=== PATIENT | male | born 1985 | race Caucasian/White ===

== ENCOUNTER 2020-11-14 08:22 | Outpatient (REF) | payer OTHER, SELFPAY ==
[2020-11-14 09:10] LABS: MANUAL DIFF FLAG NO
[2020-11-14 09:13] LABS: Basophils Absolute Auto 0.1 X10*3/uL (0.0-0.2); Eosinophils Absolute Auto 0.8 X10*3/uL (0.0-0.4); Eosinophils Percent Auto 13.1 % (0-4); Hemoglobin 15.1 g/dl (14.0-18.0); Imm Gran Abs Auto 0.01 X10*3/uL (0.00-0.03); Imm Gran Pct Auto 0.2 % (0.0-0.4); Lymphocytes Absolute Auto 1.3 X10*3/uL (1.2-4.9); Mean Corpuscular HGB Conc 33.6 g/dl (31.0-36.0); Mean Corpuscular Hemoglobin 30.8 pg (27.0-33.0); Mean Corpuscular Volume 91.6 fL (80-98); Mean Platelet Volume 10.6 fL (9.4-12.4); Monocytes Absolute Auto 0.6 X10*3/uL (0.1-1.2); Monocytes Percent Auto 9.2 % (2-11); Neutrophils Absolute Auto 3.4 X10*3/uL (2.0-8.3); Neutrophils Percent Auto 55.5 % (45-73); Platelet Count 277 X10*3/uL (160-400); Red Blood Count 4.91 X10*6/uL (4.60-5.80); Red Cell Distribution Width 12.7 % (11.0-16.0); White Blood Count 6.1 X10*3/uL (4.8-10.8)
[2020-11-14 09:27] LABS: Glucose Urine UA NEG (NEG); Leukocyte Esterase Urine NEG (NEG); Nitrite Urine NEG (NEG); Specific Gravity - Urine >= 1.030 (1.005-1.025); Urine Blood NEG (NEG); Urine Ketones 5 MG/DL (NEG); Urine Protein NEG (NEG-TRACE)
[2020-11-14 09:30] LABS: Appearance Urine CLEAR; Color Urine YELLOW
[2020-11-14 09:50] LABS: Alanine Aminotransferase 255 U/L (0-40); Albumin Level 4.6 g/dL (3.5-5.0); Alkaline Phosphatase 510 U/L (39-117); Anion Gap 13 (12-20); Aspartate Amino Transferase 159 U/L (5-37); Bilirubin Total 1.8 mg/dL (0.0-1.0); Blood Urea Nitrogen 15 mg/dL (9-16); Calcium 9.5 mg/dL (8.4-10.2); Carbon Dioxide 30 mmol/L (22-29); Chloride 102 mmol/L (96-108); Cholesterol 144 mg/dL; Estimated Glomerular Filt Rate > 60; Glucose Fasting 78 mg/dL (60-99); HDL Cholesterol 42 mg/dL; LDL Cholesterol Calculated 89 mg/dl; Potassium 4.5 mmol/l (3.3-5.1); Sodium 140 mmol/L (135-145); Total Protein 7.7 g/dL (6.5-8.0); Triglycerides 67 mg/dL
== END 2020-11-14 08:23 | disposition home or self-care (01) ==
LOC: HO.LAB 08:22
PROVIDERS: PCP Internal Medicine; Visit Provider Internal Medicine
DX: Z00.00 Encounter for general adult medical examination without abnormal findings (principal); R94.5 Abnormal results of liver function studies
CPT/HCPCS: 36415; 80053; 80061; 81003; 85025

== ENCOUNTER 2021-05-17 16:06 | Outpatient (REF) | payer OTHER, SELFPAY ==
[2021-05-17 17:30] LABS: Alanine Aminotransferase 105 U/L (0-40); Albumin Level 4.5 g/dL (3.5-5.0); Alkaline Phosphatase 313 U/L (39-117); Aspartate Amino Transferase 84 U/L (5-37); Bilirubin Direct 0.6 mg/dL (0.0-0.5); Bilirubin Total 1.5 mg/dL (0.0-1.0); Total Protein 7.6 g/dL (6.5-8.0)
== END 2021-05-17 16:07 | disposition home or self-care (01) ==
LOC: HO.LNP 16:06
PROVIDERS: Visit Provider Internal Medicine
DX: R79.89 Other specified abnormal findings of blood chemistry (principal)
CPT/HCPCS: 80076

== ENCOUNTER 2021-11-27 10:40 | Outpatient (REF) | payer OTHER, SELFPAY ==
[2021-11-27 10:43] LABS: MANUAL DIFF FLAG NO
[2021-11-27 11:04] LABS: Basophils Absolute Auto 0.1 X10*3/uL (0.0-0.2); Basophils Percent Auto 1.3 % (0-2); Eosinophils Absolute Auto 0.7 X10*3/uL (0.0-0.4); Eosinophils Percent Auto 12.2 % (0-4); Hematocrit 45.8 % (42.0-52.0); Hemoglobin 15.2 g/dl (14.0-18.0); Imm Gran Abs Auto 0.01 X10*3/uL (0.00-0.03); Imm Gran Pct Auto 0.2 % (0.0-0.4); Lymphocytes Absolute Auto 1.3 X10*3/uL (1.2-4.9); Lymphocytes Percent Auto 22.8 % (20-40); Mean Corpuscular HGB Conc 33.2 g/dl (31.0-36.0); Mean Corpuscular Hemoglobin 30.5 pg (27.0-33.0); Mean Corpuscular Volume 91.8 fL (80.0-98.0); Monocytes Absolute Auto 0.7 X10*3/uL (0.1-1.2); Neutrophils Absolute Auto 2.8 x10*3/uL (2.0-8.3); Neutrophils Percent Auto 51.5 % (45-73); Platelet Count 266 X10*3/uL (160-400); Red Blood Count 4.99 X10*6/uL (4.60-5.80); Red Cell Distribution Width 12.5 % (11.0-16.0); White Blood Count 5.5 X10*3/uL (4.8-10.8)
[2021-11-27 11:07] LABS: Appearance Urine CLEAR; Color Urine YELLOW; Glucose Urine UA NEG (NEG); Leukocyte Esterase Urine NEG (NEG); Nitrite Urine NEG (NEG); PH 5.5 (5.0-8.0); Urine Blood NEG (NEG); Urine Ketones NEG (NEG); Urine Protein NEG (NEG-TRACE)
[2021-11-27 11:44] LABS: Alanine Aminotransferase 152 U/L (0-40); Albumin Level 4.5 g/dL (3.5-5.0); Alkaline Phosphatase 478 U/L (39-117); Anion Gap 12 (12-20); Aspartate Amino Transferase 107 U/L (5-37); Bilirubin Total 1.9 mg/dL (0.0-1.0); Blood Urea Nitrogen 14 mg/dL (9-16); Calcium 9.8 mg/dL (8.4-10.2); Carbon Dioxide 30 mmol/L (22-29); Chloride 102 mmol/L (96-108); Cholesterol 147 mg/dL; Estimated Glomerular Filt Rate > 60; Glucose Fasting 82 mg/dL (60-99); HDL Cholesterol 42 mg/dL; LDL Cholesterol Calculated 91 mg/dl; Potassium 4.7 mmol/L (3.3-5.1); Sodium 139 mmol/L (135-145); Total Protein 7.9 g/dL (6.5-8.0); Triglycerides 72 mg/dL
== END 2021-11-27 10:41 | disposition home or self-care (01) ==
LOC: HO.LNP 10:40
PROVIDERS: Visit Provider Internal Medicine
DX: Z00.00 Encounter for general adult medical examination without abnormal findings (principal); Z12.5 Encounter for screening for malignant neoplasm of prostate; K83.01 Primary sclerosing cholangitis
CPT/HCPCS: 80053; 80061; 81003; 84153; 85025

== ENCOUNTER 2022-05-31 10:58 | Outpatient (REF) | payer OTHER, SELFPAY ==
[2022-05-31 12:01] LABS: Alanine Aminotransferase 107 U/L (0-40); Albumin Level 4.6 g/dL (3.5-5.0); Alkaline Phosphatase 314 U/L (39-117); Aspartate Amino Transferase 94 U/L (5-37); Bilirubin Direct 0.6 mg/dL (0.0-0.5); Bilirubin Total 1.5 mg/dL (0.0-1.0); Total Protein 7.7 g/dL (6.5-8.0)
== END 2022-05-31 10:59 | disposition home or self-care (01) ==
LOC: HO.LNP 10:58
PROVIDERS: Visit Provider Internal Medicine
DX: K83.01 Primary sclerosing cholangitis (principal)
CPT/HCPCS: 80076

== ENCOUNTER 2022-12-03 07:23 | Outpatient (REF) | payer OTHER, SELFPAY ==
--- NOTE | ~2022-12-03 | US_ITS ---
EXAMINATION: US ABDOMEN COMPLETE CLINICAL INFORMATION: Primary sclerosing cholangitis. COMPARISON: Ultrasound abdomen complete 01/26/2019 and 11/13/2016. MRI abdomen without contrast 09/07/2013. TECHNIQUE: Real-time imaging of the abdominal viscera. FINDINGS: PANCREAS: Normal. ABDOMINAL AORTA: The proximal, mid, and distal segments are normal in caliber. INFERIOR VENA CAVA: Visualized portions are normal. LIVER: The liver is normal in size. The liver contour is normal. The caudate lobe is prominent. No focal hepatic lesion. There is no intrahepatic biliary duct dilatation seen. There is mild increase in echogenicity of intrahepatic ductal martinez. GALLBLADDER: Normal. The gallbladder is physiologically distended without evidence of stones, sludge, polyps, wall thickening or pericholecystic fluid. COMMON BILE DUCT: Normal in caliber measuring 0.4 cm in diameter. RIGHT KIDNEY: At the upper pole, a 9 mm anechoic, simple, benign cyst is seen At the interpolar aspect, a 6 mm and 8 mm anechoic, simple, benign, simple cysts are seen. No hydronephrosis or renal calculi. The kidney measures 11.4 cm in maximum dimension. LEFT KIDNEY: Normal. No hydronephrosis. No renal calculi or focal parenchymal lesions. The kidney measures 10.5 cm in maximum dimension. SPLEEN: Normal. The spleen measures 12.4 cm in maximum dimension. FREE FLUID: None. US/US abdomen complete IMPRESSION: 1. There is generalized increase in hepatic echotexture, consistent with fatty infiltration or hepatocellular disease. Please correlate clinically. No focal hepatic mass or intrahepatic biliary dilatation is seen. 2. There is some increase in echogenicity of portal triads, which can be associated with primary sclerosing cholangitis. 3. There are benign, simple right renal cysts, for which no imaging follow-up is recommended.
[2022-12-03 09:19] LABS: Hematocrit 44.9 % (42.0-52.0); Mean Corpuscular HGB Conc 33.4 g/dl (31.0-36.0); Mean Corpuscular Hemoglobin 30.3 pg (27.0-33.0); Mean Corpuscular Volume 90.7 fL (80.0-98.0); Mean Platelet Volume 10.4 fL (9.4-12.4); Platelet Count 285 X10*3/uL (160-400); Red Blood Count 4.95 X10*6/uL (4.60-5.80); Red Cell Distribution Width 12.9 % (11.0-16.0); White Blood Count 5.5 X10*3/uL (4.8-10.8)
[2022-12-03 10:09] LABS: Alanine Aminotransferase 162 U/L (0-40); Albumin Level 4.5 g/dL (3.5-5.0); Alkaline Phosphatase 396 U/L (39-117); Aspartate Amino Transferase 99 U/L (5-37); Bilirubin Direct 0.4 mg/dL (0.0-0.5); Bilirubin Total 1.5 mg/dL (0.0-1.0); Total Protein 7.7 g/dL (6.5-8.0)
[2022-12-06 16:23] LABS: FIB-ALT 146 U/L (9-46); FIB-Alpha-2-Macroglobulin 181 mg/dL (106-279); FIB-Apolipoprotein A1 115 mg/dL (94-176); FIB-GGT 647 U/L (3-90); FIB-Haptoglobin 119 mg/dL (43-212); FIB-Total Bilirubin 1.1 mg/dL (0.2-1.2); Liver Fibrosis Score 0.63; Liver Fibrosis Stage F3; Nec Inflam Act Grade A3
== END 2022-12-03 07:24 | disposition home or self-care (01) ==
LOC: HO.US 07:23
PROVIDERS: PCP Internal Medicine; Visit Provider Internal Medicine Gastroenterology
DX: K83.01 Primary sclerosing cholangitis (principal)
CPT/HCPCS: 36415; 76700; 80076; 81596; 85027; 85610

== ENCOUNTER 2022-12-10 06:58 | Day surgery (SDC) | payer OTHER, SELFPAY ==
[2022-12-10 07:08] VITALS: BMI 23.3
[2022-12-10 07:14] VITALS: BP 118/80; PULSE 68; RESP 16; TEMP 37.2; O2SAT 99
[2022-12-10] MEDS: Lactated Ringers 1,000 ML 50 ML IVCONT (07:32)
--- NOTE | 2022-12-10 08:00 | P.HPSUR_ITS ---
Pre-Procedural Eval Section A Date of Service: 12/10/22 Section B Chief Complaint: Ulcerative (chronic) pancolitis without complicati Details of Present Illness: see H&P no changes Relevant Family History (Specify if Yes): No Relevant Social History: None Present Medications: see Short Stay Collaborative assessment Medical History: No relevant PMH History of Previous Operations: No relevant previous surgery Allergies: Allergies Allergy/AdvReac Type Severity Reaction Status Date / Time No Known Allergies Allergy Verified 12/09/22 12:12 Review of Systems Sugical H&P ROS: Negative: Constitution, Cardiovascular, Respiratory, Neurol ogical, Psychiatric, Hem-Onc, Allergic/Immunologic, Gastrointestinal, Genitourinary, Musculoskeletal, Integumentary, Endocrine and Eyes/Ears/Nose/Throat Exam Surgical H&P Exam: Normal: HEENT, Normal: Heart, Normal: Lungs, Normal: Extremities, Normal: Abdomen, Normal: Skin and Normal: Neurological Plan Diagnosis/Plan: Unchanged I have reviewed the history and physical and performed a pertinent physical examination on my patient. No changes have occurred unless specified. Time Spent With Patient Time: Total time managing care of this patient today ____ minutes.
--- NOTE | 2022-12-10 08:09 | P.CONAN_ITS ---
HPI - Anesthesia Eval Consult details Narrative: 37 M for colonoscopy [facility] Past Medical History Medical History (Updated 12/09/22 @ 12:13 by Mary Khan, RN) Primary sclerosing cholangitis Ulcerative colitis Functional capacity: independent ambulation Family History Family history of problems with anesthesia: No Surgical History Surgical History (Updated 12/10/22 @ 07:07 by Radha Morton RN) H/O colonoscopy H/O right inguinal hernia repair History of hand surgery History of Problems with Anesthesia: No Social History Social History Patient Tobacco Use Status: Never used Tobacco Use of substances other than those prescribed or required for medical reasons: No Are you DNR?: No Advance Directives: No Advance Directives Information Provided: Yes Meds Allergies Allergy/AdvReac Type Severity Reaction Status Date / Time No Known Allergies Allergy Verified 12/09/22 12:12 Active Medications: Current Medications Lactated Ringer's (Lr) 1,000 mls @ 50 mls/hr IVCONT .Q20H WAN Last Admin: 12/10/22 07:32 Dose: 50 mls/hr Home Medications Medication Instructions Recorded Confirmed Last Taken Type mesalamine 1.2 gram tablet,delayed 2.4 g PO DAILY 12/09/22 12/09/22 Unknown History release (Lialda) ursodiol 250 mg tablet 250 mg PO QID 12/09/22 12/09/22 Unknown History Exam Exam Date and Time: December 10, 2022 0809 Height,Weight and Vital Signs: Height 5 ft 4 in Weight 61.689 kg Last Vital Signs Temp 99.0 F 12/10/22 07:14 Pulse 68 12/10/22 07:14 Resp 16 12/10/22 07:14 BP 118/80 12/10/22 07:14 Pulse Ox 99 12/10/22 07:14 O2 Del Method 12/10/22 07:14 Airway Mallampati Class: III TM Dist: >3cm Neck ROM: Full Loose/Missing/Broken Teeth: Yes (Front upper chipped ) Heart: S1,S2 Lungs: b/l breath sounds Assessment and Plan Assessment Anesthesia Assessment: Anesthesia Plan Discussed and Chart Reviewed Final Anesthetic Review Family History of Problems with Anesthesia: No History of Problems with Anesthesia: No NPO: Yes ASA Class: II Final Preanesthetic Review: Meds/Allgs Chart Reviewed, Consent Obtained/Reviewed and Anes Risks/Benef Reviewed Patient Risk: Intermediate Procedure Risk: Intermediate Anesthetic Plan Anesthetic Plan: MAC: Disposition: Standard PACU
[2022-12-10 08:44] VITALS: BP 85/50; PULSE 67; RESP 18; TEMP 36.8; O2SAT 99
--- NOTE | 2022-12-10 08:44 | PM.OP ---
Brief Operative Note Date of Service: 12/10/22 Pre-op diagnosis: ulcerative colitis Post-op diagnosis: same Procedure: colonscopy Surgeon: Lacho Eagle Anesthesia: MAC Was an Business Integration Manager used for this Procedure?: No Estimated blood loss (mL): 5 Pathology: other Condition: stable Disposition: PACU
[2022-12-10 08:59] VITALS: BP 89/49; PULSE 76; RESP 17; O2SAT 96
[2022-12-10 09:09] VITALS: BP 98/57; PULSE 70; RESP 18; TEMP 36.1; O2SAT 96
--- NOTE | 2022-12-10 12:03 | OP_ITS ---
SURGEON: Lacho Eagle MD INDICATIONS: Ulcerative colitis. PREOPERATIVE DIAGNOSIS: POSTOPERATIVE DIAGNOSIS: PROCEDURE PERFORMED: Colonoscopy to the terminal ileum with biopsy. ESTIMATED BLOOD LOSS: COMPLICATIONS: ANESTHESIA: Monitored anesthesia care. ASSISTANTS: SPECIMENS: DESCRIPTION OF PROCEDURE: Date: 12/10/22. History and physical was performed. The risks and benefits of the procedure were explained to the patient. Informed consent was obtained. The patient was placed in the left lateral decubitus position. A digital rectal exam was performed and was found to be normal. The Olympus pediatric video colonoscope was introduced into the rectum and advanced to the cecum without difficulty. The cecum was identified by transillumination, palpation, and identification of ileocecal valve examination was performed. The scope was removed. He tolerated the procedure well and was returned to the recovery area in stable condition. FINDINGS: The terminal ileum was examined and appeared normal. This was biopsied. The visualized colonic mucosa appeared normal with the exception of an approximately 5 cm area in the hepatic flexure, which showed some mild focal colitis. No other signs of active colitis were identified. Biopsies were obtained beginning in the cecum extending to the rectum approximately every 10 cm in all 4 quadrants. The quality of the prep was good. Retroflexed examination showed some moderate-sized internal hemorrhoids. There were some external skin tags as well. IMPRESSION: Ulcerative colitis. RECOMMENDATION: Follow up the biopsy results. MD GISEL Garcia/PJ / [id number] MTDD
== END 2022-12-10 09:22 | disposition home or self-care (01) ==
PROVIDERS: PCP Internal Medicine; Visit Provider Internal Medicine Gastroenterology
PROC: 0DJD8ZZ Inspection of Lower Intestinal Tract, Via Natural or Artificial Opening Endoscopic (ICD-10-PCS; CPT 45378; principal; 2022-12-10 08:10)
DX: K51.00 Ulcerative (chronic) pancolitis without complications (principal); K64.8 Other hemorrhoids; K64.4 Residual hemorrhoidal skin tags
CPT/HCPCS: 45380; 88305

== ENCOUNTER 2023-01-02 10:53 | Outpatient (REF) | payer OTHER, SELFPAY ==
[2023-01-02 10:57] LABS: MANUAL DIFF FLAG NO
[2023-01-02 11:28] LABS: Appearance Urine Clear; Color Urine Yellow; Glucose Urine UA Negative (Negative); Leukocyte Esterase Urine Negative (Negative); Nitrite Urine Negative (Negative); PH 6.5 (5.0-9.0); Specific Gravity - Urine 1.015 (1.005-1.025); Urine Blood Negative (Negative); Urine Ketones Negative (Negative); Urine Protein Negative (Neg-Trace)
[2023-01-02 11:32] LABS: Bacteria Urine None Seen (None Seen); Hyaline Casts Urine 0-2 /LPF (0-2); RBC Urine 0-2 /HPF (0-2); Squamous Epithelial Cell Urine 0-2 /HPF (0-2); WBC Urine 0-5 /HPF (0-5)
[2023-01-02 11:39] LABS: Alanine Aminotransferase 190 U/L (0-40); Albumin Level 4.4 g/dL (3.5-5.0); Alkaline Phosphatase 381 U/L (39-117); Anion Gap 14 (12-20); Aspartate Amino Transferase 108 U/L (5-37); Bilirubin Total 1.9 mg/dL (0.0-1.0); Blood Urea Nitrogen 11 mg/dL (9-16); Calcium 9.1 mg/dL (8.4-10.2); Carbon Dioxide 29 mmol/L (22-29); Chloride 102 mmol/L (96-108); Cholesterol 162 mg/dL; Estimated Glomerular Filt Rate > 60; Glucose Fasting 79 mg/dL (60-99); HDL Cholesterol 31 mg/dL; LDL Cholesterol Calculated 108 mg/dl; Potassium 4.5 mmol/L (3.3-5.1); Sodium 140 mmol/L (135-145); Total Protein 7.6 g/dL (6.5-8.0); Triglycerides 119 mg/dL
[2023-01-02 11:56] LABS: PSA,Total (Free>4and<10) 2.13 ng/mL (0.00-4.00)
[2023-01-02 14:07] LABS: Basophils Absolute Auto 0.1 X10*3/uL (0.0-0.2); Basophils Percent Auto 1.4 % (0-2); Eosinophils Absolute Auto 0.8 X10*3/uL (0.0-0.4); Eosinophils Percent Auto 14.2 % (0-4); Hematocrit 44.9 % (42.0-52.0); Imm Gran Abs Auto 0.01 X10*3/uL (0.00-0.03); Imm Gran Pct Auto 0.2 % (0.0-0.4); Lymphocytes Absolute Auto 1.3 X10*3/uL (1.2-4.9); Lymphocytes Percent Auto 23.6 % (20-40); Mean Corpuscular HGB Conc 33.4 g/dl (31.0-36.0); Mean Corpuscular Hemoglobin 30.5 pg (27.0-33.0); Mean Corpuscular Volume 91.4 fL (80.0-98.0); Mean Platelet Volume 10.9 fL (9.4-12.4); Monocytes Absolute Auto 0.8 X10*3/uL (0.1-1.2); Monocytes Percent Auto 13.3 % (2-11); Neutrophils Absolute Auto 2.7 x10*3/uL (2.0-8.3); Neutrophils Percent Auto 47.3 % (45-73); Platelet Count 290 X10*3/uL (160-400); Red Blood Count 4.91 X10*6/uL (4.60-5.80); Red Cell Distribution Width 13.2 % (11.0-16.0); White Blood Count 5.6 X10*3/uL (4.8-10.8)
== END 2023-01-02 10:54 | disposition home or self-care (01) ==
LOC: HO.LNP 10:53
PROVIDERS: Visit Provider Internal Medicine
DX: Z00.00 Encounter for general adult medical examination without abnormal findings (principal); Z12.5 Encounter for screening for malignant neoplasm of prostate
CPT/HCPCS: 80053; 80061; 81001; 84153; 85025

== ENCOUNTER 2023-02-07 10:59 | Outpatient (REF) | payer OTHER, SELFPAY ==
[2023-02-07 12:16] LABS: PSA,Total (Free>4and<10) 2.59 ng/mL (0.00-4.00)
== END 2023-02-07 11:00 | disposition home or self-care (01) ==
LOC: HO.LNP 10:59
PROVIDERS: Visit Provider Internal Medicine
DX: R97.20 Elevated prostate specific antigen [PSA] (principal)
CPT/HCPCS: 84153

== ENCOUNTER 2023-07-15 10:34 | Outpatient (REF) | payer OTHER, SELFPAY ==
[2023-07-15 11:13] LABS: PSA,Total (Free>4and<10) 1.73 ng/mL (0.00-4.00)
== END 2023-07-15 10:35 | disposition home or self-care (01) ==
LOC: HO.LNP 10:34
PROVIDERS: PCP Internal Medicine; Visit Provider Internal Medicine
DX: R97.20 Elevated prostate specific antigen [PSA] (principal)
CPT/HCPCS: 84153

== ENCOUNTER 2024-01-02 10:20 | Outpatient (AMB) | payer OTHER, SELFPAY ==
--- NOTE | 2024-01-02 10:21 | A.SPINEOV_ITS ---
Intake Intake Visit Reasons: Back pain(ED follow up) Intake Note: Mr. Smith is here today for Back pain. CT is uploaded in the chart. Splunk Consultant Required: No Allergies No Known Allergies Allergy (Verified 12/09/22 12:12) Assessment & Plan Assessment & Plan (1) Lumbar compression fracture: Code(s): S32.000A - Wedge compression fracture of unspecified lumbar vertebra, initial encounter for closed fracture (2) Thoracic compression fracture: Code(s): S22.000A - Wedge compression fracture of unspecified thoracic vertebra, initial encounter for closed fracture Plan Dear Dr. Sierra, Thank you for referring Javi to our office today. He is a pleasant 38 y/o male who comes in today with a chief complaint of mid-low back pain. 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 He was evaluated 2 days later at [facility], and was found to have compression fractures at T11 and L4 shown on CT imaging. He comes in today wearing a TLSO brace. He has a pertinent medical history of ulcerative colitis and cholangitis. He states that his pain is worse with lifting and standing and is somewhat relieved by lying down. He reports no radiation of his pain, no lower extremity involvement, and no numbness/tingling/significant weakness. He states he has been taking oxycodone 5 mg to help alleviate the pain. He also reports that his brace provides some pain alleviation. PMH: Ulcerative colitis, cholangitis, right groin hernia repair, hand surgery on his left hand to remove bone spur. Social hx: The patient does not smoke, reports no substance use. Medications: Mesalamine, ursodiol. Allergies: NKDA. Physical exam: The patient has 5/5 strength in his upper and lower extremities. He does elicit some pain to his upper extremities with strength testing. His reflexes are intact. He is able to ambulate well. He does state that rising from a seated position is quite uncomfortable, but he is able to do so without assistance. When describing his pain he points directly to his lower thoracic/upper lumbar spine. He states the pain is well localized to this area and does not radiate. (-) clonus, (-) straight leg raise. Imaging review: CT imaging uploaded to patient's chart of the lumbar and t horacic spine show severe compression fracture at T11, and mild compression fracture at L4. There are some signs of retropulsion when reviewing both compression fractures on CT, but it is difficult to assess any nerve root impingement or spinal cord/central canal stenosis as a result of these fractures without further imaging. 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 He states that he was evaluated at [facility] and put in a TLSO brace. He was instructed to remain in this brace at all times except when sleeping. He does state that it provides him some comfort. There is no evidence to suggest that compression fractures of thi s nature require around the clock bracing. I advised him to wear the brace if it provides some comfort but did not give him strict guidelines to constantly wear the brace. The patient requires MRI imaging of both his thoracic spine in his lumbar spine to ensure that there is no significant nerve root, spinal cord, or central canal impingement as a result of these compression fractures. I also will be referring the patient to Dr. Foster here at [facility] for an evaluation regarding potential kyphoplasty. I sent him a message today via [employer] text regarding this case. Thank you for allowing us to care for your patient. The total time spent with this visit with this patient was 45 minutes reviewing history, physical exam, CT imaging review, and implementation of treatment plan or further diagnostic testing Vasu Connell MD,PhD [facility] Orders: Orders MR lumbar spine wo con Today S32.000A - Wedge compression fracture of unspecified lumbar vertebra, initial encounter for closed fracture MR thoracic spine wo con Today S22.000A - Wedge compression fracture of unspecified thoracic vertebra, initial encounter for closed fracture Coding Level of Care Code New Pt Level 4 (79328) Diagnoses Lumbar compression fracture S32.000A Thoracic compression fracture S22.000A
== END 2024-01-02 11:02 | disposition home or self-care (01) ==
PROVIDERS: PCP Internal Medicine; Visit Provider Physician Assistant
DX: S32.000A Wedge compression fracture of unspecified lumbar vertebra, initial encounter for closed fracture (principal); S22.000A Wedge compression fracture of unspecified thoracic vertebra, initial encounter for closed fracture
CPT/HCPCS: 99204

== ENCOUNTER → 2024-01-02 10:20 | Outpatient (BNVA) | payer OTHER, SELFPAY | PROVIDERS: PCP Internal Medicine; Visit Provider Physician Assistant | DX: S32.000A Wedge compression fracture of unspecified lumbar vertebra, initial encounter for closed fracture (principal); S22.000A Wedge compression fracture of unspecified thoracic vertebra, initial encounter for closed fracture | CPT/HCPCS: 99202 ==

== ENCOUNTER 2024-01-07 07:51 | Outpatient (AMB) | payer OTHER, SELFPAY ==
--- NOTE | 2024-01-07 07:52 | A.OFFVIS_ITS ---
Intake Vital Signs 01/07/24 07:57 Height 5 ft 4 in Weight 133 lb BMI 22.8 BP 104/64 Blood Pressure Location Lt brachial Position Sitting Respiration 12 Pulse 88 Pulse Source Pulse Oximeter Pulse Oximetry (%) 97 Oxygen Delivery Method Room Air Intake Visit Reasons: WEDGE COMPRESSION FRACTURE Allergies No Known Allergies Allergy (Verified 01/07/24 07:59) Medication List - Last Reconciled 01/07/24 by Nita Izaguirre LPN mesalamine (Lialda) 2.4 grams PO DAILY oxycodone 5 mg PO QID PRN ursodiol 250 mg PO QID HPI WEDGE COMPRESSION FRACTURE HPI Details 38-year-old male who presents today to t he office for a wedge compression fracture. The patient reports mid and low back pain. 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 He was seen at [facility] and underwent CT scan which showed severe compression fractures at T11 and moderate compress ion fracture at L4. He was placed in TLSO brace at hospital. He rates his pain level at 7-8/10 in intensity. He states that his pain is worse with lifting, standing prolonged sitting and standing and is somewhat relieved by lying down. The pain also wakes him up at night. He is unable to fall asleep. He reports no radiation of his pain. He has been taking oxycodone to help with his symptoms. He has a longstanding history of ulcerative colitis since 2010. He is currently on Lialda. He recently had a CT scan of abd/pelvis. He denies any genetic abnormalities. The patient is planning to establish care with an pet care technician. His last colonoscopy was last year, which was unremarkable. 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 [facility] Medical History (Updated 01/07/24 @ 08:30 by Boo Foster MD) Ulcerative colitis Primary sclerosing cholangitis Surgical History (Updated 12/10/22 @ 07:07 by Radha Morton RN) History of hand surgery H/O right inguinal hernia repair H/O colonoscopy Social History Patient Tobacco Use Status: Never used Tobacco Review of Systems Const All systems reviewed & are unremarkable except as noted in HPI and below Physical Exam Vital Signs: Last Vital Signs Pulse 88 01/07/24 07:57 Resp 12 01/07/24 07:57 BP 104/64 01/07/24 07:57 Pulse Ox 97 01/07/24 07:57 Oxygen Delivery Method Room Air 01/07/24 07:57 BMI result Body Mass Index 22.8 General: Appears afebrile. Alert and oriented. Mood and affect appropriate. Follows and participates in conversation appropriately. Respiratory effort is unlabored. Able to transition from sit to stand unassisted. Ambulates with bilaterally normal heel strike and toe off. There is tenderness to palpation overlying the lower thoracic vertebral bodies as well as the lower lumbar vertebral bodies. Results Reviewed Results Reviewed: CT scan showing compression fractures at T11 and L4. Assessment & Plan Assessment & Plan (1) Collapsed vertebra, not elsewhere classified, site unspecified, initial encounter for fracture: Code(s): M48.50XA - Collapsed vertebra, not elsewhere classified, site unspecified, initial encounter for fracture (2) Lumbar compression fracture: Code(s): S32.000A - Wedge compression fracture of unspecified lumbar vertebra, initial encounter for closed fracture (3) Thoracic compression fracture: Code(s): S22.000A - Wedge compression fracture of unspecified thoracic vertebra, initial encounter for closed fracture Plan 38-year-old male presenting with nontraumatic, spontaneous compression fractures of the T11 and L4 vertebral bodies with evidence of osteopenia on the CT scan report. I will send him for a bone density scan to rule out osteoporosis as a cause of his nontraumatic compression fractures. He also has UC, but had a colonoscopy last year that was negative for any malignancy. He does not have any history of corticosteroid use or metabolic abnormalities. I discussed the kyphoplasty procedure with him and informed him that we would follow up regarding the procedure after his MRI and bone density scans. Scribed for Dr. Foster by Catrachito Medina, medical office receptionist, on 01/07/2024. I, Dr. Foster, have personally reviewed and agree with the information entered by the scribe. Orders: Orders XR DEXA axial skeleton 01/07/24 M48.50XA - Collapsed vertebra, not elsewhere classified, site unspecified, initial encounter for fracture, S22.000A - Wedge compression fracture of unspecified thoracic vertebra, initial encounter for closed fracture, S32.000A - Wedge compression fracture of unspecified lumbar vertebra, initial encounter for closed fracture Coding Level of Care Code New Pt Level 4 (79671) Diagnoses Collapsed vertebra, not elsewhere classified, site unspecified, initial encounter for fracture M48.50XA Lumbar compression fracture S32.000A Thoracic compression fracture S22.000A
[2024-01-07 07:57] VITALS: BP 104/64; PULSE 88; RESP 12; O2SAT 97; BMI 22.8
== END 2024-01-07 08:37 | disposition home or self-care (01) ==
LOC: HO.PMC 07:51
PROVIDERS: PCP Internal Medicine; Referring Provider Physician Assistant; Visit Provider Internal Medicine
DX: S22.000A Wedge compression fracture of unspecified thoracic vertebra, initial encounter for closed fracture (principal)
CPT/HCPCS: 99204

== ENCOUNTER → 2024-01-07 07:51 | Outpatient (BNVA) | payer OTHER, SELFPAY | PROVIDERS: PCP Internal Medicine; Referring Provider Physician Assistant; Visit Provider Internal Medicine | DX: M48.54XA Collapsed vertebra, not elsewhere classified, thoracic region, initial encounter for fracture (principal); M48.56XA Collapsed vertebra, not elsewhere classified, lumbar region, initial encounter for fracture; S32.000A Wedge compression fracture of unspecified lumbar vertebra, initial encounter for closed fracture; S22.000A Wedge compression fracture of unspecified thoracic vertebra, initial encounter for closed fracture | CPT/HCPCS: 99202 ==

== ENCOUNTER 2024-01-10 09:24 | Outpatient (REF) | payer OTHER, SELFPAY ==
--- NOTE | ~2024-01-10 | MR_ITS ---
EXAMINATION: MR THORACIC SPINE WITHOUT CONTRAST MRI LUMBAR SPINE WITHOUT CONTRAST CLINICAL INFORMATION: Wedge compression fracture. Evaluate nerve root and spinal cord impingement. COMPARISON: CT thoracic spine 12/27/2023. TECHNIQUE: Multiplanar MR imaging of the thoracic spine and lumbar spine was performed without contrast. FINDINGS: Thoracic spine: There is bone marrow edema associated with acute subacute compression fractures of the T11 and T10 vertebral bodies. At T11 there is impaction of the upper endplate resulting in approximately 75% vertebral height loss centrally and slight anterior wedging. There is retropulsion of posterior cortex of the T11 vertebral body causing abutment on the ventral surface of the lower thoracic cord without canal compromise or overt cord compression. T10 there is subtle impaction of the upper endplate resulting in 20% vertebral height loss centrally. No retropulsion of posterior cortex at this level. Vertebral body heights otherwise maintained. Vertebral disc height and signal intensity is preserved at all levels. There is no canal or neuroforaminal compromise. No cord compression or abnormal intramedullary signal changes. Limited visualization of intrathoracic anatomy reveals no abnormal finding. Specifically no paraspinal soft tissue mass or collection. Lumbar spine: There is bone marrow edema associated with an acute to subacute compression fracture of the L4 vertebral body. Specifically there is impaction of the upper endplate resulting in approximately 20% vertebral height loss centrally. There is subtle retropulsion of the upper posterior cortex of the L4 vertebral body. Vertebral heights are otherwise maintained at all levels. Intervertebral disc height and signal intensity is preserved. The tip of the conus medullaris is located at L1-L2. No mass effect on the conus. Visualized distal cord signal intensity is normal. At L3-L4 there is a slightly bulging disc. No canal stenosis. No mass effect on the traversing or foraminal nerve roots. Annular contours are otherwise normal at all levels and there is no canal or neuroforaminal compromise within the lumbar spine. Limited visualization of the retroperitoneal anatomy reveals no abnormal finding. Psoas and paraspinal muscle groups are symmetric. MR/MR thoracic spine wo con IMPRESSION: There is bone marrow edema associated with acute to subacute compression fractures of the T11, T10, and L4 vertebral bodies. There is 75% vertebral height loss centrally at T11 and 20% vertebral height loss centrally at T10 and L4. There is retropulsion of posterior cortex at T11 and L4 however there is no canal or neuroforaminal compromise. No cord compression or abnormal intramedullary signal changes within the lower thoracic cord.
[2024-01-10 09:47] LABS: MANUAL DIFF FLAG NO
[2024-01-10 10:19] LABS: Basophils Absolute Auto 0.1 X10*3/uL (0.0-0.2); Basophils Percent Auto 0.7 % (0-2); Eosinophils Absolute Auto 0.3 X10*3/uL (0.0-0.4); Eosinophils Percent Auto 4.6 % (0-4); Hematocrit 43.1 % (42.0-52.0); Hemoglobin 14.4 g/dl (14.0-18.0); Imm Gran Abs Auto 0.02 X10*3/uL (0.00-0.03); Imm Gran Pct Auto 0.3 % (0.0-0.4); Lymphocytes Absolute Auto 1.4 X10*3/uL (1.2-4.9); Lymphocytes Percent Auto 19.8 % (20-40); Mean Corpuscular HGB Conc 33.4 g/dl (31.0-36.0); Mean Corpuscular Hemoglobin 30.6 pg (27.0-33.0); Mean Corpuscular Volume 91.5 fL (80.0-98.0); Mean Platelet Volume 10.3 fL (9.4-12.4); Monocytes Absolute Auto 0.7 X10*3/uL (0.1-1.2); Monocytes Percent Auto 9.5 % (2-11); Neutrophils Absolute Auto 4.5 x10*3/uL (2.0-8.3); Neutrophils Percent Auto 65.1 % (45-73); Platelet Count 313 X10*3/uL (160-400); Red Blood Count 4.71 X10*6/uL (4.60-5.80); Red Cell Distribution Width 12.6 % (11.0-16.0)
[2024-01-10 11:32] LABS: Alanine Aminotransferase 99 U/L (0-40); Albumin Level 4.3 g/dL (3.5-5.0); Alkaline Phosphatase 572 U/L (39-117); Anion Gap 11 (12-20); Aspartate Amino Transferase 66 U/L (5-37); Bilirubin Total 0.9 mg/dL (0.0-1.0); Blood Urea Nitrogen 13 mg/dL (9-16); Calcium 9.4 mg/dL (8.4-10.2); Carbon Dioxide 31 mmol/L (22-29); Chloride 101 mmol/L (96-108); Estimated Glomerular Filt Rate > 60; Glucose Fasting 83 mg/dL (60-99); Potassium 4.1 mmol/L (3.3-5.1); Sodium 139 mmol/L (135-145); Total Protein 7.8 g/dL (6.5-8.0)
== END 2024-01-10 09:25 | disposition home or self-care (01) ==
LOC: HO.MRI 09:24
PROVIDERS: Absent Provider Internal Medicine; PCP Internal Medicine; Visit Provider Physician Assistant
DX: S22.000D Wedge compression fracture of unspecified thoracic vertebra, subsequent encounter for fracture with routine healing (principal); S32.000D Wedge compression fracture of unspecified lumbar vertebra, subsequent encounter for fracture with routine healing
CPT/HCPCS: 36415; 72146; 72148; 80053; 85025

== ENCOUNTER 2024-01-14 13:45 | Outpatient (REF) | payer OTHER, SELFPAY ==
--- NOTE | ~2024-01-14 | MM_ITS ---
EXAMINATION: BONE DENSITOMETRY CLINICAL INDICATION: Collapsed vertebra, not elsewhere classified, site unspecified. COMPARISON: This is the patient's baseline examination. TECHNIQUE: Using a [employer] DXA System (software version: 13.1) manufactured by [employer], dual-energy x-ray absorptiometry was performed of the lumbar spine and left hip. The images are of good technical quality. Based on ISCD (International Society for Clinical Densitometry) standards of reporting, Z-scores instead of T-scores are reported in this male patient younger than age 50. Summary results are attached. FINDINGS: AP SPINE L1-L4: BMD 0.642 g/cm2, T-score -4.8, Z-score -4.2, Z-score below expected range for age. LEFT FEMUR, NECK: BMD 0.924 g/cm2, T-score -1.1, Z-score -0.5, Z-score within expected range for age. LEFT FEMUR, TOTAL: BMD 0.961 g/cm2, T-score -1.0, Z-score -0.4, Z-score within expected range for age. IDENTIFIED RISK FACTORS: Secondary osteoporosis (intestinal or bowel disease, chronic liver disease). HISTORY OF FRACTURE: Spine. MEDICATIONS: None listed. MM/XR DEXA axial skeleton IMPRESSION: 1. DIAGNOSIS: Based on the lowest Z-score value of -4.2 in the lumbar spine, the patient's bone density is below the expected range for age. 2. 10-YEAR FRACTURE RISK PREDICTION, FRAX: Not performed in this patient outside the age range of 50-90 years. 3. Treatment Recommendations: NOF guidelines recommend consideration for treatment in postmenopausal women and men age 50 and older presenting with the following: -A hip or vertebral (clinical or morphometric) fracture. -T-score less than or equal to -2.5 at the femoral neck or spine after appropriate evaluation to exclude secondary causes. -Low bone mass at the hip or spine and a 10-year fracture probability by FRAX of greater than or equal to 3% for hip fracture or greater than or equal to 20% for major osteoporotic fracture based on the [place] adapted WHO algorithm. 4. Other Recommendations: All treatment decisions require clinical judgment and consideration of individual patient factors, including patient preferences, comorbidities, previous drug use, risk factors not captured in the FRAX model (e.g. frailty, falls, vitamin D deficiency, increased bone turnover, interval significant decline in bone density) and possible under or overestimation of fracture risk by FRAX. Additional medical evaluation for secondary cause of low bone mineral density may be appropriate. FUTURE SCAN RECOMMENDATION: People with diagnosed cases of osteoporosis or at high risk for fracture should have regular bone mineral density tests. For patients eligible for Medicare, routine testing is allowed once every 2 years. The testing frequency can be increased to one year for patients who have rapidly progressing disease, those who are receiving or discontinuing medical therapy to restore bone mass, or have additional risk factors.
== END 2024-01-14 13:46 | disposition home or self-care (01) ==
LOC: HO.MAMMO 13:45
PROVIDERS: PCP Internal Medicine; Visit Provider Internal Medicine
DX: Z13.820 Encounter for screening for osteoporosis (principal); S32.000D Wedge compression fracture of unspecified lumbar vertebra, subsequent encounter for fracture with routine healing; S22.000D Wedge compression fracture of unspecified thoracic vertebra, subsequent encounter for fracture with routine healing
CPT/HCPCS: 77080

== ENCOUNTER 2024-01-28 08:08 | Outpatient (AMB) | payer OTHER, SELFPAY ==
[2024-01-28 08:12] VITALS: BP 110/70; PULSE 72; O2SAT 98; BMI 23.2
--- NOTE | 2024-01-28 08:12 | A.OFFVIS_ITS ---
Intake Vital Signs 01/28/24 08:12 Height 5 ft 4 in Weight 135 lb BMI 23.2 BP 110/70 Blood Pressure Location Rt brachial Position Sitting Pulse 72 Pulse Oximetry (%) 98 Oxygen Delivery Method Room Air Intake Visit Reasons: S/p MRI and Dexa Scan for Kypho Allergies No Known Allergies Allergy (Verified 01/28/24 08:12) Medication List - Last Reconciled 01/28/24 by Aye Kaur, PROCESS AREA SUPERVISOR mesalamine (Lialda) 2.4 grams PO DAILY oxycodone 5 mg PO QID PRN ursodiol 250 mg PO QID HPI S/p MRI and Dexa Scan for Kypho HPI Details 39-year-old male who presents today to t he office for review of MRI and DEXA scan for kyphoplasty Patient is here to discuss results of his MRI and DEXA scan. On interview, he denies significant pain in his lumbar spine area. Most of his pain is in the mid back region. [facility] Medical History (Updated 01/28/24 @ 09:50 by Boo Foster MD) Ulcerative colitis Primary sclerosing cholangitis Surgical History (Updated 12/10/22 @ 07:07 by Radha Morton RN) History of hand surgery H/O right inguinal hernia repair H/O colonoscopy Social History Patient Tobacco Use Status: Never used Tobacco Review of Systems Const All systems reviewed & are unremarkable except as noted in HPI and below Physical Exam Vital Signs: Last Vital Signs Pulse 72 01/28/24 08:12 BP 110/70 01/28/24 08:12 Pulse Ox 98 01/28/24 08:12 Oxygen Delivery Method Room Air 01/28/24 08:12 BMI result Body Mass Index 23.2 General: Appears afebrile. Alert and oriented. Mood and affect appropriate. Follows and participates in conversation appropriately. Respiratory effort is unlabored. Able to transition from sit to stand unassisted. Results Reviewed Results Reviewed: 01/14/24: BONE DENSITOMETRY FINDINGS: AP SPINE L1-L4: BMD 0.642 g/cm2, T-score -4.8, Z-score -4.2, Z-score below expected range for age. LEFT FEMUR, NECK: BMD 0.924 g/cm2, T-score -1.1, Z-score -0.5, Z-score within expected range for age. LEFT FEMUR, TOTAL: BMD 0.961 g/cm2, T-score -1.0, Z-score -0.4, Z-score within expected range for age. IDENTIFIED RISK FACTORS: Secondary osteoporosis (intestinal or bowel disease, chronic liver disease). HISTORY OF FRACTURE: Spine. MEDICATIONS: None listed. IMPRESSION: 1. DIAGNOSIS: Based on the lowest Z-score value of -4.2 in the lumbar spine, the patient's bone density is below the expected range for age. 2. 10-YEAR FRACTURE RISK PREDICTION, FRAX: Not performed in this patient outside the age range of 50-90 years. 3. Treatment Recommendations: NOF guidelines recommend consideration for treatment in postmenopausal women and men age 50 and older presenting with the following: -A hip or vertebral (clinical or morphometric) fracture. -T-score less than or equal to -2.5 at the femoral neck or spine after appropriate evaluation to exclude secondary causes. -Low bone mass at the hip or spine and a 10-year fracture probability by FRAX of greater than or equal to 3% for hip fracture or greater than or equal to 20% for major osteoporotic fracture based on the [place] adapted WHO algorithm. 4. Other Recommendations: All treatment decisions require clinical judgment and consideration of individual patient factors, including patient preferences, comorbidities, previous drug use, risk factors not captured in the FRAX model (e.g. frailty, falls, vitamin D deficiency, increased bone turnover, interval significant decline in bone density) and possible under or overestimation of fracture risk by FRAX. Additional medical evaluation for secondary cause of low bone mineral density may be appropriate. FUTURE SCAN RECOMMENDATION: People with diagnosed cases of osteoporosis or at high risk for fracture should have regular bone mineral density tests. For patients eligible for Medicare, routine testing is allowed once every 2 years. The testing frequency can be increased to one year for patients who have rapidly progressing disease, those who are receiving or discontinuing medical therapy to restore bone mass, or have additional risk factors. 01/10/24: MR THORACIC SPINE WITHOUT CONTRAST MRI LUMBAR SPINE WITHOUT CONTRAST FINDINGS: Thoracic spine: There is bone marrow edema associated with acute subacute compression fractures of the T11 and T10 vertebral bodies. At T11 there is impaction of the upper endplate resulting in approximately 75% vertebral height loss centrally and slight anterior wedging. There is retropulsion of posterior cortex of the T11 vertebral body causing abutment on the ventral surface of the lower thoracic cord without canal compromise or overt cord compression. T10 there is subtle impaction of the upper endplate resulting in 20% vertebral height loss centrally. No retropulsion of posterior cortex at this level. Vertebral body heights otherwise maintained. Vertebral disc height and signal intensity is preserved at all levels. There is no canal or neuroforaminal compromise. No cord compression or abnormal intramedullary signal changes. Limited visualization of intrathoracic anatomy reveals no abnormal finding. Specifically no paraspinal soft tissue mass or collection. Lumbar spine: There is bone marrow edema associated with an acute to subacute compression fracture of the L4 vertebral body. Specifically there is impaction of the upper endplate resulting in approximately 20% vertebral height loss centrally. There is subtle retropulsion of the upper posterior cortex of the L4 vertebral body. Vertebral heights are otherwise maintained at all levels. Intervertebral disc height and signal intensity is preserved. The tip of the conus medullaris is located at L1-L2. No mass effect on the conus. Visualized distal cord signal intensity is normal. At L3-L4 there is a slightly bulging disc. No canal stenosis. No mass effect on the traversing or foraminal nerve roots. Annular contours are otherwise normal at all levels and there is no canal or neuroforaminal compromise within the lumbar spine. Limited visualization of the retroperitoneal anatomy reveals no abnormal finding. Psoas and paraspinal muscle groups are symmetric. IMPRESSION: There is bone marrow edema associated with acute to subacute compression fractures of the T11, T10, and L4 vertebral bodies. There is 75% vertebral height loss centrally at T11 and 20% vertebral height loss centrally at T10 and L4. There is retropulsion of posterior cortex at T11 and L4 however there is no canal or neuroforaminal compromise. No cord compression or abnormal intramedullary signal changes within the lower thoracic cord. Assessment & Plan Assessment & Plan (1) Lumbar compression fracture: Code(s): S32.000A - Wedge compression fracture of unspecified lumbar vertebra, initial encounter for closed fracture (2) Thoracic compression fracture: Code(s): S22.000A - Wedge compression fracture of unspecified thoracic vertebra, initial encounter for closed fracture (3) Osteoporosis: Code(s): M81.0 - Age-related osteoporosis without current pathological fracture Plan I emphasized the need for instituting treatment for osteoporosis as soon as possible to prevent further compression fractures. He already has a couple of compression deformities on his thoracic and lumbar MRI scans that are not particularly painful, but are at risk for developing further loss of height. He will contact his primary care provider to set up endocrinology follow up as soon as possible. In the meanwhile, I recommended that he avoid heavy lifting, bending and excessive twisting and minimize impact sports as well to reduce the risk of further spontaneous compression fractures. For T11 compression fracture, we scheduled him for kyphoplasty on February. I will examine him on the day of the procedure to assess whether he needs any additional kyphoplasty levels in addition to the T11 given the compression deformities at T10 and L4. Scribed for Dr. Foster by Darwin Vargas, medical administrative specialist, on 01/28/2024. I, Dr. Foster, have personally reviewed and agree with the information entered by the scribe. Coding Level of Care Code Est Pt Level 4 (47956) Diagnoses Lumbar compression fracture S32.000A Thoracic compression fracture S22.000A Osteoporosis M81.0
== END 2024-01-28 08:32 | disposition home or self-care (01) ==
LOC: HO.PMC 08:08
PROVIDERS: PCP Internal Medicine; Visit Provider Internal Medicine
DX: S32.000A Wedge compression fracture of unspecified lumbar vertebra, initial encounter for closed fracture (principal); S22.000A Wedge compression fracture of unspecified thoracic vertebra, initial encounter for closed fracture; M81.0 Age-related osteoporosis without current pathological fracture
CPT/HCPCS: 99214

== ENCOUNTER → 2024-01-28 08:08 | Outpatient (BNVA) | payer OTHER, SELFPAY | PROVIDERS: PCP Internal Medicine; Visit Provider Internal Medicine | DX: M81.0 Age-related osteoporosis without current pathological fracture (principal); S32.000A Wedge compression fracture of unspecified lumbar vertebra, initial encounter for closed fracture; S22.000A Wedge compression fracture of unspecified thoracic vertebra, initial encounter for closed fracture; X58.XXXA Exposure to other specified factors, initial encounter; Y93.9 Activity, unspecified; Y92.9 Unspecified place or not applicable; Y99.9 Unspecified external cause status | CPT/HCPCS: 99212 ==

== ENCOUNTER 2024-02-05 11:25 | Day surgery (SDC) | payer OTHER, SELFPAY ==
[2024-02-03 14:20] VITALS: BMI 23.2
--- NOTE | 2024-02-03 15:13 | P.CONAN_ITS ---
Documented by User: Ifrah Klein NP 02/03/24 15:13 HPI - Anesthesia Eval Consult details Narrative: 39yo M for Kyphoplasty PMFSH Active Problems Active Problems: All Active Problems (Updated 01/28/24 @ 09:50 by Boo Foster MD) Osteoporosis (Acute) Collapsed vertebra, not elsewhere classified, site unspecified, initial encounter for fracture (Acute) Lumbar compression fracture (Acute) Thoracic compression fracture (Acute) Past Medical History Medical History Ulcerative colitis Primary sclerosing cholangitis Family History Family history of problems with anesthesia: No Surgical History Surgical History History of hand surgery H/O right inguinal hernia repair H/O colonoscopy History of Problems with Anesthesia: No Social History Social History Patient Tobacco Use Status: Never used Tobacco Use of substances other than those prescribed or required for medical reasons: No Are you DNR?: No Advance Directives: No Advance Directives Information Provided: Yes Meds Allergies Allergy/AdvReac Type Severity Reaction Status Date / Time No Known Allergies Allergy Verified 01/28/24 08:12 Home Medications ?Medication ?Instructions ?Recorded ?Confirmed ?Last Taken ?Type mesalamine 1.2 gram tablet,delayed 2.4 g PO DAILY 12/09/22 02/05/24 02/04/24 H istory release (Lialda) ursodiol 250 mg tablet 250 mg PO QID 12/09/22 02/05/24 02/04/24 History oxycodone 5 mg tablet 5 mg PO QID PRN Pain 01/07/24 02/05/24 02/03/24 History Exam Height,Weight and Vital Signs: Height 5 ft 4 in Weight 61.235 kg Pertinent Lab Results Pertinent Lab Results: Laboratory Tests 01/10/24 09:45 WBC 7.0 Hgb 14.4 Hct 43.1 Plt Count 313 Sodium 139 Potassium 4.1 Chloride 101 Carbon Dioxide 31 H BUN 13 Creatinine 0.73 Assessment and Plan Assessment Anesthesia Assessment: Chart Reviewed Final Anesthetic Review Family History of Problems with Anesthesia: No History of Problems with Anesthesia: No Documented by User: Angélica Quesada MD 02/05/24 13:50 PMFSH Past Medical History Medical History Ulcerative colitis Primary sclerosing cholangitis Surgical History Surgical History History of hand surgery H/O right inguinal hernia repair H/O colonoscopy Social History Social History Patient Tobacco Use Status: Never used Tobacco Use of substances other than those prescribed or required for medical reasons: No Are you DNR?: No Advance Directives: No Advance Directives Information Provided: Yes Meds Allergies Allergy/AdvReac Type Severity Reaction Status Date / Time No Known Allergies Allergy Verified 01/28/24 08:12 Home Medications ?Medication ?Instructions ?Recorded ?Confirmed ?Last Taken ?Type mesalamine 1.2 gram tablet,delayed 2.4 g PO DAILY 12/09/22 02/05/24 02/04/24 History release (Lialda) ursodiol 250 mg tablet 250 mg PO QID 12/09/22 02/05/24 02/04/24 History oxycodone 5 mg tablet 5 mg PO QID PRN Pain 01/07/24 02/05/24 02/03/24 History Exam Airway Mallampati Class: III (protruding central incisors) TM Dist: >3cm Neck ROM: Limited Loose/Missing/Broken Teeth: No Heart: RRR Lungs: CTA Assessment and Plan Assessment Anesthesia Assessment: Anesthesia Plan Discussed Final Anesthetic Review NPO: Yes ASA Class: III Final Preanesthetic Review: Meds/Allgs Chart Reviewed, Consent Obtained/Reviewed and Anes Risks/Benef Reviewed Patient Risk: Intermediate Procedure Risk: Low Anesthetic Plan Anesthetic Plan: MAC: Disposition: Standard PACU
[2024-02-05] VITALS (8 sets, daily range): BP systolic 92–115; BP diastolic 48–84; PULSE 66–90; RESP 16–18; TEMP 36.5–37.4; O2SAT 96–99; BMI 22.8
--- NOTE | ~2024-02-05 | FL_ITS ---
EXAMINATION: XR FLUOROSCOPY WITH IMAGES CLINICAL INFORMATION: T11 (possible T10 and L4) kyphoplasty. COMPARISON: Portions of the MR spine dated 01/10/2024. TECHNIQUE: Fluoroscopy Supervised By: Dr. Boo Foster. Fluoroscopy Time: 1.0 minutes. Cumulative Dose: 14.2 mGy. DAP: 1.56 Gycm2. Images: 4. FINDINGS: The submitted images show kyphoplasty procedures performed upon 2 lower thoracic spine levels. FL/FL guidance in OR IMPRESSION: Intraoperative fluoroscopic guidance is provided during lower thoracic kyphoplasties. Please see the patient's Operative Report for full procedural details.
[2024-02-05] MEDS: Lactated Ringers 1,000 ML 100 ML IVCONT (12:06)
--- NOTE | 2024-02-05 13:35 | P.BOP_ITS ---
Brief Operative Note Date of Service: 02/05/24 Pre-op diagnosis: Osteoporotic compression fracture Post-op diagnosis: same Procedure: Kyphon Balloon Kyphoplasty with Insertion of HV-R Bone Cement, T10, T11 Vertebral Bodies Implants: None Surgeon: Boo Foster MD Anesthesia: MAC Was an Cutting Machine Tender Helper used for this Procedure?: No Estimated blood loss (mL): 40 Pathology: none sent Condition: stable Disposition: PACU
--- NOTE | 2024-02-05 13:35 | W.PM.OPN ---
Operative Note Operative Note Date of Service: 02/05/24 Narrative: Kyphon Balloon Kyphoplasty with Insertion of HV-R Bone Cement, T10, T11 Vertebral Bodies The patient was brought to the operating room and positioned prone on the table. The patient was sedated by the patient coordinator and antibiotic 2 g of cefazolin were given preoperatively. The back was prepped and draped. Two image intensifiers (C-arms) were brought into the AP and lateral positions and the T10, T11 pedicles were identified and marked with a skin marker. A transpedicular approach to the vertebral body was deemed appropriate. A spinal needle was advanced along the expected course of the introducer up to the pedicle and the tract was anesthetized with 0.25% ropivacaine with epinephrine. A stab incision was made 2.5 cm lateral to the pedicle with a 15 blade. A 10-gauge bevel introducer was advanced through the T11 pedicle to the junction of the pedicle and vertebral body on the left side first. Positioning was confirmed on the AP and lateral plane at regular intervals to ensure bevel position within the cortical boundaries of the pedicle until the body of the vertebra was accessed. Following satisfactory placement of the osteointroducer, the bevel tip was removed, leaving the cannula in place, positioned approximately 1 cm past the posterior vertebral body wall. Through the cannula, a drill was advanced into the vertebral body under fluoroscopic guidance toward the anterior cortex to create a channel, stopping approximately 3-5 mm posterior to the anterior cortical wall in the lateral view and approaching the ipsilateral edge of the spinous process in the AP view. The anterior cortex was probed with the guide pin to ensure no perforations in the anterior cortex. After completing the entry into the vertebral body, a 15 mm inflatable bone tamp was inserted through the cannula and advanced under fluoroscopic guidance into the vertebral body near the anterior cortex. The radiopaque marker bands on the bone tamp were identified using AP and lateral images and confirmed to be within the anterior 2/3rd of the body. . The above sequence of instrument placement was then repeated on the right side. Once both bone tamps were in position, they were inflated sequentially in increments of 0.25 to 0.5 cc of contrast, with careful attention being paid to the inflation pressures and balloon position. The inflation was monitored with AP and lateral imaging. The final balloon volume was 0.5 cc on the left and 0.5 cc on the right side. Maximum pressure applied on either side was approximately 300 psi. There was no breach of the lateral wall or anterior cortex of the vertebral body. A curette was then utilized to create a medializing channel within the vertebral body. Under fluoroscopic imaging, and the use of the bone void fillers, internal fixation was achieved through a low-pressure injection of appropriately cured KYPHON HV-R methylmethacrylate bone cement. The cavity was filled with a total volume of 1.5 cc on the left side and 1.5 cc on the right side. No vascular, disc or spinal extravasation of the cement was noted. Once the bone cement had hardened, the bevel tip was reinserted into each of the cannulas to clear it and they were were then removed. The same process for balloon placement was then repeated at the T10 level. Once both bone tamps were in position, they were inflated sequentially in increments of 0.25 to 0.5 cc of contrast, with careful attention being paid to the inflation pressures and balloon position. The inflation was monitored with AP and lateral imaging. The final balloon volume was 3 cc on the left and 3 cc on the right side. Maximum pressure applied on either side was approximately 300 psi. There was no breach of the lateral wall or anterior cortex of the vertebral body. A curette was then utilized to create a medializing channel within the vertebral body. Under fluoroscopic imaging, and the use of the bone void fillers, internal fixation was achieved through a low-pressure injection of appropriately cured KYPHON HV-R methylmethacrylate bone cement. The cavity was filled with a total volume of 3 cc on the left side and 3 cc on the right side. No vascular, disc or spinal extravasation of the cement was noted. Once the bone cement had hardened, the bevel tip was reinserted into each of the cannulas to clear it and they were were then removed. Post-procedure, the incisions were closed with 2 silk sutures. The patient was kept in the prone position for approximately 10 minutes post cement injection. He was then turned supine and brought to the PACU where he reported minimal back pain. He was able to move both his lower extremities at this time. He was subsequently discharged with postprocedure and follow-up instructions. Estimated blood loss was rougly 40 mL.
--- NOTE | 2024-02-05 13:35 | MHC.SHP ---
Pre-Procedural Eval Section A - 24 Hr Update-Section A only Date of Service: 02/05/24 The patient is an INPATIENT: No Changes since office visit: Yes Patient answered all questions The patient has been examined within 24 hours of the surgical procedure. The History & Physical has been completed within 30 days and I have reviewed it.: Yes Section B - Complete if H&P > 30 days Chief Complaint: Arthrodesis status Allergies: Allergies Allergy/AdvReac Type Severity Reaction Status Date / Time No Known Allergies Allergy Verified 01/28/24 08:12 Plan Diagnosis/Plan: Unchanged I have reviewed the history and physical and performed a pertinent physical examination on my patient. No changes have occurred unless specified. Time Spent With Patient Time: Total time managing care of this patient today ____ minutes.
[2024-02-05 14:29] LABS: MRSA Nasal PCR NEGATIVE (Negative); SA Nasal PCR NEGATIVE (Negative)
== END 2024-02-05 18:28 | disposition home or self-care (01) ==
PROVIDERS: Registered Nurse Emergency; PCP Internal Medicine; Visit Provider Internal Medicine
PROC: (CPT 22513; principal; 2024-02-05 14:00)
DX: M80.88XA Other osteoporosis with current pathological fracture, vertebra(e), initial encounter for fracture (principal); Z98.1 Arthrodesis status; K83.01 Primary sclerosing cholangitis; Z79.899 Other long term (current) drug therapy; Z98.890 Other specified postprocedural states
CPT/HCPCS: 22513; 22515; 87640; 87641; C1713; J0690; J2250; J2704; J2795; J3010; Q9967

== ENCOUNTER → 2024-02-05 11:25 | Outpatient (BNV) | payer OTHER, SELFPAY | PROVIDERS: PCP Internal Medicine; Visit Provider Internal Medicine | DX: M80.80XA Other osteoporosis with current pathological fracture, unspecified site, initial encounter for fracture (principal) | CPT/HCPCS: 22513; 22515 ==

== ENCOUNTER 2024-02-13 08:53 | Outpatient (AMB) | payer OTHER, SELFPAY ==
[2024-02-13 09:18] VITALS: BP 115/77; PULSE 88; RESP 14; O2SAT 98; BMI 22.8
--- NOTE | 2024-02-13 09:18 | A.OFFVIS_ITS ---
Intake Vital Signs 02/13/24 09:18 Height 5 ft 4 in Weight 133 lb BMI 22.8 BP 115/77 Blood Pressure Location Lt brachial Position Sitting Respiration 14 Pulse 88 Pulse Source Pulse Oximeter Pulse Oximetry (%) 98 Oxygen Delivery Method Room Air Intake Visit Reasons: S/p Kyphoplasty on 02/05/24 Allergies No Known Allergies Allergy (Verified 02/13/24 09:19) Medication List - Last Reconciled 02/13/24 by Nita Izaguirre LPN mesalamine (Lialda) 2.4 grams PO DAILY oxycodone 5 mg PO QID PRN ursodiol 250 mg PO QID HPI S/p Kyphoplasty on 02/05/24 HPI Details 39-year-old male who presents today to t he office for a status post kyphoplasty on 02/05/24. The patient reports 80% relief following the procedure. He denies any pain in his lower back. He has significant relief and is ready to resume his work with restrictions. He requested a work note to start his job. He has a scheduled a ppointment with his home and family living professor on 04/15/24. Past procedures 02/05/24: Kyphon Balloon Kyphoplasty wit h Insertion of HV-R Bone Cement, T10, T11 Vertebral Bodies: >80% relief. [facility] Medical History Ulcerative colitis Primary sclerosing cholangitis Surgical History History of hand surgery H/O right inguinal hernia repair H/O colonoscopy Social History Patient Tobacco Use Status: Never used Tobacco Review of Systems Const All systems reviewed & are unremarkable except as noted in HPI and below Physical Exam Vital Signs: Last Vital Signs Pulse 88 02/13/24 09:18 Resp 14 02/13/24 09:18 BP 115/77 02/13/24 09:18 Pulse Ox 98 02/13/24 09:18 Oxygen Delivery Method Room Air 02/13/24 09:18 BMI result Body Mass Index 22.8 General: Appears afebrile. Alert and oriented. Mood and affect appropriate. Follows and participates in conversation appropriately. Respiratory effort is unlabored. Able to transition from sit to stand unassisted. Ambulates with bilaterally normal heel strike and toe off. Well healed incisions/sutures removed. Results Reviewed Results Reviewed: No imaging is available for review. Assessment & Plan Assessment & Plan (1) Lumbar compression fracture: Code(s): S32.000A - Wedge compression fracture of unspecified lumbar vertebra, initial encounter for closed fracture (2) Osteoporosis: Code(s): M81.0 - Age-related osteoporosis without current pathological fracture Plan He is eager to return to work, so I filled out paperwork for him, clearing him to return to work with accommodations for lifting no more than 5 lbs. until he starts treatment for his osteoporosis. Further work restrictions are going to be evaluated by his home and family living professor when he sees them. I also educated him to avoid impact activities that could also result in nontraumatic fractures. The patient will follow up as needed. Scribed for Dr. Foster by Catrachito Medina, medical historian, on 02/13/2024. I, Dr. Foster, have personally reviewed and agree with the information entered by the scribe. Coding Level of Care Code Est Pt Level 3 (11535) Diagnoses Lumbar compression fracture S32.000A Osteoporosis M81.0
== END 2024-02-13 09:41 | disposition home or self-care (01) ==
PROVIDERS: PCP Internal Medicine; Visit Provider Internal Medicine
DX: S32.000A Wedge compression fracture of unspecified lumbar vertebra, initial encounter for closed fracture (principal); M81.0 Age-related osteoporosis without current pathological fracture
CPT/HCPCS: 99024

== ENCOUNTER → 2024-02-13 08:53 | Outpatient (BNVA) | payer OTHER, SELFPAY | PROVIDERS: PCP Internal Medicine; Visit Provider Internal Medicine | DX: S32.000D Wedge compression fracture of unspecified lumbar vertebra, subsequent encounter for fracture with routine healing (principal); M81.0 Age-related osteoporosis without current pathological fracture | CPT/HCPCS: 99212 ==

== ENCOUNTER 2024-03-04 10:57 | Outpatient (REF) | payer OTHER, SELFPAY ==
[2024-03-04 11:02] LABS: MANUAL DIFF FLAG NO
[2024-03-04 11:18] LABS: Basophils Absolute Auto 0.1 X10*3/uL (0.0-0.2); Basophils Percent Auto 1.4 % (0-2); Eosinophils Absolute Auto 0.4 X10*3/uL (0.0-0.4); Eosinophils Percent Auto 8.8 % (0-4); Hematocrit 42.4 % (42.0-52.0); Hemoglobin 14.3 g/dl (14.0-18.0); Imm Gran Abs Auto 0.01 X10*3/uL (0.00-0.03); Imm Gran Pct Auto 0.2 % (0.0-0.4); Lymphocytes Absolute Auto 1.2 X10*3/uL (1.2-4.9); Lymphocytes Percent Auto 24.1 % (20-40); Mean Corpuscular HGB Conc 33.7 g/dl (31.0-36.0); Mean Corpuscular Hemoglobin 31.2 pg (27.0-33.0); Mean Corpuscular Volume 92.6 fL (80.0-98.0); Mean Platelet Volume 10.7 fL (9.4-12.4); Monocytes Absolute Auto 0.6 X10*3/uL (0.1-1.2); Monocytes Percent Auto 12.4 % (2-11); Neutrophils Absolute Auto 2.6 x10*3/uL (2.0-8.3); Neutrophils Percent Auto 53.1 % (45-73); Platelet Count 235 X10*3/uL (160-400); Red Blood Count 4.58 X10*6/uL (4.60-5.80); Red Cell Distribution Width 13.2 % (11.0-16.0)
[2024-03-04 11:33] LABS: Appearance Urine Clear; Color Urine Dark Yellow; Glucose Urine UA Negative (Negative); Leukocyte Esterase Urine Negative (Negative); Nitrite Urine Negative (Negative); Specific Gravity - Urine >= 1.030 (1.005-1.025); Urine Blood Negative (Negative); Urine Ketones Negative (Negative); Urine Protein Negative (Neg-Trace)
[2024-03-04 11:37] LABS: Bacteria Urine None Seen (None Seen); Hyaline Casts Urine 0-2 /LPF (0-2); RBC Urine 0-2 /HPF (0-2); Squamous Epithelial Cell Urine 0-2 /HPF (0-2); WBC Urine 0-5 /HPF (0-5)
[2024-03-04 12:08] LABS: Alanine Aminotransferase 125 U/L (0-40); Albumin Level 4.2 g/dL (3.5-5.0); Alkaline Phosphatase 351 U/L (39-117); Anion Gap 13 (12-20); Aspartate Amino Transferase 90 U/L (5-37); Blood Urea Nitrogen 15 mg/dL (9-16); Calcium 9.6 mg/dL (8.4-10.2); Carbon Dioxide 26 mmol/L (22-29); Chloride 103 mmol/L (96-108); Cholesterol 130 mg/dL (<200); Estimated Glomerular Filt Rate > 60; Glucose Fasting 84 mg/dL (60-99); HDL Cholesterol 35 mg/dL (>40); LDL Cholesterol Calculated 78 mg/dL (<100); Sodium 138 mmol/L (135-145); Total Protein 7.7 g/dL (6.5-8.0); Triglycerides 85 mg/dL (<150)
== END 2024-03-04 10:58 | disposition home or self-care (01) ==
LOC: HO.LNP 10:57
PROVIDERS: Visit Provider Internal Medicine
DX: Z00.00 Encounter for general adult medical examination without abnormal findings (principal)
CPT/HCPCS: 80053; 80061; 81001; 85025

== ENCOUNTER 2024-03-11 15:27 | Outpatient (REF) | payer OTHER, SELFPAY ==
[2024-03-11 17:05] LABS: PSA,Total (Free>4and<10) 0.99 ng/mL (0.00-4.00)
== END 2024-03-11 15:28 | disposition home or self-care (01) ==
LOC: HO.LNP 15:27
PROVIDERS: Visit Provider Internal Medicine
DX: R97.20 Elevated prostate specific antigen [PSA] (principal)
CPT/HCPCS: 84153

== ENCOUNTER 2024-03-28 08:25 | Inpatient (IN) | payer OTHER, SELFPAY ==
[2024-03-28] VITALS (10 sets, daily range): BP systolic 111–133; BP diastolic 76–93; PULSE 99–127; RESP 18–31; TEMP 36.1–37.1; O2SAT 94–98; BMI 22.8
--- NOTE | 2024-03-28 | EEG_ITS ---
FINDINGS: Waking background activity consists of a low to moderate voltage 9 to 10 hertz, posterior alpha frequency that is seen symmetrically and attenuates well with eye opening, while low voltage fast frequencies predominant anteriorly. Photic stimulation is without activation. Hyperventilation was omitted. No focal, lateralizing, or paroxysmal discharges are seen. IMPRESSION: This waking EEG is within normal limits. MD [place] [employer] / [phone]
--- NOTE | ~2024-03-28 | XR_ITS ---
EXAMINATION: XR chest 1V CLINICAL INFORMATION: Reason for Exam AMS COMPARISON: No prior chest x-ray available TECHNIQUE: Single portable frontal view. Tubes and lines: None Lungs and pleura: Diminished lung volume, Diffuse increased interstitial lung marking and peribronchial cuffing might be a small airway disease such as bronchiolitis or interstitial pneumonitis, versus interstitial lung disease versus interstitial edema. No dense focal consolidation pneumonia. Heart and mediastinum: Heart and mediastinum are widened exaggerated by AP technique.. Bones/soft tissue: Skeletal structures included are normal for patient's age. XR/XR chest 1V IMPRESSION: 1. Diminished lung volume. 2. Diffuse increased interstitial lung marking and peribronchial cuffing might be a small airway disease such as bronchiolitis or interstitial pneumonitis, versus interstitial lung disease versus interstitial edema. No dense focal consolidation pneumonia.
--- NOTE | ~2024-03-28 | CT_ITS ---
EXAMINATION: CT abdomen pelvis w IV con, CT angio chest PE protocol CLINICAL INFORMATION: Reason for Exam abdominal distension, ? Obstruction COMPARISON: No pertinent prior studies are available for comparison. TECHNIQUE: Prior to contrast administration, noncontrast localization images were obtained. Subsequently, multidetector volumetric imaging was performed from the thoracic inlet to below the pubic symphysis following the administration of 80 mL Omnipaque 350 intravenous contrast. No contrast reaction reported Sagittal, coronal, and MIP oblique sagittal reformatted images were obtained on the CT workstation, uploaded to PACS, and reviewed. This CT examination was performed using dose optimization techniques as appropriate, variously including the following: * Automated exposure control * Adjustment of mA and/or kV according to patient size (this includes techniques or standardized protocols for targeted exams where dose is matched to indication/reason for exam; i.e. extremities or head) Use of iterative reconstruction technique Total exam dose-length product 654 mGy-cm FINDINGS: QUALITY OF STUDY/CONTRAST BOLUS: Satisfactory. PULMONARY ARTERIES: There are multiple pulmonary emboli seen through the main right and left pulmonary arteries with partial occlusion of the right lower lobe pulmonary artery with saddle embolus THORACIC AORTA: No aneurysm or dissection. LUNG: There are bilateral consolidations more prominent in the dependent portion of the right and left lung. There is patchy, groundglass opacity airspace disease seen in the right lower lobe. Central airways are patent. PLEURA: There is pleural thickening but no pleural effusions seen. MEDIASTINUM: Normal heart size. No pericardial effusion. No hilar or mediastinal lymphadenopathy. No evidence of septal bowing or right heart strain. CHEST WALL/AXILLA: No axillary or internal mammary lymphadenopathy. ABDOMEN/PELVIS: LIVER, GALLBLADDER, BILIARY TREE: The liver is normal in size, shape, and attenuation. No focal hepatic lesion or biliary ductal dilatation is present. The gallbladder is unremarkable with no evidence of radiopaque gallstones, gallbladder wall thickening, or pericholecystic inflammatory changes. PANCREAS: Normal; no mass or surrounding fluid. SPLEEN: Normal size. No focal lesion. ADRENAL GLANDS: Normal; no mass. KIDNEYS AND URETERS: There are a few small bilateral renal cysts but no hydroureteronephrosis or masses. BLADDER: No focal mass or wall thickening seen. No bladder calculi. PELVIC VISCERA: Unremarkable. GASTROINTESTINAL TRACT: Loops of small bowel are diffusely dilated consistent with small bowel obstruction. There is a transition seen in the right lower quadrant, images 46-50 series 3. Loops of colon are distended by large amount of feces. The appendix is not identified. PERITONEAL SPACE: No free air or free fluid identified. ABDOMINAL WALL: There are postsurgical changes with mesh markers are seen in the lower abdomen. LYMPHOVASCULAR STRUCTURES: Lymph nodes: Normal. Vascular: The aorta is normal in caliber. OSSEOUS STRUCTURES: There is diffuse osteopenia with compression deformities of L5-L4 L3 and status post kyphoplasty of T11 and T10 vertebral bodies. There is compression deformity of T8 and 27. CT/CT angio chest PE protocol IMPRESSION: 1. Extensive bilateral pulmonary emboli with saddle embolus in the right and left main and lower lobe pulmonary artery. 2. Bilateral airspace disease. 3. Small bowel obstruction with transition in the right lower quadrant. 4. Constipation. 5. Multiple compression deformities in thoracic and lumbar spine VTE: positive.
--- NOTE | ~2024-03-28 | CT_ITS ---
EXAMINATION: CT THORACIC SPINE WITH CONTRAST CT LUMBAR SPINE WITH CONTRAST CLINICAL INFORMATION: Recent surgery, altered mental status. COMPARISON: Plain films of the lumbar spine earlier. MRI scan of the lumbar and thoracic spines 01/10/2024. CT scan of the thoracic spine [facility] 12/27/2023. 03/28/2024 TECHNIQUE: Thoracic spine, which was demonstrated on prior imaging. Overall, bone mineralization is markedly decreased, consistent with osteopenia/osteoporosis. Postcontrast axial CT scans of the thoracic and lumbar spine were obtained following the intravenous administration of 85 mL of Omnipaque 350. Coronal and sagittal reformatted images were generated at the technologist workstation. This CT examination was performed using dose optimization techniques as appropriate, variously including the following: *Automated exposure control *Adjustment of mA and/or kV according to patient size (this includes techniques or standardized protocols for targeted exams where dose is matched to indication/reason for exam; i.e. extremities or head) *Use of iterative reconstruction technique DLP: 1511 mGy-cm. FINDINGS: CT THORACIC SPINE: VERTEBRAL BODIES AND PARASPINAL STRUCTURES: There is hyperkyphosis in the lower thoracic spine at the level of T10-T11, demonstrated on prior imaging. There are now sequelae of kyphoplasties in the bodies of T10 and T11, demonstrated on the concurrent plain films of the lumbar spine. There is loss of vertebral body height of T7 and T8 on the current study, not demonstrated on the prior MRI scan. There is invagination of disc into the superior endplates at multiple levels in the upper thoracic spine. Bone mineralization is diffusely decreased consistent with osteopenia or osteoporosis. There is good parenchymal enhancement of the bilateral kidneys. There is bibasilar atelectasis, more extensive posteriorly on the left. SPINAL LEVELS: C7-T1 through T5-T6: Posterior vertebral body and disc contours are normal in is no central stenosis or cord compression. The neural foramina appear patent. T6-T7: There is slight posterior protrusion of the superior body of T7 into the spinal canal, but there is no central stenosis and the neural foramina are patent bilaterally. T7-T8: There is posterior protrusion of the superior body of T8 into the spinal canal without significant stenosis. The neural foramina are patent bilaterally. T10-T11: As described above there are kyphoplasties at these levels. There is posterior protrusion of the superior body of T11 into the spinal canal with approximately 20% central stenosis. The neural foramina appear patent. CT LUMBAR SPINE: FINDINGS: VERTEBRAL BODIES AND PARASPINAL STRUCTURES: There is overall anatomic alignment of the vertebral bodies. There are compression fractures of the bodies of L2, L4 and L5. There has been interval worsening of the compression fracture of the superior body of L4, with invagination of disc into the superior endplate. There are superior compression fractures of the bodies of L2 and L5 which are new compared to the prior MRI scan. Intervertebral disc heights are maintained. Bone mineralization is diffusely decreased consistent with osteopenia or osteoporosis. There is a 1.3 cm left renal cyst which does not need further imaging evaluation. There is mild free fluid in the pelvis. There are moderately prominent mesenteric vessels. SPINAL LEVELS: T12-L1: The facet joints appear normal bilaterally. Disc contour is normal. There is no central stenosis or foraminal narrowing. L1-L2: The facet joints appear normal. There is posterior protrusion of the superior body of L2 and the spinal canal with approximately 15-20% central stenosis. The neural foramina are patent bilaterally. L2-L3: The facet joints appear normal bilaterally. Disc contour is normal. There is no central stenosis or foraminal narrowing. L3-L4: There is minimal facet arthropathy bilaterally. There is posterior protrusion of the superior body of L4 into the spinal canal with approximately 30-40% central stenosis, not significantly changed compared to prior imaging. The neural foramina are patent bilaterally. L4-L5: The facet joints appear normal bilaterally. There is mild posterior protrusion of the superior body of L5 into the the spinal canal with minimal central stenosis. The neural foramina are patent. L5-S1: The facet joints appear normal bilaterally. Disc contour is normal. There is no central stenosis or foraminal narrowing. CT/CT lumbar spine w IV con IMPRESSION: Thoracic Spine: 1. There are now sequelae of kyphoplasties in the bodies of T10 and T11. There is loss of vertebral body height of T7 and T8 on the current study, not demonstrated on the prior MRI scan. Bone mineralization is diffusely decreased consistent with osteopenia or osteoporosis. 2. There is hyperkyphosis at the level of T10-T11. There are no acute subluxations. The paravertebral structures are unremarkable. Lumbar Spine: 1. There are compression fractures of the bodies of L2, L4 and L5. The fractures of L2 and L5 are new compared to the prior MRI scan, and there has been interval worsening of the compression fracture of L4. 2. There are posterior protrusions of the superior bodies of L2, L4 and L5 into the spinal canal with central stenosis at these levels as described above. There is posterior protrusion of the superior body of L4 into the spinal canal at L3-L4 with approximately 30-40% central stenosis. The neural foramina appear patent. 3. There is diffuse osteopenia or osteoporosis. 4. There is mild free fluid in the pelvis.
--- NOTE | ~2024-03-28 | US_ITS ---
EXAMINATION: US ABDOMEN LIMITED CLINICAL INFORMATION: Elevated LFT. COMPARISON: Prior study November 2022 TECHNIQUE: Real-time imaging of the right upper quadrant abdominal viscera. FINDINGS: PANCREAS: The visualized portion of the pancreas head and body are normal, portion of the pancreatic body and tail, not visualized are obscured by bowel gas. 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 The liver is normal in size. The liver contour is normal. Parenchymal echogenicity is normal. No focal hepatic lesion. There is no intrahepatic biliary duct dilatation seen. GALLBLADDER: Markedly distended The gallbladder is physiologically distended without evidence of stones, sludge, polyps, wall thickening or pericholecystic fluid. COMMON BILE DUCT: Normal in caliber measuring 0.3 cm in diameter. RIGHT KIDNEY: Normal. No hydronephrosis. No renal calculi or focal parenchymal lesions. The kidney measures 10.4 cm in maximum dimension. FREE FLUID: None. US/US abdomen limited IMPRESSION: 1. 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 2. No ultrasound evidence of focal liver lesion.
--- NOTE | ~2024-03-28 | XR_ITS ---
EXAMINATION: XR CHEST CLINICAL INFORMATION: Hypoxia COMPARISON: 03/30/2024 TECHNIQUE: Frontal view of the chest was obtained. FINDINGS: There is low lung volume bilaterally unchanged since previous study with by basilar atelectasis and left lower lobe airspace disease with air bronchogram. Cardiomediastinal silhouette is unremarkable XR/XR chest 1V IMPRESSION: Bibasilar airspace disease. Low lung volume.
--- NOTE | ~2024-03-28 | CT_ITS ---
EXAMINATION: CT ABDOMEN AND PELVIS WITH CONTRAST CLINICAL INFORMATION: Severe abdominal distention COMPARISON: Ultrasound abdomen dated 03/28/2024 TECHNIQUE: Multidetector volumetric images were obtained from the superior aspect of the liver through the pubic symphysis following administration 85 mL of Omnipaque 350 intravenous contrast. Sagittal and coronal reformatted images were obtained on the technologist's workstation. Oral contrast: No This CT examination was performed using dose optimization techniques as appropriate, variously including the following: *Automated exposure control *Adjustment of mA and/or kV according to patient size (this includes techniques or standardized protocols for targeted exams where dose is matched to indication/reason for exam; i.e. extremities or head) *Use of iterative reconstruction technique DLP: 512 mGy-cm FINDINGS: LUNG BASES: Bibasilar infiltrates or consolidations and small bibasilar effusions. LIVER, GALLBLADDER, AND BILIARY TREE: Slight periportal edema. There is a history of sclerosing cholangitis in this patient. No suspicious mass or intrahepatic biliary dilatation. The gallbladder is unremarkable with no evidence of radiopaque gallstones, gallbladder wall thickening, or obvious pericholecystic inflammatory changes. PANCREAS: Unremarkable. SPLEEN: Unremarkable. ADRENAL GLANDS: Unremarkable. KIDNEYS AND URETERS: No suspicious mass or calcification, hydronephrosis, or perinephric collection. There is a small cyst upper right kidney at 6 mm, and a small cyst medial inferior left kidney at 9 mm. No further workup needed. BLADDER: Unremarkable. GASTROINTESTINAL TRACT: Abnormal. There is extensive distention of the small bowel loops which are fluid-filled. There is a large volume of stool within the colon. The colon is diffusely distended as well. Is the patient on pain medication? There may be trace fluid surrounding the cecum. I do not see any drainable collections or obstructing masses or causes of an acute obstruction other than the large volume of stool within the rectum. The appendix is not identified. ABDOMINAL WALL: No significant ventral hernia noted. There are surgical sutures overlying the right inguinal region. No evidence for recurrent inguinal hernia although some bowel loops extending towards the left inguinal region. LYMPH NODES: Normal. VASCULAR: Unremarkable. PELVIC VISCERA: Unremarkable. OSSEOUS STRUCTURES: There are moderate compression deformities observed, L2, L4, L5 and post vertebral plasty changes observed T10, and T11. CT/CT abdomen pelvis w IV con IMPRESSION: Severe diffuse enteric distention without a focal area of obstruction. Prominence to the portal triads possibly reflective of edema was noted on a recent ultrasound as well. Fleischner guidelines were followed.
--- NOTE | ~2024-03-28 | CT_ITS ---
EXAMINATION: CT HEAD WITHOUT CONTRAST CLINICAL INFORMATION: Altered mental status COMPARISON: None TECHNIQUE: Contiguous axial imaging was performed from the skull base to vertex without intravenous administration of contrast. This CT examination was performed using dose optimization techniques as appropriate, variously including the following: *Automated exposure control *Adjustment of mA and/or kV according to patient size (this includes techniques or standardized protocols for targeted exams where dose is matched to indication/reason for exam; i.e. extremities or head) *Use of iterative reconstruction technique DLP: 866.7 mGy-cm FINDINGS: There is no evidence of acute intracranial hemorrhage or territorial infarction. No abnormal mass effect or midline shift is seen. Yeager to white matter differentiation is well preserved. No extra-axial fluid collections are identified. The ventricles are normal in size. There is no abnormal attenuation within the brain parenchyma. The osseous structures and soft tissues are normal. Mucoperiosteal thickening of the bilateral maxillary and right frontal sinus. The mastoid air cells and visualized portions of the paranasal sinuses are well aerated. CT/CT cervical spine wo IV con IMPRESSION: No acute intracranial pathology. EXAMINATION: Noncontrast CT scan of the cervical spine. INDICATION: Altered mental status COMPARISON: None. TECHNIQUE: Helical, multidetector axial images were obtained from the occiput to the upper thorax. Coronal and sagittal reformats of the cervical spine were provided for interpretation. DLP: 349.7 mGy-cm FINDINGS: No acute fractures or dislocations of the cervical spine are seen. Anatomic alignment and positioning of the vertebral bodies and posterior elements is noted. The atlantoaxial joint and craniovertebral articulations are normal without evidence of subluxation. There is no prevertebral soft tissue swelling. The thyroid gland and visualized portions of the lung apices and mediastinum are unremarkable. IMPRESSION: No acute visible fracture or dislocation.
--- NOTE | ~2024-03-28 | XR_ITS ---
EXAMINATION: XR chest 1V CLINICAL INFORMATION: Reason for Exam hypoxia COMPARISON: 03/28/2024 TECHNIQUE: Single portable frontal view. Tubes and lines: None Lungs and pleura: Diminished lung volume, pulmonary vascular congestion and diffuse increased interstitial opacification possibly interstitial edema. Blunting of costophrenic angle suggesting small subpulmonic pleural effusions. Heart and mediastinum: Cardiac silhouette is enlarged cardiomegaly unchanged.. Bones/soft tissue: Dilated bowel loops under the diaphragm, this has been described on the CT abdomen same day. XR/XR chest 1V IMPRESSION: 1. Cardiomegaly, pulmonary vascular congestion, diffuse increased interstitial opacification possibly mild interstitial edema. 2. Small subpulmonic pleural effusions.
--- NOTE | ~2024-03-28 | US_ITS ---
EXAMINATION: US VENOUS ULTRASOUND WITH DOPPLER LOWER EXTREMITY, BILATERAL CLINICAL INFORMATION: Pulmonary embolism. COMPARISON: CTA chest dated 04/01/2024. TECHNIQUE: Ultrasound of the deep veins is performed from the hip to the calf with compression sonography and color and pulse Doppler assessment. Spectral analysis with color-flow imaging is performed. FINDINGS: RIGHT: There is normal venous compression and respiratory variation and augmented flow. The visualized common femoral vein, superficial femoral vein, profunda femoral vein, popliteal vein, and the trifurcation region shows no evidence of deep venous thrombosis. There is no significant popliteal fossa cyst. LEFT: Occlusive thrombus extends from the mid aspect of the left femoral vein to the proximal aspect of the posterior tibial vein, inclusive of the popliteal vein. Remaining left lower extremity venous structures are normal in appearance. There is no significant popliteal fossa cyst. US/US venous duplex LE BI IMPRESSION: No DVT demonstrated in the right lower extremity. Occlusive thrombus extends from the mid aspect of the left femoral vein to the proximal aspect of the posterior tibial vein, inclusive of the popliteal vein. This critical result was discussed with Dr Rhodes at 5:34 PM on 04/01/2024 and it was ascertained that the content and urgency of the report was understood at the time of direct communication.
--- NOTE | ~2024-03-28 | XR_ITS ---
EXAMINATION: XR LUMBOSACRAL SPINE CLINICAL INFORMATION: Low back pain COMPARISON: Mild lumbar spine from 01/10/2024 TECHNIQUE: Three views of the lumbosacral spine. FINDINGS: 5 nonrib-bearing lumbar-type vertebral bodies. Status post vertebral augmentation of T10 and T11. Loss of height of the superior endplate of L5, chronicity indeterminate. Redemonstrated loss of height of superior endplate of L4. Vertebral body heights and disc spaces are otherwise maintained. Posterior elements are intact. Paraspinal soft tissues are unremarkable. Fecal loading of the colon. Hernia mesh right lower abdomen. XR/XR lumbar spine 2-3V IMPRESSION: 1. Status post vertebral augmentation of T10 and T11. 2. Loss of height of the superior endplate of L5, chronicity indeterminate. Correlation with physical exam. 3. Redemonstrated loss of height of superior endplate of L4.
--- NOTE | ~2024-03-28 | XR_ITS ---
EXAMINATION: XR ABDOMEN KUB CLINICAL INDICATION: Follow-up obstruction versus ileus COMPARISON: Assistant Production Editor film 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 FINDINGS: Continued bowel dilatation. This is not felt to be significantly changed from previous. There is felt to be stool in the rectosigmoid. There is felt to be air outlining both small and large bowel. Bilateral basilar lung opacities are also noted. XR/XR KUB IMPRESSION: Continued bowel distention. Not significantly changed from previous. Differential to include ileus versus obstruction.
--- NOTE | ~2024-03-28 | XR_ITS ---
EXAMINATION: XR ABDOMEN KUB CLINICAL INDICATION: Abdominal distention COMPARISON: Abdomen radiograph March 31, 2024. The scan abdomen pelvis April 01, 2024 TECHNIQUE: AP view of the abdomen. FINDINGS: There is still a large volume of gas in the colon but the volume of gas has decreased since prior CAT scan April 01, 2024. Bowel pattern is nonobstructive. No significant formed stool now evident in the abdomen. Surgical coils right lung base XR/XR KUB IMPRESSION: Nonobstructive bowel pattern. Decreased volume of gas in the colon since prior CAT scan April 01, 2024.
[2024-03-28] MEDS: Midazolam HCl/PF 2 MG/2 ML VIAL IVPUSH ×2 (10:25→10:35)
--- NOTE | 2024-03-28 10:25 | ECG_ITS ---
Test Reason : SEIZURE Blood Pressure : / mmHG Vent. Rate : 124 BPM Atrial Rate : 124 BPM P-R Int : 148 ms QRS Dur : 092 ms QT Int : 330 ms P-R-T Axes : 063 005 035 degrees QTc Int : 474 ms Sinus tachycardia Possible Left atrial enlargement Borderline ECG No previous ECGs available Referred By: Nita Garza Electronically Signed By:Ramon Keller
--- NOTE | 2024-03-28 10:31 | ED_ITS ---
HPI - General Adult General Chief complaint: Back Pain/Injury Stated complaint: Back pain - surgery last month Time Seen by Provider: 03/28/24 10:25 Source: family (patient's mother) Mode of arrival: ambulatory Limitations: altered mental status History of Present Illness ED Provider: Nita Garza PA-C HPI narrative: Patient is a 39 year old assigned male at with a history of sclerosing cholangitis, ulcerative colitis, and a kyphoplasty on 02/05/2024 presenting to the emergency department today initially complaining of low back pain since yesterday and an episode of vomiting this morning. While patient was in the waiting room, he began to seize. Patient's mother states that the patient has had 1 other seizure ever, when he was a child, and it was a febrile seizure. Related Data Home Medications ?Medication ?Instructions ?Recorded ?Confirmed mesalamine 1.2 gram tablet,delayed 2.4 g PO DAILY 12/09/22 02/13/24 release (Lialda) ursodiol 250 mg tablet 250 mg PO QID 12/09/22 02/13/24 oxycodone 5 mg tablet 5 mg PO QID PRN Pain 01/07/24 02/13/24 Allergies Allergy/AdvReac Type Severity Reaction Status Date / Time No Known Allergies Allergy Verified 03/28/24 09:09 Review of Systems 2 Review of Systems: Yes Unobtainable due to mental status Neurologic: Reports seizure-like activity PMFSH Past Medical History Attestation statement: The following information was validated with the patient. (all information validated with the patient's mother) Source: old records reviewed, obtained from family (patient's mother provided additional history and confirmed the history provided by the patient.) and nursing notes reviewed Medical History (Updated 03/28/24 @ 15:16 by ROSA Diggs) Ulcerative colitis Primary sclerosing cholangitis Surgical History History of hand surgery H/O right inguinal hernia repair H/O colonoscopy Social History Social History Patient Tobacco Use Status: Never used Tobacco Smoked in Last 30 Days: No Use of substances other than those prescribed or required for medical reasons: No Advance Directives: No Advance Directives Information Provided: No Physical Exam ED Vital Signs: Vital Signs - 24 hr 03/28/24 09:06 03/28/24 10:36 03/28/24 11:13 Temperature 97.8 F 98.1 F Pulse Rate 99 127 H 116 H Respiratory Rate 18 22 H 31 H Blood Pressure 116/86 133/84 119/87 Pulse Oximetry 97 94 96 Oxygen Delivery Method Room Air Nasal Cannula Room Air Oxygen Flow Rate 2 03/28/24 11:44 03/28/24 12:36 03/28/24 12:44 Temperature Pulse Rate 106 H 118 H Respiratory Rate 22 H 21 H 22 H Blood Pressure 115/85 121/93 H Pulse Oximetry 98 97 Oxygen Delivery Method Nasal Cannula Nasal Cannula Oxygen Flow Rate 2 2 03/28/24 14:00 Temperature 98.7 F Pulse Rate Respiratory Rate Blood Pressure Pulse Oximetry Oxygen Delivery Method Oxygen Flow Rate BMI result Body Mass Index 22.8 Const Limitations: altered mental status HENMT Head: Yes normal to inspection Resp Effort & Inspection: decreased respiratory effort Cardio Rate: tachycardic Neuro Other: seizing Medications Administered Generic Name Dose Route Start Last Admin Trade Name Freq PRN Reason Stop Dose Admin Sodium Chloride 1,000 mls @ 999 mls/hr 03/28/24 14:45 03/28/24 14:54 Ns IV 03/28/24 15:45 999 mls/hr .Q1H1M WAN Administration Lactulose 30 gm 03/28/24 15:00 03/28/24 14:53 Lactulose 20 Gm/30 Ml Solution PO 30 gm TID WAN Administration Discontinued Medications Generic Name Dose Route Start Last Admin Trade Name Freq PRN Reason Stop Dose Admin Erythromycin 250 mg 03/28/24 11:50 03/28/24 13:30 Erythromycin Base 250 Mg Tablet PO 03/28/24 11:51 250 mg ONCE ONE Administration Levetiracetam 1,000 mg in 100 mls @ 400 mls/hr 03/28/24 10:31 03/28/24 10:55 Keppra IV 03/28/24 10:45 Infused ONCE ONE Infusion Ceftriaxone Sodium 2 gm/ 50 mls @ 100 mls/hr 03/28/24 10:33 03/28/24 12:24 Sodium Chloride IV 03/28/24 11:02 Infused ONCE ONE Infusion Sodium Chloride 1,000 mls @ 999 mls/hr 03/28/24 12:45 03/28/24 14:38 Ns IV 03/28/24 13:45 Infused .Q1H1M WAN Infusion Iohexol 100 ml 03/28/24 11:55 03/28/24 11:55 Iohexol 350 Mg/Ml 100 Ml Infus..Btl IV 03/28/24 11:56 85 ml ONCE ONE Administration Lactulose 20 gm 03/28/24 12:16 03/28/24 12:34 Lactulose 20 Gm/30 Ml Solution PO 03/28/24 12:17 20 gm ONCE ONE Administration Midazolam HCl 2 mg 03/28/24 10:25 03/28/24 10:25 Midazolam Hcl/Pf 2 Mg/2 Ml Vial IVPUSH 03/28/24 10:26 2 mg ONCE ONE Administration Midazolam HCl 2 mg 03/28/24 11:10 03/28/24 10:35 Midazolam Hcl/Pf 2 Mg/2 Ml Vial IVPUSH 03/28/24 11:11 2 mg ONCE ONE Administration Morphine Sulfate 4 mg 03/28/24 12:39 03/28/24 12:44 Morphine Sulfate 4 Mg/Ml Cartridge IVPUSH 03/28/24 12:40 4 mg ONCE ONE Administration Protocol Rifaximin 550 mg 03/28/24 11:48 03/28/24 13:30 Rifaximin 550 Mg Tablet PO 03/28/24 11:49 550 mg ONCE ONE Administration Medical Decision Making Medical Decision Making [facility] Narrative: Patient is a 39 year old assigned male at with a history of sclerosing cholangitis, ulcerative colitis, and a kyphoplasty on 02/05/2024 presenting to the emergency department today initially with low back pain, nausea, and vomiting and then seized while waiting. Patient's initial physical exam showed an actively seizing individual. Patient was given 4mg of Versed which stopped the seizing effectively. Upon re-evaluation, patient is alert and oriented x3. Patient's blood work showed an elevated WBC count of 15.1 which I believe to be a stress reaction and not an infectious process. Patient's LFTs were elevated including a total bilirubin of 1.4, AST of 179, ALT of 228, and an alk phos of 630. Patient's ammonia was elevated to 175. Patient's initial lactic was 15.2 with a repeat of 1.1. Patient's urine showed no acute process. Patient's EKG was unremarkable. Patient's abdominal US showed a redemonstration of echogenic portal triads and a markedly distended gallbladder with no evidence of stones, sludge, polyps, wall thickening, or pericholecystic fluid. Patient's thoracic and lumbar CTs show evidence of NEW compression fractures at L2 and L5 with a worsening, known, L4 fracture. Additionally showed bulging discs at the L2, L4, and L5 levels as well as the kyphoplasty performed on T10 and T11. I spoke with the GI team who recommended PO Lactulose and Rifaximin. I spoke to the hospitalist team who agreed to admission. Patient's clinical presentation is not consistent with sepsis (@1445). I explained my physical exam findings as well as all test results to the patient. I answered all questions asked by the patient. Patient verbalized agreement and understanding with this treatment plan and admission. Differential Diagnosis Differential Diagnoses: The differential diagnosis associated with the presentation includes Encephalopathy Elevated ammonia AMS Seizure Cirrhosis Admission/Observation Consideration of admission/observation: Escalation of care including admission/observation considered Patient admitted. Consult Healthcare Provider Management of the patient was discussed with: Hospitalist (agreed to admission as noted in the MDM Rationale portion of this note.) and [employer] (spoke to the GI specialist as noted in the MDM Rationale portion of this note.) Lab Data [facility] Lab Attestation statement: I reviewed the patient's lab results. My interpretation of these results are in the MDM Rationale portion of this note. 03/28/24 10:30 03/28/24 10:30 Labs: Lab Results 03/28/24 03/28/24 03/28/24 Range/Units 10:25 10:29 10:30 WBC 15.1 H (4.8-10.8) X10*3/uL RBC 5.33 (4.60-5.80) X10*6/uL Hgb 16.5 (14.0-18.0) g/dl Hct 51.0 D (42.0-52.0) % MCV 95.7 (80.0-98.0) fL MCH 31.0 (27.0-33.0) pg MCHC 32.4 (31.0-36.0) g/dl RDW 13.1 (11.0-16.0) % Plt Count 278 (160-400) X10*3/uL MPV 10.6 (9.4-12.4) fL Immature Gran % (Auto) 2.4 H (0.0-0.4) % Neut % (Auto) 79.0 H (45-73) % Lymph % (Auto) 11.2 L (20-40) % [place] % (Auto) 5.4 (2-11) % Eos % (Auto) 1.3 (0-4) % Baso % (Auto) 0.7 (0-2) % Lymph # (Auto) 1.7 (1.2-4.9) X10*3/uL [place] # (Auto) 0.8 (0.1-1.2) X10*3/uL Eos # (Auto) 0.2 (0.0-0.4) X10*3/uL Baso # (Auto) 0.1 (0.0-0.2) X10*3/uL Abs Immat Gran (auto) 0.36 H (0.00-0.03) X10*3/uL Absolute Neuts (auto) 12.0 H (2.0-8.3) x10*3/uL Absolute Nucleated RBC 0.240 H (0.0-0.012) X10*3/uL Nucleated RBC % (auto) 1.6 H (0.0-0.2) /100WBC PT (11.1-13.3) SEC INR (0.9-1.1) APTT (26.0-36.8) SEC Hold Blue Top SEE NOTE VBG pH (7.32-7.43) VBG pCO2 mmHg VBG pO2 mmHg VBG HCO3 (22-26) mmol/L VBG O2 Saturation % VBG Base Excess mmol/L Sodium 146 H (135-145) mmol/L Potassium 3.3 (3.3-5.1) mmol/L Chloride 104 (96-108) mmol/L Carbon Dioxide 16 L (22-29) mmol/L Anion Gap 29 H (12-20) BUN 16 (9-16) mg/dL Creatinine 0.80 (0.5-1.4) mg/dL Estim Creat Clear Calc 105.8 Estimated GFR > 60 POC Glucose 121 H (60-115) mg/dL Random Glucose 117 H (60-115) mg/dL Lactic Acid 15.2 H* (0.5-2.0) mmol/L Lactic Acid F/U @ 2Hr (0.5-2.0) mmol/L Calcium 10.6 H D (8.4-10.2) mg/dL Magnesium 2.3 (1.6-2.6) mg/dL Total Bilirubin 1.4 H (0.0-1.0) mg/dL AST 179 H (5-37) U/L ALT 228 H (0-40) U/L Alkaline Phosphatase 630 H (39-117) U/L Ammonia 175 H (13-55) umol/L Total Protein 9.8 H (6.5-8.0) g/dL Albumin 5.4 H (3.5-5.0) g/dL Urine Color Urine Appearance Urine pH (5.0-9.0) Ur Specific [place] (1.005-1.025) Urine Protein (Neg-Trace) mg/dL Urine Glucose (UA) (Negative) mg/dL Urine Ketones (Negative) mg/dL Urine Blood (Negative) Urine Nitrite (Negative) Ur Leukocyte Esterase (Negative) Urine RBC (0-2) /HPF Urine WBC (0-5) /HPF Ur Squamous Epith Cells (0-2) /HPF Urine Bacteria (None Seen) Hyaline Casts (0-2) /LPF Urine Opiates Screen (Not Detect) Ur Buprenorphine Scrn (Not Detect) ng/mL Ur Oxycodone Screen (Not Detect) ng/mL Urine Methadone Screen (Not Detect) ng/mL Urine Fentanyl Screen (Not Detect) Ur Barbiturates Screen (Not Detect) Ur Phencyclidine Scrn (Not Detect) Ur Amphetamines Screen (Not Detect) U Benzodiazepines Scrn (Not Detect) Urine Cocaine Screen (Not Detect) U Marijuana (THC) Screen (Not Detect) Influenza Type A (PCR) NEGATIVE (Negative) Influenza Type B (PCR) NEGATIVE (Negative) RSV RNA Qual (PCR) NEGATIVE (Negative) SARS-CoV-2 RNA (RT-PCR) NEGATIVE (Negative) 03/28/24 03/28/24 03/28/24 Range/Units 10:32 11:31 14:27 WBC (4.8-10.8) X10*3/uL RBC (4.60-5.80) X10*6/uL Hgb (14.0-18.0) g/dl Hct (42.0-52.0) % MCV (80.0-98.0) fL MCH (27.0-33.0) pg MCHC (31.0-36.0) g/dl RDW (11.0-16.0) % Plt Count (160-400) X10*3/uL MPV (9.4-12.4) fL Immature Gran % (Auto) (0.0-0.4) % Neut % (Auto) (45-73) % Lymph % (Auto) (20-40) % [place] % (Auto) (2-11) % Eos % (Auto) (0-4) % Baso % (Auto) (0-2) % Lymph # (Auto) (1.2-4.9) X10*3/uL [place] # (Auto) (0.1-1.2) X10*3/uL Eos # (Auto) (0.0-0.4) X10*3/uL Baso # (Auto) (0.0-0.2) X10*3/uL Abs Immat Gran (auto) (0.00-0.03) X10*3/uL Absolute Neuts (auto) (2.0-8.3) x10*3/uL Absolute Nucleated RBC (0.0-0.012) X10*3/uL Nucleated RBC % (auto) (0.0-0.2) /100WBC PT 12.1 (11.1-13.3) SEC INR 1.0 (0.9-1.1) APTT 34.0 (26.0-36.8) SEC Hold Blue Top VBG pH 6.96 L* (7.32-7.43) VBG pCO2 64 mmHg VBG pO2 60 mmHg VBG HCO3 14 L (22-26) mmol/L VBG O2 Saturation 72.0 % VBG Base Excess -18.2 mmol/L Sodium (135-145) mmol/L Potassium (3.3-5.1) mmol/L Chloride (96-108) mmol/L Carbon Dioxide (22-29) mmol/L Anion Gap (12-20) BUN (9-16) mg/dL Creatinine (0.5-1.4) mg/dL Estim Creat Clear Calc Estimated GFR POC Glucose (60-115) mg/dL Random Glucose (60-115) mg/dL Lactic Acid (0.5-2.0) mmol/L Lactic Acid F/U @ 2Hr 1.1 (0.5-2.0) mmol/L Calcium (8.4-10.2) mg/dL Magnesium (1.6-2.6) mg/dL Total Bilirubin (0.0-1.0) mg/dL AST (5-37) U/L ALT (0-40) U/L Alkaline Phosphatase (39-117) U/L Ammonia (13-55) umol/L Total Protein (6.5-8.0) g/dL Albumin (3.5-5.0) g/dL Urine Color Dark Yellow Urine Appearance Clear Urine pH 6.0 (5.0-9.0) Ur Specific [place] >= 1.030 H (1.005-1.025) Urine Protein 30 (1+) H (Neg-Trace) mg/dL Urine Glucose (UA) Negative (Negative) mg/dL Urine Ketones Negative (Negative) mg/dL Urine Blood Negative (Negative) Urine Nitrite Negative (Negative) Ur Leukocyte Esterase Negative (Negative) Urine RBC 0-2 (0-2) /HPF Urine WBC 6-10 H (0-5) /HPF Ur Squamous Epith Cells 0-2 (0-2) /HPF Urine Bacteria None Seen (None Seen) Hyaline Casts 3-5 (0-2) /LPF Urine Opiates Screen Not Detected (Not Detect) Ur Buprenorphine Scrn Not Detected (Not Detect) ng/mL Ur Oxycodone Screen Not Detected (Not Detect) ng/mL Urine Methadone Screen Not Detected (Not Detect) ng/mL Urine Fentanyl Screen Not Detected (Not Detect) Ur Barbiturates Screen Not Detected (Not Detect) Ur Phencyclidine Scrn Not Detected (Not Detect) Ur Amphetamines Screen Not Detected (Not Detect) U Benzodiazepines Scrn POSITIVE H (Not Detect) Urine Cocaine Screen Not Detected (Not Detect) U Marijuana (THC) Screen Not Detected (Not Detect) Influenza Type A (PCR) (Negative) Influenza Type B (PCR) (Negative) RSV RNA Qual (PCR) (Negative) SARS-CoV-2 RNA (RT-PCR) (Negative) Independent Interpretation I performed an independent interpretation of an: EKG, Plain X-Ray, Ultrasound and CT Scan Interpretation: My interpretation is in agreement with the radiologist's impression of these imaging studies. - EXAMINATION: XR LUMBOSACRAL SPINE CLINICAL INFORMATION: Low back pain COMPARISON: Mild lumbar spine from 01/10/2024 TECHNIQUE: Three views of the lumbosacral spine. FINDINGS: 5 nonrib-bearing lumbar-type vertebral bodies. Status post vertebral augmentation of T10 and T11. Loss of height of the superior endplate of L5, chronicity indeterminate. Redemonstrated loss of height of superior endplate of L4. Vertebral body heights and disc spaces are otherwise maintained. Posterior elements are intact. Paraspinal soft tissues are unremarkable. Fecal loading of the colon. Hernia mesh right lower abdomen. XR/XR lumbar spine 2-3V IMPRESSION: 1. Status post vertebral augmentation of T10 and T11. 2. Loss of height of the superior endplate of L5, chronicity indeterminate. Correlation with physical exam. 3. Redemonstrated loss of height of superior endplate of L4. Dictated By: Ramon Brewer MD Signed By: Electronically signed by Ramon Brewer MD 03/28/24 1019 - EXAMINATION: XR chest 1V CLINICAL INFORMATION: Reason for Exam AMS COMPARISON: No prior chest x-ray available TECHNIQUE: Single portable frontal view. Tubes and lines: None Lungs and pleura: Diminished lung volume, Diffuse increased interstitial lung marking and peribronchial cuffing might be a small airway disease such as bronchiolitis or interstitial pneumonitis, versus interstitial lung disease versus interstitial edema. No dense focal consolidation pneumonia. Heart and mediastinum: Heart and mediastinum are widened exaggerated by AP technique.. Bones/soft tissue: Skeletal structures included are normal for patient's age. XR/XR chest 1V IMPRESSION: 1. Diminished lung volume. 2. Diffuse increased interstitial lung marking and peribronchial cuffing might be a small airway disease such as bronchiolitis or interstitial pneumonitis, versus interstitial lung disease versus interstitial edema. No dense focal consolidation pneumonia. Dictated By: Rosana Ramirez MD Signed By: Electronically signed by Rosana Ramirez MD 03/28/24 1248 - EXAMINATION: CT HEAD WITHOUT CONTRAST CLINICAL INFORMATION: Altered mental status COMPARISON: None TECHNIQUE: Contiguous axial imaging was performed from the skull base to vertex without intravenous administration of contrast. This CT examination was performed using dose optimization techniques as appropriate, variously including the following: *Automated exposure control *Adjustment of mA and/or kV according to patient size (this includes techniques or standardized protocols for targeted exams where dose is matched to indication/reason for exam; i.e. extremities or head) *Use of iterative reconstruction technique DLP: 866.7 mGy-cm FINDINGS: There is no evidence of acute intracranial hemorrhage or territorial infarction. No abnormal mass effect or midline shift is seen. [place] to white matter differentiation is well preserved. No extra-axial fluid collections are identified. The ventricles are normal in size. There is no abnormal attenuation within the brain parenchyma. The osseous structures and soft tissues are normal. Mucoperiosteal thickening of the bilateral maxillary and right frontal sinus. The mastoid air cells and visualized portions of the paranasal sinuses are well aerated. CT/CT cervical spine wo IV con IMPRESSION: No acute intracranial pathology. EXAMINATION: Noncontrast CT scan of the cervical spine. INDICATION: Altered mental status COMPARISON: None. TECHNIQUE: Helical, multidetector axial images were obtained from the occiput to the upper thorax. Coronal and sagittal reformats of the cervical spine were provided for interpretation. DLP: 349.7 mGy-cm FINDINGS: No acute fractures or dislocations of the cervical spine are seen. Anatomic alignment and positioning of the vertebral bodies and posterior elements is noted. The atlantoaxial joint and craniovertebral articulations are normal without evidence of subluxation. There is no prevertebral soft tissue swelling. The thyroid gland and visualized portions of the lung apices and mediastinum are unremarkable. IMPRESSION: No acute visible fracture or dislocation. Dictated By: Ramon Brewer MD Signed By: Electronically signed by Ramon Brewer MD 03/28/24 1218 - EXAMINATION: CT THORACIC SPINE WITH CONTRAST CT LUMBAR SPINE WITH CONTRAST CLINICAL INFORMATION: Recent surgery, altered mental status. COMPARISON: Plain films of the lumbar spine earlier. MRI scan of the lumbar and thoracic spines 01/10/2024. CT scan of the thoracic spine [facility] 12/27/2023. 03/28/2024 TECHNIQUE: Thoracic spine, which was demonstrated on prior imaging. Overall, bone mineralization is markedly decreased, consistent with osteopenia/osteoporosis. Postcontrast axial CT scans of the thoracic and lumbar spine were obtained following the intravenous administration of 85 mL of Omnipaque 350. Coronal and sagittal reformatted images were generated at the technologist workstation. This CT examination was performed using dose optimization techniques as appropriate, variously including the following: *Automated exposure control *Adjustment of mA and/or kV according to patient size (this includes techniques or standardized protocols for targeted exams where dose is matched to indication/reason for exam; i.e. extremities or head) *Use of iterative reconstruction technique DLP: 1511 mGy-cm. FINDINGS: CT THORACIC SPINE: VERTEBRAL BODIES AND PARASPINAL STRUCTURES: There is hyperkyphosis in the lower thoracic spine at the level of T10-T11, demonstrated on prior imaging. There are now sequelae of kyphoplasties in the bodies of T10 and T11, demonstrated on the concurrent plain films of the lumbar spine. There is loss of vertebral body height of T7 and T8 on the current study, not demonstrated on the prior MRI scan. There is invagination of disc into the superior endplates at multiple levels in the upper thoracic spine. Bone mineralization is diffusely decreased consistent with osteopenia or osteoporosis. There is good parenchymal enhancement of the bilateral kidneys. There is bibasilar atelectasis, more extensive posteriorly on the left. SPINAL LEVELS: C7-T1 through T5-T6: Posterior vertebral body and disc contours are normal in is no central stenosis or cord compression. The neural foramina appear patent. T6-T7: There is slight posterior protrusion of the superior body of T7 into the spinal canal, but there is no central stenosis and the neural foramina are patent bilaterally. T7-T8: There is posterior protrusion of the superior body of T8 into the spinal canal without significant stenosis. The neural foramina are patent bilaterally. T10-T11: As described above there are kyphoplasties at these levels. There is posterior protrusion of the superior body of T11 into the spinal canal with approximately 20% central stenosis. The neural foramina appear patent. CT LUMBAR SPINE: FINDINGS: VERTEBRAL BODIES AND PARASPINAL STRUCTURES: There is overall anatomic alignment of the vertebral bodies. There are compression fractures of the bodies of L2, L4 and L5. There has been interval worsening of the compression fracture of the superior body of L4, with invagination of disc into the superior endplate. There are superior compression fractures of the bodies of L2 and L5 which are new compared to the prior MRI scan. Intervertebral disc heights are maintained. Bone mineralization is diffusely decreased consistent with osteopenia or osteoporosis. There is a 1.3 cm left renal cyst which does not need further imaging evaluation. There is mild free fluid in the pelvis. There are moderately prominent mesenteric vessels. SPINAL LEVELS: T12-L1: The facet joints appear normal bilaterally. Disc contour is normal. There is no central stenosis or foraminal narrowing. L1-L2: The facet joints appear normal. There is posterior protrusion of the superior body of L2 and the spinal canal with approximately 15-20% central stenosis. The neural foramina are patent bilaterally. L2-L3: The facet joints appear normal bilaterally. Disc contour is normal. There is no central stenosis or foraminal narrowing. L3-L4: There is minimal facet arthropathy bilaterally. There is posterior protrusion of the superior body of L4 into the spinal canal with approximately 30-40% central stenosis, not significantly changed compared to prior imaging. The neural foramina are patent bilaterally. L4-L5: The facet joints appear normal bilaterally. There is mild posterior protrusion of the superior body of L5 into the the spinal canal with minimal central stenosis. The neural foramina are patent. L5-S1: The facet joints appear normal bilaterally. Disc contour is normal. There is no central stenosis or foraminal narrowing. CT/CT lumbar spine w IV con IMPRESSION: Thoracic Spine: 1. There are now sequelae of kyphoplasties in the bodies of T10 and T11. There is loss of vertebral body height of T7 and T8 on the current study, not demonstrated on the prior MRI scan. Bone mineralization is diffusely decreased consistent with osteopenia or osteoporosis. 2. There is hyperkyphosis at the level of T10-T11. There are no acute subluxations. The paravertebral structures are unremarkable. Lumbar Spine: 1. There are compression fractures of the bodies of L2, L4 and L5. The fractures of L2 and L5 are new compared to the prior MRI scan, and there has been interval worsening of the compression fracture of L4. 2. There are posterior protrusions of the superior bodies of L2, L4 and L5 into the spinal canal with central stenosis at these levels as described above. There is posterior protrusion of the superior body of L4 into the spinal canal at L3-L4 with approximately 30-40% central stenosis. The neural foramina appear patent. 3. There is diffuse osteopenia or osteoporosis. 4. There is mild free fluid in the pelvis. Dictated By: AUTUMN REAGAN MD Signed By: Electronically signed by AUTUMN REAGAN MD 03/28/24 1437 - EXAMINATION: US ABDOMEN LIMITED CLINICAL INFORMATION: Elevated LFT. COMPARISON: Prior study November 2022 TECHNIQUE: Real-time imaging of the right upper quadrant abdominal viscera. FINDINGS: PANCREAS: The visualized portion of the pancreas head and body are normal, portion of the pancreatic body and tail, not visualized are obscured by bowel gas. 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 The liver is normal in size. The liver contour is normal. Parenchymal echogenicity is normal. No focal hepatic lesion. There is no intrahepatic biliary duct dilatation seen. GALLBLADDER: Markedly distended The gallbladder is physiologically distended without evidence of stones, sludge, polyps, wall thickening or pericholecystic fluid. COMMON BILE DUCT: Normal in caliber measuring 0.3 cm in diameter. RIGHT KIDNEY: Normal. No hydronephrosis. No renal calculi or focal parenchymal lesions. The kidney measures 10.4 cm in maximum dimension. FREE FLUID: None. US/US abdomen limited IMPRESSION: 1. 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 2. No ultrasound evidence of focal liver lesion. Dictated By: Rosana Ramirez MD Signed By: Electronically signed by Rosana Ramirez MD 03/28/24 1322 - Vent. Rate: 124 BPM Atrial Rate: 124 BPM P-R Int: 148 ms QRS Dur: 092 ms QT Int: 330 ms P-R-T Axes: 063 005 035 degrees QTc Int: 474 ms Sinus tachycardia Possible Left atrial enlargement Borderline ECG No previous ECGs available TD/TT: 03/28/24 1029 Radiology Impression Discussion of test interpretation with radiology: I have reviewed the radiologist's reading. Critical Care Time Critical Care Time Critical Care Time: Yes Total Critical Care Time: 128 Attestation: I spent 128 minutes of Critical Care Time with this patient. This does not include time spent on separately reported billable procedures. Discharge Plan Discharge Clinical Impression: Primary sclerosing cholangitis, Increased ammonia level, Seizure Patient Disposition: Admitted As Inpatient Prescriptions: No Action ursodiol 250 mg Tablet 250 mg PO QID mesalamine [Lialda] 1.2 gram Tablet,Delayed Release (Dr/Ec) 2.4 g PO DAILY oxycodone 5 mg tablet 5 mg PO QID PRN (Reason: Pain) Print Language: Khmer
[2024-03-28] MEDS: levETIRAcetam in NaCl (iso-os) 1,000 MG/100 ML PIGGYBACK 400 MG IV (10:35)
[2024-03-28 10:37] LABS: MANUAL DIFF FLAG NO
[2024-03-28 10:41] LABS: Venous Blood Gas Refer to POC result
[2024-03-28 10:42] LABS: Basophils Absolute Auto 0.1 X10*3/uL (0.0-0.2); Basophils Percent Auto 0.7 % (0-2); Eosinophils Absolute Auto 0.2 X10*3/uL (0.0-0.4); Eosinophils Percent Auto 1.3 % (0-4); Hemoglobin 16.5 g/dl (14.0-18.0); Imm Gran Abs Auto 0.36 X10*3/uL (0.00-0.03); Imm Gran Pct Auto 2.4 % (0.0-0.4); Lymphocytes Absolute Auto 1.7 X10*3/uL (1.2-4.9); Lymphocytes Percent Auto 11.2 % (20-40); Mean Corpuscular HGB Conc 32.4 g/dl (31.0-36.0); Mean Corpuscular Volume 95.7 fL (80.0-98.0); Mean Platelet Volume 10.6 fL (9.4-12.4); Monocytes Absolute Auto 0.8 X10*3/uL (0.1-1.2); Monocytes Percent Auto 5.4 % (2-11); Platelet Count 278 X10*3/uL (160-400); Red Blood Count 5.33 X10*6/uL (4.60-5.80); Red Cell Distribution Width 13.1 % (11.0-16.0); White Blood Count 15.1 X10*3/uL (4.8-10.8)
[2024-03-28 10:43] LABS: VBG Base Excess -18.2 mmol/L; VBG HCO3 14 mmol/L (22-26); VBG pCO2 64 mmHg; VBG pH 6.96 (7.32-7.43); VBG pO2 60 mmHg
[2024-03-28 10:43] LABS: Glucose, Whole Blood 121 mg/dL (60-115)
[2024-03-28 10:43] LABS: NRBC Pct Auto 1.6 /100WBC (0.0-0.2)
[2024-03-28 10:47] LABS: Ammonia 175 umol/L (13-55)
[2024-03-28 10:54] LABS: Alanine Aminotransferase 228 U/L (0-40); Albumin Level 5.4 g/dL (3.5-5.0); Alkaline Phosphatase 630 U/L (39-117); Anion Gap 29 (12-20); Aspartate Amino Transferase 179 U/L (5-37); Bilirubin Total 1.4 mg/dL (0.0-1.0); Blood Urea Nitrogen 16 mg/dL (9-16); Calcium 10.6 mg/dL (8.4-10.2); Carbon Dioxide 16 mmol/L (22-29); Chloride 104 mmol/L (96-108); Creatinine Clr Calc Pharmacy 105.8; Estimated Glomerular Filt Rate > 60; Glucose Random 117 mg/dL (60-115); Magnesium 2.3 mg/dL (1.6-2.6); Potassium 3.3 mmol/L (3.3-5.1); Sodium 146 mmol/L (135-145); Total Protein 9.8 g/dL (6.5-8.0)
[2024-03-28 10:59] LABS: Lactic Acid 15.2 mmol/L (0.5-2.0)
[2024-03-28 11:26] LABS: Influenza A PCR NEGATIVE (Negative); Influenza B PCR NEGATIVE (Negative); Resp Syncy Virus RNA Qual PCR NEGATIVE (Negative); SARS COV2 PCR INHOUSE NEGATIVE (Negative)
--- NOTE | 2024-03-28 11:32 | PC.NURSE ---
late entry: notified by radiology that pt was having a seizuyre in the waiting room. upon inspection of the pt he presented with a fixed gaze, tonic-clonic movements, pt cyanotic in color, appeared to have minimal RR. immediately brought back to ER
[2024-03-28] MEDS: cefTRIAXone sodium 2 GM in 0.9 % Sodium Chloride 50 ML IV (11:34)
--- NOTE | 2024-03-28 11:38 | PC.NURSE ---
Late entry: Pt wheeled back from waiting room having active seizure, tonic-clonic movements and unresponsive, poor respirations. Pt immediately moved to ER bed by staff, respirations assisted via BVM by RT. IV access obtained bilat by RNS, 20G in bilat ACs. Labs drawn and set. PA at bedside. Pt administered 2 mg of Versed via IVP and brought to room 6. Pt placed on bedside cardiac care unit nurse, sinus tach and vitals monitored. Pt administered another 2mg of Versed via IVP for continuous seizure. Airway remained patent and monitored by RT and RN. After brief period, seizure activity ended and pt moaning, remained unresponsive. IV Keppra initiated and seizure precautions in place. Pt placed on zoll cardiac care unit nurse and transferred to CT with RN. RN remained with pt during CT scan. No further seizure activity, vitals remained stable.
[2024-03-28 11:39] LABS: Appearance Urine Clear; Color Urine Dark Yellow; Glucose Urine UA Negative (Negative); Leukocyte Esterase Urine Negative (Negative); Nitrite Urine Negative (Negative); Specific Gravity - Urine >= 1.030 (1.005-1.025); UMIC TRIGGER UACC YES; Urine Blood Negative (Negative); Urine Ketones Negative (Negative); Urine Protein 30 (1+) mg/dL (Neg-Trace)
--- NOTE | 2024-03-28 11:42 | PC.NURSE ---
Pt currently awake, answering questions slowly. Oriented to person, place and time. Needs frequent reassurance. Moving all extremities spontaneously. Reports lower back pain, 9/10, which he initially presented to ER with. Vital signs stable on monitor technician. Pt continued on NC 2L O2 for comfort.
--- NOTE | 2024-03-28 11:44 | PC.NURSE ---
Peter placed with no complications, immediate urine output of 800 mL, dark orange urine, clear.
[2024-03-28 11:46] LABS: Prothrombin Time 12.1 SEC (11.1-13.3)
[2024-03-28 11:48] LABS: Amphetamine Screen Urine Not Detected (Not Detect); Barbiturates, Urine Not Detected (Not Detect); Benzodiazepines Screen Urine POSITIVE (Not Detect); Buprenorphine Scr Not Detected (Not Detect); Cannabinoid Screen Urine Not Detected (Not Detect); Cocaine Screen Urine Not Detected (Not Detect); Fentanyl, urine Not Detected (Not Detect); Methadone Screen, Urine Not Detected (Not Detect); Opiate Screen Urine Not Detected (Not Detect); Oxycodone Screen Urine Not Detected (Not Detect); Phencyclidine Screen Urine Not Detected (Not Detect)
[2024-03-28] MEDS: iohexoL 350 MG/ML 100 ML INFUS..BTL IV (11:55)
[2024-03-28] MEDS: Lactulose 20 GM/30 ML SOLUTION PO (12:34)
[2024-03-28 12:35] LABS: Bacteria Urine None Seen (None Seen); RBC Urine 0-2 /HPF (0-2); Squamous Epithelial Cell Urine 0-2 /HPF (0-2); UACC Culture Trigger YES
[2024-03-28 12:38] LABS: Reflex Lactate? Lactic Acid Added
[2024-03-28] MEDS: Morphine Sulfate 4 MG/ML CARTRIDGE IVPUSH ×2 (12:44→19:48)
[2024-03-28] MEDS: 0.9 % Sodium Chloride 1,000 ML 999 ML IV ×2 (12:46→14:54)
--- NOTE | 2024-03-28 12:49 | PC.NURSE ---
Meds late due to waiting for them from pharmacy
--- NOTE | 2024-03-28 12:49 | PC.NURSE ---
Pt medicated per JAN for lower back pain, 06/12, which is why he initially presented to ER. Reports back pain started this morning, had recent lower back surgery here in February of this year. Denies any new falls or illnesses.
--- NOTE | 2024-03-28 13:29 | PC.NURSE ---
Still waiting for meds from pharmacy, called and they said they will be coming shortly
[2024-03-28] MEDS: Erythromycin Base 250 MG TABLET PO (13:30)
[2024-03-28] MEDS: rifAXIMin 550 MG TABLET PO (13:30)
[2024-03-28 14:44] LABS: ~Lactic Acid-LAB USE ONLY 1.1 mmol/L (0.5-2.0)
[2024-03-28] MEDS: Lactulose 20 GM/30 ML SOLUTION 30 GM PO ×2 (14:53→23:46)
--- NOTE | 2024-03-28 15:08 | P.HPHOSP_ITS ---
History of Present Illness Date of Service: 03/28/24 Attending physician on admission: Tay Anthony Chief Complaint: Back pain, new onset seizure Pt is a 39-year-old male with a PMH significant for?ulcerative colitis, primary sclerosing cholangitis, osteoporosis, and recent kyphoplasty of T10 and T11 vertebral bodies on 02/05/2024 who presents to the ED for evaluation of lower back pain. Patient states he was in his normal state of health last night when he went to bed, when he woke up this morning had significant lower back pain he rates a 9/10 and found he was unable to move or get up. Denies any recent falls or trauma to his back. While in the ED waiting room patient was sitting in a wheelchair when his mother noticed he was experiencing tonic-clonic like seizure activity. Patient remained in wheelchair and did not fall. Patient was brought into the ED and given 4 mg of Versed that broke the seizure. Patient with no seizure history other than an afebrile seizure when he was an . Patient currently is alert and oriented x4 and resting comfortably in bed. Continues to report lower back pain and difficulty moving his legs, but otherwise says he feels well without any other acute medical complaints. Denies numbness or tingling in extremities. No saddle anesthesia. Denies any change to bowel or bladder habits. No mouth pain or tongue bite. Denies confusion or fuzzy thinking. Denies fever, chills, abdominal pain, though reports one episode of vomiting a small amount of spit this morning. No chest pain/pressure or palpitations. Denies any recent illnesses. No shortness a breath or difficulty breathing. Of note, pt's DEXA scan on 01/14/2024 was -4.2 in lumbar spine. Has not been started on any medications for osteoporosis get, but will be seeing an physician in private practice next month. In the ED pt was tachycardic up to 127 and tachypneic up to 22. Labs were significant for leukocytosis of leukocytosis of 15.1, sodium 146, lactic acid 15.2 with repeat 1.1, bilirubin 1.4, AST 179, ALT 228, alk-phos 630, and ammonia 175. Tox screen negative. Negative for flu, RSV, COVID. CXR showed no dense focal consolidation pneumonia, but showed diffuse interstitial lung markings and peribronchial cuffing possible for small airway disease versus interstitial lung disease versus interstitial edema. CT?of head found no acute intracranial pathology. CT of cervical spine found no acute fracture or dislocation. CT of thoracic spine found loss of vertebral body height of T7-T8 and evidence of osteopenia osteoporosis. CT of lumbar spine found new compression fractures at L2 and L5 and worsening compression fracture of L4. Also showed posterior protrusions of superior bodies of L2, L4, L5, and posterior protrusion of superior body of L4 and L3- L4. Abdominal ultrasound redemonstrated echogenic portal triads consistent with primary sclerosing cholangitis. EKG demonstrated sinus tachycardia of 124 but no evidence of significant ST elevations or depressions. Pt was treated with midazolam 2 mg IV x2 doses, Keppra 1000 mg, lactulose, morphine, IVF, rifaximin, azithromycin, and ceftriaxone. Pt will be admitted to the hospital for treatment further evaluation of new onset seizure as well as intractable back pain secondary to new compression fractures. Review of Systems 2 Review of Systems: Tonic-clonic seizure Lower back pain Difficulty ambulating One episode of vomiting No trauma or recent falls Denies numbness or tingling in extremities No cyanosis anesthesia, changes to bowel or bladder habits Denies fever, chills, abdominal pain No chest pain/pressure, palpitations Denies shortness of breath [facility] Medical History Ulcerative colitis Primary sclerosing cholangitis Surgical History History of hand surgery H/O right inguinal hernia repair H/O colonoscopy Social History Patient Tobacco Use Status: Never used Tobacco Smoked in Last 30 Days: No Use of substances other than those prescribed or required for medical reasons: No Advance Directives: No Advance Directives Information Provided: No Meds Allergies Allergy/AdvReac Type Severity Reaction Status Date / Time No Known Allergies Allergy Verified 03/28/24 09:09 Active Medications: Current Medications Sodium Chloride (Ns) 1,000 mls @ 999 mls/hr IV .Q1H1M WAN Stop: 03/28/24 15:45 Last Admin: 03/28/24 14:54 Dose: 999 mls/hr Lactulose (Lactulose 20 Gm/30 Ml Solution) 30 gm PO TID [facility] Last Admin: 03/28/24 14:53 Dose: 30 gm Home Medications ?Medication ?Instructions ?Recorded ?Confirmed ?Last Taken ?Type mesalamine 1.2 gram tablet,delayed 2.4 g PO DAILY 12/09/22 03/28/24 03/28/24 History release (Lialda) ursodiol 250 mg tablet 250 mg PO QID 12/09/22 03/28/24 03/28/24 History multivitamin 1 tab PO DAILY 03/28/24 03/28/24 Unknown History Physical Exam 2 Vital Signs and Narrative: Vital Signs: Last Vital Signs Temp 98.7 F 03/28/24 14:00 Pulse 118 H 03/28/24 12:36 Resp 22 H 03/28/24 12:44 BP 121/93 H 03/28/24 12:36 Pulse Ox 97 03/28/24 12:36 O2 Del Method Nasal Cannula 03/28/24 12:36 O2 Flow Rate 2 03/28/24 12:36 BMI result Body Mass Index 22.8 Constitutional: Alert, in no acute distress. Mental Status: Oriented to person, place and time. Eyes: Pupils are equal, round, and reactive to light. Ear, Nose, and Throat: Oropharynx clear, mucous membranes moist. Ears and nose without deformities. Trachea midline. Respiratory: Clear to auscultation bilaterally. No wheezing, rales, or rhonchi. Cardiovascular: S1, S2 regular rhythm, tachy. No murmurs, rubs, or gallops. Gastrointestinal: Abdomen soft, non-tender, non-distended. Normal bowel sounds. Neurologic: Cranial nerves II-XII are grossly intact bilaterally. No focal neurological deficits. Moves all extremities spontaneously, though with severely diminished 1/5 lower leg ROM secondary to pain. Skin: Warm, dry. Musculoskeletal: No cyanosis or clubbing. Extremities: No edema. Psychiatric: Normal mood and affect. Results Labs 03/28/24 10:30 03/28/24 10:30 Labs: Laboratory Results - last 24 hr 03/28/24 03/28/24 03/28/24 10:25 10:29 10:30 MCV 95.7 MCH 31.0 MCHC 32.4 RDW 13.1 Plt Count 278 MPV 10.6 Immature Gran % (Auto) 2.4 H Neut % (Auto) 79.0 H Lymph % (Auto) 11.2 L [place] % (Auto) 5.4 Eos % (Auto) 1.3 Baso % (Auto) 0.7 Lymph # (Auto) 1.7 [place] # (Auto) 0.8 Eos # (Auto) 0.2 Baso # (Auto) 0.1 Abs Immat Gran (auto) 0.36 H Absolute Neuts (auto) 12.0 H Absolute Nucleated RBC 0.240 H Nucleated RBC % (auto) 1.6 H PT INR APTT Hold Blue Top SEE NOTE VBG pH VBG pCO2 VBG pO2 VBG HCO3 VBG O2 Saturation VBG Base Excess Anion Gap 29 H Estim Creat Clear Calc 105.8 Estimated GFR > 60 POC Glucose 121 H Random Glucose 117 H Lactic Acid 15.2 H* Lactic Acid F/U @ 2Hr Calcium 10.6 H D Magnesium 2.3 Total Bilirubin 1.4 H AST 179 H ALT 228 H Alkaline Phosphatase 630 H Ammonia 175 H Total Protein 9.8 H Albumin 5.4 H Urine Color Urine Appearance Urine pH Ur Specific [place] Urine Protein Urine Glucose (UA) Urine Ketones Urine Blood Urine Nitrite Ur Leukocyte Esterase Urine RBC Urine WBC Ur Squamous Epith Cells Urine Bacteria Hyaline Casts Urine Opiates Screen Ur Buprenorphine Scrn Ur Oxycodone Screen Urine Methadone Screen Urine Fentanyl Screen Ur Barbiturates Screen Ur Phencyclidine Scrn Ur Amphetamines Screen U Benzodiazepines Scrn Urine Cocaine Screen U Marijuana (THC) Screen Influenza Type A (PCR) NEGATIVE Influenza Type B (PCR) NEGATIVE RSV RNA Qual (PCR) NEGATIVE SARS-CoV-2 RNA (RT-PCR) NEGATIVE 03/28/24 03/28/24 03/28/24 10:32 11:31 14:27 MCV MCH MCHC RDW Plt Count MPV Immature Gran % (Auto) Neut % (Auto) Lymph % (Auto) [place] % (Auto) Eos % (Auto) Baso % (Auto) Lymph # (Auto) [place] # (Auto) Eos # (Auto) Baso # (Auto) Abs Immat Gran (auto) Absolute Neuts (auto) Absolute Nucleated RBC Nucleated RBC % (auto) PT 12.1 INR 1.0 APTT 34.0 Hold Blue Top VBG pH 6.96 L* VBG pCO2 64 VBG pO2 60 VBG HCO3 14 L VBG O2 Saturation 72.0 VBG Base Excess -18.2 Anion Gap Estim Creat Clear Calc Estimated GFR POC Glucose Random Glucose Lactic Acid Lactic Acid F/U @ 2Hr 1.1 Calcium Magnesium Total Bilirubin AST ALT Alkaline Phosphatase Ammonia Total Protein Albumin Urine Color Dark Yellow Urine Appearance Clear Urine pH 6.0 Ur Specific [place] >= 1.030 H Urine Protein 30 (1+) H Urine Glucose (UA) Negative Urine Ketones Negative Urine Blood Negative Urine Nitrite Negative Ur Leukocyte Esterase Negative Urine RBC 0-2 Urine WBC 6-10 H Ur Squamous Epith Cells 0-2 Urine Bacteria None Seen Hyaline Casts 3-5 Urine Opiates Screen Not Detected Ur Buprenorphine Scrn Not Detected Ur Oxycodone Screen Not Detected Urine Methadone Screen Not Detected Urine Fentanyl Screen Not Detected Ur Barbiturates Screen Not Detected Ur Phencyclidine Scrn Not Detected Ur Amphetamines Screen Not Detected U Benzodiazepines Scrn POSITIVE H Urine Cocaine Screen Not Detected U Marijuana (THC) Screen Not Detected Influenza Type A (PCR) Influenza Type B (PCR) RSV RNA Qual (PCR) SARS-CoV-2 RNA (RT-PCR) Imaging Radiologist's Impressions: Impressions Lumbar Spine X-Ray 03/28/24 10:00 IMPRESSION: 1. Status post vertebral augmentation of T10 and T11. 2. Loss of height of the superior endplate of L5, chronicity indeterminate. Correlation with physical exam. 3. Redemonstrated loss of height of superior endplate of L4. Chest X-Ray 03/28/24 11:52 IMPRESSION: 1. Diminished lung volume. 2. Diffuse increased interstitial lung marking and peribronchial cuffing might be a small airway disease such as bronchiolitis or interstitial pneumonitis, versus interstitial lung disease versus interstitial edema. No dense focal consolidation pneumonia. Cervical Spine CT 03/28/24 11:53 IMPRESSION: No acute intracranial pathology. EXAMINATION: Noncontrast CT scan of the cervical spine. INDICATION: Altered mental status COMPARISON: None. TECHNIQUE: Helical, multidetector axial images were obtained from the occiput to the upper thorax. Coronal and sagittal reformats of the cervical spine were provided for interpretation. DLP: 349.7 mGy-cm FINDINGS: No acute fractures or dislocations of the cervical spine are seen. Anatomic alignment and positioning of the vertebral bodies and posterior elements is noted. The atlantoaxial joint and craniovertebral articulations are normal without evidence of subluxation. There is no prevertebral soft tissue swelling. The thyroid gland and visualized portions of the lung apices and mediastinum are unremarkable. IMPRESSION: No acute visible fracture or dislocation. Head CT 03/28/24 11:53 IMPRESSION: No acute intracranial pathology. EXAMINATION: Noncontrast CT scan of the cervical spine. INDICATION: Altered mental status COMPARISON: None. TECHNIQUE: Helical, multidetector axial images were obtained from the occiput to the upper thorax. Coronal and sagittal reformats of the cervical spine were provided for interpretation. DLP: 349.7 mGy-cm FINDINGS: No acute fractures or dislocations of the cervical spine are seen. Anatomic alignment and positioning of the vertebral bodies and posterior elements is noted. The atlantoaxial joint and craniovertebral articulations are normal without evidence of subluxation. There is no prevertebral soft tissue swelling. The thyroid gland and visualized portions of the lung apices and mediastinum are unremarkable. IMPRESSION: No acute visible fracture or dislocation. Lumbar Spine CT 03/28/24 11:53 IMPRESSION: Thoracic Spine: 1. There are now sequelae of kyphoplasties in the bodies of T10 and T11. There is loss of vertebral body height of T7 and T8 on the current study, not demonstrated on the prior MRI scan. Bone mineralization is diffusely decreased consistent with osteopenia or osteoporosis. 2. There is hyperkyphosis at the level of T10-T11. There are no acute subluxations. The paravertebral structures are unremarkable. Lumbar Spine: 1. There are compression fractures of the bodies of L2, L4 and L5. The fractures of L2 and L5 are new compared to the prior MRI scan, and there has been interval worsening of the compression fracture of L4. 2. There are posterior protrusions of the superior bodies of L2, L4 and L5 into the spinal canal with central stenosis at these levels as described above. There is posterior protrusion of the superior body of L4 into the spinal canal at L3-L4 with approximately 30-40% central stenosis. The neural foramina appear patent. 3. There is diffuse osteopenia or osteoporosis. 4. There is mild free fluid in the pelvis. Thoracic Spine CT 03/28/24 11:53 IMPRESSION: Thoracic Spine: 1. There are now sequelae of kyphoplasties in the bodies of T10 and T11. There is loss of vertebral body height of T7 and T8 on the current study, not demonstrated on the prior MRI scan. Bone mineralization is diffusely decreased consistent with osteopenia or osteoporosis. 2. There is hyperkyphosis at the level of T10-T11. There are no acute subluxations. The paravertebral structures are unremarkable. Lumbar Spine: 1. There are compression fractures of the bodies of L2, L4 and L5. The fractures of L2 and L5 are new compared to the prior MRI scan, and there has been interval worsening of the compression fracture of L4. 2. There are posterior protrusions of the superior bodies of L2, L4 and L5 into the spinal canal with central stenosis at these levels as described above. There is posterior protrusion of the superior body of L4 into the spinal canal at L3-L4 with approximately 30-40% central stenosis. The neural foramina appear patent. 3. There is diffuse osteopenia or osteoporosis. 4. There is mild free fluid in the pelvis. Abdomen Ultrasound 03/28/24 12:30 IMPRESSION: 1. 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 2. No ultrasound evidence of focal liver lesion. Assessment and Plan (1) Seizure: Status: Acute (2) Lumbar compression fracture: Status: Acute Plan Pt is a 39-year-old male with a PMH significant for?ulcerative colitis, primary sclerosing cholangitis, osteoporosis, and recent kyphoplasty of T10 and T11 vertebral bodies on 02/05/2024 who presents to the ED for evaluation of lower back pain. Pt will be admitted to the hospital for treatment further evaluation of new onset seizure as well as intractable back pain secondary to new compression fractures. New onset seizure Patient with witnessed tonic-clonic like seizure activity in the ED waiting room No previous history of seizure activity other than febrile seizure as an infant Patient given Versed 4 mg IV and loaded with Keppra 1000 mg IV Will hold off on giving additional Keppra pending Neurology consult EEG Seizure precautions Neurology consult Monitor on telemetry Hyperammonemia Ammonia elevated at 179 at time presentation Patient given lactulose and rifaximin in the ED Likely transiently elevated in the setting of seizure Patient asymptomatic, not encephalopathic Will recheck ammonia levels tomorrow Lactic acidosis, resolved Initial lactic acid 15.2 at time of presentation repeat 1.1 after IVF Secondary to new onset seizure, not sepsis Leukocytosis WBCs 15.1 at time of presentation Likely reactionary in the setting of new onset seizure No indication of infection at this time, no sepsis Patient given empiric ceftriaxone in the ED No indication at this time to continue antibiotic treatment Follow CBC New lumbar compression fractures CT of lumbar spine showed new compression fractures to L2 and L5 and worsening L4 fracture Previously had kyphoplasty of T10 and T11 on 02/04/2023 DEXA scan on 01/14/2024 with a Z-score in lumbar spine of -4.2 Currently not on any home meds Has initial physician in private practice appointment scheduled for [facility] for pain management PT consult Will also need to follow up outpatient with spine clinic Primary sclerosing cholangitis Abdominal U/S negative for acute abdomen but redemonstrated echogenic portal triads Patient asymptomatic, no abdominal pain or N/V/D Follow-up outpatient with GI Ulcerative colitis Continue mesalamine Full Code Attending:?Dr. Anthony DVT Prophylaxis: Lovenox Pt will require a hospitalization of at least two nights for treatment of?new onset seizure and intractable lower back pain in setting of acute lumbar compression fractures. Given degree of abnormal labs as well as new onset seizure, patient will require hospitalization for close monitoring of labs and cardiac function, administration of IV analgesics for intractable lower back pain, as well as specialist consultation with Neurology. Quality Stroke Does the patient have a stroke diagnosis?: No VTE Prior VTE?: No VTE Risk Level:: Medical - moderate - high VTE Device Contraindication: Treatment Not Indicated VTE Drug Contraindication: N/A - Med Ordered
--- NOTE | 2024-03-28 15:26 | PHA.MEDREC ---
Pharmacy Consult ? Medication Reconciliation Pharmacy has completed the medication reconciliation. patient states he takes ursodiol and mesalamine and last took them this morning. No claim history to support. Called [facility] to verify and they have no prescriptions for them on file.
[2024-03-28] MEDS: Enoxaparin Sodium 40 MG/0.4 ML SYRINGE SUBCUT (16:33)
[2024-03-28] MEDS: 0.9 % Sodium Chloride Flush 3 ML SYRINGE IVFLUSH (16:35)
--- NOTE | 2024-03-28 17:36 | PC.NURSE ---
Pt noted to be alert and oriented, breathing even and unlabored. Pt remains reporting lower back pain, does not want pain meds at this time. Able to tolerate food and liquids well.
--- NOTE | 2024-03-28 19:36 | PC.NURSE ---
pt requests prn morphine for pain; chronic lower back pain. pt refused repositioning/hospital bed.
[2024-03-28] MEDS: ondansetron HCL 4 MG/2 ML VIAL IVPUSH (19:54)
--- NOTE | 2024-03-28 19:54 | PC.NURSE ---
pt felt nauseous while giving morphine, prn zofran given. pt did not have vomiting episode. pt states nausea improved with zofran.
[2024-03-29] VITALS (7 sets, daily range): BP systolic 105–135; BP diastolic 74–93; PULSE 62–118; RESP 16–112; TEMP 36.1–37.2; O2SAT 90–97
[2024-03-29 07:07] LABS: Hematocrit 43.9 % (42.0-52.0); Hemoglobin 15.1 g/dl (14.0-18.0); Mean Corpuscular HGB Conc 34.4 g/dl (31.0-36.0); Mean Corpuscular Hemoglobin 30.7 pg (27.0-33.0); Mean Corpuscular Volume 89.2 fL (80.0-98.0); Mean Platelet Volume 10.1 fL (9.4-12.4); Platelet Count 228 X10*3/uL (160-400); Red Blood Count 4.92 X10*6/uL (4.60-5.80); Red Cell Distribution Width 13.4 % (11.0-16.0)
[2024-03-29 07:09] LABS: Ammonia 50 umol/L (13-55)
[2024-03-29 07:45] LABS: Alanine Aminotransferase 127 U/L (0-40); Alkaline Phosphatase 418 U/L (39-117); Anion Gap 15 (12-20); Aspartate Amino Transferase 78 U/L (5-37); Bilirubin Total 1.8 mg/dL (0.0-1.0); Blood Urea Nitrogen 10 mg/dL (9-16); Calcium 9.3 mg/dL (8.4-10.2); Carbon Dioxide 21 mmol/L (22-29); Chloride 108 mmol/L (96-108); Creatinine Clr Calc Pharmacy 134.4; Estimated Glomerular Filt Rate > 60; Glucose Random 108 mg/dL (60-115); Potassium 4.2 mmol/L (3.3-5.1); Sodium 140 mmol/L (135-145); Total Protein 7.6 g/dL (6.5-8.0)
[2024-03-29] MEDS: Lactulose 20 GM/30 ML SOLUTION 30 GM PO ×3 (08:33→21:19)
[2024-03-29] MEDS: Multivitamin TABLET 1 TAB PO (08:33)
[2024-03-29] MEDS: 0.9 % Sodium Chloride Flush 3 ML SYRINGE IVFLUSH ×3 (08:35→21:22)
--- NOTE | 2024-03-29 09:28 | MHC.CM.PN ---
Pt self-care, lives at home with his mother and step father who will transport him home at discharge. HCP completed with pt, now on file. PCP: Dr. Alfonso Sierra
--- NOTE | 2024-03-29 09:34 | PM.NEUROCN ---
History of Present Illness Data of Consult Service Date: 03/29/24 Primary Care Provider: Alfonso Sierra MD [facility] Reason for consult: Generalized convulsion 39-year-old male with a PMH significant for?ulcerative colitis, primary sclerosing cholangitis, osteoporosis, and recent kyphoplasty of T10 and T11 vertebral bodies on 02/05/2024 who presents to the ED for evaluation of lower back pain. While in emergency room he apparently had a generalized convulsion that was treated with benzodiazepine. He was not known to have any previous convulsion or seizures. He denied using any drugs or any recent trauma. He did not remember what had happened. Review of Systems Review of Systems: Back pain with previous history of osteoporosis and kyphoplasty PMFSH Past Medical History Medical History Ulcerative colitis Primary sclerosing cholangitis Surgical History Surgical History History of hand surgery H/O right inguinal hernia repair H/O colonoscopy Social History Social History Household Members: Family Household Members Other:: Parents. Housing: House Do you presently have visiting nurse or other home services: No Patient Tobacco Use Status: Never used Tobacco service: No Meds Allergies Allergy/AdvReac Type Severity Reaction Status Date / Time No Known Allergies Allergy Verified 03/28/24 09:09 Active Medications: Current Medications Acetaminophen (Acetaminophen 325 Mg Tablet) 650 mg PO Q6H PRN PRN Reason: Pain, Mild (Pain Scale 1-3) Benzonatate (Benzonatate 100 Mg Capsule) 100 mg PO TID PRN PRN Reason: Cough Docusate Sodium (Docusate Sodium 100 Mg Capsule) 100 mg PO DAILY PRN PRN Reason: Constipation Enoxaparin Sodium (Enoxaparin Sodium 40 Mg/0.4 Ml Syringe) 40 mg SUBCUT Q24H REPLACED BY [facility] Last Admin: 03/28/24 16:33 Dose: 40 mg Lactulose (Lactulose 20 Gm/30 Ml Solution) 30 gm PO TID REPLACED BY [facility] Last Admin: 03/29/24 08:33 Dose: 30 gm Melatonin (Melatonin 3 Mg Tablet) 6 mg PO BEDTIME PRN PRN Reason: Insomnia Morphine Sulfate (Morphine Sulfate 4 Mg/Ml Cartridge) 4 mg IVPUSH Q4H PRN; Protocol PRN Reason: Pain, Severe (Pain Scale 7-10) Last Admin: 03/28/24 19:48 Dose: 4 mg Multivitamins/Vitamin C (Multivitamin Tablet) 1 tab PO DAILY REPLACED BY [facility] Last Admin: 03/29/24 08:33 Dose: 1 tab Ondansetron HCl (Ondansetron Hcl 4 Mg/2 Ml Vial) 4 mg IVPUSH Q8H PRN PRN Reason: Nausea and Vomiting Last Admin: 03/28/24 19:54 Dose: 4 mg Sodium Chloride (0.9 % Sodium Chloride Flush 3 Ml Syringe) 3 ml IVFLUSH QSHIFT REPLACED BY [facility] Last Admin: 03/29/24 08:35 Dose: 3 ml Home Medications ?Medication ?Instructions ?Recorded ?Confirmed ?Last Taken ?Type mesalamine 1.2 gram tablet,delayed 2.4 g PO DAILY 12/09/22 03/28/24 03/28/24 History release (Lialda) ursodiol 250 mg tablet 250 mg PO QID 12/09/22 03/28/24 03/28/24 History multivitamin 1 tab PO DAILY 03/28/24 03/28/24 Unknown History Physical Exam Vital Signs: Vital Signs: Last Vital Signs Temp 97 F 03/29/24 07:17 Pulse 98 03/29/24 07:17 Resp 16 03/29/24 07:17 BP 105/74 03/29/24 07:17 Pulse Ox 90 L 03/29/24 07:17 O2 Del Method Nasal Cannula 03/29/24 07:17 O2 Flow Rate 1 03/29/24 07:17 BMI result Body Mass Index 22.8 Neuro: Other: He is alert and awake with normal spontaneity of speech fluency comprehension and affect. Face is symmetrical. Visual shaikh are full. Deep tendon reflexes are trace to absent with flexor plantars. There is no asterisks. Range of motion in left shoulder was limited. Results Labs 03/29/24 06:47 03/29/24 06:47 Labs: Short CBC 03/28/24 03/29/24 Range/Units 10:30 06:47 WBC 15.1 H 13.0 H (4.8-10.8) X10*3/uL Hgb 16.5 15.1 (14.0-18.0) g/dl Hct 51.0 D 43.9 (42.0-52.0) % Plt Count 278 228 (160-400) X10*3/uL BMP 03/28/24 03/29/24 10:30 06:47 Sodium 146 H 140 Potassium 3.3 4.2 D Chloride 104 108 Carbon Dioxide 16 L 21 L BUN 16 10 Creatinine 0.80 0.63 Calcium 10.6 H D 9.3 D Liver Function 03/28/24 03/29/24 Range/Units 10:30 06:47 Total Bilirubin 1.4 H 1.8 H (0.0-1.0) mg/dL AST 179 H 78 H (5-37) U/L ALT 228 H 127 H (0-40) U/L Alkaline Phosphatase 630 H 418 H (39-117) U/L Albumin 5.4 H 4.0 (3.5-5.0) g/dL Urine 03/28/24 Range/Units 11:31 Urine Color Dark Yellow Urine Appearance Clear Urine pH 6.0 (5.0-9.0) Ur Specific [place] >= 1.030 H (1.005-1.025) Urine Protein 30 (1+) H (Neg-Trace) mg/dL Urine Glucose (UA) Negative (Negative) mg/dL Head CT did not reveal any acute abnormality. Microbiology Microbiology Results: Microbiology 03/28/24 10:38 Blood - Venous Blood Culture - Preliminary Prelim: GPC Gram Stain only Assessment and Plan (1) Seizure: Status: Acute 39 years old man with underlying liver disease with very high ammonia level had a generalized convulsion. It was likely triggered by high ammonia. My recommendation is to treat hyperammonemia and liver disease. Medicine for seizure is not recommended at this time. If any further seizure-like spell happened, re-consultation might be needed. Procedures Date of Service Date of Service: 03/29/24
--- NOTE | 2024-03-29 11:24 | P.PNIM_ITS ---
Subjective Subjective Date of Service: 03/29/24 Interval History: back pain, mentally back to baseline Physical Exam 2 Vital Signs: Vital Signs: Last Vital Signs Temp 97 F 03/29/24 07:17 Pulse 98 03/29/24 10:40 Resp 16 03/29/24 07:17 BP 105/74 03/29/24 10:40 Pulse Ox 90 L 03/29/24 10:40 O2 Del Method Nasal Cannula 03/29/24 07:17 O2 Flow Rate 1 03/29/24 07:17 BMI result Body Mass Index 22.8 Neuro: Other: He is alert and awake with normal spontaneity of speech fluency comprehension and affect. Face is symmetrical. Visual shaikh are full. Deep tendon reflexes are trace to absent with flexor plantars. There is no asterisks. Range of motion in left shoulder was limited. Objective Data Active Medications Acetaminophen (Acetaminophen 325 Mg Tablet) 650 mg PO Q6H PRN PRN Reason: Pain, Mild (Pain Scale 1-3) Benzonatate (Benzonatate 100 Mg Capsule) 100 mg PO TID PRN PRN Reason: Cough Docusate Sodium (Docusate Sodium 100 Mg Capsule) 100 mg PO DAILY PRN PRN Reason: Constipation Enoxaparin Sodium (Enoxaparin Sodium 40 Mg/0.4 Ml Syringe) 40 mg SUBCUT Q24H [facility] Last Admin: 03/28/24 16:33 Dose: 40 mg Documented By: MARIELENA Lactulose (Lactulose 20 Gm/30 Ml Solution) 30 gm PO TID [facility] Last Admin: 03/29/24 08:33 Dose: 30 gm Documented By: ALEJANRDO Melatonin (Melatonin 3 Mg Tablet) 6 mg PO BEDTIME PRN PRN Reason: Insomnia Morphine Sulfate (Morphine Sulfate 4 Mg/Ml Cartridge) 4 mg IVPUSH Q4H PRN; Protocol PRN Reason: Pain, Severe (Pain Scale 7-10) Last Admin: 03/28/24 19:48 Dose: 4 mg Documented By: JEREL Multivitamins/Vitamin C (Multivitamin Tablet) 1 tab PO DAILY [facility] Last Admin: 03/29/24 08:33 Dose: 1 tab Documented By: ALEJANDRO Ondansetron HCl (Ondansetron Hcl 4 Mg/2 Ml Vial) 4 mg IVPUSH Q8H PRN PRN Reason: Nausea and Vomiting Last Admin: 03/28/24 19:54 Dose: 4 mg Documented By: JEREL Sodium Chloride (0.9 % Sodium Chloride Flush 3 Ml Syringe) [facility] Last Admin: 03/29/24 08:35 Dose: 3 ml Documented By: ALEJANDRO Labs 03/29/24 06:47 03/29/24 06:47 Labs: Laboratory Results - last 24 hr 03/28/24 03/28/24 03/28/24 10:30 11:31 14:27 MCV MCH MCHC RDW Plt Count MPV Absolute Nucleated RBC Nucleated RBC % (auto) PT 12.1 INR 1.0 APTT 34.0 Anion Gap Estim Creat Clear Calc Estimated GFR Random Glucose Lactic Acid F/U @ 2Hr 1.1 Calcium Total Bilirubin AST ALT Alkaline Phosphatase Ammonia Total Protein Albumin Urine Color Dark Yellow Urine Appearance Clear Urine pH 6.0 Ur Specific [place] >= 1.030 H Urine Protein 30 (1+) H Urine Glucose (UA) Negative Urine Ketones Negative Urine Blood Negative Urine Nitrite Negative Ur Leukocyte Esterase Negative Urine RBC 0-2 Urine WBC 6-10 H Ur Squamous Epith Cells 0-2 Urine Bacteria None Seen Hyaline Casts 3-5 Urine Opiates Screen Not Detected Ur Buprenorphine Scrn Not Detected Ur Oxycodone Screen Not Detected Urine Methadone Screen Not Detected Urine Fentanyl Screen Not Detected Ur Barbiturates Screen Not Detected Ur Phencyclidine Scrn Not Detected Ur Amphetamines Screen Not Detected U Benzodiazepines Scrn POSITIVE H Urine Cocaine Screen Not Detected U Marijuana (THC) Screen Not Detected Influenza Type A (PCR) NEGATIVE Influenza Type B (PCR) NEGATIVE RSV RNA Qual (PCR) NEGATIVE SARS-CoV-2 RNA (RT-PCR) NEGATIVE 03/29/24 03/29/24 06:45 06:47 MCV 89.2 D MCH 30.7 MCHC 34.4 RDW 13.4 Plt Count 228 MPV 10.1 Absolute Nucleated RBC 0.000 Nucleated RBC % (auto) 0.0 PT INR APTT Anion Gap 15 Estim Creat Clear Calc 134.4 Estimated GFR > 60 Random Glucose 108 Lactic Acid F/U @ 2Hr Calcium 9.3 D Total Bilirubin 1.8 H AST 78 H ALT 127 H Alkaline Phosphatase 418 H Ammonia 50 Total Protein 7.6 Albumin 4.0 Urine Color Urine Appearance Urine pH Ur Specific [place] Urine Protein Urine Glucose (UA) Urine Ketones Urine Blood Urine Nitrite Ur Leukocyte Esterase Urine RBC Urine WBC Ur Squamous Epith Cells Urine Bacteria Hyaline Casts Urine Opiates Screen Ur Buprenorphine Scrn Ur Oxycodone Screen Urine Methadone Screen Urine Fentanyl Screen Ur Barbiturates Screen Ur Phencyclidine Scrn Ur Amphetamines Screen U Benzodiazepines Scrn Urine Cocaine Screen U Marijuana (THC) Screen Influenza Type A (PCR) Influenza Type B (PCR) RSV RNA Qual (PCR) SARS-CoV-2 RNA (RT-PCR) Microbiology Microbiology Results: Microbiology 03/28/24 10:38 Blood Culture - Preliminary Blood - Venous Prelim: GPC Gram Stain only Assessment and Plan (1) Seizure: Status: Acute Plan 39M PMH ulcerative colitis, primary sclerosing cholangitis, osteoporosis presented with low back pain, had new onset seizure in ED, also noted to have new compression fractures New onset seizure Neurology appreciated, likely due to hyper ammonia, recommend treating ammonia and no AEDs at this time Ulcerative colitis and PSC complicated by hyper ammonia Continue lactulose, monitor Ursodiol, mesalamine Back pain due to acute compression fractures of L2 and L5 due to osteoporosis PT appreciated plan for acute rehab Pain control DVT prophylaxis Lovenox Full Code reason for continued hospitalization: Treating hyper ammonia, dispo planning Quality Stroke Does the patient have a stroke diagnosis?: No VTE Prior VTE?: No VTE Risk Level:: Medical - moderate - high VTE Device Contraindication: Treatment Not Indicated VTE Drug Contraindication: N/A - Med Ordered
[2024-03-29] MEDS: Morphine Sulfate 4 MG/ML CARTRIDGE IVPUSH ×2 (12:43→21:19)
[2024-03-29] MEDS: ondansetron HCL 4 MG/2 ML VIAL IVPUSH ×2 (12:50→21:18)
[2024-03-29] MEDS: Enoxaparin Sodium 40 MG/0.4 ML SYRINGE SUBCUT (15:11)
[2024-03-30] VITALS (9 sets, daily range): BP systolic 117–139; BP diastolic 85–103; PULSE 117–141; RESP 18–30; TEMP 36.3–36.7; O2SAT 93–96
--- NOTE | 2024-03-30 03:51 | PM.EVENT ---
Event Note Date of Service: 03/30/24 Event Note: 3:33 AM - Contacted to notify pt vomited up small amount dark almost black vomitus. Patient reported tender abdomen due to retching. Patient has been receiving Zofran IV but still nauseous. We will order Compazine, Protonix 80 mg IV then 40 mg IV q12h and NPO status. Occult blood stomach content ordered. 3:55 AM - Contacted by lab to notify second set blood culture collected 03/28/24 gram positive cocci in chains seen on gram stain. Tx with vancomycin started. Blood cultures X2 repeated. Time Spent With Patient Time: Total time managing care of this patient today ____ minutes.
[2024-03-30] MEDS: Pantoprazole Sodium 40 MG/10 ML VIAL 80 MG IVPUSH (04:01)
[2024-03-30] MEDS: Prochlorperazine Edisylate 10 MG/2 ML VIAL 5 MG IVPUSH (04:20)
[2024-03-30 04:48] LABS: GASOB Int Neg Ctl Valid YES; GASOB Int Pos Ctl Valid YES; Occult Blood Gastric POSITIVE (NEG)
[2024-03-30 05:15] LABS: Hematocrit 52.6 % (42.0-52.0); Hemoglobin 18.3 g/dl (14.0-18.0); Mean Corpuscular HGB Conc 34.8 g/dl (31.0-36.0); Mean Corpuscular Hemoglobin 30.8 pg (27.0-33.0); Mean Corpuscular Volume 88.6 fL (80.0-98.0); Mean Platelet Volume 9.8 fL (9.4-12.4); Platelet Count 317 X10*3/uL (160-400); Red Blood Count 5.94 X10*6/uL (4.60-5.80); Red Cell Distribution Width 13.4 % (11.0-16.0); White Blood Count 15.1 X10*3/uL (4.8-10.8)
[2024-03-30 05:23] LABS: Ammonia 70 umol/L (13-55)
[2024-03-30] MEDS: Lactated Ringers 500 ML 999 ML IV (05:27)
[2024-03-30 05:33] LABS: Alanine Aminotransferase 106 U/L (0-40); Albumin Level 4.4 g/dL (3.5-5.0); Alkaline Phosphatase 424 U/L (39-117); Anion Gap 19 (12-20); Aspartate Amino Transferase 51 U/L (5-37); Bilirubin Direct 0.7 mg/dL (0.0-0.5); Bilirubin Total 1.9 mg/dL (0.0-1.0); Blood Urea Nitrogen 21 mg/dL (9-16); Calcium 10.7 mg/dL (8.4-10.2); Carbon Dioxide 21 mmol/L (22-29); Chloride 105 mmol/L (96-108); Creatinine Clr Calc Pharmacy 86.4; Estimated Glomerular Filt Rate > 60; Glucose Fasting 186 mg/dL (60-99); Magnesium 2.3 mg/dL (1.6-2.6); Potassium 4.1 mmol/L (3.3-5.1); Sodium 141 mmol/L (135-145); Total Protein 8.5 g/dL (6.5-8.0)
[2024-03-30] MEDS: vancomycin HCL 1,500 MG in 0.9 % Sodium Chloride 500 ML 333.33 MG IV (06:15)
[2024-03-30 07:10] LABS: Lipase 11 U/L (8-78)
--- NOTE | 2024-03-30 07:15 | PHA.PROG ---
Admission Date/Time: March 28, 2024 15:58 Indication: Bacteremia Weight in k.328 kg Adjusted body weight in Kg: [place] body weight in Kg: Obesity Dosing Indication % IBW: BMI 22.8 Serum Creatinine - Last 168 Hours 03/28/24 03/29/24 03/30/24 10:30 06:47 05:07 Creatinine 0.80 0.63 0.98 Estimated CrCl and GFR - Last 168 Hours 03/28/24 03/29/24 03/30/24 10:30 06:47 05:07 Estim Creat Clear Calc 105.8 134.4 86.4 Estimated GFR > 60 > 60 > 60 Vancomycin Loading Dose: 1500 X1 Current Vancomycin Dosing Regimen: 500 Q8H Vancomycin Monitoring using AUC goal of 400 - 600 range with trough as surrogate marker: 423 Date and Time for next Vancomycin Level to be drawn: 03/31 @0600 Pharmacist Comments on Vancomycin Plan: Patient's renal function is stable thus far, BMI is 22.8, dosing 500 Q8H, predicted trough 14.2. Vancomycin dosing will take advantage of [employer] as a clinical decision support tool that uses Bayesian modeling to calculate individual patient's pharmacokinetic parameters and forecast the patient's drug concentration time course with the target goal AUC 24 range of 400 - 600 mg/L/hr.
[2024-03-30] MEDS: Lactated Ringers 1,000 ML 125 ML IVCONT (08:08)
[2024-03-30] MEDS: 0.9 % Sodium Chloride Flush 3 ML SYRINGE IVFLUSH ×3 (08:08→20:27)
[2024-03-30 08:23] LABS: Lactic Acid 2.7 mmol/L (0.5-2.0)
--- NOTE | 2024-03-30 09:38 | HO.PM.IMPN ---
Subjective Subjective Date of Service: 03/30/24 Interval History: abd distension, n/v billous fluid, sob, abd pain Physical Exam Vital Signs: Vital Signs: Last Vital Signs Temp 97.4 F 03/30/24 07:09 Pulse 131 H 03/30/24 07:09 Resp 18 03/30/24 07:09 BP 117/85 03/30/24 07:09 Pulse Ox 93 03/30/24 07:09 O2 Del Method Nasal Cannula 03/30/24 07:09 O2 Flow Rate 1 03/30/24 07:09 BMI result Body Mass Index 22.8 alert oriented times 3, ill appearing, in distress, tachypneic, abd distended, billous vomit at bedside lungs clear, heart rapid, regular, Objective Data Active Medications Acetaminophen (Acetaminophen 325 Mg Tablet) 650 mg PO Q6H PRN PRN Reason: Pain, Mild (Pain Scale 1-3) Benzonatate (Benzonatate 100 Mg Capsule) 100 mg PO TID PRN PRN Reason: Cough Docusate Sodium (Docusate Sodium 100 Mg Capsule) 100 mg PO DAILY PRN PRN Reason: Constipation Enoxaparin Sodium (Enoxaparin Sodium 40 Mg/0.4 Ml Syringe) 40 mg SUBCUT Q24H [facility] Last Admin: 03/29/24 15:11 Dose: 40 mg Documented By: BASILIO Lactated Ringer's (Lr) 1,000 mls @ 125 mls/hr IVCONT .Q8H [facility] Last Admin: 03/30/24 08:08 Dose: 125 mls/hr Documented By: ROCIO Vancomycin HCl 500 mg/ Sodium (Chloride) 110 mls @ 110 mls/hr IV Q8H [facility] Lactulose (Lactulose 20 Gm/30 Ml Solution) 30 gm PO TID [facility] Last Admin: 03/30/24 07:51 Dose: Not Given Documented By: ROCIO Non-Admin Reason: NPO Melatonin (Melatonin 3 Mg Tablet) 6 mg PO BEDTIME PRN PRN Reason: Insomnia Morphine Sulfate (Morphine Sulfate 4 Mg/Ml Cartridge) 4 mg IVPUSH Q4H PRN; Protocol PRN Reason: Pain, Severe (Pain Scale 7-10) Last Admin: 03/29/24 21:19 Dose: 4 mg Documented By: GLENIS Multivitamins/Vitamin C (Multivitamin Tablet) 1 tab PO DAILY [facility] Last Admin: 03/30/24 07:51 Dose: Not Given Documented By: ROCIO Non-Admin Reason: NPO Ondansetron HCl (Ondansetron Hcl 4 Mg/2 Ml Vial) 4 mg IVPUSH Q8H PRN PRN Reason: Nausea and Vomiting Last Admin: 03/29/24 21:18 Dose: 4 mg Documented By: GLENIS Pantoprazole Sodium (Pantoprazole Sodium 40 Mg/10 Ml Vial) 40 mg IVPUSH BID@0630,1630 [facility] Pharmacy Consult (Consult Rx Vancomycin Dosing) 1 each MISCELLANE DAILY PRN PRN Reason: Consult order Prochlorperazine Edisylate (Prochlorperazine Edisylate 10 Mg/2 Ml Vial) 5 mg IVPUSH Q4H PRN PRN Reason: Nausea and Vomiting Last Admin: 03/30/24 04:20 Dose: 5 mg Documented By: GLENIS Sodium Chloride (0.9 % Sodium Chloride Flush 3 Ml Syringe) 3 ml IVFLUSH QSHIFT [facility] Last Admin: 03/30/24 08:08 Dose: 3 ml Documented By: ROCIO Labs 03/30/24 05:07 03/30/24 05:07 Labs: Laboratory Results - last 24 hr 03/30/24 03/30/24 03/30/24 04:25 05:07 07:57 MCV 88.6 MCH 30.8 MCHC 34.8 RDW 13.4 Plt Count 317 D MPV 9.8 Absolute Nucleated RBC 0.000 Nucleated RBC % (auto) 0.0 Anion Gap 19 Estim Creat Clear Calc 86.4 Estimated GFR > 60 Fasting Glucose 186 H Lactic Acid 2.7 H* Calcium 10.7 H D Magnesium 2.3 Total Bilirubin 1.9 H Direct Bilirubin 0.7 H AST 51 H ALT 106 H Alkaline Phosphatase 424 H Ammonia 70 H Total Protein 8.5 H Albumin 4.4 Lipase 11 Gastric Occult Blood POSITIVE Microbiology Microbiology Results: Microbiology 03/28/24 11:31 Blood Culture - Preliminary Blood - Venous Prelim: GPC Gram Stain only 03/28/24 Unknown Urine Culture - Preliminary Urine Catheterized - Straight Catheter No growth to date. 03/28/24 10:38 Blood Culture - Preliminary Blood - Venous Prelim: GPC Gram Stain only Assessment and Plan (1) Seizure: Status: Acute Plan 39M PMH ulcerative colitis, primary sclerosing cholangitis, osteoporosis presented with low back pain, had new onset seizure in ED, also noted to have new compression fractures, now with abd distension n/v, and bacteremia New onset seizure Neurology appreciated, likely due to hyper ammonia, recommend treating ammonia and no AEDs at this time, monitor Ulcerative colitis and PSC complicated by hyper ammonia Continue lactulose, monitor Ursodiol, mesalamine abd distnesion, n/v npo possible SBO, follow up ct, NGT placed, surgery eval gram positive bacteremia ?source, no sepsis, vanc, follow up ID and repeat cultures Back pain due to acute compression fractures of L2 and L5 due to osteoporosis PT appreciated plan for acute rehab Pain control DVT prophylaxis Lovenox Full Code reason for continued hospitalization: Treating hyper ammonia, obstructed Quality Stroke Does the patient have a stroke diagnosis?: No VTE Prior VTE?: No VTE Risk Level:: Medical - moderate - high VTE Device Contraindication: Treatment Not Indicated VTE Drug Contraindication: N/A - Med Ordered
[2024-03-30 09:59] LABS: Reflex Lactate? Lactic Acid Added
[2024-03-30] MEDS: iohexoL 350 MG/ML 100 ML INFUS..BTL IV (10:13)
[2024-03-30 10:44] LABS: ~Lactic Acid-LAB USE ONLY 2.9 mmol/L (0.5-2.0)
[2024-03-30 10:56] LABS: Cancel Lactic Acid Canceled
[2024-03-30] MEDS: Lactated Ringers 1,000 ML 999 ML IV (11:53)
[2024-03-30] MEDS: Mineral OiL enema 133 ML ENEMA PR ×2 (13:30→16:07)
--- NOTE | 2024-03-30 13:38 | P.CONGS_ITS ---
History of Present Illness Consult details Consult date: 03/30/24 Requesting physician: Tay Anthony Narrative: The patient is a 39-year-old male with multiple medical issues such as primary sclerosing cholangitis ulcerative colitis who came into the emergency room yesterday complaining of back pain and in the ER was noted to be having seizures. He was brought to the ER rooms and treated for these seizures and workup then revealed compression fractures of L2-L3. Overnight the patient started having nausea vomiting abdominal distention. His abdomen became considerably distended and then secondarily to this he started having tachypnea. CT scan of the abdomen and pelvis was done without p.o. contrast and revealed extensive distention of the small bowel and some colon segment as well. Patient has ulcerative colitis and is followed by Dr. Eagle as an outpatient. He had a colonoscopy last year in 2022 which did not reveal any obstructive masses or any active significant colitis at that point in time. Patient has been having bowel movements but can not remember what it was last time had 1. He does agree that he is feeling more constipated now denies having constipation regularly. Surgical consult was carried out in order to assist in has abdominal distention. In addition he is noted to have an increasing white blood count and blood cultures were positive for mismatch bacteria Review of Systems 2 Review of Systems: Yes all other systems are reviewed and are negative PMFSH Past Medical History Medical History Ulcerative colitis Primary sclerosing cholangitis Surgical History Surgical History History of hand surgery H/O right inguinal hernia repair H/O colonoscopy Social History Social History Household Members: Family Household Members Other:: Parents. Housing: House Do you presently have visiting nurse or other home services: No Patient Tobacco Use Status: Never used Tobacco service: No Meds Allergies Allergy/AdvReac Type Severity Reaction Status Date / Time No Known Allergies Allergy Verified 03/28/24 09:09 Active Medications: Current Medications Acetaminophen (Acetaminophen 325 Mg Tablet) 650 mg PO Q6H PRN PRN Reason: Pain, Mild (Pain Scale 1-3) Benzonatate (Benzonatate 100 Mg Capsule) 100 mg PO TID PRN PRN Reason: Cough Docusate Sodium (Docusate Sodium 100 Mg Capsule) 100 mg PO DAILY PRN PRN Reason: Constipation Enoxaparin Sodium (Enoxaparin Sodium 40 Mg/0.4 Ml Syringe) 40 mg SUBCUT Q24H [facility], [facility] Last Admin: 03/29/24 15:11 Dose: 40 mg Lactated Ringer's (Lr) 1,000 mls @ 125 mls/hr IVCONT .Q8H [facility] Last Infusion: 03/30/24 12:06 Dose: 0 mls/hr Vancomycin HCl 500 mg/ Sodium (Chloride) 110 mls @ 110 mls/hr IV Q8H [facility] Lactulose (Lactulose 20 Gm/30 Ml Solution) 30 gm PO TID [facility] Last Admin: 03/30/24 07:51 Dose: Not Given Melatonin (Melatonin 3 Mg Tablet) 6 mg PO BEDTIME PRN PRN Reason: Insomnia Mineral Oil (Mineral Oil Enema 133 Ml Enema) 133 ml IN Q1H PRN PRN Reason: Constipation Last Admin: 03/30/24 13:30 Dose: 133 ml Morphine Sulfate (Morphine Sulfate 4 Mg/Ml Cartridge) 4 mg IVPUSH Q4H PRN; Protocol PRN Reason: Pain, Severe (Pain Scale 7-10) Last Admin: 03/29/24 21:19 Dose: 4 mg Multivitamins/Vitamin C (Multivitamin Tablet) 1 tab PO DAILY [facility] Last Admin: 03/30/24 07:51 Dose: Not Given Ondansetron HCl (Ondansetron Hcl 4 Mg/2 Ml Vial) 4 mg IVPUSH Q8H PRN PRN Reason: Nausea and Vomiting Last Admin: 03/29/24 21:18 Dose: 4 mg Pantoprazole Sodium (Pantoprazole Sodium 40 Mg/10 Ml Vial) 40 mg IVPUSH BID@0630,1630 [facility] Pharmacy Consult (Consult Rx Vancomycin Dosing) 1 each MISCELLANE DAILY PRN PRN Reason: Consult order Prochlorperazine Edisylate (Prochlorperazine Edisylate 10 Mg/2 Ml Vial) 5 mg IVPUSH Q4H PRN PRN Reason: Nausea and Vomiting Last Admin: 03/30/24 04:20 Dose: 5 mg Sodium Chloride (0.9 % Sodium Chloride Flush 3 Ml Syringe) 3 ml IVFLUSH QSHIFT [facility] Last Admin: 03/30/24 08:08 Dose: 3 ml Home Medications ?Medication ?Instructions ?Recorded ?Confirmed ?Last Taken ?Type mesalamine 1.2 gram tablet,delayed 2.4 g PO DAILY 12/09/22 03/28/24 03/28/24 History release (Lialda) ursodiol 250 mg tablet 250 mg PO QID 12/09/22 03/28/24 03/28/24 History multivitamin 1 tab PO DAILY 03/28/24 03/28/24 Unknown History Physical Exam 2 Vital Signs: Vital Signs: Last Vital Signs Temp 97.6 F 03/30/24 11:06 Pulse 132 H 03/30/24 11:06 Resp 18 03/30/24 11:06 BP 137/88 03/30/24 11:06 Pulse Ox 96 03/30/24 11:06 O2 Del Method Room Air 03/30/24 11:06 O2 Flow Rate 1 03/30/24 07:09 BMI result Body Mass Index 22.8 Const: General: cooperative and acute distress (Moderate) moderate O rientation/consciousness: patient oriented x3 Cardio: Rate: tachycardic Rhythm: regular rhythm GI: Other: Abdomen is significantly distended it is firm he does have some bowel sounds mildly tender to deep palpation no palpable masses were noted Skin: Other: Nonicteric Neuro: General: patient oriented x3 Psych: Affect: Anxious affect present Results Labs 03/30/24 05:07 03/30/24 05:07 Labs: Abnormal lab results 03/30/24 03/30/24 03/30/24 Range/Units 05:07 07:57 10:20 WBC 15.1 H (4.8-10.8) X10*3/uL RBC 5.94 H D (4.60-5.80) X10*6/uL Hgb 18.3 H D (14.0-18.0) g/dl Hct 52.6 H (42.0-52.0) % Carbon Dioxide 21 L (22-29) mmol/L BUN 21 H (9-16) mg/dL Fasting Glucose 186 H (60-99) mg/dL Lactic Acid 2.7 H* (0.5-2.0) mmol/L Lactic Acid F/U @ 2Hr 2.9 H* (0.5-2.0) mmol/L Calcium 10.7 H D (8.4-10.2) mg/dL Total Bilirubin 1.9 H (0.0-1.0) mg/dL Direct Bilirubin 0.7 H (0.0-0.5) mg/dL AST 51 H (5-37) U/L ALT 106 H (0-40) U/L Alkaline Phosphatase 424 H (39-117) U/L Ammonia 70 H (13-55) umol/L Total Protein 8.5 H (6.5-8.0) g/dL Short CBC 03/30/24 Range/Units 05:07 WBC 15.1 H (4.8-10.8) X10*3/uL Hgb 18.3 H D (14.0-18.0) g/dl Hct 52.6 H (42.0-52.0) % Plt Count 317 D (160-400) X10*3/uL BMP 03/30/24 05:07 Sodium 141 Potassium 4.1 Chloride 105 Carbon Dioxide 21 L BUN 21 H Creatinine 0.98 Calcium 10.7 H D Liver Function 03/30/24 Range/Units 05:07 Total Bilirubin 1.9 H (0.0-1.0) mg/dL Direct Bilirubin 0.7 H (0.0-0.5) mg/dL AST 51 H (5-37) U/L ALT 106 H (0-40) U/L Alkaline Phosphatase 424 H (39-117) U/L Albumin 4.4 (3.5-5.0) g/dL Urine 03/28/24 Range/Units 11:31 Urine Color Dark Yellow Urine Appearance Clear Urine pH 6.0 (5.0-9.0) Ur Specific [place] >= 1.030 H (1.005-1.025) Urine Protein 30 (1+) H (Neg-Trace) mg/dL Urine Glucose (UA) Negative (Negative) mg/dL All other labs normal. Imaging Abdomen CT scan report/results: report reviewed and image reviewed CT scan - pelvis: report reviewed and image reviewed Additional studies: AMINATION: CT ABDOMEN AND PELVIS WITH CONTRAST CLINICAL INFORMATION: Severe abdominal distention COMPARISON: Ultrasound abdomen dated 03/28/2024 TECHNIQUE: Multidetector volumetric images were obtained from the superior aspect of the liver through the pubic symphysis following administration 85 mL of Omnipaque 350 intravenous contrast. Sagittal and coronal reformatted images were obtained on the technologist's workstation. Oral contrast: No This CT examination was performed using dose optimization techniques as appropriate, variously including the following: *Automated exposure control *Adjustment of mA and/or kV according to patient size (this includes techniques or standardized protocols for targeted exams where dose is matched to indication/reason for exam; i.e. extremities or head) *Use of iterative reconstruction technique DLP: 512 mGy-cm FINDINGS: LUNG BASES: Bibasilar infiltrates or consolidations and small bibasilar effusions. LIVER, GALLBLADDER, AND BILIARY TREE: Slight periportal edema. There is a history of sclerosing cholangitis in this patient. No suspicious mass or intrahepatic biliary dilatation. The gallbladder is unremarkable with no evidence of radiopaque gallstones, gallbladder wall thickening, or obvious pericholecystic inflammatory changes. PANCREAS: Unremarkable. SPLEEN: Unremarkable. ADRENAL GLANDS: Unremarkable. KIDNEYS AND URETERS: No suspicious mass or calcification, hydronephrosis, or perinephric collection. There is a small cyst upper right kidney at 6 mm, and a small cyst medial inferior left kidney at 9 mm. No further workup needed. BLADDER: Unremarkable. GASTROINTESTINAL TRACT: Abnormal. There is extensive distention of the small bowel loops which are fluid-filled. There is a large volume of stool within the colon. The colon is diffusely distended as well. Is the patient on pain medication? There may be trace fluid surrounding the cecum. I do not see any drainable collections or obstructing masses or causes of an acute obstruction other than the large volume of stool within the rectum. The appendix is not identified. ABDOMINAL WALL: No significant ventral hernia noted. There are surgical sutures overlying the right inguinal region. No evidence for recurrent inguinal hernia although some bowel loops extending towards the left inguinal region. LYMPH NODES: Normal. VASCULAR: Unremarkable. PELVIC VISCERA: Unremarkable. OSSEOUS STRUCTURES: There are moderate compression deformities observed, L2, L4, L5 and post vertebral plasty changes observed T10, and T11. CT/CT abdomen pelvis w IV con IMPRESSION: Severe diffuse enteric distention without a focal area of obstruction. Prominence to the portal triads possibly reflective of edema was noted on a recent ultrasound as well. Fleischner guidelines were followed. Assessment and Plan (1) Ileus: Status: Acute Plan 39-year-old male with abdominal distention admitted for seizures and pain control left lumbar fractures with baseline primary sclerosing cholangitis and ulcerative colitis and osteoporosis-patient does not have a true obstruction but this is most likely just an ileus pattern secondary to maybe immobility his lumbar fractures as well as pain medication to control please new fractures. NG tube had been placed but the patient did not tolerate this well and the nursing staff said that not much material came out of the NG. As a result it was removed. He has been given a IV fluid bolus and improving urinary output as noted. An enema has just been carried out. At this point there is no indication for any surgical exploration but would agree to hold narcotics pain consult to see if an epidural may help us has pain from his fractures. If he continues to vomit or his abdomen continues to be distended consider reinsertion of the NG tube. I think that despite much liquid coming through the NG tube does help decompression of the air and his GI tract which is causing some of this distention. In addition correct electrolytes IV fluid boluses to improve dehydration. Medical team to follow-up with the positive blood cultures and antibiotics. GI team to follow through with the ulcerative colitis issues and primary sclerosing cholangitis. LFTs have though been trending to normal values. We will continue to follow from a surgical perspective. Would encourage trying to get a bowel movement from below and then hopefully this will allow the small bowel to empty more efficiently and effectively into the colon and increase GI motility. Ideally it would be great to get him up and ambulating however was has spinal fractures will discuss with Orthopedic surgery her best to talk called this. I am concerned that wearing a brace would be more restrictive Cruz abdomen and unfortunately be a hindrance to good respiratory efforts.: Procedures Date of Service Date of Service: 03/30/24
--- NOTE | 2024-03-30 13:40 | PC.NURSE ---
Per NG tube to be inserted. NG tube placed at 0800 in the [place], patient tolerated well and bile drained from tube. Patient to be sent to check for placement before using.
--- NOTE | 2024-03-30 13:44 | PC.NURSE ---
NG tube placement verified and tube able to be used per MD. NG tube turned on to suction with minimal output. Patient states that he no longer wants tube in and wants to eat. Per MD try patient on clear liquids and take out tube if patient unable to tolerate. Tube taken out at 1300 and patient tolerated well. Patient states that he has decreased nausea and abdomen is softer less distended.
--- NOTE | 2024-03-30 14:12 | P.CNID_ITS ---
History of Present Illness Data of Consult Service Date: 03/30/24 Requesting physician: Tay Anthony Primary Care Provider: Alfonso Sierra MD [facility] Reason for consult: bacteremia He presents with weakness and fatigue. He had kyphoplasty on 02/04. He also had seizure and hadnt had one since childhood and seen by Neurology. He has no trouble with walking coordination or bowel or bladder issues. CT LS /TSpine shows compression fractures and no abscess and patient says he cant have MRI. [facility] Past Medical History Medical History (Updated 03/30/24 @ 14:17 by Gabriela Storey MD) Bacteremia Ulcerative colitis Primary sclerosing cholangitis Family History Family history: reviewed and not pertinent Surgical History Surgical History History of hand surgery H/O right inguinal hernia repair H/O colonoscopy Social History Social History Household Members: Family Household Members Other:: Parents. Housing: House Do you presently have visiting nurse or other home services: No Patient Tobacco Use Status: Never used Tobacco service: No Meds Allergies Allergy/AdvReac Type Severity Reaction Status Date / Time No Known Allergies Allergy Verified 03/28/24 09:09 Active Medications: Current Medications Acetaminophen (Acetaminophen 325 Mg Tablet) 650 mg PO Q6H PRN PRN Reason: Pain, Mild (Pain Scale 1-3) Benzonatate (Benzonatate 100 Mg Capsule) 100 mg PO TID PRN PRN Reason: Cough Docusate Sodium (Docusate Sodium 100 Mg Capsule) 100 mg PO DAILY PRN PRN Reason: Constipation Enoxaparin Sodium (Enoxaparin Sodium 40 Mg/0.4 Ml Syringe) 40 mg SUBCUT Q24H [facility] Last Admin: 03/29/24 15:11 Dose: 40 mg Lactated Ringer's (Lr) 1,000 mls @ 125 mls/hr IVCONT .Q8H [facility] Last Infusion: 03/30/24 12:06 Dose: 0 mls/hr Vancomycin HCl 500 mg/ Sodium (Chloride) 110 mls @ 110 mls/hr IV Q8H [facility] Lactulose (Lactulose 20 Gm/30 Ml Solution) 30 gm PO TID [facility] Last Admin: 03/30/24 07:51 Dose: Not Given Melatonin (Melatonin 3 Mg Tablet) 6 mg PO BEDTIME PRN PRN Reason: Insomnia Mineral Oil (Mineral Oil Enema 133 Ml Enema) 133 ml MS Q1H PRN PRN Reason: Constipation Last Admin: 03/30/24 13:30 Dose: 133 ml Morphine Sulfate (Morphine Sulfate 4 Mg/Ml Cartridge) 4 mg IVPUSH Q4H PRN; Protocol PRN Reason: Pain, Severe (Pain Scale 7-10) Last Admin: 03/29/24 21:19 Dose: 4 mg Multivitamins/Vitamin C (Multivitamin Tablet) 1 tab PO DAILY [facility] Last Admin: 03/30/24 07:51 Dose: Not Given Ondansetron HCl (Ondansetron Hcl 4 Mg/2 Ml Vial) 4 mg IVPUSH Q8H PRN PRN Reason: Nausea and Vomiting Last Admin: 03/29/24 21:18 Dose: 4 mg Pantoprazole Sodium (Pantoprazole Sodium 40 Mg/10 Ml Vial) 40 mg IVPUSH BID@0630,1630 [facility] Pharmacy Consult (Consult Rx Vancomycin Dosing) 1 each MISCELLANE DAILY PRN PRN Reason: Consult order Prochlorperazine Edisylate (Prochlorperazine Edisylate 10 Mg/2 Ml Vial) 5 mg IVPUSH Q4H PRN PRN Reason: Nausea and Vomiting Last Admin: 03/30/24 04:20 Dose: 5 mg Sodium Chloride (0.9 % Sodium Chloride Flush 3 Ml Syringe) 3 ml IVFLUSH [facility] Last Admin: 03/30/24 08:08 Dose: 3 ml Home Medications ?Medication ?Instructions ?Recorded ?Confirmed ?Last Taken ?Type mesalamine 1.2 gram tablet,delayed 2.4 g PO DAILY 12/09/22 03/28/24 03/28/24 History release (Lialda) ursodiol 250 mg tablet 250 mg PO QID 12/09/22 03/28/24 03/28/24 History multivitamin 1 tab PO DAILY 03/28/24 03/28/24 Unknown History Physical Exam 2 Vital Signs: Vital Signs: Last Vital Signs Temp 97.6 F 03/30/24 11:06 Pulse 132 H 03/30/24 11:06 Resp 18 03/30/24 11:06 BP 137/88 03/30/24 11:06 Pulse Ox 96 03/30/24 11:06 O2 Del Method Room Air 03/30/24 11:06 O2 Flow Rate 1 03/30/24 07:09 BMI result Body Mass Index 22.8 Const: General: cooperative HEENT: Head: Yes normal to inspection Face and sinus: Yes normal facial exam Mouth: Normal oral and palatal mucosa present Teeth and gingiva: d entition normal Eyes: General: appearance normal, both eyes and all related structures P upils: Equal, round and reactive pupils present Resp: Effort & Inspection: normal respiratory effort Cardio: Rate: regular rate Rhythm: regular rhythm GI: Palpation (GI): Soft to palpation and nontender : General: Yes no CVA tenderness Back/Spine/Pelvis: Back: no CVA tenderness Skin: General skin exam: no rashes or lesions noted Neuro: General: moves all extremities Cranial nerves: Yes Equal, round and reactive pupils present Extrem: General: Yes normal to inspection Psych: Appearance: grossly normal Results Labs 03/30/24 05:07 03/30/24 05:07 Labs: Short CBC 03/30/24 Range/Units 05:07 WBC 15.1 H (4.8-10.8) X10*3/uL Hgb 18.3 H D (14.0-18.0) g/dl Hct 52.6 H (42.0-52.0) % Plt Count 317 D (160-400) X10*3/uL BMP 03/30/24 05:07 Sodium 141 Potassium 4.1 Chloride 105 Carbon Dioxide 21 L BUN 21 H Creatinine 0.98 Calcium 10.7 H D Liver Function 03/30/24 Range/Units 05:07 Total Bilirubin 1.9 H (0.0-1.0) mg/dL Direct Bilirubin 0.7 H (0.0-0.5) mg/dL AST 51 H (5-37) U/L ALT 106 H (0-40) U/L Alkaline Phosphatase 424 H (39-117) U/L Albumin 4.4 (3.5-5.0) g/dL Microbiology Microbiology Results: Microbiology 03/28/24 10:38 Blood - Venous Blood Culture - Preliminary Staphylococcus species 03/28/24 Unknown Urine Catheterized - Straight Catheter Urine Culture - Final No growth. 03/28/24 11:31 Blood - Venous Blood Culture - Preliminary Prelim: GPC Gram Stain only Assessment and Plan (1) Ileus: Status: Acute (2) Seizure: Status: Acute (3) Collapsed vertebra, not elsewhere classified, site unspecified, initial encounter for fracture: Status: Acute (4) Bacteremia: Status: Acute Plan There is concern over two types of gram positive bacteremia one or both may be contaminant Continue Vancomycin for now Await cultures Have Dr Gan see patient postop ,r/o infection Echo if not contaminant blood
--- NOTE | 2024-03-30 14:36 | MHC.CM.PN ---
Pt rec acute rehab, referrals sent today, requesting OT, will await update PT note to see if pt participates in therapy.
--- NOTE | 2024-03-30 15:22 | CONS_ITS ---
DATE OF SERVICE: 03/30/2024 REFERRING PHYSICIAN: Maritza Cruz MD REASON FOR CONSULTATION: History of ulcerative colitis, coffee-ground vomiting, abdominal distention. HISTORY OF PRESENT ILLNESS: The patient is a pleasant 39-year-old man with a longstanding history of ulcerative colitis and primary sclerosing cholangitis, who was admitted to the hospital on March 28 after presenting to the emergency department with back pain and a seizure. He was evaluated in the emergency department after awakening the morning of admission with low back pain and in the emergency department, he experienced seizure activity in the waiting room. This was treated with midazolam with improvement. During his evaluation, he underwent laboratory studies showing elevation of his liver function tests and CT scanning was subsequently obtained, which is reviewed and is interpreted as showing diffuse enteric distention without a focal area of obstruction. Imaging studies have also shown changes consistent with his sclerosing cholangitis. He last underwent colonoscopy because of his history of ulcerative colitis in December 2022, which showed some mild focal colitis endoscopically. Biopsies at that time showed no active colitis. He continues on mesalamine and Ursodiol for his underlying GI issues. PAST MEDICAL HISTORY: 1. Ulcer colitis. 2. Sclerosing cholangitis. 3. Osteoporosis with vertebral collapse. CURRENT MEDICATIONS: Current medication list is reviewed in the chart. ALLERGIES: THERE ARE NONE REPORTED. FAMILY HISTORY: This is reviewed with the patient and is noncontributory. SOCIAL HISTORY: Javi works with [employer] in [place]. There is no substance abuse. REVIEW OF SYSTEMS: SKIN: No pruritus. HEENT: Negative. CARDIOPULMONARY: No shortness of breath or chest pain. GASTROINTESTINAL: As above. GENITOURINARY: Negative. NEUROPSYCHIATRIC: Negative. PHYSICAL EXAMINATION: GENERAL: Shows a pleasant male, lying in bed. He denies abdominal pain. VITAL SIGNS: Stable. He is tachycardic. SKIN: Shows no lesions. HEENT: Unremarkable. NECK: Without lymphadenopathy. LUNGS: Clear. HEART: Shows tachycardia without a murmur. ABDOMEN: Distended. There is no focal tenderness to palpation. Bowel sounds are present, but diminished. No organomegaly is noted. EXTREMITIES: Without edema. DIAGNOSTIC DATA: Laboratory data and CT scanning are reviewed as above. IMPRESSION: 1. Ulcerative colitis. 2. Primary sclerosing cholangitis. He does not appear to have obstruction by imaging. Surgical consultation has been obtained. He may benefit from an enema administration to along in terms of getting his bowels to move. I would continue his outpatient medications when he is able to take p.o. Thanks for asking me to see him. I will follow him in the hospital with you. MD GISEL Garcia/PJ / [phone]
[2024-03-30] MEDS: Pantoprazole Sodium 40 MG/10 ML VIAL IVPUSH (16:07)
[2024-03-30] MEDS: vancomycin HCL 500 MG in 0.9 % Sodium Chloride 100 ML 110 MG IV (16:07)
[2024-03-30] MEDS: Lactulose 20 GM/30 ML SOLUTION 30 GM PO ×2 (16:07→20:26)
[2024-03-30] MEDS: Morphine Sulfate 4 MG/ML CARTRIDGE IVPUSH ×2 (17:50→21:52)
[2024-03-30] MEDS: methocarbamoL 750 MG TABLET PO (20:54)
[2024-03-30] MEDS: Melatonin 3 MG TABLET 6 MG PO (20:54)
[2024-03-30] MEDS: Furosemide 40 MG/4 ML VIAL IVPUSH (23:56)
[2024-03-31] VITALS (11 sets, daily range): BP systolic 114–140; BP diastolic 82–99; PULSE 105–135; RESP 18–20; TEMP 36.2–36.6; O2SAT 89–94
[2024-03-31 00:27] LABS: Basophils Percent Auto 0.1 % (0-2); Eosinophils Percent Auto 0.1 % (0-4); Hematocrit 50.3 % (42.0-52.0); Hemoglobin 17.5 g/dl (14.0-18.0); Imm Gran Abs Auto 0.06 X10*3/uL (0.00-0.03); Imm Gran Pct Auto 0.4 % (0.0-0.4); Lymphocytes Absolute Auto 0.9 X10*3/uL (1.2-4.9); Lymphocytes Percent Auto 6.1 % (20-40); MANUAL DIFF FLAG NO; Mean Corpuscular HGB Conc 34.8 g/dl (31.0-36.0); Mean Corpuscular Hemoglobin 30.9 pg (27.0-33.0); Mean Corpuscular Volume 88.7 fL (80.0-98.0); Mean Platelet Volume 10.3 fL (9.4-12.4); Monocytes Absolute Auto 1.1 X10*3/uL (0.1-1.2); Monocytes Percent Auto 7.9 % (2-11); Neutrophils Percent Auto 85.4 % (45-73); Platelet Count 305 X10*3/uL (160-400); Red Blood Count 5.67 X10*6/uL (4.60-5.80); Red Cell Distribution Width 13.6 % (11.0-16.0)
[2024-03-31 00:33] LABS: VBG Base Excess 1.8 mmol/L; VBG HCO3 26 mmol/L (22-26); VBG pCO2 42 mmHg; VBG pO2 46 mmHg
[2024-03-31 00:45] LABS: Alanine Aminotransferase 83 U/L (0-40); Albumin Level 4.1 g/dL (3.5-5.0); Alkaline Phosphatase 341 U/L (39-117); Anion Gap 16 (12-20); Aspartate Amino Transferase 58 U/L (5-37); Bilirubin Total 1.8 mg/dL (0.0-1.0); Blood Urea Nitrogen 37 mg/dL (9-16); Calcium 10.5 mg/dL (8.4-10.2); Carbon Dioxide 25 mmol/L (22-29); Chloride 104 mmol/L (96-108); Creatinine Clr Calc Pharmacy 65.6; Estimated Glomerular Filt Rate > 60; Glucose Random 169 mg/dL (60-115); Magnesium 2.4 mg/dL (1.6-2.6); Phosphorus 4.1 mg/dL (2.7-4.5); Potassium 4.3 mmol/L (3.3-5.1); Sodium 141 mmol/L (135-145)
[2024-03-31 00:49] LABS: Troponin-I High Sensitivity 59.9 ng/L (<3.5-35.0)
[2024-03-31 00:52] LABS: Venous Blood Gas Refer to POC result
[2024-03-31 00:57] LABS: Lactic Acid 2.7 mmol/L (0.5-2.0)
[2024-03-31] MEDS: vancomycin HCL 500 MG in 0.9 % Sodium Chloride 100 ML 110 MG IV (00:58)
[2024-03-31 01:03] LABS: TSH reflex Free T4 1.47 uIU/mL (0.32-4.0)
[2024-03-31 01:53] LABS: B Type Natriuretic Peptide 224 pg/mL (<100)
[2024-03-31 02:23] LABS: Reflex Lactate? Lactic Acid Added
[2024-03-31 03:13] LABS: ~Lactic Acid-LAB USE ONLY 2.3 mmol/L (0.5-2.0)
[2024-03-31] MEDS: Metoprolol Tartrate 5 MG/5 ML VIAL IVPUSH ×4 (03:46→21:24)
[2024-03-31 04:46] LABS: Reflex Lactate? 2 Y
[2024-03-31] MEDS: Pantoprazole Sodium 40 MG/10 ML VIAL IVPUSH ×2 (06:58→15:05)
[2024-03-31] MEDS: Lactated Ringers 1,000 ML 80 ML IVCONT ×2 (06:59→15:05)
--- NOTE | 2024-03-31 07:00 | CA_ITS ---
Transthoracic Echocardiogram Patient (Last, First, Middle): Javi Smith D Gender: Male Date of : 1985 Age: 39 Procedure Date: 03/31/2024 Procedure Type: Transthoracic E[place]ocardiogram [place] [facility] [place]: 162.56 cm Weight: 60.33 kg BSA: 1.64 m2 Heart Rate: 105 bpm BP: 116 / 99 mmHg Floor Renovator: SB Referring MD: Tay Anthony MD Symptoms: pulm edema, cardiomegaly Study Quality: Fair ECG Rhythm: Tachycardia Conclusions: - The left ventricular systolic function is normal. The visually estimated ejection fraction is between 65-70%. - There is mild thickening of the aortic valve. - There is mild anterior mitral leaflet thickening. - No obvious valvular pathology seen on this study. Findings Left Ventricle Normal left ventricular cavity size. The left ventricular systolic function is normal. The visually estimated ejection fraction is between 65-70%. There is no evidence of regional wall motion abnormalities. Diastolic function is indeterminate on the basis of available data. There is mild septal asymmetric hypertrophy. Right Ventricle Normal right ventricular cavity size and systolic function. Atria The left atrium is normal in size. The right atrium was not well visualized. Aortic Valve There is a normal trileaflet aortic valve. There is mild thickening of the aortic valve. There is no aortic valve stenosis. There is no aortic valve regurgitation. Mitral Valve There is mild anterior mitral leaflet thickening. There is trace mitral valve regurgitation. There is no mitral valve stenosis. Pulmonic Valve The pulmonic valve is likely normal. Tricuspid Valve There is no tricuspid valve regurgitation. Tricuspid regurgitation envelope is inadequate for calculation of right ventricular systolic pressure. Great Vessels The sinuses of valsalva, sino tubular ridge, and aortic arch are normal in size. Venous The inferior vena cava was not well visualized. Pericardium/Pleural There is a small loculated pericardial effusion overlying the left ventricle. Prior Study Comparison No prior study available for comparison. Recommendations, Care & Conclusions No obvious valvular pathology seen on this study. Measurements M-Mode Liner Measurements Normals - Women/Men IVSd: 1.40 0.6-0.9/0.6-1.0 cm 2D Linear Measurements IVSd: 1.53 0.6-0.9/0.6-1.0 cm LVIDd: 3.64 3.9-5.3/4.2-5.9 cm LVIDd Index: 2.22 2.4-3.2/2.2-3.1 cm/m2 LVIDs: 2.78 2.0-3.6 cm LVPWd: 0.72 0.7-1.1 cm LA Diam: 2.50 2.7-3.8/3.0-4.0 cm LAIDs Index: 1.52 1.5-2.3 cm/m2 LV Mass: 162.14 67-162/88-224 g LV Mass Index: 98.86 43-95/49-115 g/m2 LVOT Diam: 2.20 3.0+(-)1.3 cm 2D Systolic Function EF 4C: 58.40 >55% EF 2C: 64.80 >55% EF BiP: 60.40 >55% Mitral Valve MV Pk E: 0.50 MV PK A: 0.70 MV Decel Time: 230.00 E/A: 0.70 E'Lateral: 6.96 E/E' Lat: 7.20 PHT: 67.00 MVA PHT: 3.28 Decel Cross: 2.19 Aortic Valve AoV Pk Keagan: 0.82 AoV Pk Grad: 3.00 LINDA: 3.38 LVOT LVOT Pk Keagan: 0.76 LVOT Mn Keagan: 0.55 LVOT VTI: 0.11 LVOT Pk Grad: 2.00 LVOT Mn Grad: 1.00 LVOT Diam: 2.20 LVOT Area: 3.80 Diastolic Function MV Pk E: 0.50 MV Pk A: 0.70 E/A: 0.70 E' Laterial: 6.96 E/E' Lat: 7.20 Right Ventricle TAPSE (mm): 15.20 Tricuspid Valve TV Pk Keagan: 1.69 TV Mn Keagan: 1.18 TV Pk Grad: 11.00 TV Mn Grad: 7.00 Great Vessels Aorta Sinus of Valsalva: 3.50 2.0-3.5 cm Ao Arch: 2.40 Pulmonary Valve PV Pk Keagan: 1.09 Peak PV Grad: 5.00 Updated in Other Vendor System with Status of Final Gustabo Brown MD electronically signed on 03/31/2024 5:38:19 PM with status of Final
[2024-03-31 07:04] LABS: Hemoglobin 17.7 g/dl (14.0-18.0); Mean Corpuscular HGB Conc 34.7 g/dl (31.0-36.0); Mean Corpuscular Hemoglobin 30.7 pg (27.0-33.0); Mean Corpuscular Volume 88.5 fL (80.0-98.0); Mean Platelet Volume 10.2 fL (9.4-12.4); Platelet Count 315 X10*3/uL (160-400); Red Blood Count 5.76 X10*6/uL (4.60-5.80); Red Cell Distribution Width 13.5 % (11.0-16.0); White Blood Count 15.1 X10*3/uL (4.8-10.8)
[2024-03-31 07:21] LABS: Alanine Aminotransferase 80 U/L (0-40); Albumin Level 4.2 g/dL (3.5-5.0); Alkaline Phosphatase 337 U/L (39-117); Anion Gap 18 (12-20); Aspartate Amino Transferase 63 U/L (5-37); Bilirubin Direct 0.7 mg/dL (0.0-0.5); Blood Urea Nitrogen 44 mg/dL (9-16); Calcium 10.7 mg/dL (8.4-10.2); Carbon Dioxide 24 mmol/L (22-29); Chloride 104 mmol/L (96-108); Creatinine Clr Calc Pharmacy 66.1; Estimated Glomerular Filt Rate > 60; Glucose Fasting 147 mg/dL (60-99); Magnesium 2.5 mg/dL (1.6-2.6); Potassium 4.5 mmol/L (3.3-5.1); Sodium 141 mmol/L (135-145); Total Protein 8.1 g/dL (6.5-8.0)
[2024-03-31 07:23] LABS: Ammonia 82 umol/L (13-55)
[2024-03-31 07:32] LABS: Vancomycin Random 15.9 mcg/mL (15-20)
[2024-03-31 07:36] LABS: ~Lactic Acid-LAB USE ONLY 2.2 mmol/L (0.5-2.0)
--- NOTE | 2024-03-31 07:42 | HE.PHANOTE ---
RE: vanco Trough on 03/31 came back good at 15.9; however patient's creatinine worsened. Changed dose to 750mg Q12H with less renal toxicity; predicted AUC of 539, trough of 17.5. Next level to be drawn 04/01 @1800
--- NOTE | 2024-03-31 07:47 | P.EN_ITS ---
Event Note Date of Service: 03/31/24 Event Note: 03/30/24 - 11:30 PM contacted by surgeon, Dr. Ramirez, asking if TSH has been checked as the pt has been quite tachycardic and expressed her concerns about the patient. . I did evaluate pt. Noted to be tachypneic. Denied shortness of breath, palpitation or abdominal pain. Persists having small episodes of bilious vomiting. Abdomen is quite distended, decreased breath sounds and nontender denies. Cardiopulmonary exam is remarkable for tachycardia, poor inspiratory effort and decreased breath sound. Labs were ordered stat including CBC, CMP, magnesium, phosphate, venous blood gas and lactic acid. Remarkable for leukocytosis. No electrolyte imbalances. TSH is normal. There is mild lactic acidosis that is improving. LFTs are still elevated but not significantly worse. Chart was reviewed. CXR was obtained in the afternoon showing vascular conge stion anemia. Furosemide was ordered. Despite having adequate diuresis patient had rate persistent elevated. Therapy with metoprolol IV started for tachycardia treatment and avoid cardiomyopathy. TTE was ordered. Also NG tube was placed by myself using topical lidocaine (very minimal quantity) for patient's comfort. He tolerated procedure well. NG tube was connected to intermittent suction. 5:15 AM - Restart IV fluids, gently. Will discontinue morphine to avoid worsening ileus and abdominal distention. Time Spent With Patient Time: Total time managing care of this patient today ____ minutes.
--- NOTE | 2024-03-31 08:29 | PM.PNGS ---
Subjective Subjective Date of Service: 04/01/24 Interval history: H and P reviewed still distended although pt says this is improved has some stool with enema yesterday ngt with high output denies abdl pain Physical Exam Vital Signs: Vital Signs: Last Vital Signs Temp 97.2 F 03/31/24 07:43 Pulse 120 H 03/31/24 07:43 Resp 18 03/31/24 07:43 BP 115/83 03/31/24 07:43 Pulse Ox 94 03/31/24 07:43 O2 Del Method Nasal Cannula 03/31/24 07:43 O2 Flow Rate 5 03/31/24 07:43 BMI result Body Mass Index 22.8 Const: Other: some SOB, jaundiced Resp: Other: some shortness of breath Cardio: Rate: tachycardic GI: Inspection: Yes distended Palpation (GI): not firm, no guarding and not rigid Objective Data Active Medications Acetaminophen (Acetaminophen 325 Mg Tablet) 650 mg PO Q6H PRN PRN Reason: Pain, Mild (Pain Scale 1-3) Benzonatate (Benzonatate 100 Mg Capsule) 100 mg PO TID PRN PRN Reason: Cough Docusate Sodium (Docusate Sodium 100 Mg Capsule) 100 mg PO DAILY PRN PRN Reason: Constipation Enoxaparin Sodium (Enoxaparin Sodium 40 Mg/0.4 Ml Syringe) 40 mg SUBCUT Q24H [facility] Last Admin: 03/29/24 15:11 Dose: 40 mg Documented By: BASILIO Furosemide (Furosemide 40 Mg/4 Ml Vial) 40 mg IVPUSH BID@0900,1800 [facility]; Protocol Last Admin: 03/30/24 23:56 Dose: 40 mg Documented By: ANTIONE Lactated Ringer's (Lr) 1,000 mls @ 80 mls/hr IVCONT .[id number] [facility] Last Admin: 03/31/24 06:59 Dose: 80 mls/hr Documented By: ANTIONE Vancomycin HCl 750 mg/ Sodium (Chloride) 265 mls @ 265 mls/hr IV Q12H [facility] Lactulose (Lactulose 20 Gm/30 Ml Solution) 30 gm PO TID [facility] Last Admin: 03/31/24 08:13 Dose: Not Given Documented By: ROCIO Non-Admin Reason: Hold per Melatonin (Melatonin 3 Mg Tablet) 6 mg PO BEDTIME PRN PRN Reason: Insomnia Last Admin: 03/30/24 20:54 Dose: 6 mg Documented By: ANTIONE Methocarbamol (Methocarbamol 750 Mg Tablet) 750 mg PO TID [facility] Last Admin: 03/31/24 08:13 Dose: Not Given Documented By: ROCIO Non-Admin Reason: Hold per Metoprolol Tartrate (Metoprolol Tartrate 5 Mg/5 Ml Vial) 5 mg IVPUSH Q6H [facility]; Protocol Last Admin: 03/31/24 03:46 Dose: 5 mg Documented By: ANTIONE Mineral Oil (Mineral Oil Enema 133 Ml Enema) 133 ml [place] Q1H PRN PRN Reason: Constipation Last Admin: 03/30/24 16:07 Dose: 133 ml Documented By: ROCIO Multivitamins/Vitamin C (Multivitamin Tablet) 1 tab PO DAILY [facility] Last Admin: 03/31/24 08:13 Dose: Not Given Documented By: ROCIO Non-Admin Reason: Hold per Ondansetron HCl (Ondansetron Hcl 4 Mg/2 Ml Vial) 4 mg IVPUSH Q8H PRN PRN Reason: Nausea and Vomiting Last Admin: 03/29/24 21:18 Dose: 4 mg Documented By: GLENIS Pantoprazole Sodium (Pantoprazole Sodium 40 Mg/10 Ml Vial) 40 mg IVPUSH BID@0630,1630 [facility] Last Admin: 03/31/24 06:58 Dose: 40 mg Documented By: ANTIONE Pharmacy Consult (Consult Rx Vancomycin Dosing) 1 each MISCELLANE DAILY PRN PRN Reason: Consult order Prochlorperazine Edisylate (Prochlorperazine Edisylate 10 Mg/2 Ml Vial) 5 mg IVPUSH Q4H PRN PRN Reason: Nausea and Vomiting Last Admin: 03/30/24 04:20 Dose: 5 mg Documented By: GLENIS Sodium Chloride (0.9 % Sodium Chloride Flush 3 Ml Syringe) 3 ml IVFLUSH QSHIFT [facility] Last Admin: 03/31/24 07:54 Dose: Not Given Documented By: ROCIO Non-Admin Reason: IV Running Labs 04/01/24 06:02 04/01/24 06:02 Labs: Laboratory Results - last 24 hr 03/28/24 03/30/24 03/31/24 10:30 10:20 00:16 MCV 88.7 MCH 30.9 MCHC 34.8 RDW 13.6 Plt Count 305 MPV 10.3 Immature Gran % (Auto) 0.4 Neut % (Auto) 85.4 H Lymph % (Auto) 6.1 L [place] % (Auto) 7.9 Eos % (Auto) 0.1 Baso % (Auto) 0.1 Lymph # (Auto) 0.9 L [place] # (Auto) 1.1 Eos # (Auto) 0.0 Baso # (Auto) 0.0 Abs Immat Gran (auto) 0.06 H Absolute Neuts (auto) 12.0 H Absolute Nucleated RBC 0.000 Nucleated RBC % (auto) 0.0 Smear Path Review SEE NOTE VBG pH VBG pCO2 VBG pO2 VBG HCO3 VBG O2 Saturation VBG Base Excess Anion Gap 16 Estim Creat Clear Calc 65.6 Estimated GFR > 60 Random Glucose 169 H Fasting Glucose Lactic Acid 2.7 H* Lactic Acid F/U @ 2Hr 2.9 H* Lactic Acid F/U @ 4Hr Calcium 10.5 H Phosphorus 4.1 Magnesium 2.4 Total Bilirubin 1.8 H Direct Bilirubin AST 58 H ALT 83 H Alkaline Phosphatase 341 H Ammonia Troponin I High Sens 59.9 H B-Natriuretic Peptide 224 H Total Protein 8.0 Albumin 4.1 TSH 1.47 Random Vancomycin 03/31/24 03/31/24 03/31/24 00:23 02:41 06:51 MCV MCH MCHC RDW Plt Count MPV Immature Gran % (Auto) Neut % (Auto) Lymph % (Auto) [place] % (Auto) Eos % (Auto) Baso % (Auto) Lymph # (Auto) [place] # (Auto) Eos # (Auto) Baso # (Auto) Abs Immat Gran (auto) Absolute Neuts (auto) Absolute Nucleated RBC Nucleated RBC % (auto) Smear Path Review VBG pH 7.40 VBG pCO2 42 VBG pO2 46 VBG HCO3 26 VBG O2 Saturation 76.0 VBG Base Excess 1.8 Anion Gap Estim Creat Clear Calc Estimated GFR Random Glucose Fasting Glucose Lactic Acid Lactic Acid F/U @ 2Hr 2.3 H* Lactic Acid F/U @ 4Hr 2.2 H* Calcium Phosphorus Magnesium Total Bilirubin Direct Bilirubin AST ALT Alkaline Phosphatase Ammonia Troponin I High Sens B-Natriuretic Peptide Total Protein Albumin TSH Random Vancomycin 15.9 03/31/24 06:52 MCV 88.5 MCH 30.7 MCHC 34.7 RDW 13.5 Plt Count 315 MPV 10.2 Immature Gran % (Auto) Neut % (Auto) Lymph % (Auto) [place] % (Auto) Eos % (Auto) Baso % (Auto) Lymph # (Auto) [place] # (Auto) Eos # (Auto) Baso # (Auto) Abs Immat Gran (auto) Absolute Neuts (auto) Absolute Nucleated RBC 0.000 Nucleated RBC % (auto) 0.0 Smear Path Review VBG pH VBG pCO2 VBG pO2 VBG HCO3 VBG O2 Saturation VBG Base Excess Anion Gap 18 Estim Creat Clear Calc 66.1 Estimated GFR > 60 Random Glucose Fasting Glucose 147 H Lactic Acid Lactic Acid F/U @ 2Hr Lactic Acid F/U @ 4Hr Calcium 10.7 H Phosphorus Magnesium 2.5 Total Bilirubin 2.0 H Direct Bilirubin 0.7 H AST 63 H ALT 80 H Alkaline Phosphatase 337 H Ammonia 82 H Troponin I High Sens B-Natriuretic Peptide Total Protein 8.1 H Albumin 4.2 TSH Random Vancomycin Microbiology Microbiology Results: Microbiology 03/30/24 05:07 Blood Culture - Preliminary Blood - Venous No growth after 24 hours. 03/30/24 05:07 Blood Culture - Preliminary Blood - Venous No growth after 24 hours. 03/28/24 10:38 Blood Culture - Preliminary Blood - Venous Staphylococcus species 03/28/24 Unknown Urine Culture - Final Urine Catheterized - Straight Catheter No growth. 03/28/24 11:31 Blood Culture - Preliminary Blood - Venous Prelim: GPC Gram Stain only Procedures Date of Service Date of Service: 04/01/24 Progress Note: A&P Assessment and plan (1) Abdominal distension: Status: Acute Assessment and Plan: still distended although pt says this is better CT per report - diffuse distension small and large intestine, no obstruction seen; am unable to retrieve images at this time on Intelliviewer remains SOB bili rising - has hx of sclerosing cholangitis ffup KUB hold of on narcotrics corrrect any electrolyte/fluid imbalance follow liverr function keep NGT in place overall clinical picture concerning - multiple acute issues case reviewed with hospitalist pt's mother at bedside - discussed above Time Spent With Patient Time: Total time managing care of this patient today ____ minutes. Quality Stroke Does the patient have a stroke diagnosis?: No VTE Prior VTE?: No VTE Risk Level:: Medical - moderate - high VTE Device Contraindication: Treatment Not Indicated VTE Drug Contraindication: N/A - Med Ordered
[2024-03-31] MEDS: Furosemide 40 MG/4 ML VIAL IVPUSH (09:04)
[2024-03-31] MEDS: vancomycin HCL 750 MG in 0.9 % Sodium Chloride 250 ML 265 MG IV ×2 (09:04→20:17)
[2024-03-31 10:15] LABS: Cancel Lactic Acid Canceled
--- NOTE | 2024-03-31 13:15 | P.PNIM_ITS ---
Subjective Subjective Date of Service: 03/31/24 Interval History: Seen and evaluated this morning Feels nauseated and bloated not passing gas or moving his bowels NG with dark colored suctioned fluids Tachycardia overnight Review of Systems Review of Systems: Yes all other systems are reviewed and are negative Physical Exam 2 Vital Signs: Vital Signs: Last Vital Signs Temp 97.4 F 03/31/24 11:19 Pulse 114 H 03/31/24 11:19 Resp 18 03/31/24 11:19 BP 118/83 03/31/24 11:19 Pulse Ox 91 L 03/31/24 11:19 O2 Del Method Nasal Cannula 03/31/24 11:19 O2 Flow Rate 5 03/31/24 11:19 BMI result Body Mass Index 22.8 Const: Other: Constitutional : Awake, interactive, looks in moderate distress Neck : Normal inspection, Supple Cardiovascular : RRR, no JVP, no lower extremity edema Respiratory : good bilateral air entry, basal fine crackles, wheezes, on O2 supplement Gastrointestinal: soft, lax, no bowel sounds, Non tenderness, tympanic, distended Skin : Warm, Dry Neurological : Alert & oriented x3, No focal deficit Objective Data Active Medications Acetaminophen (Acetaminophen 325 Mg Tablet) 650 mg PO Q6H PRN PRN Reason: Pain, Mild (Pain Scale 1-3) Benzonatate (Benzonatate 100 Mg Capsule) 100 mg PO TID PRN PRN Reason: Cough Docusate Sodium (Docusate Sodium 100 Mg Capsule) 100 mg PO DAILY PRN PRN Reason: Constipation Enoxaparin Sodium (Enoxaparin Sodium 40 Mg/0.4 Ml Syringe) 40 mg SUBCUT Q24H [facility] Last Admin: 03/29/24 15:11 Dose: 40 mg Documented By: BASILOI Furosemide (Furosemide 40 Mg/4 Ml Vial) 40 mg IVPUSH BID@0900,1800 [facility]; Protocol Last Admin: 03/31/24 09:04 Dose: 40 mg Documented By: ROCIO Lactated Ringer's (Lr) 1,000 mls @ 80 mls/hr IVCONT .[id number] [facility] Last Admin: 03/31/24 06:59 Dose: 80 mls/hr Documented By: ANTIONE Vancomycin HCl 750 mg/ Sodium (Chloride) 265 mls @ 265 mls/hr IV Q12H [facility] Last Infusion: 03/31/24 10:31 Dose: Infused Documented By: ROCIO Lactulose (Lactulose 20 Gm/30 Ml Solution) 30 gm PO TID [facility] Last Admin: 03/31/24 08:13 Dose: Not Given Documented By: ROCIO Non-Admin Reason: Hold per Melatonin (Melatonin 3 Mg Tablet) 6 mg PO BEDTIME PRN PRN Reason: Insomnia Last Admin: 03/30/24 20:54 Dose: 6 mg Documented By: ANTIONE Methocarbamol (Methocarbamol 750 Mg Tablet) 750 mg PO TID [facility] Last Admin: 03/31/24 08:13 Dose: Not Given Documented By: ROCIO Non-Admin Reason: Hold per Metoprolol Tartrate (Metoprolol Tartrate 5 Mg/5 Ml Vial) 5 mg IVPUSH Q6H [facility]; Protocol Last Admin: 03/31/24 09:04 Dose: 5 mg Documented By: ROCIO Mineral Oil (Mineral Oil Enema 133 Ml Enema) 133 ml [place] Q1H PRN PRN Reason: Constipation Last Admin: 03/30/24 16:07 Dose: 133 ml Documented By: ROCIO Multivitamins/Vitamin C (Multivitamin Tablet) 1 tab PO DAILY [facility] Last Admin: 03/31/24 08:13 Dose: Not Given Documented By: ROCIO Non-Admin Reason: Hold per Ondansetron HCl (Ondansetron Hcl 4 Mg/2 Ml Vial) 4 mg IVPUSH Q8H PRN PRN Reason: Nausea and Vomiting Last Admin: 03/29/24 21:18 Dose: 4 mg Documented By: GLENIS Pantoprazole Sodium (Pantoprazole Sodium 40 Mg/10 Ml Vial) 40 mg IVPUSH BID@0630,1630 [facility] Last Admin: 03/31/24 06:58 Dose: 40 mg Documented By: ANTIONE Pharmacy Consult (Consult Rx Vancomycin Dosing) 1 each MISCELLANE DAILY PRN PRN Reason: Consult order Prochlorperazine Edisylate (Prochlorperazine Edisylate 10 Mg/2 Ml Vial) 5 mg IVPUSH Q4H PRN PRN Reason: Nausea and Vomiting Last Admin: 03/30/24 04:20 Dose: 5 mg Documented By: GLENIS Sodium Chloride (0.9 % Sodium Chloride Flush 3 Ml Syringe) 3 ml IVFLUSH QSHIFT [facility] Last Admin: 03/31/24 07:54 Dose: Not Given Documented By: ROCIO Non-Admin Reason: IV Running Labs 03/31/24 06:52 03/31/24 06:52 Labs: Laboratory Results - last 24 hr 03/31/24 03/31/24 03/31/24 00:16 00:23 02:41 MCV 88.7 MCH 30.9 MCHC 34.8 RDW 13.6 Plt Count 305 MPV 10.3 Immature Gran % (Auto) 0.4 Neut % (Auto) 85.4 H Lymph % (Auto) 6.1 L [place] % (Auto) 7.9 Eos % (Auto) 0.1 Baso % (Auto) 0.1 Lymph # (Auto) 0.9 L [place] # (Auto) 1.1 Eos # (Auto) 0.0 Baso # (Auto) 0.0 Abs Immat Gran (auto) 0.06 H Absolute Neuts (auto) 12.0 H Absolute Nucleated RBC 0.000 Nucleated RBC % (auto) 0.0 VBG pH 7.40 VBG pCO2 42 VBG pO2 46 VBG HCO3 26 VBG O2 Saturation 76.0 VBG Base Excess 1.8 Anion Gap 16 Estim Creat Clear Calc 65.6 Estimated GFR > 60 Random Glucose 169 H Fasting Glucose Lactic Acid 2.7 H* Lactic Acid F/U @ 2Hr 2.3 H* Lactic Acid F/U @ 4Hr Calcium 10.5 H Phosphorus 4.1 Magnesium 2.4 Total Bilirubin 1.8 H Direct Bilirubin AST 58 H ALT 83 H Alkaline Phosphatase 341 H Ammonia Troponin I High Sens 59.9 H B-Natriuretic Peptide 224 H Total Protein 8.0 Albumin 4.1 TSH 1.47 Random Vancomycin 03/31/24 03/31/24 06:51 06:52 MCV 88.5 MCH 30.7 MCHC 34.7 RDW 13.5 Plt Count 315 MPV 10.2 Immature Gran % (Auto) Neut % (Auto) Lymph % (Auto) [place] % (Auto) Eos % (Auto) Baso % (Auto) Lymph # (Auto) [place] # (Auto) Eos # (Auto) Baso # (Auto) Abs Immat Gran (auto) Absolute Neuts (auto) Absolute Nucleated RBC 0.000 Nucleated RBC % (auto) 0.0 VBG pH VBG pCO2 VBG pO2 VBG HCO3 VBG O2 Saturation VBG Base Excess Anion Gap 18 Estim Creat Clear Calc 66.1 Estimated GFR > 60 Random Glucose Fasting Glucose 147 H Lactic Acid Lactic Acid F/U @ 2Hr Lactic Acid F/U @ 4Hr 2.2 H* Calcium 10.7 H Phosphorus Magnesium 2.5 Total Bilirubin 2.0 H Direct Bilirubin 0.7 H AST 63 H ALT 80 H Alkaline Phosphatase 337 H Ammonia 82 H Troponin I High Sens B-Natriuretic Peptide Total Protein 8.1 H Albumin 4.2 TSH Random Vancomycin 15.9 Microbiology Microbiology Results: Microbiology 03/28/24 11:31 Blood Culture - Final Blood - Venous Streptococcus viridans group 03/28/24 10:38 Blood Culture - Final Blood - Venous Coag negative Staphylococcus 03/30/24 05:07 Blood Culture - Preliminary Blood - Venous No growth after 24 hours. 03/30/24 05:07 Blood Culture - Preliminary Blood - Venous No growth after 24 hours. 03/28/24 Unknown Urine Culture - Final Urine Catheterized - Straight Catheter No growth. Assessment and Plan (1) Abdominal distension: Status: Acute (2) Bacteremia: Status: Acute (3) Ileus: Status: Acute (4) Seizure: Status: Acute (5) Increased ammonia level: Status: Acute (6) Primary sclerosing cholangitis: Status: Acute Plan 39M PMH ulcerative colitis, primary sclerosing cholangitis, osteoporosis presented with low back pain, had new onset seizure in ED, also noted to have new compression fractures, now with abd distension n/v, and bacteremia Streptococcal viridans bacteremia Source likely GI Start Ceftriaxone 2 gm daily on Vancomycin, to DC once discussed with ID follow trough Pending repeat cultures New onset seizure Neurology appreciated, likely due to hyper ammonia recommend treating ammonia and no AEDs at this time, continue to monitor Pending EEG reading Ulcerative colitis and PSC complicated by hyperammonia Continue lactulose, monitor Ursodiol, mesalamine once tolerated GI input appreciated Ileus , acute npo Surgery following Repeat KUB showing dilated colon NGT placed, To place rectal tube Tachycardia reflux from illness, not due sepsis TSH acceptable Lactic acidosis secondary to chronic liver disease rather than sepsis Back pain due to acute compression fractures of L2 and L5 due to osteoporosis PT appreciated plan for acute rehab Pain control DVT prophylaxis Lovenox Full Code reason for continued hospitalization: Treating bacteremia with IV Antibiotics pending negative cultures Quality Stroke Does the patient have a stroke diagnosis?: No VTE Prior VTE?: No VTE Risk Level:: Medical - moderate - high VTE Device Contraindication: Treatment Not Indicated VTE Drug Contraindication: N/A - Med Ordered
--- NOTE | 2024-03-31 14:23 | PC.NURSE ---
Per MD patient to have rectal tube inserted d/t severe colon distension. Tube inserted at 1400 and patient tolerated well. All other needs met at this time and call camacho within reach.
[2024-03-31] MEDS: cefTRIAXone sodium 2 GM in 0.9 % Sodium Chloride 50 ML IV (15:04)
[2024-03-31] MEDS: 0.9 % Sodium Chloride Flush 3 ML SYRINGE IVFLUSH ×2 (15:05→21:25)
--- NOTE | 2024-03-31 15:07 | P.PNGI_ITS ---
Subjective Subjective Date of Service: 03/31/24 Interval History: Javi is expressing discomfort from the NG tube. He is seen in the room with his mother. Critical Care Time (minutes): 0 Physical Exam 2 Vital Signs: Vital Signs: Last Vital Signs Temp 97.4 F 03/31/24 11:19 Pulse 114 H 03/31/24 11:19 Resp 18 03/31/24 11:19 BP 118/83 03/31/24 11:19 Pulse Ox 91 L 03/31/24 11:19 O2 Del Method Nasal Cannula 03/31/24 11:19 O2 Flow Rate 5 03/31/24 11:19 BMI result Body Mass Index 22.8 GI: Other: abdomen is distended and not focally tender Objective Data Labs 03/31/24 06:52 03/31/24 06:52 Microbiology Microbiology Results: Microbiology 03/28/24 11:31 Blood - Venous Blood Culture - Final Streptococcus viridans group 03/28/24 10:38 Blood - Venous Blood Culture - Final Coag negative Staphylococcus 03/30/24 05:07 Blood - Venous Blood Culture - Preliminary No growth after 24 hours. 03/30/24 05:07 Blood - Venous Blood Culture - Preliminary No growth after 24 hours. 03/28/24 Unknown Urine Catheterized - Straight Catheter Urine Culture - Final No growth. Procedures Date of Service Date of Service: 03/31/24 Progress Note: A&P Assessment and plan (1) Abdominal distension: Status: Acute Plan I am concerned regarding his clinical appearance. Ileus could be related to underlying sepsis/infection, and imaging has shown no obstruction. Last colonoscopy 12/26 looked great. Continue NG suction and follow clinically. Low threshold to get f/u ct scan if no improvement. Time Spent With Patient Time: Total time managing care of this patient today ____ minutes. Quality Stroke Does the patient have a stroke diagnosis?: No VTE Prior VTE?: No VTE Risk Level:: Medical - moderate - high VTE Device Contraindication: Treatment Not Indicated VTE Drug Contraindication: N/A - Med Ordered
[2024-03-31 15:51] LABS: Anion Gap 17 (12-20); Blood Urea Nitrogen 49 mg/dL (9-16); Calcium 10.5 mg/dL (8.4-10.2); Carbon Dioxide 26 mmol/L (22-29); Chloride 104 mmol/L (96-108); Creatinine Clr Calc Pharmacy 71.7; Estimated Glomerular Filt Rate > 60; Glucose Random 129 mg/dL (60-115); Potassium 4.4 mmol/L (3.3-5.1); Sodium 143 mmol/L (135-145)
--- NOTE | 2024-03-31 16:27 | PM.EVENT ---
Event Note Date of Service: 04/01/24 Event Note: KUB shows diffuse dilatation of small and large intestines rectal tube inserted passed gas via tube abd still distended but soft keep NGT in overall clinical picture c/w ileus from acute illness ammonia climbing again multiple issues worrisome correct metabolic derangements will follow closely dw above with his mom Jane at bedside Time Spent With Patient Time: Total time managing care of this patient today ____ minutes.
--- NOTE | 2024-03-31 16:35 | MHC.CM.PN ---
EMR reviewed and per MD rounds, pt is not medically cleared for discharge due to ongoing management of bacteremia and multiple other medical issues needing specialists involvement.
[2024-03-31 20:21] LABS: MANUAL DIFF FLAG NO
[2024-03-31 20:28] LABS: Basophils Percent Auto 0.2 % (0-2); Hematocrit 47.2 % (42.0-52.0); Hemoglobin 16.6 g/dl (14.0-18.0); Imm Gran Abs Auto 0.02 X10*3/uL (0.00-0.03); Imm Gran Pct Auto 0.2 % (0.0-0.4); Lymphocytes Percent Auto 8.6 % (20-40); Mean Corpuscular HGB Conc 35.2 g/dl (31.0-36.0); Mean Corpuscular Hemoglobin 30.9 pg (27.0-33.0); Mean Corpuscular Volume 87.9 fL (80.0-98.0); Mean Platelet Volume 10.1 fL (9.4-12.4); Monocytes Absolute Auto 1.1 X10*3/uL (0.1-1.2); Monocytes Percent Auto 9.4 % (2-11); Neutrophils Absolute Auto 9.8 x10*3/uL (2.0-8.3); Neutrophils Percent Auto 81.6 % (45-73); Platelet Count 275 X10*3/uL (160-400); Red Blood Count 5.37 X10*6/uL (4.60-5.80); Red Cell Distribution Width 13.5 % (11.0-16.0); White Blood Count 12.1 X10*3/uL (4.8-10.8)
[2024-03-31 20:39] LABS: Alanine Aminotransferase 64 U/L (0-40); Albumin Level 3.8 g/dL (3.5-5.0); Alkaline Phosphatase 277 U/L (39-117); Anion Gap 22 (12-20); Aspartate Amino Transferase 60 U/L (5-37); Bilirubin Total 1.8 mg/dL (0.0-1.0); Blood Urea Nitrogen 48 mg/dL (9-16); Calcium 9.5 mg/dL (8.4-10.2); Carbon Dioxide 24 mmol/L (22-29); Chloride 104 mmol/L (96-108); Creatinine Clr Calc Pharmacy 80.6; Estimated Glomerular Filt Rate > 60; Glucose Random 127 mg/dL (60-115); Magnesium 2.3 mg/dL (1.6-2.6); Potassium 3.9 mmol/L (3.3-5.1); Sodium 146 mmol/L (135-145); Total Protein 7.1 g/dL (6.5-8.0)
[2024-03-31] MEDS: KCl 20 mEq in 5 % Dex/Lact Rin 20 MEQ/1,000 ML IV.SOLN 80 MEQ IVCONT (22:02)
[2024-04-01] VITALS (21 sets, daily range): BP systolic 118–136; BP diastolic 82–94; PULSE 91–122; RESP 20–43; TEMP 36.6–37.1; O2SAT 50–93; BMI 23.5
[2024-04-01] MEDS: Metoprolol Tartrate 5 MG/5 ML VIAL IVPUSH ×2 (03:45→08:33)
[2024-04-01] MEDS: Pantoprazole Sodium 40 MG/10 ML VIAL IVPUSH ×2 (05:58→16:55)
[2024-04-01 06:37] LABS: Hematocrit 46.8 % (42.0-52.0); Hemoglobin 16.1 g/dl (14.0-18.0); Mean Corpuscular HGB Conc 34.4 g/dl (31.0-36.0); Mean Corpuscular Hemoglobin 30.6 pg (27.0-33.0); Mean Platelet Volume 10.3 fL (9.4-12.4); Platelet Count 241 X10*3/uL (160-400); Red Blood Count 5.26 X10*6/uL (4.60-5.80); Red Cell Distribution Width 13.3 % (11.0-16.0); White Blood Count 10.4 X10*3/uL (4.8-10.8)
[2024-04-01 06:43] LABS: Creatinine Clr Calc Pharmacy 98.4; Estimated Glomerular Filt Rate > 60
[2024-04-01 06:44] LABS: Anion Gap 14 (12-20); Blood Urea Nitrogen 44 mg/dL (9-16); Calcium 9.5 mg/dL (8.4-10.2); Carbon Dioxide 27 mmol/L (22-29); Chloride 109 mmol/L (96-108); Creatinine Clr Calc Pharmacy 98.4; Estimated Glomerular Filt Rate > 60; Glucose Random 133 mg/dL (60-115); Potassium 3.8 mmol/L (3.3-5.1); Sodium 146 mmol/L (135-145)
--- NOTE | 2024-04-01 08:17 | P.PNGS_ITS ---
Subjective Subjective Date of Service: 04/01/24 Interval history: Says he feels better overall this morning Denies abdominal pain He says he has been passing flatus with the rectal tube Physical Exam 2 Vital Signs: Vital Signs: Last Vital Signs Temp 98.6 F 04/01/24 07:39 Pulse 108 H 04/01/24 07:39 Resp 20 04/01/24 07:39 BP 132/92 H 04/01/24 07:39 Pulse Ox 92 04/01/24 07:39 O2 Del Method Nasal Cannula 04/01/24 07:39 O2 Flow Rate 5 04/01/24 07:39 BMI result Body Mass Index 22.8 Const: Other: Still short of breath but more alert and more conversant Resp: Other: Short of breath Cardio: Rate: tachycardic GI: Other: Still distended but softer compared to yesterday, distention appears significantly less, no guarding, no rebound Palpation (GI): Soft to palpation Objective Data Active Medications Acetaminophen (Acetaminophen 325 Mg Tablet) 650 mg PO Q6H PRN PRN Reason: Pain, Mild (Pain Scale 1-3) Benzonatate (Benzonatate 100 Mg Capsule) 100 mg PO TID PRN PRN Reason: Cough Docusate Sodium (Docusate Sodium 100 Mg Capsule) 100 mg PO DAILY PRN PRN Reason: Constipation Enoxaparin Sodium (Enoxaparin Sodium 40 Mg/0.4 Ml Syringe) 40 mg SUBCUT Q24H [facility] Last Admin: 03/29/24 15:11 Dose: 40 mg Documented By: BASILIO Furosemide (Furosemide 40 Mg/4 Ml Vial) 40 mg IVPUSH BID@0900,1800 [facility]; Protocol Last Admin: 03/31/24 09:04 Dose: 40 mg Documented By: ROCIO Vancomycin HCl 750 mg/ Sodium (Chloride) 265 mls @ 265 mls/hr IV Q12H [facility] Last Infusion: 03/31/24 21:20 Dose: Infused Documented By: JOLANTA Ceftriaxone Sodium 2 gm/ (Sodium Chloride) 50 mls @ 100 mls/hr IV Q24H [facility] Last Infusion: 03/31/24 15:35 Dose: Infused Documented By: ROCIO Potassium Cl/Dextrose/Lact Ringer's (Kcl 20 Meq In 5 % Dex/Lact Rin) 20 meq in 1,000 mls @ 80 mls/hr IVCONT .[id number] [facility] Last Admin: 03/31/24 22:02 Dose: 80 mls/hr Documented By: JOLANTA Lactulose (Lactulose 20 Gm/30 Ml Solution) 30 gm PO TID [facility] Last Admin: 03/31/24 20:20 Dose: Not Given Documented By: JOLANTA Non-Admin Reason: Per MD hold Melatonin (Melatonin 3 Mg Tablet) 6 mg PO BEDTIME PRN PRN Reason: Insomnia Last Admin: 03/30/24 20:54 Dose: 6 mg Documented By: ANTIONE Methocarbamol (Methocarbamol 750 Mg Tablet) 750 mg PO TID [facility] Last Admin: 03/31/24 20:20 Dose: Not Given Documented By: JOLANTA Non-Admin Reason: Per MD hold Metoprolol Tartrate (Metoprolol Tartrate 5 Mg/5 Ml Vial) 5 mg IVPUSH Q6H [facility]; Protocol Last Admin: 04/01/24 03:45 Dose: 5 mg Documented By: ANCELMO Mineral Oil (Mineral Oil Enema 133 Ml Enema) 133 ml [place] Q1H PRN PRN Reason: Constipation Last Admin: 03/30/24 16:07 Dose: 133 ml Documented By: ROCIO Multivitamins/Vitamin C (Multivitamin Tablet) 1 tab PO DAILY [facility] Last Admin: 03/31/24 08:13 Dose: Not Given Documented By: ROCIO Non-Admin Reason: Hold per MD Ondansetron HCl (Ondansetron Hcl 4 Mg/2 Ml Vial) 4 mg IVPUSH Q8H PRN PRN Reason: Nausea and Vomiting Last Admin: 03/29/24 21:18 Dose: 4 mg Documented By: GLENIS Pantoprazole Sodium (Pantoprazole Sodium 40 Mg/10 Ml Vial) 40 mg IVPUSH BID@0630,1630 [facility] Last Admin: 04/01/24 05:58 Dose: 40 mg Documented By: GABRIEL Pharmacy Consult (Consult Rx Vancomycin Dosing) 1 each MISCELLANE DAILY PRN PRN Reason: Consult order Prochlorperazine Edisylate (Prochlorperazine Edisylate 10 Mg/2 Ml Vial) 5 mg IVPUSH Q4H PRN PRN Reason: Nausea and Vomiting Last Admin: 03/30/24 04:20 Dose: 5 mg Documented By: GLENIS Sodium Chloride (0.9 % Sodium Chloride Flush 3 Ml Syringe) [facility] Admin: 03/31/24 21:25 Dose: 3 ml Documented By: JOLANTA Labs 04/01/24 06:02 04/01/24 06:02 Labs: Laboratory Results - last 24 hr 03/31/24 03/31/24 04/01/24 15:06 20:04 06:02 MCV 87.9 89.0 MCH 30.9 30.6 MCHC 35.2 34.4 RDW 13.5 13.3 Plt Count 275 241 MPV 10.1 10.3 Immature Gran % (Auto) 0.2 Neut % (Auto) 81.6 H Lymph % (Auto) 8.6 L [place] % (Auto) 9.4 Eos % (Auto) 0.0 Baso % (Auto) 0.2 Lymph # (Auto) 1.0 L [place] # (Auto) 1.1 Eos # (Auto) 0.0 Baso # (Auto) 0.0 Abs Immat Gran (auto) 0.02 Absolute Neuts (auto) 9.8 H Absolute Nucleated RBC 0.000 0.000 Nucleated RBC % (auto) 0.0 0.0 Anion Gap 17 22 H 14 Estim Creat Clear Calc 71.7 80.6 98.4 Estimated GFR > 60 > 60 Random Glucose 129 H 127 H Calcium 10.5 H 9.5 D Magnesium 2.3 Total Bilirubin 1.8 H AST 60 H ALT 64 H Alkaline Phosphatase 277 H Total Protein 7.1 Albumin 3.8 04/01/24 04/01/24 06:02 06:02 MCV MCH MCHC RDW Plt Count MPV Immature Gran % (Auto) Neut % (Auto) Lymph % (Auto) [place] % (Auto) Eos % (Auto) Baso % (Auto) Lymph # (Auto) [place] # (Auto) Eos # (Auto) Baso # (Auto) Abs Immat Gran (auto) Absolute Neuts (auto) Absolute Nucleated RBC Nucleated RBC % (auto) Anion Gap Estim Creat Clear Calc 98.4 Estimated GFR > 60 > 60 Random Glucose 133 H Calcium 9.5 Magnesium Total Bilirubin AST ALT Alkaline Phosphatase Total Protein Albumin Microbiology Microbiology Results: Microbiology 03/30/24 05:07 Blood Culture - Preliminary Blood - Venous No growth after 48 hours. 03/30/24 05:07 Blood Culture - Preliminary Blood - Venous No growth after 48 hours. 03/28/24 11:31 Blood Culture - Final Blood - Venous Streptococcus viridans group 03/28/24 10:38 Blood Culture - Final Blood - Venous Coag negative Staphylococcus Procedures Date of Service Date of Service: 04/01/24 Progress Note: A&P Assessment and plan (1) Abdominal distension: Status: Acute Assessment and Plan: Consistent with severe ileus based on clinical picture, imaging NG tube in place rectal tube in place Abdominal distention is improving compared to yesterday Abdomen feels softer Keep NG tube in for now Encouraged to sit on the side of the bed if possible We will continue to follow closely Has multiple acute medical issues Mother at bedside Time Spent With Patient Time: Total time managing care of this patient today ____ minutes. Quality Stroke Does the patient have a stroke diagnosis?: No VTE Prior VTE?: No VTE Risk Level:: Medical - moderate - high VTE Device Contraindication: Treatment Not Indicated VTE Drug Contraindication: N/A - Med Ordered
[2024-04-01] MEDS: vancomycin HCL 750 MG in 0.9 % Sodium Chloride 250 ML 265 MG IV (08:34)
[2024-04-01] MEDS: 0.9 % Sodium Chloride Flush 3 ML SYRINGE IVFLUSH ×3 (08:45→23:58)
--- NOTE | 2024-04-01 08:50 | P.PNIM_ITS ---
Subjective Subjective Date of Service: 04/01/24 Interval History: Seen and evaluated this morning Feels less nauseated and bloated NG tube in place, no significant amount of suctioned liquids Rectal tube in place, passing gas Tachycardia better controlled Review of Systems Review of Systems: Yes all other systems are reviewed and are negative Physical Exam 2 Vital Signs: Vital Signs: Last Vital Signs Temp 98.6 F 04/01/24 07:39 Pulse 108 H 04/01/24 07:39 Resp 20 04/01/24 07:39 BP 132/92 H 04/01/24 07:39 Pulse Ox 92 04/01/24 07:39 O2 Del Method Nasal Cannula 04/01/24 07:39 O2 Flow Rate 5 04/01/24 07:39 BMI result Body Mass Index 22.8 Const: Other: Constitutional : Awake, interactive, not in distress Neck : Normal inspection, Supple Cardiovascular : RRR, no JVP, no lower extremity edema Respiratory : good bilateral air entry, basal fine crackles, wheezes, on O2 supplement Gastrointestinal: soft, lax, no bowel sounds, Non tenderness,less tympanic, mildly distended Skin : Warm, Dry Neurological : Alert & oriented x3, No focal deficit Objective Data Active Medications Acetaminophen (Acetaminophen 325 Mg Tablet) 650 mg PO Q6H PRN PRN Reason: Pain, Mild (Pain Scale 1-3) Benzonatate (Benzonatate 100 Mg Capsule) 100 mg PO TID PRN PRN Reason: Cough Docusate Sodium (Docusate Sodium 100 Mg Capsule) 100 mg PO DAILY PRN PRN Reason: Constipation Enoxaparin Sodium (Enoxaparin Sodium 40 Mg/0.4 Ml Syringe) 40 mg SUBCUT Q24H [facility] Last Admin: 03/29/24 15:11 Dose: 40 mg Documented By: BASILIO Furosemide (Furosemide 40 Mg/4 Ml Vial) 40 mg IVPUSH BID@0900,1800 [facility]; Protocol Last Admin: 03/31/24 09:04 Dose: 40 mg Documented By: ROCIO Vancomycin HCl 750 mg/ Sodium (Chloride) 265 mls @ 265 mls/hr IV Q12H [facility] Last Admin: 04/01/24 08:34 Dose: 265 mls/hr Documented By: ELANAFEYUNIEL Ceftriaxone Sodium 2 gm/ (Sodium Chloride) 50 mls @ 100 mls/hr IV Q24H [facility] Last Infusion: 03/31/24 15:35 Dose: Infused Documented By: ROCIO Potassium Cl/Dextrose/Lact Ringer's (Kcl 20 Meq In 5 % Dex/Lact Rin) 20 meq in 1,000 mls @ 80 mls/hr IVCONT .[id number] [facility] Last Admin: 03/31/24 22:02 Dose: 80 mls/hr Documented By: JOLANTA Lactulose (Lactulose 20 Gm/30 Ml Solution) 30 gm PO TID [facility] Last Admin: 04/01/24 08:24 Dose: Not Given Documented By: ADAM Non-Admin Reason: NPO Melatonin (Melatonin 3 Mg Tablet) 6 mg PO BEDTIME PRN PRN Reason: Insomnia Last Admin: 03/30/24 20:54 Dose: 6 mg Documented By: ANTIONE Methocarbamol (Methocarbamol 750 Mg Tablet) 750 mg PO TID [facility] Last Admin: 04/01/24 08:24 Dose: Not Given Documented By: ADAM Non-Admin Reason: NPO Metoprolol Tartrate (Metoprolol Tartrate 5 Mg/5 Ml Vial) 5 mg IVPUSH Q6H [facility]; Protocol Last Admin: 04/01/24 08:33 Dose: 5 mg Documented By: ADAM Mineral Oil (Mineral Oil Enema 133 Ml Enema) 133 ml [place] Q1H PRN PRN Reason: Constipation Last Admin: 03/30/24 16:07 Dose: 133 ml Documented By: ROCIO Multivitamins/Vitamin C (Multivitamin Tablet) 1 tab PO DAILY [facility] Last Admin: 04/01/24 08:25 Dose: Not Given Documented By: ADAM Non-Admin Reason: NPO Ondansetron HCl (Ondansetron Hcl 4 Mg/2 Ml Vial) 4 mg IVPUSH Q8H PRN PRN Reason: Nausea and Vomiting Last Admin: 03/29/24 21:18 Dose: 4 mg Documented By: GLENIS Pantoprazole Sodium (Pantoprazole Sodium 40 Mg/10 Ml Vial) 40 mg IVPUSH BID@0630,1630 [facility] Last Admin: 04/01/24 05:58 Dose: 40 mg Documented By: GABRIEL Pharmacy Consult (Consult Rx Vancomycin Dosing) 1 each MISCELLANE DAILY PRN PRN Reason: Consult order Prochlorperazine Edisylate (Prochlorperazine Edisylate 10 Mg/2 Ml Vial) 5 mg IVPUSH Q4H PRN PRN Reason: Nausea and Vomiting Last Admin: 03/30/24 04:20 Dose: 5 mg Documented By: GLENIS Sodium Chloride (0.9 % Sodium Chloride Flush 3 Ml Syringe) 3 ml IVFLUSH QSHIFT [facility] Last Admin: 04/01/24 08:45 Dose: 3 ml Documented By: MONFETE Labs 04/01/24 06:02 04/01/24 06:02 Labs: Laboratory Results - last 24 hr 03/31/24 03/31/24 04/01/24 15:06 20:04 06:02 MCV 87.9 89.0 MCH 30.9 30.6 MCHC 35.2 34.4 RDW 13.5 13.3 Plt Count 275 241 MPV 10.1 10.3 Immature Gran % (Auto) 0.2 Neut % (Auto) 81.6 H Lymph % (Auto) 8.6 L [place] % (Auto) 9.4 Eos % (Auto) 0.0 Baso % (Auto) 0.2 Lymph # (Auto) 1.0 L [place] # (Auto) 1.1 Eos # (Auto) 0.0 Baso # (Auto) 0.0 Abs Immat Gran (auto) 0.02 Absolute Neuts (auto) 9.8 H Absolute Nucleated RBC 0.000 0.000 Nucleated RBC % (auto) 0.0 0.0 Anion Gap 17 22 H 14 Estim Creat Clear Calc 71.7 80.6 98.4 Estimated GFR > 60 > 60 Random Glucose 129 H 127 H Calcium 10.5 H 9.5 D Magnesium 2.3 Total Bilirubin 1.8 H AST 60 H ALT 64 H Alkaline Phosphatase 277 H Total Protein 7.1 Albumin 3.8 04/01/24 04/01/24 06:02 06:02 MCV MCH MCHC RDW Plt Count MPV Immature Gran % (Auto) Neut % (Auto) Lymph % (Auto) [place] % (Auto) Eos % (Auto) Baso % (Auto) Lymph # (Auto) [place] # (Auto) Eos # (Auto) Baso # (Auto) Abs Immat Gran (auto) Absolute Neuts (auto) Absolute Nucleated RBC Nucleated RBC % (auto) Anion Gap Estim Creat Clear Calc 98.4 Estimated GFR > 60 > 60 Random Glucose 133 H Calcium 9.5 Magnesium Total Bilirubin AST ALT Alkaline Phosphatase Total Protein Albumin Microbiology Microbiology Results: Microbiology 03/30/24 05:07 Blood Culture - Preliminary Blood - Venous No growth after 48 hours. 03/30/24 05:07 Blood Culture - Preliminary Blood - Venous No growth after 48 hours. 03/28/24 11:31 Blood Culture - Final Blood - Venous Streptococcus viridans group 03/28/24 10:38 Blood Culture - Final Blood - Venous Coag negative Staphylococcus Assessment and Plan (1) Abdominal distension: Status: Acute (2) Bacteremia: Status: Acute (3) Ileus: Status: Acute (4) Seizure: Status: Acute (5) Increased ammonia level: Status: Acute Plan 39M PMH ulcerative colitis, primary sclerosing cholangitis, osteoporosis presented with low back pain, had new onset seizure in ED, also noted to have new compression fractures, now with abd distension n/v, and bacteremia Ileus , acute npo Surgery following Repeat KUB showing dilated colon NGT placed, rectal tube in place gentle hydration Streptococcal viridans bacteremia Source likely GI Continue Ceftriaxone 2 gm daily DC Vancomycin ID consulted, 2 weeks total Abx, Levaquin PO on discharge. follow trough Pending repeat cultures New onset seizure Neurology appreciated, likely due to hyper ammonia recommend treating ammonia and no AEDs at this time, continue to monitor Pending EEG reading Ulcerative colitis and PSC complicated by hyperammonia Continue lactulose as tolerated, goal 1-2 BM daily Ursodiol, mesalamine once tolerated GI input appreciated Tachycardia reflux from illness, not due sepsis TSH acceptable Lactic acidosis secondary to chronic liver disease rather than sepsis Back pain due to acute compression fractures of L2 and L5 due to osteoporosis PT appreciated plan for acute rehab Pain control DVT prophylaxis Lovenox Full Code reason for continued hospitalization: Treating bacteremia with IV Antibiotics pending negative cultures, Ileus clinical improvement Quality Stroke Does the patient have a stroke diagnosis?: No VTE Prior VTE?: No VTE Risk Level:: Medical - moderate - high VTE Device Contraindication: Treatment Not Indicated VTE Drug Contraindication: N/A - Med Ordered
--- NOTE | 2024-04-01 09:29 | PC.RT ---
pt walked with PT. pt sats dropped. oxymask placed f/b a NRB . Rapid response called. Pt now on 100% hfnc with a 100% nrb sats remains 78%. rr mid 40's ICU to be consulted.
[2024-04-01 09:31] LABS: ABG Base Excess 2.7 mmol/L; ABG HCO3 26 mmol/L (22-26); ABG pCO2 35 mmHg (32-45); ABG pH 7.46 (7.35-7.45); ABG pO2 52 mmHg (83-108)
--- NOTE | 2024-04-01 10:24 | PC.NURSE ---
While ambulating with physical therapy patient's O2 began to drop to 70s and got as low as 60% while on 4L NC. respiratory was called to bedside when patient's o2 sat did not return to normal at rest. Respiratory placed patient on oxymask at 16L and MD was notified and REVERBERAT[employer]NA[employer] OPERATOR was called as patient's saturation still remained in the 70s. Patient was then placed on high flow NC and stat chest x ray and ABGs were obtained. Intensivest was consulted and patient was transferred to ICU for further care
--- NOTE | 2024-04-01 10:35 | PC.NURSE ---
Received patient as emergent transfer from [facility] to room 252 ICU at approx 1010. On bipap 18/, 100%. Initially O2sat mid 80's, elevated RR high 30's, concern need for intubation. TV 600s, MIN VOL >24. RT at bedside. Rectal tube removed per Dr Rhodes - Rectal exam done. Plan for enema with lactulose. O2sat up to 91-92% after exam, linen change, and pericare. Dr Rhodes holding off on intubation at this time. Abdomen very distended. Report received Sylwia GUERRIER.
[2024-04-01] MEDS: Lactulose 320 GM/480 ML SOLUTION 200 GM PR (10:59)
[2024-04-01 11:41] LABS: D Dimer High Sensitivity 12888 NG/ML
[2024-04-01 11:51] LABS: ABG Refer to POC result
[2024-04-01] MEDS: Mineral OiL enema 133 ML ENEMA PR (14:00)
[2024-04-01] MEDS: iohexoL 350 MG/ML 75 ML INFUS..BTL 85 ML IV (14:05)
[2024-04-01] MEDS: cefTRIAXone sodium 2 GM in 0.9 % Sodium Chloride 50 ML IV (14:44)
--- NOTE | 2024-04-01 14:46 | P.PNCC_ITS ---
Subjective Subjective Date of Service: 04/01/24 Interval History: 39-year-old gentleman with underlying ulcerative colitis, primary sclerosing cholangitis, osteoporosis, admitted on 02/27/2024 with low back pain and seizure- like activity. Patient was evaluated by Neurology and seizure was deemed to be secondary to hyperammonemia. His hospital course significant for profound ileus, evaluated by both Gastroenterology and General surgery Services and managed conservatively. On around 09:30 patient with sudden onset of hypoxia likely secondary to aspiration event refractory to high-flow nasal cannula support requiring initiation of BiPAP and transferred to intensive care unit. The intensive care unit with slowly improving noninvasive positive pressure ventilatory support requirements. Critical Care Time (minutes): 60 Physical Exam 2 Vital Signs: Vital Signs: Last Vital Signs Temp 97.8 F 04/01/24 12:00 Pulse 105 H 04/01/24 14:00 Resp 26 H 04/01/24 14:00 BP 126/86 04/01/24 14:00 Pulse Ox 93 04/01/24 14:00 O2 Del Method BiPAP 04/01/24 14:00 O2 Flow Rate 5 04/01/24 07:39 FiO2 70 04/01/24 14:00 BMI result Body Mass Index 22.8 Const: General: no acute distress, alert and awake Eyes: Sclerae: sclerae normal EOM: EOMs intact bilaterally Neck: Neck: Yes no lymphadenopathy, Yes trachea midline and Yes supple Resp: Effort & Inspection: normal respiratory effort and no respiratory distress Auscultation: clear to auscultation bilaterally Cardio: Rate: tachycardic Rhythm: regular rhythm Heart sounds: no gallops, no murmurs and no rubs GI: Inspection: Yes distended Palpation (GI): Soft to palpation and Other GI palpation findings present ( Nontender) Auscultation: Hypoactive bowel sounds present Extrem: General: Yes no pedal edema, No clubbing and No cyanosis Objective Data Labs 04/01/24 06:02 04/01/24 06:02 Labs: Laboratory Results - last 24 hr 03/31/24 03/31/24 04/01/24 15:06 20:04 06:02 WBC 12.1 H 10.4 RBC 5.37 5.26 Hgb 16.6 16.1 Hct 47.2 46.8 MCV 87.9 89.0 MCH 30.9 30.6 MCHC 35.2 34.4 RDW 13.5 13.3 Plt Count 275 241 MPV 10.1 10.3 Immature Gran % (Auto) 0.2 Neut % (Auto) 81.6 H Lymph % (Auto) 8.6 L [place] % (Auto) 9.4 Eos % (Auto) 0.0 Baso % (Auto) 0.2 Lymph # (Auto) 1.0 L [place] # (Auto) 1.1 Eos # (Auto) 0.0 Baso # (Auto) 0.0 Abs Immat Gran (auto) 0.02 Absolute Neuts (auto) 9.8 H Absolute Nucleated RBC 0.000 0.000 Nucleated RBC % (auto) 0.0 0.0 Hold Purple Top D-Dimer High Sensitivty O2 Saturation ABG pH at Pt Temp ABG pCO2 at Pt Temp ABG pO2 at Pt Temp ABG HCO3 ABG Base Excess (Actual) Sodium 143 146 H 146 H Potassium 4.4 3.9 3.8 Chloride 104 104 109 H Carbon Dioxide 26 24 27 Anion Gap 17 22 H 14 BUN 49 H 48 H 44 H Creatinine 1.18 1.05 0.86 Estim Creat Clear Calc 71.7 80.6 Estimated GFR > 60 > 60 Random Glucose 129 H 127 H Calcium 10.5 H 9.5 D Magnesium 2.3 Total Bilirubin 1.8 H AST 60 H ALT 64 H Alkaline Phosphatase 277 H Total Protein 7.1 Albumin 3.8 04/01/24 04/01/24 04/01/24 06:02 06:02 06:02 WBC RBC Hgb Hct MCV MCH MCHC RDW Plt Count MPV Immature Gran % (Auto) Neut % (Auto) Lymph % (Auto) [place] % (Auto) Eos % (Auto) Baso % (Auto) Lymph # (Auto) [place] # (Auto) Eos # (Auto) Baso # (Auto) Abs Immat Gran (auto) Absolute Neuts (auto) Absolute Nucleated RBC Nucleated RBC % (auto) Hold Purple Top D-Dimer High Sensitivty O2 Saturation ABG pH at Pt Temp ABG pCO2 at Pt Temp ABG pO2 at Pt Temp ABG HCO3 ABG Base Excess (Actual) Sodium Potassium Chloride Carbon Dioxide Anion Gap BUN Creatinine 0.86 Estim Creat Clear Calc 98.4 98.4 Estimated GFR > 60 > 60 Random Glucose 133 H Calcium 9.5 Magnesium Total Bilirubin AST ALT Alkaline Phosphatase Total Protein Albumin 04/01/24 04/01/24 09:22 11:18 WBC RBC Hgb Hct MCV MCH MCHC RDW Plt Count MPV Immature Gran % (Auto) Neut % (Auto) Lymph % (Auto) [place] % (Auto) Eos % (Auto) Baso % (Auto) Lymph # (Auto) [place] # (Auto) Eos # (Auto) Baso # (Auto) Abs Immat Gran (auto) Absolute Neuts (auto) Absolute Nucleated RBC Nucleated RBC % (auto) Hold Purple Top SEE NOTE D-Dimer High Sensitivty 49371 O2 Saturation 81.0 ABG pH at Pt Temp 7.46 H ABG pCO2 at Pt Temp 35 ABG pO2 at Pt Temp 52 L ABG HCO3 26 ABG Base Excess (Actual) 2.7 Sodium Potassium Chloride Carbon Dioxide Anion Gap BUN Creatinine Estim Creat Clear Calc Estimated GFR Random Glucose Calcium Magnesium Total Bilirubin AST ALT Alkaline Phosphatase Total Protein Albumin Microbiology Microbiology Results: Microbiology 03/30/24 05:07 Blood - Venous Blood Culture - Preliminary No growth after 48 hours. 03/30/24 05:07 Blood - Venous Blood Culture - Preliminary No growth after 48 hours. 03/28/24 11:31 Blood - Venous Blood Culture - Final Streptococcus viridans group 03/28/24 10:38 Blood - Venous Blood Culture - Final Coag negative Staphylococcus 03/28/24 Unknown Urine Catheterized - Straight Catheter Urine Culture - Final No growth. Progress Note: A&P Assessment and plan (1) Ileus: Status: Acute (2) Pulmonary aspiration: Status: Acute (3) Primary sclerosing cholangitis: Status: Acute (4) Ulcerative colitis: Status: Acute (5) Acute respiratory failure with hypoxia: Status: Acute Plan Assessment: 39-year-old gentleman with underlying primary sclerosing cholangitis/ulcerative colitis admitted with back pain and hyperammonemic seizure with hospital course complicated by ileus and hypoxic respiratory failure secondary to pulmonary aspiration Plan: Neuro: Seizure likely secondary to elevated ammonia level. Evaluated by neurology service and deemed not require antiepileptic regimen. Cardiac: No acute issues. Pulmonary: Acute hypoxic respiratory failure secondary to pulmonary aspiration on the background of ileus now requiring BiPAP support, improving, continue to titrate off as tolerated. Renal: No acute issues. Endo: No acute issues. GI: Ileus with large stool burden in the colon with poor response to enemas. Evaluated by General surgery and Gastroenterology. Planned for bedside flexible sigmoidoscopy in am. ID: No evidence of sepsis. BiPAP and hypoxia for acute pulmonary aspiration, already improving. Heme/Onc: No acute issues. Psych: No acute issues. Miscellaneous: No acute issues. Prophylaxis: Lovenox Diet: NPO Critical care time spent: 60 minute Quality Stroke Does the patient have a stroke diagnosis?: No VTE Prior VTE?: No VTE Risk Level:: Medical - moderate - high VTE Device Contraindication: Treatment Not Indicated VTE Drug Contraindication: N/A - Med Ordered
--- NOTE | 2024-04-01 15:28 | P.EN_ITS ---
Event Note Date of Service: 04/01/24 Event Note: Was transferred to the ICU because of low O2 sats earlier now on BiPAP CT scan repeated - similar diffuse dilatation of the small bowel and colon Question of narrowing in the rectosigmoid but there is good amount of air distal to this in the rectum He is passing stools and has flatus If he does not improve, plan to do flex sig tomorrow If there is evidence of mechanical obstruction, plan to do transverse loop colostomy for decompression Abdomen otherwise remains soft even if distended with no guarding Discussed with boxing and pressing supervisor KUB ordered for the AM Time Spent With Patient Time: Total time managing care of this patient today ____ minutes.
--- NOTE | 2024-04-01 16:45 | PC.NURSE ---
Patient given 2x enema, lactulose & then mineral oil (see MAR for times) with good effect. Patient had very large BM post lactulose enema, semi-formed & arteaga, then continued to have liquid stools, large amt x4. Patient also had one episode of urinary incontinence. Full care given, condom cath put on to be able to monitor I&O. Dr Bradley came to bedside - updated MD about BMs. Plan for Sigmoidoscopy for 04/02/24. Abdominal distention vastly improved after multiple stools. Dr Rhodes ordered D-dimer, also questioning PE - D-dimer result - [id number], reported to Dr Rhodes @ approx 1145, Order for CT of abd & chest with contrast. CT done at approx 1pm. Patient tolerated test on bipap, with RT at bedside for transport. Mother at bedside with patient for much of the day, update about plan of care & education done at bedside with mother and patient. Patient verbalized understanding plan for tests & enemas, and need to keep bipap mask on. Patient anxious at times about bipap mask. RT & Dr Rhodes were at bedside weaning bipap, hoping wean to high-flow. Patient given mouth swabs frequently and kept NPO. Mepelex put on nose under mask for prevention of skin injuries. CT Results noted at approx 1620, - Extensive bilateral pulmonary emboli with saddle embolus in the right and left main and lower lobe pulmonary artery. Dr Rhodes read report & ordered heparin drip for treatment. Report given to Vanessa GUERRIER at at change of shift.
[2024-04-01] MEDS: Heparin Sodium,Porcine/1/2NS 25,000 UNIT/250 ML IV.SOLN 8.68 UNIT IVCONT (17:06)
[2024-04-01 17:12] LABS: INTERNATIONAL NORM RATIO 1.2 (0.9-1.1); Prothrombin Time 14.7 SEC (11.1-13.3)
[2024-04-01 17:14] LABS: PTT Heparin Drip 29.5 SEC (53-77.9)
[2024-04-01 17:16] LABS: B Type Natriuretic Peptide 83 pg/mL (<100); Troponin-I High Sensitivity 37.4 ng/L (<3.5-35.0)
[2024-04-01 18:38] LABS: Vancomycin Trough 10.5 mcg/mL (10.0-20.0)
[2024-04-01] MEDS: fentaNYL citrate/PF 100 MCG/2 ML VIAL 50 MCG IVPUSH ×2 (19:56→23:31)
[2024-04-01] MEDS: levoFLOXacin/D5W 500 MG/100 ML PIGGYBACK 100 MG IV (19:57)
[2024-04-01 23:41] LABS: PTT Heparin Drip 39.4 SEC (53-77.9)
[2024-04-02] VITALS (19 sets, daily range): BP systolic 110–135; BP diastolic 62–93; PULSE 90–120; RESP 20–43; TEMP 36.7–37.3; O2SAT 91–96
[2024-04-02 05:12] LABS: MANUAL DIFF FLAG NO
[2024-04-02 05:14] LABS: Basophils Percent Auto 0.1 % (0-2); Eosinophils Percent Auto 0.1 % (0-4); Hematocrit 43.1 % (42.0-52.0); Hemoglobin 14.4 g/dl (14.0-18.0); Imm Gran Abs Auto 0.04 X10*3/uL (0.00-0.03); Imm Gran Pct Auto 0.4 % (0.0-0.4); Lymphocytes Absolute Auto 0.7 X10*3/uL (1.2-4.9); Lymphocytes Percent Auto 6.5 % (20-40); Mean Corpuscular HGB Conc 33.4 g/dl (31.0-36.0); Mean Corpuscular Hemoglobin 30.4 pg (27.0-33.0); Mean Corpuscular Volume 91.1 fL (80.0-98.0); Mean Platelet Volume 10.3 fL (9.4-12.4); Monocytes Absolute Auto 1.1 X10*3/uL (0.1-1.2); Monocytes Percent Auto 10.8 % (2-11); Neutrophils Absolute Auto 8.4 x10*3/uL (2.0-8.3); Neutrophils Percent Auto 82.1 % (45-73); Platelet Count 187 X10*3/uL (160-400); Red Blood Count 4.73 X10*6/uL (4.60-5.80); Red Cell Distribution Width 13.2 % (11.0-16.0); White Blood Count 10.2 X10*3/uL (4.8-10.8)
[2024-04-02 05:18] LABS: VBG Base Excess 2.3 mmol/L; VBG HCO3 24 mmol/L (22-26); VBG pCO2 31 mmHg; VBG pO2 88 mmHg
[2024-04-02 05:19] LABS: INTERNATIONAL NORM RATIO 1.4 (0.9-1.1); Prothrombin Time 17.1 SEC (11.1-13.3)
[2024-04-02 05:21] LABS: Venous Blood Gas Refer to POC result
[2024-04-02 05:23] LABS: Ammonia 47 umol/L (13-55)
[2024-04-02 05:28] LABS: Alanine Aminotransferase 51 U/L (0-40); Albumin Level 3.4 g/dL (3.5-5.0); Alkaline Phosphatase 199 U/L (39-117); Anion Gap 16 (12-20); Aspartate Amino Transferase 75 U/L (5-37); Bilirubin Total 1.6 mg/dL (0.0-1.0); Blood Urea Nitrogen 35 mg/dL (9-16); Calcium 9.2 mg/dL (8.4-10.2); Carbon Dioxide 25 mmol/L (22-29); Chloride 113 mmol/L (96-108); Creatinine Clr Calc Pharmacy 108.5; Estimated Glomerular Filt Rate > 60; Glucose Random 97 mg/dL (60-115); Magnesium 2.2 mg/dL (1.6-2.6); Phosphorus 3.1 mg/dL (2.7-4.5); Potassium 3.7 mmol/L (3.3-5.1); Sodium 150 mmol/L (135-145); Total Protein 6.4 g/dL (6.5-8.0)
[2024-04-02 05:41] LABS: PTT Heparin Drip 42.5 SEC (53-77.9)
[2024-04-02] MEDS: Pantoprazole Sodium 40 MG/10 ML VIAL IVPUSH ×2 (05:57→15:23)
[2024-04-02] MEDS: Albumin Human 25 % 100 ML IV ×2 (05:57→11:28)
[2024-04-02] MEDS: 0.9 % Sodium Chloride Flush 3 ML SYRINGE IVFLUSH (08:12)
--- NOTE | 2024-04-02 08:53 | PM.PNGS ---
Subjective Subjective Date of Service: 04/02/24 Interval history: Still in the ICU As per staff, clinically better overall Patient says he has no abdominal pain Passing good amounts of gas, has had BMs He feels much less bloated Asking for oral intake Appears more alert although still short of breath Physical Exam Vital Signs: Vital Signs: Last Vital Signs Temp 98.5 F 04/02/24 08:00 Pulse 111 H 04/02/24 08:00 Resp 24 H 04/02/24 08:04 BP 122/87 04/02/24 08:00 Pulse Ox 93 04/02/24 08:00 O2 Del Method High Flow Nasal C annula 04/02/24 08:00 O2 Flow Rate 50 04/02/24 07:00 FiO2 50 04/02/24 08:00 BMI result Body Mass Index 23.5 Const: Other: Still with some shortness of breath Resp: Other: Some shortness of breath Cardio: Rate: tachycardic GI: Other: Abdomen is soft, much less distended, no guarding, no rebound, no tenderness Objective Data Active Medications Acetaminophen (Acetaminophen 325 Mg Tablet) 650 mg PO Q6H PRN PRN Reason: Pain, Mild (Pain Scale 1-3) Heparin Sodium (Porcine) (Heparin Sodium,Porcine 5,000 Unit/Ml Vial) 2,500 unit 40 unit/kg (2500 unit) IVPUSH PROTOCOL BOLUS PRN; Protocol PRN Reason: 40 unit/kg - Heparin Protocol Heparin Sodium (Porcine) (Heparin Sodium,Porcine 5,000 Unit/Ml Vial) 5,000 unit 80 unit/kg (5000 unit) IVPUSH PROTOCOL BOLUS PRN; Protocol PRN Reason: 80 unit/kg - Heparin Protocol Heparin Sodium/Sodium Chloride (Heparin Sodium,Porcine/1/2ns) 25,000 unit in 250 mls @ 0 mls/hr IVCONT .Q0M [facility]; Protocol Last Titration: 04/02/24 05:50 Dose: 18 units/kg/hr, 11.16 mls/hr Documented By: ERENDIRA Co-signed By: SUSANNA Albumin Human (Kedbumin 25 %) 100 mls @ 100 mls/hr IV Q6H [facility] Stop: 04/02/24 12:44 Last Infusion: 04/02/24 07:26 Dose: Infused Documented By: DAREK Multivitamins/Vitamin C (Multivitamin Tablet) 1 tab PO DAILY [facility] Last Admin: 04/02/24 07:25 Dose: Not Given Documented By: DAREK Non-Admin Reason: NPO Ondansetron HCl (Ondansetron Hcl 4 Mg/2 Ml Vial) 4 mg IVPUSH Q8H PRN PRN Reason: Nausea and Vomiting Last Admin: 03/29/24 21:18 Dose: 4 mg Documented By: GLENIS Pantoprazole Sodium (Pantoprazole Sodium 40 Mg/10 Ml Vial) 40 mg IVPUSH BID@0630,1630 [facility] Last Admin: 04/02/24 05:57 Dose: 40 mg Documented By: TARANO Sodium Chloride (0.9 % Sodium Chloride Flush 3 Ml Syringe) 3 ml IVFLUSH QSHIFT [facility] Last Admin: 04/02/24 08:12 Dose: 3 ml Documented By: DAREK Labs 04/02/24 04:50 04/02/24 04:50 Labs: Laboratory Results - last 24 hr 04/01/24 04/01/24 04/01/24 09:22 11:18 16:47 MCV MCH MCHC RDW Plt Count MPV Immature Gran % (Auto) Neut % (Auto) Lymph % (Auto) [place] % (Auto) Eos % (Auto) Baso % (Auto) Lymph # (Auto) [place] # (Auto) Eos # (Auto) Baso # (Auto) Abs Immat Gran (auto) Absolute Neuts (auto) Absolute Nucleated RBC Nucleated RBC % (auto) Hold Purple Top SEE NOTE PT 14.7 H D INR 1.2 H aPTT Heparin Protocol 29.5 L D-Dimer High Sensitivty 71181 O2 Saturation 81.0 ABG pH at Pt Temp 7.46 H ABG pCO2 at Pt Temp 35 ABG pO2 at Pt Temp 52 L ABG HCO3 26 ABG Base Excess (Actual) 2.7 VBG pH VBG pCO2 VBG pO2 VBG HCO3 VBG O2 Saturation VBG Base Excess Anion Gap Estim Creat Clear Calc Estimated GFR Random Glucose Calcium Phosphorus Magnesium Total Bilirubin AST ALT Alkaline Phosphatase Ammonia Troponin I High Sens 37.4 H B-Natriuretic Peptide 83 Total Protein Albumin Vancomycin Trough 04/01/24 04/01/24 04/02/24 18:19 23:10 04:50 MCV 91.1 MCH 30.4 MCHC 33.4 RDW 13.2 Plt Count 187 MPV 10.3 Immature Gran % (Auto) 0.4 Neut % (Auto) 82.1 H Lymph % (Auto) 6.5 L [place] % (Auto) 10.8 Eos % (Auto) 0.1 Baso % (Auto) 0.1 Lymph # (Auto) 0.7 L [place] # (Auto) 1.1 Eos # (Auto) 0.0 Baso # (Auto) 0.0 Abs Immat Gran (auto) 0.04 H Absolute Neuts (auto) 8.4 H Absolute Nucleated RBC 0.000 Nucleated RBC % (auto) 0.0 Hold Purple Top PT 17.1 H INR 1.4 H aPTT Heparin Protocol 39.4 L D 42.5 L D-Dimer High Sensitivty O2 Saturation ABG pH at Pt Temp ABG pCO2 at Pt Temp ABG pO2 at Pt Temp ABG HCO3 ABG Base Excess (Actual) VBG pH VBG pCO2 VBG pO2 VBG HCO3 VBG O2 Saturation VBG Base Excess Anion Gap 16 Estim Creat Clear Calc 108.5 Estimated GFR > 60 Random Glucose 97 Calcium 9.2 Phosphorus 3.1 Magnesium 2.2 Total Bilirubin 1.6 H AST 75 H ALT 51 H Alkaline Phosphatase 199 H Ammonia 47 Troponin I High Sens B-Natriuretic Peptide Total Protein 6.4 L Albumin 3.4 L Vancomycin Trough 10.5 04/02/24 05:11 MCV MCH MCHC RDW Plt Count MPV Immature Gran % (Auto) Neut % (Auto) Lymph % (Auto) [place] % (Auto) Eos % (Auto) Baso % (Auto) Lymph # (Auto) [place] # (Auto) Eos # (Auto) Baso # (Auto) Abs Immat Gran (auto) Absolute Neuts (auto) Absolute Nucleated RBC Nucleated RBC % (auto) Hold Purple Top PT INR aPTT Heparin Protocol D-Dimer High Sensitivty O2 Saturation ABG pH at Pt Temp ABG pCO2 at Pt Temp ABG pO2 at Pt Temp ABG HCO3 ABG Base Excess (Actual) VBG pH 7.50 H VBG pCO2 31 VBG pO2 88 VBG HCO3 24 VBG O2 Saturation 98.0 VBG Base Excess 2.3 Anion Gap Estim Creat Clear Calc Estimated GFR Random Glucose Calcium Phosphorus Magnesium Total Bilirubin AST ALT Alkaline Phosphatase Ammonia Troponin I High Sens B-Natriuretic Peptide Total Protein Albumin Vancomycin Trough Microbiology Microbiology Results: Microbiology 03/30/24 05:07 Blood Culture - Preliminary Blood - Venous No growth after 48 hours. 03/30/24 05:07 Blood Culture - Preliminary Blood - Venous No growth after 48 hours. Procedures Date of Service Date of Service: 04/02/24 Progress Note: A&P Assessment and plan (1) Abdominal distension: Status: Acute Assessment and Plan: Much improved this morning Mildly distended and much softer No tenderness, no guarding, no rebound I have reviewed his CAT scan from yesterday - official report mentions question of small-bowel obstruction but clinically not obstructed from the small bowel as he has large amounts of gas in the colon; he is passing stools Marked improvement in his abdominal exam NG tube has been removed Okay to start on clear liquids We will hold off on flex sig Overall clinical picture likely from severe ileus, much improved On heparin drip for PE Rest of care as per the postmaster relief Surgical service willl continue to follow Time Spent With Patient Time: Total time managing care of this patient today ____ minutes. Quality Stroke Does the patient have a stroke diagnosis?: No VTE Prior VTE?: No VTE Risk Level:: Medical - moderate - high VTE Device Contraindication: Treatment Not Indicated VTE Drug Contraindication: N/A - Med Ordered
--- NOTE | 2024-04-02 10:17 | P.PNCC_ITS ---
Subjective Subjective Date of Service: 04/02/24 Interval History: 39-year-old gentleman with underlying ulcerative colitis, primary sclerosing cholangitis, osteoporosis, admitted on 02/27/2024 with low back pain and seizure- like activity. Patient was evaluated by Neurology and seizure was deemed to be secondary to hyperammonemia. His hospital course significant for profound ileus, evaluated by both Gastroenterology and General surgery Services and managed conservatively. On 04/01/2024 around 09:30 patient with sudden onset of hypoxia likely secondary to aspiration event refractory to high-flow nasal cannula support requiring initiation of BiPAP and transferred to intensive care unit. In the intensive care unit with improving noninvasive positive pressure ventilatory support requirements, titrated down to high-flow nasal cannula. CT angio chest demonstrated bilateral pulmonary emboli. Patient started on heparin drip. Lower extremity DVT study is positive. CT abdomen showed significantly distended bowel with? Transition point, re-evaluate by General surgery and deemed not to require any procedure. Abdominal distension and FiO2 requirements have improved. Critical Care Time (minutes): 0 Physical Exam 2 Vital Signs: Vital Signs: Last Vital Signs Temp 98.5 F 04/02/24 08:00 Pulse 115 H 04/02/24 10:00 Resp 31 H 04/02/24 10:00 BP 134/89 04/02/24 10:00 Pulse Ox 91 L 04/02/24 10:00 O2 Del Method High Flow Nasal C annula 04/02/24 10:00 O2 Flow Rate 50 04/02/24 10:00 FiO2 70 04/02/24 10:00 BMI result Body Mass Index 23.5 Const: General: no acute distress, alert and awake Eyes: Sclerae: sclerae normal EOM: EOMs intact bilaterally Neck: Neck: Yes no lymphadenopathy, Yes trachea midline and Yes supple Resp: Effort & Inspection: normal respiratory effort and no respiratory distress Auscultation: clear to auscultation bilaterally Cardio: Rate: tachycardic Rhythm: regular rhythm Heart sounds: no gallops, no murmurs and no rubs GI: Inspection: Yes distended Palpation (GI): Soft to palpation and Other GI palpation findings present ( Nontender) Auscultation: normal bowel sounds Extrem: General: Yes no pedal edema, No clubbing and No cyanosis Objective Data Labs 04/02/24 04:50 04/02/24 04:50 Labs: Laboratory Results - last 24 hr 04/01/24 04/01/24 04/01/24 11:18 16:47 18:19 WBC RBC Hgb Hct MCV MCH MCHC RDW Plt Count MPV Immature Gran % (Auto) Neut % (Auto) Lymph % (Auto) [place] % (Auto) Eos % (Auto) Baso % (Auto) Lymph # (Auto) [place] # (Auto) Eos # (Auto) Baso # (Auto) Abs Immat Gran (auto) Absolute Neuts (auto) Absolute Nucleated RBC Nucleated RBC % (auto) Hold Purple Top SEE NOTE PT 14.7 H D INR 1.2 H aPTT Heparin Protocol 29.5 L D-Dimer High Sensitivty 22377 VBG pH VBG pCO2 VBG pO2 VBG HCO3 VBG O2 Saturation VBG Base Excess Sodium Potassium Chloride Carbon Dioxide Anion Gap BUN Creatinine Estim Creat Clear Calc Estimated GFR Random Glucose Calcium Phosphorus Magnesium Total Bilirubin AST ALT Alkaline Phosphatase Ammonia Troponin I High Sens 37.4 H B-Natriuretic Peptide 83 Total Protein Albumin Vancomycin Trough 10.5 04/01/24 04/02/24 04/02/24 23:10 04:50 05:11 WBC 10.2 RBC 4.73 Hgb 14.4 Hct 43.1 MCV 91.1 MCH 30.4 MCHC 33.4 RDW 13.2 Plt Count 187 MPV 10.3 Immature Gran % (Auto) 0.4 Neut % (Auto) 82.1 H Lymph % (Auto) 6.5 L [place] % (Auto) 10.8 Eos % (Auto) 0.1 Baso % (Auto) 0.1 Lymph # (Auto) 0.7 L [place] # (Auto) 1.1 Eos # (Auto) 0.0 Baso # (Auto) 0.0 Abs Immat Gran (auto) 0.04 H Absolute Neuts (auto) 8.4 H Absolute Nucleated RBC 0.000 Nucleated RBC % (auto) 0.0 Hold Purple Top PT 17.1 H INR 1.4 H aPTT Heparin Protocol 39.4 L D 42.5 L D-Dimer High Sensitivty VBG pH 7.50 H VBG pCO2 31 VBG pO2 88 VBG HCO3 24 VBG O2 Saturation 98.0 VBG Base Excess 2.3 Sodium 150 H Potassium 3.7 Chloride 113 H Carbon Dioxide 25 Anion Gap 16 BUN 35 H Creatinine 0.78 Estim Creat Clear Calc 108.5 Estimated GFR > 60 Random Glucose 97 Calcium 9.2 Phosphorus 3.1 Magnesium 2.2 Total Bilirubin 1.6 H AST 75 H ALT 51 H Alkaline Phosphatase 199 H Ammonia 47 Troponin I High Sens B-Natriuretic Peptide Total Protein 6.4 L Albumin 3.4 L Vancomycin Trough Microbiology Microbiology Results: Microbiology 03/30/24 05:07 Blood - Venous Blood Culture - Preliminary No growth after 48 hours. 03/30/24 05:07 Blood - Venous Blood Culture - Preliminary No growth after 48 hours. 03/28/24 11:31 Blood - Venous Blood Culture - Final Streptococcus viridans group 03/28/24 10:38 Blood - Venous Blood Culture - Final Coag negative Staphylococcus 03/28/24 Unknown Urine Catheterized - Straight Catheter Urine Culture - Final No growth. Progress Note: A&P Assessment and plan (1) Pulmonary emboli: Status: Acute (2) DVT (deep venous thrombosis): Status: Acute (3) Acute respiratory failure with hypoxia: Status: Acute (4) Pulmonary aspiration: Status: Acute (5) Abdominal distension: Status: Acute (6) Ileus: Status: Acute (7) Primary sclerosing cholangitis: Status: Acute (8) Ulcerative colitis: Status: Acute (9) Lumbar compression fracture: Status: Acute (10) Thoracic compression fracture: Status: Acute Plan Assessment: 39-year-old gentleman with underlying primary sclerosing cholangitis/ulcerative colitis admitted with back pain and hyperammonemic seizure with hospital course complicated by ileus and hypoxic respiratory failure secondary to pulmonary aspiration Plan: Neuro: Seizure likely secondary to elevated ammonia level. Evaluated by neurology service and deemed not require antiepileptic regimen. Cardiac: No acute issues. Pulmonary: Acute hypoxic respiratory failure secondary to pulmonary emboli and pulmonary aspiration on the background of ileus initial requiring BiPAP support, now titrated down to high-flow nasal cannula, improving, continue to titrate off as tolerated. Renal: No acute issues. Endo: No acute issues. GI: Ileus with large stool burden in the colon with poor response to enemas. Evaluated by General surgery and Gastroenterology. No plans for procedures at this time. ID: No evidence of sepsis. Heme/Onc: Lower extremity DVT and pulmonary emboli, now on heparin drip. Normal BNP, borderline troponin, oxygenation is improving. Psych: No acute issues. Miscellaneous: No acute issues. Prophylaxis: Heparin drip Diet: Clear liquids Quality Stroke Does the patient have a stroke diagnosis?: No VTE Prior VTE?: No VTE Risk Level:: Medical - moderate - high VTE Device Contraindication: Treatment Not Indicated VTE Drug Contraindication: N/A - Med Ordered
[2024-04-02 11:41] LABS: PTT Heparin Drip 54.6 SEC (53-77.9)
[2024-04-02] MEDS: Dextrose 5 % 1,000 ML 125 ML IVCONT (13:51)
--- NOTE | 2024-04-02 14:26 | PM.EVENT ---
Event Note Date of Service: 04/02/24 Event Note: now in IMC denies abdl pain has been passing more flatus and BMs abd much less distended, soft, nontender still on high flow O2 tolerating clears overall clinical picture more c/w generalized ileus consider advancing diet tomorrow has pulmo issues unlikely to be related to distension now has PE, on heparin drip surgery service will continue to follow Time Spent With Patient Time: Total time managing care of this patient today ____ minutes.
[2024-04-02] MEDS: Heparin Sodium,Porcine/1/2NS 25,000 UNIT/250 ML IV.SOLN 11.16 UNIT IVCONT (15:21)
--- NOTE | 2024-04-02 15:45 | PM.IDPN ---
Subjective Subjective Date of Service: 04/01/24 Critical Care Time (minutes): 15 Comment: he has no complaints Objective Data Labs 04/02/24 04:50 04/02/24 04:50 Labs: Laboratory Results - last 24 hr 04/01/24 04/01/24 04/01/24 16:47 18:19 23:10 WBC RBC Hgb Hct MCV MCH MCHC RDW Plt Count MPV Immature Gran % (Auto) Neut % (Auto) Lymph % (Auto) [place] % (Auto) Eos % (Auto) Baso % (Auto) Lymph # (Auto) [place] # (Auto) Eos # (Auto) Baso # (Auto) Abs Immat Gran (auto) Absolute Neuts (auto) Absolute Nucleated RBC Nucleated RBC % (auto) PT 14.7 H D INR 1.2 H aPTT Heparin Protocol 29.5 L 39.4 L D VBG pH VBG pCO2 VBG pO2 VBG HCO3 VBG O2 Saturation VBG Base Excess Sodium Potassium Chloride Carbon Dioxide Anion Gap BUN Creatinine Estim Creat Clear Calc Estimated GFR Random Glucose Calcium Phosphorus Magnesium Total Bilirubin AST ALT Alkaline Phosphatase Ammonia Troponin I High Sens 37.4 H B-Natriuretic Peptide 83 Total Protein Albumin Vancomycin Trough 10.5 04/02/24 04/02/24 04/02/24 04:50 05:11 11:22 WBC 10.2 RBC 4.73 Hgb 14.4 Hct 43.1 MCV 91.1 MCH 30.4 MCHC 33.4 RDW 13.2 Plt Count 187 MPV 10.3 Immature Gran % (Auto) 0.4 Neut % (Auto) 82.1 H Lymph % (Auto) 6.5 L [place] % (Auto) 10.8 Eos % (Auto) 0.1 Baso % (Auto) 0.1 Lymph # (Auto) 0.7 L [place] # (Auto) 1.1 Eos # (Auto) 0.0 Baso # (Auto) 0.0 Abs Immat Gran (auto) 0.04 H Absolute Neuts (auto) 8.4 H Absolute Nucleated RBC 0.000 Nucleated RBC % (auto) 0.0 PT 17.1 H INR 1.4 H aPTT Heparin Protocol 42.5 L 54.6 D VBG pH 7.50 H VBG pCO2 31 VBG pO2 88 VBG HCO3 24 VBG O2 Saturation 98.0 VBG Base Excess 2.3 Sodium 150 H Potassium 3.7 Chloride 113 H Carbon Dioxide 25 Anion Gap 16 BUN 35 H Creatinine 0.78 Estim Creat Clear Calc 108.5 Estimated GFR > 60 Random Glucose 97 Calcium 9.2 Phosphorus 3.1 Magnesium 2.2 Total Bilirubin 1.6 H AST 75 H ALT 51 H Alkaline Phosphatase 199 H Ammonia 47 Troponin I High Sens B-Natriuretic Peptide Total Protein 6.4 L Albumin 3.4 L Vancomycin Trough Microbiology Microbiology Results: Microbiology 03/30/24 05:07 Blood - Venous Blood Culture - Preliminary No growth after 48 hours. 03/30/24 05:07 Blood - Venous Blood Culture - Preliminary No growth after 48 hours. 03/28/24 11:31 Blood - Venous Blood Culture - Final Streptococcus viridans group 03/28/24 10:38 Blood - Venous Blood Culture - Final Coag negative Staphylococcus 03/28/24 Unknown Urine Catheterized - Straight Catheter Urine Culture - Final No growth. Physical Exam Vital Signs: Vital Signs: Last Vital Signs Temp 99.1 F 04/02/24 11:11 Pulse 104 H 04/02/24 11:11 Resp 32 H 04/02/24 12:15 BP 116/75 04/02/24 11:11 Pulse Ox 96 04/02/24 11:11 O2 Del Method High Flow Nasal C annula 04/02/24 11:11 O2 Flow Rate 50 04/02/24 11:11 FiO2 70 04/02/24 11:11 Oxygen Flow Rate 25 04/01/24 16:30 BMI result Body Mass Index 23.5 Const: General: cooperative HEENT: Head: Yes normal to inspection Face and sinus: Yes normal facial exam Mouth: Normal oral and palatal mucosa present Teeth and gingiva: dentition normal Eyes: General: appearance normal, both eyes and all related structures Pupils: Equal, round and reactive pupils present Resp: Effort & Inspection: normal respiratory effort Cardio: Rate: regular rate Rhythm: regular rhythm GI: Palpation (GI): Soft to palpation and nontender : General: Yes no CVA tenderness Back/Spine/Pelvis: Back: no CVA tenderness Skin: General skin exam: no rashes or lesions noted Neuro: General: moves all extremities Cranial nerves: Yes Equal, round and reactive pupils present Extrem: General: Yes normal to inspection Psych: Appearance: grossly normal Assessment and Plan Assessment and plan (1) DVT (deep venous thrombosis): Problem details: He has 1/2 strep viridans blood ,likely contaminant other coagulase negative staph,definitely contaminant Agree no antibiotics. Status: Acute (2) Pulmonary emboli: Status: Acute Time Spent With Patient Time: Total time managing care of this patient today ____ minutes.
[2024-04-02] MEDS: Acetaminophen 1,000 MG/100 ML PIGGYBACK 400 MG IV (20:41)
[2024-04-02 22:07] LABS: Anion Gap 15 (12-20); Blood Urea Nitrogen 21 mg/dL (9-16); Calcium 8.6 mg/dL (8.4-10.2); Carbon Dioxide 25 mmol/L (22-29); Chloride 108 mmol/L (96-108); Creatinine Clr Calc Pharmacy 130.2; Estimated Glomerular Filt Rate > 60; Glucose Random 118 mg/dL (60-115); Potassium 3.4 mmol/L (3.3-5.1); Sodium 145 mmol/L (135-145)
[2024-04-03] VITALS (10 sets, daily range): BP systolic 111–139; BP diastolic 79–85; PULSE 72–97; RESP 20–24; TEMP 36.3–36.9; O2SAT 93–99
[2024-04-03] MEDS: Pantoprazole Sodium 40 MG/10 ML VIAL IVPUSH ×2 (06:25→15:44)
[2024-04-03 06:51] LABS: MANUAL DIFF FLAG NO
[2024-04-03 06:58] LABS: Venous Blood Gas Refer to POC result
[2024-04-03 07:00] LABS: VBG HCO3 28 mmol/L (22-26); VBG pCO2 38 mmHg; VBG pH 7.48 (7.32-7.43); VBG pO2 59 mmHg
[2024-04-03 07:02] LABS: Basophils Percent Auto 0.2 % (0-2); Eosinophils Absolute Auto 0.2 X10*3/uL (0.0-0.4); Hematocrit 39.3 % (42.0-52.0); Hemoglobin 13.2 g/dl (14.0-18.0); Imm Gran Abs Auto 0.03 X10*3/uL (0.00-0.03); Imm Gran Pct Auto 0.4 % (0.0-0.4); Lymphocytes Absolute Auto 1.3 X10*3/uL (1.2-4.9); Lymphocytes Percent Auto 15.8 % (20-40); Mean Corpuscular HGB Conc 33.6 g/dl (31.0-36.0); Mean Corpuscular Volume 92.3 fL (80.0-98.0); Mean Platelet Volume 10.5 fL (9.4-12.4); Monocytes Absolute Auto 0.8 X10*3/uL (0.1-1.2); Monocytes Percent Auto 9.5 % (2-11); Neutrophils Absolute Auto 6.1 x10*3/uL (2.0-8.3); Neutrophils Percent Auto 72.1 % (45-73); Platelet Count 148 X10*3/uL (160-400); Red Blood Count 4.26 X10*6/uL (4.60-5.80); Red Cell Distribution Width 13.2 % (11.0-16.0); White Blood Count 8.4 X10*3/uL (4.8-10.8)
[2024-04-03 07:10] LABS: PTT Heparin Drip 55.6 SEC (53-77.9)
[2024-04-03 07:12] LABS: Alanine Aminotransferase 40 U/L (0-40); Albumin Level 3.5 g/dL (3.5-5.0); Alkaline Phosphatase 149 U/L (39-117); Anion Gap 10 (12-20); Aspartate Amino Transferase 62 U/L (5-37); Bilirubin Total 1.3 mg/dL (0.0-1.0); Blood Urea Nitrogen 17 mg/dL (9-16); Calcium 8.9 mg/dL (8.4-10.2); Carbon Dioxide 27 mmol/L (22-29); Chloride 108 mmol/L (96-108); Creatinine Clr Calc Pharmacy 138.8; Estimated Glomerular Filt Rate > 60; Glucose Random 102 mg/dL (60-115); Phosphorus 2.1 mg/dL (2.7-4.5); Potassium 3.4 mmol/L (3.3-5.1); Sodium 142 mmol/L (135-145); Total Protein 5.9 g/dL (6.5-8.0)
[2024-04-03] MEDS: 0.9 % Sodium Chloride Flush 3 ML SYRINGE IVFLUSH ×3 (07:50→22:11)
--- NOTE | 2024-04-03 08:59 | P.PNGI_ITS ---
Subjective Subjective Date of Service: 04/03/24 Critical Care Time (minutes): 0 Physical Exam 2 Vital Signs: Vital Signs: Last Vital Signs Temp 98.5 F 04/03/24 07:31 Pulse 72 04/03/24 07:31 Resp 24 H 04/03/24 07:56 BP 114/80 04/03/24 07:31 Pulse Ox 96 04/03/24 07:31 O2 Del Method High Flow Nasal C annula 04/03/24 07:31 O2 Flow Rate 45 04/03/24 07:31 FiO2 55 04/03/24 07:31 Oxygen Flow Rate 25 04/01/24 16:30 BMI result Body Mass Index 23.5 GI: Other: abdomen is soft, much less distended Objective Data Labs 04/03/24 06:46 04/03/24 06:46 Microbiology Microbiology Results: Microbiology 03/30/24 05:07 Blood - Venous Blood Culture - Preliminary No growth after 48 hours. 03/30/24 05:07 Blood - Venous Blood Culture - Preliminary No growth after 48 hours. 03/28/24 11:31 Blood - Venous Blood Culture - Final Streptococcus viridans group 03/28/24 10:38 Blood - Venous Blood Culture - Final Coag negative Staphylococcus 03/28/24 Unknown Urine Catheterized - Straight Catheter Urine Culture - Final No growth. Procedures Date of Service Date of Service: 04/03/24 Progress Note: A&P Assessment and plan (1) Abdominal distension: Status: Acute Assessment and Plan: improved abd distension most c/w ileus stable from GI standpoint multiple other issues: DVT/PE on heparin resp failure/ supplemental O2 back pain, fx's Time Spent With Patient Time: Total time managing care of this patient today ____ minutes. Quality Stroke Does the patient have a stroke diagnosis?: No VTE Prior VTE?: No VTE Risk Level:: Medical - moderate - high VTE Device Contraindication: Treatment Not Indicated VTE Drug Contraindication: N/A - Med Ordered
--- NOTE | 2024-04-03 12:22 | PM.PNGS ---
Subjective Subjective Date of Service: 04/03/24 Interval history: feeling much better - passing gas and stool and abdo softer ate and no nausea wearing cpap and doing ok Physical Exam Vital Signs: Vital Signs: Last Vital Signs Temp 98.5 F 04/03/24 11:14 Pulse 87 04/03/24 11:14 Resp 20 04/03/24 11:17 BP 111/85 04/03/24 11:14 Pulse Ox 94 04/03/24 11:14 O2 Del Method High Flow Nasal C annula 04/03/24 11:14 O2 Flow Rate 40 04/03/24 11:14 FiO2 50 04/03/24 11:14 Oxygen Flow Rate 25 04/01/24 16:30 BMI result Body Mass Index 23.5 GI: Other: softer, less distended nontender Objective Data Active Medications Acetaminophen (Acetaminophen 325 Mg Tablet) 650 mg PO Q6H PRN PRN Reason: Pain, Mild (Pain Scale 1-3) Heparin Sodium (Porcine) (Heparin Sodium,Porcine 5,000 Unit/Ml Vial) 2,500 unit 40 unit/kg (2500 unit) IVPUSH PROTOCOL BOLUS PRN; Protocol PRN Reason: 40 unit/kg - Heparin Protocol Heparin Sodium (Porcine) (Heparin Sodium,Porcine 5,000 Unit/Ml Vial) 5,000 unit 80 unit/kg (5000 unit) IVPUSH PROTOCOL BOLUS PRN; Protocol PRN Reason: 80 unit/kg - Heparin Protocol Heparin Sodium/Sodium Chloride (Heparin Sodium,Porcine/1/2ns) 25,000 unit in 250 mls @ 0 mls/hr IVCONT .Q0M [facility]; Protocol Last Titration: 04/03/24 07:30 Dose: 18 units/kg/hr, 11.16 mls/hr Documented By: SILVESTRE Co-signed By: GUANAKO Multivitamins/Vitamin C (Multivitamin Tablet) 1 tab PO DAILY [facility] Last Admin: 04/03/24 07:50 Dose: Not Given Documented By: SILVESTRE Non-Admin Reason: Patient Refused Ondansetron HCl (Ondansetron Hcl 4 Mg/2 Ml Vial) 4 mg IVPUSH Q8H PRN PRN Reason: Nausea and Vomiting Last Admin: 03/29/24 21:18 Dose: 4 mg Documented By: GLENIS Pantoprazole Sodium (Pantoprazole Sodium 40 Mg/10 Ml Vial) 40 mg IVPUSH BID@0630,1630 [facility] Last Admin: 04/03/24 06:25 Dose: 40 mg Documented By: GUANAKO Sodium Chloride (0.9 % Sodium Chloride Flush 3 Ml Syringe) 3 ml IVFLUSH QSHIFT [facility] Last Admin: 04/03/24 07:50 Dose: 3 ml Documented By: SILVESTRE Labs 04/03/24 15:34 04/03/24 15:34 Labs: Laboratory Results - last 24 hr 04/02/24 04/02/24 04/02/24 17:44 18:57 21:33 MCV MCH MCHC RDW Plt Count MPV Immature Gran % (Auto) Neut % (Auto) Lymph % (Auto) [place] % (Auto) Eos % (Auto) Baso % (Auto) Lymph # (Auto) [place] # (Auto) Eos # (Auto) Baso # (Auto) Abs Immat Gran (auto) Absolute Neuts (auto) Absolute Nucleated RBC Nucleated RBC % (auto) Hold Purple Top SEE NOTE aPTT Heparin Protocol 56.0 VBG pH VBG pCO2 VBG pO2 VBG HCO3 VBG O2 Saturation VBG Base Excess Anion Gap 15 Estim Creat Clear Calc 130.2 Estimated GFR > 60 Random Glucose 118 H Calcium 8.6 D Phosphorus Magnesium Total Bilirubin AST ALT Alkaline Phosphatase Total Protein Albumin 04/03/24 04/03/24 06:46 06:53 MCV 92.3 MCH 31.0 MCHC 33.6 RDW 13.2 Plt Count 148 L MPV 10.5 Immature Gran % (Auto) 0.4 Neut % (Auto) 72.1 Lymph % (Auto) 15.8 L [place] % (Auto) 9.5 Eos % (Auto) 2.0 Baso % (Auto) 0.2 Lymph # (Auto) 1.3 [place] # (Auto) 0.8 Eos # (Auto) 0.2 Baso # (Auto) 0.0 Abs Immat Gran (auto) 0.03 Absolute Neuts (auto) 6.1 Absolute Nucleated RBC 0.000 Nucleated RBC % (auto) 0.0 Hold Purple Top aPTT Heparin Protocol 55.6 VBG pH 7.48 H VBG pCO2 38 VBG pO2 59 VBG HCO3 28 H VBG O2 Saturation 90.0 VBG Base Excess 5.0 Anion Gap 10 L Estim Creat Clear Calc 138.8 Estimated GFR > 60 Random Glucose 102 Calcium 8.9 Phosphorus 2.1 L Magnesium 2.0 Total Bilirubin 1.3 H AST 62 H ALT 40 Alkaline Phosphatase 149 H Total Protein 5.9 L Albumin 3.5 Procedures Date of Service Date of Service: 04/03/24 Progress Note: A&P Assessment and plan (1) Abdominal distension: Status: Acute Plan abdo ileus/distension much better - cont with nonnarcotic pain meds for his back now with PE and anticoagulated and on cpap - careful not to encourage more air being pushed into his gi tract bowel regimen and lidocaine back patch Time Spent With Patient Time: Total time managing care of this patient today ____ minutes. Quality Stroke Does the patient have a stroke diagnosis?: No VTE Prior VTE?: No VTE Risk Level:: Medical - moderate - high VTE Device Contraindication: Treatment Not Indicated VTE Drug Contraindication: N/A - Med Ordered
--- NOTE | 2024-04-03 13:25 | P.PNIM_ITS ---
Subjective Subjective Date of Service: 04/03/24 Interval History: Seen and evaluated this morning feels much better but still on high flow O2 moving his bowels tolerating clears no other overnight events Review of Systems Review of Systems: Yes all other systems are reviewed and are negative Physical Exam 2 Vital Signs: Vital Signs: Last Vital Signs Temp 98.5 F 04/03/24 11:14 Pulse 87 04/03/24 11:14 Resp 20 04/03/24 11:17 BP 111/85 04/03/24 11:14 Pulse Ox 94 04/03/24 11:14 O2 Del Method High Flow Nasal C annula 04/03/24 11:14 O2 Flow Rate 40 04/03/24 11:14 FiO2 50 04/03/24 11:14 Oxygen Flow Rate 25 04/01/24 16:30 BMI result Body Mass Index 23.5 Const: Other: Constitutional : Awake, interactive, not in moderate respiratory distress Neck : Normal inspection, Supple Cardiovascular : RRR, no JVP, no lower extremity edema Respiratory : fair bilateral air entry but decreased at bases, no crackles, wheezes, on HF O2 supplement Gastrointestinal: soft, lax, no bowel sounds, Non tender Skin : Warm, Dry Neurological : Alert & oriented x3, No focal deficit Objective Data Active Medications Acetaminophen (Acetaminophen 325 Mg Tablet) 650 mg PO Q6H PRN PRN Reason: Pain, Mild (Pain Scale 1-3) Heparin Sodium (Porcine) (Heparin Sodium,Porcine 5,000 Unit/Ml Vial) 2,500 unit 40 unit/kg (2500 unit) IVPUSH PROTOCOL BOLUS PRN; Protocol PRN Reason: 40 unit/kg - Heparin Protocol Heparin Sodium (Porcine) (Heparin Sodium,Porcine 5,000 Unit/Ml Vial) 5,000 unit 80 unit/kg (5000 unit) IVPUSH PROTOCOL BOLUS PRN; Protocol PRN Reason: 80 unit/kg - Heparin Protocol Heparin Sodium/Sodium Chloride (Heparin Sodium,Porcine/1/2ns) 25,000 unit in 250 mls @ 0 mls/hr IVCONT .Q0M [facility]; Protocol Last Titration: 04/03/24 07:30 Dose: 18 units/kg/hr, 11.16 mls/hr Documented By: SILVESTRE Co-signed By: GUANAKO Multivitamins/Vitamin C (Multivitamin Tablet) 1 tab PO DAILY [facility] Last Admin: 04/03/24 07:50 Dose: Not Given Documented By: SILVESTRE Non-Admin Reason: Patient Refused Ondansetron HCl (Ondansetron Hcl 4 Mg/2 Ml Vial) 4 mg IVPUSH Q8H PRN PRN Reason: Nausea and Vomiting Last Admin: 03/29/24 21:18 Dose: 4 mg Documented By: GLENIS Pantoprazole Sodium (Pantoprazole Sodium 40 Mg/10 Ml Vial) 40 mg IVPUSH BID@0630,1630 [facility] Last Admin: 04/03/24 06:25 Dose: 40 mg Documented By: GUANAKO Sodium Chloride (0.9 % Sodium Chloride Flush 3 Ml Syringe) 3 ml IVFLUSH QSHIFT [facility] Last Admin: 04/03/24 07:50 Dose: 3 ml Documented By: SILVESTRE Labs 04/03/24 06:46 04/03/24 06:46 Labs: Laboratory Results - last 24 hr 04/02/24 04/02/24 04/02/24 17:44 18:57 21:33 MCV MCH MCHC RDW Plt Count MPV Immature Gran % (Auto) Neut % (Auto) Lymph % (Auto) Osborne % (Auto) Eos % (Auto) Baso % (Auto) Lymph # (Auto) Osborne # (Auto) Eos # (Auto) Baso # (Auto) Abs Immat Gran (auto) Absolute Neuts (auto) Absolute Nucleated RBC Nucleated RBC % (auto) Hold Purple Top SEE NOTE aPTT Heparin Protocol 56.0 VBG pH VBG pCO2 VBG pO2 VBG HCO3 VBG O2 Saturation VBG Base Excess Anion Gap 15 Estim Creat Clear Calc 130.2 Estimated GFR > 60 Random Glucose 118 H Calcium 8.6 D Phosphorus Magnesium Total Bilirubin AST ALT Alkaline Phosphatase Total Protein Albumin 04/03/24 04/03/24 06:46 06:53 MCV 92.3 MCH 31.0 MCHC 33.6 RDW 13.2 Plt Count 148 L MPV 10.5 Immature Gran % (Auto) 0.4 Neut % (Auto) 72.1 Lymph % (Auto) 15.8 L Osborne % (Auto) 9.5 Eos % (Auto) 2.0 Baso % (Auto) 0.2 Lymph # (Auto) 1.3 Osborne # (Auto) 0.8 Eos # (Auto) 0.2 Baso # (Auto) 0.0 Abs Immat Gran (auto) 0.03 Absolute Neuts (auto) 6.1 Absolute Nucleated RBC 0.000 Nucleated RBC % (auto) 0.0 Hold Purple Top aPTT Heparin Protocol 55.6 VBG pH 7.48 H VBG pCO2 38 VBG pO2 59 VBG HCO3 28 H VBG O2 Saturation 90.0 VBG Base Excess 5.0 Anion Gap 10 L Estim Creat Clear Calc 138.8 Estimated GFR > 60 Random Glucose 102 Calcium 8.9 Phosphorus 2.1 L Magnesium 2.0 Total Bilirubin 1.3 H AST 62 H ALT 40 Alkaline Phosphatase 149 H Total Protein 5.9 L Albumin 3.5 Assessment and Plan (1) DVT (deep venous thrombosis): Status: Acute (2) Pulmonary emboli: Status: Acute (3) Acute respiratory failure with hypoxia: Status: Acute (4) Ileus: Status: Acute Plan 39M PMH ulcerative colitis, primary sclerosing cholangitis, osteoporosis presented with low back pain, had new onset seizure in ED, also noted to have new compression fractures, now with abd distension n/v, and bacteremia Acute hypoxic respiratory failure 2/2 acute PE Bilateral saddle PE per CTA Doppler US showed LLE DVT Heparin drip running Still on High flow O2, weaning down as tolerated Vascular consult placed Ileus , acute resolved Surgery following Advance diet to full liquids Streptococcal viridans positive blood culture Likely contaminant per ID DC Ceftriaxone Negative repeat cultures New onset seizure Neurology appreciated, likely due to hyper ammonia, no AEDs at this time, continue to monitor Pending EEG reading Ulcerative colitis and PSC complicated by hyperammonia Continue lactulose as tolerated, goal 1-2 BM daily Ursodiol, mesalamine GI input appreciated Back pain due to acute compression fractures of L2 and L5 due to osteoporosis PT rec STR Pain control; Lidocaine patch, ATC Tylenol , Oxycodone PRN DVT prophylaxis Lovenox Full Code reason for continued hospitalization: Treating acute hypoxic respiratory failure on high flow pending clinical improvement Quality Stroke Does the patient have a stroke diagnosis?: No VTE Prior VTE?: No VTE Risk Level:: Medical - moderate - high VTE Device Contraindication: Treatment Not Indicated VTE Drug Contraindication: N/A - Med Ordered
[2024-04-03] MEDS: Heparin Sodium,Porcine/1/2NS 25,000 UNIT/250 ML IV.SOLN 11.16 UNIT IVCONT (14:21)
[2024-04-03] MEDS: Cyclobenzaprine HCl 5 MG TABLET PO (14:23)
[2024-04-03] MEDS: Lidocaine 4 % Patch ADH..PATCH 1 PATCH TRANSDERMA (14:26)
[2024-04-03] MEDS: UrsodioL 300 MG CAPSULE PO ×2 (15:44→21:59)
[2024-04-03] MEDS: Acetaminophen 325 MG TABLET 975 MG PO (15:44)
[2024-04-03 15:49] LABS: Hematocrit 42.2 % (42.0-52.0); Hemoglobin 14.2 g/dl (14.0-18.0); Mean Corpuscular HGB Conc 33.6 g/dl (31.0-36.0); Mean Corpuscular Hemoglobin 30.9 pg (27.0-33.0); Mean Corpuscular Volume 91.9 fL (80.0-98.0); Mean Platelet Volume 10.5 fL (9.4-12.4); Platelet Count 165 X10*3/uL (160-400); Red Blood Count 4.59 X10*6/uL (4.60-5.80); Red Cell Distribution Width 13.3 % (11.0-16.0)
[2024-04-03 15:58] LABS: Anion Gap 12 (12-20); Blood Urea Nitrogen 13 mg/dL (9-16); Carbon Dioxide 25 mmol/L (22-29); Chloride 107 mmol/L (96-108); Creatinine Clr Calc Pharmacy 138.8; Estimated Glomerular Filt Rate > 60; Glucose Random 102 mg/dL (60-115); Potassium 3.1 mmol/L (3.3-5.1); Sodium 141 mmol/L (135-145)
[2024-04-03] MEDS: Docusate Sodium 100 MG CAPSULE PO (21:59)
[2024-04-04] VITALS (10 sets, daily range): BP systolic 100–121; BP diastolic 67–87; PULSE 73–100; RESP 18–20; TEMP 36–37.2; O2SAT 93–98
[2024-04-04] MEDS: Acetaminophen 325 MG TABLET 975 MG PO ×3 (00:06→17:50)
[2024-04-04] MEDS: Pantoprazole Sodium 40 MG/10 ML VIAL IVPUSH ×2 (06:40→17:49)
[2024-04-04 07:40] LABS: PTT Heparin Drip 66.7 SEC (53-77.9)
[2024-04-04] MEDS: Docusate Sodium 100 MG CAPSULE PO ×2 (09:33→20:29)
[2024-04-04] MEDS: UrsodioL 300 MG CAPSULE PO ×3 (09:33→20:29)
[2024-04-04] MEDS: Multivitamin TABLET 1 TAB PO (09:33)
[2024-04-04] MEDS: Lidocaine 4 % Patch ADH..PATCH 1 PATCH TRANSDERMA (09:33)
[2024-04-04] MEDS: Mesalamine 400 MG CAP.DRTAB. 2400 MG PO (09:36)
[2024-04-04] MEDS: 0.9 % Sodium Chloride Flush 3 ML SYRINGE IVFLUSH ×2 (09:37→17:50)
--- NOTE | 2024-04-04 11:02 | P.PNGI_ITS ---
Subjective Subjective Date of Service: 04/04/24 Interval History: tolerating full liquids some discomfort form a hemorrhoid Critical Care Time (minutes): 0 Physical Exam 2 Vital Signs: Vital Signs: Last Vital Signs Temp 98.0 F 04/04/24 07:46 Pulse 82 04/04/24 07:46 Resp 18 04/04/24 08:04 BP 116/73 04/04/24 07:46 Pulse Ox 96 04/04/24 07:46 O2 Del Method High Flow Nasal C annula 04/04/24 07:46 O2 Flow Rate 40 04/04/24 07:46 FiO2 40 04/04/24 07:46 Oxygen Flow Rate 25 04/01/24 16:30 BMI result Body Mass Index 23.5 GI: Other: abdomen is soft and nontender Objective Data Labs 04/03/24 15:34 04/03/24 15:34 Labs: Laboratory Results - last 24 hr 04/03/24 04/04/24 15:34 06:39 WBC 9.0 RBC 4.59 L Hgb 14.2 Hct 42.2 MCV 91.9 MCH 30.9 MCHC 33.6 RDW 13.3 Plt Count 165 MPV 10.5 Absolute Nucleated RBC 0.000 Nucleated RBC % (auto) 0.0 aPTT Heparin Protocol 66.7 Sodium 141 Potassium 3.1 L Chloride 107 Carbon Dioxide 25 Anion Gap 12 BUN 13 Creatinine 0.61 Estim Creat Clear Calc 138.8 Estimated GFR > 60 Random Glucose 102 Calcium 9.0 Microbiology Microbiology Results: Microbiology 03/30/24 05:07 Blood - Venous Blood Culture - Final No growth after 5 days. 03/30/24 05:07 Blood - Venous Blood Culture - Final No growth after 5 days. 03/28/24 11:31 Blood - Venous Blood Culture - Final Streptococcus viridans group 03/28/24 10:38 Blood - Venous Blood Culture - Final Coag negative Staphylococcus 03/28/24 Unknown Urine Catheterized - Straight Catheter Urine Culture - Final No growth. Procedures Date of Service Date of Service: 04/04/24 Progress Note: A&P Assessment and plan (1) Abdominal distension: Status: Acute Assessment and Plan: appears improved continue to advance diet continue supportive care. Time Spent With Patient Time: Total time managing care of this patient today ____ minutes. Quality Stroke Does the patient have a stroke diagnosis?: No VTE Prior VTE?: No VTE Risk Level:: Medical - moderate - high VTE Device Contraindication: Treatment Not Indicated VTE Drug Contraindication: N/A - Med Ordered
[2024-04-04] MEDS: Heparin Sodium,Porcine/1/2NS 25,000 UNIT/250 ML IV.SOLN 11.16 UNIT IVCONT (12:16)
--- NOTE | 2024-04-04 13:41 | HO.PM.IMPN ---
Subjective Subjective Date of Service: 04/04/24 Interval History: Seen and evaluated this morning feels much better but still on high flow O2 , weaning down as tolerating moving his bowels tolerating full liquids no other overnight events Review of Systems Review of Systems: Yes all other systems are reviewed and are negative Physical Exam Vital Signs: Vital Signs: Last Vital Signs Temp 97.5 F 04/04/24 11:08 Pulse 88 04/04/24 11:08 Resp 20 04/04/24 13:01 BP 108/74 04/04/24 11:08 Pulse Ox 95 04/04/24 11:08 O2 Del Method High Flow Nasal C annula 04/04/24 11:08 O2 Flow Rate 40 04/04/24 11:08 FiO2 40 04/04/24 11:08 Oxygen Flow Rate 25 04/01/24 16:30 BMI result Body Mass Index 23.5 Const: Other: Constitutional : Awake, interactive, not in moderate respiratory distress Neck : Normal inspection, Supple Cardiovascular : RRR, no JVP, no lower extremity edema Respiratory : fair bilateral air entry but decreased at bases, no crackles, wheezes, on HF O2 supplement Gastrointestinal: soft, lax, no bowel sounds, Non tender Skin : Warm, Dry Neurological : Alert & oriented x3, No focal deficit Objective Data Active Medications Acetaminophen (Acetamin[facility] 325 Mg Tablet) [facility] Admin: 04/04/24 09:33 Dose: 975 mg Documented By: STEPHENIE Cyclobenzaprine HCl (Cyclobenzaprine Hcl 5 Mg Tablet) 5 mg PO TID PRN PRN Reason: Muscle Spasm Last Admin: 04/03/24 14:23 Dose: 5 mg Documented By: DOBROB Docusate Sodium (Docusate Sodium 100 Mg Capsule) 100 mg PO BID [facility] Last Admin: 04/04/24 09:33 Dose: 100 mg Documented By: STEPHNEIE Heparin Sodium (Porcine) (Heparin Sodium,Porcine 5,000 Unit/Ml Vial) 2,500 unit 40 unit/kg (2500 unit) IVPUSH PROTOCOL BOLUS PRN; Protocol PRN Reason: 40 unit/kg - Heparin Protocol Heparin Sodium (Porcine) (Heparin Sodium,Porcine 5,000 Unit/Ml Vial) 5,000 unit 80 unit/kg (5000 unit) IVPUSH PROTOCOL BOLUS PRN; Protocol PRN Reason: 80 unit/kg - Heparin Protocol Heparin Sodium/Sodium Chloride (Heparin Sodium,Porcine/1/2ns) 25,000 unit in 250 mls @ 0 mls/hr IVCONT .Q0M [facility]; Protocol Last Admin: 04/04/24 12:16 Dose: 18 units/kg/hr, 11.16 mls/hr Documented By: STEPHENIE Co-signed By: DUDLEY Lidocaine (Lidocaine 4 % Patch Adh..Patch) 1 patch TRANSDERMA DAILY [facility]; Protocol Last Admin: 04/04/24 09:33 Dose: 1 patch Documented By: STEPHENIE Mesalamine (Mesalamine 400 Mg Cap.Drtab.) 2,400 mg PO DAILY [facility] Last Admin: 04/04/24 09:36 Dose: 2,400 mg Documented By: STEPHENIE Multivitamins/Vitamin C (Multivitamin Tablet) 1 tab PO DAILY [facility] Last Admin: 04/04/24 09:33 Dose: 1 tab Documented By: STEPHENIE Ondansetron HCl (Ondansetron Hcl 4 Mg/2 Ml Vial) 4 mg IVPUSH Q8H PRN PRN Reason: Nausea and Vomiting Last Admin: 03/29/24 21:18 Dose: 4 mg Documented By: GLENIS Pantoprazole Sodium (Pantoprazole Sodium 40 Mg/10 Ml Vial) 40 mg IVPUSH BID@0630,1630 [facility] Last Admin: 04/04/24 06:40 Dose: 40 mg Documented By: GUANAKO Polyethylene Glycol (Polyethylene Glycol 3350 17 Gm Powd.Pack) 17 gm PO DAILY PRN PRN Reason: Constipation Sodium Chloride (0.9 % Sodium Chloride Flush 3 Ml Syringe) 3 ml IVFLUSH QSHIFT [facility] Last Admin: 04/04/24 09:37 Dose: 3 ml Documented By: STEPHENIE Ursodiol (Ursodiol 300 Mg Capsule) 300 mg PO TID [facility] Last Admin: 04/04/24 09:33 Dose: 300 mg Documented By: STEPHENIE Labs 04/03/24 15:34 04/03/24 15:34 Labs: Laboratory Results - last 24 hr 04/03/24 04/04/24 15:34 06:39 MCV 91.9 MCH 30.9 MCHC 33.6 RDW 13.3 Plt Count 165 MPV 10.5 Absolute Nucleated RBC 0.000 Nucleated RBC % (auto) 0.0 aPTT Heparin Protocol 66.7 Anion Gap 12 Estim Creat Clear Calc 138.8 Estimated GFR > 60 Random Glucose 102 Calcium 9.0 Microbiology Microbiology Results: Microbiology 03/30/24 05:07 Blood Culture - Final Blood - Venous No growth after 5 days. 03/30/24 05:07 Blood Culture - Final Blood - Venous No growth after 5 days. Assessment and Plan (1) DVT (deep venous thrombosis): Status: Acute (2) Pulmonary emboli: Status: Acute (3) Acute respiratory failure with hypoxia: Status: Acute (4) Pulmonary aspiration: Status: Acute (5) Ileus: Status: Acute Plan 39M PMH ulcerative colitis, primary sclerosing cholangitis, osteoporosis presented with low back pain, had new onset seizure in ED, also noted to have new compression fractures, now with abd distension n/v, and bacteremia Acute hypoxic respiratory failure 2/2 acute PE Bilateral saddle PE per CTA Doppler US showed LLE DVT Vascular consult placed, no intervention planned Heparin drip running , continue until off HF Still on High flow O2, weaning down as tolerated Ileus , acute resolved GI input appreciated Surgery following Advance diet to regular Streptococcal viridans positive blood culture Likely contaminant per ID DC Ceftriaxone Negative repeat cultures New onset seizure Neurology appreciated, likely due to hyper ammonia, no AEDs at this time, continue to monitor Pending EEG reading Ulcerative colitis and PSC complicated by hyperammonia Continue lactulose as tolerated, goal 1-2 BM daily Ursodiol, mesalamine GI input appreciated Back pain due to acute compression fractures of L2 and L5 due to osteoporosis PT rec STR Pain control; Lidocaine patch, ATC Tylenol , Oxycodone PRN DVT prophylaxis Lovenox Full Code reason for continued hospitalization: Treating acute hypoxic respiratory failure on high flow pending clinical improvement Quality Stroke Does the patient have a stroke diagnosis?: No VTE Prior VTE?: No VTE Risk Level:: Medical - moderate - high VTE Device Contraindication: Treatment Not Indicated VTE Drug Contraindication: N/A - Med Ordered
[2024-04-05] VITALS (7 sets, daily range): BP systolic 104–120; BP diastolic 64–83; PULSE 88–100; RESP 16–20; TEMP 36.6–36.8; O2SAT 93–97
[2024-04-05] MEDS: Acetaminophen 325 MG TABLET 975 MG PO ×3 (00:09→15:25)
[2024-04-05] MEDS: 0.9 % Sodium Chloride Flush 3 ML SYRINGE IVFLUSH ×3 (00:10→17:42)
[2024-04-05] MEDS: Pantoprazole Sodium 40 MG/10 ML VIAL IVPUSH (05:44)
[2024-04-05 06:50] LABS: Hemoglobin 13.5 g/dl (14.0-18.0); Mean Corpuscular HGB Conc 34.6 g/dl (31.0-36.0); Mean Corpuscular Hemoglobin 30.5 pg (27.0-33.0); Mean Corpuscular Volume 88.2 fL (80.0-98.0); Mean Platelet Volume 10.7 fL (9.4-12.4); Platelet Count 193 X10*3/uL (160-400); Red Blood Count 4.42 X10*6/uL (4.60-5.80); Red Cell Distribution Width 13.2 % (11.0-16.0); White Blood Count 5.9 X10*3/uL (4.8-10.8)
[2024-04-05 07:04] LABS: B Type Natriuretic Peptide 115 pg/mL (<100)
[2024-04-05 07:10] LABS: Anion Gap 12 (12-20); Blood Urea Nitrogen 12 mg/dL (9-16); Calcium 9.1 mg/dL (8.4-10.2); Carbon Dioxide 24 mmol/L (22-29); Chloride 107 mmol/L (96-108); Creatinine Clr Calc Pharmacy 132.3; Estimated Glomerular Filt Rate > 60; Glucose Random 99 mg/dL (60-115); Potassium 3.5 mmol/L (3.3-5.1); Sodium 139 mmol/L (135-145)
[2024-04-05] MEDS: Apixaban 5 MG TABLET 10 MG PO ×2 (10:23→21:37)
[2024-04-05] MEDS: Docusate Sodium 100 MG CAPSULE PO ×2 (10:23→21:38)
[2024-04-05] MEDS: Multivitamin TABLET 1 TAB PO (10:23)
[2024-04-05] MEDS: UrsodioL 300 MG CAPSULE PO ×3 (10:24→21:37)
[2024-04-05] MEDS: Lidocaine 4 % Patch ADH..PATCH 1 PATCH TRANSDERMA (10:25)
--- NOTE | 2024-04-05 10:28 | MHC.CM.PN ---
PER MD ROUNDS, PT IS EXPECTED TO BE READY TO DC TOMORROW ACUTE [facility] RECOMMENDED REFERRALS OUT, [facility] HAS DECLINED STATING PT DOES NOT QUALIFY FOR THAT LOC [facility] ARE STILL REVIEWING
--- NOTE | 2024-04-05 11:03 | PM.CNGS ---
History of Present Illness Consult details Consult date: 04/05/24 Reason for consult: other (dvt/pe) Narrative: Very complex case of a 32 see her been year old gentleman who previously had a history of ulcerative colitis and most recently had kyphoplasty of T10-T11 and presented to the emergency room for lower back pain. While in the emergency room he had a seizure. Subsequent to that it was discovered that he had an embolus and noted to be a saddle embolus. He was subsequently treated in the intensive care unit. Been on anticoagulation since that time. Has been difficulty breathing but now is on the floor. Has been short of breath when working with physical therapy. But overall appears to be improving. Review of Systems Review of Systems: Yes all other systems are reviewed and are negative Constitutional: Constitutional: Reports no additional constitutional complaints ENT: Reports Normal hearing present Cardiovascular: Cardiovascular: Denies chest pain, Denies chest pain at rest, Denies chest pain with activity, Denies pedal edema and Reports dyspnea Respiratory: Respiratory: Reports cough and Reports dyspnea Gastrointestinal: Gastrointestinal: Denies abdominal pain Musculoskeletal: Musculoskeletal: Denies abnormal gait, Denies muscle cramps and Denies radiating pain into limb Integumentary/Breasts: Skin/Breast: Denies skin ulcer and Denies wounds Neurologic: Reports Normal hearing present and Denies abnormal gait Psychiatric: Psychiatric: Reports no additional psychiatric complaints PMF Past Medical History Medical History (Updated 04/05/24 @ 11:09 by Cipriano Tiwari MD) Abdominal distension Bacteremia Ulcerative colitis Primary sclerosing cholangitis Family History Family history: reviewed and not pertinent Surgical History Surgical History History of hand surgery H/O right inguinal hernia repair H/O colonoscopy Social History Social History Household Members: Family Household Members Other:: Parents. Housing: House Do you presently have visiting nurse or other home services: No Patient Tobacco Use Status: Never used Tobacco service: No Meds Allergies Allergy/AdvReac Type Severity Reaction Status Date / Time No Known Allergies Allergy Verified 03/28/24 09:09 Active Medications: Current Medications Acetaminophen (Acetaminophen 325 Mg Tablet) 975 mg PO [facility] Last Admin: 06/03/24 10:24 Dose: 975 mg Apixaban (Apixaban 5 Mg Tablet) 10 mg PO BID [facility] Stop: 04/11/24 21:01 Last Admin: 04/05/24 10:23 Dose: 10 mg Cyclobenzaprine HCl (Cyclobenzaprine Hcl 5 Mg Tablet) 5 mg PO TID PRN PRN Reason: Muscle Spasm Last Admin: 04/03/24 14:23 Dose: 5 mg Docusate Sodium (Docusate Sodium 100 Mg Capsule) 100 mg PO BID [facility] Last Admin: 04/05/24 10:23 Dose: 100 mg Lidocaine (Lidocaine 4 % Patch Adh..Patch) 1 patch TRANSDERMA DAILY [facility]; Protocol Last Admin: 04/05/24 10:25 Dose: 1 patch Mesalamine (Mesalamine 400 Mg Cap.Drtab.) 2,400 mg PO DAILY [facility] Last Admin: 04/04/24 09:36 Dose: 2,400 mg Multivitamins/Vitamin C (Multivitamin Tablet) 1 tab PO DAILY [facility] Last Admin: 04/05/24 10:23 Dose: 1 tab Ondansetron HCl (Ondansetron Hcl 4 Mg/2 Ml Vial) 4 mg IVPUSH Q8H PRN PRN Reason: Nausea and Vomiting Last Admin: 03/29/24 21:18 Dose: 4 mg Polyethylene Glycol (Polyethylene Glycol 3350 17 Gm Powd.Pack) 17 gm PO DAILY PRN PRN Reason: Constipation Sodium Chloride (0.9 % Sodium Chloride Flush 3 Ml Syringe) 3 ml IVFLUSH QSHIFT [facility] Last Admin: 04/05/24 10:24 Dose: 3 ml Ursodiol (Ursodiol 300 Mg Capsule) 300 mg PO TID [facility] Last Admin: 04/05/24 10:24 Dose: 300 mg Home Medications ?Medication ?Instructions ?Recorded ?Confirmed ?Last Taken ?Type mesalamine 1.2 gram tablet,delayed 2.4 g PO DAILY 12/09/22 03/28/24 03/28/24 History release (Lialda) ursodiol 250 mg tablet 250 mg PO QID 12/09/22 03/28/24 03/28/24 History multivitamin 1 tab PO DAILY 03/28/24 03/28/24 Unknown History Physical Exam Vital Signs: Vital Signs: Last Vital Signs Temp 98.2 F 04/05/24 07:49 Pulse 89 04/05/24 07:49 Resp 20 04/05/24 07:49 BP 120/83 04/05/24 07:49 Pulse Ox 94 04/05/24 07:49 O2 Del Method Nasal Cannula 04/05/24 07:49 O2 Flow Rate 2 04/05/24 07:49 FiO2 40 04/04/24 11:08 Oxygen Flow Rate 25 04/01/24 16:30 BMI result Body Mass Index 23.5 Const: General: cooperative, healthy appearing and comfortable Orientation/consciousness: oriented to person, oriented to place and oriented to time HEENT: Head: Yes normal to inspection Neck: Neck: Yes normal visual inspection Carotids: no bruits Resp: Effort & Inspection: able to speak in complete sentences and abnormal respiratory pattern Auscultation: no crackles, no rales, no rhonchi, no wheezes and diminished lung sounds Cardio: Rate: regular rate Rhythm: regular rhythm Heart sounds: S1 normal heart sound present and S2 normal heart sound present Bruits: no carotid bruits Peripheral pulses: Peripheral pulses 2+ throughout GI: Inspection: Yes normal to inspection Skin: Wounds: no wounds Hair: normal Neuro: General: oriented to person, oriented to place and oriented to time Cranial nerves: Yes CN's II-XII intact bilaterally and Yes Normal hearing present Cognition (Neuro): normal cognition Motor exam (neuro): 5/5 motor strength present throughout Extrem: Other: venous exam: No significant superficial varicosities or spider telangiectasias, minimal edema General: No clubbing, No cyanosis and No edema Psych: Appearance: grossly normal Mental Status: mental status grossly normal Speech and movement: Normal speech and movement present Results Labs 04/05/24 06:37 04/05/24 06:37 Labs: Abnormal lab results 04/05/24 Range/Units 06:37 RBC 4.42 L (4.60-5.80) X10*6/uL Hgb 13.5 L (14.0-18.0) g/dl Hct 39.0 L (42.0-52.0) % B-Natriuretic Peptide 115 H (<100) pg/mL Short CBC 04/05/24 Range/Units 06:37 WBC 5.9 (4.8-10.8) X10*3/uL Hgb 13.5 L (14.0-18.0) g/dl Hct 39.0 L (42.0-52.0) % Plt Count 193 (160-400) X10*3/uL BMP 04/05/24 06:37 Sodium 139 Potassium 3.5 Chloride 107 Carbon Dioxide 24 BUN 12 Creatinine 0.64 Calcium 9.1 Urine 03/28/24 Range/Units 11:31 Urine Color Dark Yellow Urine Appearance Clear Urine pH 6.0 (5.0-9.0) Ur Specific Allen >= 1.030 H (1.005-1.025) Urine Protein 30 (1+) H (Neg-Trace) mg/dL Urine Glucose (UA) Negative (Negative) mg/dL All other labs normal. Assessment and Plan (1) Pulmonary emboli: Qualifiers: Pulmonary embolism type: saddle Chronicity: acute Acute cor pulmonale presence: unspecified Qualified Code(s): I26.92 - Saddle embolus of pulmonary artery without acute cor pulmonale Status: Acute Plan In short patient had a large PE with a saddle embolus. Now that he has stabilized I do think he would be a reasonable candidate for pulmonary embolectomy. I did have an extensive discussion about the procedure with the patient. Was quite hesitant about this overall. He has been progressively improving on anticoagulants only. He decided that he would like to manage this conservatively at the current time. I recommend continued anticoagulation. Should there be no improvement may revisit this. Please recall if required. Thank you for allowing us to assist in his care. If there are any questions or concerns please do not hesitate to contact us. Procedures Date of Service Date of Service: 04/05/24
--- NOTE | 2024-04-05 11:20 | HO.PM.IMPN ---
Subjective Subjective Date of Service: 04/05/24 Interval History: Seen and evaluated this morning Feels better, weaned off High flow to 2L moving his bowels tolerating bland diet no other overnight events Review of Systems Review of Systems: Yes all other systems are reviewed and are negative Physical Exam Vital Signs: Vital Signs: Last Vital Signs Temp 98.2 F 04/05/24 07:49 Pulse 89 04/05/24 07:49 Resp 20 04/05/24 07:49 BP 120/83 04/05/24 07:49 Pulse Ox 94 04/05/24 07:49 O2 Del Method Nasal Cannula 04/05/24 07:49 O2 Flow Rate 2 04/05/24 07:49 FiO2 40 04/04/24 11:08 Oxygen Flow Rate 25 04/01/24 16:30 BMI result Body Mass Index 23.5 Const: Other: Constitutional : Awake, interactive, not in distress Neck : Normal inspection, Supple Cardiovascular : RRR, no JVP, no lower extremity edema Respiratory : fair bilateral air entry but decreased at bases, no crackles, wheezes, on 2L NC O2 supplement Gastrointestinal: soft, lax, no bowel sounds, Non tender Skin : Warm, Dry Neurological : Alert & oriented x3, No focal deficit Objective Data Active Medications Acetaminophen (Acet[facility] 325 Mg Tablet) [facility] Admin: 04/05/24 10:24 Dose: 975 mg Documented By: NEETA Apixaban (Apixaban 5 Mg Tablet) 10 mg PO BID [facility] Stop: 04/11/24 21:01 Last Admin: 04/05/24 10:23 Dose: 10 mg Documented By: NEETA Cyclobenzaprine HCl (Cyclobenzaprine Hcl 5 Mg Tablet) 5 mg PO TID PRN PRN Reason: Muscle Spasm Last Admin: 04/03/24 14:23 Dose: 5 mg Documented By: DOBROIsaak Docusate Sodium (Docusate Sodium 100 Mg Capsule) 100 mg PO BID [facility] Last Admin: 04/05/24 10:23 Dose: 100 mg Documented By: NEETA Lidocaine (Lidocaine 4 % Patch Adh..Patch) 1 patch TRANSDERMA DAILY [facility]; Protocol Last Admin: 04/05/24 10:25 Dose: 1 patch Documented By: NEETA Mesalamine (Mesalamine 400 Mg Cap.Drtab.) 2,400 mg PO DAILY [facility] Last Admin: 04/04/24 09:36 Dose: 2,400 mg Documented By: STEPHENIE Multivitamins/Vitamin C (Multivitamin Tablet) 1 tab PO DAILY [facility] Last Admin: 04/05/24 10:23 Dose: 1 tab Documented By: NEETA Ondansetron HCl (Ondansetron Hcl 4 Mg/2 Ml Vial) 4 mg IVPUSH Q8H PRN PRN Reason: Nausea and Vomiting Last Admin: 03/29/24 21:18 Dose: 4 mg Documented By: GLENIS Polyethylene Glycol (Polyethylene Glycol 3350 17 Gm Powd.Pack) 17 gm PO DAILY PRN PRN Reason: Constipation Sodium Chloride (0.9 % Sodium Chloride Flush 3 Ml Syringe) 3 ml IVFLUSH QSHIFT [facility] Last Admin: 04/05/24 10:24 Dose: 3 ml Documented By: NEETA Ursodiol (Ursodiol 300 Mg Capsule) 300 mg PO TID [facility] Last Admin: 04/05/24 10:24 Dose: 300 mg Documented By: NEETA Labs 04/05/24 06:37 04/05/24 06:37 Labs: Laboratory Results - last 24 hr 04/05/24 06:37 MCV 88.2 MCH 30.5 MCHC 34.6 RDW 13.2 Plt Count 193 MPV 10.7 Absolute Nucleated RBC 0.000 Nucleated RBC % (auto) 0.0 aPTT Heparin Protocol 70.0 Anion Gap 12 Estim Creat Clear Calc 132.3 Estimated GFR > 60 Random Glucose 99 Calcium 9.1 B-Natriuretic Peptide 115 H Assessment and Plan (1) DVT (deep venous thrombosis): Status: Acute (2) Pulmonary emboli: Status: Acute (3) Acute respiratory failure with hypoxia: Status: Acute (4) Abdominal distension: Status: Acute (5) Ileus: Status: Acute Plan 39M PMH ulcerative colitis, primary sclerosing cholangitis, osteoporosis presented with low back pain, had new onset seizure in ED, also noted to have new compression fractures, now with abd distension n/v, and bacteremia Acute hypoxic respiratory failure 2/2 acute Bilateral saddle PE per CTA weaned down to 2L NC Doppler US showed LLE DVT Vascular consult placed, no intervention planned at this point, can revisit if not improving DC Heparin drip Start Eliquis full dose Start physical therapy Ileus , acute resolved GI input appreciated Surgery following Advance diet to regular Streptococcal viridans positive blood culture Likely contaminant per ID DC Ceftriaxone Negative repeat cultures New onset seizure Neurology appreciated, likely due to hyper ammonia, no AEDs at this time, continue to monitor Pending EEG reading Ulcerative colitis and PSC complicated by hyperammonia Continue lactulose as tolerated, goal 1-2 BM daily Ursodiol, mesalamine GI input appreciated Back pain due to acute compression fractures of L2 and L5 due to osteoporosis PT rec STR Pain control; Lidocaine patch, ATC Tylenol , Oxycodone PRN DVT prophylaxis Lovenox Full Code reason for continued hospitalization: Treating acute hypoxic respiratory failure from bilateral PE, start physical therapy and arranging safe discharge plan. Quality Stroke Does the patient have a stroke diagnosis?: No VTE Prior VTE?: No VTE Risk Level:: Medical - moderate - high VTE Device Contraindication: Treatment Not Indicated VTE Drug Contraindication: N/A - Med Ordered
[2024-04-05] MEDS: Mesalamine 400 MG CAP.DRTAB. 2400 MG PO (12:05)
[2024-04-06] VITALS: BP 115/76; PULSE 89; RESP 17; TEMP 36.8; O2SAT 94
[2024-04-06] MEDS: Acetaminophen 325 MG TABLET 975 MG PO ×2 (00:25→09:31)
[2024-04-06] MEDS: 0.9 % Sodium Chloride Flush 3 ML SYRINGE IVFLUSH ×2 (00:26→09:32)
[2024-04-06 03:59] VITALS: BP 119/82; PULSE 91; RESP 18; TEMP 36.3; O2SAT 96
[2024-04-06 06:24] LABS: Hematocrit 40.1 % (42.0-52.0); Hemoglobin 13.7 g/dl (14.0-18.0); Mean Corpuscular HGB Conc 34.2 g/dl (31.0-36.0); Mean Corpuscular Hemoglobin 30.9 pg (27.0-33.0); Mean Corpuscular Volume 90.3 fL (80.0-98.0); Mean Platelet Volume 11.4 fL (9.4-12.4); Platelet Count 209 X10*3/uL (160-400); Red Blood Count 4.44 X10*6/uL (4.60-5.80); Red Cell Distribution Width 13.5 % (11.0-16.0); White Blood Count 9.2 X10*3/uL (4.8-10.8)
[2024-04-06 06:26] LABS: Anion Gap 13 (12-20); Blood Urea Nitrogen 14 mg/dL (9-16); Calcium 9.2 mg/dL (8.4-10.2); Carbon Dioxide 24 mmol/L (22-29); Chloride 107 mmol/L (96-108); Creatinine Clr Calc Pharmacy 126.4; Estimated Glomerular Filt Rate > 60; Glucose Random 102 mg/dL (60-115); Potassium 3.9 mmol/L (3.3-5.1); Sodium 140 mmol/L (135-145)
[2024-04-06 08:00] VITALS: BP 125/79; PULSE 81; RESP 16; TEMP 36.3; O2SAT 95
[2024-04-06] MEDS: Mesalamine 400 MG CAP.DRTAB. 2400 MG PO (09:30)
[2024-04-06] MEDS: Multivitamin TABLET 1 TAB PO (09:31)
[2024-04-06] MEDS: Docusate Sodium 100 MG CAPSULE PO (09:31)
[2024-04-06] MEDS: Apixaban 5 MG TABLET 10 MG PO (09:31)
[2024-04-06] MEDS: UrsodioL 300 MG CAPSULE PO (09:31)
[2024-04-06] MEDS: Lidocaine 4 % Patch ADH..PATCH 1 PATCH TRANSDERMA (09:32)
[2024-04-06 11:51] VITALS: BP 108/81; PULSE 84; RESP 20; TEMP 36.4; O2SAT 94
--- NOTE | 2024-04-06 14:27 | PM.DS ---
DS: Providers Provider Date of Service: 04/06/24 Date of admission: 03/28/24 15:58 Primary care physician: Alfosno Sierra MD Consults: 03/28/24 16:22 Consult to Neurology Routine Consulting Provider: [facility] Reason for consultation: New onset tonic-clonic seizure 03/30/24 06:36 Consult to Gastroenterology Stat Consulting Provider: Lacho Eagle Reason for consultation: Hx of UC, coffee ground vomiting, abd distention Has provider been notified: No 03/30/24 06:39 Consult to General Surgery Routine Consulting Provider: [facility] Reason for consultation: hx of UC, severe abdominal distention Has provider been notified: No 03/30/24 08:07 Consult to Infectious Diseases Routine Consulting Provider: [facility] Reason for consultation: gram positive bacteremia 03/30/24 11:13 Consult to Physician Routine Consulting Provider: Boo Foster Reason for consultation: s/p kypho, new fractures, ileus from opiates 04/02/24 12:53 Consult to Vascular Surgery Routine Consulting Provider: [facility] Vascular Services Reason for consultation: Acute PE w severe hypoxemia DS: Diagnosis Discharge Diagnosis (1) DVT (deep venous thrombosis): Status: Acute (2) Pulmonary emboli: Status: Acute (3) Acute respiratory failure with hypoxia: Status: Acute (4) Abdominal distension: Status: Acute (5) Ileus: Status: Acute (6) Pulmonary aspiration: Status: Acute (7) Seizure: Status: Acute (8) Increased ammonia level: Status: Acute DS: Summary Hospital Course Hospital Course: The patient had prolonged hospital stay. for full details please return to EMR. Admission note HPI Pt is a 39-year-old male with a PMH significant for?ulcerative colitis, primary sclerosing cholangitis, osteoporosis, and recent kyphoplasty of T10 and T11 vertebral bodies on 02/05/2024 who presents to the ED for evaluation of lower back pain. Patient states he was in his normal state of health last night when he went to bed, when he woke up this morning had significant lower back pain he rates a 9/10 and found he was unable to move or get up. Denies any recent falls or trauma to his back. While in the ED waiting room patient was sitting in a wheelchair when his mother noticed he was experiencing tonic-clonic like seizure activity. Patient remained in wheelchair and did not fall. Patient was brought into the ED and given 4 mg of Versed that broke the seizure. Patient with no seizure history other than an afebrile seizure when he was an . Patient currently is alert and oriented x4 and resting comfortably in bed. Continues to report lower back pain and difficulty moving his legs, but otherwise says he feels well without any other acute medical complaints. Denies numbness or tingling in extremities. No saddle anesthesia. Denies any change to bowel or bladder habits. No mouth pain or tongue bite. Denies confusion or fuzzy thinking. Denies fever, chills, abdominal pain, though reports one episode of vomiting a small amount of spit this morning. No chest pain/pressure or palpitations. Denies any recent illnesses. No shortness a breath or difficulty breathing. Of note, pt's DEXA scan on 01/14/2024 was -4.2 in lumbar spine. 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 In the ED pt was tachycardic up to 127 and tachypneic up to 22. Labs were significant for leukocytosis of leukocytosis of 15.1, sodium 146, lactic acid 15.2 with repeat 1.1, bilirubin 1.4, AST 179, ALT 228, alk-phos 630, and ammonia 175. Tox screen negative. Negative for flu, RSV, COVID. CXR showed no dense focal consolidation pneumonia, but showed diffuse interstitial lung markings and peribronchial cuffing possible for small airway disease versus interstitial lung disease versus interstitial edema. CT?of head found no acute intracranial pathology. CT of cervical spine found no acute fracture or dislocation. CT of thoracic spine found loss of vertebral body height of T7-T8 and evidence of osteopenia osteoporosis. CT of lumbar spine found new compression fractures at L2 and L5 and worsening compression fracture of L4. Also showed posterior protrusions of superior bodies of L2, L4, L5, and posterior protrusion of superior body of L4 and L3- L4. Abdominal ultrasound redemonstrated echogenic portal triads consistent with primary sclerosing cholangitis. EKG demonstrated sinus tachycardia of 124 but no evidence of significant ST elevations or depressions. Pt was treated with midazolam 2 mg IV x2 doses, Keppra 1000 mg, lactulose, morphine, IVF, rifaximin, azithromycin, and ceftriaxone. Pt will be admitted to the hospital for treatment further evaluation of new onset seizure as well as intractable back pain secondary to new compression fractures. Hospital course # New onset seizure On presentation. evaluated by Neurology who believed it is likely due to hyper ammonia, no seizure medications at this time as EEG did not show any seizure. Avoid high ammonia status. started on bowel regimen. No recurrence of seizure during hospital stay/ # Ulcerative colitis and PSC complicated by hyperammonia Ammonia of 179 at presentation. resolved as the constipation resolved with usage of lactulose with a goal 1-2 BM daily. Kept on his home dose of Ursodiol, mesalamine as he was evaluated by GI who recommended no changes in his current medications and to follow as outpatient. # Abdominal distention due to chronic constipation and Ileus developed in 2 days after admission. Evaluated by Surgery team as abdominal images showed dilation of large intestine with large amount of stool. NGT placed and he was started on bowel regimen. he did finally moved his bowels and felt significant relief after that. Advanced diet to regular with good tolerance. # Acute hypoxic respiratory failure 2/2 acute Bilateral saddle PE per CTA on 04/01 he developed sudden onset hypoxemia upon getting out of bed to chair requiring High flow supplement with no improvement in O2 sat. He went to ICU for BiPAP and closer monitoring. CTA showed bilateral saddle PE. Doppler US showed LLE DVT. Started on Heparin drip with improvement over the course of hospital stay as he was weaned down from High flow to 2L of O2. Vascular surgery evaluated the patient and recommended no intervention at this point, can revisit if not improving. To be discharged on Eliquis 10 mg bid now then 5 mg twice daily for 6 months at least. will need a follow up with PCP as outpatient. # Streptococcal viridans positive blood culture. Likely contaminant per Infectious disease specialist who recommended DC Ceftriaxone. Negative repeated cultures # Back pain due to acute compression fractures of L2 and L5 due to osteoporosis. Pain partially controlled with Lidocaine patch, ATC Tylenol. To follow up as outpatient with PCP for treatment of osteoporosis and possible kyphoplasty if not improving. Discharge plan Continue Eliquis 10 mg twice daily for 5 more days then start 5 mg twice daily to finish 6 months Target 1-2 bowel movements daily, take Colace and Miralax To follow with PCP for compression fracture follow up and Ostoporosis treatment Time Attestation Discharge Coordination Time (in mins): 43 Quality: Safe Use of Opioids Does Pt have an Active Cancer Diagnosis on the Problem List?: No Quality: Stroke Does the patient have a stroke diagnosis?: No Physical Exam Vital Signs: Vital Signs: Last Vital Signs Temp 97.5 F 04/06/24 11:51 Pulse 84 04/06/24 11:51 Resp 20 04/06/24 11:51 BP 108/81 04/06/24 11:51 Pulse Ox 94 04/06/24 11:51 O2 Del Method Nasal Cannula 04/06/24 11:51 O2 Flow Rate 2 04/06/24 11:51 FiO2 40 04/04/24 11:08 Oxygen Flow Rate 25 04/01/24 16:30 BMI result Body Mass Index 23.5 Const: Other: Constitutional : Awake, interactive, not in distress Neck : Normal inspection, Supple Cardiovascular : RRR, no JVP, no lower extremity edema Respiratory : fair bilateral air entry , no crackles, on 2L NC O2 supplement Gastrointestinal: soft, lax, no bowel sounds, Non tender Skin : Warm, Dry Neurological : Alert & oriented x3, No focal deficit DS: Data Data Completed and Pending Labs on day of discharge: Laboratory Results - last 24 hr 04/06/24 05:26 WBC 9.2 RBC 4.44 L Hgb 13.7 L Hct 40.1 L MCV 90.3 MCH 30.9 MCHC 34.2 RDW 13.5 Plt Count 209 MPV 11.4 Absolute Nucleated RBC 0.000 Nucleated RBC % (auto) 0.0 Sodium 140 Potassium 3.9 Chloride 107 Carbon Dioxide 24 Anion Gap 13 BUN 14 Creatinine 0.67 Estim Creat Clear Calc 126.4 Estimated GFR > 60 Random Glucose [address] scan - abdomen: Radiologist's impression: ITS Impressions Lumbar Spine X-Ray 03/28/24 10:00 IMPRESSION: 1. Status post vertebral augmentation of T10 and T11. 2. Loss of height of the superior endplate of L5, chronicity indeterminate. Correlation with physical exam. 3. Redemonstrated loss of height of superior endplate of L4. Chest X-Ray 03/28/24 11:52 IMPRESSION: 1. Diminished lung volume. 2. Diffuse increased interstitial lung marking and peribronchial cuffing might be a small airway disease such as bronchiolitis or interstitial pneumonitis, versus interstitial lung disease versus interstitial edema. No dense focal consolidation pneumonia. Cervical Spine CT 03/28/24 11:53 IMPRESSION: No acute intracranial pathology. EXAMINATION: Noncontrast CT scan of the cervical spine. INDICATION: Altered mental status COMPARISON: None. TECHNIQUE: Helical, multidetector axial images were obtained from the occiput to the upper thorax. Coronal and sagittal reformats of the cervical spine were provided for interpretation. DLP: 349.7 mGy-cm FINDINGS: No acute fractures or dislocations of the cervical spine are seen. Anatomic alignment and positioning of the vertebral bodies and posterior elements is noted. The atlantoaxial joint and craniovertebral articulations are normal without evidence of subluxation. There is no prevertebral soft tissue swelling. The thyroid gland and visualized portions of the lung apices and mediastinum are unremarkable. IMPRESSION: No acute visible fracture or dislocation. Head CT 03/28/24 11:53 IMPRESSION: No acute intracranial pathology. EXAMINATION: Noncontrast CT scan of the cervical spine. INDICATION: Altered mental status COMPARISON: None. TECHNIQUE: Helical, multidetector axial images were obtained from the occiput to the upper thorax. Coronal and sagittal reformats of the cervical spine were provided for interpretation. DLP: 349.7 mGy-cm FINDINGS: No acute fractures or dislocations of the cervical spine are seen. Anatomic alignment and positioning of the vertebral bodies and posterior elements is noted. The atlantoaxial joint and craniovertebral articulations are normal without evidence of subluxation. There is no prevertebral soft tissue swelling. The thyroid gland and visualized portions of the lung apices and mediastinum are unremarkable. IMPRESSION: No acute visible fracture or dislocation. Lumbar Spine CT 03/28/24 11:53 IMPRESSION: Thoracic Spine: 1. There are now sequelae of kyphoplasties in the bodies of T10 and T11. There is loss of vertebral body height of T7 and T8 on the current study, not demonstrated on the prior MRI scan. Bone mineralization is diffusely decreased consistent with osteopenia or osteoporosis. 2. There is hyperkyphosis at the level of T10-T11. There are no acute subluxations. The paravertebral structures are unremarkable. Lumbar Spine: 1. There are compression fractures of the bodies of L2, L4 and L5. The fractures of L2 and L5 are new compared to the prior MRI scan, and there has been interval worsening of the compression fracture of L4. 2. There are posterior protrusions of the superior bodies of L2, L4 and L5 into the spinal canal with central stenosis at these levels as described above. There is posterior protrusion of the superior body of L4 into the spinal canal at L3-L4 with approximately 30-40% central stenosis. The neural foramina appear patent. 3. There is diffuse osteopenia or osteoporosis. 4. There is mild free fluid in the pelvis. Thoracic Spine CT 03/28/24 11:53 IMPRESSION: Thoracic Spine: 1. There are now sequelae of kyphoplasties in the bodies of T10 and T11. There is loss of vertebral body height of T7 and T8 on the current study, not demonstrated on the prior MRI scan. Bone mineralization is diffusely decreased consistent with osteopenia or osteoporosis. 2. There is hyperkyphosis at the level of T10-T11. There are no acute subluxations. The paravertebral structures are unremarkable. Lumbar Spine: 1. There are compression fractures of the bodies of L2, L4 and L5. The fractures of L2 and L5 are new compared to the prior MRI scan, and there has been interval worsening of the compression fracture of L4. 2. There are posterior protrusions of the superior bodies of L2, L4 and L5 into the spinal canal with central stenosis at these levels as described above. There is posterior protrusion of the superior body of L4 into the spinal canal at L3-L4 with approximately 30-40% central stenosis. The neural foramina appear patent. 3. There is diffuse osteopenia or osteoporosis. 4. There is mild free fluid in the pelvis. Abdomen Ultrasound 03/28/24 12:30 IMPRESSION: 1. 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 2. No ultrasound evidence of focal liver lesion. Abdomen/Pelvis CT 03/30/24 10:14 IMPRESSION: Severe diffuse enteric distention without a focal area of obstruction. Prominence to the portal triads possibly reflective of edema was noted on a recent ultrasound as well. Fleischner guidelines were followed. Chest X-Ray 03/30/24 18:50 IMPRESSION: 1. Cardiomegaly, pulmonary vascular congestion, diffuse increased interstitial opacification possibly mild interstitial edema. 2. Small subpulmonic pleural effusions. KUB X-Ray 03/31/24 11:09 IMPRESSION: Continued bowel distention. Not significantly changed from previous. Differential to include ileus versus obstruction. Chest X-Ray 04/01/24 09:28 IMPRESSION: Bibasilar airspace disease. Low lung volume. Abdomen/Pelvis CT 04/01/24 13:15 IMPRESSION: 1. Extensive bilateral pulmonary emboli with saddle embolus in the right and left main and lower lobe pulmonary artery. 2. Bilateral airspace disease. 3. Small bowel obstruction with transition in the right lower quadrant. 4. Constipation. 5. Multiple compression deformities in thoracic and lumbar spine VTE: positive. Chest CTA 04/01/24 13:15 IMPRESSION: 1. Extensive bilateral pulmonary emboli with saddle embolus in the right and left main and lower lobe pulmonary artery. 2. Bilateral airspace disease. 3. Small bowel obstruction with transition in the right lower quadrant. 4. Constipation. 5. Multiple compression deformities in thoracic and lumbar spine VTE: positive. Venous Duplex 04/01/24 17:01 IMPRESSION: No DVT demonstrated in the right lower extremity. Occlusive thrombus extends from the mid aspect of the left femoral vein to the proximal aspect of the posterior tibial vein, inclusive of the popliteal vein. This critical result was discussed with Dr Rhodes at 5:34 PM on 04/01/2024 and it was ascertained that the content and urgency of the report was understood at the time of direct communication. KUB X-Ray 04/02/24 07:38 IMPRESSION: Nonobstructive bowel pattern. Decreased volume of gas in the colon since prior CAT scan April 01, 2024. Discharge Plan Discharge Anticipated Discharge Date/Time: 04/06/24 14:19 Patient Disposition: Xfer SNF Discharge Diagnosis: Pulmonary embolism Ileus Seizure Compression fracture Referrals: [facility] [Outside] - 1 Week Alfonso Sierra MD [Primary Care Provider] - 1 Week Discharge Medications: New Eliquis 5 mg Tablet 10 mg PO BID Qty: 22 0RF Eliquis 5 mg tablet 5 mg PO BID Qty: 60 0RF Rx Instructions: After finishing the 10mg bid dose polyethylene glycol 3350 17 gram Powder In Packet 17 g PO DAILY PRN (Reason: Constipation) Qty: 30 0RF docusate sodium 100 mg Capsule 100 mg PO DAILY Qty: 90 0RF Continued ursodiol 250 mg Tablet 250 mg PO QID mesalamine [Lialda] 1.2 gram Tablet,Delayed Release (Dr/Ec) 2.4 g PO DAILY multivitamin Tablet 1 tab PO DAILY Discharge Orders: Discharge Order (Routine); Ordered 04/06/24 Ordered By: Jose Thomas Diet: Advance to usual diet Activity on Discharge: As tolerated Stand Alone Forms: Patient Portal Discharge page Print Language: Sami Care Plan Goals: Continue Eliquis 10 mg twice daily for 5 more days then start 5 mg twice daily to finish 6 months Target 1-2 bowel movements daily, take Colace and Miralax To follow with PCP for compression fracture follow up and Ostoporosis treatment Health Concerns: Read below Plan of Treatment: Read below Assessment: Read below
[2024-04-06 14:35] VITALS: BP 108/81; PULSE 84; O2SAT 94
[2024-04-06 16:00] VITALS: BP 116/70; PULSE 98; RESP 20; TEMP 36.2; O2SAT 96
== END 2024-04-06 16:00 | disposition skilled nursing facility (03) | DRG 423 ==
LOC: HO.ED 15:16 → HO.EDOVER 16:58 → HO.IMC 19:54 → HO.ICU 04-01 09:56 → HO.IMC 04-02 10:13
PROVIDERS: Internal Medicine; Internal Medicine Pulmonary Disease; Physician Assistant Medical; Registered Nurse Community Health; Admitting Provider Student in an Organized Health Care Education/Training Program; Emergency Provider Student in an Organized Health Care Education/Training Program; PCP Internal Medicine; Visit Provider Student in an Organized Health Care Education/Training Program
DX: E72.20 Disorder of urea cycle metabolism, unspecified (principal); I26.92 Saddle embolus of pulmonary artery without acute cor pulmonale; J96.01 Acute respiratory failure with hypoxia; I82.412 Acute embolism and thrombosis of left femoral vein; M80.88XA Other osteoporosis with current pathological fracture, vertebra(e), initial encounter for fracture; K56.7 Ileus, unspecified; K83.01 Primary sclerosing cholangitis; R56.9 Unspecified convulsions; I82.442 Acute embolism and thrombosis of left tibial vein; K59.09 Other constipation; T40.605A Adverse effect of unspecified narcotics, initial encounter; K51.90 Ulcerative colitis, unspecified, without complications; K76.9 Liver disease, unspecified; Z20.822 Contact with and (suspected) exposure to COVID-19; Z79.899 Other long term (current) drug therapy
CPT/HCPCS: 0241U; 36415; 36600; 70450; 71045; 71275; 72100; 72125; 72129; 72132; 74018; 74177; 76705; 80048; 80053; 80076; 80202; 80307; 81001; 82140; 82271; 82565; 82803; 82947; 83605; 83690; 83735; 83880; 84100; 84443; 84484; 85025; 85027; 85379; 85610; 85730; 87040; 87077; 87086; 87205; 93005; 93306; 93970; 94660; 94799; 95816; 97162; 97163; 97167; 97530; 99285; C9113; J0131; J0696; J0737; J1644; J1650; J1940; J1953; J1956; J2250; J2270; J2405; J3010; J3370; J3371; J3480; J7120; P9047; Q9967

== ENCOUNTER → 2024-03-28 10:25 | Outpatient (BNV) | payer OTHER, SELFPAY | PROVIDERS: Admitting Provider Student in an Organized Health Care Education/Training Program; Emergency Provider Student in an Organized Health Care Education/Training Program; PCP Internal Medicine; Visit Provider Internal Medicine Cardiovascular Disease | DX: R56.9 Unspecified convulsions (principal) | CPT/HCPCS: 93010 ==

== ENCOUNTER 2024-03-28 15:58 | Outpatient (BNV) | payer OTHER, SELFPAY | END 2024-03-31 07:00 | PROVIDERS: Admitting Provider Student in an Organized Health Care Education/Training Program; Emergency Provider Student in an Organized Health Care Education/Training Program; PCP Internal Medicine; Visit Provider Internal Medicine | DX: I42.2 Other hypertrophic cardiomyopathy (principal); R93.1 Abnormal findings on diagnostic imaging of heart and coronary circulation | CPT/HCPCS: 93306 ==

== ENCOUNTER → 2024-03-28 15:58 | Outpatient (BNV) | payer OTHER, SELFPAY | PROVIDERS: Admitting Provider Student in an Organized Health Care Education/Training Program; Emergency Provider Student in an Organized Health Care Education/Training Program; PCP Internal Medicine; Visit Provider Internal Medicine | DX: I82.409 Acute embolism and thrombosis of unspecified deep veins of unspecified lower extremity (principal); I26.99 Other pulmonary embolism without acute cor pulmonale | CPT/HCPCS: 99222; 99232 ==

== ENCOUNTER → 2024-03-28 15:58 | Outpatient (BNV) | payer OTHER, SELFPAY | PROVIDERS: Admitting Provider Student in an Organized Health Care Education/Training Program; Emergency Provider Student in an Organized Health Care Education/Training Program; PCP Internal Medicine; Visit Provider Surgery | DX: R14.0 Abdominal distension (gaseous) (principal) | CPT/HCPCS: 99222; 99231; 99232; 99499 ==

== ENCOUNTER → 2024-03-28 15:58 | Outpatient (BNV) | payer OTHER, SELFPAY | PROVIDERS: Admitting Provider Student in an Organized Health Care Education/Training Program; Emergency Provider Student in an Organized Health Care Education/Training Program; PCP Internal Medicine; Visit Provider Surgery Vascular Surgery | DX: I26.92 Saddle embolus of pulmonary artery without acute cor pulmonale (principal) | CPT/HCPCS: 99223 ==

== ENCOUNTER → 2024-03-28 15:58 | Outpatient (BNV) | payer OTHER, SELFPAY | PROVIDERS: Admitting Provider Student in an Organized Health Care Education/Training Program; Emergency Provider Student in an Organized Health Care Education/Training Program; PCP Internal Medicine; Visit Provider Psychiatry & Neurology Neurology | DX: R56.9 Unspecified convulsions (principal) | CPT/HCPCS: 99222 ==

== ENCOUNTER → 2024-03-28 15:58 | Outpatient (BNV) | payer OTHER, SELFPAY | PROVIDERS: Admitting Provider Student in an Organized Health Care Education/Training Program; Emergency Provider Student in an Organized Health Care Education/Training Program; PCP Internal Medicine; Visit Provider Student in an Organized Health Care Education/Training Program | DX: I82.409 Acute embolism and thrombosis of unspecified deep veins of unspecified lower extremity (principal); I26.92 Saddle embolus of pulmonary artery without acute cor pulmonale; J96.01 Acute respiratory failure with hypoxia; R14.0 Abdominal distension (gaseous); K56.7 Ileus, unspecified | CPT/HCPCS: 99223; 99232; 99233; 99239; 99499 ==

== ENCOUNTER → 2024-03-28 15:58 | Outpatient (BNV) | payer OTHER, SELFPAY | PROVIDERS: Admitting Provider Student in an Organized Health Care Education/Training Program; Emergency Provider Student in an Organized Health Care Education/Training Program; PCP Internal Medicine; Visit Provider Internal Medicine Pulmonary Disease | DX: I26.99 Other pulmonary embolism without acute cor pulmonale (principal); I82.409 Acute embolism and thrombosis of unspecified deep veins of unspecified lower extremity; J96.01 Acute respiratory failure with hypoxia; T17.900A Unspecified foreign body in respiratory tract, part unspecified causing asphyxiation, initial encounter; R14.0 Abdominal distension (gaseous); K56.7 Ileus, unspecified; K83.01 Primary sclerosing cholangitis; K51.90 Ulcerative colitis, unspecified, without complications; S32.000A Wedge compression fracture of unspecified lumbar vertebra, initial encounter for closed fracture; S22.000A Wedge compression fracture of unspecified thoracic vertebra, initial encounter for closed fracture | CPT/HCPCS: 99232; 99291 ==

== ENCOUNTER 2024-04-28 09:18 | Observation (INO) | payer OTHER, SELFPAY ==
[2024-04-28] VITALS (8 sets, daily range): BP systolic 100–131; BP diastolic 62–90; PULSE 108–122; RESP 17–24; TEMP 36.1–37.2; O2SAT 95–98; BMI 20.7; BMI 21.5
--- NOTE | ~2024-04-28 | XR_ITS ---
EXAMINATION: XR LUMBOSACRAL SPINE CLINICAL INFORMATION: Lumbar pain. COMPARISON: 03/28/2024 CT and radiographs of the lumbar spine. TECHNIQUE: 3 views of the lumbosacral spine. FINDINGS: Postsurgical changes redemonstrated from hernia mesh in the right lower quadrant. Prominent, nonspecific distended air-filled loops of bowel redemonstrated. Evidence of vertebral augmentation in the partially imaged inferior aspect of the T11 vertebral body. Interval increased superior and inferior endplate concavities at the L2 vertebral body. Redemonstration of superior endplate concavity at the L4 vertebral body. Redemonstration of superior and inferior endplate concavities at the L5 vertebral body. Facet arthritis in the lower lumbar spine. XR/XR lumbar spine 2-3V IMPRESSION: 1. Interval increased superior and inferior endplate concavities at the L2 vertebral body. 2. Redemonstration of superior endplate concavity at the L4 vertebral body. Redemonstration of superior and inferior endplate concavities at the L5 vertebral body. 3. Facet arthritis in the lower lumbar spine. This study was presented today 04/28/2024 for interpretation. Stat results provided at this time as requested by referring provider.
--- NOTE | ~2024-04-28 | XR_ITS ---
EXAMINATION: XR THORACOLUMBAR SPINE CLINICAL INFORMATION: Back pain COMPARISON: CT 03/28/2024 TECHNIQUE: AP and lateral radiographs of the thoracic spine FINDINGS: Redemonstration of the T10 and T11 kyphoplasty is which appears similar. There is approximately 30-40% loss of vertebral body height of T8 (and to a lesser extent the T7 vertebral body) which has slightly progressed since the prior study. XR/XR thoracic spine 2V IMPRESSION: Slight progression of the compression deformity of T8 and to a lesser extent T7 since 03/28/2024. This could be better assessed with a thoracic spine CT or MRI.
--- NOTE | ~2024-04-28 | XR_ITS ---
EXAMINATION: XR CHEST CLINICAL INFORMATION: Back pain COMPARISON: 04/01/2024 TECHNIQUE: 2 views of the chest were obtained. FINDINGS: Poor inspiratory effort. There are minor infiltrates at the lung bases which could reflect a pneumonia or be secondary to this point perinephric. Follow-up therefore advised. Upper lungs are clear. Heart size normal with normal caliber pulmonary vessels. Post vertebroplasty changes seen in the mid to lower thoracic spine. XR/XR chest 2V IMPRESSION: Query early bibasilar infiltrates. Recommend short-term follow-up.
--- NOTE | ~2024-04-28 | XR_ITS ---
EXAMINATION: XR SHOULDER, LEFT CLINICAL INFORMATION: Pain. History of fracture. COMPARISON: CT 04/01/2024 TECHNIQUE: Three views of the left shoulder. FINDINGS: Incomplete healing of the scapular body/neck fracture with posterior displacement and callus formation. The glenohumeral and acromioclavicular joints are unremarkable. XR/XR shoulder LT min 2V IMPRESSION: Incomplete healing of the scapular body/neck fracture.
--- NOTE | 2024-04-28 09:52 | PC.NURSE ---
Pt c/o left shoulder and lower back pain since he woke up this morning. Pt states that he was recently at rehab where he had a fx left shoulder but since then the pain has improved until he woke up this morning. Pt states he might have had a seizure . No pmhx of seizures. Pt denies headache, dizziness, numbness and/or tingling in extremities. Recent admission in ICU (see record). Has his GI/liver follow up appointment tomorrow 04/29 but has seen his PCP since his d/c.
--- NOTE | 2024-04-28 09:56 | ED_ITS ---
HPI - General Adult General Chief complaint: Back Pain/Injury Stated complaint: Back & shoulder pain Time Seen by Provider: 04/28/24 09:45 Source: patient Mode of arrival: ambulatory Limitations: no limitations History of Present Illness ED Provider: Dr. Meade HPI narrative: Patient with a complicated medical history including biliary sclerosis, elevated ammonia, seizure disorder and pulmonary emboli who has had a history of scapular fracture, lumbar and thoracic spine compression fracture who presents with increased back and shoulder pain Onset (ago): day(s) Severity: moderate Pain Consistency: constant Related Data Home Medications ?Medication ?Instructions ?Recorded ?Confirmed mesalamine 1.2 gram tablet,delayed 2.4 g PO DAILY 12/09/22 03/28/24 release (Lialda) ursodiol 250 mg tablet 250 mg PO QID 12/09/22 03/28/24 multivitamin 1 tab PO DAILY 03/28/24 03/28/24 Previous Rx's ?Medication ?Instructions ?Recorded apixaban 5 mg tablet (Eliquis) 5 mg PO BID #60 tabs 04/06/24 apixaban 5 mg tablet (Eliquis) 10 mg (2 x 5 mg) PO BID #22 tabs 04/06/24 docusate sodium 100 mg capsule 100 mg PO DAILY #90 caps 04/06/24 polyethylene glycol 3350 17 gram 17 g PO DAILY PRN Constipation #30 04/06/24 oral powder packet ea gabapentin 100 mg capsule 100 mg PO TID #90 caps 04/28/24 oxycodone 10 mg tablet 10 mg PO TID PRN pain #10 tabs 04/28/24 Allergies Allergy/AdvReac Type Severity Reaction Status Date / Time No Known Allergies Allergy Verified 04/28/24 09:29 Review of Systems Review of Systems: Yes all other systems are reviewed and are negative Neurologic: Denies Sensory deficit (Neuro) [facility] Past Medical History Medical History Collapsed vertebra, not elsewhere classified, site unspecified, initial encounter for fracture Lumbar compression fracture Thoracic compression fracture Abdominal distension Bacteremia Ulcerative colitis Primary sclerosing cholangitis Surgical History History of hand surgery H/O right inguinal hernia repair H/O colonoscopy Social History Social History Household Members: Family Household Members Other:: Parents. Housing: House Do you presently have visiting nurse or other home services: No Patient Tobacco Use Status: Never used Tobacco Advance Directives Date on File: 04/07/24 service: No Physical Exam ED Vital Signs: Vital Signs - 24 hr 04/28/24 09:25 04/28/24 11:12 Temperature 97.6 F 98.1 F Pulse Rate 118 H 117 H Respiratory Rate 22 H 17 Blood Pressure 131/90 H 119/82 Pulse Oximetry 97 96 Oxygen Delivery Method Room Air Room Air BMI result Body Mass Index 20.7 Const Other: chronically ill male, small stature atrophieyd legs Orientation/consciousness: oriented to person and patient oriented x3 Limitations: no limitations HENMT Head: Yes normal to inspection Ears: external ears normal General nose exam: Normal external nose present Mouth: Normal oral and palatal mucosa present and oropharynx normal Throat: Yes posterior oropharynx normal Eyes General: appearance normal, both eyes and all related structures Neck Neck: Yes normal visual inspection Chest Chest palpation & inspection: normal inspection of the chest Resp Auscultation: clear to auscultation bilaterally Cardio Jugular venous distension: no JVD Rate: regular rate Rhythm: regular rhythm Heart sounds: S1 normal heart sound present and S2 normal heart sound present GI Inspection: Yes normal to inspection Palpation (GI): Soft to palpation, nontender and No hepatosplenomegaly present Auscultation: normal bowel sounds General: Yes no CVA tenderness Back/Spine/Pelvis Back: no CVA tenderness Skin General skin exam: no rashes or lesions noted Neuro General: oriented to person and patient oriented x3 Cranial nerves: Yes CN's II-XII intact bilaterally Motor exam (neuro): 5/5 motor strength present throughout Sensory Exam: No Sensory deficit (Neuro) Extrem General: Yes normal to inspection Psych Appearance: grossly normal Course Reevaluation(s) Reevaluation #1: Patient with multiple fractures to scapula, lumbar and thoracic spine all continuation of prior fractures, mother concerned that he may have had a seizure last night. Time: 13:43 Medications Administered Discontinued Medications Generic Name Dose Route Start Last Admin Trade Name Freq PRN Reason Stop Dose Admin Gabapentin 100 mg 04/28/24 13:47 04/28/24 13:52 Gabapentin 100 Mg Capsule PO 04/28/24 13:48 100 mg ONCE ONE Administration Oxycodone HCl 10 mg 04/28/24 10:08 04/28/24 10:15 Oxycodone Hcl Immed Release 5 Mg Tablet PO 04/28/24 10:09 10 mg ONCE ONE Administration Medical Decision Making Differential Diagnosis Differential Diagnoses: The differential diagnosis associated with the presentation includes (shoulder fracture, compression fractures of lumbar and thoracic spine, seiure) Admission/Observation Consideration of admission/observation: Escalation of care including admission/observation considered (upon arrival patient considered for admission) Lab Data Labs: Lab Results 04/28/24 Range/Units 13:25 POC Glucose 118 H (60-115) mg/dL Independent Interpretation I performed an independent interpretation of an: Plain X-Ray (chest: no infiltrate, thoracic spine: severe djd Lumbar spine: severe djd) Discharge Plan Discharge Clinical Impression: Thoracic back pain, Compression fracture of thoracic spine, non-traumatic, Compression fx, lumbar spine Patient Disposition: Home, Self-Care Prescriptions: New gabapentin 100 mg capsule 100 mg PO TID Qty: 90 0RF oxycodone 10 mg tablet 10 mg PO TID PRN (Reason: pain) Qty: 10 0RF Rx Instructions: Partial Fill upon patient request. No Action ursodiol 250 mg Tablet 250 mg PO QID mesalamine [Lialda] 1.2 gram Tablet,Delayed Release (Dr/Ec) 2.4 g PO DAILY multivitamin Tablet 1 tab PO DAILY Eliquis 5 mg Tablet 10 mg PO BID Qty: 22 0RF Eliquis 5 mg tablet 5 mg PO BID Qty: 60 0RF Rx Instructions: After finishing the 10mg bid dose polyethylene glycol 3350 17 gram Powder In Packet 17 g PO DAILY PRN (Reason: Constipation) Qty: 30 0RF docusate sodium 100 mg Capsule 100 mg PO DAILY Qty: 90 0RF Referrals: Alfonso Sierra MD [Primary Care Provider] - 3 days Print Language: Thai
[2024-04-28] MEDS: oxyCODONE HCl Immed Release 5 MG TABLET 10 MG PO (10:15)
[2024-04-28 13:29] LABS: Glucose, Whole Blood 118 mg/dL (60-115)
[2024-04-28] MEDS: Gabapentin 100 MG CAPSULE PO (13:52)
[2024-04-28] MEDS: Ondansetron ODT 4 MG TAB.RAPDIS TRANSLINGU (14:23)
--- NOTE | 2024-04-28 14:29 | ECG_ITS ---
Test Reason : TACHYCARDIA Blood Pressure : / mmHG Vent. Rate : 120 BPM Atrial Rate : 120 BPM P-R Int : 144 ms QRS Dur : 080 ms QT Int : 328 ms P-R-T Axes : 057 -02 -23 degrees QTc Int : 463 ms Sinus tachycardia Possible Lateral infarct , age undetermined Abnormal ECG When compared with ECG of 28-MAR-2024 10:25, Borderline criteria for Lateral infarct are now Present T wave inversion now evident in Inferior leads Nonspecific T wave abnormality now evident in Anterolateral leads Referred By: Madhav Meade Electronically Signed By:ALANNA STONE MD
[2024-04-28 14:43] LABS: MANUAL DIFF FLAG NO
[2024-04-28] MEDS: ondansetron HCL 4 MG/2 ML VIAL IVPUSH (14:44)
[2024-04-28 14:45] LABS: Basophils Percent Auto 0.2 % (0-2); Eosinophils Percent Auto 0.3 % (0-4); Hematocrit 42.4 % (42.0-52.0); Hemoglobin 14.8 g/dl (14.0-18.0); Imm Gran Abs Auto 0.04 X10*3/uL (0.00-0.03); Imm Gran Pct Auto 0.3 % (0.0-0.4); Lymphocytes Absolute Auto 0.9 X10*3/uL (1.2-4.9); Lymphocytes Percent Auto 7.1 % (20-40); Mean Corpuscular HGB Conc 34.9 g/dl (31.0-36.0); Mean Corpuscular Hemoglobin 31.7 pg (27.0-33.0); Mean Corpuscular Volume 90.8 fL (80.0-98.0); Monocytes Percent Auto 7.9 % (2-11); Neutrophils Absolute Auto 10.5 x10*3/uL (2.0-8.3); Neutrophils Percent Auto 84.2 % (45-73); Platelet Count 274 X10*3/uL (160-400); Red Blood Count 4.67 X10*6/uL (4.60-5.80); Red Cell Distribution Width 13.4 % (11.0-16.0); White Blood Count 12.5 X10*3/uL (4.8-10.8)
[2024-04-28 14:57] LABS: Anion Gap 12 (12-20); Blood Urea Nitrogen 12 mg/dL (9-16); Calcium 10.6 mg/dL (8.4-10.2); Carbon Dioxide 31 mmol/L (22-29); Chloride 105 mmol/L (96-108); Creatinine Clr Calc Pharmacy 96.4; Estimated Glomerular Filt Rate > 60; Glucose Random 130 mg/dL (60-115); Potassium 4.7 mmol/L (3.3-5.1); Sodium 143 mmol/L (135-145)
[2024-04-28] MEDS: 0.9 % Sodium Chloride 1,000 ML 999 ML IVCONT ×2 (15:08→15:42)
--- NOTE | 2024-04-28 15:12 | MHC.EDTECH ---
this tech took over care @ 1500, checked on pt and asked if they needed anything at this time, pt had no requests
--- NOTE | 2024-04-28 17:38 | P.HPHOSP_ITS ---
History of Present Illness Date of Service: 04/28/24 Chief Complaint: Back Pain 39-year-old male with a PMH significant for?ulcerative colitis, primary sclerosing cholangitis, osteoporosis, and recent kyphoplasty of T10 and T11 vertebral bodies on 02/05/2024 who presents to the ED for evaluation of lower back pain. Patient states he was in his normal state of health last night when he went to bed, when he woke up this morning had significant lower back pain he rates a 9/10 and found he was unable to move or get up. Denies any recent falls or trauma to his back. Recently admitted 03/28 through 04/06/2024 for similar presentation. States he awoke this morning; no seizure or fall but worsening back pain which prompted transportation to ER. In the Emergency workup essentially unremarkable for old fractures however patient was persistently tachycardic despite 1 L of fluid. At this point his pain is poorly control and he will be admitted for volume repletion for his tachycardia and pain management Review of Systems 2 Review of Systems: Denies chest pain Denies shortness of breath Denies nausea vomiting diarrhea Denies fever chills REPLACED BY [facility] Medical History Collapsed vertebra, not elsewhere classified, site unspecified, initial encounter for fracture Lumbar compression fracture Thoracic compression fracture Abdominal distension Bacteremia Ulcerative colitis Primary sclerosing cholangitis Surgical History History of hand surgery H/O right inguinal hernia repair H/O colonoscopy Social History Household Members: Family Household Members Other:: Parents. Housing: House Do you presently have visiting nurse or other home services: No Patient Tobacco Use Status: Never used Tobacco Advance Directives Date on File: 04/07/24 service: No Meds Allergies Allergy/AdvReac Type Severity Reaction Status Date / Time No Known Allergies Allergy Verified 04/28/24 09:29 Active Medications: Current Medications Acetaminophen (Acetaminophen 325 Mg Tablet) 650 mg PO Q6H PRN PRN Reason: Pain, Mild (Pain Scale 1-3), fever or headache Calcium Carbonate (Calcium Carbonate 750 Mg Tab.Chew) 750 mg PO Q4H PRN PRN Reason: Heartburn Hydromorphone HCl (Hydromorphone Hcl 0.5 Mg/0.5 Ml Syringe) 0.5 mg IVPUSH Q4H PRN; Protocol PRN Reason: Pain, Severe (Pain Scale 7-10) Lactated Ringer's (Lr) 1,000 mls @ 125 mls/hr IVCONT .Q8H WAN Magnesium Hydroxide (Milk Of Magnesia 30 Ml Oral.Susp) 30 ml PO DAILY PRN PRN Reason: Constipation Melatonin (Melatonin 3 Mg Tablet) 6 mg PO BEDTIME PRN PRN Reason: Insomnia Ondansetron HCl (Ondansetron Hcl 4 Mg/2 Ml Vial) 4 mg IVPUSH Q8H PRN PRN Reason: Nausea and Vomiting Oxycodone HCl (Oxycodone Hcl Immed Release 5 Mg Tablet) 5 mg PO Q4H PRN PRN Reason: Pain, Moderate(Pain Scale 4-6) Sodium Chloride (0.9 % Sodium Chloride Flush 3 Ml Syringe) 3 ml IVFLUSH QSHIFT [facility] Home Medications ?Medication ?Instructions ?Recorded ?Confirmed ?Last Taken ?Type mesalamine 1.2 gram tablet,delayed 2.4 g PO DAILY 12/09/22 03/28/24 03/28/24 History release (Lialda) ursodiol 250 mg tablet 250 mg PO QID 12/09/22 03/28/24 03/28/24 History multivitamin 1 tab PO DAILY 03/28/24 03/28/24 Unknown History Physical Exam 2 Vital Signs and Narrative: Vital Signs: Last Vital Signs Temp 98.0 F 04/28/24 15:56 Pulse 115 H 04/28/24 15:56 Resp 24 H 04/28/24 15:56 BP 100/74 04/28/24 15:56 Pulse Ox 96 04/28/24 15:56 O2 Del Method Room Air 04/28/24 15:56 BMI result Body Mass Index 20.7 Const: Other: Awake alert uncomfortable appearing on stretcher Resp: Other: Faint crackles bilateral bases Cardio: Other: No S4; positive S1-S2; no S3 murmurs rubs or gallops GI: Other: Soft nontender nondistended normoactive bowel sounds Neuro: Other: Cranial nerves 2-12 grossly intact as tested. Motor appears 5/5 in all extremities sensation intact Extrem: Other: No edema bilaterally Results Labs 04/28/24 14:36 04/28/24 14:36 Labs: Laboratory Results - last 24 hr 04/28/24 04/28/24 13:25 14:36 MCV 90.8 MCH 31.7 MCHC 34.9 RDW 13.4 Plt Count 274 D MPV 10.0 Immature Gran % (Auto) 0.3 Neut % (Auto) 84.2 H Lymph % (Auto) 7.1 L [place] % (Auto) 7.9 Eos % (Auto) 0.3 Baso % (Auto) 0.2 Lymph # (Auto) 0.9 L [place] # (Auto) 1.0 Eos # (Auto) 0.0 Baso # (Auto) 0.0 Abs Immat Gran (auto) 0.04 H Absolute Neuts (auto) 10.5 H Absolute Nucleated RBC 0.000 Nucleated RBC % (auto) 0.0 Anion Gap 12 Estim Creat Clear Calc 96.4 Estimated GFR > 60 POC Glucose 118 H Random Glucose 130 H Calcium 10.6 H D Imaging Radiologist's Impressions: Impressions Chest X-Ray 04/28/24 10:35 IMPRESSION: Query early bibasilar infiltrates. Recommend short-term follow-up. Shoulder X-Ray 04/28/24 10:35 IMPRESSION: Incomplete healing of the scapular body/neck fracture. Thoracic Spine X-Ray 04/28/24 10:35 IMPRESSION: Slight progression of the compression deformity of T8 and to a lesser extent T7 since 03/28/2024. This could be better assessed with a thoracic spine CT or MRI. Lumbar Spine X-Ray 04/28/24 12:23 IMPRESSION: 1. Interval increased superior and inferior endplate concavities at the L2 vertebral body. 2. Redemonstration of superior endplate concavity at the L4 vertebral body. Redemonstration of superior and inferior endplate concavities at the L5 vertebral body. 3. Facet arthritis in the lower lumbar spine. This study was presented today 04/28/2024 for interpretation. Stat results provided at this time as requested by referring provider. Assessment and Plan (1) Compression fx, lumbar spine: Qualifiers: Encounter type: subsequent encounter Lumbar vertebra fracture level: u nspecified lumbar vertebra Fracture healing: with routine healing Qualified Code(s): S32.000D - Wedge compression fracture of unspecified lumbar vertebra, subsequent encounter for fracture with routine healing Status: Acute (2) Compression fracture of thoracic spine, non-traumatic: Qualifiers: Encounter type: subsequent encounter Thoracic vertebra fracture level: T8 Fracture healing: with routine healing Qualified Code(s): M48.54XD - Collapsed vertebra, not elsewhere classified, thoracic region, subsequent encounter for fracture with routine healing Status: Acute (3) Tachycardia: Status: Acute Plan 39 year old male with history of multiple compression fractures to lumbar and thoracic spine presents today with worsening pain despite the absence of trauma. In the emergency room he was found to be persistently tachycardic despite fluid challenge. At this time he will be admitted for control of his pain and volume repletion 1. Multiple compression fractures of thoracic and lumbar spine -admit to general medical floor -pain management with oxycodone and morphine backup 2. Tachycardia -lactated Ringer's at 125 an hour -given physical exam findings/chest x-ray read will give empiric dose of doxycycline and follow clinically 3. History of pulmonary emboli -continue Eliquis Full code Eliquis Patient will require at least 1 midnight going forward acute hospitalization to treat tachycardia with volume repletion and achieve pain management. Quality Stroke Does the patient have a stroke diagnosis?: No VTE Prior VTE?: No VTE Risk Level:: Medical - moderate - high VTE Device Contraindication: Treatment Not Indicated VTE Drug Contraindication: N/A - Med Ordered
[2024-04-28] MEDS: Doxycycline Hyclate 100 MG in 0.9 % Sodium Chloride 250 ML 166.67 MG IV (18:19)
[2024-04-28] MEDS: Lactated Ringers 1,000 ML 125 ML IVCONT (18:20)
--- NOTE | 2024-04-28 20:09 | PHA.MEDREC ---
Pharmacy Consult ? Medication Reconciliation Pharmacy has completed the medication reconciliation. Confirmed meds with patient. Patient stated he was no longer taking Gabapentin 100mg when I called [facility] to confirm some med dosing's and they stated he had picked up his gabapentin 100mg today. I kept it on their med list but unsure when patient took it last. Patient also taking Eliquis 5mg BID. Patient confirmed he took one dose this morning. Patient taking Alendronate 70mg once weekly, patient confirmed he takes on Saturdays and took his last dose Sat 04/24.
[2024-04-28] MEDS: Apixaban 5 MG TABLET PO (22:01)
[2024-04-28] MEDS: HYDROmorphone HCl 0.5 MG/0.5 ML SYRINGE IVPUSH (22:02)
[2024-04-29 04:00] VITALS: BP 117/81; PULSE 103; RESP 18; TEMP 36.7; O2SAT 94
[2024-04-29] MEDS: Doxycycline Hyclate 100 MG in 0.9 % Sodium Chloride 250 ML IV (05:20)
[2024-04-29] MEDS: Lactated Ringers 1,000 ML 125 ML IVCONT (06:13)
[2024-04-29] MEDS: Apixaban 5 MG TABLET PO (07:52)
[2024-04-29] MEDS: Gabapentin 100 MG CAPSULE PO (07:52)
[2024-04-29 08:00] VITALS: BP 112/77; PULSE 100; RESP 14; TEMP 36.8; O2SAT 94
--- NOTE | 2024-04-29 09:30 | MHC.CM.PN ---
[employer] delivered. Patient lives at home w/ mom and step father. Functionally independent. Denies use of DME or services. Had a recent stay @ [place]. PCP Alfonso Sierra MD HCP on file and verified. DP: Home self care. Per will d/c today. Mother at bedside to transport home.
--- NOTE | 2024-04-29 10:59 | MHC.CLN ---
ADDED ENSURE BID PER MD REQUEST VIA CONSULT
[2024-04-29 12:00] VITALS: BP 110/72; PULSE 96; RESP 13; TEMP 36.5; O2SAT 94
--- NOTE | 2024-04-29 12:12 | PM.DS ---
DS: Providers Provider Date of Service: 04/29/24 Date of admission: 04/28/24 17:34 Primary care physician: Alfonso Sierra MD DS: Diagnosis Discharge Diagnosis (1) Compression fx, lumbar spine: Status: Acute (2) Compression fracture of thoracic spine, non-traumatic: Status: Acute (3) Tachycardia: Status: Acute DS: Summary Hospital Course Hospital Course: Admission note HPI 39-year-old male with a PMH significant for?ulcerative colitis, primary sclerosing cholangitis, osteoporosis, and recent kyphoplasty of T10 and T11 vertebral bodies on 02/05/2024 who presents to the ED for evaluation of lower back pain. Patient states he was in his normal state of health last night when he went to bed, when he woke up this morning had significant lower back pain he rates a 9/10 and found he was unable to move or get up. Denies any recent falls or trauma to his back. Recently admitted 03/28 through 04/06/2024 for similar presentation. States he awoke this morning; no seizure or fall but worsening back pain which prompted transportation to ER. In the Emergency workup essentially unremarkable for old fractures however patient was persistently tachycardic despite 1 L of fluid. At this point his pain is poorly control and he will be admitted for volume repletion for his tachycardia and pain management. Hospital course The patient was admitted for pain secondary to Multiple chronic compression fractures of thoracic and lumbar spine as no acute findings on images done for lumbar, thoracic or shoulder XRs. pain was fairly controlled with Oxycodone and he was able to ambulate with staff with no reported pain. A concern raised by his mother about having seizures at home. She denied witnessing any episode. they patient did not have anything to report as well as no seizure incidents happened. Will start Him on Gabapentin after discussing with dr Dial from neurology. He was noted to have Tachycardia and started on antibiotics as CXR was concerning for possible Pneumonia. to be discharged on 5 more days of Doxycycline. Discharge plan Increase physical activity as tolerated Do more stretching exercises Pain medications as needed Start Gabapentin Finish 5 days of Doxycycline for suspecion of pneumonia Follow with PCP as outpatient as scheduled Time Attestation Discharge Coordination Time (in mins): 26 Quality: Safe Use of Opioids Does Pt have an Active Cancer Diagnosis on the Problem List?: No Quality: Stroke Does the patient have a stroke diagnosis?: No Physical Exam Vital Signs: Vital Signs: Last Vital Signs Temp 98.2 F 04/29/24 08:00 Pulse 100 04/29/24 08:00 Resp 14 04/29/24 08:00 BP 112/77 04/29/24 08:00 Pulse Ox 94 04/29/24 08:00 O2 Del Method Room Air 04/29/24 08:00 BMI result Body Mass Index 21.5 Const: Other: Constitutional : Awake, interactive, not in distress Neck : Normal inspection, Supple Cardiovascular : RRR, no JVP, no lower extremity edema Respiratory : good bilateral air entry, no crackles, wheezes or rhonchi Gastrointestinal: soft, lax, Normal bowel sounds, Non tender Skin : Warm, Dry Neurological : Alert & oriented x3, No focal deficit DS: Data Data Completed and Pending Completed studies during hospitalization [Text1]: Procedures Assistance with Respiratory Ventilation, Less than 24 Consecutive Hours, Continuous Positive Airway Pressure (03/28/24) Labs on day of discharge: Laboratory Results - last 24 hr 04/28/24 04/28/24 13:25 14:36 WBC 12.5 H RBC 4.67 Hgb 14.8 Hct 42.4 MCV 90.8 MCH 31.7 MCHC 34.9 RDW 13.4 Plt Count 274 D MPV 10.0 Immature Gran % (Auto) 0.3 Neut % (Auto) 84.2 H Lymph % (Auto) 7.1 L Price % (Auto) 7.9 Eos % (Auto) 0.3 Baso % (Auto) 0.2 Lymph # (Auto) 0.9 L Price # (Auto) 1.0 Eos # (Auto) 0.0 Baso # (Auto) 0.0 Abs Immat Gran (auto) 0.04 H Absolute Neuts (auto) 10.5 H Absolute Nucleated RBC 0.000 Nucleated RBC % (auto) 0.0 Sodium 143 Potassium 4.7 D Chloride 105 Carbon Dioxide 31 H Anion Gap 12 BUN 12 Creatinine 0.81 Estim Creat Clear Calc 96.4 Estimated GFR > 60 POC Glucose 118 H Random Glucose 130 H Calcium 10.6 H D Imaging Chest x-ray: Radiologist's impression: ITS Impressions Chest X-Ray 04/28/24 10:35 IMPRESSION: Query early bibasilar infiltrates. Recommend short-term follow-up. Shoulder X-Ray 04/28/24 10:35 IMPRESSION: Incomplete healing of the scapular body/neck fracture. Thoracic Spine X-Ray 04/28/24 10:35 IMPRESSION: Slight progression of the compression deformity of T8 and to a lesser extent T7 since 03/28/2024. This could be better assessed with a thoracic spine CT or MRI. Lumbar Spine X-Ray 04/28/24 12:23 IMPRESSION: 1. Interval increased superior and inferior endplate concavities at the L2 vertebral body. 2. Redemonstration of superior endplate concavity at the L4 vertebral body. Redemonstration of superior and inferior endplate concavities at the L5 vertebral body. 3. Facet arthritis in the lower lumbar spine. This study was presented today 04/28/2024 for interpretation. Stat results provided at this time as requested by referring provider. Discharge Plan Discharge Anticipated Discharge Date/Time: 04/29/24 12:07 Patient Disposition: Home, Self-Care Discharge Diagnosis: Back pain Referrals: Alfonso Sierra MD [Primary Care Provider] - 3 days Discharge Medications: New doxycycline monohydrate 100 mg capsule 100 mg PO BID Qty: 10 0RF Continued ursodiol 250 mg Tablet 250 mg PO QID mesalamine [Lialda] 1.2 gram Tablet,Delayed Release (Dr/Ec) 2.4 g PO DAILY Eliquis 5 mg tablet 5 mg PO BID Qty: 60 0RF Rx Instructions: After finishing the 10mg bid dose alendronate 70 mg tablet 70 mg PO SA gabapentin 100 mg Capsule 100 mg PO TID Qty: 90 0RF Discharge Orders: Discharge Order (Routine); Ordered 04/29/24 Ordered By: Jose Thomas Diet: Advance to usual diet Activity on Discharge: As tolerated Stand Alone Forms: Patient Portal Discharge page Print Language: [place] Care Plan Goals: Increase physical activity as tolerated Do more stretching exercises Pain medications as needed Start Gabapentin Finish 5 days of Doxycycline for suspecion of pneumonia Follow with PCP as outpatient as scheduled Health Concerns: Read below Plan of Treatment: Read below Assessment: Read below
== END 2024-04-29 12:41 | disposition home or self-care (01) ==
LOC: HO.ED 17:30 → HO.EDOVER 17:40 → HO.S3 19:21
PROVIDERS: Admitting Provider Hospitalist; Emergency Provider Emergency Medicine; PCP Internal Medicine; Visit Provider Student in an Organized Health Care Education/Training Program
DX: M48.56XA Collapsed vertebra, not elsewhere classified, lumbar region, initial encounter for fracture (principal); M48.54XA Collapsed vertebra, not elsewhere classified, thoracic region, initial encounter for fracture; R00.0 Tachycardia, unspecified; R09.02 Hypoxemia; E72.20 Disorder of urea cycle metabolism, unspecified; K51.90 Ulcerative colitis, unspecified, without complications; G40.909 Epilepsy, unspecified, not intractable, without status epilepticus; I26.99 Other pulmonary embolism without acute cor pulmonale
CPT/HCPCS: 36415; 71046; 72070; 72100; 73030; 80048; 82947; 85025; 93005; 96361; 96365; 96366; 96375; 99221; 99285; J1170; J2405; J7120

== ENCOUNTER → 2024-04-28 14:29 | Outpatient (BNV) | payer OTHER, SELFPAY | PROVIDERS: Emergency Provider Emergency Medicine; PCP Internal Medicine; Visit Provider Internal Medicine Cardiovascular Disease | DX: R00.0 Tachycardia, unspecified (principal) | CPT/HCPCS: 93010 ==

== ENCOUNTER → 2024-04-28 17:34 | Outpatient (BNV) | payer OTHER, SELFPAY | PROVIDERS: Admitting Provider Hospitalist; Emergency Provider Emergency Medicine; PCP Internal Medicine; Visit Provider Hospitalist | DX: M48.54XD Collapsed vertebra, not elsewhere classified, thoracic region, subsequent encounter for fracture with routine healing (principal); R00.0 Tachycardia, unspecified | CPT/HCPCS: 99223; 99238 ==

== ENCOUNTER 2024-04-30 11:20 | Outpatient (AMB) | payer OTHER, SELFPAY ==
--- NOTE | 2024-04-30 11:31 | A.OFFVIS_ITS ---
Vital Signs 04/30/24 11:33 Height 5 ft 4 in Weight 120 lb BMI 20.6 BP 107/73 Blood Pressure Location Rt brachial Position Sitting Respiration 14 Pulse 101 H Pulse Source Pulse Oximeter Pulse Oximetry (%) 98 Oxygen Delivery Method Room Air Intake Visit Reasons: FOLLOW UP Allergies No Known Allergies Allergy (Verified 04/30/24 11:34) Medication List - Last Reconciled 04/30/24 by Nita Izaguirre LPN alendronate 70 mg PO SA apixaban (Eliquis) 5 mg PO BID doxycycline monohydrate 100 mg PO BID gabapentin 100 mg PO TID mesalamine (Lialda) 2.4 grams PO DAILY ursodiol 250 mg PO QID HPI HPI FOLLOW UP: Details: 39-year-old male who presents today to the office for a follow up. He continues to have low back pain and had to go to the ER for back pain symptoms. Pain is primarily in the lower back area. He reports pain in his lower back that is secondary to four spine fractures. His arm pain has improved. He saw Dr. Azul multiple times when he was in rehab and had x-ray imaging. He states that Dr. Azul informed him that he does not need surgery. He will see Dr. Tran in endocrinology on 06/08/2024. Was started on Fosamax by his PCP. He is on Eliquis for PE. He has not seen any pulmonologists outpatient. Past procedures 02/05/24: Kyphon Balloon Kyphoplasty with Insertion of HV-R Bone Cement, T10, T11 Vertebral Bodies: >80% relief. [facility] Medical History Collapsed vertebra, not elsewhere classified, site unspecified, initial encounter for fracture Lumbar compression fracture Thoracic compression fracture Abdominal distension Bacteremia Ulcerative colitis Primary sclerosing cholangitis Surgical History History of hand surgery H/O right inguinal hernia repair H/O colonoscopy Social History Household Members: Family Household Members Other:: Parents. Housing: House Do you presently have visiting nurse or other home services: No Patient Tobacco Use Status: Never used Tobacco Advance Directives Date on File: 04/07/24 service: No Review of Systems Const All systems reviewed & are unremarkable except as noted in HPI and below Physical Exam Vital Signs: Last Vital Signs Pulse 101 H 04/30/24 11:33 Resp 14 04/30/24 11:33 BP 107/73 04/30/24 11:33 Pulse Ox 98 04/30/24 11:33 Oxygen Delivery Method Room Air 04/30/24 11:33 BMI result Body Mass Index 20.6 General: Appears afebrile. Alert and oriented. Mood and affect appropriate. Follows and participates in conversation appropriately. Respiratory effort is unlabored. Able to transition from sit to stand unassisted. Ambulates with bilaterally normal heel strike and toe off. Thoracolumbar brace is in place. Results Reviewed Results Reviewed: 03/28/24: CT abdomen pelvis w IV con, CT angio chest PE protocol OSSEOUS STRUCTURES: There is diffuse osteopenia with compression deformities of L5-L4 L3 and status post kyphoplasty of T11 and T10 vertebral bodies. There is compression deformity of T8 and 27. 1. Extensive bilateral pulmonary emboli with saddle embolus in the right and left main and lower lobe pulmonary artery. 2. Bilateral airspace disease. 3. Small bowel obstruction with transition in the right lower quadrant. 4. Constipation. 5. Multiple compression deformities in thoracic and lumbar spine VTE: positive. 04/28/24:? XR LUMBOSACRAL SPINE FINDINGS: Postsurgical changes redemonstrated from hernia mesh in the right lower quadrant. Prominent, nonspecific distended air-filled loops of bowel redemonstrated. Evidence of vertebral augmentation in the partially imaged inferior aspect of the T11 vertebral body. Interval increased superior and inferior endplate concavities at the L2 vertebral body. Redemonstration of superior endplate concavity at the L4 vertebral body. Redemonstration of superior and inferior endplate concavities at the L5 vertebral body. Facet arthritis in the lower lumbar spine. IMPRESSION: 1. Interval increased superior and inferior endplate concavities at the L2 vertebral body. 2. Redemonstration of superior endplate concavity at the L4 vertebral body. Redemonstration of superior and inferior endplate concavities at the L5 vertebral body. 3. Facet arthritis in the lower lumbar spine. 04/28/24: XR THORACOLUMBAR SPINE FINDINGS: Redemonstration of the T10 and T11 kyphoplasty is which appears similar. There is approximately 30-40% loss of vertebral body height of T8 (and to a lesser extent the T7 vertebral body) which has slightly progressed since the prior study. IMPRESSION: Slight progression of the compression deformity of T8 and to a lesser extent T7 since 03/28/2024. This could be better assessed with a thoracic spine CT or MRI. Assessment & Plan Assessment & Plan (1) Osteoporosis: Code(s): M81.0 - Age-related osteoporosis without current pathological fracture Category: Medical Plan He has an appointment with Dr. Tran in June. I had previously done a curbside consult with Dr. Tran over the phone, and he had recommended some initial workup as well as considering a potential referral to the [facility] bone density center to see if he needed any kind of advanced testing for rare bone metabolic disease. Meanwhile, I placed orders for some preliminary osteoporosis bone density related tests. Also, placed a referral to the [facility] and provided the patient with contact information for the same. He will call to schedule an appointment. I will also send a text to Dr. Rhodes in pulmonology, who saw the patient in the ICU to discuss consideration of stopping Eliquis for three days for a potential kyphoplasty procedure. We will also check if we can potentially bridge with Love nox to minimize the risk of PE recurrence. More than 40 minutes were spent in consultation, reviewing documentation and formulation of a plan. Scribed for Dr. Foster by Catrachito Medina, clinical medical transcriptionist, on 04/30/2024. I, Dr. Foster, have personally reviewed and agree with the information entered by the scribe. Orders: Orders Alkaline Phosphatase Bone 04/30/24 M81.0 - Age-related osteoporosis without current pathological fracture Comprehensive Met. Panel 04/30/24 M81.0 - Age-related osteoporosis without current pathological fracture TSH reflex Free T4 04/30/24 M81.0 - Age-related osteoporosis without current pathological fracture Collagen Crosslinks NTX 04/30/24 M81.0 - Age-related osteoporosis without current pathological fracture Calcium, 24 Hr Ur 04/30/24 M81.0 - Age-related osteoporosis without current pathological fracture Calcium 04/30/24 M81.0 - Age-related osteoporosis without current pathological fracture Phosphorus 04/30/24 M81.0 - Age-related osteoporosis without current pathological fracture Parathyroid Hormone Intact 04/30/24 M81.0 - Age-related osteoporosis without current pathological fracture Protein Electrophoresis 24HrUr 04/30/24 M81.0 - Age-related osteoporosis without current pathological fracture Testosterone, Free/Total 04/30/24 M81.0 - Age-related osteoporosis without current pathological fracture Vitamin D 25-OH Total 04/30/24 M81.0 - Age-related osteoporosis without current pathological fracture Collagen Type I C-Telopeptide 04/30/24 M81.0 - Age-related osteoporosis without current pathological fracture Collagen Cross-linked,24U 04/30/24 M81.0 - Age-related osteoporosis without current pathological fracture Albumin Level 04/30/24 M81.0 - Age-related osteoporosis without current pathological fracture Calcium, Ionized 04/30/24 M81.0 - Age-related osteoporosis without current pathological fracture Referrals Endocrinology Referral M81.0 - Age-related osteoporosis without current pathological fracture Coding Level of Care Code Est Pt Level 5 (13993) Diagnoses Osteoporosis M81.0
[2024-04-30 11:33] VITALS: BP 107/73; PULSE 101; RESP 14; O2SAT 98; BMI 20.6
== END 2024-04-30 11:59 | disposition home or self-care (01) ==
PROVIDERS: PCP Internal Medicine; Visit Provider Internal Medicine
DX: M81.0 Age-related osteoporosis without current pathological fracture (principal)
CPT/HCPCS: 99215

== ENCOUNTER 2024-04-30 11:20 | Outpatient (REF) | payer OTHER, SELFPAY ==
[2024-04-30 14:49] LABS: Parathyroid Hormone Intact 26.3 pg/mL (8.7-77.1)
[2024-04-30 15:06] LABS: Alanine Aminotransferase 133 U/L (0-40); Albumin Level 4.1 g/dL (3.5-5.0); Alkaline Phosphatase 231 U/L (39-117); Anion Gap 14 (12-20); Aspartate Amino Transferase 83 U/L (5-37); Bilirubin Total 1.4 mg/dL (0.0-1.0); Blood Urea Nitrogen 13 mg/dL (9-16); Carbon Dioxide 29 mmol/L (22-29); Chloride 103 mmol/L (96-108); Estimated Glomerular Filt Rate > 60; Glucose Random 75 mg/dL (60-115); Phosphorus 3.7 mg/dL (2.7-4.5); Potassium 3.7 mmol/L (3.3-5.1); Sodium 142 mmol/L (135-145); TSH reflex Free T4 0.94 uIU/mL (0.32-4.0); Total Protein 7.5 g/dL (6.5-8.0); Vitamin D 25-OH Total 38.7 ng/mL (>30)
[2024-05-02 13:09] LABS: Calcium, Ionized 5.1 mg/dL (4.7-5.5)
== END 2024-04-30 11:21 | disposition home or self-care (01) ==
LOC: HO.LAB 11:20
PROVIDERS: PCP Internal Medicine; Visit Provider Internal Medicine
DX: M81.0 Age-related osteoporosis without current pathological fracture (principal); M54.50 Low back pain, unspecified
CPT/HCPCS: 36415; 80053; 82306; 82330; 83970; 84100; 84443; 99212

== ENCOUNTER 2024-05-04 08:38 | Outpatient (REF) | payer OTHER, SELFPAY ==
[2024-05-04 09:51] LABS: Albumin Level 4.3 g/dL (3.5-5.0); Calcium 10.3 mg/dL (8.4-10.2)
[2024-05-05 15:29] LABS: Calcium, 24 Hr Urine 200 mg/24 h; Calcium/Creatinine Ratio 192 mg/g creat (30-210)
[2024-05-07 08:44] LABS: Creatinine, 24Hr Urine 1.04 g/24 h (0.50-2.15); PEU24-Albumin Urine 100 %; PEU24-Alpha 1 Globulin 0 %; PEU24-Alpha 2 Globulin 0 %; PEU24-Beta Globulin 0 %; PEU24-Gamma Globulin 0 %; Total Protein 24Hr Urine 135 mg/24 h (<150); Total Protein/Creat Ratio 24h 130 mg/g creat (<100)
[2024-05-07 14:34] LABS: Creatinine 24Hr Urine 1.04
[2024-05-08 08:13] LABS: N-Telopeptide 144 (9-60); NTXCreaRU 206 mg/dL (20-320)
[2024-05-08 20:44] LABS: Alkaline Phosphatase Bone 30.9 mcg/L (7.7-21.3)
[2024-05-08 21:48] LABS: Testosterone, Free 57.3 pg/mL (35.0-155.0); Testosterone, Total 579 ng/dL (250-1100)
[2024-05-09 21:03] LABS: Collagen Type I C-Telopeptide 958 pg/mL (70-780)
[2024-05-12 12:23] LABS: NTX-Creatinine 24Hr Urine 1.04
[2024-05-12 12:24] LABS: NTX Total Volume 675
== END 2024-05-04 08:39 | disposition home or self-care (01) ==
LOC: HO.LAB 08:38
PROVIDERS: PCP Internal Medicine; Visit Provider Internal Medicine
DX: M81.0 Age-related osteoporosis without current pathological fracture (principal)
CPT/HCPCS: 36415; 82040; 82310; 82340; 82523; 82570; 84075; 84156; 84166; 84402; 84403

== ENCOUNTER 2024-05-11 08:44 | Outpatient (REF) | payer OTHER, SELFPAY ==
--- NOTE | ~2024-05-11 | XR_ITS ---
EXAMINATION: XR CHEST CLINICAL INFORMATION: Back pain since December per patient. Back surgery in February per patient. COMPARISON: 04/28/2024. TECHNIQUE: 2 views of the chest were obtained. FINDINGS: There is no gross pneumothorax. Lung volumes are low. Heart size is normal. Redemonstration bibasilar opacities, predominantly left base. Redemonstration of vertebroplasty changes in the [id number] thoracic spine. Small left pleural effusion. Degenerative changes in the thoracic spine. XR/XR chest 2V IMPRESSION: 1. Redemonstration of bibasilar opacities, predominantly left base, with some interval improvement. Small left pleural effusion. 2. Recommend follow-up to resolution.
[2024-05-11 09:16] LABS: Ammonia < 14 umol/L (13-55)
[2024-05-11 10:02] LABS: Alanine Aminotransferase 126 U/L (0-40); Albumin Level 4.3 g/dL (3.5-5.0); Alkaline Phosphatase 366 U/L (39-117); Aspartate Amino Transferase 70 U/L (5-37); Bilirubin Direct 0.4 mg/dL (0.0-0.5); Bilirubin Total 1.1 mg/dL (0.0-1.0); Total Protein 7.7 g/dL (6.5-8.0)
[2024-05-20 18:18] LABS: FIB-ALT 107 U/L (9-46); FIB-Alpha-2-Macroglobulin 171 mg/dL (106-279); FIB-Apolipoprotein A1 110 mg/dL (94-176); FIB-GGT 130 U/L (3-90); FIB-Haptoglobin 136 mg/dL (43-212); Liver Fibrosis Score 0.42; Liver Fibrosis Stage F1-F2; Nec Inflam Act Grade A3; Nec Inflam Act Score 0.64
== END 2024-05-11 08:45 | disposition home or self-care (01) ==
LOC: HO.XRAY 08:44
PROVIDERS: Absent Provider Internal Medicine Gastroenterology; PCP Internal Medicine; Visit Provider Internal Medicine
DX: K83.09 Other cholangitis (principal); M54.9 Dorsalgia, unspecified
CPT/HCPCS: 36415; 71046; 80076; 81596; 82140

== ENCOUNTER 2024-06-08 15:08 | Outpatient (AMB) | payer OTHER, SELFPAY ==
[2024-06-08 15:10] VITALS: BP 92/70; PULSE 85; BMI 21.3
--- NOTE | 2024-06-08 15:10 | A.OFFVIS_ITS ---
Vital Signs 06/08/24 15:10 Height 5 ft 4 in Weight 124 lb 1.924 oz BMI 21.3 BP 92/70 Blood Pressure Location Lt brachial Position Sitting Pulse 85 Pulse Source Pulse Oximeter Intake Visit Reasons: Osteoporosis/CONFIRMED Intake Note: New patient present today for Osteoporosis office visit. Online Banking Specialist Required: No Accompanied by: Step Parent Allergies No Known Allergies Allergy (Verified 06/08/24 15:14) HPI Comments Details: 39 YO M is seen in consultation at the request of PCP for Osteoporosis. First diagnosed in vertebral fx in 12/2023 . Received treatment in the past with 1 dose , in March 2024 Tolerated treatment well without complication. history of pathologic fracture as above or ONJ. Has several servings of dietary calcium per day in the form of cheese, milk . Not Takes Calcium supplement . Not Takess of Vitamin D daily. Denies ever using PPI, + anticoagulant/has PE , antiepileptic /gabapentin but no glucocorticoid medication. Does weight bearing exercise 2 days per week in the form of physical therapy . Fracture history: As above Height loss: No Denies history of Kidney stones: Denies family history of Osteoporosis or hip fracture. UTD on dental cleanings and sees dentist every 6 months. No planned upcoming dental work or extractions. DXA dated : Performed at [facility] showed a T-score of -5.0 in the lumbar spine Labs: No loss of libido [facility] Medical History Collapsed vertebra, not elsewhere classified, site unspecified, initial encounter for fracture Lumbar compression fracture Thoracic compression fracture Abdominal distension Bacteremia Ulcerative colitis Primary sclerosing cholangitis Surgical History History of hand surgery H/O right inguinal hernia repair H/O colonoscopy Social History Household Members: Family Household Members Other:: Parents. Housing: House Do you presently have visiting nurse or other home services: No Patient Tobacco Use Status: Never used Tobacco Advance Directives Date on File: 04/07/24 service: No Physical Exam Vital Signs: Last Vital Signs Pulse 85 06/08/24 15:10 BP 92/70 06/08/24 15:10 BMI result Body Mass Index 21.3 There are no Cushingoid features. Somewhat of a dysmorphic appearance. He appears to be very thin Absence of blue sclera. Presence of kyphosis. Thyroid gland is of nl size and weighs 15 gms. There are no thyroid nodules palpated. Lungs CTA. Heart S1 S2 Reg R/R Abdominal exam benign. Muscle strength 5/5 . Examination of spine reveals absence of tenderness on palpation Assessment & Plan Assessment & Plan (1) Osteoporotic compression fracture of vertebra: Code(s): M80.88XA - Other osteoporosis with current pathological fracture, vertebra(e), initial encounter for fracture Category: Medical Plan: This is a 39-year-old white male with a history of multiple vertebral compression fractures severe osteoporosis with secondary workup essentially negative. He was treated with alendronate for 1 dose this was stopped I suspect this patient may have some sort of genetic abnormality tying together his ulcerative colitis, seizure and very low bone density/fracture. Because the complexity of the case I would ideally like the patient to be seen tertiary care bone center should she [facility] or [facility]. I suggested he increase his calcium intake to total of 1200 mg . I suspect once the above is done, he will need to go on anabolic therapy with either Forteo or Tymlos will defer a 2nd opinion prior to initiating pharmacologic therapy but would like to do this in a timely fashion. If the 2nd opinion is not possible, we will start anabolic therapy prior Orders: Orders Phosphorus Today M80.88XA - Other osteoporosis with current pathological fracture, vertebra(e), initial encounter for fracture Referrals Endocrinology Referral M80.88XA - Other osteoporosis with current pathological fracture, vertebra(e), initial encounter for fracture Coding Level of Care Code New Pt Level 4 (42916) Diagnoses Osteoporotic compression fracture of vertebra M80.88XA
== END 2024-06-08 16:08 | disposition home or self-care (01) ==
PROVIDERS: PCP Internal Medicine; Visit Provider Internal Medicine Endocrinology, Diabetes & Metabolism
DX: M80.88XA Other osteoporosis with current pathological fracture, vertebra(e), initial encounter for fracture (principal)
CPT/HCPCS: 99204

== ENCOUNTER → 2024-06-08 15:08 | Outpatient (BNVA) | payer OTHER, SELFPAY | PROVIDERS: PCP Internal Medicine; Visit Provider Internal Medicine Endocrinology, Diabetes & Metabolism | DX: M80.88XA Other osteoporosis with current pathological fracture, vertebra(e), initial encounter for fracture (principal); X58.XXXA Exposure to other specified factors, initial encounter | CPT/HCPCS: 99202 ==

== ENCOUNTER 2024-06-15 07:31 | Outpatient (REF) | payer OTHER, SELFPAY ==
--- NOTE | ~2024-06-15 | XR_ITS ---
EXAMINATION: XR chest 2V CLINICAL INFORMATION: BACK PAIN COMPARISON: Chest radiograph 03/30/2024, 05/11/2024 TECHNIQUE: 2 views of the chest FINDINGS/ XR/XR chest 2V IMPRESSION: Clear lungs. No pneumothorax. No pleural effusion. Normal cardiomediastinal silhouette. Status post lower thoracic vertebral body kyphoplasty, similar to prior study. Electronically signed by: Pina Allison MD 07/13/2024 06:16 PM EDT
== END 2024-06-15 07:32 | disposition home or self-care (01) ==
LOC: HO.XRAY 07:31
PROVIDERS: PCP Internal Medicine; Visit Provider Internal Medicine
DX: M54.9 Dorsalgia, unspecified (principal)
CPT/HCPCS: 71046

== ENCOUNTER 2024-07-20 07:22 | Outpatient (REF) | payer OTHER, SELFPAY ==
--- NOTE | 2024-07-20 07:25 | EEG_ITS ---
FINDINGS: The waking background activity consists of a 9 hertz posterior alpha frequency intermixed anteriorly with low voltage fast frequencies. 2 or 3 instances of sharp contoured waveform with phase reversal at T5 are seen. Drowsiness is characterized by diffuse theta slowing. During sleep, symmetrical frontal-central sleep spindles develop over both hemispheres. Photic stimulation is without activation. IMPRESSION: This EEG is considered minimally abnormal due to rare left posterior temporal sharp contoured waveform that would suggest the mild focus of cerebral irritability. Clinical correlation is suggested. MD [place] [employer]/[facility] / [phone]
== END 2024-07-20 07:23 | disposition home or self-care (01) ==
LOC: HO.NEURO 07:22
PROVIDERS: PCP Internal Medicine; Visit Provider Internal Medicine
DX: G40.909 Epilepsy, unspecified, not intractable, without status epilepticus (principal)
CPT/HCPCS: 95819

== ENCOUNTER 2024-08-03 11:01 | Emergency (ER) | payer OTHER, SELFPAY ==
--- NOTE | ~2024-08-03 | XR_ITS ---
EXAMINATION: XR LUMBOSACRAL SPINE CLINICAL INFORMATION: Ongoing back pain. COMPARISON: Lumbar spine 04/28/2024 TECHNIQUE: Three views of the lumbosacral spine. FINDINGS: Kyphoplasty changes are seen at T10 and T11. Prior right inguinal hernia surgery. Again noted are superior endplate compression fractures involving L2 and L5, unchanged when compared to prior. No new compression fractures. There is mild disc space narrowing at L3-L4 and L4-L5. There has been no interval change when compared to the prior study. XR/XR lumbar spine 2-3V IMPRESSION: 1. Stable appearance of compression fractures involving L2 and L5. No new compression fractures. 2. Kyphoplasty changes at T10 and T11. Electronically signed by: Madhav Bhat MD 08/03/2024 01:25 PM EDT
[2024-08-03 11:32] VITALS: BP 100/74; PULSE 103; RESP 16; TEMP 36.7; O2SAT 95; BMI 21.3
--- NOTE | 2024-08-03 11:33 | ED_ITS ---
HPI - General Adult General Chief complaint: Back Pain/Injury Stated complaint: Back pain Time Seen by Provider: 08/03/24 13:22 Source: patient Mode of arrival: ambulatory Limitations: no limitations History of Present Illness ED Provider: Marcelo DUMAS HPI narrative: 39-year-old male presents to ED with history of primary sclerosing cholangitis, osteoporosis, DVT, PE, and chronic lumbar spine fractures. Patient states he woke up with low back pain. Patient denies any recent trauma. Patient denies any chest pain or shortness of breath. Patient denies any pleurisy. Patient denies any urinary/bowel incontinence. Patient denies any abdominal pain, dysuria, hematuria, flank pain fever, chills, leg swelling, calf pain, or coughing up blood. Patient denies any lower extremity weakness or pain. Patient denies any history of IV drug use or HIV hepatitis-B/C disease. Patient came to the ED for pain relief Related Data Home Medications ?Medication ?Instructions ?Recorded ?Confirmed mesalamine 1.2 gram tablet,delayed 2.4 g PO DAILY 12/09/22 04/30/24 release (Lialda) ursodiol 250 mg tablet 250 mg PO QID 12/09/22 04/30/24 Previous Rx's ?Medication ?Instructions ?Recorded apixaban 5 mg tablet (Eliquis) 5 mg PO BID #60 tabs 04/06/24 doxycycline monohydrate 100 mg 100 mg PO BID #10 caps 04/29/24 capsule gabapentin 100 mg capsule 100 mg PO TID #90 caps 04/29/24 teriparatide 20 mcg/dose (600 20 mcg (0.08 mL) subcut DAILY #2.4 07/28/24 mcg/2.4 mL) subcutaneous pen mL injector (Forteo) gabapentin 100 mg capsule 100 mg PO TID 15 days #45 caps 08/03/24 tramadol 50 mg tablet 50 mg PO Q8H PRN pain 3 days #9 08/03/24 tabs Allergies Allergy/AdvReac Type Severity Reaction Status Date / Time No Known Allergies Allergy Verified 08/03/24 11:33 Review of Systems 2 Review of Systems: Low back pain Yes all other systems are reviewed and are negative PMFSH Past Medical History Medical History Collapsed vertebra, not elsewhere classified, site unspecified, initial encounter for fracture Lumbar compression fracture Thoracic compression fracture Abdominal distension Bacteremia Ulcerative colitis Primary sclerosing cholangitis Surgical History History of hand surgery H/O right inguinal hernia repair H/O colonoscopy Social History Social History Household Members: Family Household Members Other:: Parents. Housing: House Do you presently have visiting nurse or other home services: No Patient Tobacco Use Status: Never used Tobacco Advance Directives Date on File: 04/07/24 service: No Physical Exam ED Vital Signs: Vital Signs - 24 hr 08/03/24 11:32 08/03/24 14:00 08/03/24 17:01 Temperature 98.1 F 97.6 F 97.6 F Pulse Rate 103 H 94 94 Respiratory Rate 16 18 18 Blood Pressure 100/74 105/86 105/86 Pulse Oximetry 95 95 95 Oxygen Delivery Method Room Air Room Air Room Air BMI result Body Mass Index 21.3 Const General: cooperative, healthy appearing, comfortable, no acute distress, well developed, alert, awake and Physically active Orientation/consciousness: patient oriented x3 HENMT Head: Yes normal to inspection, Yes No palpable skull fracture present, Yes normocephalic and Yes atraumatic Eyes General: appearance normal, both eyes and all related structures Neck Neck: Yes normal visual inspection, Yes full ROM, Yes no lymphadenopathy, Yes no meningeal signs, Yes trachea midline, Yes supple, No anterior neck swelling and No tender Chest Chest palpation & inspection: normal inspection of the chest and normal palpation of entire chest wall Resp Effort & Inspection: normal respiratory effort and able to speak in complete sentences Auscultation: clear to auscultation bilaterally Cardio Jugular venous distension: no JVD Heart sounds: S1 normal heart sound present and S2 normal heart sound present GI Inspection: Yes normal to inspection Palpation (GI): Soft to palpation, not firm, nontender, no guarding and not rigid General: Yes no CVA tenderness Back/Spine/Pelvis Other: Positive straight leg test Back: no CVA tenderness and back tenderness (Mild lumbar spine) Skin General skin exam: no rashes or lesions noted, elasticity normal and turgor normal Neuro General: patient oriented x3, gait normal, tone normal, moves all extremities, Normal light touch and pain sensation, no meningeal signs, no focal motor deficits, CN's II-XI intact bilaterally and normal sensation to monofilament Extrem Other: Bilateral lower extremity negative for swelling, pitting edema, or calf tenderness. General: Yes normal to inspection, Yes full ROM and Yes capillary refill normal Psych Appearance: grossly normal, well kempt and not disheveled Course Course Course Narrative: RME, this is a rapid medical exam performed by Dominguez Villagran please refer to primary provider for complete H&P- 39-year-old male with history of osteoporosis, DVT/PE on Eliquis presents for evaluation of atraumatic back pain since this morning. Plan for labs and high. He does have a history of osteoporosis related fractures. Medications Administered Discontinued Medications Generic Name Dose Route Start Last Admin Trade Name Freq PRN Reason Stop Dose Admin Cyclobenzaprine HCl 10 mg 08/03/24 13:49 08/03/24 14:02 Cyclobenzaprine Hcl 10 Mg Tablet PO 08/03/24 13:50 10 mg ONCE ONE Administration Gabapentin 100 mg 08/03/24 15:26 08/03/24 16:56 Gabapentin 100 Mg Capsule PO 08/03/24 15:27 100 mg ONCE ONE Administration Oxycodone HCl 5 mg 08/03/24 13:49 08/03/24 14:03 Oxycodone Hcl Immed Release 5 Mg Tablet PO 08/03/24 13:50 5 mg ONCE ONE Administration Tramadol HCl 50 mg 08/03/24 15:26 08/03/24 16:55 Tramadol Hcl 50 Mg Tablet PO 08/03/24 15:27 50 mg ONCE ONE Administration Medical Decision Making Medical Decision Making [facility] Narrative: 39-year-old male presents to ED for chronic back pain exacerbation. Patient states no new trauma. Spinal x-ray shows chronic fractures. Labs are normal. Elevated liver enzymes chronic. UA negative for any blood or UTI. Patient's pain relieved with oxycodone, tramadol, gabapentin, and muscle relaxer. Patient is able to ambulate without pain and has normal gait. Patient and mother would like to be discharged. Presently not suspecting PE, cauda equinus syndrome, epidural abscess, kidney stones, pyelonephritis, or UTI. Mother and patient explained worrisome signs and informed to return to the ED immediately. Differential Diagnosis Differential Diagnoses: The differential diagnosis associated with the presentation includes (UTI, spinal fracture, chronic pain) Lab Data MDM Lab Attestation statement: I reviewed the patient's lab results. 08/03/24 11:45 08/03/24 11:45 Labs: Lab Results 08/03/24 08/03/24 Range/Units 11:45 14:51 WBC 9.5 (4.8-10.8) X10*3/uL RBC 4.68 (4.60-5.80) X10*6/uL Hgb 14.6 (14.0-18.0) g/dl Hct 42.4 (42.0-52.0) % MCV 90.6 (80.0-98.0) fL MCH 31.2 (27.0-33.0) pg MCHC 34.4 (31.0-36.0) g/dl RDW 12.7 (11.0-16.0) % Plt Count 247 (160-400) X10*3/uL MPV 10.4 (9.4-12.4) fL Immature Gran % (Auto) 0.3 (0.0-0.4) % Neut % (Auto) 85.3 H (45-73) % Lymph % (Auto) 6.3 L (20-40) % [place] % (Auto) 6.3 (2-11) % Eos % (Auto) 1.4 (0-4) % Baso % (Auto) 0.4 (0-2) % Lymph # (Auto) 0.6 L (1.2-4.9) X10*3/uL [place] # (Auto) 0.6 (0.1-1.2) X10*3/uL Eos # (Auto) 0.1 (0.0-0.4) X10*3/uL Baso # (Auto) 0.0 (0.0-0.2) X10*3/uL Abs Immat Gran (auto) 0.03 (0.00-0.03) X10*3/uL Absolute Neuts (auto) 8.1 (2.0-8.3) x10*3/uL Absolute Nucleated RBC 0.000 (0.0-0.012) X10*3/uL Nucleated RBC % (auto) 0.0 (0.0-0.2) /100WBC PT 12.7 H (10.9-12.4) SEC INR 1.1 (0.9-1.1) Sodium 140 (135-145) mmol/L Potassium 3.7 (3.3-5.1) mmol/L Chloride 106 (96-108) mmol/L Carbon Dioxide 28 (22-29) mmol/L Anion Gap 10 L (12-20) BUN 13 (9-16) mg/dL Creatinine 0.68 (0.5-1.4) mg/dL Estim Creat Clear Calc 118.4 Estimated GFR > 60 Random Glucose 122 H (60-115) mg/dL Calcium 9.8 (8.4-10.2) mg/dL Total Bilirubin 1.1 H (0.0-1.0) mg/dL AST 74 H (5-37) U/L ALT 124 H (0-40) U/L Alkaline Phosphatase 257 H (39-117) U/L Total Protein 7.5 (6.5-8.0) g/dL Albumin 4.2 (3.5-5.0) g/dL Lipase 38 (8-78) U/L Urine Color Dark Yellow Urine Appearance Clear Urine pH 6.0 (5.0-9.0) Ur Specific [place] 1.025 (1.005-1.025) Urine Protein Negative (Neg-Trace) mg/dL Urine Glucose (UA) Negative (Negative) mg/dL Urine Ketones Negative (Negative) mg/dL Urine Blood Negative (Negative) Urine Nitrite Negative (Negative) Ur Leukocyte Esterase Negative (Negative) Independent Interpretation I performed an independent interpretation of an: Plain X-Ray Radiology Impression Discussion of test interpretation with radiology: I have reviewed the radiologist's reading. Independent Historian Clinical information obtained from an independent historian. History obtained from or confirmed by: Parent (mother) and Other (patient) External Record Review External record reviewed: Other (prior visits) Prescription Management I considered prescription management with: Pain Medication Discharge Plan Discharge Clinical Impression: Chronic back pain Patient Disposition: Home, Self-Care Instructions: Chronic Pain (ED), Chronic Back Pain (DC) Additional Instructions: Your lumbar spine x-ray shows chronic fracture. Your labs came back at baseline. Urinalysis negative for blood or signs of infection. Return to the ED immediately for any urinary/bowel incontinence, weakness/numbness/tingling of lower extremities, chest pain, shortness of breath, chest pain on inspiration, fever, chills, hematuria, dysuria,/tingling and genitalia area, coughing up blood, abdominal pain, nausea, vomitting or any other concerning symptoms. Recommend follow-up with primary care provider. XR/XR lumbar spine 2-3V IMPRESSION: 1. Stable appearance of compression fractures involving L2 and L5. No new compression fractures. 2. Kyphoplasty changes at T10 and T11. Electronically signed by: Madhav Bhat MD 08/03/2024 01:25 PM EDT RP Prescriptions: New tramadol 50 mg tablet 50 mg PO Q8H PRN (Reason: pain) 3 Days Qty: 9 0RF gabapentin 100 mg capsule 100 mg PO TID 15 Days Qty: 45 0RF No Action teriparatide [Forteo] 20 mcg/dose (600mcg/2.4mL) pen injector 20 mcg subcut DAILY Qty: 2.4 11RF ursodiol 250 mg Tablet 250 mg PO QID mesalamine [Lialda] 1.2 gram Tablet,Delayed Release (Dr/Ec) 2.4 g PO DAILY Eliquis 5 mg tablet 5 mg PO BID Qty: 60 0RF Rx Instructions: After finishing the 10mg bid dose gabapentin 100 mg Capsule 100 mg PO TID Qty: 90 0RF doxycycline monohydrate 100 mg capsule 100 mg PO BID Qty: 10 0RF Stand Alone Forms: Work/School Release Interventions: ED Discharge Assessment Last Done: 08/03/24 17:01 Discharge Date/Time: 08/03/24 17:02 Print Language: Vietnamese
--- NOTE | 2024-08-03 11:34 | ECG_ITS ---
Test Reason : pain Blood Pressure : / mmHG Vent. Rate : 103 BPM Atrial Rate : 103 BPM P-R Int : 166 ms QRS Dur : 086 ms QT Int : 350 ms P-R-T Axes : 050 -10 000 degrees QTc Int : 458 ms Sinus tachycardia Otherwise normal ECG When compared with ECG of 28-APR-2024 14:36, Nonspecific T wave abnormality no longer evident in Anterolateral leads Referred By: Long Villagran Electronically Signed By:ZACK CURRY
[2024-08-03 11:53] LABS: MANUAL DIFF FLAG NO
[2024-08-03 12:02] LABS: Basophils Percent Auto 0.4 % (0-2); Eosinophils Absolute Auto 0.1 X10*3/uL (0.0-0.4); Eosinophils Percent Auto 1.4 % (0-4); Hematocrit 42.4 % (42.0-52.0); Hemoglobin 14.6 g/dl (14.0-18.0); Imm Gran Abs Auto 0.03 X10*3/uL (0.00-0.03); Imm Gran Pct Auto 0.3 % (0.0-0.4); Lymphocytes Absolute Auto 0.6 X10*3/uL (1.2-4.9); Lymphocytes Percent Auto 6.3 % (20-40); Mean Corpuscular HGB Conc 34.4 g/dl (31.0-36.0); Mean Corpuscular Hemoglobin 31.2 pg (27.0-33.0); Mean Corpuscular Volume 90.6 fL (80.0-98.0); Mean Platelet Volume 10.4 fL (9.4-12.4); Monocytes Absolute Auto 0.6 X10*3/uL (0.1-1.2); Monocytes Percent Auto 6.3 % (2-11); Neutrophils Absolute Auto 8.1 x10*3/uL (2.0-8.3); Neutrophils Percent Auto 85.3 % (45-73); Platelet Count 247 X10*3/uL (160-400); Red Blood Count 4.68 X10*6/uL (4.60-5.80); Red Cell Distribution Width 12.7 % (11.0-16.0); White Blood Count 9.5 X10*3/uL (4.8-10.8)
[2024-08-03 12:04] LABS: INTERNATIONAL NORM RATIO 1.1 (0.9-1.1); Prothrombin Time 12.7 SEC (10.9-12.4)
[2024-08-03 12:08] LABS: Alanine Aminotransferase 124 U/L (0-40); Albumin Level 4.2 g/dL (3.5-5.0); Alkaline Phosphatase 257 U/L (39-117); Anion Gap 10 (12-20); Aspartate Amino Transferase 74 U/L (5-37); Bilirubin Total 1.1 mg/dL (0.0-1.0); Blood Urea Nitrogen 13 mg/dL (9-16); Calcium 9.8 mg/dL (8.4-10.2); Carbon Dioxide 28 mmol/L (22-29); Chloride 106 mmol/L (96-108); Creatinine Clr Calc Pharmacy 118.4; Estimated Glomerular Filt Rate > 60; Glucose Random 122 mg/dL (60-115); Lipase 38 U/L (8-78); Potassium 3.7 mmol/L (3.3-5.1); Sodium 140 mmol/L (135-145); Total Protein 7.5 g/dL (6.5-8.0)
--- NOTE | 2024-08-03 13:46 | PC.NURSE ---
slow but steady on feet to bed from WR. removed appareatus from chest/back. Pt is axox3. states he woke with back pain. no uninary sx. has good bowel/bladder control. pain is not radiating.
[2024-08-03 14:00] VITALS: BP 105/86; PULSE 94; RESP 18; TEMP 36.4; O2SAT 95
[2024-08-03] MEDS: Cyclobenzaprine HCl 10 MG TABLET PO (14:02)
[2024-08-03] MEDS: oxyCODONE HCl Immed Release 5 MG TABLET PO (14:03)
[2024-08-03 15:06] LABS: Appearance Urine Clear; Color Urine Dark Yellow; Glucose Urine UA Negative (Negative); Leukocyte Esterase Urine Negative (Negative); Nitrite Urine Negative (Negative); Specific Gravity - Urine 1.025 (1.005-1.025); Urine Blood Negative (Negative); Urine Ketones Negative (Negative); Urine Protein Negative (Neg-Trace)
[2024-08-03] MEDS: traMADoL HCL 50 MG TABLET PO (16:55)
[2024-08-03] MEDS: Gabapentin 100 MG CAPSULE PO (16:56)
[2024-08-03 17:01] VITALS: BP 105/86; PULSE 94; RESP 18; TEMP 36.4; O2SAT 95
== END 2024-08-03 17:02 | disposition home or self-care (01) ==
PROVIDERS: Physician Assistant; Emergency Provider Emergency Medicine; PCP Internal Medicine
DX: G89.29 Other chronic pain (principal); M54.50 Low back pain, unspecified; Z79.899 Other long term (current) drug therapy
CPT/HCPCS: 36415; 72100; 80053; 81003; 83690; 85025; 85610; 93005; 99283; 99284

== ENCOUNTER 2024-09-06 08:57 | Outpatient (AMB) | payer OTHER, SELFPAY ==
[2024-09-06 09:06] VITALS: BP 120/74; PULSE 72; RESP 14; O2SAT 97; BMI 21.3
--- NOTE | 2024-09-06 09:06 | MHC.OFFVIS ---
Vital Signs 09/06/24 09:06 Height 5 ft 4 in Weight 124 lb BMI 21.3 BP 120/74 Blood Pressure Location Lt brachial Position Sitting Respiration 14 Pulse 72 Pulse Source Pulse Oximeter Pulse Oximetry (%) 97 Oxygen Delivery Method Room Air Intake Visit Reasons: Back Pain Allergies No Known Allergies Allergy (Verified 09/06/24 09:08) Medication List - Last Reconciled 09/06/24 by Nita Izaguirre LPN apixaban (Eliquis) 5 mg PO BID Forteo (teriparatide) 20 mcg (0.08 mL) subcut DAILY NS mesalamine (Lialda) 2.4 grams PO DAILY ursodiol 250 mg PO QID HPI HPI Back Pain: Details: 39-year-old male who presents today to the office for back pain. He reports persistent pain since he had compression fractures of the L2 and L5 vertebral bodies. He continues to have midback pain, which is more bothersome and causes significant discomfort, especially while he is working. He denies significant lower back pain. Past procedures 02/05/24: Kyphon Balloon Kyphoplasty with Insertion of HV-R Bone Cement, T10, T11 Vertebral Bodies: >80% relief. [facility] Medical History Collapsed vertebra, not elsewhere classified, site unspecified, initial encounter for fracture Lumbar compression fracture Thoracic compression fracture Abdominal distension Bacteremia Ulcerative colitis Primary sclerosing cholangitis Surgical History History of hand surgery H/O right inguinal hernia repair H/O colonoscopy Social History Household Members: Family Household Members Other:: Parents. Housing: House Do you presently have visiting nurse or other home services: No Patient Tobacco Use Status: Never used Tobacco Advance Directives Date on File: 04/07/24 service: No Review of Systems Const All systems reviewed & are unremarkable except as noted in HPI and below Physical Exam Vital Signs: Last Vital Signs Pulse 72 09/06/24 09:06 Resp 14 09/06/24 09:06 BP 120/74 09/06/24 09:06 Pulse Ox 97 09/06/24 09:06 Oxygen Delivery Method Room Air 09/06/24 09:06 BMI result Body Mass Index 21.3 General: Appears afebrile. Alert and oriented. Mood and affect appropriate. Follows and participates in conversation appropriately. Respiratory effort is unlabored. Able to transition from sit to stand unassisted. Ambulates with bilaterally normal heel strike and toe off. There is tenderness overlying the L2 over the vertebral body. There is no significant tenderness overlying the L5 vertebral body. Results Reviewed Results Reviewed: 08/03/2024: XR LUMBOSACRAL SPINE FINDINGS: Kyphoplasty changes are seen at T10 and T11. Prior right inguinal hernia surgery. Again noted are superior endplate compression fractures involving L2 and L5, unchanged when compared to prior. No new compression fractures. There is mild disc space narrowing at L3-L4 and L4-L5. There has been no interval change when compared to the prior study. IMPRESSION: 1. Stable appearance of compression fractures involving L2 and L5. No new compression fractures. 2. Kyphoplasty changes at T10 and T11. Assessment & Plan Assessment & Plan (1) Osteoporotic compression fracture of vertebra: Code(s): M80.88XA - Other osteoporosis with current pathological fracture, vertebra(e), initial encounter for fracture Category: Medical Plan Given the tenderness overlying the L2 spinous process, I am concerned that he has a non-healing structure at that level. It has been more than six months now since his initial fracture at that level. I will order a repeat MRI to see if there is any evidence of persistent spinous process/edema within the vertebral body. Once that is confirmed, we will potentially plan for a repeat kyphoplasty at L2 level. He has also established care with Dr. Tran and is currently under anabolic therapy for his osteoporosis. Scribed for Dr. Foster by Catrachito Medina, manager medical writing, on 09/06/2024. I, Dr. Foster, have personally reviewed and agree with the information entered by the scribe. Orders: Orders MR lumbar spine wo con 09/06/24 M80.88XA - Other osteoporosis with current pathological fracture, vertebra(e), initial encounter for fracture Coding Level of Care Code Est Pt Level 3 (75864) Diagnoses Osteoporotic compression fracture of vertebra M80.88XA
== END 2024-09-06 09:41 | disposition home or self-care (01) ==
LOC: HO.PMC 08:57
PROVIDERS: PCP Internal Medicine; Visit Provider Internal Medicine
DX: M80.88XA Other osteoporosis with current pathological fracture, vertebra(e), initial encounter for fracture (principal)
CPT/HCPCS: 99213

== ENCOUNTER → 2024-09-06 08:57 | Outpatient (BNVA) | payer OTHER, SELFPAY | PROVIDERS: PCP Internal Medicine; Visit Provider Internal Medicine | DX: M80.88XA Other osteoporosis with current pathological fracture, vertebra(e), initial encounter for fracture (principal); X58.XXXA Exposure to other specified factors, initial encounter; Y93.9 Activity, unspecified; Y92.9 Unspecified place or not applicable; Y99.9 Unspecified external cause status | CPT/HCPCS: 99212 ==

== ENCOUNTER 2024-10-05 10:28 | Emergency (ER) | payer OTHER, SELFPAY ==
[2024-10-05] VITALS (7 sets, daily range): BP systolic 98–121; BP diastolic 62–84; PULSE 91–115; RESP 15–24; TEMP 36.7–37.6; O2SAT 94–97; BMI 23.2
--- NOTE | ~2024-10-05 | XR_ITS ---
EXAMINATION: XR LUMBOSACRAL SPINE CLINICAL INFORMATION: back pain COMPARISON: X-ray dated August 03, 2024 TECHNIQUE: Three views of the lumbosacral spine. FINDINGS: Burst fractures representing 50% volume loss at L2 and L5. Kyphoplasty/vertebroplasty procedure at T10 and T11. Osteopenia versus osteoporosis. No gross malalignment. Abundant stool in the large intestine. Metallic coils overlapping the right lower pelvis/inguinal region. XR/XR lumbar spine 2-3V IMPRESSION: Subacute to old burst fractures, L2 and L5. Osteopenia versus osteoporosis. Electronically signed by: Claude Casas MD 10/05/2024 02:32 PM [facility]
--- NOTE | ~2024-10-05 | CT_ITS ---
EXAMINATION: CT HEAD WITHOUT CONTRAST CLINICAL INFORMATION: seizure COMPARISON: CT dated March 28, 2024. TECHNIQUE: Contiguous axial imaging was performed from the skull base to vertex without intravenous administration of contrast. This CT examination was performed using dose optimization techniques as appropriate, variously including the following: *Automated exposure control *Adjustment of mA and/or kV according to patient size (this includes techniques or standardized protocols for targeted exams where dose is matched to indication/reason for exam; i.e. extremities or head) *Use of iterative reconstruction technique DLP: 780 mGy-cm FINDINGS: Limited by patient's motion artifact. Bony calvarium is intact. Skull base is intact. No acute intracranial hemorrhage, mass effect, midline shift, hydrocephalus or herniation. Yeager-white matter differentiation is normal. Posterior cranial fossa contents demonstrated no acute intracranial hemorrhage or mass effect. Calcified plaques in the cavernous supracavernous segments both ICAs. Polyploid mucosal thickening in both maxillary sinuses. 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 Probable high riding internal jugular bulbs, bilaterally. Prominent internal auditory canals. CT/CT head/brain wo IV con IMPRESSION: No acute fracture, bony calvarium. No acute intracranial hemorrhage. Stable appearance of the brain. Polypoid pattern paranasal sinus disease. Electronically signed by: Claude Casas MD 10/05/2024 12:44 PM EST
--- NOTE | ~2024-10-05 | CT_ITS ---
EXAMINATION: CT CHEST WITHOUT CONTRAST CLINICAL INFORMATION: Abnormal chest radiograph COMPARISON: CT lumbar spine October 05, 2024, chest radiograph October 05, 2024 TECHNIQUE: Multidetector volumetric CT imaging of the chest was done. Axial MIP volume rendering provided. Sagittal and coronal reformatted images were obtained. This CT examination was performed using dose optimization techniques as appropriate, variously including the following: *Automated exposure control *Adjustment of mA and/or kV according to patient size (this includes techniques or standardized protocols for targeted exams where dose is matched to indication/reason for exam; i.e. extremities or head) *Use of iterative reconstruction technique DLP: 761 mGy-cm FINDINGS: LUNGS: Dependent atelectasis bilaterally. No focal consolidation. No pleural effusion. MEDIASTINUM: The mediastinum is normal. CORONARY ARTERY CALCIFICATION: None visualized on this study. AXILLA: No lymphadenopathy. UPPER ABDOMEN: Partially visualized ascites posterior to the liver OSSEOUS STRUCTURES: Vertebral augmentation cement within the T10 and T11 vertebral bodies. Age indeterminate compression deformities of T7 and T8. CT/CT chest wo IV con IMPRESSION: 1. No acute pulmonary findings. 2. Age indeterminate compression deformities of T7 and T8. 3. Partially visualized ascites posterior to the liver. Fleischner guidelines were followed. Electronically signed by: Jose Alfredo Garcia MD 10/05/2024 08:36 PM [facility]
--- NOTE | ~2024-10-05 | CT_ITS ---
EXAMINATION: CT LUMBAR SPINE WITHOUT CONTRAST CLINICAL INFORMATION: Burst fracture of the lumbar spine. COMPARISON: Lumbar spine radiographs from 11/02/2024. TECHNIQUE: Multidetector helical imaging of the lumbar spine was obtained without intravenous contrast. Multiple axial reformats and coronal/sagittal reconstructions were created the technologist workstation for review. This CT examination was performed using dose optimization techniques as appropriate, variously including the following: *Automated exposure control. *Adjustment of mA and/or kV according to patient size (this includes techniques or standardized protocols for targeted exams where dose is matched to indication/reason for exam; i.e. extremities or head). *Use of iterative reconstruction technique. DLP: 481 mGy-cm FINDINGS: Normal anatomic alignment. No evidence of acute fracture or traumatic subluxation. 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 Chronic compression deformities of the L2, L4, and L5 vertebral bodies with moderate Schmorl's nodes in the superior endplates of each of these levels. There is 60% loss of L2 vertebral body height, 20% loss of L4 superior endplate height, and 60% loss of L5 vertebral body height. Mild chronic retropulsion of the superior-posterior body wall of L2, L4, and L5. The remaining vertebral body heights are maintained. Mild multilevel degenerative disc disease throughout the lumbar spine. No suspicious lytic or sclerotic osseous lesions. No significant abnormalities of the paraspinal musculature. Prominent expansion of the urinary bladder. Otherwise, limited evaluation of the intra-abdominal structures without significant abnormalities. The abdominal aorta is of normal contour and caliber. AXIAL SPINAL LEVELS: L1-L2: Mild diffuse disc bulge with posterior osseous ridging. There is mild bilateral facet joint arthropathy. There is no neural foraminal stenosis. There is no demonstrated spinal canal stenosis. L2-L3: Normal annular contour. There is mild bilateral facet joint arthropathy. There is no neural foraminal stenosis. There is no demonstrated spinal canal stenosis. L3-L4: Moderate diffuse disc bulge with posterior osseous ridging. There is mild to moderate bilateral facet joint arthropathy. There is mild bilateral neural foraminal stenosis. There is no demonstrated spinal canal stenosis. L4-L5: Mild diffuse disc bulge with posterior osseous ridging. There is mild to moderate bilateral facet joint arthropathy. There is mild bilateral neural foraminal stenosis. There is no demonstrated spinal canal stenosis. L5-S1: Shallow diffuse disc bulge. There is mild bilateral facet joint arthropathy. There is mild bilateral neural foraminal stenosis. There is no demonstrated spinal canal stenosis. CT/CT lumbar spine wo IV con IMPRESSION: 1. No evidence of acute fracture or traumatic subluxation of the lumbar spine. 2. Chronic compression deformities of the L2, L4, and L5 vertebral bodies. 3. Otherwise, mild multilevel degenerative spondyloarthropathy of the lumbar spine as described in detail above. Most notably on this limited exam without intrathecal contrast, there appears to be mild neural foraminal stenoses from L3-S1. No demonstrated overt spinal canal stenosis. 4. Prominent expansion of the urinary bladder. Electronically signed by: Will Cabral DO 10/05/2024 06:21 PM [facility]
--- NOTE | ~2024-10-05 | XR_ITS ---
EXAMINATION: XR CHEST CLINICAL INFORMATION: cough COMPARISON: X-ray dated June 15, 2024 TECHNIQUE: 2 views of the chest were obtained. FINDINGS: Prominence of the interstitial lung markings with indistinct margins in the perihilar regions and the lower hemithoraces. No gross pleural effusion. No pneumothorax. Low lung volume. Cardiac mediastinal silhouette appears unchanged. Status post kyphoplasty/vertebroplasty procedure at T10 and T11. XR/XR chest 2V IMPRESSION: Pulmonary edema in the correct clinical settings. Electronically signed by: Claude Casas MD 10/05/2024 02:29 PM [facility]
[2024-10-05 11:09] LABS: Basophils Percent Auto 0.2 % (0-2); Eosinophils Absolute Auto 0.1 X10*3/uL (0.0-0.4); Eosinophils Percent Auto 0.6 % (0-4); Hematocrit 47.3 % (42.0-52.0); Hemoglobin 15.9 g/dl (14.0-18.0); Imm Gran Abs Auto 0.06 X10*3/uL (0.00-0.03); Imm Gran Pct Auto 0.5 % (0.0-0.4); Lymphocytes Absolute Auto 0.5 X10*3/uL (1.2-4.9); Lymphocytes Percent Auto 3.6 % (20-40); MANUAL DIFF FLAG SCAN; Mean Corpuscular HGB Conc 33.6 g/dl (31.0-36.0); Mean Corpuscular Hemoglobin 30.8 pg (27.0-33.0); Mean Corpuscular Volume 91.5 fL (80.0-98.0); Monocytes Absolute Auto 0.6 X10*3/uL (0.1-1.2); Neutrophils Absolute Auto 11.3 x10*3/uL (2.0-8.3); Neutrophils Percent Auto 90.1 % (45-73); Platelet Count 295 X10*3/uL (160-400); Red Blood Count 5.17 X10*6/uL (4.60-5.80); Red Cell Distribution Width 12.8 % (11.0-16.0); SCAN SMEAR FLAG 1; White Blood Count 12.5 X10*3/uL (4.8-10.8)
--- NOTE | 2024-10-05 11:19 | PC.NURSE ---
Seizure precautions/padding in place
[2024-10-05 11:29] LABS: Alanine Aminotransferase 176 U/L (0-40); Albumin Level 4.7 g/dL (3.5-5.0); Alkaline Phosphatase 294 U/L (39-117); Anion Gap 14 (12-20); Aspartate Amino Transferase 108 U/L (5-37); Bilirubin Total 1.5 mg/dL (0.0-1.0); Blood Urea Nitrogen 15 mg/dL (9-16); Calcium 9.9 mg/dL (8.4-10.2); Carbon Dioxide 29 mmol/L (22-29); Chloride 100 mmol/L (96-108); Creatinine Clr Calc Pharmacy 112.9; Estimated Glomerular Filt Rate > 60; Glucose Random 126 mg/dL (60-115); Potassium 4.2 mmol/L (3.3-5.1); Sodium 139 mmol/L (135-145); Total Protein 8.6 g/dL (6.5-8.0)
[2024-10-05 11:32] LABS: SLIDE REVIEW VERIFIED
--- NOTE | 2024-10-05 11:38 | ED.SEIZURE ---
HPI - Seizure General Chief Complaint: Seizure Stated Complaint: Seizure last night? Disoriented Time Seen by Provider: 10/05/24 11:23 Source: patient Mode of arrival: ambulatory History of Present Illness HPI Narrative: This is a 39 years old male who has history of ulcerative colitis, primary sclerosing cholangitis, multiple compressive fracture presented to the emergency department with a possible seizure. The mother states that he woke up this morning with blood in the mouth. He had prior seizure about no medication given the thought was that were not epileptic seizure MD complaint: seizure Onset (ago): unknown Seizure History: Yes (at age 35 year old) Place: Home Possible Precipitating Event: none Associated symptoms: denies other symptoms Treatments prior to arrival: none Related Data Home Medications ?Medication ?Instructions ?Recorded ?Confirmed mesalamine 1.2 gram tablet,delayed 2.4 g PO DAILY 12/09/22 09/06/24 release (Lialda) ursodiol 250 mg tablet 250 mg PO QID 12/09/22 09/06/24 Previous Rx's ?Medication ?Instructions ?Recorded apixaban 5 mg tablet (Eliquis) 5 mg PO BID #60 tabs 04/06/24 Forteo 20 mcg/dose (600 mcg/2.4 20 mcg (0.08 mL) subcut DAILY #2.4 09/21/24 mL) subcutaneous pen injector mL (teriparatide) levetiracetam 1,000 mg tablet 1,000 mg PO BID #60 tabs 10/05/24 (Keppra) Allergies Allergy/AdvReac Type Severity Reaction Status Date / Time No Known Allergies Allergy Verified 10/05/24 10:49 Review of Systems Constitutional: Constitutional: Reports no additional constitutional complaints ENT: Reports system reviewed and no additional complaints, except as documented PMFSH Past Medical History Medical History Compression fx, lumbar spine Compression fracture of thoracic spine, non-traumatic Thoracic back pain Collapsed vertebra, not elsewhere classified, site unspecified, initial encounter for fracture Lumbar compression fracture Thoracic compression fracture Abdominal distension Bacteremia Ulcerative colitis Primary sclerosing cholangitis Surgical History History of hand surgery H/O right inguinal hernia repair H/O colonoscopy Social History Social History Household Members: Family Household Members Other:: Parents. Housing: House Do you presently have visiting nurse or other home services: No Patient Tobacco Use Status: Never used Tobacco Smoked in Last 30 Days: No Use of substances other than those prescribed or required for medical reasons: No Advance Directives: Yes Advance Directives on File: Yes Advance Directives Date on File: 04/07/24 Do you have a plan to hurt others: No Plan service: No Physical Exam Vital Signs: Vital Signs: Last Vital Signs Temp 99.6 F 10/05/24 15:08 Pulse 114 H 10/05/24 15:08 Resp 20 10/05/24 15:08 BP 98/76 10/05/24 15:08 Pulse Ox 97 10/05/24 15:08 O2 Del Method Room Air 10/05/24 15:08 BMI result Body Mass Index 23.2 Const: Orientation/consciousness: patient oriented x3 HEENT: Head: Yes normal to inspection Mouth: other (He has a abrasion at the tip of the tongue) Neck: Neck: Yes normal visual inspection Resp: Effort & Inspection: normal respiratory effort Auscultation: clear to auscultation bilaterally Cardio: Jugular venous distension: no JVD Rate: regular rate Rhythm: regular rhythm GI: Inspection: Yes normal to inspection Palpation (GI): Soft to palpation Skin: General skin exam: no rashes or lesions noted and elasticity normal Neuro: Other: At the baseline now General: patient oriented x3 Medications Administered Discontinued Medications Generic Name Dose Route Start Last Admin Trade Name Freq PRN Reason Stop Dose Admin Apixaban 5 mg 10/05/24 13:07 10/05/24 13:55 Apixaban 5 Mg Tablet PO 10/05/24 13:08 5 mg ONCE ONE Administration Levetiracetam 1,500 mg in 100 mls @ 400 mls/hr 10/05/24 11:45 10/05/24 15:21 Keppra IV 10/05/24 11:59 Infused ONCE ONE Infusion Sodium Chloride 1,000 mls @ 999 mls/hr 10/05/24 13:15 10/05/24 15:21 Ns IVCONT 10/05/24 14:15 Infused .Q1H1M WAN Infusion Medical Decision Making Medical Decision Making MDM Narrative: Patient presented with likely seizure, he is anticoagulated with Eliquis we will get a head CT labs we will reach out to the neurologist. Differential Diagnosis Differential Diagnoses: The differential diagnosis associated with the presentation includes Seizure/pseudo-seizure/hyponatremia/hypomagnesemia Lab Data 10/05/24 11:05 10/05/24 11:05 Labs: Lab Results 10/05/24 Range/Units 11:05 WBC 12.5 H (4.8-10.8) X10*3/uL RBC 5.17 (4.60-5.80) X10*6/uL Hgb 15.9 (14.0-18.0) g/dl Hct 47.3 (42.0-52.0) % MCV 91.5 (80.0-98.0) fL MCH 30.8 (27.0-33.0) pg MCHC 33.6 (31.0-36.0) g/dl RDW 12.8 (11.0-16.0) % Plt Count 295 (160-400) X10*3/uL MPV 10.0 (9.4-12.4) fL Immature Gran % (Auto) 0.5 H (0.0-0.4) % Neut % (Auto) 90.1 H (45-73) % Lymph % (Auto) 3.6 L (20-40) % [place] % (Auto) 5.0 (2-11) % Eos % (Auto) 0.6 (0-4) % Baso % (Auto) 0.2 (0-2) % Lymph # (Auto) 0.5 L (1.2-4.9) X10*3/uL [place] # (Auto) 0.6 (0.1-1.2) X10*3/uL Eos # (Auto) 0.1 (0.0-0.4) X10*3/uL Baso # (Auto) 0.0 (0.0-0.2) X10*3/uL Abs Immat Gran (auto) 0.06 H (0.00-0.03) X10*3/uL Absolute Neuts (auto) 11.3 H (2.0-8.3) x10*3/uL Absolute Nucleated RBC 0.000 (0.0-0.012) X10*3/uL Nucleated RBC % (auto) 0.0 (0.0-0.2) /100WBC Smear Tech's Comments VERIFIED Sodium 139 (135-145) mmol/L Potassium 4.2 (3.3-5.1) mmol/L Chloride 100 (96-108) mmol/L Carbon Dioxide 29 (22-29) mmol/L Anion Gap 14 (12-20) BUN 15 (9-16) mg/dL Creatinine 0.75 (0.5-1.4) mg/dL Estim Creat Clear Calc 112.9 Estimated GFR > 60 Random Glucose 126 H (60-115) mg/dL Calcium 9.9 (8.4-10.2) mg/dL Total Bilirubin 1.5 H (0.0-1.0) mg/dL AST 108 H (5-37) U/L ALT 176 H (0-40) U/L Alkaline Phosphatase 294 H (39-117) U/L Total Protein 8.6 H (6.5-8.0) g/dL Albumin 4.7 (3.5-5.0) g/dL Discharge Plan Discharge Clinical Impression: Seizure Patient Disposition: Home, Self-Care Instructions: New-Onset Seizure in Adults (ED) Additional Instructions: Follow-up with neurologist call and make an appointment, we called a prescription for Keppra for you to the pharmacy [facility] in [place], do not drive do not operate a machine for six-month. Prescriptions: New levetiracetam [Keppra] 1,000 mg tablet 1,000 mg PO BID Qty: 60 0RF No Action teriparatide [Forteo] 20 mcg/dose (600mcg/2.4mL) pen injector 20 mcg subcut DAILY Qty: 2.4 11RF ursodiol 250 mg Tablet 250 mg PO QID mesalamine [Lialda] 1.2 gram Tablet,Delayed Release (Dr/Ec) 2.4 g PO DAILY Eliquis 5 mg tablet 5 mg PO BID Qty: 60 0RF Rx Instructions: After finishing the 10mg bid dose Referrals: Julien Galo MD [Physician] - 3 days Print Language: South Korean
[2024-10-05] MEDS: levETIRAcetam in NaCl (iso-os) 1,500 MG/100 ML PIGGYBACK 400 MG IV (12:18)
[2024-10-05] MEDS: Apixaban 5 MG TABLET PO (13:55)
[2024-10-05] MEDS: 0.9 % Sodium Chloride 1,000 ML 999 ML IVCONT (13:55)
[2024-10-05] MEDS: Amoxicillin 500 MG CAPSULE 1000 MG PO (20:55)
--- OUTSIDE RECORDS SUMMARY | 2024-10-12 12:35 | XMS_ITS | Continuity of Care Document ---
Author Organization [facility] Address [address] [place] [address] Phone [phone] Social History Type Date Description Comments Sex Unknown Medical Devices Description No Information Available Encounters Description No Information Available Assessments Description No Information Available Plan of Treatment No Information Available Functional Status Description No Information Available Mental Status Description No Information Available Referrals Description No Information Available
--- OUTSIDE RECORDS SUMMARY | 2024-10-12 13:01 | XMS_ITS ---
Author Organization Alfonso Sierra MD Address [address] [place] [phone] Care Team Providers Care Banquet Attendant Name Role Phone Alfonso Sierra Primary Care Provider [phone] REASON FOR VISIT refill MEDICATIONS Medication SIG (Take, Route, Frequency, Duration) Notes Start Date End Date Status Eliquis 5 MG 1 tablet Orally Twice a day for 90 days Active Encounters Encounter Location Date Provider Diagnosis Alfonso Sierra MD [address] [place] [phone] 09/14/2024 Alfonso Sierra Acute saddle pulmonary embolism without acute cor pulmonale I26.92 ASSESSMENTS Encounter Date Diagnosis Assessment Notes Treatment Notes Treatment Clinical Notes 09/14/2024 Acute saddle pulmonary embolism without acute cor pulmonale (ICD-10 - I26.92) PLAN OF TREATMENT Medication Medication Name Sig Start Date Stop Date Notes Eliquis 5 MG 1 tablet Orally Twice a day for 90 days Next Appt Details Provider Name:Alfonso martinez, 10/14/2024 11:30:00 AM, [address] [facility], [address] [place] [address], [phone], Provider Name:Alfonso martinez, 03/10/2025 07:45:00 AM, [address] [facility], [address], [place], [phone], Provider Name:Alfonso martinez, 03/17/2025 11:00:00 AM, [address] [place] [address], [address], [place], [phone],
--- OUTSIDE RECORDS SUMMARY | 2024-10-12 13:01 | XMS_ITS ---
Author Organization Alfonso Sierra MD Address [address] [facility] [address] [place] [phone] Care Team Providers Care Packer Name Role Phone Alfonso Sierra Primary Care Provider REASON FOR VISIT ER Encounters Encounter Location Date Provider Diagnosis Alfonso Sierra MD [address] [facility] [address] [place] [phone] 10/07/2024 Alfonso Sierra PLAN OF TREATMENT Next Appt Details Provider Name:Alfonso martinez, 10/14/2024 11:30:00 AM, [address] [place] [address], [address], [phone], Provider Name:Alfonso martinez, 03/10/2025 07:45:00 AM, [address] [place] [address], [address], [phone], Provider Name:Alfonso martinez, 03/17/2025 11:00:00 AM, [address] [place] [address], [address], [phone],
--- OUTSIDE RECORDS SUMMARY | 2024-10-12 13:01 | XMS_ITS ---
Author Organization Alfonso Sierra MD Address [address] [place] [phone] Care Team Providers Care Brand Director Name Role Phone Alfonso Sierra Primary Care Provider REASON FOR VISIT FYI CT chest Encounters Encounter Location Date Provider Diagnosis Alfonso Sierra MD [address] [facility] [address] [place] [phone] 10/11/2024 Alfonso Sierra PLAN OF TREATMENT Next Appt Details Provider Name:Alfonso martinez, 10/14/2024 11:30:00 AM, [address] [place] [address], [address] [place] [address], [phone], Provider Name:Alfonso martinez, 03/10/2025 07:45:00 AM, [address] [place] [address], [address], [phone], Provider Name:Alfonso martinez, 03/17/2025 11:00:00 AM, [address] [place] [address], [address], [phone],
--- OUTSIDE RECORDS SUMMARY | 2024-10-12 13:02 | XMS_ITS | Patient Health Record ---
Author Organization Alfonso Sierra MD Address [address] [place], [place] [id number] Care Team Providers Care [employer] Name Role Phone Rigo Alfonso Primary Care Provider [phone] ALLERGIES No Known Allergies RESULTS Component Value Reference Range Notes Complete Blood Count Auto Di ff Reviewed date:01/11/2024 01:28:45 PM Interpretation: Performing Lab:[facility], [address] [place] [phone] Notes/Report: White Blood Count 7.0 4.8-10.8 X10*3/uL Red Blood Count 4.71 4.60-5.80 X10*6/uL Hemoglobin 14.4 14.0-18.0 g/dl Hematocrit 43.1 42.0-52.0 % Mean Corpuscular Volume 91.5 80.0-98.0 fL Mean Corpuscular Hemoglobin 30.6 27.0-33.0 pg Mean Corpuscular HGB Conc 33.4 31.0-36.0 g/dl Red Cell Distribution Width 12.6 11.0-16.0 % Platelet Count 313 160-400 X10*3/uL Mean Platelet Volume 10.3 9.4-12.4 fL Neutrophils Percent Auto 65.1 45-73 % Imm Gran Pct Auto 0.3 0.0-0.4 % Lymphocytes Percent Auto 19.8 20-40 % Monocytes Percent Auto 9.5 2-11 % Eosinophils Percent Auto 4.6 0-4 % Basophils Percent Auto 0.7 0-2 % NRBC Pct Auto 0.0 0.0-0.2 /100WBC Neutrophils Absolute Auto 4.5 2.0-8.3 x10*3/u L Imm Gran Abs Auto 0.02 0.00-0.03 X10*3/uL Lymphocytes Absolute Auto 1.4 1.2-4.9 X10*3/u L Monocytes Absolute Auto 0.7 0.1-1.2 X10*3/uL Eosinophils Absolute Auto 0.3 0.0-0.4 X10*3/u L Basophils Absolute Auto 0.1 0.0-0.2 X10*3/uL NRBC Abs Auto 0.000 0.0-0.012 X10*3/uL Comprehensive Maxwell. Panel Fa st Reviewed date:01/11/2024 01:28:24 PM Interpretation: Performing Lab:[facility], [address] [place] [phone] Notes/Report: Sodium 139 135-145 mmol/L Potassium 4.1 3.3-5.1 mmol/L Chloride 101 96-108 mmol/L Carbon Dioxide 31 22-29 mmol/L Anion Gap 11 12-20 Blood Urea Nitrogen 13 9-16 mg/dL Creatinine 0.73 0.5-1.4 mg/dL Estimated Glomerular Filt Rate > 60 NOTE: For -Vincentian individuals, multiply the result by 1.210. Chronic Kidney Disease: Estimated GFR < 60 mL/min/1.73m2 Severe Kidney Disease: Estimated GFR < 15 mL/min/1.73m2 Glucose Fasting 83 60-99 mg/dL Calcium 9.4 8.4-10.2 mg/dL Bilirubin Total 0.9 0.0-1.0 mg/dL Aspartate Amino Transferase 66 5-37 U/L Alanine Aminotransferase 99 0-40 U/L Total Protein 7.8 6.5-8.0 g/dL Albumin Level 4.3 3.5-5.0 g/dL Alkaline Phosphatase 572 39-117 U/L MR lumbar spine wo con Reviewed date:01/15/2024 11:36:33 AM Interpretation: Performing Lab: Notes/Report: [address] [address] Magnetic Resonance Report Signed Patient: Javi Smith MR#: [id number] 8 : 1985 Acct:[id number] Age/Sex: 38 / M ADM Date: 01/10/24 Loc: HO.MRI Attending Dr: Vasu LEE Ordering Physician: Vasu Nevarez Date of Service: 01/10/24 Procedure(s): MR lumbar spine wo con Accession Number(s): [id number] cc: Alfonso Sierra MD; Vasu Nevarez EXAMINATION: MR THORACIC SPINE WITHOUT CONTRAST MRI LUMBAR SPINE WITHOUT CONTRAST CLINICAL INFORMATION: Wedge compression fracture. Evaluate nerve root and spinal cord impingement. COMPARISON: CT thoracic spine 12/27/2023. TECHNIQUE: Multiplanar MR imaging of the thoracic spine and lumbar spine was performed without contrast. FINDINGS: Thoracic spine: There is bone marrow edema associated with acute subacute compression fractures of the T11 and T10 vertebral bodies. At T11 there is impaction of the upper endplate resulting in approximately 75% vertebral height loss centrally and slight anterior wedging. There is retropulsion of posterior cortex of the T11 vertebral body causing abutment on the ventral surface of the lower thoracic cord without canal compromise or overt cord compression. T10 there is subtle impaction of the upper endplate resulting in 20% vertebral height loss centrally. No retropulsion of posterior cortex at this level. Vertebral body heights otherwise maintained. Vertebral disc height and signal intensity is preserved at all levels. There is no canal or neuroforaminal compromise. No cord compression or abnormal intramedullary signal changes. Limited visualization of intrathoracic anatomy reveals no abnormal finding. Specifically no paraspinal soft tissue mass or collection. Lumbar spine: There is bone marrow edema associated with an acute to subacute compression fracture of the L4 vertebral body. Specifically there is impaction of the upper endplate resulting in approximately 20% vertebral height loss centrally. There is subtle retropulsion of the upper posterior cortex of the L4 vertebral body. Vertebral heights are otherwise maintained at all levels. Intervertebral disc height and signal intensity is preserved. The tip of the conus medullaris is located at L1-L2. No mass effect on the conus. Visualized distal cord signal intensity is normal. At L3-L4 there is a slightly bulging disc. No canal stenosis. No mass effect on the traversing or foraminal nerve roots. Annular contours are otherwise normal at all levels and there is no canal or neuroforaminal compromise within the lumbar spine. Limited visualization of the retroperitoneal anatomy reveals no abnormal finding. Psoas and paraspinal muscle groups are symmetric. MR/MR lumbar spine wo con IMPRESSION: There is bone marrow edema associated with acute to subacute compression fractures of the T11, T10, and L4 vertebral bodies. There is 75% vertebral height loss centrally at T11 and 20% vertebral height loss centrally at T10 and L4. There is retropulsion of posterior cortex at T11 and L4 however there is no canal or neuroforaminal compromise. No cord compression or abnormal intramedullary signal changes within the lower thoracic cord. Dictated By: Marcial Marin MD Signed By: <Electronically signed by Marcial Marin MD in OV> 01/15/24 1002 DD/ 1120 TD/TT: Preconstruction Manager: MR thoracic spine wo con Reviewed date:01/15/2024 11:37:05 AM Interpretation: Performing Lab: Notes/Report: [address] [address] Magnetic Resonance Report Signed Patient: Javi Smith MR#: [id number] 8 : 1985 Acct:[id number] Age/Sex: 38 / M ADM Date: 01/10/24 Loc: HO.MRI Attending Dr: Vasu LEE Ordering Physician: Vasu Nevarez Date of Service: 01/10/24 Procedure(s): MR thoracic spine wo con Accession Number(s): [id number] cc: Alfonso Sierra MD; Vasu Nevarez EXAMINATION: MR THORACIC SPINE WITHOUT CONTRAST MRI LUMBAR SPINE WITHOUT CONTRAST CLINICAL INFORMATION: Wedge compression fracture. Evaluate nerve root and spinal cord impingement. COMPARISON: CT thoracic spine 12/27/2023. TECHNIQUE: Multiplanar MR imaging of the thoracic spine and lumbar spine was performed without contrast. FINDINGS: Thoracic spine: There is bone marrow edema associated with acute subacute compression fractures of the T11 and T10 vertebral bodies. At T11 there is impaction of the upper endplate resulting in approximately 75% vertebral height loss centrally and slight anterior wedging. There is retropulsion of posterior cortex of the T11 vertebral body causing abutment on the ventral surface of the lower thoracic cord without canal compromise or overt cord compression. T10 there is subtle impaction of the upper endplate resulting in 20% vertebral height loss centrally. No retropulsion of posterior cortex at this level. Vertebral body heights otherwise maintained. Vertebral disc height and signal intensity is preserved at all levels. There is no canal or neuroforaminal compromise. No cord compression or abnormal intramedullary signal changes. Limited visualization of intrathoracic anatomy reveals no abnormal finding. Specifically no paraspinal soft tissue mass or collection. Lumbar spine: There is bone marrow edema associated with an acute to subacute compression fracture of the L4 vertebral body. Specifically there is impaction of the upper endplate resulting in approximately 20% vertebral height loss centrally. There is subtle retropulsion of the upper posterior cortex of the L4 vertebral body. Vertebral heights are otherwise maintained at all levels. Intervertebral disc height and signal intensity is preserved. The tip of the conus medullaris is located at L1-L2. No mass effect on the conus. Visualized distal cord signal intensity is normal. At L3-L4 there is a slightly bulging disc. No canal stenosis. No mass effect on the traversing or foraminal nerve roots. Annular contours are otherwise normal at all levels and there is no canal or neuroforaminal compromise within the lumbar spine. Limited visualization of the retroperitoneal anatomy reveals no abnormal finding. Psoas and paraspinal muscle groups are symmetric. MR/MR thoracic spine wo con IMPRESSION: There is bone marrow edema associated with acute to subacute compression fractures of the T11, T10, and L4 vertebral bodies. There is 75% vertebral height loss centrally at T11 and 20% vertebral height loss centrally at T10 and L4. There is retropulsion of posterior cortex at T11 and L4 however there is no canal or neuroforaminal compromise. No cord compression or abnormal intramedullary signal changes within the lower thoracic cord. Dictated By: Marcial Marin MD Signed By: <Electronically signed by Marcial Marin MD in OV> 01/15/24 1002 DD/ 1035 TD/TT: Preconstruction Manager: XR DEXA axial skeleton Reviewed date:01/15/2024 02:37:38 PM Interpretation: Performing Lab: Notes/Report: [facility]'[address] [place] [address] Mammography Report Signed Patient: Javi Smith MR#: [id number] 8 : 1985 Acct:[id number] Age/Sex: 38 / M ADM Date: 01/14/24 Loc: HO.MAMMO Attending Dr: Boo Foster MD Ordering Physician: Boo Foster MD Results: Date of Service: 01/14/24 Follow Up: Procedure(s): XR DEXA axial skeleton Accession Number(s): [id number] cc: Alfonso Sierra MD; Boo Foster MD EXAMINATION: BONE DENSITOMETRY CLINICAL INDICATION: Collapsed vertebra, not elsewhere classified, site unspecified. COMPARISON: This is the patient's baseline examination. TECHNIQUE: Using a [employer] DXA System (software version: 13.1) manufactured by [employer], dual-energy x-ray absorptiometry was performed of the lumbar spine and left hip. The images are of good technical quality. Based on ISCD (International Society for Clinical Densitometry) standards of reporting, Z-scores instead of T-scores are reported in this male patient younger than age 50. Summary results are attached. FINDINGS: AP SPINE L1-L4: BMD 0.642 g/cm2, T-score -4.8, Z-score -4.2, Z-score below expected range for age. LEFT FEMUR, NECK: BMD 0.924 g/cm2, T-score -1.1, Z-score -0.5, Z-score within expected range for age. LEFT FEMUR, TOTAL: BMD 0.961 g/cm2, T-score -1.0, Z-score -0.4, Z-score within expected range for age. IDENTIFIED RISK FACTORS: Secondary osteoporosis (intestinal or bowel disease, chronic liver disease). HISTORY OF FRACTURE: Spine. MEDICATIONS: None listed. MM/XR DEXA axial skeleton IMPRESSION: 1. DIAGNOSIS: Based on the lowest Z-score value of -4.2 in the lumbar spine, the patient's bone density is below the expected range for age. 2. 10-YEAR FRACTURE RISK PREDICTION, FRAX: Not performed in this patient outside the age range of 50-90 years. 3. Treatment Recommendations: NOF guidelines recommend consideration for treatment in postmenopausal women and men age 50 and older presenting with the following: -A hip or vertebral (clinical or morphometric) fracture. -T-score less than or equal to -2.5 at the femoral neck or spine after appropriate evaluation to exclude secondary causes. -Low bone mass at the hip or spine and a 10-year fracture probability by FRAX of greater than or equal to 3% for hip fracture or greater than or equal to 20% for major osteoporotic fracture based on the [place] adapted WHO algorithm. 4. Other Recommendations: All treatment decisions require clinical judgment and consideration of individual patient factors, including patient preferences, comorbidities, previous drug use, risk factors not captured in the FRAX model (e.g. frailty, falls, vitamin D deficiency, increased bone turnover, interval significant decline in bone density) and possible under or overestimation of fracture risk by FRAX. Additional medical evaluation for secondary cause of low bone mineral density may be appropriate. FUTURE SCAN RECOMMENDATION: People with diagnosed cases of osteoporosis or at high risk for fracture should have regular bone mineral density tests. For patients eligible for Medicare, routine testing is allowed once every 2 years. The testing frequency can be increased to one year for patients who have rapidly progressing disease, those who are receiving or discontinuing medical therapy to restore bone mass, or have additional risk factors. Dictated By: Marco A Mcdonough MD Signed By: <Electronically signed by Marco A Mcdonough MD in OV> 01/15/24 1343 DD/ 1415 TD/TT: Preconstruction Manager: FIDE MRSA Nasal Screen Reviewed date:02/05/2024 04:08:36 PM Interpretation: Performing Lab:[facility], [address] [place] [phone] Notes/Report: MRSA Nasal PCR NEGATIVE Negative SA Nasal PCR NEGATIVE Negative MRSA Interpretation SEE NOTE MRSA target DNA not detected; SA target DNA not detected. A MRSA NEGATIVE, SA NEGATIVE test result does not preclude MRSA or SA nasal colonization. FL guidance in OR Reviewed date:02/17/2024 12:21:29 PM Interpretation: Performing Lab: Notes/Report: [address] [address] Fluoroscopy Report Signed Patient: Javi Smith MR#: [id number] 8 : 1985 Acct:[id number] Age/Sex: 39 / M ADM Date: 02/05/24 Loc: HO.SSS Attending Dr: Boo Foster MD Ordering Physician: Boo Foster MD Date of Service: 02/05/24 Procedure(s): FL guidance in OR Accession Number(s): [id number] cc: Alfonso Sierra MD; Boo Foster MD EXAMINATION: XR FLUOROSCOPY WITH IMAGES CLINICAL INFORMATION: T11 (possible T10 and L4) kyphoplasty. COMPARISON: Portions of the MR spine dated 01/10/2024. TECHNIQUE: Fluoroscopy Supervised By: Dr. Boo Foster. Fluoroscopy Time: 1.0 minutes. Cumulative Dose: 14.2 mGy. DAP: 1.56 Gycm2. Images: 4. FINDINGS: The submitted images show kyphoplasty procedures performed upon 2 lower thoracic spine levels. FL/FL guidance in OR IMPRESSION: Intraoperative fluoroscopic guidance is provided during lower thoracic kyphoplasties. Please see the patient's Operative Report for full procedural details. Dictated By: Javi Orr MD Signed By: <Electronically signed by Javi Orr MD in OV> 02/17/24 1105 DD/ 1640 TD/TT: Preconstruction Manager: BRANDIE Lundberg Reviewed date:03/04/2024 12:27:11 PM Interpretation: Performing Lab:[facility], [address] [place] [phone] Notes/Report: Jonathan Lundberg See Note Specimen held untested for 24 hours; Call to request Chemistry testing. Complete Blood Count Auto Di ff Reviewed date:03/04/2024 12:49:25 PM Interpretation: Performing Lab:[facility], [address] [place] [phone] Notes/Report: White Blood Count 5.0 4.8-10.8 X10*3/uL Red Blood Count 4.58 4.60-5.80 X10*6/uL Hemoglobin 14.3 14.0-18.0 g/dl Hematocrit 42.4 42.0-52.0 % Mean Corpuscular Volume 92.6 80.0-98.0 fL Mean Corpuscular Hemoglobin 31.2 27.0-33.0 pg Mean Corpuscular HGB Conc 33.7 31.0-36.0 g/dl Red Cell Distribution Width 13.2 11.0-16.0 % Platelet Count 235 160-400 X10*3/uL Mean Platelet Volume 10.7 9.4-12.4 fL Neutrophils Percent Auto 53.1 45-73 % Imm Gran Pct Auto 0.2 0.0-0.4 % Lymphocytes Percent Auto 24.1 20-40 % Monocytes Percent Auto 12.4 2-11 % Eosinophils Percent Auto 8.8 0-4 % Basophils Percent Auto 1.4 0-2 % NRBC Pct Auto 0.0 0.0-0.2 /100WBC Neutrophils Absolute Auto 2.6 2.0-8.3 x10*3/u L Imm Gran Abs Auto 0.01 0.00-0.03 X10*3/uL Lymphocytes Absolute Auto 1.2 1.2-4.9 X10*3/u L Monocytes Absolute Auto 0.6 0.1-1.2 X10*3/uL Eosinophils Absolute Auto 0.4 0.0-0.4 X10*3/u L Basophils Absolute Auto 0.1 0.0-0.2 X10*3/uL NRBC Abs Auto 0.000 0.0-0.012 X10*3/uL Comprehensive Maxwell. Panel Fa st Reviewed date:03/04/2024 12:49:42 PM Interpretation: Performing Lab:[facility], [address] [place] [address], [place] [address] Notes/Report: Sodium 138 135-145 mmol/L Potassium 4.0 3.3-5.1 mmol/L Chloride 103 96-108 mmol/L Carbon Dioxide 26 22-29 mmol/L Anion Gap 13 12-20 Blood Urea Nitrogen 15 9-16 mg/dL Creatinine 0.69 0.5-1.4 mg/dL Estimated Glomerular Filt Rate > 60 NOTE: For -Vincentian individuals, multiply the result by 1.210. Chronic Kidney Disease: Estimated GFR < 60 mL/min/1.73m2 Severe Kidney Disease: Estimated GFR < 15 mL/min/1.73m2 Glucose Fasting 84 60-99 mg/dL Calcium 9.6 8.4-10.2 mg/dL Bilirubin Total 1.0 0.0-1.0 mg/dL Aspartate Amino Transferase 90 5-37 U/L Alanine Aminotransferase 125 0-40 U/L Total Protein 7.7 6.5-8.0 g/dL Albumin Level 4.2 3.5-5.0 g/dL Alkaline Phosphatase 351 39-117 U/L Lipid Panel Reviewed date:03/04/2024 12:33:37 PM Interpretation: Performing Lab:[address] [address] Notes/Report: Triglycerides 85 <150 mg/dL Desirable Triglyceride: less than 150 mg/dL Borderline High Triglyceride 150-199 mg/dL High Triglyceride: 200-499 mg/dL Very High Triglyceride: greater than or equal to 5OO mg/dL Cholesterol 130 <200 mg/dL Desirable Cholesterol: less than 200 mg/dL Borderline High Cholesterol: 200-239 mg/dL High Cholesterol: greater than 239 mg/dL LDL Cholesterol Calculated 78 <100 mg/dL Desirable LDL: less than 100 mg/dL Near Optimal/Above Optimal LDL: 110-129 mg/dL Borderline High LDL: 130-159 mg/dL High LDL: 160-189 mg/dL Very High LDL: greater than or equal to 190 mg/dL HDL Cholesterol 35 >40 mg/dL Desirable HDL: greater than 40 mg/dL Note: This HDL assay may give artificially low results in patients with liver disease. UA ClnCatch+Micro w/rflx Cul t Reviewed date:03/04/2024 12:50:46 PM Interpretation: Performing Lab:[address] [address] Notes/Report: Urine, Clean Catch Color Urine Dark Yellow Appearance Urine Clear PH 6.0 5.0-9.0 Glucose Urine UA Negative Negative mg/dL Urine Blood Negative Negative Specific [place] - Urine >= 1.030 1.005-1.025 Urine Protein Negative Neg-Trace mg/dL Urine Ketones Negative Negative mg/dL Nitrite Urine Negative Negative Leukocyte Esterase Urine Negative Negative RBC Urine 0-2 0-2 /HPF WBC Urine 0-5 0-5 /HPF Squamous Epithelial Cell Urine 0-2 0-2 /HPF Bacteria Urine None Seen None Seen Hyaline Casts Urine 0-2 0-2 /LPF Hold Green Gel Reviewed date:03/11/2024 05:09:57 PM Interpretation: Performing Lab:[facility], [address] [place] [phone] Notes/Report: Hold Green Gel See Note Specimen held untested for 24 hours; Call to request Chemistry testing. PSA,Total (Free>4and<10) Reviewed date:03/12/2024 08:18:53 AM Interpretation: Performing Lab:[facility], [address] [place] [phone] Notes/Report: PSA,Total (Free>4and<10) 0.99 0.00-4.00 ng/mL A Free PSA was not performed: The percentage of Free PSA can be used to enhance the differentiation of prostate cancer from benign prostatic disease in subjects whose PSA levels are between 4.0 and 10.0 ng/mL. For subjects whose PSA levels are below 4.0 or above 10.0 ng/mL, the risk of prostate cancer is determined on the basis of the PSA alone. Therefore the % Free PSA is recommended only for those subjects whose PSA levels are between 4.0 and 10.0 ng/mL. PSA methodology: Vega Alinity i Chemiluminescent Microparticle Immunoassay (CMIA) Complete Blood Count Auto Di ff Reviewed date:03/30/2024 12:24:52 PM Interpretation: Performing Lab:[facility], [address] [place] [phone] Notes/Report: White Blood Count 15.1 4.8-10.8 X10*3/uL Red Blood Count 5.33 4.60-5.80 X10*6/uL Hemoglobin 16.5 14.0-18.0 g/dl Hematocrit 51.0 42.0-52.0 % Mean Corpuscular Volume 95.7 80.0-98.0 fL Mean Corpuscular Hemoglobin 31.0 27.0-33.0 pg Mean Corpuscular HGB Conc 32.4 31.0-36.0 g/dl Red Cell Distribution Width 13.1 11.0-16.0 % Platelet Count 278 160-400 X10*3/uL Mean Platelet Volume 10.6 9.4-12.4 fL Neutrophils Percent Auto 79.0 45-73 % Imm Gran Pct Auto 2.4 0.0-0.4 % Lymphocytes Percent Auto 11.2 20-40 % Monocytes Percent Auto 5.4 2-11 % Eosinophils Percent Auto 1.3 0-4 % Basophils Percent Auto 0.7 0-2 % NRBC Pct Auto 1.6 0.0-0.2 /100WBC Neutrophils Absolute Auto 12.0 2.0-8.3 x10*3/u L Imm Gran Abs Auto 0.36 0.00-0.03 X10*3/uL Lymphocytes Absolute Auto 1.7 1.2-4.9 X10*3/u L Monocytes Absolute Auto 0.8 0.1-1.2 X10*3/uL Eosinophils Absolute Auto 0.2 0.0-0.4 X10*3/u L Basophils Absolute Auto 0.1 0.0-0.2 X10*3/uL NRBC Abs Auto 0.240 0.0-0.012 X10*3/uL Pathologist Review - CBC Reviewed date:03/30/2024 12:24:29 PM Interpretation: Performing Lab:[address] [phone] Notes/Report: Pathologist Review - CBC SEE NOTE White blood cells are increased in number and consist mostly of mature granulocytes; rare left-shifted forms with toxic vacuoles are seen. - Alec Bryant M.D. Pathology Prothrombin Time INR Reviewed date:03/29/2024 01:42:16 PM Interpretation: Performing Lab:[facility], [address] [place] [phone] Notes/Report: Prothrombin Time 12.1 11.1-13.3 SEC INTERNATIONAL NORM RATIO 1.0 0.9-1.1 INTERNATIONAL NORMALIZED RATIO (INR) REFERENCE RANGES Reference Range For patients not on anticoagulant therapy: 0.9 - 1.1 INR ranges for oral anticoagulant therapy: For prevention and treatment of venous thrombosis and pulmonary embolism: 2.0 - 3.0 For acute myocardial infarction with aspirin therapy: 2.0 - 3.0 For acute myocardial infarction without aspirin therapy: 3.0 - 4.0 For patients with mechanical prosthetic heart valves: 2.5 - 3.5 Partial Thromboplastin Time Reviewed date:03/29/2024 01:45:49 PM Interpretation: Performing Lab:[facility], [address] [place] [phone] Notes/Report: Partial Thromboplastin Time 34.0 26.0-36.8 SEC For information regarding the monitoring of direct thrombin inhibitors, please refer to Pharmacy. Hold Lt Blue - Possible Coag Reviewed date:03/29/2024 01:32:57 PM Interpretation: Performing Lab:[facility], [address] [place] [phone] Notes/Report: Hold Lt Blue - Possible Coag SEE NOTE Specimen will be held untested for 4 hours. Call Hematology if testing is desired. Comprehensive Met. Panel Reviewed date:03/30/2024 08:40:41 AM Interpretation: Performing Lab:[facility], [address] [place] [phone] Notes/Report: Sodium 146 135-145 mmol/L Potassium 3.3 3.3-5.1 mmol/L Chloride 104 96-108 mmol/L Carbon Dioxide 16 22-29 mmol/L Anion Gap 29 12-20 Blood Urea Nitrogen 16 9-16 mg/dL Creatinine 0.80 0.5-1.4 mg/dL Creatinine Clr Calc Pharmacy 105.8 eGFR (calculated from the MDRD study equation) and eCrCl (calculated from the Cockcroft-Gault equation) are based on different parameters and may not yield comparable results. If eCrCl result is absurd, please check patient's height/weight. Estimated Glomerular Filt Rate > 60 NOTE: For -Vincentian individuals, multiply the result by 1.210. Chronic Kidney Disease: Estimated GFR < 60 mL/min/1.73m2 Severe Kidney Disease: Estimated GFR < 15 mL/min/1.73m2 Glucose Random 117 60-115 mg/dL Calcium 10.6 8.4-10.2 mg/dL Bilirubin Total 1.4 0.0-1.0 mg/dL Aspartate Amino Transferase 179 5-37 U/L Alanine Aminotransferase 228 0-40 U/L Total Protein 9.8 6.5-8.0 g/dL Albumin Level 5.4 3.5-5.0 g/dL Alkaline Phosphatase 630 39-117 U/L Lactic Acid Reviewed date:03/29/2024 01:32:21 PM Interpretation: Performing Lab:[facility], [address] [place] [phone] Notes/Report: Lactic Acid 15.2 0.5-2.0 mmol/L Critical value for test LACTIC: Results called to and read back by: FLEMINK Person calling: GALENSA Date: 03/28/24 Time: 1058 Magnesium Reviewed date:03/29/2024 01:38:27 PM Interpretation: Performing Lab:[facility], [address] [place] [phone] Notes/Report: Magnesium 2.3 1.6-2.6 mg/dL Ammonia Reviewed date:03/29/2024 01:30:42 PM Interpretation: Performing Lab:[facility], [address] [place] [phone] Notes/Report: Ammonia 175 13-55 umol/L Glucose, Whole Blood Reviewed date:03/29/2024 01:32:34 PM Interpretation: Performing Lab:[facility], [address] [place] [phone] Notes/Report: Glucose, Whole Blood 121 60-115 mg/dL METER # : [id number] Drug Screen Urine Reviewed date:03/29/2024 01:30:20 PM Interpretation: Performing Lab:[facility], [address] [place] [phone] Notes/Report: Opiate Screen Urine Not Detected Not Detect Opiate cut-off is 300 ng/mL. Positive results are unconfirmed and should not be used for non-medical purposes. Barbiturates, Urine Not Detected Not Detect Barbiturate cut-off is 200 ng/mL. Positive results are unconfirmed and should not be used for non-medical purposes. Phencyclidine Screen Urine Not Detected Not Detect Phencyclidine cut-off is 25 ng/mL. Positive results are unconfirmed and should not be used for non-medical purposes. Amphetamine Screen Urine Not Detected Not Detect Amphetamine cut-off is 1000 ng/mL. Positive results are unconfirmed and should not be used for non-medical purposes. Benzodiazepines Screen Urine POSITIVE Not Detect Benzodiazepine cut-off is 200 ng/mL. Positive results are unconfirmed and should not be used for non-medical purposes. Cocaine Screen Urine Not Detected Not Detect Cocaine cut-off is 300 ng/mL. Positive results are unconfirmed and should not be used for non-medical purposes. Cannabinoid Screen Urine Not Detected Not Detect Cannabinoid cut-off is 50 ng/mL. Positive results are unconfirmed and should not be used for non-medical purposes. Methadone Screen, Urine Not Detected Not Detect ng/mL Methadone cut-off is 300 ng/mL. Positive results are unconfirmed and should not be used for non-medical purposes. Fentanyl, urine Not Detected Not Detect Fentanyl cut-off is 1 ng/mL. Positive results are unconfirmed and should not be used for non-medical purposes. Oxycodone Screen Urine Not Detected Not Detect ng/mL Oxycodone cut-off is 100 ng/mL. Positive results are unconfirmed and should not be used for non-medical purposes. Buprenorphine Scr Not Detected Not Detect ng/mL Buprenorphine cut-off is 5 ng/mL. Positive results are unconfirmed and should not be used for non-medical purposes. Urine Culture Reviewed date:03/30/2024 12:25:06 PM Interpretation: Performing Lab:[facility], [address] [place] [phone] Notes/Report: Urine Culture No growth. SARS-CoV2/FLU/RSV Reviewed date:03/29/2024 01:30:56 PM Interpretation: Performing Lab:[facility], [address] [place] [phone] Notes/Report: Influenza A PCR NEGATIVE Negative Influenza B PCR NEGATIVE Negative Resp Syncy Virus RNA Qual PCR NEGATIVE Negative SARS COV2 PCR INHOUSE NEGATIVE Negative All test results must be correlated with clinical findings. Negative results do not preclude SARS-CoV2, influenza A virus, influenza B virus and/or RSV infection and should not be used as the sole basis for treatment or other patient management decisions. Negative results must be combined with clinical observations, patient history, and epidemiological information. This test has not been evaluated for monitoring treatment of infection. This test has been authorized by the FDA under an Emergency Use Authorization (EUA) for use by authorized laboratories. Testing performed on the [employer] GeneXpert utilizing real-time RT-PCR. All SARS CoV2 and positive influenza A/B results are reported to [facility]. Blood Culture (First) Reviewed date:03/31/2024 04:43:32 PM Interpretation: Performing Lab:[facility], [address] [place] [phone] Notes/Report: Blood Culture (First) BC Positive/Drawn Results of Blood Culture gram stain sent by a secure message and confirmed by JOE GOLDBERG RN on 03/29/24 at 0801 by SATHYA. Blood Culture (First) 1 set positive/2 s ets drawn Results of Blood Culture gram stain sent by a secure message and confirmed by JOE GOLDBERG RN on 03/29/24 at 0801 by SATHYA. Blood Culture (First) GS - on external report Results of Blood Culture gram stain sent by a secure message and confirmed by JOE GOLDBERG RN on 03/29/24 at 0801 by SATHYA. Blood Culture (First) Gram-positive cocc i in clusters Results of Blood Culture gram stain sent by a secure message and confirmed by JOE GOLDBERG RN on 03/29/24 at 0801 by SATHYA. O:STANEG Coag negative Staphylococcus Blood Culture (First) Unlikely path Results of Blood Culture gram stain sent by a secure message and confirmed by JOE GOLDBERG RN on 03/29/24 at 0801 by SATHYA. Blood Culture (First) Unlikely pathogen; call Micro if further workup indicated. Results of Blood Culture gram stain sent by a secure message and confirmed by JOE GOLDBERG RN on 03/29/24 at 0801 by SATHYA. Blood Culture (Second) Reviewed date:03/31/2024 04:43:32 PM Interpretation: Performing Lab:[facility], [address] [place] [phone] Notes/Report: Blood Culture (Second) Results of Blood Culture gram stain sent by a secure message and confirmed by AMENA/GLENIS on 03/30/24 at 0355 by DOMINIK. Blood Culture (Second) Results of Blood Culture gram stain sent by a secure message and confirmed by AMENA/GLENIS on 03/30/24 at 0355 by DOMINIK. Blood Culture (Second) Results of Blood Culture gram stain sent by a secure message and confirmed by AMENA/GLENIS on 03/30/24 at 0355 by DOMINIK. Blood Culture (Second) Results of Blood Culture gram stain sent by a secure message and confirmed by AMENA/GLENIS on 03/30/24 at 0355 by DOMINIK. Blood Culture (Second) Results of Blood Culture gram stain sent by a secure message and confirmed by AMENA/GLENIS on 03/30/24 at 0355 by DOMINIK. Blood Culture (Second) Results of Blood Culture gram stain sent by a secure message and confirmed by AMENA/GLENIS on 03/30/24 at 0355 by DOMINIK. Blood Culture (Second) Results of Blood Culture gram stain sent by a secure message and confirmed by AMENA/GLENIS on 03/30/24 at 0355 by DOMINIK. Blood Culture (Second) Results of Blood Culture gram stain sent by a secure message and confirmed by AMENA/GLENIS on 03/30/24 at 0355 by DOMINIK. Blood Culture (Second) Results of Blood Culture gram stain sent by a secure message and confirmed by AMENA/GLENIS on 03/30/24 at 0355 by DOMINIK. Blood Culture (Second) BC Positive/Drawn Results of Blood Culture gram stain sent by a secure message and confirmed by AMENA/GLENIS on 03/30/24 at 0355 by DOMINIK. Blood Culture (Second) 1 set positive/2 sets drawn Results of Blood Culture gram stain sent by a secure message and confirmed by AMENA/GLENIS on 03/30/24 at 0355 by DOMINIK. Blood Culture (Second) GS - on external report Results of Blood Culture gram stain sent by a secure message and confirmed by AMENA/GLENIS on 03/30/24 at 0355 by DOMINIK. Blood Culture (Second) Gram-positive teresa ci in chains Results of Blood Culture gram stain sent by a secure message and confirmed by AMENA/GLENIS on 03/30/24 at 0355 by DOMINIK. Blood Culture (Second) Review Comment Results of Blood Culture gram stain sent by a secure message and confirmed by BETTIE on 03/30/24 at 0355 by DOMINIK. Blood Culture (Second) Gram stain review ed by a Deck Mate Results of Blood Culture gram stain sent by a secure message and confirmed by AMENA/GLENIS on 03/30/24 at 0355 by DOMINIK. O:STRVID Streptococcus viridans group Blood Culture (Second) Unlikely path Results of Blood Culture gram stain sent by a secure message and confirmed by AMENA/GLENIS on 03/30/24 at 0355 by DOMINIK. Blood Culture (Second) Unlikely pathogen ; call Micro if further workup indicated. Results of Blood Culture gram stain sent by a secure message and confirmed by AMENA/GLENIS on 03/30/24 at 0355 by DOMINIK. Lactic Acid-LAB USE ONLY Reviewed date:03/29/2024 01:31:10 PM Interpretation: Performing Lab:[facility], [address] [place] [phone] Notes/Report: Lactic Acid-LAB USE ONLY 1.1 0.5-2.0 mmol/L UA ClnCatch+Micro w/rflx Cul t Reviewed date:03/30/2024 12:44:37 PM Interpretation: Performing Lab:[facility], [address] [place] [phone] Notes/Report: [id number] Urine, Catheterized Color Urine Dark Yellow Appearance Urine Clear PH 6.0 5.0-9.0 Glucose Urine UA Negative Negative mg/dL Urine Blood Negative Negative Specific [place] - Urine >= 1.030 1.005-1.025 Urine Protein 30 (1+) Neg-Trace mg/dL Urine Ketones Negative Negative mg/dL Nitrite Urine Negative Negative Leukocyte Esterase Urine Negative Negative RBC Urine 0-2 0-2 /HPF WBC Urine 6-10 0-5 /HPF Squamous Epithelial Cell Urine 0-2 0-2 /HPF Bacteria Urine None Seen None Seen Hyaline Casts Urine 3-5 0-2 /LPF Venous Blood Gases - POC Reviewed date:03/29/2024 01:29:51 PM Interpretation: Performing Lab:[facility], [address] [place] [phone] Notes/Report: VBG pH 6.96 7.32-7.43 METER #: [id number] additional_comment: nabil robbins flemink VBG pCO2 64 METER #: [id number] additional_comment: nabil robbins flemink VBG pO2 60 METER #: [id number] additional_comment: nabil robbins flemink VBG Base Excess -18.2 METER #: [id number] additional_comment: nabil robbins flemink VBG HCO3 14 22-26 mmol/L METER #: [id number] additional_comment: nabil robbins flemink VBG O2 % Saturation 72.0 METER #: [id number] additional_comment: nabil robbins flemink Hold Green Gel Reviewed date:03/29/2024 01:32:47 PM Interpretation: Performing Lab:[facility], [address] [place] [phone] Notes/Report: Hold Green Gel See Note Specimen held untested for 24 hours; Call to request Chemistry testing. CT thoracic spine w con Reviewed date:03/29/2024 01:35:31 PM Interpretation: Performing Lab: Notes/Report: [address] [address] [address] Scan Report Signed Patient: Javi Smith MR#: [id number] 8 : 1985 Acct:[id number] Age/Sex: 39 / M ADM Date: 03/28/24 Loc: HO.ED Attending Dr: Ordering Physician: Nita Garza Date of Service: 03/28/24 Procedure(s): CT thoracic spine w IV con Accession Number(s): [id number] cc: Alfonso Sierra MD; Nita Garza EXAMINATION: CT THORACIC SPINE WITH CONTRAST CT LUMBAR SPINE WITH CONTRAST CLINICAL INFORMATION: Recent surgery, altered mental status. COMPARISON: Plain films of the lumbar spine earlier. MRI scan of the lumbar and thoracic spines 01/10/2024. CT scan of the thoracic spine [facility] 12/27/2023. 03/28/2024 TECHNIQUE: Thoracic spine, which was demonstrated on prior imaging. Overall, bone mineralization is markedly decreased, consistent with osteopenia/osteoporosis. Postcontrast axial CT scans of the thoracic and lumbar spine were obtained following the intravenous administration of 85 mL of Omnipaque 350. Coronal and sagittal reformatted images were generated at the technologist workstation. This CT examination was performed using dose optimization techniques as appropriate, variously including the following: *Automated exposure control *Adjustment of mA and/or kV according to patient size (this includes techniques or standardized protocols for targeted exams where dose is matched to indication/reason for exam; i.e. extremities or head) *Use of iterative reconstruction technique DLP: 1511 mGy-cm. FINDINGS: CT THORACIC SPINE: VERTEBRAL BODIES AND PARASPINAL STRUCTURES: There is hyperkyphosis in the lower thoracic spine at the level of T10-T11, demonstrated on prior imaging. There are now sequelae of kyphoplasties in the bodies of T10 and T11, demonstrated on the concurrent plain films of the lumbar spine. There is loss of vertebral body height of T7 and T8 on the current study, not demonstrated on the prior MRI scan. There is invagination of disc into the superior endplates at multiple levels in the upper thoracic spine. Bone mineralization is diffusely decreased consistent with osteopenia or osteoporosis. There is good parenchymal enhancement of the bilateral kidneys. There is bibasilar atelectasis, more extensive posteriorly on the left. SPINAL LEVELS: C7-T1 through T5-T6: Posterior vertebral body and disc contours are normal in is no central stenosis or cord compression. The neural foramina appear patent. T6-T7: There is slight posterior protrusion of the superior body of T7 into the spinal canal, but there is no central stenosis and the neural foramina are patent bilaterally. T7-T8: There is posterior protrusion of the superior body of T8 into the spinal canal without significant stenosis. The neural foramina are patent bilaterally. T10-T11: As described above there are kyphoplasties at these levels. There is posterior protrusion of the superior body of T11 into the spinal canal with approximately 20% central stenosis. The neural foramina appear patent. CT LUMBAR SPINE: FINDINGS: VERTEBRAL BODIES AND PARASPINAL STRUCTURES: There is overall anatomic alignment of the vertebral bodies. There are compression fractures of the bodies of L2, L4 and L5. There has been interval worsening of the compression fracture of the superior body of L4, with invagination of disc into the superior endplate. There are superior compression fractures of the bodies of L2 and L5 which are new compared to the prior MRI scan. Intervertebral disc heights are maintained. Bone mineralization is diffusely decreased consistent with osteopenia or osteoporosis. There is a 1.3 cm left renal cyst which does not need further imaging evaluation. There is mild free fluid in the pelvis. There are moderately prominent mesenteric vessels. SPINAL LEVELS: T12-L1: The facet joints appear normal bilaterally. Disc contour is normal. There is no central stenosis or foraminal narrowing. L1-L2: The facet joints appear normal. There is posterior protrusion of the superior body of L2 and the spinal canal with approximately 15-20% central stenosis. The neural foramina are patent bilaterally. L2-L3: The facet joints appear normal bilaterally. Disc contour is normal. There is no central stenosis or foraminal narrowing. L3-L4: There is minimal facet arthropathy bilaterally. There is posterior protrusion of the superior body of L4 into the spinal canal with approximately 30-40% central stenosis, not significantly changed compared to prior imaging. The neural foramina are patent bilaterally. L4-L5: The facet joints appear normal bilaterally. There is mild posterior protrusion of the superior body of L5 into the the spinal canal with minimal central stenosis. The neural foramina are patent. L5-S1: The facet joints appear normal bilaterally. Disc contour is normal. There is no central stenosis or foraminal narrowing. CT/CT thoracic spine w IV con IMPRESSION: Thoracic Spine: 1. There are now sequelae of kyphoplasties in the bodies of T10 and T11. There is loss of vertebral body height of T7 and T8 on the current study, not demonstrated on the prior MRI scan. Bone mineralization is diffusely decreased consistent with osteopenia or osteoporosis. 2. There is hyperkyphosis at the level of T10-T11. There are no acute subluxations. The paravertebral structures are unremarkable. Lumbar Spine: 1. There are compression fractures of the bodies of L2, L4 and L5. The fractures of L2 and L5 are new compared to the prior MRI scan, and there has been interval worsening of the compression fracture of L4. 2. There are posterior protrusions of the superior bodies of L2, L4 and L5 into the spinal canal with central stenosis at these levels as described above. There is posterior protrusion of the superior body of L4 into the spinal canal at L3-L4 with approximately 30-40% central stenosis. The neural foramina appear patent. 3. There is diffuse osteopenia or osteoporosis. 4. There is mild free fluid in the pelvis. Dictated By: AUTUMN REAGAN MD Signed By: <Electronically signed by AUTUMN REAGAN MD in OV> 03/28/24 1437 DD/ 1153 TD/TT: Preconstruction Manager: MARLY CT lumbar spine w con Reviewed date:03/29/2024 01:25:55 PM Interpretation: Performing Lab: Notes/Report: [address] [address] [address] Scan Report Signed Patient: Javi Smith MR#: [id number] 8 : 1985 Acct:[id number] Age/Sex: 39 / M ADM Date: 03/28/24 Loc: HO.ED Attending Dr: Ordering Physician: Nita Garza Date of Service: 03/28/24 Procedure(s): CT lumbar spine w IV con Accession Number(s): [id number] cc: Alfonso Sierra MD; Nita Garza EXAMINATION: CT THORACIC SPINE WITH CONTRAST CT LUMBAR SPINE WITH CONTRAST CLINICAL INFORMATION: Recent surgery, altered mental status. COMPARISON: Plain films of the lumbar spine earlier. MRI scan of the lumbar and thoracic spines 01/10/2024. CT scan of the thoracic spine [facility] 12/27/2023. 03/28/2024 TECHNIQUE: Thoracic spine, which was demonstrated on prior imaging. Overall, bone mineralization is markedly decreased, consistent with osteopenia/osteoporosis. Postcontrast axial CT scans of the thoracic and lumbar spine were obtained following the intravenous administration of 85 mL of Omnipaque 350. Coronal and sagittal reformatted images were generated at the technologist workstation. This CT examination was performed using dose optimization techniques as appropriate, variously including the following: *Automated exposure control *Adjustment of mA and/or kV according to patient size (this includes techniques or standardized protocols for targeted exams where dose is matched to indication/reason for exam; i.e. extremities or head) *Use of iterative reconstruction technique DLP: 1511 mGy-cm. FINDINGS: CT THORACIC SPINE: VERTEBRAL BODIES AND PARASPINAL STRUCTURES: There is hyperkyphosis in the lower thoracic spine at the level of T10-T11, demonstrated on prior imaging. There are now sequelae of kyphoplasties in the bodies of T10 and T11, demonstrated on the concurrent plain films of the lumbar spine. There is loss of vertebral body height of T7 and T8 on the current study, not demonstrated on the prior MRI scan. There is invagination of disc into the superior endplates at multiple levels in the upper thoracic spine. Bone mineralization is diffusely decreased consistent with osteopenia or osteoporosis. There is good parenchymal enhancement of the bilateral kidneys. There is bibasilar atelectasis, more extensive posteriorly on the left. SPINAL LEVELS: C7-T1 through T5-T6: Posterior vertebral body and disc contours are normal in is no central stenosis or cord compression. The neural foramina appear patent. T6-T7: There is slight posterior protrusion of the superior body of T7 into the spinal canal, but there is no central stenosis and the neural foramina are patent bilaterally. T7-T8: There is posterior protrusion of the superior body of T8 into the spinal canal without significant stenosis. The neural foramina are patent bilaterally. T10-T11: As described above there are kyphoplasties at these levels. There is posterior protrusion of the superior body of T11 into the spinal canal with approximately 20% central stenosis. The neural foramina appear patent. CT LUMBAR SPINE: FINDINGS: VERTEBRAL BODIES AND PARASPINAL STRUCTURES: There is overall anatomic alignment of the vertebral bodies. There are compression fractures of the bodies of L2, L4 and L5. There has been interval worsening of the compression fracture of the superior body of L4, with invagination of disc into the superior endplate. There are superior compression fractures of the bodies of L2 and L5 which are new compared to the prior MRI scan. Intervertebral disc heights are maintained. Bone mineralization is diffusely decreased consistent with osteopenia or osteoporosis. There is a 1.3 cm left renal cyst which does not need further imaging evaluation. There is mild free fluid in the pelvis. There are moderately prominent mesenteric vessels. SPINAL LEVELS: T12-L1: The facet joints appear normal bilaterally. Disc contour is normal. There is no central stenosis or foraminal narrowing. L1-L2: The facet joints appear normal. There is posterior protrusion of the superior body of L2 and the spinal canal with approximately 15-20% central stenosis. The neural foramina are patent bilaterally. L2-L3: The facet joints appear normal bilaterally. Disc contour is normal. There is no central stenosis or foraminal narrowing. L3-L4: There is minimal facet arthropathy bilaterally. There is posterior protrusion of the superior body of L4 into the spinal canal with approximately 30-40% central stenosis, not significantly changed compared to prior imaging. The neural foramina are patent bilaterally. L4-L5: The facet joints appear normal bilaterally. There is mild posterior protrusion of the superior body of L5 into the the spinal canal with minimal central stenosis. The neural foramina are patent. L5-S1: The facet joints appear normal bilaterally. Disc contour is normal. There is no central stenosis or foraminal narrowing. CT/CT lumbar spine w IV con IMPRESSION: Thoracic Spine: 1. There are now sequelae of kyphoplasties in the bodies of T10 and T11. There is loss of vertebral body height of T7 and T8 on the current study, not demonstrated on the prior MRI scan. Bone mineralization is diffusely decreased consistent with osteopenia or osteoporosis. 2. There is hyperkyphosis at the level of T10-T11. There are no acute subluxations. The paravertebral structures are unremarkable. Lumbar Spine: 1. There are compression fractures of the bodies of L2, L4 and L5. The fractures of L2 and L5 are new compared to the prior MRI scan, and there has been interval worsening of the compression fracture of L4. 2. There are posterior protrusions of the superior bodies of L2, L4 and L5 into the spinal canal with central stenosis at these levels as described above. There is posterior protrusion of the superior body of L4 into the spinal canal at L3-L4 with approximately 30-40% central stenosis. The neural foramina appear patent. 3. There is diffuse osteopenia or osteoporosis. 4. There is mild free fluid in the pelvis. Dictated By: AUTUMN REAGAN MD Signed By: <Electronically signed by AUTUMN REAGAN MD in OV> 03/28/24 1437 DD/ 1153 TD/TT: Preconstruction Manager: MARLY CT cervical spine wo con Reviewed date:03/29/2024 01:34:23 PM Interpretation: Performing Lab: Notes/Report: [address] [address] [address] Scan Report Signed Patient: Javi Smith MR#: [id number] 8 : 1985 Acct:[id number] Age/Sex: 39 / M ADM Date: 03/28/24 Loc: HO.ED Attending Dr: Ordering Physician: Nita Garza Date of Service: 03/28/24 Procedure(s): CT cervical spine wo IV con Accession Number(s): [id number] cc: Alfonso Sierra MD; Nita Garza EXAMINATION: CT HEAD WITHOUT CONTRAST CLINICAL INFORMATION: Altered mental status COMPARISON: None TECHNIQUE: Contiguous axial imaging was performed from the skull base to vertex without intravenous administration of contrast. This CT examination was performed using dose optimization techniques as appropriate, variously including the following: *Automated exposure control *Adjustment of mA and/or kV according to patient size (this includes techniques or standardized protocols for targeted exams where dose is matched to indication/reason for exam; i.e. extremities or head) *Use of iterative reconstruction technique DLP: 866.7 mGy-cm FINDINGS: There is no evidence of acute intracranial hemorrhage or territorial infarction. No abnormal mass effect or midline shift is seen. Yeager to white matter differentiation is well preserved. No extra-axial fluid collections are identified. The ventricles are normal in size. There is no abnormal attenuation within the brain parenchyma. The osseous structures and soft tissues are normal. Mucoperiosteal thickening of the bilateral maxillary and right frontal sinus. The mastoid air cells and visualized portions of the paranasal sinuses are well aerated. CT/CT cervical spine wo IV con IMPRESSION: No acute intracranial pathology. EXAMINATION: Noncontrast CT scan of the cervical spine. INDICATION: Altered mental status COMPARISON: None. TECHNIQUE: Helical, multidetector axial images were obtained from the occiput to the upper thorax. Coronal and sagittal reformats of the cervical spine were provided for interpretation. DLP: 349.7 mGy-cm FINDINGS: No acute fractures or dislocations of the cervical spine are seen. Anatomic alignment and positioning of the vertebral bodies and posterior elements is noted. The atlantoaxial joint and craniovertebral articulations are normal without evidence of subluxation. There is no prevertebral soft tissue swelling. The thyroid gland and visualized portions of the lung apices and mediastinum are unremarkable. IMPRESSION: No acute visible fracture or dislocation. Dictated By: Ramon Brewer MD Signed By: <Electronically signed by Ramon Brewer MD in OV> 03/28/24 1218 DD/ 1153 TD/TT: Preconstruction Manager: CT head/brain wo con Reviewed date:03/29/2024 01:34:51 PM Interpretation: Performing Lab: Notes/Report: [address] [address] [address] Scan Report Signed Patient: Javi Smith MR#: [id number] 8 : 1985 Acct:[id number] Age/Sex: 39 / M ADM Date: 03/28/24 Loc: HO.ED Attending Dr: Ordering Physician: Nita Garza Date of Service: 03/28/24 Procedure(s): CT head/brain wo IV con Accession Number(s): [id number] cc: Alfonso Sierra MD; Nita Garza EXAMINATION: CT HEAD WITHOUT CONTRAST CLINICAL INFORMATION: Altered mental status COMPARISON: None TECHNIQUE: Contiguous axial imaging was performed from the skull base to vertex without intravenous administration of contrast. This CT examination was performed using dose optimization techniques as appropriate, variously including the following: *Automated exposure control *Adjustment of mA and/or kV according to patient size (this includes techniques or standardized protocols for targeted exams where dose is matched to indication/reason for exam; i.e. extremities or head) *Use of iterative reconstruction technique DLP: 866.7 mGy-cm FINDINGS: There is no evidence of acute intracranial hemorrhage or territorial infarction. No abnormal mass effect or midline shift is seen. Yeager to white matter differentiation is well preserved. No extra-axial fluid collections are identified. The ventricles are normal in size. There is no abnormal attenuation within the brain parenchyma. The osseous structures and soft tissues are normal. Mucoperiosteal thickening of the bilateral maxillary and right frontal sinus. The mastoid air cells and visualized portions of the paranasal sinuses are well aerated. CT/CT head/brain wo IV con IMPRESSION: No acute intracranial pathology. EXAMINATION: Noncontrast CT scan of the cervical spine. INDICATION: Altered mental status COMPARISON: None. TECHNIQUE: Helical, multidetector axial images were obtained from the occiput to the upper thorax. Coronal and sagittal reformats of the cervical spine were provided for interpretation. DLP: 349.7 mGy-cm FINDINGS: No acute fractures or dislocations of the cervical spine are seen. Anatomic alignment and positioning of the vertebral bodies and posterior elements is noted. The atlantoaxial joint and craniovertebral articulations are normal without evidence of subluxation. There is no prevertebral soft tissue swelling. The thyroid gland and visualized portions of the lung apices and mediastinum are unremarkable. IMPRESSION: No acute visible fracture or dislocation. Dictated By: Ramon Brewer MD Signed By: <Electronically signed by Ramon Brewer MD in OV> 03/28/24 1218 DD/ 1153 TD/TT: Preconstruction Manager: US abdomen limited Reviewed date:03/29/2024 01:36:52 PM Interpretation: Performing Lab: Notes/Report: [address] [address] Ultrasound Report Signed Patient: Javi Smith MR#: [id number] 8 : 1985 Acct:[id number] Age/Sex: 39 / M ADM Date: 03/28/24 Loc: HO.ED Attending Dr: Ordering Physician: Nita Garza Date of Service: 03/28/24 Procedure(s): US abdomen limited Accession Number(s): [id number] cc: Alfonso Sierra MD; Nita Garza EXAMINATION: US ABDOMEN LIMITED CLINICAL INFORMATION: Elevated LFT. COMPARISON: Prior study November 2022 TECHNIQUE: Real-time imaging of the right upper quadrant abdominal viscera. FINDINGS: PANCREAS: The visualized portion of the pancreas head and body are normal, portion of the pancreatic body and tail, not visualized are obscured by bowel gas. 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 The liver is normal in size. The liver contour is normal. Parenchymal echogenicity is normal. No focal hepatic lesion. There is no intrahepatic biliary duct dilatation seen. GALLBLADDER: Markedly distended The gallbladder is physiologically distended without evidence of stones, sludge, polyps, wall thickening or pericholecystic fluid. COMMON BILE DUCT: Normal in caliber measuring 0.3 cm in diameter. RIGHT KIDNEY: Normal. No hydronephrosis. No renal calculi or focal parenchymal lesions. The kidney measures 10.4 cm in maximum dimension. FREE FLUID: None. US/US abdomen limited IMPRESSION: 1. 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 2. No ultrasound evidence of focal liver lesion. Dictated By: Rosana Ramirez MD Signed By: <Electronically signed by Rosana Ramirez MD in OV> 03/28/24 1322 DD/ 1230 TD/TT: Preconstruction Manager: HS XR chest 1V Reviewed date:03/29/2024 01:31:39 PM Interpretation: Performing Lab: Notes/Report: [place] [address] XRay Report Signed Patient: Javi Smith MR#: [id number] 8 : 1985 Acct:[id number] Age/Sex: 39 / M ADM Date: 03/28/24 Loc: HO.ED Attending Dr: Ordering Physician: Nita Garza Date of Service: 03/28/24 Procedure(s): XR chest 1V Accession Number(s): [id number] cc: Alfonso Sierra MD; Nita Garza EXAMINATION: XR chest 1V CLINICAL INFORMATION: Reason for Exam AMS COMPARISON: No prior chest x-ray available TECHNIQUE: Single portable frontal view. Tubes and lines: None Lungs and pleura: Diminished lung volume, Diffuse increased interstitial lung marking and peribronchial cuffing might be a small airway disease such as bronchiolitis or interstitial pneumonitis, versus interstitial lung disease versus interstitial edema. No dense focal consolidation pneumonia. Heart and mediastinum: Heart and mediastinum are widened exaggerated by AP technique.. Bones/soft tissue: Skeletal structures included are normal for patient's age. XR/XR chest 1V IMPRESSION: 1. Diminished lung volume. 2. Diffuse increased interstitial lung marking and peribronchial cuffing might be a small airway disease such as bronchiolitis or interstitial pneumonitis, versus interstitial lung disease versus interstitial edema. No dense focal consolidation pneumonia. Dictated By: Rosana Ramirez MD Signed By: <Electronically signed by Rosana Ramirez MD in OV> 03/28/24 1248 DD/ 1152 TD/TT: Preconstruction Manager: XR lumbar spine 2-3V Reviewed date:03/29/2024 01:41:09 PM Interpretation: Performing Lab: Notes/Report: [address] [address] XRay Report Signed Patient: Javi Smith MR#: [id number] 8 : 1985 Acct:[id number] Age/Sex: 39 / M ADM Date: 03/28/24 Loc: HO.ED Attending Dr: Ordering Physician: Generic ED Physician Date of Service: 03/28/24 Procedure(s): XR lumbar spine 2-3V Accession Number(s): [id number] cc: Alfonso Sierra MD; Generic ED Physician EXAMINATION: XR LUMBOSACRAL SPINE CLINICAL INFORMATION: Low back pain COMPARISON: Mild lumbar spine from 01/10/2024 TECHNIQUE: Three views of the lumbosacral spine. FINDINGS: 5 nonrib-bearing lumbar-type vertebral bodies. Status post vertebral augmentation of T10 and T11. Loss of height of the superior endplate of L5, chronicity indeterminate. Redemonstrated loss of height of superior endplate of L4. Vertebral body heights and disc spaces are otherwise maintained. Posterior elements are intact. Paraspinal soft tissues are unremarkable. Fecal loading of the colon. Hernia mesh right lower abdomen. XR/XR lumbar spine 2-3V IMPRESSION: 1. Status post vertebral augmentation of T10 and T11. 2. Loss of height of the superior endplate of L5, chronicity indeterminate. Correlation with physical exam. 3. Redemonstrated loss of height of superior endplate of L4. Dictated By: Ramon Brewer MD Signed By: <Electronically signed by Ramon Brewer MD in OV> 03/28/24 1019 DD/ 1000 TD/TT: Preconstruction Manager: Complete Blood Count no Diff Reviewed date:03/30/2024 12:44:16 PM Interpretation: Performing Lab:[facility], [address] [place] [phone] Notes/Report: White Blood Count 13.0 4.8-10.8 X10*3/uL Red Blood Count 4.92 4.60-5.80 X10*6/uL Hemoglobin 15.1 14.0-18.0 g/dl Hematocrit 43.9 42.0-52.0 % Mean Corpuscular Volume 89.2 80.0-98.0 fL Mean Corpuscular Hemoglobin 30.7 27.0-33.0 pg Mean Corpuscular HGB Conc 34.4 31.0-36.0 g/dl Red Cell Distribution Width 13.4 11.0-16.0 % Platelet Count 228 160-400 X10*3/uL Mean Platelet Volume 10.1 9.4-12.4 fL NRBC Pct Auto 0.0 0.0-0.2 /100WBC NRBC Abs Auto 0.000 0.0-0.012 X10*3/uL Comprehensive Met. Panel Reviewed date:03/29/2024 01:46:19 PM Interpretation: Performing Lab:[facility], [address] [place] [phone] Notes/Report: Sodium 140 135-145 mmol/L Potassium 4.2 3.3-5.1 mmol/L Slight Hemoly sis Chloride 108 96-108 mmol/L Carbon Dioxide 21 22-29 mmol/L Anion Gap 15 12-20 Blood Urea Nitrogen 10 9-16 mg/dL Creatinine 0.63 0.5-1.4 mg/dL Creatinine Clr Calc Pharmacy 134.4 eGFR (calculated from the MDRD study equation) and eCrCl (calculated from the Cockcroft-Gault equation) are based on different parameters and may not yield comparable results. If eCrCl result is absurd, please check patient's height/weight. Estimated Glomerular Filt Rate > 60 NOTE: For -Vincentian individuals, multiply the result by 1.210. Chronic Kidney Disease: Estimated GFR < 60 mL/min/1.73m2 Severe Kidney Disease: Estimated GFR < 15 mL/min/1.73m2 Glucose Random 108 60-115 mg/dL Calcium 9.3 8.4-10.2 mg/dL Bilirubin Total 1.8 0.0-1.0 mg/dL Aspartate Amino Transferase 78 5-37 U/L Slight Hemolysis Alanine Aminotransferase 127 0-40 U/L Total Protein 7.6 6.5-8.0 g/dL Albumin Level 4.0 3.5-5.0 g/dL Alkaline Phosphatase 418 39-117 U/L Ammonia Reviewed date:03/29/2024 01:28:35 PM Interpretation: Performing Lab:[address] [address] Notes/Report: Ammonia 50 13-55 umol/L Complete Blood Count no Diff Reviewed date:03/30/2024 09:06:07 AM Interpretation: Performing Lab:[address] [address] Notes/Report: White Blood Count 15.1 4.8-10.8 X10*3/uL Red Blood Count 5.94 4.60-5.80 X10*6/uL Hemoglobin 18.3 14.0-18.0 g/dl Hematocrit 52.6 42.0-52.0 % Mean Corpuscular Volume 88.6 80.0-98.0 fL Mean Corpuscular Hemoglobin 30.8 27.0-33.0 pg Mean Corpuscular HGB Conc 34.8 31.0-36.0 g/dl Red Cell Distribution Width 13.4 11.0-16.0 % Platelet Count 317 160-400 X10*3/uL Mean Platelet Volume 9.8 9.4-12.4 fL NRBC Pct Auto 0.0 0.0-0.2 /100WBC NRBC Abs Auto 0.000 0.0-0.012 X10*3/uL Liver Panel Reviewed date:03/30/2024 08:39:40 AM Interpretation: Performing Lab:[address] [address] Notes/Report: Bilirubin Total 1.9 0.0-1.0 mg/dL Bilirubin Direct 0.7 0.0-0.5 mg/dL Aspartate Amino Transferase 51 5-37 U/L Alanine Aminotransferase 106 0-40 U/L Total Protein 8.5 6.5-8.0 g/dL Albumin Level 4.4 3.5-5.0 g/dL Alkaline Phosphatase 424 39-117 U/L Basic Metabolic Panel Fastin g Reviewed date:03/30/2024 12:41:10 PM Interpretation: Performing Lab:[facility], [address] [place] [phone] Notes/Report: Sodium 141 135-145 mmol/L Potassium 4.1 3.3-5.1 mmol/L Chloride 105 96-108 mmol/L Carbon Dioxide 21 22-29 mmol/L Anion Gap 19 12-20 Blood Urea Nitrogen 21 9-16 mg/dL Creatinine 0.98 0.5-1.4 mg/dL Creatinine Clr Calc Pharmacy 86.4 eGFR (calculated from the MDRD study equation) and eCrCl (calculated from the Cockcroft-Gault equation) are based on different parameters and may not yield comparable results. If eCrCl result is absurd, please check patient's height/weight. Estimated Glomerular Filt Rate > 60 NOTE: For -Vincentian individuals, multiply the result by 1.210. Chronic Kidney Disease: Estimated GFR < 60 mL/min/1.73m2 Severe Kidney Disease: Estimated GFR < 15 mL/min/1.73m2 Glucose Fasting 186 60-99 mg/dL A fasting glucose of 126 mg/dl or greater on more than one occasion is considered diagnostic of diabetes. Calcium 10.7 8.4-10.2 mg/dL Lactic Acid Reviewed date:03/30/2024 08:39:18 AM Interpretation: Performing Lab:[facility], [address] [place] [phone] Notes/Report: Lactic Acid 2.7 0.5-2.0 mmol/L Critical lactic sent by a secure message and confirmed by tay anthony 03/30/24 0823 Tech: [email or web address] Magnesium Reviewed date:03/30/2024 08:40:19 AM Interpretation: Performing Lab:[address] [address] Notes/Report: Magnesium 2.3 1.6-2.6 mg/dL Ammonia Reviewed date:03/30/2024 08:42:38 AM Interpretation: Performing Lab:[address] [address] Notes/Report: Ammonia 70 13-55 umol/L Lipase Reviewed date:03/30/2024 08:40:07 AM Interpretation: Performing Lab:[facility], [address] [place] [phone] Notes/Report: Lipase 11 8-78 U/L Blood Culture (First) Reviewed date:04/04/2024 06:08:26 PM Interpretation: Performing Lab:[facility], [address] [place] [phone] Notes/Report: Blood Culture (First) No growth after 5 days. Blood Culture (Second) Reviewed date:04/04/2024 06:08:26 PM Interpretation: Performing Lab:[facility], [address] [place] [phone] Notes/Report: Blood Culture (Second) No growth after 5 days. Lactic Acid-LAB USE ONLY Reviewed date:03/30/2024 12:20:53 PM Interpretation: Performing Lab:[facility], [address] [place] [phone] Notes/Report: Lactic Acid-LAB USE ONLY 2.9 0.5-2.0 mmol/L Critical lactic sent by a secure message and confirmed by Tay Anthony 1044 03/30/24 Tech: natan Cancel Lactic Acid Reviewed date:03/30/2024 12:12:11 PM Interpretation: Performing Lab:[facility], [address] [place] [phone] Notes/Report: Cancel Lactic Acid Canceled Gastric Occult Blood Test Reviewed date:03/30/2024 08:42:53 AM Interpretation: Performing Lab:[facility], [address] [place] [phone] Notes/Report: Occult Blood Gastric POSITIVE NEG CT abdomen pelvis w con Reviewed date:03/30/2024 12:14:13 PM Interpretation: Performing Lab: Notes/Report: [address] [place] [address] CT Scan Report Signed Patient: Javi Smith MR#: [id number] 8 : 1985 Acct:[id number] Age/Sex: 39 / M ADM Date: 03/28/24 Loc: [facility] 474-[address]: Tay Anthony MD Ordering Physician: Maritza Etienne MD Date of Service: 03/30/24 Procedure(s): CT abdomen pelvis w IV con Accession Number(s): [id number] cc: Alfonso Sierra MD; Maritza Etienne MD EXAMINATION: CT ABDOMEN AND PELVIS WITH CONTRAST CLINICAL INFORMATION: Severe abdominal distention COMPARISON: Ultrasound abdomen dated 03/28/2024 TECHNIQUE: Multidetector volumetric images were obtained from the superior aspect of the liver through the pubic symphysis following administration 85 mL of Omnipaque 350 intravenous contrast. Sagittal and coronal reformatted images were obtained on the technologist's workstation. Oral contrast: No This CT examination was performed using dose optimization techniques as appropriate, variously including the following: *Automated exposure control *Adjustment of mA and/or kV according to patient size (this includes techniques or standardized protocols for targeted exams where dose is matched to indication/reason for exam; i.e. extremities or head) *Use of iterative reconstruction technique DLP: 512 mGy-cm FINDINGS: LUNG BASES: Bibasilar infiltrates or consolidations and small bibasilar effusions. LIVER, GALLBLADDER, AND BILIARY TREE: Slight periportal edema. There is a history of sclerosing cholangitis in this patient. No suspicious mass or intrahepatic biliary dilatation. The gallbladder is unremarkable with no evidence of radiopaque gallstones, gallbladder wall thickening, or obvious pericholecystic inflammatory changes. PANCREAS: Unremarkable. SPLEEN: Unremarkable. ADRENAL GLANDS: Unremarkable. KIDNEYS AND URETERS: No suspicious mass or calcification, hydronephrosis, or perinephric collection. There is a small cyst upper right kidney at 6 mm, and a small cyst medial inferior left kidney at 9 mm. No further workup needed. BLADDER: Unremarkable. GASTROINTESTINAL TRACT: Abnormal. There is extensive distention of the small bowel loops which are fluid-filled. There is a large volume of stool within the colon. The colon is diffusely distended as well. Is the patient on pain medication? There may be trace fluid surrounding the cecum. I do not see any drainable collections or obstructing masses or causes of an acute obstruction other than the large volume of stool within the rectum. The appendix is not identified. ABDOMINAL WALL: No significant ventral hernia noted. There are surgical sutures overlying the right inguinal region. No evidence for recurrent inguinal hernia although some bowel loops extending towards the left inguinal region. LYMPH NODES: Normal. VASCULAR: Unremarkable. PELVIC VISCERA: Unremarkable. OSSEOUS STRUCTURES: There are moderate compression deformities observed, L2, L4, L5 and post vertebral plasty changes observed T10, and T11. CT/CT abdomen pelvis w IV con IMPRESSION: Severe diffuse enteric distention without a focal area of obstruction. Prominence to the portal triads possibly reflective of edema was noted on a recent ultrasound as well. Fleischner guidelines were followed. Dictated By: Elvis Ortiz MD Signed By: <Electronically signed by Elvis Ortiz MD in OV> 03/30/24 1052 DD/ 1014 TD/TT: Preconstruction Manager: XR chest 1V Reviewed date:03/31/2024 04:43:32 PM Interpretation: Performing Lab: Notes/Report: [place] [address] XRay Report Signed Patient: Javi Smith MR#: [id number] 8 : 1985 Acct:[id number] Age/Sex: 39 / M ADM Date: 03/28/24 Loc: [facility] 474-[address]: Tay Anthony MD Ordering Physician: Tay Anthony MD Date of Service: 03/30/24 Procedure(s): XR chest 1V Accession Number(s): [id number] cc: Alfonso Sierra MD; Tay Anthony MD EXAMINATION: XR chest 1V CLINICAL INFORMATION: Reason for Exam hypoxia COMPARISON: 03/28/2024 TECHNIQUE: Single portable frontal view. Tubes and lines: None Lungs and pleura: Diminished lung volume, pulmonary vascular congestion and diffuse increased interstitial opacification possibly interstitial edema. Blunting of costophrenic angle suggesting small subpulmonic pleural effusions. Heart and mediastinum: Cardiac silhouette is enlarged cardiomegaly unchanged.. Bones/soft tissue: Dilated bowel loops under the diaphragm, this has been described on the CT abdomen same day. XR/XR chest 1V IMPRESSION: 1. Cardiomegaly, pulmonary vascular congestion, diffuse increased interstitial opacification possibly mild interstitial edema. 2. Small subpulmonic pleural effusions. Dictated By: Rosana Ramirez MD Signed By: <Electronically signed by Rosana Ramirez MD in OV> 03/30/242100 DD/ 49 TD/TT: Preconstruction Manager: Complete Blood Count no Diff Reviewed date:03/31/2024 04:43:32 PM Interpretation: Performing Lab:[facility], [address] [place] [phone] Notes/Report: White Blood Count 15.1 4.8-10.8 X10*3/uL Red Blood Count 5.76 4.60-5.80 X10*6/uL Hemoglobin 17.7 14.0-18.0 g/dl Hematocrit 51.0 42.0-52.0 % Mean Corpuscular Volume 88.5 80.0-98.0 fL Mean Corpuscular Hemoglobin 30.7 27.0-33.0 pg Mean Corpuscular HGB Conc 34.7 31.0-36.0 g/dl Red Cell Distribution Width 13.5 11.0-16.0 % Platelet Count 315 160-400 X10*3/uL Mean Platelet Volume 10.2 9.4-12.4 fL NRBC Pct Auto 0.0 0.0-0.2 /100WBC NRBC Abs Auto 0.000 0.0-0.012 X10*3/uL Complete Blood Count Auto Di ff Reviewed date:03/31/2024 04:43:32 PM Interpretation: Performing Lab:[facility], [address] [place] [phone] Notes/Report: White Blood Count 14.0 4.8-10.8 X10*3/uL Red Blood Count 5.67 4.60-5.80 X10*6/uL Hemoglobin 17.5 14.0-18.0 g/dl Hematocrit 50.3 42.0-52.0 % Mean Corpuscular Volume 88.7 80.0-98.0 fL Mean Corpuscular Hemoglobin 30.9 27.0-33.0 pg Mean Corpuscular HGB Conc 34.8 31.0-36.0 g/dl Red Cell Distribution Width 13.6 11.0-16.0 % Platelet Count 305 160-400 X10*3/uL Mean Platelet Volume 10.3 9.4-12.4 fL Neutrophils Percent Auto 85.4 45-73 % Imm Gran Pct Auto 0.4 0.0-0.4 % Lymphocytes Percent Auto 6.1 20-40 % Monocytes Percent Auto 7.9 2-11 % Eosinophils Percent Auto 0.1 0-4 % Basophils Percent Auto 0.1 0-2 % NRBC Pct Auto 0.0 0.0-0.2 /100WBC Neutrophils Absolute Auto 12.0 2.0-8.3 x10*3/u L Imm Gran Abs Auto 0.06 0.00-0.03 X10*3/uL Lymphocytes Absolute Auto 0.9 1.2-4.9 X10*3/u L Monocytes Absolute Auto 1.1 0.1-1.2 X10*3/uL Eosinophils Absolute Auto 0.0 0.0-0.4 X10*3/u L Basophils Absolute Auto 0.0 0.0-0.2 X10*3/uL NRBC Abs Auto 0.000 0.0-0.012 X10*3/uL Comprehensive Met. Panel Reviewed date:03/31/2024 04:43:32 PM Interpretation: Performing Lab:[facility], [address] [place] [phone] Notes/Report: Sodium 141 135-145 mmol/L Potassium 4.3 3.3-5.1 mmol/L Chloride 104 96-108 mmol/L Carbon Dioxide 25 22-29 mmol/L Anion Gap 16 12-20 Blood Urea Nitrogen 37 9-16 mg/dL Creatinine 1.29 0.5-1.4 mg/dL Creatinine Clr Calc Pharmacy 65.6 eGFR (calculated from the MDRD study equation) and eCrCl (calculated from the Cockcroft-Gault equation) are based on different parameters and may not yield comparable results. If eCrCl result is absurd, please check patient's height/weight. Estimated Glomerular Filt Rate > 60 NOTE: For -Vincentian individuals, multiply the result by 1.210. Chronic Kidney Disease: Estimated GFR < 60 mL/min/1.73m2 Severe Kidney Disease: Estimated GFR < 15 mL/min/1.73m2 Glucose Random 169 60-115 mg/dL Calcium 10.5 8.4-10.2 mg/dL Bilirubin Total 1.8 0.0-1.0 mg/dL Aspartate Amino Transferase 58 5-37 U/L Alanine Aminotransferase 83 0-40 U/L Total Protein 8.0 6.5-8.0 g/dL Albumin Level 4.1 3.5-5.0 g/dL Alkaline Phosphatase 341 39-117 U/L Liver Panel Reviewed date:03/31/2024 04:43:32 PM Interpretation: Performing Lab:[facility], [address] [place] [phone] Notes/Report: Bilirubin Total 2.0 0.0-1.0 mg/dL Bilirubin Direct 0.7 0.0-0.5 mg/dL Aspartate Amino Transferase 63 5-37 U/L Alanine Aminotransferase 80 0-40 U/L Total Protein 8.1 6.5-8.0 g/dL Albumin Level 4.2 3.5-5.0 g/dL Alkaline Phosphatase 337 39-117 U/L Basic Metabolic Panel Reviewed date:03/31/2024 04:43:32 PM Interpretation: Performing Lab:[facility], [address] [place] [phone] Notes/Report: Sodium 143 135-145 mmol/L Potassium 4.4 3.3-5.1 mmol/L Chloride 104 96-108 mmol/L Carbon Dioxide 26 22-29 mmol/L Anion Gap 17 12-20 Blood Urea Nitrogen 49 9-16 mg/dL Creatinine 1.18 0.5-1.4 mg/dL Creatinine Clr Calc Pharmacy 71.7 eGFR (calculated from the MDRD study equation) and eCrCl (calculated from the Cockcroft-Gault equation) are based on different parameters and may not yield comparable results. If eCrCl result is absurd, please check patient's height/weight. Estimated Glomerular Filt Rate > 60 NOTE: For -Vincentian individuals, multiply the result by 1.210. Chronic Kidney Disease: Estimated GFR < 60 mL/min/1.73m2 Severe Kidney Disease: Estimated GFR < 15 mL/min/1.73m2 Glucose Random 129 60-115 mg/dL Calcium 10.5 8.4-10.2 mg/dL Basic Metabolic Panel Fastin g Reviewed date:03/31/2024 04:43:32 PM Interpretation: Performing Lab:[facility], [address] [place] [phone] Notes/Report: Sodium 141 135-145 mmol/L Potassium 4.5 3.3-5.1 mmol/L Chloride 104 96-108 mmol/L Carbon Dioxide 24 22-29 mmol/L Anion Gap 18 12-20 Blood Urea Nitrogen 44 9-16 mg/dL Creatinine 1.28 0.5-1.4 mg/dL Creatinine Clr Calc Pharmacy 66.1 eGFR (calculated from the MDRD study equation) and eCrCl (calculated from the Cockcroft-Gault equation) are based on different parameters and may not yield comparable results. If eCrCl result is absurd, please check patient's height/weight. Estimated Glomerular Filt Rate > 60 NOTE: For -Vincentian individuals, multiply the result by 1.210. Chronic Kidney Disease: Estimated GFR < 60 mL/min/1.73m2 Severe Kidney Disease: Estimated GFR < 15 mL/min/1.73m2 Glucose Fasting 147 60-99 mg/dL A fasting glucose of 126 mg/dl or greater on more than one occasion is considered diagnostic of diabetes. Calcium 10.7 8.4-10.2 mg/dL Lactic Acid Reviewed date:03/31/2024 04:43:32 PM Interpretation: Performing Lab:[facility], [address] [place] [phone] Notes/Report: Lactic Acid 2.7 0.5-2.0 mmol/L Critical [LACTA] sent by a secure message and confirmed by (ARACELI REYNOSO AND CORI REGAN ON [id number] @[id number]) Tech:[email or web address] Phosphorus Reviewed date:03/31/2024 04:43:32 PM Interpretation: Performing Lab:[facility], [address] [place] [phone] Notes/Report: Phosphorus 4.1 2.7-4.5 mg/dL Magnesium Reviewed date:03/31/2024 04:43:32 PM Interpretation: Performing Lab:[facility] HOME, [address] [place] [address] Notes/Report: Magnesium 2.4 1.6-2.6 mg/dL Ammonia Reviewed date:03/31/2024 04:43:32 PM Interpretation: Performing Lab:[address] [address] Notes/Report: Ammonia 82 13-55 umol/L Troponin-I High Sensitivity Reviewed date:03/31/2024 04:43:32 PM Interpretation: Performing Lab:[address] [address] Notes/Report: Troponin-I High Sensitivity 59.9 <3.5-35.0 ng/ L The Vega high sensitivity Troponin-I results should be used in conjunction with other diagnostic information such as ECG, clinical observations and information, and patient symptoms to aid in the diagnosis of ME. B Type Natriuretic Peptide Reviewed date:03/31/2024 04:43:32 PM Interpretation: Performing Lab:[address] [address] Notes/Report: B Type Natriuretic Peptide 224 <100 pg/mL For those patients who are being treated with Natrecor (nesiritide, recombinant BNP), BNP testing should be performed at least two hours post treatment in order to ensure that only endogenous levels of BNP are detected. TSH reflex Free T4 Reviewed date:03/31/2024 04:43:32 PM Interpretation: Performing Lab:[address] [address] Notes/Report: TSH reflex Free T4 1.47 0.32-4.0 uIU/mL Vancomycin Random Reviewed date:03/31/2024 04:43:32 PM Interpretation: Performing Lab:[address] [address] Notes/Report: Vancomycin Random 15.9 15-20 mcg/mL Lactic Acid-LAB USE ONLY Reviewed date:03/31/2024 04:43:32 PM Interpretation: Performing Lab:[address] [address] Notes/Report: Lactic Acid-LAB USE ONLY 2.3 0.5-2.0 mmol/L Critical[LACTA] sent by a secure message and confirmed by (DR.JEISA BYNUM [facility] ON [id number] @ 0310) Tech:VYASRID Venous Blood Gases - POC Reviewed date:03/31/2024 04:43:32 PM Interpretation: Performing Lab:[facility], [address] [place] [address] Notes/Report: VBG pH 7.40 7.32-7.43 METER #: [id number] additional_comment: Nabil vital VBG pCO2 42 METER #: [id number] additional_comment: Nabil vital VBG pO2 46 METER #: [id number] additional_comment: Nabil vital VBG Base Excess 1.8 METER #: [id number] additional_comment: Nabil vital VBG HCO3 26 22-26 mmol/L METER #: [id number] additional_comment: Nabil vital VBG O2 % Saturation 76.0 METER #: [id number] additional_comment: Nabil vital Lactic Acid-LAB USE ONLY Reviewed date:03/31/2024 04:43:32 PM Interpretation: Performing Lab:[facility], [address] [place] [address] Notes/Report: Lactic Acid-LAB USE ONLY 2.2 0.5-2.0 mmol/L Critical [LACTIC] sent by a secure message and confirmed by (Dr. Thomas, 03/31/24 0734) Tech: GALENSA Cancel Lactic Acid Reviewed date:03/31/2024 04:43:32 PM Interpretation: Performing Lab:[facility], [address] [place] [address] Notes/Report: Cancel Lactic Acid Canceled XR KUB Reviewed date:03/31/2024 04:43:32 PM Interpretation: Performing Lab: Notes/Report: [address] [address] XRay Report Signed Patient: Javi Smith MR#: [id number] 8 : 1985 Acct:[id number] Age/Sex: 39 / M ADM Date: 03/28/24 Loc: [facility] 474-[address]: Jose Thomas MD Ordering Physician: Jose Thomas MD Date of Service: 03/31/24 Procedure(s): XR KUB Accession Number(s): [id number] cc: Jose Thomas MD; Alfonso Sierra MD EXAMINATION: XR ABDOMEN KUB CLINICAL INDICATION: Follow-up obstruction versus ileus COMPARISON: [employer]ett Mechanic film 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 FINDINGS: Continued bowel dilatation. This is not felt to be significantly changed from previous. There is felt to be stool in the rectosigmoid. There is felt to be air outlining both small and large bowel. Bilateral basilar lung opacities are also noted. XR/XR KUB IMPRESSION: Continued bowel distention. Not significantly changed from previous. Differential to include ileus versus obstruction. Dictated By: Oswaldo Kwan MD Signed By: <Electronically signed by Oswaldo Kwan MD in OV> 03/31/24 1340 DD/ 1109 TD/TT: Preconstruction Manager: GT Magnesium Reviewed date:03/31/2024 04:43:32 PM Interpretation: Performing Lab:[address] [address] Notes/Report: Magnesium 2.5 1.6-2.6 mg/dL Complete Blood Count Auto Di ff Reviewed date:04/01/2024 07:12:33 PM Interpretation: Performing Lab:[facility], [address] [place] [address] Notes/Report: White Blood Count 12.1 4.8-10.8 X10*3/uL Red Blood Count 5.37 4.60-5.80 X10*6/uL Hemoglobin 16.6 14.0-18.0 g/dl Hematocrit 47.2 42.0-52.0 % Mean Corpuscular Volume 87.9 80.0-98.0 fL Mean Corpuscular Hemoglobin 30.9 27.0-33.0 pg Mean Corpuscular HGB Conc 35.2 31.0-36.0 g/dl Red Cell Distribution Width 13.5 11.0-16.0 % Platelet Count 275 160-400 X10*3/uL Mean Platelet Volume 10.1 9.4-12.4 fL Neutrophils Percent Auto 81.6 45-73 % Imm Gran Pct Auto 0.2 0.0-0.4 % Lymphocytes Percent Auto 8.6 20-40 % Monocytes Percent Auto 9.4 2-11 % Eosinophils Percent Auto 0.0 0-4 % Basophils Percent Auto 0.2 0-2 % NRBC Pct Auto 0.0 0.0-0.2 /100WBC Neutrophils Absolute Auto 9.8 2.0-8.3 x10*3/u L Imm Gran Abs Auto 0.02 0.00-0.03 X10*3/uL Lymphocytes Absolute Auto 1.0 1.2-4.9 X10*3/u L Monocytes Absolute Auto 1.1 0.1-1.2 X10*3/uL Eosinophils Absolute Auto 0.0 0.0-0.4 X10*3/u L Basophils Absolute Auto 0.0 0.0-0.2 X10*3/uL NRBC Abs Auto 0.000 0.0-0.012 X10*3/uL Comprehensive Met. Panel Reviewed date:04/01/2024 07:12:33 PM Interpretation: Performing Lab:[facility], [address] [place] [address] Notes/Report: Sodium 146 135-145 mmol/L Potassium 3.9 3.3-5.1 mmol/L Chloride 104 96-108 mmol/L Carbon Dioxide 24 22-29 mmol/L Anion Gap 22 12-20 Blood Urea Nitrogen 48 9-16 mg/dL Creatinine 1.05 0.5-1.4 mg/dL Creatinine Clr Calc Pharmacy 80.6 eGFR (calculated from the MDRD study equation) and eCrCl (calculated from the Cockcroft-Gault equation) are based on different parameters and may not yield comparable results. If eCrCl result is absurd, please check patient's height/weight. Estimated Glomerular Filt Rate > 60 NOTE: For -Vincentian individuals, multiply the result by 1.210. Chronic Kidney Disease: Estimated GFR < 60 mL/min/1.73m2 Severe Kidney Disease: Estimated GFR < 15 mL/min/1.73m2 Glucose Random 127 60-115 mg/dL Calcium 9.5 8.4-10.2 mg/dL Bilirubin Total 1.8 0.0-1.0 mg/dL Aspartate Amino Transferase 60 5-37 U/L Alanine Aminotransferase 64 0-40 U/L Total Protein 7.1 6.5-8.0 g/dL Albumin Level 3.8 3.5-5.0 g/dL Alkaline Phosphatase 277 39-117 U/L Magnesium Reviewed date:04/01/2024 04:52:53 PM Interpretation: Performing Lab:[facility], [address] [place] [address] Notes/Report: Magnesium 2.3 1.6-2.6 mg/dL Complete Blood Count no Diff Reviewed date:04/01/2024 04:51:40 PM Interpretation: Performing Lab:[facility], [address] [place] [phone] Notes/Report: White Blood Count 10.4 4.8-10.8 X10*3/uL Red Blood Count 5.26 4.60-5.80 X10*6/uL Hemoglobin 16.1 14.0-18.0 g/dl Hematocrit 46.8 42.0-52.0 % Mean Corpuscular Volume 89.0 80.0-98.0 fL Mean Corpuscular Hemoglobin 30.6 27.0-33.0 pg Mean Corpuscular HGB Conc 34.4 31.0-36.0 g/dl Red Cell Distribution Width 13.3 11.0-16.0 % Platelet Count 241 160-400 X10*3/uL Mean Platelet Volume 10.3 9.4-12.4 fL NRBC Pct Auto 0.0 0.0-0.2 /100WBC NRBC Abs Auto 0.000 0.0-0.012 X10*3/uL Hold Lav - Possible Hematolo gy Reviewed date:04/01/2024 12:31:19 PM Interpretation: Performing Lab:[facility], [address] [place] [address] Notes/Report: Hold Lav - Possible Hematology SEE NOTE Specimen will be held untested for 8 hours. Call Hematology if testing is desired. Prothrombin Time INR Reviewed date:04/01/2024 07:12:33 PM Interpretation: Performing Lab:[address] [address] Notes/Report: Prothrombin Time 14.7 11.1-13.3 SEC INTERNATIONAL NORM RATIO 1.2 0.9-1.1 INTERNATIONAL NORMALIZED RATIO (INR) REFERENCE RANGES Reference Range For patients not on anticoagulant therapy: 0.9 - 1.1 INR ranges for oral anticoagulant therapy: For prevention and treatment of venous thrombosis and pulmonary embolism: 2.0 - 3.0 For acute myocardial infarction with aspirin therapy: 2.0 - 3.0 For acute myocardial infarction without aspirin therapy: 3.0 - 4.0 For patients with mechanical prosthetic heart valves: 2.5 - 3.5 PTT Heparin Drip Reviewed date:04/01/2024 07:12:33 PM Interpretation: Performing Lab:[facility], [address] [place] [address] Notes/Report: PTT Heparin Drip 29.5 53-77.9 SEC For information regarding the monitoring of heparin therapy, please refer to Pharmacy. Basic Metabolic Panel Reviewed date:04/01/2024 04:57:03 PM Interpretation: Performing Lab:[facility], [address] [place] [address] Notes/Report: Sodium 146 135-145 mmol/L Potassium 3.8 3.3-5.1 mmol/L Chloride 109 96-108 mmol/L Carbon Dioxide 27 22-29 mmol/L Anion Gap 14 12-20 Blood Urea Nitrogen 44 9-16 mg/dL Creatinine 0.86 0.5-1.4 mg/dL Creatinine Clr Calc Pharmacy 98.4 eGFR (calculated from the MDRD study equation) and eCrCl (calculated from the Cockcroft-Gault equation) are based on different parameters and may not yield comparable results. If eCrCl result is absurd, please check patient's height/weight. Estimated Glomerular Filt Rate > 60 NOTE: For -Vincentian individuals, multiply the result by 1.210. Chronic Kidney Disease: Estimated GFR < 60 mL/min/1.73m2 Severe Kidney Disease: Estimated GFR < 15 mL/min/1.73m2 Glucose Random 133 60-115 mg/dL Calcium 9.5 8.4-10.2 mg/dL Creatinine Reviewed date:04/01/2024 04:50:56 PM Interpretation: Performing Lab:[facility], [address] [place] [address] Notes/Report: Creatinine 0.86 0.5-1.4 mg/dL Creatinine Clr Calc Pharmacy 98.4 eGFR (calculated from the MDRD study equation) and eCrCl (calculated from the Cockcroft-Gault equation) are based on different parameters and may not yield comparable results. If eCrCl result is absurd, please check patient's height/weight. Estimated Glomerular Filt Rate > 60 NOTE: For -Vincentian individuals, multiply the result by 1.210. Chronic Kidney Disease: Estimated GFR < 60 mL/min/1.73m2 Severe Kidney Disease: Estimated GFR < 15 mL/min/1.73m2 Troponin-I High Sensitivity Reviewed date:04/01/2024 07:12:33 PM Interpretation: Performing Lab:[facility], [address] [place] [address] Notes/Report: Troponin-I High Sensitivity 37.4 <3.5-35.0 ng/ L The Vega high sensitivity Troponin-I results should be used in conjunction with other diagnostic information such as ECG, clinical observations and information, and patient symptoms to aid in the diagnosis of ME. B Type Natriuretic Peptide Reviewed date:04/01/2024 07:12:33 PM Interpretation: Performing Lab:[facility], [address] [place] [address] Notes/Report: B Type Natriuretic Peptide 83 <100 pg/mL For those patients who are being treated with Natrecor (nesiritide, recombinant BNP), BNP testing should be performed at least two hours post treatment in order to ensure that only endogenous levels of BNP are detected. Vancomycin Trough Reviewed date:04/01/2024 07:12:33 PM Interpretation: Performing Lab:[facility], [address] [place] [address] Notes/Report: Trough level should be drawn prior to dose number: 2hr before dose @2000 on 04/01 Vancomycin Trough 10.5 10.0-20.0 mcg/mL Arterial Blood Gases - POC Reviewed date:04/01/2024 01:48:15 PM Interpretation: Performing Lab:[facility], [address] [place] [address] Notes/Report: ABG pH 7.46 7.35-7.45 METER #: [id number] additional_comment: Cbroncarr ctrbb abuhas ABG pCO2 35 32-45 mmHg METER #: [id number] additional_comment: Cbroncarr libanbb abuhas ABG pO2 52 83-108 mmHg METER #: [id number] additional_comment: Cbroncarr ctrbb abuhas ABG Base Excess 2.7 METER #: [id number] additional_comment: Cbroncarr ctrbb abuhas ABG HCO3 26 22-26 mmol/L METER #: [id number] additional_comment: Cbroncarr ctrbb abuhas ABG O2 % Saturation 81.0 METER #: [id number] additional_comment: Cbroncarr ctrbb abuhas D Dimer High Sensitivity Reviewed date:04/01/2024 12:36:11 PM Interpretation: Performing Lab:[facility], [address] [place] [address] Notes/Report: D Dimer High Sensitivity 67202 D-DIMER HS REFERENCE RANGE Note: Our assay reports D-Dimer Units (D-DU). The cut-off value for venous thromboembolic (VTE) disease is 230 ng/mL. This value has a very high negative predictive value when the patient has a low to moderate clinical probability of VTE. The upper limit of normal is 243 ng/mL. Hold Green Gel Reviewed date:04/01/2024 12:31:29 PM Interpretation: Performing Lab:[facility], [address] [place] [address] Notes/Report: Hold Green Gel See Note Specimen held untested for 24 hours; Call to request Chemistry testing. CT angio chest PE protocol Reviewed date:04/02/2024 12:30:33 PM Interpretation: Performing Lab: Notes/Report: [address] [address] [address] Scan Report Signed with Caprice Patient: Javi Smith MR#: [id number] 8 : 1985 Acct:[id number] Age/Sex: 39 / M ADM Date: 03/28/24 Loc: [facility] 252-[address]: Delano Rhodes MD Ordering Physician: Delano Rhodes MD Date of Service: 04/01/24 Procedure(s): CT angio chest PE protocol Accession Number(s): [id number] cc: Alfonso Sierra MD; Delano Rhodes MD ADDENDUM Results Acknowledgement: KEARA Daniels (04/01/2024 04:55:00): Results communicated with Dr. Rhodes at 4:37 PM. Addendum Dictated By: Peggy Sun MD Addendum Signed By: <Electronically signed by Peggy Sun MD in OV> 04/02/24 0932 Addendum Cosigned By: DD/ TD/TT: / EXAMINATION: CT abdomen pelvis w IV con, CT angio chest PE protocol CLINICAL INFORMATION: Reason for Exam abdominal distension, ? Obstruction COMPARISON: No pertinent prior studies are available for comparison. TECHNIQUE: Prior to contrast administration, noncontrast localization images were obtained. Subsequently, multidetector volumetric imaging was performed from the thoracic inlet to below the pubic symphysis following the administration of 80 mL Omnipaque 350 intravenous contrast. No contrast reaction reported Sagittal, coronal, and MIP oblique sagittal reformatted images were obtained on the CT workstation, uploaded to PACS, and reviewed. This CT examination was performed using dose optimization techniques as appropriate, variously including the following: * Automated exposure control * Adjustment of mA and/or kV according to patient size (this includes techniques or standardized protocols for targeted exams where dose is matched to indication/reason for exam; i.e. extremities or head) Use of iterative reconstruction technique Total exam dose-length product 654 mGy-cm FINDINGS: QUALITY OF STUDY/CONTRAST BOLUS: Satisfactory. PULMONARY ARTERIES: There are multiple pulmonary emboli seen through the main right and left pulmonary arteries with partial occlusion of the right lower lobe pulmonary artery with saddle embolus THORACIC AORTA: No aneurysm or dissection. LUNG: There are bilateral consolidations more prominent in the dependent portion of the right and left lung. There is patchy, groundglass opacity airspace disease seen in the right lower lobe. Central airways are patent. PLEURA: There is pleural thickening but no pleural effusions seen. MEDIASTINUM: Normal heart size. No pericardial effusion. No hilar or mediastinal lymphadenopathy. No evidence of septal bowing or right heart strain. CHEST WALL/AXILLA: No axillary or internal mammary lymphadenopathy. ABDOMEN/PELVIS: LIVER, GALLBLADDER, BILIARY TREE: The liver is normal in size, shape, and attenuation. No focal hepatic lesion or biliary ductal dilatation is present. The gallbladder is unremarkable with no evidence of radiopaque gallstones, gallbladder wall thickening, or pericholecystic inflammatory changes. PANCREAS: Normal; no mass or surrounding fluid. SPLEEN: Normal size. No focal lesion. ADRENAL GLANDS: Normal; no mass. KIDNEYS AND URETERS: There are a few small bilateral renal cysts but no hydroureteronephrosis or masses. BLADDER: No focal mass or wall thickening seen. No bladder calculi. PELVIC VISCERA: Unremarkable. GASTROINTESTINAL TRACT: Loops of small bowel are diffusely dilated consistent with small bowel obstruction. There is a transition seen in the right lower quadrant, images 46-50 series 3. Loops of colon are distended by large amount of feces. The appendix is not identified. PERITONEAL SPACE: No free air or free fluid identified. ABDOMINAL WALL: There are postsurgical changes with mesh markers are seen in the lower abdomen. LYMPHOVASCULAR STRUCTURES: Lymph nodes: Normal. Vascular: The aorta is normal in caliber. OSSEOUS STRUCTURES: There is diffuse osteopenia with compression deformities of L5-L4 L3 and status post kyphoplasty of T11 and T10 vertebral bodies. There is compression deformity of T8 and 27. CT/CT angio chest PE protocol IMPRESSION: 1. Extensive bilateral pulmonary emboli with saddle embolus in the right and left main and lower lobe pulmonary artery. 2. Bilateral airspace disease. 3. Small bowel obstruction with transition in the right lower quadrant. 4. Constipation. 5. Multiple compression deformities in thoracic and lumbar spine VTE: positive. Dictated By: Peggy Sun MD Signed By: <Electronically signed by Peggy Sun MD in OV> 04/01/24 1547 DD/ 1315 TD/TT: Preconstruction Manager: CT abdomen pelvis w con Reviewed date:04/02/2024 12:30:33 PM Interpretation: Performing Lab: Notes/Report: [address] [address] [address] Scan Report Signed with Caprice Patient: Javi Smith MR#: [id number] 8 : 1985 Acct:[id number] Age/Sex: 39 / M ADM Date: 03/28/24 Loc: .ICU 252-[address]: Delano Rhodes MD Ordering Physician: Delano Rhodes MD Date of Service: 04/01/24 Procedure(s): CT abdomen pelvis w IV con Accession Number(s): [id number] cc: Alfonso Sierra MD; Delano Rhodes MD ADDENDUM Results Acknowledgement: KEARA Daniels (04/01/2024 04:55:00): Results communicated with Dr. Rhodes at 4:37 PM. Addendum Dictated By: Peggy Sun MD Addendum Signed By: <Electronically signed by Peggy Sun MD in OV> 04/02/24 0932 Addendum Cosigned By: DD/ TD/TT: / EXAMINATION: CT abdomen pelvis w IV con, CT angio chest PE protocol CLINICAL INFORMATION: Reason for Exam abdominal distension, ? Obstruction COMPARISON: No pertinent prior studies are available for comparison. TECHNIQUE: Prior to contrast administration, noncontrast localization images were obtained. Subsequently, multidetector volumetric imaging was performed from the thoracic inlet to below the pubic symphysis following the administration of 80 mL Omnipaque 350 intravenous contrast. No contrast reaction reported Sagittal, coronal, and MIP oblique sagittal reformatted images were obtained on the CT workstation, uploaded to PACS, and reviewed. This CT examination was performed using dose optimization techniques as appropriate, variously including the following: * Automated exposure control * Adjustment of mA and/or kV according to patient size (this includes techniques or standardized protocols for targeted exams where dose is matched to indication/reason for exam; i.e. extremities or head) Use of iterative reconstruction technique Total exam dose-length product 654 mGy-cm FINDINGS: QUALITY OF STUDY/CONTRAST BOLUS: Satisfactory. PULMONARY ARTERIES: There are multiple pulmonary emboli seen through the main right and left pulmonary arteries with partial occlusion of the right lower lobe pulmonary artery with saddle embolus THORACIC AORTA: No aneurysm or dissection. LUNG: There are bilateral consolidations more prominent in the dependent portion of the right and left lung. There is patchy, groundglass opacity airspace disease seen in the right lower lobe. Central airways are patent. PLEURA: There is pleural thickening but no pleural effusions seen. MEDIASTINUM: Normal heart size. No pericardial effusion. No hilar or mediastinal lymphadenopathy. No evidence of septal bowing or right heart strain. CHEST WALL/AXILLA: No axillary or internal mammary lymphadenopathy. ABDOMEN/PELVIS: LIVER, GALLBLADDER, BILIARY TREE: The liver is normal in size, shape, and attenuation. No focal hepatic lesion or biliary ductal dilatation is present. The gallbladder is unremarkable with no evidence of radiopaque gallstones, gallbladder wall thickening, or pericholecystic inflammatory changes. PANCREAS: Normal; no mass or surrounding fluid. SPLEEN: Normal size. No focal lesion. ADRENAL GLANDS: Normal; no mass. KIDNEYS AND URETERS: There are a few small bilateral renal cysts but no hydroureteronephrosis or masses. BLADDER: No focal mass or wall thickening seen. No bladder calculi. PELVIC VISCERA: Unremarkable. GASTROINTESTINAL TRACT: Loops of small bowel are diffusely dilated consistent with small bowel obstruction. There is a transition seen in the right lower quadrant, images 46-50 series 3. Loops of colon are distended by large amount of feces. The appendix is not identified. PERITONEAL SPACE: No free air or free fluid identified. ABDOMINAL WALL: There are postsurgical changes with mesh markers are seen in the lower abdomen. LYMPHOVASCULAR STRUCTURES: Lymph nodes: Normal. Vascular: The aorta is normal in caliber. OSSEOUS STRUCTURES: There is diffuse osteopenia with compression deformities of L5-L4 L3 and status post kyphoplasty of T11 and T10 vertebral bodies. There is compression deformity of T8 and 27. CT/CT abdomen pelvis w IV con IMPRESSION: 1. Extensive bilateral pulmonary emboli with saddle embolus in the right and left main and lower lobe pulmonary artery. 2. Bilateral airspace disease. 3. Small bowel obstruction with transition in the right lower quadrant. 4. Constipation. 5. Multiple compression deformities in thoracic and lumbar spine VTE: positive. Dictated By: Peggy Sun MD Signed By: <Electronically signed by Peggy Sun MD in OV> 04/01/24 1547 DD/ 1315 TD/TT: Preconstruction Manager: US venous duplex LE BI Reviewed date:04/01/2024 07:12:33 PM Interpretation: Performing Lab: Notes/Report: [address] [address] Ultrasound Report Signed Patient: Javi Smith MR#: [id number] 8 : 1985 Acct:[id number] Age/Sex: 39 / M ADM Date: 03/28/24 Loc: .ICU 252-[address]: Delano Rhodes MD Ordering Physician: Delano Rhodes MD Date of Service: 04/01/24 Procedure(s): US venous duplex LE BI Accession Number(s): [id number] cc: Alfonso Sierra MD; Delano Rhodes MD EXAMINATION: US VENOUS ULTRASOUND WITH DOPPLER LOWER EXTREMITY, BILATERAL CLINICAL INFORMATION: Pulmonary embolism. COMPARISON: CTA chest dated 04/01/2024. TECHNIQUE: Ultrasound of the deep veins is performed from the hip to the calf with compression sonography and color and pulse Doppler assessment. Spectral analysis with color-flow imaging is performed. FINDINGS: RIGHT: There is normal venous compression and respiratory variation and augmented flow. The visualized common femoral vein, superficial femoral vein, profunda femoral vein, popliteal vein, and the trifurcation region shows no evidence of deep venous thrombosis. There is no significant popliteal fossa cyst. LEFT: Occlusive thrombus extends from the mid aspect of the left femoral vein to the proximal aspect of the posterior tibial vein, inclusive of the popliteal vein. Remaining left lower extremity venous structures are normal in appearance. There is no significant popliteal fossa cyst. US/US venous duplex LE BI IMPRESSION: No DVT demonstrated in the right lower extremity. Occlusive thrombus extends from the mid aspect of the left femoral vein to the proximal aspect of the posterior tibial vein, inclusive of the popliteal vein. This critical result was discussed with Dr Rhodes at 5:34 PM on 04/01/2024 and it was ascertained that the content and urgency of the report was understood at the time of direct communication. Dictated By: Marcus Salgado Jr, DO Signed By: <Electronically signed by Marcus Salgado Jr, DO in OV> 04/01/24 1735 DD/ 1701 TD/TT: Preconstruction Manager: NABIL HINTON chest 1V Reviewed date:04/01/2024 12:34:53 PM Interpretation: Performing Lab: Notes/Report: [address] [address] XRay Report Signed Patient: Javi Smith MR#: [id number] 8 : 1985 Acct:[id number] Age/Sex: 39 / M ADM Date: 03/28/24 Loc: [facility] [facility] [address]: Delano Rhodes MD Ordering Physician: Jose Thomas MD Date of Service: 04/01/24 Procedure(s): XR chest 1V Accession Number(s): [id number] cc: Jose Thomas MD; Alfonso Sierra MD EXAMINATION: XR CHEST CLINICAL INFORMATION: Hypoxia COMPARISON: 03/30/2024 TECHNIQUE: Frontal view of the chest was obtained. FINDINGS: There is low lung volume bilaterally unchanged since previous study with by basilar atelectasis and left lower lobe airspace disease with air bronchogram. Cardiomediastinal silhouette is unremarkable XR/XR chest 1V IMPRESSION: Bibasilar airspace disease. Low lung volume. Dictated By: Peggy Sun MD Signed By: <Electronically signed by Peggy Sun MD in OV> 04/01/24 1123 DD/ 0928 TD/TT: Preconstruction Manager: PTT Heparin Drip Reviewed date:04/02/2024 12:30:33 PM Interpretation: Performing Lab:[facility], [address] [place] [address] Notes/Report: PTT Heparin Drip 39.4 53-77.9 SEC For information regarding the monitoring of heparin therapy, please refer to Pharmacy. Complete Blood Count Auto Di ff Reviewed date:04/02/2024 12:30:33 PM Interpretation: Performing Lab:[facility], [address] [place] [address] Notes/Report: White Blood Count 10.2 4.8-10.8 X10*3/uL Red Blood Count 4.73 4.60-5.80 X10*6/uL Hemoglobin 14.4 14.0-18.0 g/dl Hematocrit 43.1 42.0-52.0 % Mean Corpuscular Volume 91.1 80.0-98.0 fL Mean Corpuscular Hemoglobin 30.4 27.0-33.0 pg Mean Corpuscular HGB Conc 33.4 31.0-36.0 g/dl Red Cell Distribution Width 13.2 11.0-16.0 % Platelet Count 187 160-400 X10*3/uL Mean Platelet Volume 10.3 9.4-12.4 fL Neutrophils Percent Auto 82.1 45-73 % Imm Gran Pct Auto 0.4 0.0-0.4 % Lymphocytes Percent Auto 6.5 20-40 % Monocytes Percent Auto 10.8 2-11 % Eosinophils Percent Auto 0.1 0-4 % Basophils Percent Auto 0.1 0-2 % NRBC Pct Auto 0.0 0.0-0.2 /100WBC Neutrophils Absolute Auto 8.4 2.0-8.3 x10*3/u L Imm Gran Abs Auto 0.04 0.00-0.03 X10*3/uL Lymphocytes Absolute Auto 0.7 1.2-4.9 X10*3/u L Monocytes Absolute Auto 1.1 0.1-1.2 X10*3/uL Eosinophils Absolute Auto 0.0 0.0-0.4 X10*3/u L Basophils Absolute Auto 0.0 0.0-0.2 X10*3/uL NRBC Abs Auto 0.000 0.0-0.012 X10*3/uL Prothrombin Time INR Reviewed date:04/02/2024 12:30:33 PM Interpretation: Performing Lab:[facility], [address] [place] [phone] Notes/Report: Prothrombin Time 17.1 11.1-13.3 SEC INTERNATIONAL NORM RATIO 1.4 0.9-1.1 INTERNATIONAL NORMALIZED RATIO (INR) REFERENCE RANGES Reference Range For patients not on anticoagulant therapy: 0.9 - 1.1 INR ranges for oral anticoagulant therapy: For prevention and treatment of venous thrombosis and pulmonary embolism: 2.0 - 3.0 For acute myocardial infarction with aspirin therapy: 2.0 - 3.0 For acute myocardial infarction without aspirin therapy: 3.0 - 4.0 For patients with mechanical prosthetic heart valves: 2.5 - 3.5 PTT Heparin Drip Reviewed date:04/02/2024 12:30:33 PM Interpretation: Performing Lab:[facility], [address] [place] [address] Notes/Report: PTT Heparin Drip 42.5 53-77.9 SEC For information regarding the monitoring of heparin therapy, please refer to Pharmacy. Comprehensive Met. Panel Reviewed date:04/02/2024 12:30:33 PM Interpretation: Performing Lab:[facility], [address] [place] [address] Notes/Report: Sodium 150 135-145 mmol/L Potassium 3.7 3.3-5.1 mmol/L Chloride 113 96-108 mmol/L Carbon Dioxide 25 22-29 mmol/L Anion Gap 16 12-20 Blood Urea Nitrogen 35 9-16 mg/dL Creatinine 0.78 0.5-1.4 mg/dL Creatinine Clr Calc Pharmacy 108.5 eGFR (calculated from the MDRD study equation) and eCrCl (calculated from the Cockcroft-Gault equation) are based on different parameters and may not yield comparable results. If eCrCl result is absurd, please check patient's height/weight. Estimated Glomerular Filt Rate > 60 NOTE: For -Vincentian individuals, multiply the result by 1.210. Chronic Kidney Disease: Estimated GFR < 60 mL/min/1.73m2 Severe Kidney Disease: Estimated GFR < 15 mL/min/1.73m2 Glucose Random 97 60-115 mg/dL Calcium 9.2 8.4-10.2 mg/dL Bilirubin Total 1.6 0.0-1.0 mg/dL Aspartate Amino Transferase 75 5-37 U/L Alanine Aminotransferase 51 0-40 U/L Total Protein 6.4 6.5-8.0 g/dL Albumin Level 3.4 3.5-5.0 g/dL Alkaline Phosphatase 199 39-117 U/L Basic Metabolic Panel Reviewed date:04/04/2024 06:08:27 PM Interpretation: Performing Lab:[facility], [address] [place] [phone] Notes/Report: Sodium 145 135-145 mmol/L Potassium 3.4 3.3-5.1 mmol/L Slight Hemoly sis Chloride 108 96-108 mmol/L Carbon Dioxide 25 22-29 mmol/L Anion Gap 15 12-20 Blood Urea Nitrogen 21 9-16 mg/dL Creatinine 0.65 0.5-1.4 mg/dL Creatinine Clr Calc Pharmacy 130.2 eGFR (calculated from the MDRD study equation) and eCrCl (calculated from the Cockcroft-Gault equation) are based on different parameters and may not yield comparable results. If eCrCl result is absurd, please check patient's height/weight. Estimated Glomerular Filt Rate > 60 NOTE: For -Vincentian individuals, multiply the result by 1.210. Chronic Kidney Disease: Estimated GFR < 60 mL/min/1.73m2 Severe Kidney Disease: Estimated GFR < 15 mL/min/1.73m2 Glucose Random 118 60-115 mg/dL Calcium 8.6 8.4-10.2 mg/dL Phosphorus Reviewed date:04/02/2024 12:30:33 PM Interpretation: Performing Lab:[facility], [address] [place] [address] Notes/Report: Phosphorus 3.1 2.7-4.5 mg/dL Magnesium Reviewed date:04/02/2024 12:30:33 PM Interpretation: Performing Lab:[address] [address] Notes/Report: Magnesium 2.2 1.6-2.6 mg/dL Ammonia Reviewed date:04/02/2024 12:30:33 PM Interpretation: Performing Lab:[facility], [address] [place] [address] Notes/Report: Ammonia 47 13-55 umol/L Slight Hemolysi s Venous Blood Gases - POC Reviewed date:04/02/2024 12:30:33 PM Interpretation: Performing Lab:[address] [address] Notes/Report: VBG pH 7.50 7.32-7.43 METER #: [id number] additional_comment: Nabil louiebb henric VBG pCO2 31 METER #: [id number] additional_comment: Nabil louiebb henric VBG pO2 88 METER #: [id number] additional_comment: Nabil louiebb henric VBG Base Excess 2.3 METER #: [id number] additional_comment: Nabil louiebb henric VBG HCO3 24 22-26 mmol/L METER #: [id number] additional_comment: Nabil louiebb henric VBG O2 % Saturation 98.0 METER #: [id number] additional_comment: Nabil robbins henric XR KUB Reviewed date:04/04/2024 06:08:27 PM Interpretation: Performing Lab: Notes/Report: [address] [place] [address] XRay Report Signed Patient: Javi Smith MR#: [id number] 8 : 1985 Acct:[id number] Age/Sex: 39 / M ADM Date: 03/28/24 Loc: [facility] 477-[address]: Jose Thomas MD Ordering Physician: Casimiro Bradley MD Date of Service: 04/02/24 Procedure(s): XR KUB Accession Number(s): [id number] cc: Alfonso Sierra MD; Casimiro Bradley MD EXAMINATION: XR ABDOMEN KUB CLINICAL INDICATION: Abdominal distention COMPARISON: Abdomen radiograph March 31, 2024. The scan abdomen pelvis April 01, 2024 TECHNIQUE: AP view of the abdomen. FINDINGS: There is still a large volume of gas in the colon but the volume of gas has decreased since prior CAT scan April 01, 2024. Bowel pattern is nonobstructive. No significant formed stool now evident in the abdomen. Surgical coils right lung base XR/XR KUB IMPRESSION: Nonobstructive bowel pattern. Decreased volume of gas in the colon since prior CAT scan April 01, 2024. Dictated By: Konstantin Degroot MD Signed By: <Electronically signed by Konstantin Degroot MD in OV> 04/02/24 1515 DD/ 0738 TD/TT: Preconstruction Manager: RHIANNA PTT Heparin Drip Reviewed date:04/02/2024 12:30:33 PM Interpretation: Performing Lab:[facility], [address] [place] [address] Notes/Report: PTT Heparin Drip 54.6 53-77.9 SEC For information regarding the monitoring of heparin therapy, please refer to Pharmacy. PTT Heparin Drip Reviewed date:04/04/2024 06:08:27 PM Interpretation: Performing Lab:[facility], [address] [place] [address] Notes/Report: Duplicate order. See CG28 PTT Heparin Drip 56.0 53-77.9 SEC For information regarding the monitoring of heparin therapy, please refer to Pharmacy. Complete Blood Count no Diff Reviewed date:04/04/2024 06:08:26 PM Interpretation: Performing Lab:[facility], [address] [place] [address] Notes/Report: White Blood Count 9.0 4.8-10.8 X10*3/uL Red Blood Count 4.59 4.60-5.80 X10*6/uL Hemoglobin 14.2 14.0-18.0 g/dl Hematocrit 42.2 42.0-52.0 % Mean Corpuscular Volume 91.9 80.0-98.0 fL Mean Corpuscular Hemoglobin 30.9 27.0-33.0 pg Mean Corpuscular HGB Conc 33.6 31.0-36.0 g/dl Red Cell Distribution Width 13.3 11.0-16.0 % Platelet Count 165 160-400 X10*3/uL Mean Platelet Volume 10.5 9.4-12.4 fL NRBC Pct Auto 0.0 0.0-0.2 /100WBC NRBC Abs Auto 0.000 0.0-0.012 X10*3/uL Complete Blood Count Auto Di ff Reviewed date:04/04/2024 06:08:26 PM Interpretation: Performing Lab:[facility], [address] [place] [address] Notes/Report: White Blood Count 8.4 4.8-10.8 X10*3/uL Red Blood Count 4.26 4.60-5.80 X10*6/uL Hemoglobin 13.2 14.0-18.0 g/dl Hematocrit 39.3 42.0-52.0 % Mean Corpuscular Volume 92.3 80.0-98.0 fL Mean Corpuscular Hemoglobin 31.0 27.0-33.0 pg Mean Corpuscular HGB Conc 33.6 31.0-36.0 g/dl Red Cell Distribution Width 13.2 11.0-16.0 % Platelet Count 148 160-400 X10*3/uL Mean Platelet Volume 10.5 9.4-12.4 fL Neutrophils Percent Auto 72.1 45-73 % Imm Gran Pct Auto 0.4 0.0-0.4 % Lymphocytes Percent Auto 15.8 20-40 % Monocytes Percent Auto 9.5 2-11 % Eosinophils Percent Auto 2.0 0-4 % Basophils Percent Auto 0.2 0-2 % NRBC Pct Auto 0.0 0.0-0.2 /100WBC Neutrophils Absolute Auto 6.1 2.0-8.3 x10*3/u L Imm Gran Abs Auto 0.03 0.00-0.03 X10*3/uL Lymphocytes Absolute Auto 1.3 1.2-4.9 X10*3/u L Monocytes Absolute Auto 0.8 0.1-1.2 X10*3/uL Eosinophils Absolute Auto 0.2 0.0-0.4 X10*3/u L Basophils Absolute Auto 0.0 0.0-0.2 X10*3/uL NRBC Abs Auto 0.000 0.0-0.012 X10*3/uL PTT Heparin Drip Reviewed date:04/04/2024 06:08:26 PM Interpretation: Performing Lab:[facility], [address] [place] [address] Notes/Report: PTT Heparin Drip 55.6 53-77.9 SEC For information regarding the monitoring of heparin therapy, please refer to Pharmacy. Comprehensive Met. Panel Reviewed date:04/04/2024 06:08:26 PM Interpretation: Performing Lab:[facility], [address] [place] [address] Notes/Report: Sodium 142 135-145 mmol/L Potassium 3.4 3.3-5.1 mmol/L Chloride 108 96-108 mmol/L Carbon Dioxide 27 22-29 mmol/L Anion Gap 10 12-20 Blood Urea Nitrogen 17 9-16 mg/dL Creatinine 0.61 0.5-1.4 mg/dL Creatinine Clr Calc Pharmacy 138.8 eGFR (calculated from the MDRD study equation) and eCrCl (calculated from the Cockcroft-Gault equation) are based on different parameters and may not yield comparable results. If eCrCl result is absurd, please check patient's height/weight. Estimated Glomerular Filt Rate > 60 NOTE: For -Vincentian individuals, multiply the result by 1.210. Chronic Kidney Disease: Estimated GFR < 60 mL/min/1.73m2 Severe Kidney Disease: Estimated GFR < 15 mL/min/1.73m2 Glucose Random 102 60-115 mg/dL Calcium 8.9 8.4-10.2 mg/dL Bilirubin Total 1.3 0.0-1.0 mg/dL Aspartate Amino Transferase 62 5-37 U/L Alanine Aminotransferase 40 0-40 U/L Total Protein 5.9 6.5-8.0 g/dL Albumin Level 3.5 3.5-5.0 g/dL Alkaline Phosphatase 149 39-117 U/L Basic Metabolic Panel Reviewed date:04/04/2024 06:08:26 PM Interpretation: Performing Lab:[address] [address] Notes/Report: Sodium 141 135-145 mmol/L Potassium 3.1 3.3-5.1 mmol/L Chloride 107 96-108 mmol/L Carbon Dioxide 25 22-29 mmol/L Anion Gap 12 12-20 Blood Urea Nitrogen 13 9-16 mg/dL Creatinine 0.61 0.5-1.4 mg/dL Creatinine Clr Calc Pharmacy 138.8 eGFR (calculated from the MDRD study equation) and eCrCl (calculated from the Cockcroft-Gault equation) are based on different parameters and may not yield comparable results. If eCrCl result is absurd, please check patient's height/weight. Estimated Glomerular Filt Rate > 60 NOTE: For -Vincentian individuals, multiply the result by 1.210. Chronic Kidney Disease: Estimated GFR < 60 mL/min/1.73m2 Severe Kidney Disease: Estimated GFR < 15 mL/min/1.73m2 Glucose Random 102 60-115 mg/dL Calcium 9.0 8.4-10.2 mg/dL Phosphorus Reviewed date:04/04/2024 06:08:27 PM Interpretation: Performing Lab:[address] [address] Notes/Report: Phosphorus 2.1 2.7-4.5 mg/dL Magnesium Reviewed date:04/04/2024 06:08:27 PM Interpretation: Performing Lab:[address] [address] Notes/Report: Magnesium 2.0 1.6-2.6 mg/dL Venous Blood Gases - POC Reviewed date:04/04/2024 06:08:27 PM Interpretation: Performing Lab:[address] [place] [address] Notes/Report: VBG pH 7.48 7.32-7.43 METER #: [id number] additional_comment: CB RIVEMAR VBG pCO2 38 METER #: [id number] additional_comment: CB RIVEMAR VBG pO2 59 METER #: [id number] additional_comment: CB RIVEMAR VBG Base Excess 5.0 METER #: [id number] additional_comment: CB RIVEMAR VBG HCO3 28 22-26 mmol/L METER #: [id number] additional_comment: CB RIVEMAR VBG O2 % Saturation 90.0 METER #: [id number] additional_comment: CB RIVEMAR PTT Heparin Drip Reviewed date:04/04/2024 06:08:26 PM Interpretation: Performing Lab:[facility], [address] [place] [address] Notes/Report: PTT Heparin Drip 66.7 53-77.9 SEC For information regarding the monitoring of heparin therapy, please refer to Pharmacy. Complete Blood Count no Diff Reviewed date:04/05/2024 12:26:31 PM Interpretation: Performing Lab:[facility], [address] [place] [address] Notes/Report: White Blood Count 5.9 4.8-10.8 X10*3/uL Red Blood Count 4.42 4.60-5.80 X10*6/uL Hemoglobin 13.5 14.0-18.0 g/dl Hematocrit 39.0 42.0-52.0 % Mean Corpuscular Volume 88.2 80.0-98.0 fL Mean Corpuscular Hemoglobin 30.5 27.0-33.0 pg Mean Corpuscular HGB Conc 34.6 31.0-36.0 g/dl Red Cell Distribution Width 13.2 11.0-16.0 % Platelet Count 193 160-400 X10*3/uL Mean Platelet Volume 10.7 9.4-12.4 fL NRBC Pct Auto 0.0 0.0-0.2 /100WBC NRBC Abs Auto 0.000 0.0-0.012 X10*3/uL PTT Heparin Drip Reviewed date:04/05/2024 10:43:20 AM Interpretation: Performing Lab:[facility], [address] [place] [address] Notes/Report: PTT Heparin Drip 70.0 53-77.9 SEC For information regarding the monitoring of heparin therapy, please refer to Pharmacy. Basic Metabolic Panel Reviewed date:04/05/2024 12:24:01 PM Interpretation: Performing Lab:[facility], [address] [place] [address] Notes/Report: Sodium 139 135-145 mmol/L Potassium 3.5 3.3-5.1 mmol/L Chloride 107 96-108 mmol/L Carbon Dioxide 24 22-29 mmol/L Anion Gap 12 12-20 Blood Urea Nitrogen 12 9-16 mg/dL Creatinine 0.64 0.5-1.4 mg/dL Creatinine Clr Calc Pharmacy 132.3 eGFR (calculated from the MDRD study equation) and eCrCl (calculated from the Cockcroft-Gault equation) are based on different parameters and may not yield comparable results. If eCrCl result is absurd, please check patient's height/weight. Estimated Glomerular Filt Rate > 60 NOTE: For -Vincentian individuals, multiply the result by 1.210. Chronic Kidney Disease: Estimated GFR < 60 mL/min/1.73m2 Severe Kidney Disease: Estimated GFR < 15 mL/min/1.73m2 Glucose Random 99 60-115 mg/dL Calcium 9.1 8.4-10.2 mg/dL B Type Natriuretic Peptide Reviewed date:04/05/2024 10:49:37 AM Interpretation: Performing Lab:[facility], [address] [place] [address] Notes/Report: B Type Natriuretic Peptide 115 <100 pg/mL For those patients who are being treated with Natrecor (nesiritide, recombinant BNP), BNP testing should be performed at least two hours post treatment in order to ensure that only endogenous levels of BNP are detected. Complete Blood Count no Diff Reviewed date:04/06/2024 12:02:17 PM Interpretation: Performing Lab:[facility], [address] [place] [address] Notes/Report: White Blood Count 9.2 4.8-10.8 X10*3/uL Red Blood Count 4.44 4.60-5.80 X10*6/uL Hemoglobin 13.7 14.0-18.0 g/dl Hematocrit 40.1 42.0-52.0 % Mean Corpuscular Volume 90.3 80.0-98.0 fL Mean Corpuscular Hemoglobin 30.9 27.0-33.0 pg Mean Corpuscular HGB Conc 34.2 31.0-36.0 g/dl Red Cell Distribution Width 13.5 11.0-16.0 % Platelet Count 209 160-400 X10*3/uL Mean Platelet Volume 11.4 9.4-12.4 fL NRBC Pct Auto 0.0 0.0-0.2 /100WBC NRBC Abs Auto 0.000 0.0-0.012 X10*3/uL Basic Metabolic Panel Reviewed date:04/06/2024 12:01:45 PM Interpretation: Performing Lab:[address] [address] Notes/Report: Sodium 140 135-145 mmol/L Potassium 3.9 3.3-5.1 mmol/L Chloride 107 96-108 mmol/L Carbon Dioxide 24 22-29 mmol/L Anion Gap 13 12-20 Blood Urea Nitrogen 14 9-16 mg/dL Creatinine 0.67 0.5-1.4 mg/dL Creatinine Clr Calc Pharmacy 126.4 eGFR (calculated from the MDRD study equation) and eCrCl (calculated from the Cockcroft-Gault equation) are based on different parameters and may not yield comparable results. If eCrCl result is absurd, please check patient's height/weight. Estimated Glomerular Filt Rate > 60 NOTE: For -Vincentian individuals, multiply the result by 1.210. Chronic Kidney Disease: Estimated GFR < 60 mL/min/1.73m2 Severe Kidney Disease: Estimated GFR < 15 mL/min/1.73m2 Glucose Random 102 60-115 mg/dL Calcium 9.2 8.4-10.2 mg/dL Complete Blood Count Auto Di ff Reviewed date:04/28/2024 07:56:49 PM Interpretation: Performing Lab:[facility], [address] [place] [address] Notes/Report: White Blood Count 12.5 4.8-10.8 X10*3/uL Red Blood Count 4.67 4.60-5.80 X10*6/uL Hemoglobin 14.8 14.0-18.0 g/dl Hematocrit 42.4 42.0-52.0 % Mean Corpuscular Volume 90.8 80.0-98.0 fL Mean Corpuscular Hemoglobin 31.7 27.0-33.0 pg Mean Corpuscular HGB Conc 34.9 31.0-36.0 g/dl Red Cell Distribution Width 13.4 11.0-16.0 % Platelet Count 274 160-400 X10*3/uL Mean Platelet Volume 10.0 9.4-12.4 fL Neutrophils Percent Auto 84.2 45-73 % Imm Gran Pct Auto 0.3 0.0-0.4 % Lymphocytes Percent Auto 7.1 20-40 % Monocytes Percent Auto 7.9 2-11 % Eosinophils Percent Auto 0.3 0-4 % Basophils Percent Auto 0.2 0-2 % NRBC Pct Auto 0.0 0.0-0.2 /100WBC Neutrophils Absolute Auto 10.5 2.0-8.3 x10*3/u L Imm Gran Abs Auto 0.04 0.00-0.03 X10*3/uL Lymphocytes Absolute Auto 0.9 1.2-4.9 X10*3/u L Monocytes Absolute Auto 1.0 0.1-1.2 X10*3/uL Eosinophils Absolute Auto 0.0 0.0-0.4 X10*3/u L Basophils Absolute Auto 0.0 0.0-0.2 X10*3/uL NRBC Abs Auto 0.000 0.0-0.012 X10*3/uL Basic Metabolic Panel Reviewed date:04/28/2024 07:56:23 PM Interpretation: Performing Lab:[facility], [address] [place] [address] Notes/Report: Sodium 143 135-145 mmol/L Potassium 4.7 3.3-5.1 mmol/L Chloride 105 96-108 mmol/L Carbon Dioxide 31 22-29 mmol/L Anion Gap 12 12-20 Blood Urea Nitrogen 12 9-16 mg/dL Creatinine 0.81 0.5-1.4 mg/dL Creatinine Clr Calc Pharmacy 96.4 eGFR (calculated from the MDRD study equation) and eCrCl (calculated from the Cockcroft-Gault equation) are based on different parameters and may not yield comparable results. If eCrCl result is absurd, please check patient's height/weight. Estimated Glomerular Filt Rate > 60 NOTE: For -Vincentian individuals, multiply the result by 1.210. Chronic Kidney Disease: Estimated GFR < 60 mL/min/1.73m2 Severe Kidney Disease: Estimated GFR < 15 mL/min/1.73m2 Glucose Random 130 60-115 mg/dL Calcium 10.6 8.4-10.2 mg/dL Glucose, Whole Blood Reviewed date:04/28/2024 07:56:58 PM Interpretation: Performing Lab:[facility], [address] [place] [address] Notes/Report: Glucose, Whole Blood 118 60-115 mg/dL METER # : [id number] XR chest 2V Reviewed date:04/29/2024 07:04:22 AM Interpretation: Performing Lab: Notes/Report: [address] [address] XRay Report Signed Patient: Javi Smith MR#: [id number] 8 : 1985 Acct:[id number] Age/Sex: 39 / M ADM Date: 04/28/24 Loc: .ED Attending Dr: Ordering Physician: Madhav Meade MD Date of Service: 04/28/24 Procedure(s): XR chest 2V Accession Number(s): [id number] cc: Alfonso Sierra MD; Madhav Meade MD EXAMINATION: XR CHEST CLINICAL INFORMATION: Back pain COMPARISON: 04/01/2024 TECHNIQUE: 2 views of the chest were obtained. FINDINGS: Poor inspiratory effort. There are minor infiltrates at the lung bases which could reflect a pneumonia or be secondary to this point perinephric. Follow-up therefore advised. Upper lungs are clear. Heart size normal with normal caliber pulmonary vessels. Post vertebroplasty changes seen in the mid to lower thoracic spine. XR/XR chest 2V IMPRESSION: Query early bibasilar infiltrates. Recommend short-term follow-up. Dictated By: Elvis Ortiz MD Signed By: <Electronically signed by Elvis Ortiz MD in OV> 04/28/24 1101 DD/ 1035 TD/TT: Preconstruction Manager: XR thoracic spine 2V Reviewed date:04/28/2024 08:00:24 PM Interpretation: Performing Lab: Notes/Report: [address] [address] XRay Report Signed Patient: Javi Smith MR#: [id number] 8 : 1985 Acct:[id number] Age/Sex: 39 / M ADM Date: 04/28/24 Loc: HO.ED Attending Dr: Ordering Physician: Madhav Meade MD Date of Service: 04/28/24 Procedure(s): XR thoracic spine 2V Accession Number(s): [id number] cc: Alfonso Sierra MD; Madhav Meade MD EXAMINATION: XR THORACOLUMBAR SPINE CLINICAL INFORMATION: Back pain COMPARISON: CT 03/28/2024 TECHNIQUE: AP and lateral radiographs of the thoracic spine FINDINGS: Redemonstration of the T10 and T11 kyphoplasty is which appears similar. There is approximately 30-40% loss of vertebral body height of T8 (and to a lesser extent the T7 vertebral body) which has slightly progressed since the prior study. XR/XR thoracic spine 2V IMPRESSION: Slight progression of the compression deformity of T8 and to a lesser extent T7 since 03/28/2024. This could be better assessed with a thoracic spine CT or MRI. Dictated By: Fritz Redd MD Signed By: <Electronically signed by Fritz Redd MD in OV> 04/28/24 1129 DD/ 1035 TD/TT: Preconstruction Manager: DM XR lumbar spine 2-3V Reviewed date:04/28/2024 07:58:00 PM Interpretation: Performing Lab: Notes/Report: [address] [address] XRay Report Signed Patient: Javi Smith MR#: [id number] 8 : 1985 Acct:[id number] Age/Sex: 39 / M ADM Date: 04/28/24 Loc: .ED Attending Dr: Ordering Physician: Madhav Meade MD Date of Service: 04/28/24 Procedure(s): XR lumbar spine 2-3V Accession Number(s): [id number] cc: Alfonso Sierra MD; Madhav Meade MD EXAMINATION: XR LUMBOSACRAL SPINE CLINICAL INFORMATION: Lumbar pain. COMPARISON: 03/28/2024 CT and radiographs of the lumbar spine. TECHNIQUE: 3 views of the lumbosacral spine. FINDINGS: Postsurgical changes redemonstrated from hernia mesh in the right lower quadrant. Prominent, nonspecific distended air-filled loops of bowel redemonstrated. Evidence of vertebral augmentation in the partially imaged inferior aspect of the T11 vertebral body. Interval increased superior and inferior endplate concavities at the L2 vertebral body. Redemonstration of superior endplate concavity at the L4 vertebral body. Redemonstration of superior and inferior endplate concavities at the L5 vertebral body. Facet arthritis in the lower lumbar spine. XR/XR lumbar spine 2-3V IMPRESSION: 1. Interval increased superior and inferior endplate concavities at the L2 vertebral body. 2. Redemonstration of superior endplate concavity at the L4 vertebral body. Redemonstration of superior and inferior endplate concavities at the L5 vertebral body. 3. Facet arthritis in the lower lumbar spine. This study was presented today 04/28/2024 for interpretation. Stat results provided at this time as requested by referring provider. Dictated By: Gail Baca MD Signed By: <Electronically signed by Gail Baca MD in OV> 04/28/24 1258 DD/ 1223 TD/TT: Preconstruction Manager: XR shoulder LT min 2V Reviewed date:04/28/2024 07:58:30 PM Interpretation: Performing Lab: Notes/Report: [address] [address] XRay Report Signed Patient: Javi Smith MR#: [id number] 8 : 1985 Acct:[id number] Age/Sex: 39 / M ADM Date: 04/28/24 Loc: HO.ED Attending Dr: Ordering Physician: Madhav Meade MD Date of Service: 04/28/24 Procedure(s): XR shoulder LT min 2V Accession Number(s): [id number] cc: Alfonso Sierra MD; Madhav Meade MD EXAMINATION: XR SHOULDER, LEFT CLINICAL INFORMATION: Pain. History of fracture. COMPARISON: CT 04/01/2024 TECHNIQUE: Three views of the left shoulder. FINDINGS: Incomplete healing of the scapular body/neck fracture with posterior displacement and callus formation. The glenohumeral and acromioclavicular joints are unremarkable. XR/XR shoulder LT min 2V IMPRESSION: Incomplete healing of the scapular body/neck fracture. Dictated By: Fritz Redd MD Signed By: <Electronically signed by Fritz Redd MD in OV> 04/28/24 1123 DD/ 1035 TD/TT: Preconstruction Manager: JANICE Goncalves. Panel Reviewed date:05/01/2024 06:25:16 PM Interpretation: Performing Lab:[address] [address] Notes/Report: Sodium 142 135-145 mmol/L Potassium 3.7 3.3-5.1 mmol/L Chloride 103 96-108 mmol/L Carbon Dioxide 29 22-29 mmol/L Anion Gap 14 12-20 Blood Urea Nitrogen 13 9-16 mg/dL Creatinine 0.69 0.5-1.4 mg/dL Estimated Glomerular Filt Rate > 60 NOTE: For -Vincentian individuals, multiply the result by 1.210. Chronic Kidney Disease: Estimated GFR < 60 mL/min/1.73m2 Severe Kidney Disease: Estimated GFR < 15 mL/min/1.73m2 Glucose Random 75 60-115 mg/dL Calcium 10.0 8.4-10.2 mg/dL Bilirubin Total 1.4 0.0-1.0 mg/dL Aspartate Amino Transferase 83 5-37 U/L Alanine Aminotransferase 133 0-40 U/L Total Protein 7.5 6.5-8.0 g/dL Albumin Level 4.1 3.5-5.0 g/dL Alkaline Phosphatase 231 39-117 U/L Calcium, Ionized Reviewed date:05/03/2024 12:34:14 PM Interpretation: Performing Lab:[address] [address] Notes/Report: Calcium, Ionized 5.1 4.7-5.5 mg/dL THIS TEST WAS PERFORMED AT: [facility] [address] [address] RENETTA ARIAS MD Phosphorus Reviewed date:05/01/2024 06:23:06 PM Interpretation: Performing Lab:[facility], [address] [place] [address] Notes/Report: Phosphorus 3.7 2.7-4.5 mg/dL Vitamin D 25-OH Total Reviewed date:05/01/2024 06:24:24 PM Interpretation: Performing Lab:[address] [address] Notes/Report: Vitamin D 25-OH Total 38.7 >30 ng/mL Health Based Reference Values* < 20 ng/mL Deficient 20-30 ng/mL Insufficient > 30 ng/mL Sufficient *Edith VALLEJO. N Engl J Med. 2007;357:266-280 Care must be taken in interpreting Vitamin D results from different laboratories and methodologies. Published data demonstrated that results from patients undergoing hemodialysis may show a negative bias when tested with various automated 25-OH vitamin D assays when compared to LC-MS/MS. When testing samples from patients whose predominant form of Vitamin D is Vitamin D2, such as patients receiving Vitamin D2 supplementation, results that are subtherapeutic should be confirmed with another method such as LC-MS/MS. TSH reflex Free T4 Reviewed date:05/01/2024 06:22:28 PM Interpretation: Performing Lab:[facility], [address] [place] [address] Notes/Report: TSH reflex Free T4 0.94 0.32-4.0 uIU/mL Parathyroid Hormone Intact Reviewed date:05/01/2024 06:24:55 PM Interpretation: Performing Lab:[facility], [address] [place] [address] Notes/Report: Parathyroid Hormone Intact 26.3 8.7-77.1 pg/mL Calcium Reviewed date:05/04/2024 12:33:52 PM Interpretation: Performing Lab:[facility], [address] [place] [address] Notes/Report: Calcium 10.3 8.4-10.2 mg/dL Albumin Level Reviewed date:05/04/2024 12:33:59 PM Interpretation: Performing Lab:[facility], [address] [place] [address] Notes/Report: Albumin Level 4.3 3.5-5.0 g/dL Testosterone, Free/Total Reviewed date:05/10/2024 12:24:45 PM Interpretation: Performing Lab:[facility], [address] [place] [address] Notes/Report: Testosterone, Total 653 420-3008 ng/dL For additional information, please refer to http://education.SensGard/faq/ TotalTestosteroneMS [email or web address] (This link is being provided for informational/ educational purposes only.) This test was developed and its analytical performance characteristics have been determined by [facility] [place], [place]. It has not been cleared or approved by the U.S. Food and Drug Administration. This assay has been validated pursuant to the CLIA regulations and is used for clinical purposes. Testosterone, Free 57.3 35.0-155.0 pg/mL This test was developed and its analytical performance characteristics have been determined by [facility] [place], [place]. It has not been cleared or approved by the U.S. Food and Drug Administration. This assay has been validated pursuant to the CLIA regulations and is used for clinical purposes. THIS TEST WAS PERFORMED AT: [facility] [facility] DYAN TUCKER MD,PHD Alkaline Phosphatase Bone Reviewed date:05/10/2024 12:24:07 PM Interpretation: Performing Lab:[facility], [address] [place] [address] Notes/Report: Alkaline Phosphatase Bone 30.9 7.7-21.3 mcg/L THIS TEST WAS PERFORMED AT: [facility] [id number] [place] [address] DYAN TUCKER MD,PHD Collagen Crosslinks NTX Reviewed date:05/09/2024 02:16:17 PM Interpretation: Performing Lab:[facility], [address] [place] [address] Notes/Report: N-Telopeptide 144 9-60 Result Units: nM BCE/mM creat Units of Measure: nM BCE/mM creat NTXCreaRU 206 20-320 mg/dL THIS TEST WAS PERFORMED AT: [facility]/[address] DYAN TUCKER MD,PHD Collagen Type I C-Telopeptid e Reviewed date:05/10/2024 12:23:51 PM Interpretation: Performing Lab:[facility], [address] [place] [address] Notes/Report: Collagen Type I C-Telopeptide 958 70-780 pg/mL No reference range is provided for postmenopausal women because of the increased rate of bone turnover post-menopause. It is recommended that results for postmenopausal women be compared to the premenopausal reference range as this will give a better indication of their rate of bone loss. For additional information, please refer to https://[employer].AxialMED/faq /PGI790 (This link is being provided for informational/ educational purposes only.) THIS TEST WAS PERFORMED AT: [facility] [id number] [place] [address] DYAN TUCKER MD,PHD XR chest 2V Reviewed date:06/03/2024 08:57:08 AM Interpretation: Performing Lab: Notes/Report: [address] [address] XRay Report Signed Patient: Javi Smith MR#: [id number] 8 : 1985 Acct:[id number] Age/Sex: 39 / M ADM Date: 05/11/24 Loc: LEEANNA Attending Dr: Alfonso Sierra MD Ordering Physician: Alfonso Sierra MD Date of Service: 05/11/24 Procedure(s): XR chest 2V Accession Number(s): [id number] cc: Alfonso Sierra MD EXAMINATION: XR CHEST CLINICAL INFORMATION: Back pain since December per patient. Back surgery in February per patient. COMPARISON: 04/28/2024. TECHNIQUE: 2 views of the chest were obtained. FINDINGS: There is no gross pneumothorax. Lung volumes are low. Heart size is normal. Redemonstration bibasilar opacities, predominantly left base. Redemonstration of vertebroplasty changes in the civ-qn-dpdck thoracic spine. Small left pleural effusion. Degenerative changes in the thoracic spine. XR/XR chest 2V IMPRESSION: 1. Redemonstration of bibasilar opacities, predominantly left base, with some interval improvement. Small left pleural effusion. 2. Recommend follow-up to resolution. Dictated By: Gail Baca MD Signed By: <Electronically signed by Gail Baca MD in OV> 06/02/24 0707 DD/ 0912 TD/TT: Preconstruction Manager: XR chest 2V Reviewed date:07/14/2024 08:39:43 AM Interpretation: Performing Lab: Notes/Report: [place] [address] XRay Report Signed Patient: Javi Smith MR#: [id number] 8 : 1985 Acct:[id number] Age/Sex: 39 / M ADM Date: 06/15/24 Loc: HO.JAMAALAY Attending Dr: Alfonso Sierra MD Ordering Physician: Alfonso Sierra MD Date of Service: 06/15/24 Procedure(s): XR chest 2V Accession Number(s): [id number] cc: Alfonso Sierra MD EXAMINATION: XR chest 2V CLINICAL INFORMATION: BACK PAIN COMPARISON: Chest radiograph 03/30/2024, 05/11/2024 TECHNIQUE: 2 views of the chest FINDINGS/ XR/XR chest 2V IMPRESSION: Clear lungs. No pneumothorax. No pleural effusion. Normal cardiomediastinal silhouette. Status post lower thoracic vertebral body kyphoplasty, similar to prior study. Electronically signed by: Pina Allison MD 07/13/2024 06:16 PM EDT Dictated By: Pina Allison MD Signed By: <Electronically signed by Pina Allison MD in OV> 07/13/24 1816 DD/ 0745 TD/TT: 06/15/24 0753 Preconstruction Manager: Complete Blood Count Auto Di ff Reviewed date:08/03/2024 12:14:32 PM Interpretation: Performing Lab:[facility], [address] [place] [address] Notes/Report: White Blood Count 9.5 4.8-10.8 X10*3/uL Red Blood Count 4.68 4.60-5.80 X10*6/uL Hemoglobin 14.6 14.0-18.0 g/dl Hematocrit 42.4 42.0-52.0 % Mean Corpuscular Volume 90.6 80.0-98.0 fL Mean Corpuscular Hemoglobin 31.2 27.0-33.0 pg Mean Corpuscular HGB Conc 34.4 31.0-36.0 g/dl Red Cell Distribution Width 12.7 11.0-16.0 % Platelet Count 247 160-400 X10*3/uL Mean Platelet Volume 10.4 9.4-12.4 fL Neutrophils Percent Auto 85.3 45-73 % Imm Gran Pct Auto 0.3 0.0-0.4 % Lymphocytes Percent Auto 6.3 20-40 % Monocytes Percent Auto 6.3 2-11 % Eosinophils Percent Auto 1.4 0-4 % Basophils Percent Auto 0.4 0-2 % NRBC Pct Auto 0.0 0.0-0.2 /100WBC Neutrophils Absolute Auto 8.1 2.0-8.3 x10*3/u L Imm Gran Abs Auto 0.03 0.00-0.03 X10*3/uL Lymphocytes Absolute Auto 0.6 1.2-4.9 X10*3/u L Monocytes Absolute Auto 0.6 0.1-1.2 X10*3/uL Eosinophils Absolute Auto 0.1 0.0-0.4 X10*3/u L Basophils Absolute Auto 0.0 0.0-0.2 X10*3/uL NRBC Abs Auto 0.000 0.0-0.012 X10*3/uL Prothrombin Time INR Reviewed date:08/03/2024 12:25:49 PM Interpretation: Performing Lab:[facility], [address] [place] [address] Notes/Report: Prothrombin Time 12.7 10.9-12.4 SEC INTERNATIONAL NORM RATIO 1.1 0.9-1.1 INTERNATIONAL NORMALIZED RATIO (INR) REFERENCE RANGES Reference Range For patients not on anticoagulant therapy: 0.9 - 1.1 INR ranges for oral anticoagulant therapy: For prevention and treatment of venous thrombosis and pulmonary embolism: 2.0 - 3.0 For acute myocardial infarction with aspirin therapy: 2.0 - 3.0 For acute myocardial infarction without aspirin therapy: 3.0 - 4.0 For patients with mechanical prosthetic heart valves: 2.5 - 3.5 Comprehensive Met. Panel Reviewed date:08/03/2024 12:26:08 PM Interpretation: Performing Lab:[facility], [address] [place] [address] Notes/Report: Sodium 140 135-145 mmol/L Potassium 3.7 3.3-5.1 mmol/L Chloride 106 96-108 mmol/L Carbon Dioxide 28 22-29 mmol/L Anion Gap 10 12-20 Blood Urea Nitrogen 13 9-16 mg/dL Creatinine 0.68 0.5-1.4 mg/dL Creatinine Clr Calc Pharmacy 118.4 eGFR (calculated from the MDRD study equation) and eCrCl (calculated from the Cockcroft-Gault equation) are based on different parameters and may not yield comparable results. If eCrCl result is absurd, please check patient's height/weight. Estimated Glomerular Filt Rate > 60 NOTE: For -Vincentian individuals, multiply the result by 1.210. Chronic Kidney Disease: Estimated GFR < 60 mL/min/1.73m2 Severe Kidney Disease: Estimated GFR < 15 mL/min/1.73m2 Glucose Random 122 60-115 mg/dL Calcium 9.8 8.4-10.2 mg/dL Bilirubin Total 1.1 0.0-1.0 mg/dL Aspartate Amino Transferase 74 5-37 U/L Alanine Aminotransferase 124 0-40 U/L Total Protein 7.5 6.5-8.0 g/dL Albumin Level 4.2 3.5-5.0 g/dL Alkaline Phosphatase 257 39-117 U/L Lipase Reviewed date:08/03/2024 12:13:19 PM Interpretation: Performing Lab:[facility], [address] [place] [address] Notes/Report: Lipase 38 8-78 U/L UA CC w/rflx Micro + Cult Reviewed date:08/05/2024 12:23:32 PM Interpretation: Performing Lab:[facility], [address] [place] [address] Notes/Report: [id number] Urine, Clean Catch Color Urine Dark Yellow Appearance Urine Clear PH 6.0 5.0-9.0 Glucose Urine UA Negative Negative mg/dL Urine Blood Negative Negative Specific [place] - Urine 1.025 1.005-1.025 Urine Protein Negative Neg-Trace mg/dL Urine Ketones Negative Negative mg/dL Nitrite Urine Negative Negative Leukocyte Esterase Urine Negative Negative XR lumbar spine 2-3V Reviewed date:08/05/2024 12:23:16 PM Interpretation: Performing Lab: Notes/Report: [address] [address] XRay Report Signed Patient: Javi Smith MR#: [id number] 8 : 1985 Acct:[id number] Age/Sex: 39 / M ADM Date: 08/03/24 Loc: .ED Attending Dr: Ordering Physician: Long Villagran Date of Service: 08/03/24 Procedure(s): XR lumbar spine 2-3V Accession Number(s): [id number] cc: Alfonso Sierra MD; Long Villagran EXAMINATION: XR LUMBOSACRAL SPINE CLINICAL INFORMATION: Ongoing back pain. COMPARISON: Lumbar spine 04/28/2024 TECHNIQUE: Three views of the lumbosacral spine. FINDINGS: Kyphoplasty changes are seen at T10 and T11. Prior right inguinal hernia surgery. Again noted are superior endplate compression fractures involving L2 and L5, unchanged when compared to prior. No new compression fractures. There is mild disc space narrowing at L3-L4 and L4-L5. There has been no interval change when compared to the prior study. XR/XR lumbar spine 2-3V IMPRESSION: 1. Stable appearance of compression fractures involving L2 and L5. No new compression fractures. 2. Kyphoplasty changes at T10 and T11. Electronically signed by: Madhav Bhat MD 08/03/2024 01:25 PM EDT Dictated By: Madhav Bhat MD Signed By: <Electronically signed by Madhav Bhat MD in OV> 08/03/24 1325 DD/ 1133 TD/TT: 08/03/24 1154 Preconstruction Manager: SARAH Complete Blood Count Auto Di ff Reviewed date:10/05/2024 12:46:36 PM Interpretation: Performing Lab:[facility], [address] [place] [phone] Notes/Report: White Blood Count 12.5 4.8-10.8 X10*3/uL Red Blood Count 5.17 4.60-5.80 X10*6/uL Hemoglobin 15.9 14.0-18.0 g/dl Hematocrit 47.3 42.0-52.0 % Mean Corpuscular Volume 91.5 80.0-98.0 fL Mean Corpuscular Hemoglobin 30.8 27.0-33.0 pg Mean Corpuscular HGB Conc 33.6 31.0-36.0 g/dl Red Cell Distribution Width 12.8 11.0-16.0 % Platelet Count 295 160-400 X10*3/uL Mean Platelet Volume 10.0 9.4-12.4 fL Neutrophils Percent Auto 90.1 45-73 % Imm Gran Pct Auto 0.5 0.0-0.4 % Lymphocytes Percent Auto 3.6 20-40 % Monocytes Percent Auto 5.0 2-11 % Eosinophils Percent Auto 0.6 0-4 % Basophils Percent Auto 0.2 0-2 % NRBC Pct Auto 0.0 0.0-0.2 /100WBC Neutrophils Absolute Auto 11.3 2.0-8.3 x10*3/u L Imm Gran Abs Auto 0.06 0.00-0.03 X10*3/uL Lymphocytes Absolute Auto 0.5 1.2-4.9 X10*3/u L Monocytes Absolute Auto 0.6 0.1-1.2 X10*3/uL Eosinophils Absolute Auto 0.1 0.0-0.4 X10*3/u L Basophils Absolute Auto 0.0 0.0-0.2 X10*3/uL NRBC Abs Auto 0.000 0.0-0.012 X10*3/uL White Blood Count 12.5 4.8-10.8 X10*3/uL Red Blood Count 5.17 4.60-5.80 X10*6/uL Hemoglobin 15.9 14.0-18.0 g/dl Hematocrit 47.3 42.0-52.0 % Mean Corpuscular Volume 91.5 80.0-98.0 fL Mean Corpuscular Hemoglobin 30.8 27.0-33.0 pg Mean Corpuscular HGB Conc 33.6 31.0-36.0 g/dl Red Cell Distribution Width 12.8 11.0-16.0 % Platelet Count 295 160-400 X10*3/uL Mean Platelet Volume 10.0 9.4-12.4 fL Neutrophils Percent Auto 90.1 45-73 % Imm Gran Pct Auto 0.5 0.0-0.4 % Lymphocytes Percent Auto 3.6 20-40 % Monocytes Percent Auto 5.0 2-11 % Eosinophils Percent Auto 0.6 0-4 % Basophils Percent Auto 0.2 0-2 % NRBC Pct Auto 0.0 0.0-0.2 /100WBC Neutrophils Absolute Auto 11.3 2.0-8.3 x10*3/u L Imm Gran Abs Auto 0.06 0.00-0.03 X10*3/uL Lymphocytes Absolute Auto 0.5 1.2-4.9 X10*3/u L Monocytes Absolute Auto 0.6 0.1-1.2 X10*3/uL Eosinophils Absolute Auto 0.1 0.0-0.4 X10*3/u L Basophils Absolute Auto 0.0 0.0-0.2 X10*3/uL NRBC Abs Auto 0.000 0.0-0.012 X10*3/uL Comprehensive Met. Panel Reviewed date:10/05/2024 12:43:21 PM Interpretation: Performing Lab:[facility], [address] [place] [phone] Notes/Report: Sodium 139 135-145 mmol/L Potassium 4.2 3.3-5.1 mmol/L Chloride 100 96-108 mmol/L Carbon Dioxide 29 22-29 mmol/L Anion Gap 14 12-20 Blood Urea Nitrogen 15 9-16 mg/dL Creatinine 0.75 0.5-1.4 mg/dL Creatinine Clr Calc Pharmacy 112.9 eGFR (calculated from the MDRD study equation) and eCrCl (calculated from the Cockcroft-Gault equation) are based on different parameters and may not yield comparable results. If eCrCl result is absurd, please check patient's height/weight. Estimated Glomerular Filt Rate > 60 Chronic Kidney Disease: Estimated GFR < 60 mL/min/1.73m2 Severe Kidney Disease: Estimated GFR < 15 mL/min/1.73m2 Glucose Random 126 60-115 mg/dL Calcium 9.9 8.4-10.2 mg/dL Bilirubin Total 1.5 0.0-1.0 mg/dL Aspartate Amino Transferase 108 5-37 U/L Alanine Aminotransferase 176 0-40 U/L Total Protein 8.6 6.5-8.0 g/dL Albumin Level 4.7 3.5-5.0 g/dL Alkaline Phosphatase 294 39-117 U/L SLIDE REVIEW Reviewed date:10/05/2024 12:41:54 PM Interpretation: Performing Lab:[facility], [address] [place] [phone] Notes/Report: SLIDE REVIEW VERIFIED CT chest wo con (Not yet rev iewed by provider) Interpretation:appt 10-14-2024 Performing Lab: Notes/Report: [address] [address] [address] Scan Report Signed Patient: Javi Smith MR#: [id number] 8 : 1985 Acct:[id number] Age/Sex: 39 / M ADM Date: 10/05/24 Loc: HO.ED Attending Dr: Ordering Physician: Homer Larsen MD Date of Service: 10/05/24 Procedure(s): CT chest wo IV con Accession Number(s): [id number] cc: Alfonso Sierra MD; Homer Larsen MD EXAMINATION: CT CHEST WITHOUT CONTRAST CLINICAL INFORMATION: Abnormal chest radiograph COMPARISON: CT lumbar spine October 05, 2024, chest radiograph October 05, 2024 TECHNIQUE: Multidetector volumetric CT imaging of the chest was done. Axial MIP volume rendering provided. Sagittal and coronal reformatted images were obtained. This CT examination was performed using dose optimization techniques as appropriate, variously including the following: *Automated exposure control *Adjustment of mA and/or kV according to patient size (this includes techniques or standardized protocols for targeted exams where dose is matched to indication/reason for exam; i.e. extremities or head) *Use of iterative reconstruction technique DLP: 761 mGy-cm FINDINGS: LUNGS: Dependent atelectasis bilaterally. No focal consolidation. No pleural effusion. MEDIASTINUM: The mediastinum is normal. CORONARY ARTERY CALCIFICATION: None visualized on this study. AXILLA: No lymphadenopathy. UPPER ABDOMEN: Partially visualized ascites posterior to the liver OSSEOUS STRUCTURES: Vertebral augmentation cement within the T10 and T11 vertebral bodies. Age indeterminate compression deformities of T7 and T8. CT/CT chest wo IV con IMPRESSION: 1. No acute pulmonary findings. 2. Age indeterminate compression deformities of T7 and T8. 3. Partially visualized ascites posterior to the liver. Fleischner guidelines were followed. Electronically signed by: Jose Alfredo Garcia MD 10/05/2024 08:36 PM [facility] Dictated By: Jose Alfredo Garcia MD Signed By: <Electronically signed by Jose Alfredo Garcia MD in OV> 10/05/242035 DD/ 164 TD/TT: 10/05/24 1653 Preconstruction Manager: CT lumbar spine wo con Reviewed date:10/07/2024 03:28:04 PM Interpretation: Performing Lab: Notes/Report: [address] [address] [address] Scan Report Signed Patient: Javi Smith MR#: [id number] 8 : 1985 Acct:[id number] Age/Sex: 39 / M ADM Date: 10/05/24 Loc: HO.ED Attending Dr: Ordering Physician: Homer Larsen MD Date of Service: 10/05/24 Procedure(s): CT lumbar spine wo IV con Accession Number(s): [id number] cc: Alfonso Sierra MD; Homer Larsen MD EXAMINATION: CT LUMBAR SPINE WITHOUT CONTRAST CLINICAL INFORMATION: Burst fracture of the lumbar spine. COMPARISON: Lumbar spine radiographs from 11/02/2024. TECHNIQUE: Multidetector helical imaging of the lumbar spine was obtained without intravenous contrast. Multiple axial reformats and coronal/sagittal reconstructions were created the technologist workstation for review. This CT examination was performed using dose optimization techniques as appropriate, variously including the following: *Automated exposure control. *Adjustment of mA and/or kV according to patient size (this includes techniques or standardized protocols for targeted exams where dose is matched to indication/reason for exam; i.e. extremities or head). *Use of iterative reconstruction technique. DLP: 481 mGy-cm FINDINGS: Normal anatomic alignment. No evidence of acute fracture or traumatic subluxation. 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 Chronic compression deformities of the L2, L4, and L5 vertebral bodies with moderate Schmorl's nodes in the superior endplates of each of these levels. There is 60% loss of L2 vertebral body height, 20% loss of L4 superior endplate height, and 60% loss of L5 vertebral body height. Mild chronic retropulsion of the superior-posterior body wall of L2, L4, and L5. The remaining vertebral body heights are maintained. Mild multilevel degenerative disc disease throughout the lumbar spine. No suspicious lytic or sclerotic osseous lesions. No significant abnormalities of the paraspinal musculature. Prominent expansion of the urinary bladder. Otherwise, limited evaluation of the intra-abdominal structures without significant abnormalities. The abdominal aorta is of normal contour and caliber. AXIAL SPINAL LEVELS: L1-L2: Mild diffuse disc bulge with posterior osseous ridging. There is mild bilateral facet joint arthropathy. There is no neural foraminal stenosis. There is no demonstrated spinal canal stenosis. L2-L3: Normal annular contour. There is mild bilateral facet joint arthropathy. There is no neural foraminal stenosis. There is no demonstrated spinal canal stenosis. L3-L4: Moderate diffuse disc bulge with posterior osseous ridging. There is mild to moderate bilateral facet joint arthropathy. There is mild bilateral neural foraminal stenosis. There is no demonstrated spinal canal stenosis. L4-L5: Mild diffuse disc bulge with posterior osseous ridging. There is mild to moderate bilateral facet joint arthropathy. There is mild bilateral neural foraminal stenosis. There is no demonstrated spinal canal stenosis. L5-S1: Shallow diffuse disc bulge. There is mild bilateral facet joint arthropathy. There is mild bilateral neural foraminal stenosis. There is no demonstrated spinal canal stenosis. CT/CT lumbar spine wo IV con IMPRESSION: 1. No evidence of acute fracture or traumatic subluxation of the lumbar spine. 2. Chronic compression deformities of the L2, L4, and L5 vertebral bodies. 3. Otherwise, mild multilevel degenerative spondyloarthropathy of the lumbar spine as described in detail above. Most notably on this limited exam without intrathecal contrast, there appears to be mild neural foraminal stenoses from L3-S1. No demonstrated overt spinal canal stenosis. 4. Prominent expansion of the urinary bladder. Electronically signed by: Will Cabral DO 10/05/2024 06:21 PM [facility] Dictated By: Dave Cabral DO Signed By: <Electronically signed by Dave Cabral DO in OV> 10/05/24 1821 DD/ 1549 TD/TT: 10/05/24 1653 Preconstruction Manager: GEOVANNA CT head/brain wo con Reviewed date:10/05/2024 01:00:35 PM Interpretation: Performing Lab: Notes/Report: [address] [address] [address] Scan Report Signed Patient: Javi Smith MR#: [id number] 8 : 1985 Acct:[id number] Age/Sex: 39 / M ADM Date: 10/05/24 Loc: HO.ED Attending Dr: Ordering Physician: Homer Larsen MD Date of Service: 10/05/24 Procedure(s): CT head/brain wo IV con Accession Number(s): [id number] cc: Alfonso Sierra MD; Homer Larsen MD EXAMINATION: CT HEAD WITHOUT CONTRAST CLINICAL INFORMATION: seizure COMPARISON: CT dated March 28, 2024. TECHNIQUE: Contiguous axial imaging was performed from the skull base to vertex without intravenous administration of contrast. This CT examination was performed using dose optimization techniques as appropriate, variously including the following: *Automated exposure control *Adjustment of mA and/or kV according to patient size (this includes techniques or standardized protocols for targeted exams where dose is matched to indication/reason for exam; i.e. extremities or head) *Use of iterative reconstruction technique DLP: 780 mGy-cm FINDINGS: Limited by patient's motion artifact. Bony calvarium is intact. Skull base is intact. No acute intracranial hemorrhage, mass effect, midline shift, hydrocephalus or herniation. Yeager-white matter differentiation is normal. Posterior cranial fossa contents demonstrated no acute intracranial hemorrhage or mass effect. Calcified plaques in the cavernous supracavernous segments both ICAs. Polyploid mucosal thickening in both maxillary sinuses. 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 Probable high riding internal jugular bulbs, bilaterally. Prominent internal auditory canals. CT/CT head/brain wo IV con IMPRESSION: No acute fracture, bony calvarium. No acute intracranial hemorrhage. Stable appearance of the brain. Polypoid pattern paranasal sinus disease. Electronically signed by: Claude Casas MD 10/05/2024 12:44 PM EST RP Dictated By: Claude Brown MD Signed By: <Electronically signed by Claude Rowland MD in OV> 10/05/24 1244 DD/ 1154 TD/TT: 10/05/24 1159 Preconstruction Manager: XR chest 2V Reviewed date:10/05/2024 04:45:14 PM Interpretation: Performing Lab: Notes/Report: [address] [address] XRay Report Signed Patient: Javi Smith MR#: [id number] 8 : 1985 Acct:[id number] Age/Sex: 39 / M ADM Date: 10/05/24 Loc: HO.ED Attending Dr: Ordering Physician: Hmoer Larsen MD Date of Service: 10/05/24 Procedure(s): XR chest 2V Accession Number(s): [id number] cc: Alfonso Sierra MD; Homer Larsen MD EXAMINATION: XR CHEST CLINICAL INFORMATION: cough COMPARISON: X-ray dated June 15, 2024 TECHNIQUE: 2 views of the chest were obtained. FINDINGS: Prominence of the interstitial lung markings with indistinct margins in the perihilar regions and the lower hemithoraces. No gross pleural effusion. No pneumothorax. Low lung volume. Cardiac mediastinal silhouette appears unchanged. Status post kyphoplasty/vertebroplasty procedure at T10 and T11. XR/XR chest 2V IMPRESSION: Pulmonary edema in the correct clinical settings. Electronically signed by: Claude Casas MD 10/05/2024 02:29 PM EST RP Dictated By: Claude Brown MD Signed By: <Electronically signed by Claude Rowland MD in OV> 10/05/24 1429 DD/ 1320 TD/TT: 10/05/24 1330 Preconstruction Manager: XR lumbar spine 2-3V Reviewed date:10/05/2024 04:45:47 PM Interpretation: Performing Lab: Notes/Report: [address] [address] XRay Report Signed Patient: Javi Smith MR#: [id number] 8 : 1985 Acct:[id number] Age/Sex: 39 / M ADM Date: 10/05/24 Loc: HO.ED Attending Dr: Ordering Physician: Homer Larsen MD Date of Service: 10/05/24 Procedure(s): XR lumbar spine 2-3V Accession Number(s): [id number] cc: Alfonso Sierra MD; Homer Larsen MD EXAMINATION: XR LUMBOSACRAL SPINE CLINICAL INFORMATION: back pain COMPARISON: X-ray dated August 03, 2024 TECHNIQUE: Three views of the lumbosacral spine. FINDINGS: Burst fractures representing 50% volume loss at L2 and L5. Kyphoplasty/vertebroplasty procedure at T10 and T11. Osteopenia versus osteoporosis. No gross malalignment. Abundant stool in the large intestine. Metallic coils overlapping the right lower pelvis/inguinal region. XR/XR lumbar spine 2-3V IMPRESSION: Subacute to old burst fractures, L2 and L5. Osteopenia versus osteoporosis. Electronically signed by: Claude Casas MD 10/05/2024 02:32 PM EST RP Dictated By: Claude Brown MD Signed By: <Electronically signed by Claude Rowland MD in OV> 10/05/24 1432 DD/ 1308 TD/TT: 10/05/24 1330 Preconstruction Manager: REASON FOR REFERRAL Reason compression fracture of thoracic vertebra Diagnosis 1 Compression fracture of thoracic vertebra with routine healing, unspecified thoracic vertebral level, subsequent encounter (S22.000D) Referral Organization Alfonso Sierra MD Referring Provider First Name Alfonso Referring Provider Last Name Rigo Referring Provider Speciality Internal M edicine Referred Provider Jeff Ambrose Referred Provider Specialty Neurosurgery General Notes Oumou Hale 10:17:19 AM EST > info faxed Geoffrey Annette 12/30/2023 11:14:37 AM EST > spoke with Dr. Ambrose office they are giving Dr. Ambrose the referral and ER [place] [facility] they will get back to me , Oumou Hale 01/01/2024 01:16:26 PM EST > spoke with office they are waiting the CT films to review and they said they would call patietn with an appt. patient was called with this info , Oumou Hale 01/05/2024 10:22:30 AM EST > patient was seen on Friday01-02-24 going back for an MRI Referral Priority Urgent Referral Appointment Date 01/02/2024 Reason osteopetrosis Diagnosis 1 Osteopetrosis (Q78.2 ) Referral Organization Alfonso Sierra MD Referring Provider First Name Alfonso Referring Provider Last Name Rigo Referring Provider Speciality Internal M edicine Referred Provider Marcial Dean Referred Provider Specialty Endocrinolog y General Notes Oumou Hale 10:23:55 AM EST > info faxed , Oumou Hale 12/30/2023 03:16:28 PM EST > info faxed , Oumou Hale 01/13/2024 02:24:42 PM EDT >was told by office info needs to be refaxed , Oumou Hale 01/15/2024 01:49:02 PM EDT > info refaxed Geoffrey Annette 01/20/2024 01:49:16 PM EDT > info refaxGeoffrey guevara Annette 02/06/2024 09:43:22 AM EDT > info mailed to patient , Oumou Hale 04/22/2024 09:49:43 AM EDT > info faxed to Dr. Dean's office , Oumou Hale 04/26/2024 10:17:16 AM EDT > spoke with office they said they left message for patient to called to make his appt, I was told I was not able to make the appt for him., Oumou Hale 04/27/2024 03:07:16 PM EDT > patient is aware of appt Referral Priority Routine Referral Appointment Date 06/08/2024 Reason increased ammonia le alis Diagnosis 1 Increased ammonia le alis (R79.89) Referral Organization Alfonso Sierra MD Referring Provider First Name Alfonso Referring Provider Last Name Rigo Referring Provider Speciality Internal M edicine Referred Provider Lacho Mendez Referred Provider Specialty Gastroentero logy General Notes Oumou Hale 02:44:51 PM EDT > info faxedGeoffrey Annette 04/27/2024 03:06:54 PM EDT > patient is aware of appt , Bhumika Hdz 05/13/2024 02:28:38 PM EDT > OFFICE NOTES RECD Referral Priority Routine Referral Appointment Date 04/29/2024 Reason Seizures Abnormal EE G Diagnosis 1 Seizure disorder (G4 0.909) Referral Organization Alfonso Sierra MD Referring Provider First Name Alfonso Referring Provider Last Name Rigo Referring Provider Speciality Internal edicine Referred Provider Julien Galo Referred Provider Specialty Neurology General Notes Oumou Hale 12:01:11 PM EDT > info faxed Geoffrey Annette 07/22/2024 01:16:13 PM EDT > called patient with info and mailed info , Bhumika Hdz 09/23/2024 10:08:15 AM EST > NOTTES RECD Referral Priority Routine Referral Appointment Date 09/21/2024 MEDICATIONS Medication SIG (Take, Route, Fr equency, Duration) Notes Start Date End Date Status Eliquis 5 MG 1 tablet Orally Twic e a day for 90 days Active Forteo 600 MCG/2.4ML as directed Subcutaneous Active Lialda 1.2 GM as directed Orally Active Ursodiol 250 MG as directed Orally qid Active IMMUNIZATIONS Vaccine Route Administration Date Status Comme nts SARS-COV-2 Moderna Unknown 02/28/2021 Administered SARS-COV-2 Moderna Unknown 03/29/2021 Administered zFluzone Quadrivalent Unknown 10/13/2015 Refused Fluarix Quadrivalent Unknown 07/30/2016 Refused Fluarix Quadrivalent Unknown 08/19/2017 Refused Fluarix Quadrivalent Unknown 08/18/2018 Refused Fluarix Quadrivalent Unknown 11/10/2018 Refused TDaP Unknown 05/10/2019 Refused Fluarix Quadrivalent Unknown 11/23/2020 Refused Fluarix Quadrivalent Unknown 11/27/2021 Refused Fluarix Quadrivalent - 150 Unknown 09/09/2024 Refused SOCIAL HISTORY Tobacco Use: Social History Observation Description Date Details (start date - stop date) Never Smoker NA - NA Sex Assigned At : Social History Observation Description Sex Assigned At Unknown Tobacco Use/Smoking Question Answer Notes Patient is a nonsmoker Additional Findings: Tobacco Non-User Cu rrent non-smoker, currently using no form of tobacco Alcohol Screen Question Answer Notes Did you have a drink containing alcohol in the p ast year? No Points 0 Interpretation Negative PROBLEMS Problem Type ICD Code Onset Dates Problem Status W/U Status Risk SNOMED Code Notes Problem Osteopetrosis (Q78.2) Active confirmed Osteopetrosis (6109398) Problem Seizure disorder (G40.909) Active confirmed 112234071 Problem 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 Ulcerative proctocolitis (681253114) Problem Acute saddle pulmonary embolism without acute cor pulmonale (I26.92) Active confirmed [id number] Problem Clubbing of nail (R68.3) Active confirmed 5506737 Problem 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 244493861 Problem Compression fracture of thoracic vertebra with routine healing, unspecified thoracic vertebral level, subsequent encounter (S22.000D) Active confirmed 127826537 VITAL SIGNS Blood pressure diastolic 44 mm Hg 09/09/2024 drake ght is down 4 pounds since 06-24-24 Height 64 in 09/09/2024 weight is down 4 pounds since 06-24-24 Blood pressure systolic 82 mm Hg 09/09/2024 weig ht is down 4 pounds since 06-24-24 Weight 125 lbs 09/09/2024 weight is down 4 pounds since 06-24-24 BMI 21.45 kg/m2 09/09/2024 weight is down 4 pounds since 06-24-24 Encounters Encounter Location Date Provider Diagnosis Alfonso Sierra MD [address] [place] [address] [id number] 03/11/2024 Alfonso Sierra Rising PSA level R97.20 ; Annual physical exam Z00.00 ; Compression fracture of thoracic vertebra with routine healing, unspecified thoracic vertebral level, subsequent encounter S22.000D and Depression screening Z13.31 Alfonso Sierra MD [address] [place] [address] [id number] 03/04/2024 Alfonso Sierra Blood tests for routine general physical examination Z00.00 Alfonso Sierra MD [address] [place] [address] [id number] 12/29/2023 Alfonso Sierra Elevated LFTs R79.89 and Compression fracture of thoracic vertebra with routine healing, unspecified thoracic vertebral level, subsequent encounter S22.000D Alfonso Sierra MD [address] [place] [address] [id number] 01/05/2024 Alfonso Sierra Compression fracture of thoracic vertebra with routine healing, unspecified thoracic vertebral level, subsequent encounter S22.000D Alfonso Sierra MD [address] [place] [address] [id number] 09/09/2024 Alfonso Sierra Seizure disorder G40.909 Alfonso Sierra MD [address] [place] [address] [id number] 05/20/2024 Alfonso Sierra Compression fracture of thoracic vertebra with routine healing, unspecified thoracic vertebral level, subsequent encounter S22.000D ; Osteopetrosis Q78.2 ; Acute saddle pulmonary embolism without acute cor pulmonale I26.92 and Seizure disorder G40.909 Alfonso Sierra MD [address] [place] [address] [id number] 06/24/2024 Alfonso Sierra Acute saddle pulmonary embolism without acute cor pulmonale I26.92 and Compression fracture of thoracic vertebra with routine healing, unspecified thoracic vertebral level, subsequent encounter S22.000D Alfonso Sierra MD [address] [place] [address] [id number] 04/22/2024 Alfonso Sierra Other acute pulmonar y embolism without acute cor pulmonale I26.99 ; Increased ammonia level R79.89 ; Osteopetrosis Q78.2 and Compression fracture of thoracic vertebra with routine healing, unspecified thoracic vertebral level, subsequent encounter S22.000D Alfonso Sierra MD [address] [place] [address] [id number] 05/04/2024 Alfonso Sierra History of pneumonia Z87.01 ; Seizure disorder G40.909 and Acute saddle pulmonary embolism without acute cor pulmonale I26.92 Alfonso Sierra MD [address] [place] [address] [id number] 01/08/2024 Alfonso Sierra Compression fracture of thoracic vertebra with routine healing, unspecified thoracic vertebral level, subsequent encounter S22.000D Alfonso Sierra MD [address] [place] [address] [id number] 04/06/2024 Alfonso Sierra MD [address] [place] [address] [id number] 04/29/2024 Alfonso Sierra Back pain M54.9 Alfonso Sierra MD [address] [place] [address] [id number] 04/29/2024 Alfonso Sierra MD [address] [place] [address] [id number] 04/29/2024 Alfonso Sierra MD [address] [place] [address] [id number] 05/17/2024 Alfonso Sierra Acute saddle pulmonary embolism without acute cor pulmonale I26.92 Alfonso Sierra MD [address] [place] [address] [id number] 06/03/2024 Alfonso Sierra Back pain M54.9 Alfonso Sierra MD [address] [place] [address] [id number] 08/17/2024 Alfonso Sierra MD [address] [place] [address] [id number] 09/14/2024 Alfonso Sierra Acute saddle pulmonary embolism without acute cor pulmonale I26.92 Alfonso Sierra MD [address] [place] [address] [id number] 10/07/2024 Alfonso Sierra MD [address] [place] [address] [id number] 10/11/2024 Alfonso Sierra ASSESSMENTS Encounter Date Diagnosis Assessment Notes Treatment Notes Treatment Clinical Notes 03/11/2024 Annual physical exam (ICD-10 - Z00.00) labs reviewed and discussed with patient 03/11/2024 Rising PSA level (ICD-10 - R97.20) pending additional labs 03/04/2024 Blood tests for routine general physical examination (ICD-10 - Z00.00) 12/29/2023 Elevated LFTs (ICD-10 - R79.89) need blood results from [facility] 12/29/2023 Compression fracture of thoracic vertebra with routine healing, unspecified thoracic vertebral level, subsequent encounter (ICD-10 - S22.000D) refer to dr dean as urgent visit/ referral to dr ambrose as urgent with unstable spine/ told not to work and no running or lifting 01/05/2024 Compression fracture of thoracic vertebra with routine healing, unspecified thoracic vertebral level, subsequent encounter (ICD-10 - S22.000D) is followed by neurosurgery. going back after mri done hopefully this week.. is going to go to pain management. rashawn is going to try to get endocrine at [facility] 09/09/2024 Seizure disorder (ICD-10 - G40.909) patient had an abnormal eeg. is going to see neurology in 2 weeks. will probably need mri of brain. if neurology doesn't order i will do it 05/20/2024 Osteopetrosis (ICD-10 - Q78.2) 05/20/2024 Compression fracture of thoracic vertebra with routine healing, unspecified thoracic vertebral level, subsequent encounter (ICD-10 - S22.000D) will allow him to go back to work without lifting 06/24/2024 Acute saddle pulmonary embolism without acute cor pulmonale (ICD-10 - I26.92) will keep anticoagulants for 6 montn 06/24/2024 Compression fracture of thoracic vertebra with routine healing, unspecified thoracic vertebral level, subsequent encounter (ICD-10 - S22.000D) going to start forteo 04/22/2024 Other acute pulmonary embolism without acute cor pulmonale (ICD-10 - I26.99) has recovered 04/22/2024 Increased ammonia level (ICD-10 - R79.89) was back to normal needs referral to dr mendez 05/04/2024 Seizure disorder (ICD-10 - G40.909) pending diagnostic testing/ order faxed to [facility] 05/04/2024 History of pneumonia (ICD-10 - Z87.01) is scheduled for repeat cxr 01/08/2024 Compression fracture of thoracic vertebra with routine healing, unspecified thoracic vertebral level, subsequent encounter (ICD-10 - S22.000D) 05/17/2024 Acute saddle pulmonary embolism without acute cor pulmonale (ICD-10 - I26.92) 09/14/2024 Acute saddle pulmonary embolism without acute cor pulmonale (ICD-10 - I26.92) 03/11/2024 Compression fracture of thoracic vertebra with routine healing, unspecified thoracic vertebral level, subsequent encounter (ICD-10 - S22.000D) is doing well at present. no running 05/20/2024 Acute saddle pulmonary embolism without acute cor pulmonale (ICD-10 - I26.92) will need to stay of blood thinners for 6 months 04/22/2024 Osteopetrosis (ICD-10 - Q78.2) to get to endocrine/ appt being worked on 05/04/2024 Acute saddle pulmonary embolism without acute cor pulmonale (ICD-10 - I26.92) if we had to stop the eliquis would need a filter 04/29/2024 Back pain (ICD-10 - M54.9) 06/03/2024 Back pain (ICD-10 - M54.9) order printed and to be picked up to be done before his 06-24-24 visit 03/11/2024 Depression screening (ICD-10 - Z13.31) negative screen 05/20/2024 Seizure disorder (ICD-10 - G40.909) awaiting diagnostic study 04/22/2024 Compression fracture of thoracic vertebra with routine healing, unspecified thoracic vertebral level, subsequent encounter (ICD-10 - S22.000D) will start meds PLAN OF TREATMENT Pending Test Test Name Order Date CT chest wo con 10/05/2024 XR chest 2V 04/29/2024 XR chest 2V 06/03/2024 EEG awake and asleep 05/04/2024 Next Appt Details Provider Name:Alfonso martinez, 10/14/2024 11:30:00 AM, [address] [place] [address], [address], [place], [place], [phone], Provider Name:Alfonso Avendano ier, 03/10/2025 07:45:00 AM, [address], [address], [place], [phone], Provider Name:Alfonso Avendano ier, 03/17/2025 11:00:00 AM, [address], [address], [place], [phone], Insurance Providers Payer Name Payer Address Payer Phone Subscriber Number Group Number Insured Name Patient Relationship to Insured Coverage Start Date Coverage End Date [employer] [address] [address] [place] [phone] [id number] Javi Smith Self - patient is the insured [employer] [place] CLAIM OFFICE [address] [place] [address] [phone] [id number] Javi Smith Self - patient is the insured MEDICAL (GENERAL) HISTORY Medical History History ICD Code 04/30/2019 - colonoscopy by Dr. Mendez : Clonoscopy 12/10/22 pending path daquan is ignacio
--- OUTSIDE RECORDS SUMMARY | 2024-10-12 13:02 | XMS_ITS | Continuity of Care Document ---
Author Organization [facility] Address [address] [place] [address] Phone [phone] Social History Type Date Description Comments Sex Unknown Medical Devices Description No Information Available Encounters Description No Information Available Assessments Description No Information Available Plan of Treatment No Information Available Functional Status Description No Information Available Mental Status Description No Information Available Referrals Description No Information Available
== END 2024-10-05 21:05 | disposition home or self-care (01) ==
PROVIDERS: Emergency Medicine; Emergency Provider Emergency Medicine Emergency Medical Services; PCP Internal Medicine
DX: R56.9 Unspecified convulsions (principal); M48.56XA Collapsed vertebra, not elsewhere classified, lumbar region, initial encounter for fracture; M54.50 Low back pain, unspecified; R07.81 Pleurodynia; Z79.01 Long term (current) use of anticoagulants; Z79.899 Other long term (current) drug therapy
CPT/HCPCS: 36415; 70450; 71046; 71250; 72100; 72131; 80053; 85025; 96365; 96366; 99284; J1953

== ENCOUNTER → 2024-10-05 11:35 | Outpatient (BNV) | payer OTHER, SELFPAY | PROVIDERS: Emergency Provider Emergency Medicine; PCP Internal Medicine; Visit Provider Radiology Diagnostic Radiology | DX: R56.9 Unspecified convulsions (principal); M54.9 Dorsalgia, unspecified; R07.9 Chest pain, unspecified | CPT/HCPCS: 70450; 71046; 72100 ==

== ENCOUNTER 2024-10-19 08:03 | Outpatient (REF) | payer OTHER, SELFPAY ==
--- OUTSIDE RECORDS SUMMARY | 2024-10-19 08:05 | XMS_ITS ---
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 and Other ascites R18.8 ASSESSMENTS Encounter Date Diagnosis Assessment Notes Treatment Notes Treatment Clinical Notes 10/15/2024 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
--- OUTSIDE RECORDS SUMMARY | 2024-10-19 08:05 | XMS_ITS ---
Author Organization Alfonso Sierra MD Address [address] [facility] [address] [place] [phone] Care Team Providers Care Food And Beverage Cashier Name Role Phone Alfonso Sierra Primary Care Provider REASON FOR VISIT FYI CT chest Encounters Encounter Location Date Provider Diagnosis Alfonso Sierra MD 10 [facility] [address] [place] [phone] 10/11/2024 Alfonso Sierra PLAN OF TREATMENT Next Appt Details Provider Name:Alfonso martinez, 11/16/2024 11:15:00 AM, [address] [place] [address], [address] [place] [address], [phone], Provider Name:Alfonso martinez, 03/10/2025 07:45:00 AM, [address] [place] [address], [address], [phone], Provider Name:Alfonso martinez, 03/17/2025 11:00:00 AM, [address] [place] [address], [address], [phone],
--- OUTSIDE RECORDS SUMMARY | 2024-10-19 08:05 | XMS_ITS ---
Author Organization [facility] Address [address] [place] [address] Care Team Providers Care Cook Camp Name Role Phone Rigo CHUNG, Alfonso Primary Care Provider Lacho Zhou Jr Unavailable ALLERGIES No Known Allergies RESULTS Component Value Reference Range Notes Liver Fibrosis Pnl Reviewed date:05/21/2024 07:37:30 AM Interpretation: Performing Lab:[facility], [address] [place] [phone] Notes/Report: Liver Fibrosis Score 0.42 Liver Fibrosis Stage F1-F2 Liver Fibrosis Interpretation SEE NOTE minimal fibrosis Fibro Test Score (f) Metavir Score f>=0 and f<=0.21 : F0 (no fibrosis) f>0.21 and f<=0.27 : F0-F1 (no fibrosis) f>0.27 and f<=0.31 : F1 (minimal fibrosis) f>0.31 and f<=0.48 : F1-F2 (minimal fibrosis) f>0.48 and f<=0.58 : F2 (moderate fibrosis) f>0.58 and f<=0.72 : F3 (advanced fibrosis) f>0.72 and f<=0.74 : F3-F4 (advanced fibrosis) f>0.74 and f<=1.00 : F4 (severe fibrosis) Nec Inflam Act Score 0.64 Nec Inflam Act Grade A3 Nec Inflam Act Interpretation SEE NOTE severe activity ActiTest Score (a) Metavir Score a>=0 and a<=0.17 : A0 (no activity) a>0.17 and a<=0.29 : A0-A1 (no activity) a>0.29 and a<=0.36 : A1 (minimal activity) a>0.36 and a<=0.52 : A1-A2 (minimal activity) a>0.52 and a<=0.60 : A2 (significant activity) a>0.60 and a<=0.62 : A2-A3 (significant activity) a>0.62 and a<=1.00 : A3 (severe activity) PUA-Wavgb-2-Macroglobulin 171 106-279 mg/dL FIB-Haptoglobin 136 43-212 mg/dL FIB-Apolipoprotein A1 110 94-176 mg/dL FIB-Total Bilirubin 1.0 0.2-1.2 mg/dL FIB-GGT 130 3-90 U/L FIB-ALT 107 9-46 U/L Reference ID [id number] Footnote SEE NOTE The reliability of results is dependent on compliance with the preanalytical and analytical conditions recommended by [employer]. The tests have to be deferred for: acute hemolysis, acute hepatitis, acute inflammation, extra hepatic cholestasis. The advice of a specialist should be sought for interpretation in chronic hemolysis and Gilbert's syndrome. The test interpretation is not validated in liver transplant patients. Isolated extreme values of one of the components should lead to caution in interpreting the results. In case of discordance between a biopsy result and a test, it is recommended to seek the advice of a specialist. The causes of these discordances could be due to a flaw of the test or to a flaw in the biopsy: i.e. a liver biopsy has a 33% variability rate for one fibrosis stage. FibroTest is interpretable for chronic hepatitis B and C, alcoholic and non alcoholic steatosis. ActiTest is interpretable for chronic hepatitis B and C. The performance characteristics have been determined by [employer], [place]. It has not been cleared or approved by the U.S. Food and Drug Administration. Performance characteristics refer to the analytical performance of the test. Proformative, the associated logo, [employer] and all associated [employer] carson are the registered trademarks of [employer]. All third green party carson - (R) and (TM) - are the property of their respective owners. (C) 4254-1401 [employer]. All rights reserved. THIS TEST WAS PERFORMED AT: [employer] [facility] [address] [place] [address] RUBINA OWENS MD,PHD,LATANYA REASON FOR VISIT Patient presents today for a HOSPITAL F/U MEDICATIONS Medication SIG (Take, Route, Frequency, Duration) Notes Start Date End Date Status Eliquis 5 MG 1 tablet Orally Twic e a day for 30 day(s) Active Lialda 1.2 GM 2 tablets Orally Onc e a day for 90 days 02/08/2013 Active Ursodiol 250 MG one tablet Orally 4 times a day for 90 days Active Alendronate Sodium 70 MG Oral for 90 Active Gabapentin 100 MG TAKE 1 CAPSULE BY [facility] 3 TIMES A DAY Oral for 30 Active VITAL SIGNS BMI 20.54 kg/m2 05/10/2024 Blood pressure systolic 000 mm Hg 05/10/20 24 Blood pressure diastolic 00 mm Hg 024 Height 65.50 in 05/10/2024 Temperature 98.0 degrees Fahrenheit 05/10/20 24 Weight 125 lb 6 oz lbs 05/10/2024 Encounters Encounter Location Date Provider Diagnosis [facility] [address] [place] [address] 05/10/2024 Lacho Eagle Jr Sclerosing cholangitis K83.09 and Ulcerative pancolitis without complication K51.00 ASSESSMENTS Encounter Date Diagnosis Assessment Notes Treatment Notes Treatment Clinical Notes 05/10/2024 Sclerosing cholangitis (ICD-10 - K83.09) Liver disease - resources material was printed 05/10/2024 Ulcerative pancolitis without complication (ICD-10 - K51.00) PLAN OF TREATMENT Treatment Notes Assessment Notes Sclerosing cholangitis Liver disease - r esources material was printed Pending Test Test Name Order Date LIVER PROFILE 05/10/2024 AMMONIA 05/10/2024 Next Appt Details Follow Up: 1 Year, Reason: Provider Name:Lacho funes Jr, 03/23/2025 09:40:00 AM, [address], [address], [place], [phone],
--- OUTSIDE RECORDS SUMMARY | 2024-10-19 08:05 | XMS_ITS | Patient Health Record ---
Author Organization [facility] Address [address] [place] [address] Care Team Providers Care Senior Java J2Ee Developer Name Role Phone Alfonso Sierra MD Primary Care Provider Lacho Zhou Jr Unavailable ALLERGIES No Known Allergies RESULTS Component Value Reference Range Notes Liver Fibrosis Pnl Reviewed date:05/21/2024 07:37:30 AM Interpretation: Performing Lab:[facility], [address] [place] [phone] Notes/Report: Liver Fibrosis Score 0.42 Liver Fibrosis [...] a>0.62 and a<=1.00 : A3 (severe activity) JKE-Rlufj-1-Macroglobulin 171 106-279 mg/dL FIB-Haptoglobin 136 43-212 mg/dL FIB-Apolipoprotein A1 110 94-176 mg/dL FIB-Total Bilirubin 1.0 0.2-1.2 mg/dL FIB-GGT 130 3-90 U/L FIB-ALT 107 9-46 U/L Reference ID [id number] Footnote SEE NOTE The reliability of results is dependent on compliance with the preanalytical and analytical conditions recommended by [employer]. The tests have to be deferred for: [...] The performance characteristics have been determined by [facility]. It has not been cleared or approved by the U.S. Food and Drug Administration. Performance characteristics refer to the analytical performance of the test. iFit, the associated logo, [employer] and all associated [employer] carson are the registered trademarks of [employer]. All third libertarian carson - (R) and (TM) - are the property of their respective owners. (C) 4097-9399 [employer]. All rights reserved. THIS TEST WAS PERFORMED AT: [employer] [facility] [address] [place] [address] RUBINA OWENS MD,PHD,LATANYA Liver Panel Reviewed date:05/13/2024 11:22:38 AM Interpretation: Performing Lab:[facility], [address] [place] [phone] Notes/Report: Bilirubin Total 1.1 0.0-1.0 mg/dL Bilirubin Direct 0.4 0.0-0.5 mg/dL Aspartate Amino Transferase 70 5-37 U/L Alanine Aminotransferase 126 0-40 U/L Total Protein 7.7 6.5-8.0 g/dL Albumin Level 4.3 3.5-5.0 g/dL Alkaline Phosphatase 366 39-117 U/L Ammonia Reviewed date:05/13/2024 11:22:59 AM Interpretation: Performing Lab:[facility], [address] [place] [phone] Notes/Report: Ammonia < 14 13-55 umol/L REASON FOR REFERRAL No Information MEDICATIONS Medication SIG (Take, Route, Frequency, Duration) [...] Gabapentin 100 MG TAKE 1 CAPSULE BY [facility] [place] 3 TIMES A DAY Oral for 30 Active IMMUNIZATIONS Vaccine Route Administration Date Status Comme nts Influenza Unknown 01/07/2019 Refused Influenza Unknown 10/30/2022 Refused Influenza Unknown 03/22/2024 Refused SOCIAL HISTORY Sex Assigned At : Social History Observation Description Sex Assigned At Unknown PROBLEMS Problem Type ICD Code Onset Dates Problem Status W/U Status Risk SNOMED Code Notes Problem Ulcerative pancolitis without complication (K51.00) Active confirmed 327189341 Problem Ulcerative pancolitis (K51.00) Active confirmed Ulcerative pancolitis (181729227) Problem Ulcerative colitis, unspecified (K51.90) Active confirmed Ulcerative colitis (46889413) Problem 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 537567717 Problem Sclerosing cholangitis (K83.09) Active confirmed 825809683 VITAL SIGNS Temperature 98.0 degrees Fahrenheit 05/10/2024 Blood pressure diastolic 00 mm Hg 05/10/2024 Height 65.50 in 05/10/2024 Blood pressure systolic 000 mm Hg 05/10/2024 Weight 125 lb 6 oz lbs 05/10/2024 BMI 20.54 kg/m2 05/10/2024 Encounters Encounter Location Date Provider Diagnosis [facility] [address] [place] [phone] 03/22/2024 Lacho Eagle Jr Ulcerative pancolitis K51.00 and Sclerosing cholangitis K83.09 [facility] [address] [place] [phone] 04/29/2024 Lacho Eagle Jr [facility] [address] [place] [phone] 05/10/2024 Lacho Eagle Jr Sclerosing cholangitis K83.09 and Ulcerative pancolitis without complication K51.00 [facility] [address] [place] [phone] 03/30/2024 Lacho Eagle Jr Primary sclerosing cholangitis 576.1 and Unspecified ulcerative colitis 556.9 [facility] [address] [place] [phone] 04/28/2024 Lacho Eagle Jr [facility] [address] [place] [phone] 05/21/2024 Lacho Eagle Jr ASSESSMENTS Encounter Date Diagnosis Assessment Notes Treatment Notes Treatment Clinical Notes 03/22/2024 Ulcerative pancolitis (ICD-10 - K51.00) 03/22/2024 Sclerosing cholangitis (ICD-10 - K83.09) 05/10/2024 Ulcerative pancolitis without complication (ICD-10 - K51.00) 05/10/2024 Sclerosing cholangitis (ICD-10 - K83.09) Liver disease - resources material was printed 03/30/2024 Primary sclerosing cholangitis (ICD9-CM - 576.1) 03/30/2024 Unspecified ulcerative colitis (ICD9-CM - 556.9) PLAN OF TREATMENT Pending Test Test Name Order Date LIVER PROFILE 10/30/2022 LIVER PROFILE 05/10/2024 LIVER PROFILE 03/22/2024 LIVER PROFILE 09/10/2013 LIVER PROFILE 08/02/2015 AMMONIA 05/10/2024 CBC w/o DIFF 10/30/2022 CBC w/o DIFF 03/22/2024 PROTHROMBIN TIME (PT, INR) 10/30/2022 PROTHROMBIN TIME (PT, INR) 03/22/2024 US ABD 03/22/2024 US ABD 10/30/2022 Liver Fibrosis Pnl 10/30/2022 Liver Fibrosis Pnl 03/22/2024 Future Test Test Name Order Date LIVER PROFILE 03/30/2012 CBC w DIFF 03/30/2012 PROTHROMBIN TIME (PT, INR) 03/30/2012 COLONOSCOPY 01/07/2019 COLONOSCOPY 10/30/2022 Next Appt Details Provider Name:Lacho funes Jr, 03/23/2025 09:40:00 AM, [address] [place] [address], [address], [place], [address], Insurance Providers Payer Name Payer Address Payer Phone Subscriber Number Group Number Insured Name Patient Relationship to Insured Coverage Start Date Coverage End Date [facility] [employer] [facility] [address] [address] [place], [place] [id number] GEORGE PATINO Self - patient is the insured [facility] [address] [place], [place] [id number] GEORGE PATINO Self - patient is the insured MEDICAL (GENERAL) HISTORY Medical History History ICD Code primary sclerosing cholangitis ulcerative colitis, diagnosi s 08/11, current treatment Lialda, colonoscopy 12/26, no active colitis on biopsies, three-year followup spinal fractures surgery february 04, 2023 Pulmonary embolus Surgical History Surgery Date(Month/Year) Right inguinal herniorrhaphy 04/2017 spinal fracures 02/2023
--- OUTSIDE RECORDS SUMMARY | 2024-10-19 08:05 | XMS_ITS ---
Author Organization [facility] Address [address] [place] [address] Care Team Providers Care Manager Agricultural Name Role Phone Alfonso Sierra MD Primary Care Provider Krystyna Eagle Jr, Lacho Dixon [phone] REASON FOR VISIT labs Encounters Encounter Location Date Provider Diagnosis [facility] [address] [facility] [address] [place] [address] 05/21/2024 Lacho Eagle Jr PLAN OF TREATMENT Next Appt Details Provider Name:Lacho funes Jr, 03/23/2025 09:40:00 AM, [address] [facility], [address], [place], [address],
--- OUTSIDE RECORDS SUMMARY | 2024-10-19 08:05 | XMS_ITS ---
Author Organization [facility] Address [address] [place] [address] Care Team Providers Care Scleroscope Tester Name Role Phone Alfonso Sierra MD Primary Care Provider Krystyna Eagle Jr, Lacho Dixon REASON FOR VISIT elevated ammonia level Encounters Encounter Location Date Provider Diagnosis [facility] [address] [facility] [address] [place] [address] 04/29/2024 Lacho Eagle Jr PLAN OF TREATMENT Next Appt Details Provider Name:Lacho funes Jr, 03/23/2025 09:40:00 AM, [address] [facility], [address], [place], [phone],
--- OUTSIDE RECORDS SUMMARY | 2024-10-19 08:05 | XMS_ITS ---
Author Organization Alfonso Sierra MD Address [address] [place] [phone] Care Team Providers Care Educational Diagnostician Name Role Phone Alfonso Sierra Primary Care Provider ALLERGIES No Known Allergies REASON FOR VISIT F/U ERV seizure new med Keppra, go over ct chest with patient, explain about ABD us, not booked yet MEDICATIONS Medication SIG (Take, Route, Fr equency, [...] e a day for 90 days Active PROBLEMS Problem Type ICD Code Onset Dates Problem Status W/U Status Risk SNOMED Code Notes Problem Other ascites (R18.8) Active confirmed Ascites (729157716) VITAL SIGNS BMI 21.80 kg/m2 10/14/2024 Blood pressure systolic 82 mm Hg 12/12/20 24 Blood pressure diastolic 58 mm Hg 024 Height 64 in 10/14/2024 Weight 127 lbs 10/14/2024 Encounters Encounter Location Date Provider Diagnosis Alfonso Sierra MD [address] [place] [address] [place] [phone] 10/14/2024 Alfonso Sierra Seizure disorder G40.909 ; 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 and Other ascites R18.8 ASSESSMENTS Encounter Date Diagnosis Assessment Notes Treatment Notes Treatment Clinical Notes 10/14/2024 Seizure disorder (ICD-10 - G40.909) just started keppra/ going to see dr chatman 10/14/2024 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) will goe us of abdomen to see if there is ascites, pending diagnostic testing 10/14/2024 Other ascites (ICD-10 - R18.8) PLAN OF TREATMENT Treatment Notes Assessment Notes Seizure disorder just started keppra/ going to see dr chatman Primary sclerosing cholangitis will goe us of abdomen to see if there is ascites, pending diagnostic testing Pending Test Test Name Order Date US ABD 10/14/2024 Next Appt Details Follow Up: 4 Weeks, Reason: Provider Name:Alfonso martinez, 11/16/2024 11:15:00 AM, [address] [place] [address], [address], [phone], Provider Name:Alfonso martinez, 03/10/2025 07:45:00 AM, [address] [place] [address], [address], [phone], Provider Name:Alfonso martinez, 03/17/2025 11:00:00 AM, [address] [place] [address], [address], [phone], Progress Notes * Examination Category Sub-Category Detail Notes General Examination GENERAL APPEARANCE: well dev eloped, well nourished HEART: no murmurs, rubs, ga llops , regular rate and rhythm LUNGS: no wheezes, rales, r honchi , good air movement , clear to auscultation bilaterally SKIN: good turgor
--- OUTSIDE RECORDS SUMMARY | 2024-10-19 08:06 | XMS_ITS | Continuity of Care Document ---
Author Organization [facility] Address [address] [facility] [address] [place] [address] Phone [phone] Social History Type Date Description Comments Sex Unknown Medical Devices Description No Information Available Encounters Description No Information Available Assessments Description No Information Available Plan of Treatment No Information Available Functional Status Description No Information Available Mental Status Description No Information Available Referrals Description No Information Available
--- OUTSIDE RECORDS SUMMARY | 2024-10-19 08:06 | XMS_ITS | Patient Health Record ---
Author Organization Alfonso Sierra MD Address [address] [place], [place] [id number] Care Team Providers [employer] Name Role Phone Rigo Alfonso Primary Care Provider ALLERGIES No Known Allergies RESULTS Component Value Reference Range Notes Complete Blood Count Auto Di ff Reviewed date:01/11/2024 01:28:45 PM Interpretation: Performing Lab:[facility], [address] [place] [phone] Notes/Report: White Blood Count 7.0 4.8-10.8 X10*3/uL [...] NRBC Abs Auto 0.000 0.0-0.012 X10*3/uL Comprehensive [place]. Panel Fa st Reviewed date:01/11/2024 01:28:24 PM Interpretation: Performing Lab:[facility], [address] [place] [phone] Notes/Report: Sodium 139 135-145 mmol/L Potassium 4.1 3.3-5.1 mmol/L Chloride 101 96-108 mmol/L Carbon Dioxide 31 22-29 mmol/L Anion Gap 11 12-20 Blood Urea Nitrogen 13 9-16 mg/dL Creatinine 0.73 0.5-1.4 mg/dL Estimated Glomerular Filt Rate > 60 NOTE: For -Ugandan individuals, multiply the result by 1.210. Chronic [...] date:01/15/2024 11:36:33 AM Interpretation: Performing Lab: Notes/Report: [address] [address] Magnetic Resonance Report Signed Patient: Javi Smith MR#: [id number] 8 : 1985 Acct:[id number] Age/Sex: 38 / M ADM Date: 01/10/24 Loc: HO.MRI Attending Dr: Vasu LEE Ordering Physician: Vasu Nevarez Date of Service: 01/10/24 Procedure(s): MR lumbar spine wo con Accession Number(s): [id number] cc: Alfonso Sierra MD; Vasu Nevarez EXAMINATION: [...] in OV> 01/15/24 1002 DD/ 1120 TD/TT: Drywall Installer: MR thoracic spine wo con Reviewed date:01/15/2024 11:37:05 AM Interpretation: Performing Lab: Notes/Report: [address] [address] Magnetic Resonance Report Signed Patient: Javi Smith MR#: [id number] 8 : 1985 Acct:[id number] Age/Sex: 38 / M ADM Date: 01/10/24 Loc: HO.MRI Attending Dr: Vasu LEE Ordering Physician: Vasu Nevarez Date of Service: 01/10/24 Procedure(s): MR thoracic spine wo con Accession Number(s): [id number] cc: Alfonso Sierra MD; Vasu Nevarez EXAMINATION: [...] in OV> 01/15/24 1002 DD/ 1035 TD/TT: Drywall Installer: XR DEXA axial skeleton Reviewed date:01/15/2024 02:37:38 PM Interpretation: Performing Lab: Notes/Report: [facility] [place] [address] Mammography Report Signed Patient: Javi Smith MR#: [id number] 8 : 1985 Acct:[id number] Age/Sex: 38 / M ADM Date: 01/14/24 Loc: HO.MAMMO Attending Dr: Boo Foster MD Ordering Physician: Boo Foster MD Results: Date of Service: 01/14/24 Follow Up: Procedure(s): XR DEXA axial skeleton Accession Number(s): [id number] cc: Alfonso Sierra MD; Boo Foster MD EXAMINATION: BONE DENSITOMETRY CLINICAL INDICATION: Collapsed vertebra, not elsewhere classified, site unspecified. COMPARISON: This is the patient's baseline examination. TECHNIQUE: Using a [employer] DXA System (software version: 13.1) manufactured by [employer], dual-energy x-ray absorptiometry was performed of the [...] in OV> 01/15/24 1343 DD/ 1415 TD/TT: Drywall Installer: FIDE MRSA Nasal Screen Reviewed date:02/05/2024 04:08:36 PM Interpretation: Performing Lab:[facility], [address] [place] [phone] Notes/Report: MRSA Nasal PCR NEGATIVE Negative SA Nasal PCR NEGATIVE Negative MRSA Interpretation SEE NOTE MRSA target DNA not detected; SA target DNA not detected. A MRSA NEGATIVE, SA NEGATIVE test result does not preclude MRSA or SA nasal colonization. FL guidance in OR Reviewed date:02/17/2024 12:21:29 PM Interpretation: Performing Lab: Notes/Report: [address] [address] Fluoroscopy Report Signed Patient: Javi Smith MR#: [id number] 8 : 1985 Acct:[id number] Age/Sex: 39 / M ADM Date: 02/05/24 Loc: HO.SSS Attending Dr: Boo Foster MD Ordering Physician: Boo Foster MD Date of Service: 02/05/24 Procedure(s): FL guidance in OR Accession Number(s): [id number] cc: Alfonso Sierra MD; Boo Foster MD [...] in OV> 02/17/24 1105 DD/ 1640 TD/TT: Drywall Installer: BRANDIE Lundberg Reviewed date:03/04/2024 12:27:11 PM Interpretation: Performing Lab:[facility], [address] [place] [phone] Notes/Report: Jonathan Lundberg See Note Specimen held untested for 24 hours; Call to request Chemistry testing. Complete Blood Count Auto Di ff Reviewed date:03/04/2024 12:49:25 PM Interpretation: Performing Lab:[facility], [address] [place] [phone] Notes/Report: White Blood Count 5.0 4.8-10.8 X10*3/uL [...] NRBC Abs Auto 0.000 0.0-0.012 X10*3/uL Comprehensive [place]. Panel Fa st Reviewed date:03/04/2024 12:49:42 PM Interpretation: Performing Lab:[facility], [address] [place] [address], [place] [address] Notes/Report: Sodium 138 135-145 mmol/L Potassium 4.0 3.3-5.1 mmol/L Chloride 103 96-108 mmol/L Carbon Dioxide 26 22-29 mmol/L Anion Gap 13 12-20 Blood Urea Nitrogen 15 9-16 mg/dL Creatinine 0.69 0.5-1.4 mg/dL Estimated Glomerular Filt Rate > 60 NOTE: For -Ugandan individuals, multiply the result by 1.210. Chronic [...] Panel Reviewed date:03/04/2024 12:33:37 PM Interpretation: Performing Lab:[address] [phone] Notes/Report: Triglycerides 85 <150 mg/dL Desirable Triglyceride: [...] t Reviewed date:03/04/2024 12:50:46 PM Interpretation: Performing Lab:[address] [address] Notes/Report: Urine, Clean Catch Color Urine Dark Yellow Appearance Urine Clear PH 6.0 5.0-9.0 Glucose Urine UA Negative Negative mg/dL Urine Blood Negative Negative Specific Quinn - Urine >= 1.030 1.005-1.025 Urine Protein Negative Neg-Trace mg/dL Urine Ketones Negative Negative mg/dL Nitrite Urine Negative Negative Leukocyte Esterase Urine Negative Negative RBC Urine 0-2 0-2 /HPF WBC Urine 0-5 0-5 /HPF Squamous Epithelial Cell Urine 0-2 0-2 /HPF Bacteria Urine None Seen None Seen Hyaline Casts Urine 0-2 0-2 /LPF Hold Green Gel Reviewed date:03/11/2024 05:09:57 PM Interpretation: Performing Lab:[facility], [address] [place] [phone] Notes/Report: Hold Green Gel See Note Specimen held untested for 24 hours; Call to request Chemistry testing. PSA,Total (Free>4and<10) Reviewed date:03/12/2024 08:18:53 AM Interpretation: Performing Lab:[facility], [address] [place] [phone] Notes/Report: PSA,Total (Free>4and<10) 0.99 0.00-4.00 ng/mL A [...] ff Reviewed date:03/30/2024 12:24:52 PM Interpretation: Performing Lab:[facility], [address] [place] [phone] Notes/Report: White Blood Count 15.1 4.8-10.8 X10*3/uL [...] CBC Reviewed date:03/30/2024 12:24:29 PM Interpretation: Performing Lab:[address] [address] Notes/Report: Pathologist Review - CBC SEE NOTE White blood cells are increased in number and consist mostly of mature granulocytes; rare left-shifted forms with toxic vacuoles are seen. - Alec Bryant M.D. Pathology Prothrombin Time INR Reviewed date:03/29/2024 01:42:16 PM Interpretation: Performing Lab:[facility], [address] [place] [phone] Notes/Report: Prothrombin Time 12.1 11.1-13.3 SEC INTERNATIONAL [...] Time Reviewed date:03/29/2024 01:45:49 PM Interpretation: Performing Lab:[facility], [address] [place] [phone] Notes/Report: Partial Thromboplastin Time 34.0 26.0-36.8 SEC For information regarding the monitoring of direct thrombin inhibitors, please refer to Pharmacy. Hold Lt Blue - Possible Coag Reviewed date:03/29/2024 01:32:57 PM Interpretation: Performing Lab:[facility], [address] [place] [phone] Notes/Report: Hold Lt Blue - Possible Coag SEE NOTE Specimen will be held untested for 4 hours. Call Hematology if testing is desired. Comprehensive Met. Panel Reviewed date:03/30/2024 08:40:41 AM Interpretation: Performing Lab:[facility], [address] [place] [phone] Notes/Report: Sodium 146 135-145 mmol/L Potassium 3.3 [...] Glomerular Filt Rate > 60 NOTE: For -Ugandan individuals, multiply the result by 1.210. Chronic [...] Acid Reviewed date:03/29/2024 01:32:21 PM Interpretation: Performing Lab:[facility], [address] [place] [phone] Notes/Report: Lactic Acid 15.2 0.5-2.0 mmol/L Critical value for test LACTIC: Results called to and read back by: FLEMINK Person calling: GALENSA Date: 03/28/24 Time: 1058 Magnesium Reviewed date:03/29/2024 01:38:27 PM Interpretation: Performing Lab:[facility], [address] [place] [phone] Notes/Report: Magnesium 2.3 1.6-2.6 mg/dL Ammonia Reviewed date:03/29/2024 01:30:42 PM Interpretation: Performing Lab:[facility], [address] [place] [phone] Notes/Report: Ammonia 175 13-55 umol/L Glucose, Whole Blood Reviewed date:03/29/2024 01:32:34 PM Interpretation: Performing Lab:[facility], [address] [place] [phone] Notes/Report: Glucose, Whole Blood 121 60-115 mg/dL METER # : [id number] Drug Screen Urine Reviewed date:03/29/2024 01:30:20 PM Interpretation: Performing Lab:[facility], [address] [place] [phone] Notes/Report: Opiate Screen Urine Not Detected Not [...] Culture Reviewed date:03/30/2024 12:25:06 PM Interpretation: Performing Lab:[facility], [address] [place] [phone] Notes/Report: Urine Culture No growth. SARS-CoV2/FLU/RSV Reviewed date:03/29/2024 01:30:56 PM Interpretation: Performing Lab:[facility], [address] [place] [phone] Notes/Report: Influenza A PCR NEGATIVE Negative Influenza [...] by authorized laboratories. Testing performed on the [employer] GeneXpert utilizing real-time RT-PCR. All SARS CoV2 and positive influenza A/B results are reported to [facility]. Blood Culture (First) Reviewed date:03/31/2024 04:43:32 PM Interpretation: Performing Lab:[facility], [address] [place] [phone] Notes/Report: Blood Culture (First) BC Positive/Drawn Results [...] (Second) Reviewed date:03/31/2024 04:43:32 PM Interpretation: Performing Lab:[facility], [address] [place] [phone] Notes/Report: Blood Culture (Second) Results of Blood [...] (Second) Gram stain review ed by a Nut Sorter Operator Results of Blood Culture gram stain sent [...] ONLY Reviewed date:03/29/2024 01:31:10 PM Interpretation: Performing Lab:[facility], [address] [place] [phone] Notes/Report: Lactic Acid-LAB USE ONLY 1.1 0.5-2.0 mmol/L UA ClnCatch+Micro w/rflx Cul t Reviewed date:03/30/2024 12:44:37 PM Interpretation: Performing Lab:[facility], [address] [place] [phone] Notes/Report: [id number] 1123 Urine, Catheterized Color Urine Dark Yellow Appearance Urine Clear PH 6.0 5.0-9.0 Glucose Urine UA Negative Negative mg/dL Urine Blood Negative Negative Specific Quinn - Urine >= 1.030 1.005-1.025 Urine Protein [...] POC Reviewed date:03/29/2024 01:29:51 PM Interpretation: Performing Lab:[facility], [address] [place] [phone] Notes/Report: VBG pH 6.96 7.32-7.43 METER #: [id number] additional_comment: nabil robbins flemink VBG pCO2 64 METER #: [id number] additional_comment: nabil robbins flemink VBG pO2 60 METER #: [id number] additional_comment: nabil robbins flemink VBG Base Excess -18.2 METER #: [id number] additional_comment: nabil robbins flemink VBG HCO3 14 22-26 mmol/L METER #: [id number] additional_comment: nabil robbins flemink VBG O2 % Saturation 72.0 METER #: [id number] additional_comment: nabil robbins flemink Hold Green Gel Reviewed date:03/29/2024 01:32:47 PM Interpretation: Performing Lab:[facility], [address] [place] [phone] Notes/Report: Hold Green Gel See Note Specimen held untested for 24 hours; Call to request Chemistry testing. CT thoracic spine w con Reviewed date:03/29/2024 01:35:31 PM Interpretation: Performing Lab: Notes/Report: [address] [address] [address] Scan Report Signed Patient: Javi Smith MR#: [id number] 8 : 1985 Acct:[id number] Age/Sex: 39 / M ADM Date: 03/28/24 Loc: HO.ED Attending Dr: Ordering Physician: Nita Garza Date of Service: 03/28/24 Procedure(s): CT thoracic spine w IV con Accession Number(s): [id number] cc: Alfonso Sierra MD; Nita Garza EXAMINATION: [...] in OV> 03/28/24 1437 DD/ 1153 TD/TT: Drywall Installer: MARLY CT lumbar spine w con Reviewed date:03/29/2024 01:25:55 PM Interpretation: Performing Lab: Notes/Report: [address] [address] [address] Scan Report Signed Patient: Javi Smith MR#: [id number] 8 : 1985 Acct:[id number] Age/Sex: 39 / M ADM Date: 03/28/24 Loc: HO.ED Attending Dr: Ordering Physician: Nita Garza Date of Service: 03/28/24 Procedure(s): CT lumbar spine w IV con Accession Number(s): [id number] cc: Alfonso Sierra MD; Nita Garza EXAMINATION: [...] in OV> 03/28/24 1437 DD/ 1153 TD/TT: Drywall Installer: MARLY CT cervical spine wo con Reviewed date:03/29/2024 01:34:23 PM Interpretation: Performing Lab: Notes/Report: [address] [address] [address] Scan Report Signed Patient: Javi Smith MR#: [id number] 8 : 1985 Acct:[id number] Age/Sex: 39 / M ADM Date: 03/28/24 Loc: HO.ED Attending Dr: Ordering Physician: Nita Garza Date of Service: 03/28/24 Procedure(s): CT cervical spine wo IV con Accession Number(s): [id number] cc: Alfonso Sierra MD; Nita Garza EXAMINATION: [...] in OV> 03/28/24 1218 DD/ 1153 TD/TT: Drywall Installer: CT head/brain wo con Reviewed date:03/29/2024 01:34:51 PM Interpretation: Performing Lab: Notes/Report: [address] [address] [address] Scan Report Signed Patient: Javi Smith MR#: [id number] 8 : 1985 Acct:[id number] Age/Sex: 39 / M ADM Date: 03/28/24 Loc: HO.ED Attending Dr: Ordering Physician: Ntia Garza Date of Service: 03/28/24 Procedure(s): CT head/brain wo IV con Accession Number(s): [id number] cc: Alfonso Sierra MD; Nita Garza EXAMINATION: [...] in OV> 03/28/24 1218 DD/ 1153 TD/TT: Drywall Installer: US abdomen limited Reviewed date:03/29/2024 01:36:52 PM Interpretation: Performing Lab: Notes/Report: [address] [address] Ultrasound Report Signed Patient: Javi Smith MR#: [id number] 8 : 1985 Acct:[id number] Age/Sex: 39 / M ADM Date: 03/28/24 Loc: HO.ED Attending Dr: Ordering Physician: Nita Garza Date of Service: 03/28/24 Procedure(s): US abdomen limited Accession Number(s): [id number] cc: Alfonso Sierra MD; Nita Garza EXAMINATION: [...] in OV> 03/28/24 1322 DD/ 1230 TD/TT: Drywall Installer: HS XR chest 1V Reviewed date:03/29/2024 01:31:39 PM Interpretation: Performing Lab: Notes/Report: [place] [address] XRay Report Signed Patient: Javi Smith MR#: [id number] 8 : 1985 Acct:[id number] Age/Sex: 39 / M ADM Date: 03/28/24 Loc: HO.ED Attending Dr: Ordering Physician: Nita Garza Date of Service: 03/28/24 Procedure(s): XR chest 1V Accession Number(s): [id number] cc: Alfonso Sierra MD; Nita Garza EXAMINATION: [...] in OV> 03/28/24 1248 DD/ 1152 TD/TT: Drywall Installer: XR lumbar spine 2-3V Reviewed date:03/29/2024 01:41:09 PM Interpretation: Performing Lab: Notes/Report: [address] [address] XRay Report Signed Patient: Javi Smith MR#: [id number] 8 : 1985 Acct:[id number] Age/Sex: 39 / M ADM Date: 03/28/24 Loc: HO.ED Attending Dr: Ordering Physician: Generic ED Physician Date of Service: 03/28/24 Procedure(s): XR lumbar spine 2-3V Accession Number(s): [id number] cc: Alfonso Sierra MD; Generic ED Physician [...] in OV> 03/28/24 1019 DD/ 1000 TD/TT: Drywall Installer: Complete Blood Count no Diff Reviewed date:03/30/2024 12:44:16 PM Interpretation: Performing Lab:[facility], [address] [place] [phone] Notes/Report: White Blood Count 13.0 4.8-10.8 X10*3/uL [...] Panel Reviewed date:03/29/2024 01:46:19 PM Interpretation: Performing Lab:[facility], [address] [place] [phone] Notes/Report: Sodium 140 135-145 mmol/L Potassium 4.2 [...] Glomerular Filt Rate > 60 NOTE: For -Ugandan individuals, multiply the result by 1.210. Chronic [...] Ammonia Reviewed date:03/29/2024 01:28:35 PM Interpretation: Performing Lab:[address] [phone] Notes/Report: Ammonia 50 13-55 umol/L Complete Blood Count no Diff Reviewed date:03/30/2024 09:06:07 AM Interpretation: Performing Lab:[address] [phone] Notes/Report: White Blood Count 15.1 4.8-10.8 X10*3/uL [...] Panel Reviewed date:03/30/2024 08:39:40 AM Interpretation: Performing Lab:[address] [phone] Notes/Report: Bilirubin Total 1.9 0.0-1.0 mg/dL Bilirubin Direct 0.7 0.0-0.5 mg/dL Aspartate Amino Transferase 51 5-37 U/L Alanine Aminotransferase 106 0-40 U/L Total Protein 8.5 6.5-8.0 g/dL Albumin Level 4.4 3.5-5.0 g/dL Alkaline Phosphatase 424 39-117 U/L Basic Metabolic Panel Fastin g Reviewed date:03/30/2024 12:41:10 PM Interpretation: Performing Lab:[facility], [address] [place] [phone] Notes/Report: Sodium 141 135-145 mmol/L Potassium 4.1 [...] Glomerular Filt Rate > 60 NOTE: For -Ugandan individuals, multiply the result by 1.210. Chronic Kidney Disease: Estimated GFR < 60 mL/min/1.73m2 Severe Kidney Disease: Estimated GFR < 15 mL/min/1.73m2 Glucose Fasting 186 60-99 mg/dL A fasting glucose of 126 mg/dl or greater on more than one occasion is considered diagnostic of diabetes. Calcium 10.7 8.4-10.2 mg/dL Lactic Acid Reviewed date:03/30/2024 08:39:18 AM Interpretation: Performing Lab:[facility], [address] [place] [phone] Notes/Report: Lactic Acid 2.7 0.5-2.0 mmol/L Critical lactic sent by a secure message and confirmed by tay anthony 03/30/24 0823 Tech: [email or web address] Magnesium Reviewed date:03/30/2024 08:40:19 AM Interpretation: Performing Lab:[address] [address] Notes/Report: Magnesium 2.3 1.6-2.6 mg/dL Ammonia Reviewed date:03/30/2024 08:42:38 AM Interpretation: Performing Lab:[address] [address] Notes/Report: Ammonia 70 13-55 umol/L Lipase Reviewed date:03/30/2024 08:40:07 AM Interpretation: Performing Lab:[facility], [address] [place] [phone] Notes/Report: Lipase 11 8-78 U/L Blood Culture (First) Reviewed date:04/04/2024 06:08:26 PM Interpretation: Performing Lab:[facility], [address] [place] [phone] Notes/Report: Blood Culture (First) No growth after 5 days. Blood Culture (Second) Reviewed date:04/04/2024 06:08:26 PM Interpretation: Performing Lab:[facility], [address] [place] [phone] Notes/Report: Blood Culture (Second) No growth after 5 days. Lactic Acid-LAB USE ONLY Reviewed date:03/30/2024 12:20:53 PM Interpretation: Performing Lab:[facility], [address] [place] [phone] Notes/Report: Lactic Acid-LAB USE ONLY 2.9 0.5-2.0 mmol/L Critical lactic sent by a secure message and confirmed by Tay Anthony 1044 03/30/24 Tech: natan Cancel Lactic Acid Reviewed date:03/30/2024 12:12:11 PM Interpretation: Performing Lab:[facility], [address] [place] [phone] Notes/Report: Cancel Lactic Acid Canceled Gastric Occult Blood Test Reviewed date:03/30/2024 08:42:53 AM Interpretation: Performing Lab:[facility], [address] [place] [phone] Notes/Report: Occult Blood Gastric POSITIVE NEG CT abdomen pelvis w con Reviewed date:03/30/2024 12:14:13 PM Interpretation: Performing Lab: Notes/Report: [address] [place] [address] CT Scan Report Signed Patient: Javi Smith MR#: [id number] 8 : 1985 Acct:[id number] Age/Sex: 39 / M ADM Date: 03/28/24 Loc: [facility] 474-[address]: Tay Anthony MD Ordering Physician: Maritza Etienne MD Date of Service: 03/30/24 Procedure(s): CT abdomen pelvis w IV con Accession Number(s): [id number] cc: Alfonso Sierra MD; Maritza Etienne MD [...] in OV> 03/30/24 1052 DD/ 1014 TD/TT: Drywall Installer: XR chest 1V Reviewed date:03/31/2024 04:43:32 PM Interpretation: Performing Lab: Notes/Report: [place] [address] XRay Report Signed Patient: Javi Smith MR#: [id number] 8 : 1985 Acct:[id number] Age/Sex: 39 / M ADM Date: 03/28/24 Loc: [facility] 474-[address]: Tay Anthony MD Ordering Physician: Tay Anthony MD Date of Service: 03/30/24 Procedure(s): XR chest 1V Accession Number(s): [id number] cc: Alfonso Sierra MD; Tay Anthony MD [...] MD in OV> 03/30/242100 DD/ 49 TD/TT: Drywall Installer: Complete Blood Count no Diff Reviewed date:03/31/2024 04:43:32 PM Interpretation: Performing Lab:[facility], [address] [place] [phone] Notes/Report: White Blood Count 15.1 4.8-10.8 X10*3/uL [...] ff Reviewed date:03/31/2024 04:43:32 PM Interpretation: Performing Lab:[facility], [address] [place] [phone] Notes/Report: White Blood Count 14.0 4.8-10.8 X10*3/uL [...] Panel Reviewed date:03/31/2024 04:43:32 PM Interpretation: Performing Lab:[facility], [address] [place] [phone] Notes/Report: Sodium 141 135-145 mmol/L Potassium 4.3 [...] Glomerular Filt Rate > 60 NOTE: For -Ugandan individuals, multiply the result by 1.210. Chronic [...] Panel Reviewed date:03/31/2024 04:43:32 PM Interpretation: Performing Lab:[facility], [address] [place] [phone] Notes/Report: Bilirubin Total 2.0 0.0-1.0 mg/dL Bilirubin Direct 0.7 0.0-0.5 mg/dL Aspartate Amino Transferase 63 5-37 U/L Alanine Aminotransferase 80 0-40 U/L Total Protein 8.1 6.5-8.0 g/dL Albumin Level 4.2 3.5-5.0 g/dL Alkaline Phosphatase 337 39-117 U/L Basic Metabolic Panel Reviewed date:03/31/2024 04:43:32 PM Interpretation: Performing Lab:[facility], [address] [place] [phone] Notes/Report: Sodium 143 135-145 mmol/L Potassium 4.4 [...] Glomerular Filt Rate > 60 NOTE: For -Ugandan individuals, multiply the result by 1.210. Chronic Kidney Disease: Estimated GFR < 60 mL/min/1.73m2 Severe Kidney Disease: Estimated GFR < 15 mL/min/1.73m2 Glucose Random 129 60-115 mg/dL Calcium 10.5 8.4-10.2 mg/dL Basic Metabolic Panel Fastin g Reviewed date:03/31/2024 04:43:32 PM Interpretation: Performing Lab:[facility], [address] [place] [phone] Notes/Report: Sodium 141 135-145 mmol/L Potassium 4.5 [...] Glomerular Filt Rate > 60 NOTE: For -Ugandan individuals, multiply the result by 1.210. Chronic Kidney Disease: Estimated GFR < 60 mL/min/1.73m2 Severe Kidney Disease: Estimated GFR < 15 mL/min/1.73m2 Glucose Fasting 147 60-99 mg/dL A fasting glucose of 126 mg/dl or greater on more than one occasion is considered diagnostic of diabetes. Calcium 10.7 8.4-10.2 mg/dL Lactic Acid Reviewed date:03/31/2024 04:43:32 PM Interpretation: Performing Lab:[facility], [address] [place] [phone] Notes/Report: Lactic Acid 2.7 0.5-2.0 mmol/L Critical [LACTA] sent by a secure message and confirmed by (ARACELI REYNOSO AND CORI REGAN [place] [id number] @[id number]) Tech:HO.[email or web address] Phosphorus Reviewed date:03/31/2024 04:43:32 PM Interpretation: Performing Lab:[facility], [address] [place] [phone] Notes/Report: Phosphorus 4.1 2.7-4.5 mg/dL Magnesium Reviewed date:03/31/2024 04:43:32 PM Interpretation: Performing Lab:[facility], [address] [place] [phone] Notes/Report: Magnesium 2.4 1.6-2.6 mg/dL Ammonia Reviewed date:03/31/2024 04:43:32 PM Interpretation: Performing Lab:[address] [address] Notes/Report: Ammonia 82 13-55 umol/L Troponin-I High Sensitivity Reviewed date:03/31/2024 04:43:32 PM Interpretation: Performing Lab:[address] [phone] Notes/Report: Troponin-I High Sensitivity 59.9 <3.5-35.0 ng/ L The [place] high sensitivity Troponin-I results should be used in conjunction with other diagnostic information such as ECG, clinical observations and information, and patient symptoms to aid in the diagnosis of [place]. B Type Natriuretic Peptide Reviewed date:03/31/2024 04:43:32 PM Interpretation: Performing Lab:[address] [address] Notes/Report: B Type Natriuretic Peptide 224 <100 pg/mL For those patients who are being treated with Natrecor (nesiritide, recombinant BNP), BNP testing should be performed at least two hours post treatment in order to ensure that only endogenous levels of BNP are detected. TSH reflex Free T4 Reviewed date:03/31/2024 04:43:32 PM Interpretation: Performing Lab:[address] [address] Notes/Report: TSH reflex Free T4 1.47 0.32-4.0 uIU/mL Vancomycin Random Reviewed date:03/31/2024 04:43:32 PM Interpretation: Performing Lab:[address] [phone] Notes/Report: Vancomycin Random 15.9 15-20 mcg/mL Lactic Acid-LAB USE ONLY Reviewed date:03/31/2024 04:43:32 PM Interpretation: Performing Lab:[address] [address] Notes/Report: Lactic Acid-LAB USE ONLY 2.3 0.5-2.0 mmol/L Critical[LACTA] sent by a secure message and confirmed by (DR.JEISA BYNUM [facility] ON [id number] @ 0310) Tech:VYASRID Venous Blood Gases - POC Reviewed date:03/31/2024 04:43:32 PM Interpretation: Performing Lab:[facility], [address] [place] [phone] Notes/Report: VBG pH 7.40 7.32-7.43 METER #: [id number] additional_comment: Nabil vital VBG pCO2 42 METER #: [id number] additional_comment: Nabil vital VBG pO2 46 METER #: [id number] additional_comment: Nabil vital VBG Base Excess 1.8 METER #: [id number] additional_comment: Nabil vital VBG HCO3 26 22-26 mmol/L METER #: [id number] additional_comment: Nabil vital VBG O2 % Saturation 76.0 METER #: [id number] additional_comment: Nabil vital Lactic Acid-LAB USE ONLY Reviewed date:03/31/2024 04:43:32 PM Interpretation: Performing Lab:[facility], [address] [place] [phone] Notes/Report: Lactic Acid-LAB USE ONLY 2.2 0.5-2.0 mmol/L Critical [LACTIC] sent by a secure message and confirmed by (Dr. Thomas, 03/31/24 0734) Tech: GALENSA Cancel Lactic Acid Reviewed date:03/31/2024 04:43:32 PM Interpretation: Performing Lab:[facility], [address] [place] [phone] Notes/Report: Cancel Lactic Acid Canceled XR KUB Reviewed date:03/31/2024 04:43:32 PM Interpretation: Performing Lab: Notes/Report: [address] [address] XRay Report Signed Patient: Javi Smith MR#: [id number] 8 : 1985 Acct:[id number] Age/Sex: 39 / M ADM Date: 03/28/24 Loc: [facility] 474-[address]: Jose Thomas MD Ordering Physician: Jose Thomas MD Date of Service: 03/31/24 Procedure(s): XR KUB Accession Number(s): [id number] cc: Jose Thomas MD; Alfonso Sierra MD EXAMINATION: XR ABDOMEN KUB CLINICAL INDICATION: Follow-up obstruction versus ileus COMPARISON: [employer] film from CT dated 03/30/2024 TECHNIQUE: AP [...] in OV> 03/31/24 1340 DD/ 1109 TD/TT: Drywall Installer: GT Magnesium Reviewed date:03/31/2024 04:43:32 PM Interpretation: Performing Lab:[address] [address] Notes/Report: Magnesium 2.5 1.6-2.6 mg/dL Complete Blood Count Auto Di ff Reviewed date:04/01/2024 07:12:33 PM Interpretation: Performing Lab:[facility], [address] [place] [phone] Notes/Report: White Blood Count 12.1 4.8-10.8 X10*3/uL [...] Panel Reviewed date:04/01/2024 07:12:33 PM Interpretation: Performing Lab:[facility], [address] [place] [phone] Notes/Report: Sodium 146 135-145 mmol/L Potassium 3.9 [...] Glomerular Filt Rate > 60 NOTE: For -Ugandan individuals, multiply the result by 1.210. Chronic [...] Magnesium Reviewed date:04/01/2024 04:52:53 PM Interpretation: Performing Lab:[facility], [address] [place] [phone] Notes/Report: Magnesium 2.3 1.6-2.6 mg/dL Complete Blood Count no Diff Reviewed date:04/01/2024 04:51:40 PM Interpretation: Performing Lab:[facility], [address] [place] [phone] Notes/Report: White Blood Count 10.4 4.8-10.8 X10*3/uL [...] gy Reviewed date:04/01/2024 12:31:19 PM Interpretation: Performing Lab:[facility], [address] [place] [phone] Notes/Report: Hold Lav - Possible Hematology SEE NOTE Specimen will be held untested for 8 hours. Call Hematology if testing is desired. Prothrombin Time INR Reviewed date:04/01/2024 07:12:33 PM Interpretation: Performing Lab:[address] [address] Notes/Report: Prothrombin Time 14.7 11.1-13.3 SEC INTERNATIONAL [...] Drip Reviewed date:04/01/2024 07:12:33 PM Interpretation: Performing Lab:[facility], [address] [place] [phone] Notes/Report: PTT Heparin Drip 29.5 53-77.9 SEC For information regarding the monitoring of heparin therapy, please refer to Pharmacy. Basic Metabolic Panel Reviewed date:04/01/2024 04:57:03 PM Interpretation: Performing Lab:[facility], [address] [place] [phone] Notes/Report: Sodium 146 135-145 mmol/L Potassium 3.8 [...] Glomerular Filt Rate > 60 NOTE: For -Ugandan individuals, multiply the result by 1.210. Chronic Kidney Disease: Estimated GFR < 60 mL/min/1.73m2 Severe Kidney Disease: Estimated GFR < 15 mL/min/1.73m2 Glucose Random 133 60-115 mg/dL Calcium 9.5 8.4-10.2 mg/dL Creatinine Reviewed date:04/01/2024 04:50:56 PM Interpretation: Performing Lab:[facility], [address] [place] [phone] Notes/Report: Creatinine 0.86 0.5-1.4 mg/dL Creatinine Clr Calc Pharmacy 98.4 eGFR (calculated from the MDRD study equation) and eCrCl (calculated from the Cockcroft-Gault equation) are based on different parameters and may not yield comparable results. If eCrCl result is absurd, please check patient's height/weight. Estimated Glomerular Filt Rate > 60 NOTE: For -Ugandan individuals, multiply the result by 1.210. Chronic Kidney Disease: Estimated GFR < 60 mL/min/1.73m2 Severe Kidney Disease: Estimated GFR < 15 mL/min/1.73m2 Troponin-I High Sensitivity Reviewed date:04/01/2024 07:12:33 PM Interpretation: Performing Lab:[facility], [address] [place] [phone] Notes/Report: Troponin-I High Sensitivity 37.4 <3.5-35.0 ng/ L The Vega high sensitivity Troponin-I results should be used in conjunction with other diagnostic information such as ECG, clinical observations and information, and patient symptoms to aid in the diagnosis of [place]. B Type Natriuretic Peptide Reviewed date:04/01/2024 07:12:33 PM Interpretation: Performing Lab:[facility], [address] [place] [phone] Notes/Report: B Type Natriuretic Peptide 83 <100 pg/mL For those patients who are being treated with Natrecor (nesiritide, recombinant BNP), BNP testing should be performed at least two hours post treatment in order to ensure that only endogenous levels of BNP are detected. Vancomycin Trough Reviewed date:04/01/2024 07:12:33 PM Interpretation: Performing Lab:[facility], [address] [place] [phone] Notes/Report: Trough level should be drawn prior to dose number: 2hr before dose @2000 on 04/01 Vancomycin Trough 10.5 10.0-20.0 mcg/mL Arterial Blood Gases - POC Reviewed date:04/01/2024 01:48:15 PM Interpretation: Performing Lab:[facility], [address] [place] [phone] Notes/Report: ABG pH 7.46 7.35-7.45 METER #: [id number] additional_comment: Cbroncarr ctrbb abuhas ABG pCO2 35 32-45 mmHg METER #: [id number] additional_comment: Cbroncarr libanbb abuhas ABG pO2 52 83-108 mmHg METER #: [id number] additional_comment: Cbroncarr ctrbb abuhas ABG Base Excess 2.7 METER #: [id number] additional_comment: Cbroncarr ctrbb abuhas ABG HCO3 26 22-26 mmol/L METER #: [id number] additional_comment: Cbroncarr ctrbb abuhas ABG O2 % Saturation 81.0 METER #: [id number] additional_comment: Cbroncarr ctrbb abuhas D Dimer High Sensitivity Reviewed date:04/01/2024 12:36:11 PM Interpretation: Performing Lab:[facility], [address] [place] [phone] Notes/Report: D Dimer High Sensitivity 00076 D-DIMER HS REFERENCE RANGE Note: Our assay reports D-Dimer Units (D-DU). The cut-off value for venous thromboembolic (VTE) disease is 230 ng/mL. This value has a very high negative predictive value when the patient has a low to moderate clinical probability of VTE. The upper limit of normal is 243 ng/mL. Hold Green Gel Reviewed date:04/01/2024 12:31:29 PM Interpretation: Performing Lab:[facility], [address] [place] [phone] Notes/Report: Hold Green Gel See Note Specimen held untested for 24 hours; Call to request Chemistry testing. CT angio chest PE protocol Reviewed date:04/02/2024 12:30:33 PM Interpretation: Performing Lab: Notes/Report: [address] [address] [address] Scan Report Signed with Caprice Patient: Javi Smith MR#: [id number] 8 : 1985 Acct:[id number] Age/Sex: 39 / M ADM Date: 03/28/24 Loc: [facility] 252-[address]: Delano Rhodes MD Ordering Physician: Delano Rhodes MD Date of Service: 04/01/24 Procedure(s): CT angio chest PE protocol Accession Number(s): [id number] cc: Alfonso Sierra MD; Delano Rhodes MD [...] in OV> 04/01/24 1547 DD/ 1315 TD/TT: Drywall Installer: CT abdomen pelvis w con Reviewed date:04/02/2024 12:30:33 PM Interpretation: Performing Lab: Notes/Report: [address] [address] [address] Scan Report Signed with Caprice Patient: Javi Smith MR#: [id number] 8 : 1985 Acct:[id number] Age/Sex: 39 / M ADM Date: 03/28/24 Loc: .ICU 252-[address]: Delano Rhodes MD Ordering Physician: Delano Rhodes MD Date of Service: 04/01/24 Procedure(s): CT abdomen pelvis w IV con Accession Number(s): [id number] cc: Alfonso Sierra MD; Delano Rhodes MD [...] in OV> 04/01/24 1547 DD/ 1315 TD/TT: Drywall Installer: US venous duplex LE BI Reviewed date:04/01/2024 07:12:33 PM Interpretation: Performing Lab: Notes/Report: [address] [address] Ultrasound Report Signed Patient: Javi Smith MR#: [id number] 8 : 1985 Acct:[id number] Age/Sex: 39 / M ADM Date: 03/28/24 Loc: .ICU 252-[address]: Delano Rhodes MD Ordering Physician: Delano Rhodes MD Date of Service: 04/01/24 Procedure(s): US venous duplex LE BI Accession Number(s): [id number] cc: Alfonso Sierra MD; Delano Rhodes MD [...] in OV> 04/01/24 1735 DD/ 1701 TD/TT: Drywall Installer: NABIL HINTON chest 1V Reviewed date:04/01/2024 12:34:53 PM Interpretation: Performing Lab: Notes/Report: [address] [address] XRay Report Signed Patient: Javi Smith MR#: [id number] 8 : 1985 Acct:[id number] Age/Sex: 39 / M ADM Date: 03/28/24 Loc: [facility] 252-[address]: Delano Rhodes MD Ordering Physician: Jose Thomas MD Date of Service: 04/01/24 Procedure(s): XR chest 1V Accession Number(s): [id number] cc: Jose Thomas MD; Alfonso Sierra MD [...] in OV> 04/01/24 1123 DD/ 0928 TD/TT: Drywall Installer: PTT Heparin Drip Reviewed date:04/02/2024 12:30:33 PM Interpretation: Performing Lab:[facility], [address] [place] [phone] Notes/Report: PTT Heparin Drip 39.4 53-77.9 SEC For information regarding the monitoring of heparin therapy, please refer to Pharmacy. Complete Blood Count Auto Di ff Reviewed date:04/02/2024 12:30:33 PM Interpretation: Performing Lab:[facility], [address] [place] [phone] Notes/Report: White Blood Count 10.2 4.8-10.8 X10*3/uL [...] INR Reviewed date:04/02/2024 12:30:33 PM Interpretation: Performing Lab:[facility], [address] [place] [phone] Notes/Report: Prothrombin Time 17.1 11.1-13.3 SEC INTERNATIONAL [...] Drip Reviewed date:04/02/2024 12:30:33 PM Interpretation: Performing Lab:[facility], [address] [place] [phone] Notes/Report: PTT Heparin Drip 42.5 53-77.9 SEC For information regarding the monitoring of heparin therapy, please refer to Pharmacy. Comprehensive Met. Panel Reviewed date:04/02/2024 12:30:33 PM Interpretation: Performing Lab:[facility], [address] [place] [phone] Notes/Report: Sodium 150 135-145 mmol/L Potassium 3.7 [...] Glomerular Filt Rate > 60 NOTE: For -Ugandan individuals, multiply the result by 1.210. Chronic [...] Panel Reviewed date:04/04/2024 06:08:27 PM Interpretation: Performing Lab:[facility], [address] [place] [phone] Notes/Report: Sodium 145 135-145 mmol/L Potassium 3.4 [...] Glomerular Filt Rate > 60 NOTE: For -Ugandan individuals, multiply the result by 1.210. Chronic Kidney Disease: Estimated GFR < 60 mL/min/1.73m2 Severe Kidney Disease: Estimated GFR < 15 mL/min/1.73m2 Glucose Random 118 60-115 mg/dL Calcium 8.6 8.4-10.2 mg/dL Phosphorus Reviewed date:04/02/2024 12:30:33 PM Interpretation: Performing Lab:[facility], [address] [place] [phone] Notes/Report: Phosphorus 3.1 2.7-4.5 mg/dL Magnesium Reviewed date:04/02/2024 12:30:33 PM Interpretation: Performing Lab:[address] [address] Notes/Report: Magnesium 2.2 1.6-2.6 mg/dL Ammonia Reviewed date:04/02/2024 12:30:33 PM Interpretation: Performing Lab:[facility], [address] [place] [phone] Notes/Report: Ammonia 47 13-55 umol/L Slight Hemolysi s Venous Blood Gases - POC Reviewed date:04/02/2024 12:30:33 PM Interpretation: Performing Lab:[address] [address] Notes/Report: VBG pH 7.50 7.32-7.43 METER #: [id number] additional_comment: Nabil louiebb henric VBG pCO2 31 METER #: [id number] additional_comment: Nabil louiebb henric VBG pO2 88 METER #: [id number] additional_comment: Nabil louiebb henric VBG Base Excess 2.3 METER #: [id number] additional_comment: Nabil louiebb henric VBG HCO3 24 22-26 mmol/L METER #: [id number] additional_comment: Nabil louiebb henric VBG O2 % Saturation 98.0 METER #: [id number] additional_comment: Nabil robbins henric XR KUB Reviewed date:04/04/2024 06:08:27 PM Interpretation: Performing Lab: Notes/Report: [address] [place] [address] XRay Report Signed Patient: Javi Smith MR#: [id number] 8 : 1985 Acct:[id number] Age/Sex: 39 / M ADM Date: 03/28/24 Loc: [facility] 477-[address]: Jose Thomas MD Ordering Physician: Casimiro Bradley MD Date of Service: 04/02/24 Procedure(s): XR KUB Accession Number(s): [id number] cc: Alfonso Sierra MD; Casimiro Bradley MD [...] in OV> 04/02/24 1515 DD/ 0738 TD/TT: Drywall Installer: RHIANNA PTT Heparin Drip Reviewed date:04/02/2024 12:30:33 PM Interpretation: Performing Lab:[facility], [address] [place] [phone] Notes/Report: PTT Heparin Drip 54.6 53-77.9 SEC For information regarding the monitoring of heparin therapy, please refer to Pharmacy. PTT Heparin Drip Reviewed date:04/04/2024 06:08:27 PM Interpretation: Performing Lab:[facility], [address] [place] [phone] Notes/Report: Duplicate order. See CG28 PTT Heparin Drip 56.0 53-77.9 SEC For information regarding the monitoring of heparin therapy, please refer to Pharmacy. Complete Blood Count no Diff Reviewed date:04/04/2024 06:08:26 PM Interpretation: Performing Lab:[facility], [address] [place] [phone] Notes/Report: White Blood Count 9.0 4.8-10.8 X10*3/uL [...] ff Reviewed date:04/04/2024 06:08:26 PM Interpretation: Performing Lab:[facility], [address] [place] [phone] Notes/Report: White Blood Count 8.4 4.8-10.8 X10*3/uL [...] Drip Reviewed date:04/04/2024 06:08:26 PM Interpretation: Performing Lab:[facility], [address] [place] [phone] Notes/Report: PTT Heparin Drip 55.6 53-77.9 SEC For information regarding the monitoring of heparin therapy, please refer to Pharmacy. Comprehensive Met. Panel Reviewed date:04/04/2024 06:08:26 PM Interpretation: Performing Lab:[facility], [address] [place] [phone] Notes/Report: Sodium 142 135-145 mmol/L Potassium 3.4 [...] Glomerular Filt Rate > 60 NOTE: For -Ugandan individuals, multiply the result by 1.210. Chronic [...] Panel Reviewed date:04/04/2024 06:08:26 PM Interpretation: Performing Lab:[address] [address] Notes/Report: Sodium 141 135-145 mmol/L Potassium 3.1 [...] Glomerular Filt Rate > 60 NOTE: For -Ugandan individuals, multiply the result by 1.210. Chronic Kidney Disease: Estimated GFR < 60 mL/min/1.73m2 Severe Kidney Disease: Estimated GFR < 15 mL/min/1.73m2 Glucose Random 102 60-115 mg/dL Calcium 9.0 8.4-10.2 mg/dL Phosphorus Reviewed date:04/04/2024 06:08:27 PM Interpretation: Performing Lab:[address] [phone] Notes/Report: Phosphorus 2.1 2.7-4.5 mg/dL Magnesium Reviewed date:04/04/2024 06:08:27 PM Interpretation: Performing Lab:[address] [address] Notes/Report: Magnesium 2.0 1.6-2.6 mg/dL Venous Blood Gases - POC Reviewed date:04/04/2024 06:08:27 PM Interpretation: Performing Lab:[address] [place] [address] Notes/Report: VBG pH 7.48 7.32-7.43 METER #: [id number] additional_comment: CB RIVEMAR VBG pCO2 38 METER #: [id number] additional_comment: CB RIVEMAR VBG pO2 59 METER #: [id number] additional_comment: CB RIVEMAR VBG Base Excess 5.0 METER #: [id number] additional_comment: CB RIVEMAR VBG HCO3 28 22-26 mmol/L METER #: [id number] additional_comment: CB RIVEMAR VBG O2 % Saturation 90.0 METER #: [id number] additional_comment: CB RIVEMAR PTT Heparin Drip Reviewed date:04/04/2024 06:08:26 PM Interpretation: Performing Lab:[facility], [address] [place] [phone] Notes/Report: PTT Heparin Drip 66.7 53-77.9 SEC For information regarding the monitoring of heparin therapy, please refer to Pharmacy. Complete Blood Count no Diff Reviewed date:04/05/2024 12:26:31 PM Interpretation: Performing Lab:[facility], [address] [place] [phone] Notes/Report: White Blood Count 5.9 4.8-10.8 X10*3/uL [...] Drip Reviewed date:04/05/2024 10:43:20 AM Interpretation: Performing Lab:[facility], [address] [place] [phone] Notes/Report: PTT Heparin Drip 70.0 53-77.9 SEC For information regarding the monitoring of heparin therapy, please refer to Pharmacy. Basic Metabolic Panel Reviewed date:04/05/2024 12:24:01 PM Interpretation: Performing Lab:[facility], [address] [place] [phone] Notes/Report: Sodium 139 135-145 mmol/L Potassium 3.5 [...] Glomerular Filt Rate > 60 NOTE: For -Ugandan individuals, multiply the result by 1.210. Chronic Kidney Disease: Estimated GFR < 60 mL/min/1.73m2 Severe Kidney Disease: Estimated GFR < 15 mL/min/1.73m2 Glucose Random 99 60-115 mg/dL Calcium 9.1 8.4-10.2 mg/dL B Type Natriuretic Peptide Reviewed date:04/05/2024 10:49:37 AM Interpretation: Performing Lab:[facility], [address] [place] [phone] Notes/Report: B Type Natriuretic Peptide 115 <100 pg/mL For those patients who are being treated with Natrecor (nesiritide, recombinant BNP), BNP testing should be performed at least two hours post treatment in order to ensure that only endogenous levels of BNP are detected. Complete Blood Count no Diff Reviewed date:04/06/2024 12:02:17 PM Interpretation: Performing Lab:[facility], [address] [place] [phone] Notes/Report: White Blood Count 9.2 4.8-10.8 X10*3/uL [...] Panel Reviewed date:04/06/2024 12:01:45 PM Interpretation: Performing Lab:[address] [address] Notes/Report: Sodium 140 135-145 mmol/L Potassium 3.9 [...] Glomerular Filt Rate > 60 NOTE: For -Ugandan individuals, multiply the result by 1.210. Chronic Kidney Disease: Estimated GFR < 60 mL/min/1.73m2 Severe Kidney Disease: Estimated GFR < 15 mL/min/1.73m2 Glucose Random 102 60-115 mg/dL Calcium 9.2 8.4-10.2 mg/dL Complete Blood Count Auto Di ff Reviewed date:04/28/2024 07:56:49 PM Interpretation: Performing Lab:[facility], [address] [place] [phone] Notes/Report: White Blood Count 12.5 4.8-10.8 X10*3/uL [...] Panel Reviewed date:04/28/2024 07:56:23 PM Interpretation: Performing Lab:[facility], [address] [place] [phone] Notes/Report: Sodium 143 135-145 mmol/L Potassium 4.7 [...] Glomerular Filt Rate > 60 NOTE: For -Ugandan individuals, multiply the result by 1.210. Chronic Kidney Disease: Estimated GFR < 60 mL/min/1.73m2 Severe Kidney Disease: Estimated GFR < 15 mL/min/1.73m2 Glucose Random 130 60-115 mg/dL Calcium 10.6 8.4-10.2 mg/dL Glucose, Whole Blood Reviewed date:04/28/2024 07:56:58 PM Interpretation: Performing Lab:[facility], [address] [place] [phone] Notes/Report: Glucose, Whole Blood 118 60-115 mg/dL METER # : [id number] XR chest 2V Reviewed date:04/29/2024 07:04:22 AM Interpretation: Performing Lab: Notes/Report: [address] [address] XRay Report Signed Patient: Javi Smith MR#: [id number] 8 : 1985 Acct:[id number] Age/Sex: 39 / M ADM Date: 04/28/24 Loc: .ED Attending Dr: Ordering Physician: Madhav Meade MD Date of Service: 04/28/24 Procedure(s): XR chest 2V Accession Number(s): [id number] cc: Alfonso Sierra MD; Madhav Meade MD [...] in OV> 04/28/24 1101 DD/ 1035 TD/TT: Drywall Installer: XR thoracic spine 2V Reviewed date:04/28/2024 08:00:24 PM Interpretation: Performing Lab: Notes/Report: [address] [address] XRay Report Signed Patient: Javi Smith MR#: [id number] 8 : 1985 Acct:[id number] Age/Sex: 39 / M ADM Date: 04/28/24 Loc: HO.ED Attending Dr: Ordering Physician: Madhav Meade MD Date of Service: 04/28/24 Procedure(s): XR thoracic spine 2V Accession Number(s): [id number] cc: Alfonso Sierra MD; Madhav Meade MD [...] in OV> 04/28/24 1129 DD/ 1035 TD/TT: Drywall Installer: DM XR lumbar spine 2-3V Reviewed date:04/28/2024 07:58:00 PM Interpretation: Performing Lab: Notes/Report: [address] [address] XRay Report Signed Patient: Javi Smith MR#: [id number] 8 : 1985 Acct:[id number] Age/Sex: 39 / M ADM Date: 04/28/24 Loc: .ED Attending Dr: Ordering Physician: Madhav Meade MD Date of Service: 04/28/24 Procedure(s): XR lumbar spine 2-3V Accession Number(s): [id number] cc: Alfonso Sierra MD; Madhav Meade MD [...] in OV> 04/28/24 1258 DD/ 1223 TD/TT: Drywall Installer: XR shoulder LT min 2V Reviewed date:04/28/2024 07:58:30 PM Interpretation: Performing Lab: Notes/Report: [address] [address] XRay Report Signed Patient: Javi Smith MR#: [id number] 8 : 1985 Acct:[id number] Age/Sex: 39 / M ADM Date: 04/28/24 Loc: HO.ED Attending Dr: Ordering Physician: Madhav Meade MD Date of Service: 04/28/24 Procedure(s): XR shoulder LT min 2V Accession Number(s): [id number] cc: Alfonso Sierra MD; Madhav Meade MD [...] in OV> 04/28/24 1123 DD/ 1035 TD/TT: Drywall Installer: JANICE Goncalves. Panel Reviewed date:05/01/2024 06:25:16 PM Interpretation: Performing Lab:[address] [address] Notes/Report: Sodium 142 135-145 mmol/L Potassium 3.7 3.3-5.1 mmol/L Chloride 103 96-108 mmol/L Carbon Dioxide 29 22-29 mmol/L Anion Gap 14 12-20 Blood Urea Nitrogen 13 9-16 mg/dL Creatinine 0.69 0.5-1.4 mg/dL Estimated Glomerular Filt Rate > 60 NOTE: For -Ugandan individuals, multiply the result by 1.210. Chronic [...] Ionized Reviewed date:05/03/2024 12:34:14 PM Interpretation: Performing Lab:[address] [address] Notes/Report: Calcium, Ionized 5.1 4.7-5.5 mg/dL THIS TEST WAS PERFORMED AT: [facility] [address] [address] RENETTA ARIAS MD Phosphorus Reviewed date:05/01/2024 06:23:06 PM Interpretation: Performing Lab:[facility], [address] [place] [phone] Notes/Report: Phosphorus 3.7 2.7-4.5 mg/dL Vitamin D 25-OH Total Reviewed date:05/01/2024 06:24:24 PM Interpretation: Performing Lab:[address] [address] Notes/Report: Vitamin D 25-OH Total 38.7 >30 [...] T4 Reviewed date:05/01/2024 06:22:28 PM Interpretation: Performing Lab:[facility], [address] [place] [phone] Notes/Report: TSH reflex Free T4 0.94 0.32-4.0 uIU/mL Parathyroid Hormone Intact Reviewed date:05/01/2024 06:24:55 PM Interpretation: Performing Lab:[facility], [address] [place] [phone] Notes/Report: Parathyroid Hormone Intact 26.3 8.7-77.1 pg/mL Calcium Reviewed date:05/04/2024 12:33:52 PM Interpretation: Performing Lab:[facility], [address] [place] [phone] Notes/Report: Calcium 10.3 8.4-10.2 mg/dL Albumin Level Reviewed date:05/04/2024 12:33:59 PM Interpretation: Performing Lab:[facility], [address] [place] [phone] Notes/Report: Albumin Level 4.3 3.5-5.0 g/dL Testosterone, Free/Total Reviewed date:05/10/2024 12:24:45 PM Interpretation: Performing Lab:[facility], [address] [place] [phone] Notes/Report: Testosterone, Total 320 669-2984 ng/dL For additional information, please refer to http://education.[employer]/faq/ TotalTestosteroneMS YQVUC127 (This link is being provided for informational/ educational purposes only.) This test was developed and its analytical performance characteristics have been determined by [facility] [place], [place]. It has not been cleared or approved by the U.S. Food and Drug Administration. This assay has been validated pursuant to the CLIA regulations and is used for clinical purposes. Testosterone, Free 57.3 35.0-155.0 pg/mL This test was developed and its analytical performance characteristics have been determined by [facility] [place], [place]. It has not been cleared or approved by the U.S. Food and Drug Administration. This assay has been validated pursuant to the CLIA regulations and is used for clinical purposes. THIS TEST WAS PERFORMED AT: [facility] DYAN TUCKER MD,PHD Alkaline Phosphatase Bone Reviewed date:05/10/2024 12:24:07 PM Interpretation: Performing Lab:[facility], [address] [place] [phone] Notes/Report: Alkaline Phosphatase Bone 30.9 7.7-21.3 mcg/L THIS TEST WAS PERFORMED AT: [facility] [id number] [place] [address] DYAN TUCKER MD,PHD Collagen Crosslinks NTX Reviewed date:05/09/2024 02:16:17 PM Interpretation: Performing Lab:[facility], [address] [place] [phone] Notes/Report: N-Telopeptide 144 9-60 Result Units: nM BCE/mM creat Units of Measure: nM BCE/mM creat NTXCreaRU 206 20-320 mg/dL THIS TEST WAS PERFORMED AT: [facility]/[address] DYAN TUCKER MD,PHD Collagen Type I C-Telopeptid e Reviewed date:05/10/2024 12:23:51 PM Interpretation: Performing Lab:[facility], [address] [place] [phone] Notes/Report: Collagen Type I C-Telopeptide 958 70-780 pg/mL No reference range is provided for postmenopausal women because of the increased rate of bone turnover post-menopause. It is recommended that results for postmenopausal women be compared to the premenopausal reference range as this will give a better indication of their rate of bone loss. For additional information, please refer to https://[employer].Beem/faq /HIR366 (This link is being provided for informational/ educational purposes only.) THIS TEST WAS PERFORMED AT: [facility] [id number] [place] [address] DYAN TUCKER MD,PHD XR chest 2V Reviewed date:06/03/2024 08:57:08 AM Interpretation: Performing Lab: Notes/Report: [address] [address] XRay Report Signed Patient: Javi Smith MR#: [id number] 8 : 1985 Acct:[id number] Age/Sex: 39 / M ADM Date: 05/11/24 Loc: LEEANNA Attending Dr: Alfonso Sierra MD Ordering Physician: Alfonso Sierra MD Date of Service: 05/11/24 Procedure(s): XR chest 2V Accession Number(s): [id number] cc: Alfonso Sierra MD EXAMINATION: XR CHEST CLINICAL INFORMATION: Back pain since December per patient. Back surgery in February per patient. COMPARISON: 04/28/2024. TECHNIQUE: 2 views of the chest were obtained. FINDINGS: There is no gross pneumothorax. Lung volumes are low. Heart size is normal. Redemonstration bibasilar opacities, predominantly left base. Redemonstration of vertebroplasty changes in the ejc-iv-qtxsr thoracic spine. Small left pleural effusion. Degenerative changes in the thoracic spine. XR/XR chest 2V IMPRESSION: 1. Redemonstration of bibasilar opacities, predominantly left base, with some interval improvement. Small left pleural effusion. 2. Recommend follow-up to resolution. Dictated By: Gail Baca MD Signed By: <Electronically signed by Gail Baca MD in OV> 06/02/24 0707 DD/ 0912 TD/TT: Drywall Installer: XR chest 2V Reviewed date:07/14/2024 08:39:43 AM Interpretation: Performing Lab: Notes/Report: [place] [address] XRay Report Signed Patient: Javi Smith MR#: [id number] 8 : 1985 Acct:[id number] Age/Sex: 39 / M ADM Date: 06/15/24 Loc: HO.JAMAALAY Attending Dr: Alfonso Sierra MD Ordering Physician: Alfonso Sierra MD Date of Service: 06/15/24 Procedure(s): XR chest 2V Accession Number(s): [id number] cc: Alfonso Sierra MD EXAMINATION: XR chest [...] 07/13/24 1816 DD/ 0745 TD/TT: 06/15/24 0753 Drywall Installer: Complete Blood Count Auto Di ff Reviewed date:08/03/2024 12:14:32 PM Interpretation: Performing Lab:[facility], [address] [place] [phone] Notes/Report: White Blood Count 9.5 4.8-10.8 X10*3/uL [...] INR Reviewed date:08/03/2024 12:25:49 PM Interpretation: Performing Lab:[facility], [address] [place] [phone] Notes/Report: Prothrombin Time 12.7 10.9-12.4 SEC INTERNATIONAL [...] Panel Reviewed date:08/03/2024 12:26:08 PM Interpretation: Performing Lab:[facility], [address] [place] [phone] Notes/Report: Sodium 140 135-145 mmol/L Potassium 3.7 [...] Glomerular Filt Rate > 60 NOTE: For -Ugand[place] individuals, multiply the result by 1.210. Chronic [...] Lipase Reviewed date:08/03/2024 12:13:19 PM Interpretation: Performing Lab:[facility], [address] [place] [phone] Notes/Report: Lipase 38 8-78 U/L UA CC w/rflx Micro + Cult Reviewed date:08/05/2024 12:23:32 PM Interpretation: Performing Lab:[facility], [address] [place] [phone] Notes/Report: [id number] Urine, Clean Catch Color Urine Dark Yellow Appearance Urine Clear PH 6.0 5.0-9.0 Glucose Urine UA Negative Negative mg/dL Urine Blood Negative Negative Specific Quinn - Urine 1.025 1.005-1.025 Urine Protein Negative Neg-Trace mg/dL Urine Ketones Negative Negative mg/dL Nitrite Urine Negative Negative Leukocyte Esterase Urine Negative Negative XR lumbar spine 2-3V Reviewed date:08/05/2024 12:23:16 PM Interpretation: Performing Lab: Notes/Report: [address] [address] XRay Report Signed Patient: Javi Smith MR#: [id number] 8 : 1985 Acct:[id number] Age/Sex: 39 / M ADM Date: 08/03/24 Loc: .ED Attending Dr: Ordering Physician: Long Villagran Date of Service: 08/03/24 Procedure(s): XR lumbar spine 2-3V Accession Number(s): [id number] cc: Alfonso Sierra MD; Long Villagran EXAMINATION: [...] 08/03/24 1325 DD/ 1133 TD/TT: 08/03/24 1154 Drywall Installer: SARAH Complete Blood Count Auto Di ff Reviewed date:10/05/2024 12:46:36 PM Interpretation: Performing Lab:[facility], [address] [place] [phone] Notes/Report: White Blood Count 12.5 4.8-10.8 X10*3/uL [...] Panel Reviewed date:10/05/2024 12:43:21 PM Interpretation: Performing Lab:[facility], [address] [place] [phone] Notes/Report: Sodium 139 135-145 mmol/L Potassium 4.2 [...] REVIEW Reviewed date:10/05/2024 12:41:54 PM Interpretation: Performing Lab:[facility], [address] [place] [phone] Notes/Report: SLIDE REVIEW VERIFIED CT lumbar spine wo con Reviewed date:10/07/2024 03:28:04 PM Interpretation: Performing Lab: Notes/Report: [address] [address] [address] Scan Report Signed Patient: Javi Smith MR#: [id number] 8 : 1985 Acct:[id number] Age/Sex: 39 / M ADM Date: 10/05/24 Loc: .ED Attending Dr: Ordering Physician: Homer Larsen MD Date of Service: 10/05/24 Procedure(s): CT lumbar spine wo IV con Accession Number(s): [id number] cc: Alfonso Sierra MD; Homer Larsen MD [...] by: Will Cabral DO 10/05/2024 06:21 PM [facility] Dictated By: Dave Cabral DO Signed By: <Electronically signed by Dave Cabral DO in OV> 10/05/24 1821 DD/ 1549 TD/TT: 10/05/24 1653 Drywall Installer: GEOVANNA CT chest wo con Reviewed date:10/14/2024 12:09:34 PM Interpretation:appt 10-14-2024 Performing Lab: Notes/Report: [address] [address] [address] Scan Report Signed Patient: Javi Smith MR#: [id number] 8 : 1985 Acct:[id number] Age/Sex: 39 / M ADM Date: 10/05/24 Loc: HO.ED Attending Dr: Ordering Physician: Homer Larsen MD Date of Service: 10/05/24 Procedure(s): CT chest wo IV con Accession Number(s): [id number] cc: Alfonso Sierra MD; Homer Larsen MD [...] Jose Alfredo Garcia MD 10/05/2024 08:36 PM [facility] Dictated By: Jose Alfredo Garcia MD Signed By: <Electronically signed by Jose Alfredo Garcia MD in OV> 10/05/242035 DD/ 42 TD/TT: 10/05/241652 Drywall Installer: CT head/brain wo con Reviewed date:10/05/2024 01:00:35 PM Interpretation: Performing Lab: Notes/Report: [place] [address] [address] Scan Report Signed Patient: Javi Smith MR#: [id number] 8 : 1985 Acct:[id number] Age/Sex: 39 / M ADM Date: 10/05/24 Loc: HO.ED Attending Dr: Ordering Physician: Homer Larsen MD Date of Service: 10/05/24 Procedure(s): CT head/brain wo IV con Accession Number(s): [id number] cc: Alfonso Sierra MD; Homer Larsen MD [...] 10/05/24 1244 DD/ 1154 TD/TT: 10/05/24 1159 Drywall Installer: XR chest 2V Reviewed date:10/05/2024 04:45:14 PM Interpretation: Performing Lab: Notes/Report: [address] [address] XRay Report Signed Patient: Javi Smith MR#: [id number] 8 : 1985 Acct:[id number] Age/Sex: 39 / M ADM Date: 10/05/24 Loc: .ED Attending Dr: Ordering Physician: Homer Larsen MD Date of Service: 10/05/24 Procedure(s): XR chest 2V Accession Number(s): [id number] cc: Alfonso Sierra MD; Homer Larsen MD [...] 10/05/24 1429 DD/ 1320 TD/TT: 10/05/24 1330 Drywall Installer: XR lumbar spine 2-3V Reviewed date:10/05/2024 04:45:47 PM Interpretation: Performing Lab: Notes/Report: [address] [address] XRay Report Signed Patient: Javi Smith MR#: [id number] 8 : 1985 Acct:[id number] Age/Sex: 39 / M ADM Date: 10/05/24 Loc: .ED Attending Dr: Ordering Physician: Homer Larsen MD Date of Service: 10/05/24 Procedure(s): XR lumbar spine 2-3V Accession Number(s): [id number] cc: Alfonso Sierra MD; Homer Larsen MD [...] 10/05/24 1432 DD/ 1308 TD/TT: 10/05/24 1330 Drywall Installer: REASON FOR REFERRAL Reason compression fracture of [...] Hale 10:17:19 AM EST > info faxed , Oumou Hale 12/30/2023 11:14:37 AM EST > spoke with Dr. Ambrose office they are giving Dr. Ambrose the [place] [facility] will get back to me , [...] Provider Speciality Internal M edicine Referred Provider Mracial Dean Referred Provider Specialty Endocrinolog y General Notes Oumou Hale 10:23:55 AM EST > info faxed Geoffrey Annette 12/30/2023 03:16:28 PM EST > info faxed Geoffrey Annette 01/13/2024 02:24:42 PM EDT >was told by [...] e a day for 90 days Active IMMUNIZATIONS Vaccine Route Administration Date Status [...] Notes Problem Osteopetrosis (Q78.2) Active confirmed Osteopetrosis (7228940) Problem Other ascites (R18.8) Active confirmed Ascites (810113258) Problem Seizure disorder (G40.909) Active confirmed 040415951 Problem 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 Ulcerative proctocolitis (370716092) Problem Acute saddle pulmonary embolism without acute cor pulmonale (I26.92) Active confirmed 756977165879136 Problem Clubbing of nail (R68.3) Active confirmed 5631498 Problem 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 472001826 Problem Compression fracture of thoracic vertebra with routine healing, unspecified thoracic vertebral level, subsequent encounter (S22.000D) Active confirmed 354182996 VITAL SIGNS Blood pressure diastolic 58 mm Hg 10/14/2024 Height 64 in 10/14/2024 Blood pressure systolic 82 mm Hg 10/14/2024 Weight 127 lbs 10/14/2024 BMI 21.80 kg/m2 10/14/2024 Encounters Encounter Location Date Provider Diagnosis Alfonso Sierra MD [address] [place] [id number] 03/11/2024 Alfonso Sierra Rising PSA level R97.20 ; Annual physical exam Z00.00 ; Compression fracture of thoracic vertebra with routine healing, unspecified thoracic vertebral level, subsequent encounter S22.000D and Depression screening Z13.31 Alfonso Sierra MD [address] [place] [id number] 03/04/2024 Alfonso Sierra Blood tests for routine general physical examination Z00.00 Alfonso Sierra MD [address] [place] [id number] 12/29/2023 Alfonso Sierra Elevated LFTs R79.89 and Compression fracture of thoracic vertebra with routine healing, unspecified thoracic vertebral level, subsequent encounter S22.000D Alfonso Sierra MD [address] [place] [address] [id number] 01/05/2024 Alfonso Sierra Compression fracture of thoracic vertebra with routine healing, unspecified thoracic vertebral level, subsequent encounter S22.000D Alfonso Sierra MD [address] [place] [id number] 09/09/2024 Alfonso Sierra Seizure disorder G40.909 Alfonso Sierra MD [address] [place] [address] [id number] 05/20/2024 Alfonso Sierra Compression fracture of thoracic vertebra with routine healing, unspecified thoracic vertebral level, subsequent encounter S22.000D ; Osteopetrosis Q78.2 ; Acute saddle pulmonary embolism without acute cor pulmonale I26.92 and Seizure disorder G40.909 Alfonso Sierra MD [address] [place] [address] [id number] 06/24/2024 Alfonso Sierra Acute saddle pulmonary embolism without acute cor pulmonale I26.92 and Compression fracture of thoracic vertebra with routine healing, unspecified thoracic vertebral level, subsequent encounter S22.000D Alfonso Sierra MD [address] [place] [id number] 10/14/2024 Alfonso Sierra Seizure disorder G40.909 ; 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 and Other ascites R18.8 Alfonso Sierra MD [address] [place] [address] [id number] 04/22/2024 Alfonso Sierra Other acute pulmonar y embolism without acute cor pulmonale I26.99 ; Increased ammonia level R79.89 ; Osteopetrosis Q78.2 and Compression fracture of thoracic vertebra with routine healing, unspecified thoracic vertebral level, subsequent encounter S22.000D Alfonso Sierra MD [address] [place] [id number] 05/04/2024 Alfonso Sierra History of pneumonia Z87.01 ; Seizure disorder G40.909 and Acute saddle pulmonary embolism without acute cor pulmonale I26.92 Alfonso Sierra MD [address] [place] [address] [id number] 01/08/2024 Alfonso Sierra Compression fracture of thoracic vertebra with routine healing, unspecified thoracic vertebral level, subsequent encounter S22.000D Alfonso Sierra MD [address] [place] [address] [id number] 04/06/2024 Alfonso Sierra MD [address] [place] [address] [id number] 04/29/2024 Alfonso Sierra Back pain M54.9 Alfonso Sierra MD [address] [place] [address] [id number] 04/29/2024 Alfonso Sierra MD [address] [place] [address] [id number] 04/29/2024 Alfonso Sierra MD [address] [place] [address] [id number] 05/17/2024 Alfonso Sierra Acute saddle pulmonary embolism without acute cor pulmonale I26.92 Alfonso Sierra MD [address] [place] [address] [id number] 06/03/2024 Alfonso Sierra Back pain M54.9 Alfonso Sierra MD [address] [place] [address] [id number] 08/17/2024 Alfonso Sierra MD [address] [place] [address] [id number] 09/14/2024 Alfonso Sierra Acute saddle pulmonary embolism without acute cor pulmonale I26.92 Alfonso Sierra MD [address] [place] [address] [id number] 10/07/2024 Alfonso Sierra MD [address] [place], [place] [id number] 10/11/2024 Alfonso Sierra MD [address] [place], [place] [id number] 10/15/2024 Alfonso Sierra 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 [...] (ICD-10 - R79.89) need blood results from [facility] 12/29/2023 Compression fracture of thoracic vertebra with [...] going to try to get endocrine at [facility] 09/09/2024 Seizure disorder (ICD-10 - G40.909) patient [...] (ICD-10 - S22.000D) going to start forteo 10/14/2024 Seizure disorder (ICD-10 - G40.909) just started keppra/ going to see dr chatman 10/14/2024 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) will goe us of abdomen to see if there is ascites, pending diagnostic testing 04/22/2024 Other acute pulmonary embolism without acute cor pulmonale (ICD-10 - I26.99) has recovered 04/22/2024 Increased ammonia level (ICD-10 - R79.89) was back to normal needs referral to dr mendez 05/04/2024 Seizure disorder (ICD-10 - G40.909) pending diagnostic testing/ order faxed to [facility] CS dept 05/04/2024 History of pneumonia (ICD-10 [...] to be done before his 06-24-24 visit 10/15/2024 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) 03/11/2024 Depression screening (ICD-10 - Z13.31) negative screen 05/20/2024 Seizure disorder (ICD-10 - G40.909) awaiting diagnostic study 04/22/2024 Compression fracture of thoracic vertebra with routine healing, unspecified thoracic vertebral level, subsequent encounter (ICD-10 - S22.000D) will start meds 10/15/2024 Other ascites (ICD-10 - R18.8) 10/14/2024 Other ascites (ICD-10 - R18.8) PLAN OF TREATMENT Pending Test Test Name Order Date US ABD 10/14/2024 US abdomen complete 10/15/2024 XR chest 2V 04/29/2024 XR chest 2V 06/03/2024 EEG awake and asleep 05/04/2024 Next Appt Details Provider Name:Alfonso martinez, 11/16/2024 11:15:00 AM, [address] [place] [address], [address], [id number], Provider Name:Alfonso Avendano ier, 03/10/2025 07:45:00 AM, [address] [place] [address], [address], [id number], Provider Name:Alfonso Avendano ier, 03/17/2025 11:00:00 AM, [address] [place] [address], [address], [phone], Insurance Providers Payer Name Payer Address Payer Phone Subscriber Number Group Number Insured Name Patient Relationship to Insured Coverage Start Date Coverage End Date [facility] [address] [address] [place] [address] [phone] [id number] Sarah Javi Self - patient is the insured [employer] [place] CLAIM OFFICE [address] Ronn nazario, [place] [address] [id number] Javi Smith Self - patient is the insured MEDICAL (GENERAL) HISTORY Medical History History ICD Code 04/30/2019 - colonoscopy by Dr. Mendez : Clonoscopy 12/10/22 pending path lialda is asachol
== END 2024-10-19 08:04 | disposition home or self-care (01) ==
LOC: HO.MRI 08:03
PROVIDERS: PCP Internal Medicine; Visit Provider Internal Medicine
DX: M80.88XA Other osteoporosis with current pathological fracture, vertebra(e), initial encounter for fracture (principal)
CPT/HCPCS: 72148

== ENCOUNTER 2024-10-26 08:40 | Outpatient (REF) | payer OTHER, SELFPAY ==
--- OUTSIDE RECORDS SUMMARY | 2024-10-26 08:46 | XMS_ITS ---
Author Organization [facility] Address [address] [place] [address] Care Team Providers Care Manager Laundry Name Role Phone Alfonso Sierra MD Primary Care Provider Krystyna Eagle Jr, Lacho Dixon REASON FOR VISIT labs Encounters Encounter Location Date Provider Diagnosis [facility] [address] [place] [address] 05/21/2024 Lacho Eagle Jr PLAN OF TREATMENT Next Appt Details Provider Name:Lacho funes Jr, 03/23/2025 09:40:00 AM, [address], [address], [place], [address],
--- OUTSIDE RECORDS SUMMARY | 2024-10-26 08:46 | XMS_ITS ---
Author Organization [facility] Address [address] [place] [address] Care Team Providers Care Residential Concierge Name Role Phone Alfonso Sierra MD Primary Care Provider Krystyna Eagle Jr, Lacho Dixon REASON FOR VISIT elevated ammonia level Encounters Encounter Location Date Provider Diagnosis [facility] [address] [place] [address] 04/29/2024 Lacho Eagle Jr PLAN OF TREATMENT Next Appt Details Provider Name:Lacho funes Jr, 03/23/2025 09:40:00 AM, [address], [address], [place], [address],
--- OUTSIDE RECORDS SUMMARY | 2024-10-26 08:46 | XMS_ITS ---
Author Organization [facility] Address [address] [place] [address] Care Team Providers Care Exchange Trouble Shooter Name Role Phone Rigo CHUNG, Alfonso Primary Care Provider Lacho Zhou Jr Unavailable ALLERGIES No Known Allergies RESULTS Component Value Reference Range Notes Liver Fibrosis Pnl Reviewed date:05/21/2024 07:37:30 AM Interpretation: Performing Lab:[facility], [address] [place] [phone] Notes/Report: Liver Fibrosis Score 0.42 Liver Fibrosis [...] a>0.62 and a<=1.00 : A3 (severe activity) VYG-Sdgcr-3-Macroglobulin 171 106-279 mg/dL FIB-Haptoglobin 136 43-212 mg/dL FIB-Apolipoprotein A1 110 94-176 mg/dL FIB-Total Bilirubin 1.0 0.2-1.2 mg/dL FIB-GGT 130 3-90 U/L FIB-ALT 107 9-46 U/L Reference ID [id number] Footnote SEE NOTE The reliability of results is dependent on compliance with the preanalytical and analytical conditions recommended by [employer]. The tests have to be deferred for: [...] The performance characteristics have been determined by [employer], [place]. It has not been cleared or approved by the U.S. Food and Drug Administration. Performance characteristics refer to the analytical performance of the test. [employer], the associated logo, [employer] and all associated [employer] carson are the registered trademarks of [employer]. All third libertarian carson - (R) and (TM) - are the property of their respective owners. (C) 4133-4479 [employer]. All rights reserved. THIS TEST WAS PERFORMED AT: [employer] [facility] [address] [place] [address] RUBINA OWENS MD,PHD,LATANYA REASON FOR VISIT Patient [...] Gabapentin 100 MG TAKE 1 CAPSULE BY [facility] 3 TIMES A DAY Oral for 30 Active VITAL SIGNS BMI 20.54 kg/m2 05/10/2024 Blood pressure systolic 000 mm Hg 05/10/20 24 Blood pressure diastolic 00 mm Hg 024 Height 65.50 in 05/10/2024 Temperature 98.0 degrees Fahrenheit 05/10/20 24 Weight 125 lb 6 oz lbs 05/10/2024 Encounters Encounter Location Date Provider Diagnosis [facility] [address] [place] [address] 05/10/2024 Lacho Eagle Jr Sclerosing cholangitis K83.09 [...] 09:40:00 AM, [address], [address], [place], [address],
--- OUTSIDE RECORDS SUMMARY | 2024-10-26 08:47 | XMS_ITS | Patient Health Record ---
Author Organization [facility] Address [address] [place] [address] Care Team Providers Care Crystallographer Name Role Phone Alfonso Sierra MD Primary Care Provider Lacho Zhou Jr Unavailable ALLERGIES No Known Allergies RESULTS Component Value Reference Range Notes Liver Fibrosis Pnl Reviewed date:05/21/2024 07:37:30 AM Interpretation: Performing Lab:[facility], [address] [place] [phone] Notes/Report: Liver Fibrosis Score 0.42 Liver Fibrosis [...] a>0.62 and a<=1.00 : A3 (severe activity) OGE-Swtou-4-Macroglobulin 171 106-279 mg/dL FIB-Haptoglobin 136 43-212 mg/dL FIB-Apolipoprotein A1 110 94-176 mg/dL FIB-Total Bilirubin 1.0 0.2-1.2 mg/dL FIB-GGT 130 3-90 U/L FIB-ALT 107 9-46 U/L Reference ID [id number] Footnote SEE NOTE The reliability of results is dependent on compliance with the preanalytical and analytical conditions recommended by [employer]. The tests have to be deferred for: [...] The performance characteristics have been determined by [facility]. It has not been cleared or approved by the U.S. Food and Drug Administration. Performance characteristics refer to the analytical performance of the test. [employer], the associated logo, [employer] and all associated [employer] carson are the registered trademarks of [employer]. All third republican carson - (R) and (TM) - are the property of their respective owners. (C) 3945-3143 [employer]. All rights reserved. THIS TEST WAS PERFORMED AT: [email or web address] [place] [address] [place] [address] RUBINA OWENS MD,PHD,LATANYA Liver Panel Reviewed date:05/13/2024 11:22:38 AM Interpretation: Performing Lab:[facility], [address] [place] [phone] Notes/Report: Bilirubin Total 1.1 0.0-1.0 mg/dL Bilirubin Direct 0.4 0.0-0.5 mg/dL Aspartate Amino Transferase 70 5-37 U/L Alanine Aminotransferase 126 0-40 U/L Total Protein 7.7 6.5-8.0 g/dL Albumin Level 4.3 3.5-5.0 g/dL Alkaline Phosphatase 366 39-117 U/L Ammonia Reviewed date:05/13/2024 11:22:59 AM Interpretation: Performing Lab:[facility], [address] [place] [phone] Notes/Report: Ammonia < 14 13-55 umol/L REASON [...] Gabapentin 100 MG TAKE 1 CAPSULE BY [facility] 3 TIMES A DAY Oral [...] Ulcerative pancolitis without complication (K51.00) Active confirmed 145841229 Problem Ulcerative pancolitis (K51.00) Active confirmed Ulcerative pancolitis (959768618) Problem Ulcerative colitis, unspecified (K51.90) Active confirmed Ulcerative colitis (81589253) Problem 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 760457734 Problem Sclerosing cholangitis (K83.09) Active confirmed 085550746 VITAL SIGNS Temperature 98.0 degrees Fahrenheit 05/10/2024 Blood pressure diastolic 00 mm Hg 05/10/2024 Height 65.50 in 05/10/2024 Blood pressure systolic 000 mm Hg 05/10/2024 Weight 125 lb 6 oz lbs 05/10/2024 BMI 20.54 kg/m2 05/10/2024 Encounters Encounter Location Date Provider Diagnosis [facility] [address] [place] [phone] 03/22/2024 Lacho Eagle Jr Ulcerative pancolitis K51.00 and Sclerosing cholangitis K83.09 [facility] [address] [place] [phone] 04/29/2024 Lacho Eagle Jr [facility] [address] [place] [phone] 05/10/2024 Lacho Eagle Jr Sclerosing cholangitis K83.09 and Ulcerative pancolitis without complication K51.00 [facility] [address] [place] [phone] 03/30/2024 Lacho Eagle Jr Primary sclerosing cholangitis 576.1 and Unspecified ulcerative colitis 556.9 [facility] [address] [place] [phone] 04/28/2024 Lacho Eagle Jr [facility] [address] [place] [phone] 05/21/2024 Lacho Eagle Jr ASSESSMENTS Encounter Date [...] Test Test Name Order Date LIVER PROFILE 08/02/2015 LIVER PROFILE 10/30/2022 LIVER PROFILE 05/10/2024 LIVER PROFILE 03/22/2024 LIVER PROFILE 09/10/2013 AMMONIA 05/10/2024 CBC w/o DIFF 10/30/2022 CBC w/o DIFF 03/22/2024 PROTHROMBIN TIME (PT, INR) 10/30/2022 PROTHROMBIN TIME (PT, INR) 03/22/2024 US ABD 10/30/2022 US ABD 03/22/2024 Liver Fibrosis Pnl 03/22/2024 Liver Fibrosis Pnl 10/30/2022 Future Test Test Name Order Date LIVER PROFILE 03/30/2012 CBC w DIFF 03/30/2012 PROTHROMBIN TIME (PT, INR) 03/30/2012 COLONOSCOPY 01/07/2019 COLONOSCOPY 10/30/2022 Next Appt Details Provider Name:Lacho funes Jr, 03/23/2025 09:40:00 AM, [address] [place] [address], [address], [place], [address], Insurance Providers Payer Name Payer Address Payer Phone Subscriber Number Group Number Insured Name Patient Relationship to Insured Coverage Start Date Coverage End Date [facility] Jenn Rykert [facility] [address] [address] [place], [place] [id number] GEORGE PATINO Self - patient is the insured [facility] [address] [place], [place] [id number] GEORGE PATINO Self - patient is the insured MEDICAL (GENERAL) HISTORY Medical History History ICD Code primary sclerosing cholangitis ulcerative colitis, diagnosi s 08/11, current treatment Lialda, colonoscopy 12/26, no active colitis on biopsies, three-year followup spinal fractures surgery february 04, 2023 Pulmonary embolus Surgical History Surgery Date(Month/Year) Right inguinal herniorrhaphy 04/2017 spinal fracures 02/2023
--- OUTSIDE RECORDS SUMMARY | 2024-10-26 08:47 | XMS_ITS ---
Author Organization Alfonso Sierra MD Address [address] [place] [phone] Care Team Providers Care Industrial Hygenist Name Role Phone Alfonso Sierra Primary Care Provider REASON FOR VISIT Abd US orders Encounters Encounter Location Date Provider Diagnosis Alfonso Sierra MD [address] [facility] [address] [place] [phone] 10/15/2024 Alfonso Sierra 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 and Other ascites R18.8 ASSESSMENTS Encounter Date Diagnosis Assessment Notes Treatment Notes Treatment Clinical Notes 10/15/2024 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) 10/15/2024 Other ascites (ICD-10 - R18.8) PLAN OF TREATMENT Pending Test Test Name Order Date US abdomen complete 10/15/2024 Next Appt Details Provider Name:Alfonso martinez, 11/16/2024 11:15:00 AM, [address] [facility], [address] [facility], [place], [place], [phone], Provider Name:Alfonso martinez, 03/10/2025 07:45:00 AM, [address], [address], [place], [phone], Provider Name:Alfonso martinez, 03/17/2025 11:00:00 AM, [address] [facility], [address], [place], [phone],
--- OUTSIDE RECORDS SUMMARY | 2024-10-26 08:47 | XMS_ITS ---
Author Organization Alfonso Sierra MD Address [address] [facility] [address] [place] [phone] Care Team Providers Care Solidworks Drafter Name Role Phone Alfonso Sierra Primary Care Provider [phone] [address] chest Encounters Encounter Location Date Provider Diagnosis Alfonos Sierra MD 10 [facility] [address] [place] [phone] 10/11/2024 Alfonso Sierra PLAN OF TREATMENT Next Appt Details Provider Name:Alfonso martinez, 11/16/2024 11:15:00 AM, [address] [place] [address], [address] [place] [address], [phone], Provider Name:Alfonso martinez, 03/10/2025 07:45:00 AM, [address] [place] [address], [address], [phone], Provider Name:Alfonso martinez, 03/17/2025 11:00:00 AM, [address] [place] [address], [address], [phone],
--- OUTSIDE RECORDS SUMMARY | 2024-10-26 08:47 | XMS_ITS ---
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 Name Role Phone Alfonso Sierra Primary Care [...] Problem Other ascites (R18.8) Active confirmed Ascites (287705399) VITAL SIGNS BMI 21.80 kg/m2 10/14/2024 Blood pressure systolic 82 mm Hg 12/12/20 24 Blood pressure diastolic 58 mm Hg 024 Height 64 in 10/14/2024 Weight 127 lbs 10/14/2024 Encounters Encounter Location Date Provider Diagnosis Alfonso Sierra MD [address] [place] [address] [place] [phone] 10/14/2024 Alfonso Sierra Seizure disorder G40.909 ; [...] Reason: Provider Name:Alfonso martinez, 11/16/2024 11:15:00 AM, [address] [place] [address], [address], [phone], Provider Name:Alfonso martinez, 03/10/2025 07:45:00 AM, [address] [place] [address], [address], [phone], Provider Name:Alfonso martinez, 03/17/2025 11:00:00 AM, [address] [place] [address], [address], [phone], Progress Notes * Examination Category Sub-Category Detail Notes General Examination GENERAL APPEARANCE: well dev eloped, well nourished HEART: no murmurs, rubs, ga llops , regular rate and rhythm LUNGS: no wheezes, rales, r honchi , good air movement , clear to auscultation bilaterally SKIN: good turgor
--- OUTSIDE RECORDS SUMMARY | 2024-10-26 08:48 | XMS_ITS | Patient Health Record ---
Author Organization Alfonso Sierra MD Address [address] [place], [place] [id number] Care Team Providers Care Lye Boiler Name Role Phone Rigo Alfonso Primary Care Provider [phone] ALLERGIES No Known Allergies RESULTS Component Value Reference Range Notes Complete Blood Count Auto Di ff Reviewed date:01/11/2024 01:28:45 PM Interpretation: Performing Lab:[facility], [address] [place] [phone] Notes/Report: White Blood Count 7.0 4.8-10.8 X10*3/uL [...] NRBC Abs Auto 0.000 0.0-0.012 X10*3/uL Comprehensive [place]. Panel Fa st Reviewed date:01/11/2024 01:28:24 PM Interpretation: Performing Lab:[facility], [address] [place] [phone] Notes/Report: Sodium 139 135-145 mmol/L Potassium 4.1 3.3-5.1 mmol/L Chloride 101 96-108 mmol/L Carbon Dioxide 31 22-29 mmol/L Anion Gap 11 12-20 Blood Urea Nitrogen 13 9-16 mg/dL Creatinine 0.73 0.5-1.4 mg/dL Estimated Glomerular Filt Rate > 60 NOTE: For -Bolivian individuals, multiply the result by 1.210. Chronic [...] date:01/15/2024 11:36:33 AM Interpretation: Performing Lab: Notes/Report: [address] [address] Magnetic Resonance Report Signed Patient: Javi Smith MR#: [id number] 8 : 1985 Acct:[id number] Age/Sex: 38 / M ADM Date: 01/10/24 Loc: HO.MRI Attending Dr: Vasu LEE Ordering Physician: Vasu Nevarez Date of Service: 01/10/24 Procedure(s): MR lumbar spine wo con Accession Number(s): [id number] cc: Alfonso Sierra MD; Vasu Nevarez EXAMINATION: [...] in OV> 01/15/24 1002 DD/ 1120 TD/TT: Concrete Tile Machine Operator: MR thoracic spine wo con Reviewed date:01/15/2024 11:37:05 AM Interpretation: Performing Lab: Notes/Report: [address] [address] Magnetic Resonance Report Signed Patient: Javi Smith MR#: [id number] 8 : 1985 Acct:[id number] Age/Sex: 38 / M ADM Date: 01/10/24 Loc: HO.MRI Attending Dr: Vasu LEE Ordering Physician: Vasu Nevarez Date of Service: 01/10/24 Procedure(s): MR thoracic spine wo con Accession Number(s): [id number] cc: Alfonso Sierra MD; Vasu Nevarez EXAMINATION: [...] in OV> 01/15/24 1002 DD/ 1035 TD/TT: Concrete Tile Machine Operator: XR DEXA axial skeleton Reviewed date:01/15/2024 02:37:38 PM Interpretation: Performing Lab: Notes/Report: [facility] [place] [address] Mammography Report Signed Patient: Javi Smith MR#: [id number] 8 : 1985 Acct:[id number] Age/Sex: 38 / M ADM Date: 01/14/24 Loc: HO.MAMMO Attending Dr: Boo Foster MD Ordering Physician: Boo Foster MD Results: Date of Service: 01/14/24 Follow Up: Procedure(s): XR DEXA axial skeleton Accession Number(s): [id number] cc: Alfonso Sierra MD; Boo Foster MD EXAMINATION: BONE DENSITOMETRY CLINICAL INDICATION: Collapsed vertebra, not elsewhere classified, site unspecified. COMPARISON: This is the patient's baseline examination. TECHNIQUE: Using a [employer] DXA System (software version: 13.1) manufactured by [employer], dual-energy x-ray absorptiometry was performed of the [...] in OV> 01/15/24 1343 DD/ 1415 TD/TT: Concrete Tile Machine Operator: FIDE MRSA Nasal Screen Reviewed date:02/05/2024 04:08:36 PM Interpretation: Performing Lab:[facility], [address] [place] [phone] Notes/Report: MRSA Nasal PCR NEGATIVE Negative SA Nasal PCR NEGATIVE Negative MRSA Interpretation SEE NOTE MRSA target DNA not detected; SA target DNA not detected. A MRSA NEGATIVE, SA NEGATIVE test result does not preclude MRSA or SA nasal colonization. FL guidance in OR Reviewed date:02/17/2024 12:21:29 PM Interpretation: Performing Lab: Notes/Report: [address] [address] Fluoroscopy Report Signed Patient: Javi Smith MR#: [id number] 8 : 1985 Acct:[id number] Age/Sex: 39 / M ADM Date: 02/05/24 Loc: HO.SSS Attending Dr: Boo Foster MD Ordering Physician: Boo Foster MD Date of Service: 02/05/24 Procedure(s): FL guidance in OR Accession Number(s): [id number] cc: Alfonso Sierra MD; Boo Foster MD [...] MD Signed By: <Electronically signed by Javi rOr MD in OV> 02/17/24 1105 DD/ 1640 TD/TT: Concrete Tile Machine Operator: BRNADIE Lundberg Reviewed date:03/04/2024 12:27:11 PM Interpretation: Performing Lab:[facility], [address] [place] [phone] Notes/Report: Jonathan Lundberg See Note Specimen held untested for 24 hours; Call to request Chemistry testing. Complete Blood Count Auto Di ff Reviewed date:03/04/2024 12:49:25 PM Interpretation: Performing Lab:[facility], [address] [place] [phone] Notes/Report: White Blood Count 5.0 4.8-10.8 X10*3/uL [...] NRBC Abs Auto 0.000 0.0-0.012 X10*3/uL Comprehensive [place]. Panel Fa st Reviewed date:03/04/2024 12:49:42 PM Interpretation: Performing Lab:[facility], [address] [place] [address], [place] [address] Notes/Report: Sodium 138 135-145 mmol/L Potassium 4.0 3.3-5.1 mmol/L Chloride 103 96-108 mmol/L Carbon Dioxide 26 22-29 mmol/L Anion Gap 13 12-20 Blood Urea Nitrogen 15 9-16 mg/dL Creatinine 0.69 0.5-1.4 mg/dL Estimated Glomerular Filt Rate > 60 NOTE: For -Bolivian individuals, multiply the result by 1.210. Chronic [...] Panel Reviewed date:03/04/2024 12:33:37 PM Interpretation: Performing Lab:[address] [phone] Notes/Report: Triglycerides 85 <150 mg/dL Desirable Triglyceride: [...] t Reviewed date:03/04/2024 12:50:46 PM Interpretation: Performing Lab:[address] [phone] Notes/Report: Urine, Clean Catch Color Urine Dark Yellow Appearance Urine Clear PH 6.0 5.0-9.0 Glucose Urine UA Negative Negative mg/dL Urine Blood Negative Negative Specific Neely - Urine >= 1.030 1.005-1.025 Urine Protein Negative Neg-Trace mg/dL Urine Ketones Negative Negative mg/dL Nitrite Urine Negative Negative Leukocyte Esterase Urine Negative Negative RBC Urine 0-2 0-2 /HPF WBC Urine 0-5 0-5 /HPF Squamous Epithelial Cell Urine 0-2 0-2 /HPF Bacteria Urine None Seen None Seen Hyaline Casts Urine 0-2 0-2 /LPF Hold Green Gel Reviewed date:03/11/2024 05:09:57 PM Interpretation: Performing Lab:[facility], [address] [place] [phone] Notes/Report: Hold Green Gel See Note Specimen held untested for 24 hours; Call to request Chemistry testing. PSA,Total (Free>4and<10) Reviewed date:03/12/2024 08:18:53 AM Interpretation: Performing Lab:[facility], [address] [place] [phone] Notes/Report: PSA,Total (Free>4and<10) 0.99 0.00-4.00 ng/mL A [...] ff Reviewed date:03/30/2024 12:24:52 PM Interpretation: Performing Lab:[facility], [address] [place] [phone] Notes/Report: White Blood Count 15.1 4.8-10.8 X10*3/uL [...] CBC Reviewed date:03/30/2024 12:24:29 PM Interpretation: Performing Lab:[address] [address] Notes/Report: Pathologist Review - CBC SEE NOTE White blood cells are increased in number and consist mostly of mature granulocytes; rare left-shifted forms with toxic vacuoles are seen. - Alec Bryant M.D. Pathology Prothrombin Time INR Reviewed date:03/29/2024 01:42:16 PM Interpretation: Performing Lab:[facility], [address] [place] [phone] Notes/Report: Prothrombin Time 12.1 11.1-13.3 SEC INTERNATIONAL [...] Time Reviewed date:03/29/2024 01:45:49 PM Interpretation: Performing Lab:[facility], [address] [place] [phone] Notes/Report: Partial Thromboplastin Time 34.0 26.0-36.8 SEC For information regarding the monitoring of direct thrombin inhibitors, please refer to Pharmacy. Hold Lt Blue - Possible Coag Reviewed date:03/29/2024 01:32:57 PM Interpretation: Performing Lab:[facility], [address] [place] [phone] Notes/Report: Hold Lt Blue - Possible Coag SEE NOTE Specimen will be held untested for 4 hours. Call Hematology if testing is desired. Comprehensive Met. Panel Reviewed date:03/30/2024 08:40:41 AM Interpretation: Performing Lab:[facility], [address] [place] [phone] Notes/Report: Sodium 146 135-145 mmol/L Potassium 3.3 [...] Glomerular Filt Rate > 60 NOTE: For -Bolivian individuals, multiply the result by 1.210. Chronic [...] Acid Reviewed date:03/29/2024 01:32:21 PM Interpretation: Performing Lab:[facility], [address] [place] [phone] Notes/Report: Lactic Acid 15.2 0.5-2.0 mmol/L Critical value for test LACTIC: Results called to and read back by: FLEMINK Person calling: GALENSA Date: 03/28/24 Time: 1058 Magnesium Reviewed date:03/29/2024 01:38:27 PM Interpretation: Performing Lab:[facility], [address] [place] [phone] Notes/Report: Magnesium 2.3 1.6-2.6 mg/dL Ammonia Reviewed date:03/29/2024 01:30:42 PM Interpretation: Performing Lab:[facility], [address] [place] [phone] Notes/Report: Ammonia 175 13-55 umol/L Glucose, Whole Blood Reviewed date:03/29/2024 01:32:34 PM Interpretation: Performing Lab:[facility], [address] [place] [phone] Notes/Report: Glucose, Whole Blood 121 60-115 mg/dL METER # : [id number] Drug Screen Urine Reviewed date:03/29/2024 01:30:20 PM Interpretation: Performing Lab:[facility], [address] [place] [phone] Notes/Report: Opiate Screen Urine Not Detected Not [...] Culture Reviewed date:03/30/2024 12:25:06 PM Interpretation: Performing Lab:[facility], [address] [place] [phone] Notes/Report: Urine Culture No growth. SARS-CoV2/FLU/RSV Reviewed date:03/29/2024 01:30:56 PM Interpretation: Performing Lab:[facility], [address] [place] [phone] Notes/Report: Influenza A PCR NEGATIVE Negative Influenza [...] by authorized laboratories. Testing performed on the [employer] GeneXpert utilizing real-time RT-PCR. All SARS CoV2 and positive influenza A/B results are reported to [facility]. Blood Culture (First) Reviewed date:03/31/2024 04:43:32 PM Interpretation: Performing Lab:[facility], [address] [place] [phone] Notes/Report: Blood Culture (First) BC Positive/Drawn Results [...] (Second) Reviewed date:03/31/2024 04:43:32 PM Interpretation: Performing Lab:[facility], [address] [place] [phone] Notes/Report: Blood Culture (Second) Results of Blood [...] (Second) Gram stain review ed by a Laboratory Veterinarian Results of Blood Culture gram stain sent [...] ONLY Reviewed date:03/29/2024 01:31:10 PM Interpretation: Performing Lab:[facility], [address] [place] [phone] Notes/Report: Lactic Acid-LAB USE ONLY 1.1 0.5-2.0 mmol/L UA ClnCatch+Micro w/rflx Cul t Reviewed date:03/30/2024 12:44:37 PM Interpretation: Performing Lab:[facility], [address] [place] [phone] Notes/Report: [id number] Urine, Catheterized Color Urine Dark Yellow Appearance Urine Clear PH 6.0 5.0-9.0 Glucose Urine UA Negative Negative mg/dL Urine Blood Negative Negative Specific [place] - Urine >= 1.030 1.005-1.025 Urine Protein [...] POC Reviewed date:03/29/2024 01:29:51 PM Interpretation: Performing Lab:[facility], [address] [place] [phone] Notes/Report: VBG pH 6.96 7.32-7.43 METER #: [id number] additional_comment: nabil robbins flemink VBG pCO2 64 METER #: [id number] additional_comment: nabil robbins flemink VBG pO2 60 METER #: [id number] additional_comment: nabil robbins flemink VBG Base Excess -18.2 METER #: [id number] additional_comment: nabil robbins flemink VBG HCO3 14 22-26 mmol/L METER #: [id number] additional_comment: nabil robbins flemink VBG O2 % Saturation 72.0 METER #: [id number] additional_comment: nabil robbins flemink Hold Green Gel Reviewed date:03/29/2024 01:32:47 PM Interpretation: Performing Lab:[facility], [address] [place] [phone] Notes/Report: Hold Green Gel See Note Specimen held untested for 24 hours; Call to request Chemistry testing. CT thoracic spine w con Reviewed date:03/29/2024 01:35:31 PM Interpretation: Performing Lab: Notes/Report: [address] [address] [address] Scan Report Signed Patient: Javi Smith MR#: [id number] 8 : 1985 Acct:[id number] Age/Sex: 39 / M ADM Date: 03/28/24 Loc: HO.ED Attending Dr: Ordering Physician: Nita Garza Date of Service: 03/28/24 Procedure(s): CT thoracic spine w IV con Accession Number(s): [id number] cc: Alfonso Sierra MD; Nita Garza EXAMINATION: CT THORACIC SPINE WITH CONTRAST CT LUMBAR SPINE WITH CONTRAST CLINICAL INFORMATION: Recent surgery, altered mental status. COMPARISON: Plain films of the lumbar spine earlier. MRI scan of the lumbar and thoracic spines 01/10/2024. CT scan of the thoracic spine [facility] 12/27/2023. 03/28/2024 TECHNIQUE: Thoracic spine, which [...] in OV> 03/28/24 1437 DD/ 1153 TD/TT: Concrete Tile Machine Operator: MARLY CT lumbar spine w con Reviewed date:03/29/2024 01:25:55 PM Interpretation: Performing Lab: Notes/Report: [address] [address] [address] Scan Report Signed Patient: Javi Smith MR#: [id number] 8 : 1985 Acct:[id number] Age/Sex: 39 / M ADM Date: 03/28/24 Loc: HO.ED Attending Dr: Ordering Physician: Nita Garza Date of Service: 03/28/24 Procedure(s): CT lumbar spine w IV con Accession Number(s): [id number] cc: Alfonso Sierra MD; Nita Garza EXAMINATION: CT THORACIC SPINE WITH CONTRAST CT LUMBAR SPINE WITH CONTRAST CLINICAL INFORMATION: Recent surgery, altered mental status. COMPARISON: Plain films of the lumbar spine earlier. MRI scan of the lumbar and thoracic spines 01/10/2024. CT scan of the thoracic spine [facility] 12/27/2023. 03/28/2024 TECHNIQUE: Thoracic spine, which [...] in OV> 03/28/24 1437 DD/ 1153 TD/TT: Concrete Tile Machine Operator: MARLY CT cervical spine wo con Reviewed date:03/29/2024 01:34:23 PM Interpretation: Performing Lab: Notes/Report: [address] [address] [address] Scan Report Signed Patient: Javi Smith MR#: [id number] 8 : 1985 Acct:[id number] Age/Sex: 39 / M ADM Date: 03/28/24 Loc: HO.ED Attending Dr: Ordering Physician: Nita Garza Date of Service: 03/28/24 Procedure(s): CT cervical spine wo IV con Accession Number(s): [id number] cc: Alfonso Sierra MD; Nita Garza EXAMINATION: [...] in OV> 03/28/24 1218 DD/ 1153 TD/TT: Concrete Tile Machine Operator: CT head/brain wo con Reviewed date:03/29/2024 01:34:51 PM Interpretation: Performing Lab: Notes/Report: [address] [address] [address] Scan Report Signed Patient: Javi Smith MR#: [id number] 8 : 1985 Acct:[id number] Age/Sex: 39 / M ADM Date: 03/28/24 Loc: HO.ED Attending Dr: Ordering Physician: Nita Garza Date of Service: 03/28/24 Procedure(s): CT head/brain wo IV con Accession Number(s): [id number] cc: Alfonso Sierra MD; Nita Garza EXAMINATION: [...] in OV> 03/28/24 1218 DD/ 1153 TD/TT: Concrete Tile Machine Operator: US abdomen limited Reviewed date:03/29/2024 01:36:52 PM Interpretation: Performing Lab: Notes/Report: [address] [address] Ultrasound Report Signed Patient: Javi Smith MR#: [id number] 8 : 1985 Acct:[id number] Age/Sex: 39 / M ADM Date: 03/28/24 Loc: HO.ED Attending Dr: Ordering Physician: Nita Garza Date of Service: 03/28/24 Procedure(s): US abdomen limited Accession Number(s): [id number] cc: Alfonso Sierra MD; Nita Garza EXAMINATION: [...] Ramirez MD Signed By: <Electronically signed by oRsana Ramirez MD in OV> 03/28/24 1322 DD/ 1230 TD/TT: Concrete Tile Machine Operator: HS XR chest 1V Reviewed date:03/29/2024 01:31:39 PM Interpretation: Performing Lab: Notes/Report: [place] [address] XRay Report Signed Patient: Javi Smith MR#: [id number] 8 : 1985 Acct:[id number] Age/Sex: 39 / M ADM Date: 03/28/24 Loc: HO.ED Attending Dr: Ordering Physician: Nita Garza Date of Service: 03/28/24 Procedure(s): XR chest 1V Accession Number(s): [id number] cc: Alfonso Sierra MD; Nita Garza EXAMINATION: [...] in OV> 03/28/24 1248 DD/ 1152 TD/TT: Concrete Tile Machine Operator: XR lumbar spine 2-3V Reviewed date:03/29/2024 01:41:09 PM Interpretation: Performing Lab: Notes/Report: [address] [address] XRay Report Signed Patient: Javi Smith MR#: [id number] 8 : 1985 Acct:[id number] Age/Sex: 39 / M ADM Date: 03/28/24 Loc: HO.ED Attending Dr: Ordering Physician: Generic ED Physician Date of Service: 03/28/24 Procedure(s): XR lumbar spine 2-3V Accession Number(s): [id number] cc: Alfonso Sierra MD; Generic ED Physician [...] in OV> 03/28/24 1019 DD/ 1000 TD/TT: Concrete Tile Machine Operator: Complete Blood Count no Diff Reviewed date:03/30/2024 12:44:16 PM Interpretation: Performing Lab:[facility], [address] [place] [phone] Notes/Report: White Blood Count 13.0 4.8-10.8 X10*3/uL [...] Panel Reviewed date:03/29/2024 01:46:19 PM Interpretation: Performing Lab:[facility], [address] [place] [phone] Notes/Report: Sodium 140 135-145 mmol/L Potassium 4.2 [...] Glomerular Filt Rate > 60 NOTE: For -Bolivian individuals, multiply the result by 1.210. Chronic [...] Ammonia Reviewed date:03/29/2024 01:28:35 PM Interpretation: Performing Lab:[address] [address] Notes/Report: Ammonia 50 13-55 umol/L Complete Blood Count no Diff Reviewed date:03/30/2024 09:06:07 AM Interpretation: Performing Lab:[address] [address] Notes/Report: White Blood Count 15.1 4.8-10.8 X10*3/uL [...] Panel Reviewed date:03/30/2024 08:39:40 AM Interpretation: Performing Lab:[address] [address] Notes/Report: Bilirubin Total 1.9 0.0-1.0 mg/dL Bilirubin Direct 0.7 0.0-0.5 mg/dL Aspartate Amino Transferase 51 5-37 U/L Alanine Aminotransferase 106 0-40 U/L Total Protein 8.5 6.5-8.0 g/dL Albumin Level 4.4 3.5-5.0 g/dL Alkaline Phosphatase 424 39-117 U/L Basic Metabolic Panel Fastin g Reviewed date:03/30/2024 12:41:10 PM Interpretation: Performing Lab:[facility], [address] [place] [phone] Notes/Report: Sodium 141 135-145 mmol/L Potassium 4.1 [...] Glomerular Filt Rate > 60 NOTE: For -Bolivian individuals, multiply the result by 1.210. Chronic Kidney Disease: Estimated GFR < 60 mL/min/1.73m2 Severe Kidney Disease: Estimated GFR < 15 mL/min/1.73m2 Glucose Fasting 186 60-99 mg/dL A fasting glucose of 126 mg/dl or greater on more than one occasion is considered diagnostic of diabetes. Calcium 10.7 8.4-10.2 mg/dL Lactic Acid Reviewed date:03/30/2024 08:39:18 AM Interpretation: Performing Lab:[facility], [address] [place] [phone] Notes/Report: Lactic Acid 2.7 0.5-2.0 mmol/L Critical lactic sent by a secure message and confirmed by tay anthony 03/30/24 0823 Tech: [email or web address] Magnesium Reviewed date:03/30/2024 08:40:19 AM Interpretation: Performing Lab:[address] [address] Notes/Report: Magnesium 2.3 1.6-2.6 mg/dL Ammonia Reviewed date:03/30/2024 08:42:38 AM Interpretation: Performing Lab:[address] [address] Notes/Report: Ammonia 70 13-55 umol/L Lipase Reviewed date:03/30/2024 08:40:07 AM Interpretation: Performing Lab:[facility], [address] [place] [phone] Notes/Report: Lipase 11 8-78 U/L Blood Culture (First) Reviewed date:04/04/2024 06:08:26 PM Interpretation: Performing Lab:[facility], [address] [place] [phone] Notes/Report: Blood Culture (First) No growth after 5 days. Blood Culture (Second) Reviewed date:04/04/2024 06:08:26 PM Interpretation: Performing Lab:[facility], [address] [place] [phone] Notes/Report: Blood Culture (Second) No growth after 5 days. Lactic Acid-LAB USE ONLY Reviewed date:03/30/2024 12:20:53 PM Interpretation: Performing Lab:[facility], [address] [place] [phone] Notes/Report: Lactic Acid-LAB USE ONLY 2.9 0.5-2.0 mmol/L Critical lactic sent by a secure message and confirmed by Tay Anthony 1044 03/30/24 Tech: natan Cancel Lactic Acid Reviewed date:03/30/2024 12:12:11 PM Interpretation: Performing Lab:[facility], [address] [place] [phone] Notes/Report: Cancel Lactic Acid Canceled Gastric Occult Blood Test Reviewed date:03/30/2024 08:42:53 AM Interpretation: Performing Lab:[facility], [address] [place] [phone] Notes/Report: Occult Blood Gastric POSITIVE NEG CT abdomen pelvis w con Reviewed date:03/30/2024 12:14:13 PM Interpretation: Performing Lab: Notes/Report: [address] [place] [address] CT Scan Report Signed Patient: Javi Smith MR#: [id number] 8 : 1985 Acct:[id number] Age/Sex: 39 / M ADM Date: 03/28/24 Loc: [facility] 474-[address]: Tay Anthony MD Ordering Physician: Maritza Etienne MD Date of Service: 03/30/24 Procedure(s): CT abdomen pelvis w IV con Accession Number(s): [id number] cc: Alfonso Sierra MD; Maritza Etienne MD [...] in OV> 03/30/24 1052 DD/ 1014 TD/TT: Concrete Tile Machine Operator: XR chest 1V Reviewed date:03/31/2024 04:43:32 PM Interpretation: Performing Lab: Notes/Report: [place] [address] XRay Report Signed Patient: Javi Smith MR#: [id number] 8 : 1985 Acct:[id number] Age/Sex: 39 / M ADM Date: 03/28/24 Loc: [facility] 474-[address]: Tay Anthony MD Ordering Physician: Tay Anthony MD Date of Service: 03/30/24 Procedure(s): XR chest 1V Accession Number(s): [id number] cc: Alfonso Sierra MD; Tay Anthony MD [...] MD in OV> 03/30/242100 DD/ 49 TD/TT: Concrete Tile Machine Operator: Complete Blood Count no Diff Reviewed date:03/31/2024 04:43:32 PM Interpretation: Performing Lab:[facility], [address] [place] [phone] Notes/Report: White Blood Count 15.1 4.8-10.8 X10*3/uL [...] ff Reviewed date:03/31/2024 04:43:32 PM Interpretation: Performing Lab:[facility], [address] [place] [phone] Notes/Report: White Blood Count 14.0 4.8-10.8 X10*3/uL [...] Panel Reviewed date:03/31/2024 04:43:32 PM Interpretation: Performing Lab:[facility], [address] [place] [phone] Notes/Report: Sodium 141 135-145 mmol/L Potassium 4.3 [...] Glomerular Filt Rate > 60 NOTE: For -Bolivian individuals, multiply the result by 1.210. Chronic [...] Panel Reviewed date:03/31/2024 04:43:32 PM Interpretation: Performing Lab:[facility], [address] [place] [phone] Notes/Report: Bilirubin Total 2.0 0.0-1.0 mg/dL Bilirubin Direct 0.7 0.0-0.5 mg/dL Aspartate Amino Transferase 63 5-37 U/L Alanine Aminotransferase 80 0-40 U/L Total Protein 8.1 6.5-8.0 g/dL Albumin Level 4.2 3.5-5.0 g/dL Alkaline Phosphatase 337 39-117 U/L Basic Metabolic Panel Reviewed date:03/31/2024 04:43:32 PM Interpretation: Performing Lab:[facility], [address] [place] [phone] Notes/Report: Sodium 143 135-145 mmol/L Potassium 4.4 [...] Glomerular Filt Rate > 60 NOTE: For -Bolivian individuals, multiply the result by 1.210. Chronic Kidney Disease: Estimated GFR < 60 mL/min/1.73m2 Severe Kidney Disease: Estimated GFR < 15 mL/min/1.73m2 Glucose Random 129 60-115 mg/dL Calcium 10.5 8.4-10.2 mg/dL Basic Metabolic Panel Fastin g Reviewed date:03/31/2024 04:43:32 PM Interpretation: Performing Lab:[facility], [address] [place] [phone] Notes/Report: Sodium 141 135-145 mmol/L Potassium 4.5 [...] Glomerular Filt Rate > 60 NOTE: For -Bolivian individuals, multiply the result by 1.210. Chronic Kidney Disease: Estimated GFR < 60 mL/min/1.73m2 Severe Kidney Disease: Estimated GFR < 15 mL/min/1.73m2 Glucose Fasting 147 60-99 mg/dL A fasting glucose of 126 mg/dl or greater on more than one occasion is considered diagnostic of diabetes. Calcium 10.7 8.4-10.2 mg/dL Lactic Acid Reviewed date:03/31/2024 04:43:32 PM Interpretation: Performing Lab:[facility], [address] [place] [phone] Notes/Report: Lactic Acid 2.7 0.5-2.0 mmol/L Critical [LACTA] sent by a secure message and confirmed by (ARACELI REYNOSO AND CORI REGAN ON [id number] @0056) Tech:HO.VYASRID Phosphorus Reviewed date:03/31/2024 04:43:32 PM Interpretation: Performing Lab:[facility], [address] [place] [phone] Notes/Report: Phosphorus 4.1 2.7-4.5 mg/dL Magnesium Reviewed date:03/31/2024 04:43:32 PM Interpretation: Performing Lab:[facility], [address] [place] [phone] Notes/Report: Magnesium 2.4 1.6-2.6 mg/dL Ammonia Reviewed date:03/31/2024 04:43:32 PM Interpretation: Performing Lab:[address] [address] Notes/Report: Ammonia 82 13-55 umol/L Troponin-I High Sensitivity Reviewed date:03/31/2024 04:43:32 PM Interpretation: Performing Lab:[address] [address] Notes/Report: Troponin-I High Sensitivity 59.9 <3.5-35.0 ng/ L The Vega high sensitivity Troponin-I results should be used in conjunction with other diagnostic information such as ECG, clinical observations and information, and patient symptoms to aid in the diagnosis of DE. B Type Natriuretic Peptide Reviewed date:03/31/2024 04:43:32 PM Interpretation: Performing Lab:[address] [address] Notes/Report: B Type Natriuretic Peptide 224 <100 pg/mL For those patients who are being treated with Natrecor (nesiritide, recombinant BNP), BNP testing should be performed at least two hours post treatment in order to ensure that only endogenous levels of BNP are detected. TSH reflex Free T4 Reviewed date:03/31/2024 04:43:32 PM Interpretation: Performing Lab:[address] [address] Notes/Report: TSH reflex Free T4 1.47 0.32-4.0 uIU/mL Vancomycin Random Reviewed date:03/31/2024 04:43:32 PM Interpretation: Performing Lab:[address] [address] Notes/Report: Vancomycin Random 15.9 15-20 mcg/mL Lactic Acid-LAB USE ONLY Reviewed date:03/31/2024 04:43:32 PM Interpretation: Performing Lab:[address] [address] Notes/Report: Lactic Acid-LAB USE ONLY 2.3 0.5-2.0 mmol/L Critical[LACTA] sent by a secure message and confirmed by (DR.JEISA BYNUM [facility] ON [id number] @ 0310) Tech:VYASRID Venous Blood Gases - POC Reviewed date:03/31/2024 04:43:32 PM Interpretation: Performing Lab:[facility], [address] [place] [phone] Notes/Report: VBG pH 7.40 7.32-7.43 METER #: [id number] additional_comment: Nabil vital VBG pCO2 42 METER #: [id number] additional_comment: Nabil vital VBG pO2 46 METER #: [id number] additional_comment: Nabil vital VBG Base Excess 1.8 METER #: [id number] additional_comment: Nabil vital VBG HCO3 26 22-26 mmol/L METER #: [id number] additional_comment: Nabil vital VBG O2 % Saturation 76.0 METER #: [id number] additional_comment: Nabil vital Lactic Acid-LAB USE ONLY Reviewed date:03/31/2024 04:43:32 PM Interpretation: Performing Lab:[facility], [address] [place] [phone] Notes/Report: Lactic Acid-LAB USE ONLY 2.2 0.5-2.0 mmol/L Critical [LACTIC] sent by a secure message and confirmed by (Dr. Thomas, 03/31/24 0734) Tech: GALENSA Cancel Lactic Acid Reviewed date:03/31/2024 04:43:32 PM Interpretation: Performing Lab:[facility], [address] [place] [phone] Notes/Report: Cancel Lactic Acid Canceled XR KUB Reviewed date:03/31/2024 04:43:32 PM Interpretation: Performing Lab: Notes/Report: [address] [address] XRay Report Signed Patient: Javi Smith MR#: [id number] 8 : 1985 Acct:[id number] Age/Sex: 39 / M ADM Date: 03/28/24 Loc: [facility] 474-[address]: Jose Thomas MD Ordering Physician: Jose Thomas MD Date of Service: 03/31/24 Procedure(s): XR KUB Accession Number(s): [id number] cc: Jose Thomas MD; Alfonso Sierra MD EXAMINATION: XR ABDOMEN KUB CLINICAL INDICATION: Follow-up obstruction versus ileus COMPARISON: Rig Manager film from CT dated 03/30/2024 TECHNIQUE: AP [...] in OV> 03/31/24 1340 DD/ 1109 TD/TT: Concrete Tile Machine Operator: GT Magnesium Reviewed date:03/31/2024 04:43:32 PM Interpretation: Performing Lab:[address] [address] Notes/Report: Magnesium 2.5 1.6-2.6 mg/dL Complete Blood Count Auto Di ff Reviewed date:04/01/2024 07:12:33 PM Interpretation: Performing Lab:[facility], [address] [place] [phone] Notes/Report: White Blood Count 12.1 4.8-10.8 X10*3/uL [...] Panel Reviewed date:04/01/2024 07:12:33 PM Interpretation: Performing Lab:[facility], [address] [place] [phone] Notes/Report: Sodium 146 135-145 mmol/L Potassium 3.9 [...] Glomerular Filt Rate > 60 NOTE: For -Bolivian individuals, multiply the result by 1.210. Chronic [...] Magnesium Reviewed date:04/01/2024 04:52:53 PM Interpretation: Performing Lab:[facility], [address] [place] [phone] Notes/Report: Magnesium 2.3 1.6-2.6 mg/dL Complete Blood Count no Diff Reviewed date:04/01/2024 04:51:40 PM Interpretation: Performing Lab:[facility], [address] [place] [phone] Notes/Report: White Blood Count 10.4 4.8-10.8 X10*3/uL [...] gy Reviewed date:04/01/2024 12:31:19 PM Interpretation: Performing Lab:[facility], [address] [place] [phone] Notes/Report: Hold Lav - Possible Hematology SEE NOTE Specimen will be held untested for 8 hours. Call Hematology if testing is desired. Prothrombin Time INR Reviewed date:04/01/2024 07:12:33 PM Interpretation: Performing Lab:[address] [address] Notes/Report: Prothrombin Time 14.7 11.1-13.3 SEC INTERNATIONAL [...] Drip Reviewed date:04/01/2024 07:12:33 PM Interpretation: Performing Lab:[facility], [address] [place] [phone] Notes/Report: PTT Heparin Drip 29.5 53-77.9 SEC For information regarding the monitoring of heparin therapy, please refer to Pharmacy. Basic Metabolic Panel Reviewed date:04/01/2024 04:57:03 PM Interpretation: Performing Lab:[facility], [address] [place] [phone] Notes/Report: Sodium 146 135-145 mmol/L Potassium 3.8 [...] Glomerular Filt Rate > 60 NOTE: For -Bolivian individuals, multiply the result by 1.210. Chronic Kidney Disease: Estimated GFR < 60 mL/min/1.73m2 Severe Kidney Disease: Estimated GFR < 15 mL/min/1.73m2 Glucose Random 133 60-115 mg/dL Calcium 9.5 8.4-10.2 mg/dL Creatinine Reviewed date:04/01/2024 04:50:56 PM Interpretation: Performing Lab:[facility], [address] [place] [phone] Notes/Report: Creatinine 0.86 0.5-1.4 mg/dL Creatinine Clr Calc Pharmacy 98.4 eGFR (calculated from the MDRD study equation) and eCrCl (calculated from the Cockcroft-Gault equation) are based on different parameters and may not yield comparable results. If eCrCl result is absurd, please check patient's height/weight. Estimated Glomerular Filt Rate > 60 NOTE: For -Bolivian individuals, multiply the result by 1.210. Chronic Kidney Disease: Estimated GFR < 60 mL/min/1.73m2 Severe Kidney Disease: Estimated GFR < 15 mL/min/1.73m2 Troponin-I High Sensitivity Reviewed date:04/01/2024 07:12:33 PM Interpretation: Performing Lab:[facility], [address] [place] [phone] Notes/Report: Troponin-I High Sensitivity 37.4 <3.5-35.0 ng/ L The Vega high sensitivity Troponin-I results should be used in conjunction with other diagnostic information such as ECG, clinical observations and information, and patient symptoms to aid in the diagnosis of DE. B Type Natriuretic Peptide Reviewed date:04/01/2024 07:12:33 PM Interpretation: Performing Lab:[facility], [address] [place] [phone] Notes/Report: B Type Natriuretic Peptide 83 <100 pg/mL For those patients who are being treated with Natrecor (nesiritide, recombinant BNP), BNP testing should be performed at least two hours post treatment in order to ensure that only endogenous levels of BNP are detected. Vancomycin Trough Reviewed date:04/01/2024 07:12:33 PM Interpretation: Performing Lab:[facility], [address] [place] [phone] Notes/Report: Trough level should be drawn prior to dose number: 2hr before dose @2000 on 04/01 Vancomycin Trough 10.5 10.0-20.0 mcg/mL Arterial Blood Gases - POC Reviewed date:04/01/2024 01:48:15 PM Interpretation: Performing Lab:[facility], [address] [place] [phone] Notes/Report: ABG pH 7.46 7.35-7.45 METER #: [id number] additional_comment: Cbroncarr ctrbb abuhas ABG pCO2 35 32-45 mmHg METER #: [id number] additional_comment: Cbroncarr libanbb abuhas ABG pO2 52 83-108 mmHg METER #: [id number] additional_comment: Cbroncarr ctrbb abuhas ABG Base Excess 2.7 METER #: [id number] additional_comment: Cbroncarr ctrbb abuhas ABG HCO3 26 22-26 mmol/L METER #: [id number] additional_comment: Cbroncarr ctrbb abuhas ABG O2 % Saturation 81.0 METER #: [id number] additional_comment: Cbroncarr ctrbb abuhas D Dimer High Sensitivity Reviewed date:04/01/2024 12:36:11 PM Interpretation: Performing Lab:[facility], [address] [place] [phone] Notes/Report: D Dimer High Sensitivity 67166 D-DIMER HS REFERENCE RANGE Note: Our assay reports D-Dimer Units (D-DU). The cut-off value for venous thromboembolic (VTE) disease is 230 ng/mL. This value has a very high negative predictive value when the patient has a low to moderate clinical probability of VTE. The upper limit of normal is 243 ng/mL. Hold Green Gel Reviewed date:04/01/2024 12:31:29 PM Interpretation: Performing Lab:[facility], [address] [place] [phone] Notes/Report: Hold Green Gel See Note Specimen held untested for 24 hours; Call to request Chemistry testing. CT angio chest PE protocol Reviewed date:04/02/2024 12:30:33 PM Interpretation: Performing Lab: Notes/Report: [address] [address] [address] Scan Report Signed with Caprice Patient: Javi Smith MR#: [id number] 8 : 1985 Acct:[id number] Age/Sex: 39 / M ADM Date: 03/28/24 Loc: [facility] 252-[address]: Delano Rhodes MD Ordering Physician: Delano Rhodes MD Date of Service: 04/01/24 Procedure(s): CT angio chest PE protocol Accession Number(s): [id number] cc: Alfonso Sierra MD; Delano Rhodes MD [...] in OV> 04/01/24 1547 DD/ 1315 TD/TT: Concrete Tile Machine Operator: CT abdomen pelvis w con Reviewed date:04/02/2024 12:30:33 PM Interpretation: Performing Lab: Notes/Report: [address] [address] [address] Scan Report Signed with Caprice Patient: Javi Smith MR#: [id number] 8 : 1985 Acct:[id number] Age/Sex: 39 / M ADM Date: 03/28/24 Loc: .ICU 252-[address]: Delano Rhodes MD Ordering Physician: Delano Rhodes MD Date of Service: 04/01/24 Procedure(s): CT abdomen pelvis w IV con Accession Number(s): [id number] cc: Alfonso Sierra MD; Delano Rhodes MD [...] in OV> 04/01/24 1547 DD/ 1315 TD/TT: Concrete Tile Machine Operator: US venous duplex LE BI Reviewed date:04/01/2024 07:12:33 PM Interpretation: Performing Lab: Notes/Report: [address] [address] Ultrasound Report Signed Patient: Javi Smith MR#: [id number] 8 : 1985 Acct:[id number] Age/Sex: 39 / M ADM Date: 03/28/24 Loc: .ICU 252-[address]: Delano Rhodes MD Ordering Physician: Delano Rhodes MD Date of Service: 04/01/24 Procedure(s): US venous duplex LE BI Accession Number(s): [id number] cc: Alfonso Sierra MD; Delano Rhodes MD [...] in OV> 04/01/24 1735 DD/ 1701 TD/TT: Concrete Tile Machine Operator: NABIL HINTON chest 1V Reviewed date:04/01/2024 12:34:53 PM Interpretation: Performing Lab: Notes/Report: [address] [address] XRay Report Signed Patient: Javi Smith MR#: [id number] 8 : 1985 Acct:[id number] Age/Sex: 39 / M ADM Date: 03/28/24 Loc: [facility] 252-[address]: Delano Rhodes MD Ordering Physician: Jose Thomas MD Date of Service: 04/01/24 Procedure(s): XR chest 1V Accession Number(s): [id number] cc: Jose Thomas MD; Alfonso Sierra MD [...] in OV> 04/01/24 1123 DD/ 0928 TD/TT: Concrete Tile Machine Operator: PTT Heparin Drip Reviewed date:04/02/2024 12:30:33 PM Interpretation: Performing Lab:[facility], [address] [place] [phone] Notes/Report: PTT Heparin Drip 39.4 53-77.9 SEC For information regarding the monitoring of heparin therapy, please refer to Pharmacy. Complete Blood Count Auto Di ff Reviewed date:04/02/2024 12:30:33 PM Interpretation: Performing Lab:[facility], [address] [place] [phone] Notes/Report: White Blood Count 10.2 4.8-10.8 X10*3/uL [...] INR Reviewed date:04/02/2024 12:30:33 PM Interpretation: Performing Lab:[facility], [address] [place] [phone] Notes/Report: Prothrombin Time 17.1 11.1-13.3 SEC INTERNATIONAL [...] Drip Reviewed date:04/02/2024 12:30:33 PM Interpretation: Performing Lab:[facility], [address] [place] [phone] Notes/Report: PTT Heparin Drip 42.5 53-77.9 SEC For information regarding the monitoring of heparin therapy, please refer to Pharmacy. Comprehensive Met. Panel Reviewed date:04/02/2024 12:30:33 PM Interpretation: Performing Lab:[facility], [address] [place] [phone] Notes/Report: Sodium 150 135-145 mmol/L Potassium 3.7 [...] Glomerular Filt Rate > 60 NOTE: For -Bolivian individuals, multiply the result by 1.210. Chronic [...] Panel Reviewed date:04/04/2024 06:08:27 PM Interpretation: Performing Lab:[facility], [address] [place] [phone] Notes/Report: Sodium 145 135-145 mmol/L Potassium 3.4 [...] Glomerular Filt Rate > 60 NOTE: For -Bolivian individuals, multiply the result by 1.210. Chronic Kidney Disease: Estimated GFR < 60 mL/min/1.73m2 Severe Kidney Disease: Estimated GFR < 15 mL/min/1.73m2 Glucose Random 118 60-115 mg/dL Calcium 8.6 8.4-10.2 mg/dL Phosphorus Reviewed date:04/02/2024 12:30:33 PM Interpretation: Performing Lab:[facility], [address] [place] [phone] Notes/Report: Phosphorus 3.1 2.7-4.5 mg/dL Magnesium Reviewed date:04/02/2024 12:30:33 PM Interpretation: Performing Lab:[address] [address] Notes/Report: Magnesium 2.2 1.6-2.6 mg/dL Ammonia Reviewed date:04/02/2024 12:30:33 PM Interpretation: Performing Lab:[facility], [address] [place] [phone] Notes/Report: Ammonia 47 13-55 umol/L Slight Hemolysi s Venous Blood Gases - POC Reviewed date:04/02/2024 12:30:33 PM Interpretation: Performing Lab:[address] [address] Notes/Report: VBG pH 7.50 7.32-7.43 METER #: [id number] additional_comment: Nabil louiebb henric VBG pCO2 31 METER #: [id number] additional_comment: Nabil louiebb henric VBG pO2 88 METER #: [id number] additional_comment: Nabil louiebb henric VBG Base Excess 2.3 METER #: [id number] additional_comment: Nabil louiebb henric VBG HCO3 24 22-26 mmol/L METER #: [id number] additional_comment: Nabil louiebb henric VBG O2 % Saturation 98.0 METER #: [id number] additional_comment: Nabil robbins henric XR KUB Reviewed date:04/04/2024 06:08:27 PM Interpretation: Performing Lab: Notes/Report: [address] [place] [address] XRay Report Signed Patient: Javi Smith MR#: [id number] 8 : 1985 Acct:[id number] Age/Sex: 39 / M ADM Date: 03/28/24 Loc: [facility] 477-[address]: Jose Thomas MD Ordering Physician: Casimiro Bradley MD Date of Service: 04/02/24 Procedure(s): XR KUB Accession Number(s): [id number] cc: Alfonso Sierra MD; Casimiro Bradley MD [...] in OV> 04/02/24 1515 DD/ 0738 TD/TT: Concrete Tile Machine Operator: RHIANNA PTT Heparin Drip Reviewed date:04/02/2024 12:30:33 PM Interpretation: Performing Lab:[facility], [address] [place] [phone] Notes/Report: PTT Heparin Drip 54.6 53-77.9 SEC For information regarding the monitoring of heparin therapy, please refer to Pharmacy. PTT Heparin Drip Reviewed date:04/04/2024 06:08:27 PM Interpretation: Performing Lab:[facility], [address] [place] [phone] Notes/Report: Duplicate order. See CG28 PTT Heparin Drip 56.0 53-77.9 SEC For information regarding the monitoring of heparin therapy, please refer to Pharmacy. Complete Blood Count no Diff Reviewed date:04/04/2024 06:08:26 PM Interpretation: Performing Lab:[facility], [address] [place] [phone] Notes/Report: White Blood Count 9.0 4.8-10.8 X10*3/uL [...] ff Reviewed date:04/04/2024 06:08:26 PM Interpretation: Performing Lab:[facility], [address] [place] [phone] Notes/Report: White Blood Count 8.4 4.8-10.8 X10*3/uL [...] Drip Reviewed date:04/04/2024 06:08:26 PM Interpretation: Performing Lab:[facility], [address] [place] [phone] Notes/Report: PTT Heparin Drip 55.6 53-77.9 SEC For information regarding the monitoring of heparin therapy, please refer to Pharmacy. Comprehensive Met. Panel Reviewed date:04/04/2024 06:08:26 PM Interpretation: Performing Lab:[facility], [address] [place] [phone] Notes/Report: Sodium 142 135-145 mmol/L Potassium 3.4 [...] Glomerular Filt Rate > 60 NOTE: For -Bolivian individuals, multiply the result by 1.210. Chronic [...] Panel Reviewed date:04/04/2024 06:08:26 PM Interpretation: Performing Lab:[address] [address] Notes/Report: Sodium 141 135-145 mmol/L Potassium 3.1 [...] Glomerular Filt Rate > 60 NOTE: For -Bolivian individuals, multiply the result by 1.210. Chronic Kidney Disease: Estimated GFR < 60 mL/min/1.73m2 Severe Kidney Disease: Estimated GFR < 15 mL/min/1.73m2 Glucose Random 102 60-115 mg/dL Calcium 9.0 8.4-10.2 mg/dL Phosphorus Reviewed date:04/04/2024 06:08:27 PM Interpretation: Performing Lab:[address] [address] Notes/Report: Phosphorus 2.1 2.7-4.5 mg/dL Magnesium Reviewed date:04/04/2024 06:08:27 PM Interpretation: Performing Lab:[address] [address] Notes/Report: Magnesium 2.0 1.6-2.6 mg/dL Venous Blood Gases - POC Reviewed date:04/04/2024 06:08:27 PM Interpretation: Performing Lab:[address] [place] [address] Notes/Report: VBG pH 7.48 7.32-7.43 METER #: [id number] additional_comment: CB RIVEMAR VBG pCO2 38 METER #: [id number] additional_comment: CB RIVEMAR VBG pO2 59 METER #: [id number] additional_comment: CB RIVEMAR VBG Base Excess 5.0 METER #: [id number] additional_comment: CB RIVEMAR VBG HCO3 28 22-26 mmol/L METER #: [id number] additional_comment: CB RIVEMAR VBG O2 % Saturation 90.0 METER #: [id number] additional_comment: CB RIVEMAR PTT Heparin Drip Reviewed date:04/04/2024 06:08:26 PM Interpretation: Performing Lab:[facility], [address] [place] [phone] Notes/Report: PTT Heparin Drip 66.7 53-77.9 SEC For information regarding the monitoring of heparin therapy, please refer to Pharmacy. Complete Blood Count no Diff Reviewed date:04/05/2024 12:26:31 PM Interpretation: Performing Lab:[facility], [address] [place] [phone] Notes/Report: White Blood Count 5.9 4.8-10.8 X10*3/uL [...] Drip Reviewed date:04/05/2024 10:43:20 AM Interpretation: Performing Lab:[facility], [address] [place] [phone] Notes/Report: PTT Heparin Drip 70.0 53-77.9 SEC For information regarding the monitoring of heparin therapy, please refer to Pharmacy. Basic Metabolic Panel Reviewed date:04/05/2024 12:24:01 PM Interpretation: Performing Lab:[facility], [address] [place] [phone] Notes/Report: Sodium 139 135-145 mmol/L Potassium 3.5 [...] Glomerular Filt Rate > 60 NOTE: For -Bolivian individuals, multiply the result by 1.210. Chronic Kidney Disease: Estimated GFR < 60 mL/min/1.73m2 Severe Kidney Disease: Estimated GFR < 15 mL/min/1.73m2 Glucose Random 99 60-115 mg/dL Calcium 9.1 8.4-10.2 mg/dL B Type Natriuretic Peptide Reviewed date:04/05/2024 10:49:37 AM Interpretation: Performing Lab:[facility], [address] [place] [phone] Notes/Report: B Type Natriuretic Peptide 115 <100 pg/mL For those patients who are being treated with Natrecor (nesiritide, recombinant BNP), BNP testing should be performed at least two hours post treatment in order to ensure that only endogenous levels of BNP are detected. Complete Blood Count no Diff Reviewed date:04/06/2024 12:02:17 PM Interpretation: Performing Lab:[facility], [address] [place] [phone] Notes/Report: White Blood Count 9.2 4.8-10.8 X10*3/uL [...] Panel Reviewed date:04/06/2024 12:01:45 PM Interpretation: Performing Lab:[address] [address] Notes/Report: Sodium 140 135-145 mmol/L Potassium 3.9 [...] Glomerular Filt Rate > 60 NOTE: For -Bolivian individuals, multiply the result by 1.210. Chronic Kidney Disease: Estimated GFR < 60 mL/min/1.73m2 Severe Kidney Disease: Estimated GFR < 15 mL/min/1.73m2 Glucose Random 102 60-115 mg/dL Calcium 9.2 8.4-10.2 mg/dL Complete Blood Count Auto Di ff Reviewed date:04/28/2024 07:56:49 PM Interpretation: Performing Lab:[facility], [address] [place] [phone] Notes/Report: White Blood Count 12.5 4.8-10.8 X10*3/uL [...] Panel Reviewed date:04/28/2024 07:56:23 PM Interpretation: Performing Lab:[facility], [address] [place] [phone] Notes/Report: Sodium 143 135-145 mmol/L Potassium 4.7 [...] Glomerular Filt Rate > 60 NOTE: For -Bolivian individuals, multiply the result by 1.210. Chronic Kidney Disease: Estimated GFR < 60 mL/min/1.73m2 Severe Kidney Disease: Estimated GFR < 15 mL/min/1.73m2 Glucose Random 130 60-115 mg/dL Calcium 10.6 8.4-10.2 mg/dL Glucose, Whole Blood Reviewed date:04/28/2024 07:56:58 PM Interpretation: Performing Lab:[facility], [address] [place] [phone] Notes/Report: Glucose, Whole Blood 118 60-115 mg/dL METER # : [id number] XR chest 2V Reviewed date:04/29/2024 07:04:22 AM Interpretation: Performing Lab: Notes/Report: [address] [address] XRay Report Signed Patient: Javi Smith MR#: [id number] 8 : 1985 Acct:[id number] Age/Sex: 39 / M ADM Date: 04/28/24 Loc: .ED Attending Dr: Ordering Physician: Madhav Meade MD Date of Service: 04/28/24 Procedure(s): XR chest 2V Accession Number(s): [id number] cc: Alfonso Sierra MD; Madhav Meade MD [...] in OV> 04/28/24 1101 DD/ 1035 TD/TT: Concrete Tile Machine Operator: XR thoracic spine 2V Reviewed date:04/28/2024 08:00:24 PM Interpretation: Performing Lab: Notes/Report: [address] [address] XRay Report Signed Patient: Javi Smith MR#: [id number] 8 : 1985 Acct:[id number] Age/Sex: 39 / M ADM Date: 04/28/24 Loc: HO.ED Attending Dr: Ordering Physician: Madhav Meade MD Date of Service: 04/28/24 Procedure(s): XR thoracic spine 2V Accession Number(s): [id number] cc: Alfonso Sierra MD; Madhav Meade MD [...] in OV> 04/28/24 1129 DD/ 1035 TD/TT: Concrete Tile Machine Operator: DM XR lumbar spine 2-3V Reviewed date:04/28/2024 07:58:00 PM Interpretation: Performing Lab: Notes/Report: [address] [address] XRay Report Signed Patient: Javi Smith MR#: [id number] 8 : 1985 Acct:[id number] Age/Sex: 39 / M ADM Date: 04/28/24 Loc: .ED Attending Dr: Ordering Physician: Madhav Meade MD Date of Service: 04/28/24 Procedure(s): XR lumbar spine 2-3V Accession Number(s): [id number] cc: Alfonso Sierra MD; Madhav Meade MD [...] in OV> 04/28/24 1258 DD/ 1223 TD/TT: Concrete Tile Machine Operator: XR shoulder LT min 2V Reviewed date:04/28/2024 07:58:30 PM Interpretation: Performing Lab: Notes/Report: [address] [address] XRay Report Signed Patient: Javi Smith MR#: [id number] 8 : 1985 Acct:[id number] Age/Sex: 39 / M ADM Date: 04/28/24 Loc: HO.ED Attending Dr: Ordering Physician: Madhav Meade MD Date of Service: 04/28/24 Procedure(s): XR shoulder LT min 2V Accession Number(s): [id number] cc: Alfonso Sierra MD; Madhav Meade MD [...] in OV> 04/28/24 1123 DD/ 1035 TD/TT: Concrete Tile Machine Operator: JANICE Goncalves. Panel Reviewed date:05/01/2024 06:25:16 PM Interpretation: Performing Lab:[address] [address] Notes/Report: Sodium 142 135-145 mmol/L Potassium 3.7 3.3-5.1 mmol/L Chloride 103 96-108 mmol/L Carbon Dioxide 29 22-29 mmol/L Anion Gap 14 12-20 Blood Urea Nitrogen 13 9-16 mg/dL Creatinine 0.69 0.5-1.4 mg/dL Estimated Glomerular Filt Rate > 60 NOTE: For -Bolivian individuals, multiply the result by 1.210. Chronic [...] Ionized Reviewed date:05/03/2024 12:34:14 PM Interpretation: Performing Lab:[address] [address] Notes/Report: Calcium, Ionized 5.1 4.7-5.5 mg/dL THIS TEST WAS PERFORMED AT: [facility] [address] [address] RENETTA ARIAS MD Phosphorus Reviewed date:05/01/2024 06:23:06 PM Interpretation: Performing Lab:[facility], [address] [place] [phone] Notes/Report: Phosphorus 3.7 2.7-4.5 mg/dL Vitamin D 25-OH Total Reviewed date:05/01/2024 06:24:24 PM Interpretation: Performing Lab:[address] [address] Notes/Report: Vitamin D 25-OH Total 38.7 >30 [...] T4 Reviewed date:05/01/2024 06:22:28 PM Interpretation: Performing Lab:[facility], [address] [place] [phone] Notes/Report: TSH reflex Free T4 0.94 0.32-4.0 uIU/mL Parathyroid Hormone Intact Reviewed date:05/01/2024 06:24:55 PM Interpretation: Performing Lab:[facility], [address] [place] [phone] Notes/Report: Parathyroid Hormone Intact 26.3 8.7-77.1 pg/mL Calcium Reviewed date:05/04/2024 12:33:52 PM Interpretation: Performing Lab:[facility], [address] [place] [phone] Notes/Report: Calcium 10.3 8.4-10.2 mg/dL Albumin Level Reviewed date:05/04/2024 12:33:59 PM Interpretation: Performing Lab:[facility], [address] [place] [phone] Notes/Report: Albumin Level 4.3 3.5-5.0 g/dL Testosterone, Free/Total Reviewed date:05/10/2024 12:24:45 PM Interpretation: Performing Lab:[facility], [address] [place] [phone] Notes/Report: Testosterone, Total 860 232-4077 ng/dL For additional information, please refer to http://education.Mayday PAC/faq/ TotalTestosteroneMS AFOHV607 (This link is being provided for informational/ educational purposes only.) This test was developed and its analytical performance characteristics have been determined by [facility] [place], [place]. It has not been cleared or approved by the U.S. Food and Drug Administration. This assay has been validated pursuant to the CLIA regulations and is used for clinical purposes. Testosterone, Free 57.3 35.0-155.0 pg/mL This test was developed and its analytical performance characteristics have been determined by [facility] [place] [place]. It has not been cleared or approved by the U.S. Food and Drug Administration. This assay has been validated pursuant to the CLIA regulations and is used for clinical purposes. THIS TEST WAS PERFORMED AT: [facility] [facility] DYAN TUCKER MD,PHD Alkaline Phosphatase Bone Reviewed date:05/10/2024 12:24:07 PM Interpretation: Performing Lab:[facility], [address] [place] [phone] Notes/Report: Alkaline Phosphatase Bone 30.9 7.7-21.3 mcg/L THIS TEST WAS PERFORMED AT: [facility] [id number] [place] [address] DYAN TUCKER MD,PHD Collagen Crosslinks NTX Reviewed date:05/09/2024 02:16:17 PM Interpretation: Performing Lab:[facility], [address] [place] [phone] Notes/Report: N-Telopeptide 144 9-60 Result Units: nM BCE/mM creat Units of Measure: nM BCE/mM creat NTXCreaRU 206 20-320 mg/dL THIS TEST WAS PERFORMED AT: [facility]/[address] DYAN TUCKER MD,PHD Collagen Type I C-Telopeptid e Reviewed date:05/10/2024 12:23:51 PM Interpretation: Performing Lab:[facility], [address] [place] [phone] Notes/Report: Collagen Type I C-Telopeptide 958 70-780 pg/mL No reference range is provided for postmenopausal women because of the increased rate of bone turnover post-menopause. It is recommended that results for postmenopausal women be compared to the premenopausal reference range as this will give a better indication of their rate of bone loss. For additional information, please refer to https://CallYourPrice.Jinni/faq /HPJ545 (This link is being provided for informational/ educational purposes only.) THIS TEST WAS PERFORMED AT: [facility] [id number] [place] [address] DYAN TUCKER MD,PHD XR chest 2V Reviewed date:06/03/2024 08:57:08 AM Interpretation: Performing Lab: Notes/Report: [address] [address] XRay Report Signed Patient: Javi Smith MR#: [id number] 8 : 1985 Acct:[id number] Age/Sex: 39 / M ADM Date: 05/11/24 Loc: LEEANNA Attending Dr: Alfonso Sierra MD Ordering Physician: Alfonso Sierra MD Date of Service: 05/11/24 Procedure(s): XR chest 2V Accession Number(s): [id number] cc: Alfonso Sierra MD EXAMINATION: XR CHEST CLINICAL INFORMATION: Back pain since December per patient. Back surgery in February per patient. COMPARISON: 04/28/2024. TECHNIQUE: 2 views of the chest were obtained. FINDINGS: There is no gross pneumothorax. Lung volumes are low. Heart size is normal. Redemonstration bibasilar opacities, predominantly left base. Redemonstration of vertebroplasty changes in the qhy-zq-xmxrv thoracic spine. Small left pleural effusion. Degenerative changes in the thoracic spine. XR/XR chest 2V IMPRESSION: 1. Redemonstration of bibasilar opacities, predominantly left base, with some interval improvement. Small left pleural effusion. 2. Recommend follow-up to resolution. Dictated By: Gail Baca MD Signed By: <Electronically signed by Gail Baca MD in OV> 06/02/24 0707 DD/ 0912 TD/TT: Concrete Tile Machine Operator: XR chest 2V Reviewed date:07/14/2024 08:39:43 AM Interpretation: Performing Lab: Notes/Report: [place] [address] XRay Report Signed Patient: Javi Smith MR#: [id number] 8 : 1985 Acct:[id number] Age/Sex: 39 / M ADM Date: 06/15/24 Loc: HO.JAMAALAY Attending Dr: Alfonso Sierra MD Ordering Physician: Alfonso Sierra MD Date of Service: 06/15/24 Procedure(s): XR chest 2V Accession Number(s): [id number] cc: Alfonso Sierra MD EXAMINATION: XR chest [...] 07/13/24 1816 DD/ 0745 TD/TT: 06/15/24 0753 Concrete Tile Machine Operator: Complete Blood Count Auto Di ff Reviewed date:08/03/2024 12:14:32 PM Interpretation: Performing Lab:[facility], [address] [place] [phone] Notes/Report: White Blood Count 9.5 4.8-10.8 X10*3/uL [...] INR Reviewed date:08/03/2024 12:25:49 PM Interpretation: Performing Lab:[facility], [address] [place] [phone] Notes/Report: Prothrombin Time 12.7 10.9-12.4 SEC INTERNATIONAL [...] Panel Reviewed date:08/03/2024 12:26:08 PM Interpretation: Performing Lab:[facility], [address] [place] [phone] Notes/Report: Sodium 140 135-145 mmol/L Potassium 3.7 [...] Glomerular Filt Rate > 60 NOTE: For -Bolivian individuals, multiply the result by 1.210. Chronic [...] Lipase Reviewed date:08/03/2024 12:13:19 PM Interpretation: Performing Lab:[facility], [address] [place] [phone] Notes/Report: Lipase 38 8-78 U/L UA CC w/rflx Micro + Cult Reviewed date:08/05/2024 12:23:32 PM Interpretation: Performing Lab:[facility], [address] [place] [phone] Notes/Report: [id number] Urine, Clean Catch Color Urine Dark Yellow Appearance Urine Clear PH 6.0 5.0-9.0 Glucose Urine UA Negative Negative mg/dL Urine Blood Negative Negative Specific Neely - Urine 1.025 1.005-1.025 Urine Protein Negative Neg-Trace mg/dL Urine Ketones Negative Negative mg/dL Nitrite Urine Negative Negative Leukocyte Esterase Urine Negative Negative XR lumbar spine 2-3V Reviewed date:08/05/2024 12:23:16 PM Interpretation: Performing Lab: Notes/Report: [address] [address] XRay Report Signed Patient: Javi Smiht MR#: [id number] 8 : 1985 Acct:[id number] Age/Sex: 39 / M ADM Date: 08/03/24 Loc: .ED Attending Dr: Ordering Physician: Long Villagran Date of Service: 08/03/24 Procedure(s): XR lumbar spine 2-3V Accession Number(s): [id number] cc: Alfonso Sierra MD; Long Villagran EXAMINATION: [...] 08/03/24 1325 DD/ 1133 TD/TT: 08/03/24 1154 Concrete Tile Machine Operator: SARAH Complete Blood Count Auto Di ff Reviewed date:10/05/2024 12:46:36 PM Interpretation: Performing Lab:[facility], [address] [place] [phone] Notes/Report: White Blood Count 12.5 4.8-10.8 X10*3/uL [...] Panel Reviewed date:10/05/2024 12:43:21 PM Interpretation: Performing Lab:[facility], [address] [place] [phone] Notes/Report: Sodium 139 135-145 mmol/L Potassium 4.2 [...] REVIEW Reviewed date:10/05/2024 12:41:54 PM Interpretation: Performing Lab:[facility], [address] [place] [phone] Notes/Report: SLIDE REVIEW VERIFIED CT lumbar spine wo con Reviewed date:10/07/2024 03:28:04 PM Interpretation: Performing Lab: Notes/Report: [address] [address] [address] Scan Report Signed Patient: Javi Smith MR#: [id number] 8 : 1985 Acct:[id number] Age/Sex: 39 / M ADM Date: 10/05/24 Loc: .ED Attending Dr: Ordering Physician: Homer Larsen MD Date of Service: 10/05/24 Procedure(s): CT lumbar spine wo IV con Accession Number(s): [id number] cc: Alfonso Sierra MD; Homer Larsen MD [...] by: Will Cabral DO 10/05/2024 06:21 PM [facility] Dictated By: Dave Cabral DO Signed By: <Electronically signed by Dave Cabral DO in OV> 10/05/24 1821 DD/ 1549 TD/TT: 10/05/24 1653 Concrete Tile Machine Operator: GEOVANNA CT chest wo con Reviewed date:10/14/2024 12:09:34 PM Interpretation:appt 10-14-2024 Performing Lab: Notes/Report: [address] [address] [address] Scan Report Signed Patient: Javi Smith MR#: [id number] 8 : 1985 Acct:[id number] Age/Sex: 39 / M ADM Date: 10/05/24 Loc: HO.ED Attending Dr: Ordering Physician: Homer Larsen MD Date of Service: 10/05/24 Procedure(s): CT chest wo IV con Accession Number(s): [id number] cc: Alfonso Sierra MD; Homer Larsen MD [...] Jose Alfredo Garcia MD 10/05/2024 08:36 PM [facility] Dictated By: Jose Alfredo Garcia MD Signed By: <Electronically signed by Jose Alfredo Garcia MD in OV> 10/05/242035 DD/ 42 TD/TT: 10/05/241652 Concrete Tile Machine Operator: CT head/brain wo con Reviewed date:10/05/2024 01:00:35 PM Interpretation: Performing Lab: Notes/Report: [place] [address] [address] Scan Report Signed Patient: Javi Smith MR#: [id number] 8 : 1985 Acct:[id number] Age/Sex: 39 / M ADM Date: 10/05/24 Loc: HO.ED Attending Dr: Ordering Physician: Homer Larsen MD Date of Service: 10/05/24 Procedure(s): CT head/brain wo IV con Accession Number(s): [id number] cc: Alfonso Sierra MD; Homer Larsen MD [...] 10/05/24 1244 DD/ 1154 TD/TT: 10/05/24 1159 Concrete Tile Machine Operator: XR chest 2V Reviewed date:10/05/2024 04:45:14 PM Interpretation: Performing Lab: Notes/Report: [address] [address] XRay Report Signed Patient: Javi Smith MR#: [id number] 8 : 1985 Acct:[id number] Age/Sex: 39 / M ADM Date: 10/05/24 Loc: .ED Attending Dr: Ordering Physician: Homer Larsen MD Date of Service: 10/05/24 Procedure(s): XR chest 2V Accession Number(s): [id number] cc: Alfonso Sierra MD; Homer Larsen MD [...] 10/05/24 1429 DD/ 1320 TD/TT: 10/05/24 1330 Concrete Tile Machine Operator: XR lumbar spine 2-3V Reviewed date:10/05/2024 04:45:47 PM Interpretation: Performing Lab: Notes/Report: [address] [address] XRay Report Signed Patient: Javi Smith MR#: [id number] 8 : 1985 Acct:[id number] Age/Sex: 39 / M ADM Date: 10/05/24 Loc: .ED Attending Dr: Ordering Physician: Homer Larsen MD Date of Service: 10/05/24 Procedure(s): XR lumbar spine 2-3V Accession Number(s): [id number] cc: Alfonso Sierra MD; Homer Larsen MD [...] 10/05/24 1432 DD/ 1308 TD/TT: 10/05/24 1330 Concrete Tile Machine Operator: REASON FOR REFERRAL Reason compression fracture of [...] Ambrose the referral and ER report from [facility]. 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 Ulcerative proctocolitis (147635866) Problem Acute saddle pulmonary embolism without acute cor pulmonale (I26.92) Active confirmed [id number] Problem Clubbing of nail (R68.3) Active confirmed 4539603 Problem 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 808498473 Problem Compression fracture of thoracic vertebra with routine healing, unspecified thoracic vertebral level, subsequent encounter (S22.000D) Active confirmed 853694078 VITAL SIGNS Blood pressure diastolic 58 mm Hg 10/14/2024 Height 64 in 10/14/2024 Blood pressure systolic 82 mm Hg 10/14/2024 Weight 127 lbs 10/14/2024 BMI 21.80 kg/m2 10/14/2024 Encounters Encounter Location Date Provider Diagnosis Alfonso Sierra MD [address] [place] [id number] 03/11/2024 Alfonso Sierra Rising PSA level R97.20 ; Annual physical exam Z00.00 ; Compression fracture of thoracic vertebra with routine healing, unspecified thoracic vertebral level, subsequent encounter S22.000D and Depression screening Z13.31 Alfonso Sierra MD [address] [place] [id number] 03/04/2024 Alfonso Sierra Blood tests for routine general physical examination Z00.00 Alfonso Sierra MD [address] [place] [id number] 12/29/2023 Alfonso Sierra Elevated LFTs R79.89 and Compression fracture of thoracic vertebra with routine healing, unspecified thoracic vertebral level, subsequent encounter S22.000D Alfonso Sierra MD [address] [place] [id number] 01/05/2024 Alfonso Sierra Compression fracture of thoracic vertebra with routine healing, unspecified thoracic vertebral level, subsequent encounter S22.000D Alfonso Sierra MD [address] [place] [id number] 09/09/2024 Alfonso Sierra Seizure disorder G40.909 Alfonso Sierra MD [address] [place] [id number] 05/20/2024 Alfonso Sierra Compression fracture of thoracic vertebra with routine healing, unspecified thoracic vertebral level, subsequent encounter S22.000D ; Osteopetrosis Q78.2 ; Acute saddle pulmonary embolism without acute cor pulmonale I26.92 and Seizure disorder G40.909 Alfonso Sierra MD [address] [place] [id number] 06/24/2024 Alfonso Sierra Acute saddle pulmonary embolism without acute cor pulmonale I26.92 and Compression fracture of thoracic vertebra with routine healing, unspecified thoracic vertebral level, subsequent encounter S22.000D Alfonso Sierra MD [address] [place] [id number] 10/14/2024 Alfonso Sierra Seizure disorder G40.909 ; 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 and Other ascites R18.8 Alfonso Sierra MD [address] [place] [id number] 04/22/2024 Alfonso Sierra Other acute pulmonar y embolism without acute cor pulmonale I26.99 ; Increased ammonia level R79.89 ; Osteopetrosis Q78.2 and Compression fracture of thoracic vertebra with routine healing, unspecified thoracic vertebral level, subsequent encounter S22.000D Alfonso Sierra MD [address] [place] [id number] 05/04/2024 Alfonso Sierra History of pneumonia Z87.01 ; Seizure disorder G40.909 and Acute saddle pulmonary embolism without acute cor pulmonale I26.92 Alfonso Sierra MD [address] [place] [id number] 01/08/2024 Alfonso Sierra Compression fracture of thoracic vertebra with routine healing, unspecified thoracic vertebral level, subsequent encounter S22.000D Alfonso Sierra MD [address] [place] [address] [id number] 04/06/2024 Alfonso Sirera MD [address] [place] [id number] 04/29/2024 Alfonso Sierra Back pain M54.9 Alfonso Sierra MD [address] [place] [id number] 04/29/2024 Alfonso Sierra MD [address] [place] [address] [id number] 04/29/2024 Alfonso Sierra MD [address] [place] [id number] 05/17/2024 Alfonso Sierra Acute saddle pulmonary embolism without acute cor pulmonale I26.92 Alfonso Sierra MD [address] [place] [address] [id number] 06/03/2024 Alfonso Sierra Back pain M54.9 Alfonso Sierra MD [address] [place] [address] [id number] 08/17/2024 Alfonso Sierra MD [address] [place] [id number] 09/14/2024 Alfonso Sierra Acute saddle pulmonary embolism without acute cor pulmonale I26.92 Alfonso Sierra MD [address] [place] [id number] 10/07/2024 Alfonso Sierra MD [address] [place], [place] [id number] 10/11/2024 Alfonso Sierra MD [address] [place], [place] [id number] 10/15/2024 Alfonso Sierra 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 [...] (ICD-10 - R79.89) need blood results from [facility] 12/29/2023 Compression fracture of thoracic vertebra with [...] going to try to get endocrine at [facility] 09/09/2024 Seizure disorder (ICD-10 - G40.909) [...] G40.909) pending diagnostic testing/ [place] fax[place] [facility] [place] 05/04/2024 History of pneumonia (ICD-10 [...] Details Provider Name:Alfonso martinez, 11/16/2024 11:15:00 AM, [address] [place] [address], [address], [phone], Provider Name:Alfonso Avendano ier, 03/10/2025 07:45:00 AM, [address] [place] [address], [address], [phone], Provider Name:Alfonso Avendano ier, 03/17/2025 11:00:00 AM, [address] [place] [address], [address], [phone], Insurance Providers Payer Name Payer Address Payer Phone Subscriber Number Group Number Insured Name Patient Relationship to Insured Coverage Start Date Coverage End Date [facility] [address] [address] [place] [phone] [id number] Sarah Javi Self - patient is the insured [employer] [place] CLAIM OFFICE [address] [place], [place] [address] [id number] Javi Smith Self - patient is the insured MEDICAL (GENERAL) HISTORY Medical History History ICD Code 04/30/2019 - colonoscopy by Dr. Mendez : Clonoscopy 12/10/22 pending path lialda is asachol
== END 2024-10-26 08:41 | disposition home or self-care (01) ==
LOC: HO.US 08:40
PROVIDERS: PCP Internal Medicine; Visit Provider Internal Medicine
DX: K83.01 Primary sclerosing cholangitis (principal); R18.8 Other ascites
CPT/HCPCS: 76700

== ENCOUNTER 2024-11-30 09:49 | Outpatient (AMB) | payer OTHER, SELFPAY ==
--- NOTE | 2024-11-30 10:07 | A.OFFVIS_ITS ---
Vital Signs 11/30/24 10:13 Height 5 ft 2.13 in Weight 130 lb 8.218 oz BMI 23.8 BP 92/60 Blood Pressure Location Rt brachial Position Sitting Pulse 85 Pulse Source Pulse Oximeter Intake Visit Reasons: Osteoporosis Intake Note: Patient present today for Osteoporosis follow up. Precast Molder Required: No Accompanied by: Mother Allergies No Known Allergies Allergy (Verified 11/30/24 10:13) Medication List - Last Reconciled 11/30/24 by Marcial Tran MD apixaban (Eliquis) 5 mg PO BID Forteo (teriparatide) 20 mcg (0.08 mL) subcut DAILY NS levetiracetam (Keppra) 1,000 mg PO BID mesalamine (Lialda) 2.4 grams PO DAILY ursodiol 250 mg PO QID HPI Comments Details: 39 YO M is seen in consultation at the request of PCP for Osteoporosis. First diagnosed in vertebral fx in 12/2023 . Received treatment in the past with 1 dose , in March 2024 Tolerated treatment well without complication. history of pathologic fracture as above or ONJ. Has several servings of dietary calcium per day in the form of cheese, milk . Not Takes Calcium supplement . Not Takess of Vitamin D daily. Denies ever using PPI, + anticoagulant/has PE , antiepileptic /gabapentin but no glucocorticoid medication. Does weight bearing exercise 2 days per week in the form of physical therapy . Fracture history: As above Height loss: No Denies history of Kidney stones: Denies family history of Osteoporosis or hip fracture. UTD on dental cleanings and sees dentist every 6 months. No planned upcoming dental work or extractions. DXA dated : Performed at [facility] showed a T-score of -5.0 in the lumbar spine Labs: No loss of libido On Forteo 20 mcg q.d. since June 2024. No fractures since last visit. Beto erating Forteo. MRI showed vertebral fracture was healing [facility] Medical History Compression fx, lumbar spine Compression fracture of thoracic spine, non-traumatic Thoracic back pain Collapsed vertebra, not elsewhere classified, site unspecified, initial encounter for fracture Lumbar compression fracture Thoracic compression fracture Abdominal distension Bacteremia Ulcerative colitis Primary sclerosing cholangitis Surgical History History of hand surgery H/O right inguinal hernia repair H/O colonoscopy Family History (Updated 11/30/24 @ 10:14 by SHAYNA Hidalgo) Mother Breast cancer Lung cancer Osteoporosis Psoriatic arthritis Father No problems noted. Social History Household Members: Family Household Members Other:: Parents. Housing: House Do you presently have visiting nurse or other home services: No Patient Tobacco Use Status: Never used Tobacco Advance Directives Date on File: 04/07/24 service: No Assessment & Plan Assessment & Plan (1) Osteoporotic compression fracture of vertebra: Code(s): M80.88XA - Other osteoporosis with current pathological fracture, vertebra(e), initial encounter for fracture Category: Medical Plan: This is a 39-year-old white male with a history of multiple vertebral compression fractures severe osteoporosis with secondary workup essentially negative. He is being treated with Forteo for the past 5 months Plan is to continue the Forteo for full 2 years. We will then transition the patient to anti resorptive therapy Coding Level of Care Code Est Pt Level 3 (87706) Diagnoses Osteoporotic compression fracture of vertebra M80.88XA
[2024-11-30 10:13] VITALS: BP 92/60; PULSE 85; BMI 23.8
--- OUTSIDE RECORDS SUMMARY | 2024-11-30 10:25 | XMS_ITS ---
Author Organization [facility] Address [address] [place] [address] Care Team Providers Care Compatibility Test Engineer Name Role Phone Alfonso Sierra MD Primary Care Provider Krystyna Eagle Jr, Lacho Dixon [phone] REASON FOR VISIT elevated ammonia level Encounters Encounter Location Date Provider Diagnosis [facility] [address] [facility] [place] [address] 04/29/2024 Lacho Eagle Jr PLAN OF TREATMENT Next Appt Details Provider Name:Lacho funes Jr, 03/23/2025 09:40:00 AM, [address], [address], [place], [address],
--- OUTSIDE RECORDS SUMMARY | 2024-11-30 10:25 | XMS_ITS ---
Author Organization Alfonso Sierra MD Address [address] [place] [phone] Care Team Providers Care Music Supervisor Name Role Phone Alfonso Sierra Primary Care Provider [phone] Allergies No Known Allergies Reason For Referral Reason acute saddle pulmona ry embolism without acute cor pulmonale Diagnosis 1 Acute saddle pulmona ry embolism without acute cor pulmonale (I26.92) Referral Organization Alfonso Sierra MD Referring Provider First Name Alfonso Referring Provider Last Name Rigo Referring Provider Speciality Internal M edicine Referred Provider BENJAMIN CASTRO Referred Provider Specialty Hematology/O ncology General Notes Oumou Hale 0 11/16/2024 08:43:08 AM > info faxed Referral Priority Routine REASON FOR VISIT 4 week Medications Medication [...] Location Date Provider Diagnosis Alfonso Sierra MD [address] [place] [address] Drive [address] [place] [phone] 11/16/2024 Alfonso Sierra Acute saddle pulmonary embolism [...] ddle pulmonary embolism without acute cor pulmonale , BENJAMIN CASTRO Next Appt Details Follow Up: 4 Weeks, Reason: Provider Name:Alfonso martinez, 12/14/2024 08:45:00 AM, [address] [place] [address], [address] [place] [address], [phone], Provider Name:Alfonso martinez, 03/10/2025 07:45:00 AM, [address] [place] [address], Suite [facility], [place], [place], [phone], Provider Name:Alfonso martinez, 03/17/2025 11:00:00 AM, [address] [place] [address], [address], [phone], Progress Notes * Javi SMITH DDOB:1985 (39 yo M)Acc No.[id number]:11/16/2024 Progress Notes Patient:?Javi Smith Provider:?Alfonso Sierra MD :1985???Age:39 Y???Sex:Male Americo e:11/16/2024 Address:[address] [place] [address] TRISH [phone] Subjective: * Chief Complaints: * ???4 week * HPI: ???Symptom(s):? patient is a 39 yo male here for 4 week follow up visit, waiting for next surgery. hurts sometimes. can't run until osteoporosis is in check. * ROS:?General/Constitutional:?Denies?Chills.?Denies?Fatigue.?Denies?Fever.?Denies?Headache.?ENT:?Patient denies?decreased sense of smell , any loss of taste , sore throat.?Denies?Sore throat.?Gastrointestinal:?Denies?Diarrhea.?Denies?Nausea.?Musculoskeletal:?Patient denies?muscle aches.?Peripheral Vascular:?Patient denies?red and blue toes.? * Medical History:? * Surgical History:? * Hospitalization/Major Diagno stic Procedure:? * Medications:?TakingKeppra 10 00 MG Tablet 1 tablet Orally every 12 [...] reviewed and reconciled with the patient * Allergies:?N.K.D.A.yes[Aller gies Verified] Objective: * Vitals:?Ht: 64, Wt:132, BMI: 22.66, BP:92/56 weight is up 5 pounds since 10-14-24. * Examination: ???General Examination: ?GENERAL APPEARANCE:?alert, well hydrated, in no distress.?HEAD:?normocephalic.?HEART:?no murmurs, rubs, gallops , regular rate and rhythm.?LUNGS:?no wheezes, rales, rhonchi , good air movement , clear to auscultation bilaterally.? Assessment: * Assessment: 1.?Acute saddle pulmonary em bolism without acute cor pulmonale - I26.92? Plan: * Treatment: * Procedure Codes:? * Follow Up:?4 Weeks * * Sign off status: Completed true * Provider:?Alfonso Sierra MD Date:?0 11/16/2024 Generated for Kee rogel/Azeem/eTransmitting on:?11/30/2024 10:25 AM EST History and Physical Notes * HPI (History [...] Referred Provider Not es 11/16/2024 Alfonso Sierra RENUKA acute sad dle pulmonary embolism without acute cor pulmonale
--- OUTSIDE RECORDS SUMMARY | 2024-11-30 10:26 | XMS_ITS | Clinical Summary ---
Author Organization [facility] Address [address] [place] [address] Care Team Providers Care Piece Goods Packer Name Role Phone Unavailable Primary Care Provider Unavailabl e Encounters Date Type Department Care Team Description 09/28/2024 [facility] Neurodiagnostic [address] [place] [phone] Julien Galo MD Epilepsy, unspecified, not intractable, without status epilepticus (CMS/HCC) 09/27/2024 [facility] Neurodiagnostic [address] [place] [phone] Julien Galo MD Epilepsy, unspecified, not intractable, without status epilepticus (CMS/HCC) 09/24/2024 [facility] Neurodiagnostic [address] [place] [phone] Julien Galo MD Epilepsy, unspecified, not intractable, without status epilepticus (CMS/HCC) from Last 3 Months Social History Tobacco Use Types Packs/Day Years Used Date Smoking Tobacco: Never Assessed Sex and Gender Information Value Date Recorded Sex Assigned at Not on file Gender Identity Not on file Sexual Orientation Not on file Plan of Treatment Upcoming Encounters Date Type Department Care Team (Late st Contact Info) Description 01/04/2025 10:00 AM EST Appointment [facility] Neurodiagnostic [address] [place] [phone] 01/05/2025 11:00 AM EST Appointment [facility] Neurodiagnostic [address] [place] [address] 01/06/2025 11:00 AM EST Appointment [facility] Neurodiagnostic [address] [place] [phone] Health Maintenance Due Date Last Done Comments DTaP,Tdap,and Td Vaccines (1 - Tdap) 2006 Hepatitis B Vaccines (1 of 3 - 19+ 3-dose series) 2006 COVID-19 Vaccine ( - 2023-2 5 season) 2024 Influenza Vaccine (#1) 2024 Cholesterol Screening (Lipid Panel) 10/11/2024 Depression Screening 10/11/2024 HIV Screening 10/11/2024 Hepatitis C Screening 10/11/2024 Social Influencers of Health Screening 10/11/2024 HIB Vaccines Aged Out No longer eligi ble based on patient's age to complete this topic HPV Vaccines Aged Out No longer eligi ble based on patient's age to complete this topic Hepatitis A Vaccines Aged Out No long er eligible based on patient's age to complete this topic IPV Vaccines Aged Out No longer eligi ble based on patient's age to complete this topic MMR Vaccines Aged Out No longer eligi ble based on patient's age to complete this topic Meningococcal ACWY Vaccine Aged Out N o longer eligible based on patient's age to complete this topic Pneumococcal Vaccine: Pediat rics (0 to 5 Years) and At-Risk Patients (6 to 64 Years) Aged Out No longer eligible b ased on patient's age to complete this topic RSV Immunization Patients Un alexsandra 20 months Aged Out No longer eligible b ased on patient's age to complete this topic Varicella Vaccines Aged Out No longer eligible based on patient's age to complete this topic
--- OUTSIDE RECORDS SUMMARY | 2024-11-30 10:26 | XMS_ITS | Patient Health Record ---
Author Organization [facility] Address [address] [place] [address] Care Team Providers Care Psychology Technician Name Role Phone Alfonso Sierra MD Primary Care Provider Lacho Zhou Jr Unavailable ALLERGIES No Known Allergies RESULTS Component Value Reference Range Notes Liver Fibrosis Pnl Reviewed date:05/21/2024 07:37:30 AM Interpretation: Performing Lab:[facility], [address] [place] [phone] Notes/Report: Liver Fibrosis Score 0.42 Liver Fibrosis [...] a>0.62 and a<=1.00 : A3 (severe activity) NCA-Upvkr-9-Macroglobulin 171 106-279 mg/dL FIB-Haptoglobin 136 43-212 mg/dL FIB-Apolipoprotein A1 110 94-176 mg/dL FIB-Total Bilirubin 1.0 0.2-1.2 mg/dL FIB-GGT 130 3-90 U/L FIB-ALT 107 9-46 U/L Reference ID [id number] Footnote SEE NOTE The reliability of results is dependent on compliance with the preanalytical and analytical conditions recommended by [employer] [place]. The tests have to be deferred for: [...] The performance characteristics have been determined by [facility]. It has not been cleared or approved by the U.S. Food and Drug Administration. Performance characteristics refer to the analytical performance of the test. [employer] the associated logo, [employer] and all associated [employer] carson are the registered trademarks of [employer] All third constitution party carson - (R) and (TM) - are the property of their respective owners. (C) 5633-2959 [employer] Incorporated. All rights reserved. THIS TEST WAS PERFORMED AT: [employer] [facility] [address] [place] [address] RUBINA OWENS MD,PHD,LATANYA Liver Panel Reviewed date:05/13/2024 11:22:38 AM Interpretation: Performing Lab:[facility], [address] [place] [phone] Notes/Report: Bilirubin Total 1.1 0.0-1.0 mg/dL Bilirubin Direct 0.4 0.0-0.5 mg/dL Aspartate Amino Transferase 70 5-37 U/L Alanine Aminotransferase 126 0-40 U/L Total Protein 7.7 6.5-8.0 g/dL Albumin Level 4.3 3.5-5.0 g/dL Alkaline Phosphatase 366 39-117 U/L Ammonia Reviewed date:05/13/2024 11:22:59 AM Interpretation: Performing Lab:[facility], [address] [place] [phone] Notes/Report: Ammonia < 14 13-55 umol/L REASON [...] Gabapentin 100 MG TAKE 1 CAPSULE BY [facility] 3 TIMES A DAY Oral for 30 [...] Ulcerative pancolitis without complication (K51.00) Active confirmed [id number] Problem Ulcerative pancolitis (K51.00) Active confirmed Ulcerative pancolitis (488488011) Problem Ulcerative colitis, unspecified (K51.90) Active confirmed Ulcerative colitis (35943644) Problem 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 [id number] Problem Sclerosing cholangitis (K83.09) Active confirmed [id number] VITAL SIGNS Temperature 98.0 degrees Fahrenheit 05/10/2024 Blood pressure diastolic 00 mm Hg 05/10/2024 Height 65.50 in 05/10/2024 Blood pressure systolic 000 mm Hg 05/10/2024 Weight 125 lb 6 oz lbs 05/10/2024 BMI 20.54 kg/m2 05/10/2024 Encounters Encounter Location Date Provider Diagnosis [facility] [address] [place] [phone] 03/22/2024 Lacho Eagle Jr Ulcerative pancolitis K51.00 and Sclerosing cholangitis K83.09 [facility] [address] [place] [phone] 04/29/2024 Lacho Eagle Jr [facility] [address] [place] [phone] 05/10/2024 Lacho Eagle Jr Sclerosing cholangitis K83.09 and Ulcerative pancolitis without complication K51.00 [facility] [address] [place] [phone] 03/30/2024 Lacho Eagle Jr Primary sclerosing cholangitis 576.1 and Unspecified ulcerative colitis 556.9 [facility] [address] [place] [phone] 04/28/2024 Lacho Eagle Jr [facility] [address] [place] [phone] 05/21/2024 Lacho Eagle Jr ASSESSMENTS Encounter Date [...] Provider Name:Lacho funes Jr, 03/23/2025 09:40:00 AM, [address] [place] [address], [address], [place], [address], Insurance Providers Payer Name Payer Address Payer Phone Subscriber Number Group Number Insured Name Patient Relationship to Insured Coverage Start Date Coverage End Date [facility] [employer] [facility] [address] [address] [place], [place] [id number] GEORGE PATINO Self - patient is the insured [facility] [address] [place], [place] [id number] GEORGE PATINO Self - patient is the insured MEDICAL (GENERAL) HISTORY Medical History History ICD Code primary sclerosing cholangitis ulcerative colitis, diagnosi s 08/11, current treatment Lialda, colonoscopy 12/26, no active colitis on biopsies, three-year followup spinal fractures surgery february 04, 2023 Pulmonary embolus Surgical History Surgery Date(Month/Year) Right inguinal herniorrhaphy 04/2017 spinal fracures 02/2023
--- OUTSIDE RECORDS SUMMARY | 2024-11-30 10:26 | XMS_ITS ---
Author Organization [facility] Address [address] [place] [address] Care Team Providers Care Director Of Solutions Architecture Name Role Phone Rigo CHUNG, Alfonso Primary Care Provider Lacho Zhou Jr Unavailable [phone] ALLERGIES No Known Allergies RESULTS Component Value Reference Range Notes Liver Fibrosis Pnl Reviewed date:05/21/2024 07:37:30 AM Interpretation: Performing Lab:[facility] [place], [address] [place] [phone] Notes/Report: Liver Fibrosis Score 0.42 Liver Fibrosis [...] a>0.62 and a<=1.00 : A3 (severe activity) SQN-Mbgvo-9-Macroglobulin 171 106-279 mg/dL FIB-Haptoglobin 136 43-212 mg/dL FIB-Apolipoprotein A1 110 94-176 mg/dL FIB-Total Bilirubin 1.0 0.2-1.2 mg/dL FIB-GGT 130 3-90 U/L FIB-ALT 107 9-46 U/L Reference ID [id number] Footnote SEE NOTE The reliability of results is dependent on compliance with the preanalytical and analytical conditions recommended by [employer]. The tests have to be deferred for: [...] The performance characteristics have been determined by [employer] [place]. It has not been cleared or approved by the U.S. Food and Drug Administration. Performance characteristics refer to the analytical performance of the test. [employer], the associated logo, [employer] and all associated [employer] carson are the registered trademarks of [employer]. All third libertarian carson - (R) and (TM) - are the property of their respective owners. (C) 2925-2739 [employer]. All rights reserved. THIS TEST WAS PERFORMED AT: [employer] [facility] [address] [place] [address] RUBINA OWENS MD,PHD,LATANYA REASON FOR VISIT Patient [...] Gabapentin 100 MG TAKE 1 CAPSULE BY [facility] 3 TIMES A DAY Oral for 30 Active VITAL SIGNS BMI 20.54 kg/m2 05/10/2024 Blood pressure systolic 000 mm Hg 05/10/20 24 Blood pressure diastolic 00 mm Hg 024 Height 65.50 in 05/10/2024 Temperature 98.0 degrees Fahrenheit 05/10/20 24 Weight 125 lb 6 oz lbs 05/10/2024 Encounters Encounter Location Date Provider Diagnosis [facility] [address] [place] [address] 05/10/2024 Lacho Eagle Jr Sclerosing cholangitis K83.09 [...] 09:40:00 AM, [address], [address], [place], [address],
--- OUTSIDE RECORDS SUMMARY | 2024-11-30 10:26 | XMS_ITS ---
Author Organization [facility] Address [address] [place] [address] Care Team Providers Care Restaurant Recruiter Name Role Phone Alfonso Sierra MD Primary Care Provider Krystyna Eagle Jr, Lacho Dixon [phone] REASON FOR VISIT labs Encounters Encounter Location Date Provider Diagnosis [facility] [address] [facility] [place] [address] 05/21/2024 Lacho Eagle Jr PLAN OF TREATMENT Next Appt Details Provider Name:Lacho funes Jr, 03/23/2025 09:40:00 AM, [address] [facility] [address], [address], [place], [address],
--- OUTSIDE RECORDS SUMMARY | 2024-11-30 10:26 | XMS_ITS ---
Author Organization Alfonso Sierra MD Address [address] [place] [phone] Care Team Providers Care Supervisor Mapping Name Role Phone Alfonso Sierra Primary Care Provider REASON FOR VISIT Abd US orders Encounters Encounter Location Date Provider Diagnosis Alfonso Sierra MD [address] [facility] [address] [place] [phone] 10/15/2024 Alfonso Sierra 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 and Other ascites R18.8 Assessments Encounter Date Diagnosis (ICD Code) Assessment Notes Treatment Notes Treatment Clinical Notes Section Notes 10/15/2024 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) 10/15/2024 Other ascites (ICD-10 - R18.8) Plan Of Treatment Pending Test Test Name Order Date US abdomen complete 10/15/2024 Next Appt Details Provider Name:Alfonso martinez, 12/14/2024 08:45:00 AM, [address] [facility], Suite [facility], [place], [place], [phone], Provider Name:Alfonso martinez, 03/10/2025 07:45:00 AM, [address], [address], [place], [place], [phone], Provider Name:Alfonso Avendano ier, 03/17/2025 11:00:00 AM, [address], [address], [place], [phone], Progress Notes * Javi SMITH DDOB:1985 (39 yo M)Acc No.[id number]:10/15/2024 Patient:?Javi Smith :1985???Age:39 Y???Sex:Male Address:[address] [place] [phone] Subjective: * Chief Complaints: * ???Abd US orders * Medical History:? * Surgical History:? * Hospitalization/Major Diagno stic Procedure:? * Medications:? Objective: Assessment: * Assessment: 1.?Primary sclerosing cholan gitis - K83.01?2.?Other ascites - R18.8? Plan: * Treatment: 2.?Other ascites?Imaging: US abdomen complete* [facility] [place] [place] * Procedure Codes:? * true * Date:? Generated for Kee rogel/Azeem/eTransmitting on:?11/30/2024 10:25 AM EST
--- OUTSIDE RECORDS SUMMARY | 2024-11-30 10:26 | XMS_ITS ---
Author Organization Alfonso Sierra MD Address [address] [place] [phone] Care Team Providers Care Steam Shovel Oiler Name Role Phone Alfonso Sierra Primary Care Provider [phone] Allergies No Known Allergies REASON FOR [...] Status W/U Status Risk Notes Problem Ascites (810635836) Other ascites (R18.8) Active confirmed Vital Signs Blood pressure systolic 82 mm Hg 10/14/20 24 Blood pressure diastolic 58 mm Hg 024 Height 64 in 10/14/2024 Weight 127 lbs 10/14/2024 BMI 21.80 kg/m2 10/14/2024 Encounters Encounter Location Date Provider Diagnosis Alfonso Sierra MD [address] [place] [phone] 10/14/2024 Alfonso Sierra Seizure disorder G40.909 ; [...] Reason: Provider Name:Alfonso martinez, 12/14/2024 08:45:00 AM, [address] [place] [address], [address], [phone], Provider Name:Alfonso martinez, 03/10/2025 07:45:00 AM, [address] [place] [address], [address], [phone], Provider Name:Alfonso martinez, 03/17/2025 11:00:00 AM, [address] [place] [address], [phone], Progress Notes * Javi SMITH DDOB:1985 (39 yo M)Acc No.[id number]:10/14/2024 Progress Notes Patient:?Javi Smith Provider:?Alfonso Sierra MD :1985???Age:39 Y???Sex:Male Americo e:10/14/2024 Address:[address] [place] [address] [place], [phone] Subjective: * Chief Complaints: * ???F/U ERV seizure new med Mayito moore over ct chest with patient, explain about ABD us, not booked yet * HPI: ???Symptom(s):? patient is a 39 yo male here for follow up recent ER visit for seizure. * ROS:?General/Constitutional:?Denies?Chills.?Denies?Fatigue.?Denies?Fever.?Denies?Headache.?ENT:?Patient denies?decreased sense of smell , any loss of taste , sore throat.?Denies?Sore throat.?Respiratory:?Denies?Cough.?Denies?Shortness of breath at rest.?Denies?Shortness of breath with exertion.?Gastrointestinal:?Denies?Diarrhea.?Denies?Nausea.?Musculoskeletal:?Patient denies?muscle aches.?Peripheral Vascular:?Patient denies?red and blue toes.? [...] Allergies:?N.K.D.A.yes[Aller gies Verified] Objective: * Vitals:?Ht: 64, Wt:127, BMI: 21.80, BP:82/58. * Examination: ???General Examination: ?GENERAL APPEARANCE:?well developed, well nourished.?SKIN:?good turgor.?HEART:?no murmurs, rubs, gallops , regular rate and rhythm.?LUNGS:?no wheezes, rales, rhonchi , good air movement , clear to auscultation bilaterally.? Assessment: * Assessment: 1.?Seizure disorder - G40.90 9?2.?Primary sclerosing cholangitis - K83.01?3.?Other ascites - R18.8? Plan: * Treatment: 2.?Primary sclerosing cholan gitis?Imaging: US ABD Notes: will goe us of abdomen to see if there is ascites, pending diagnostic testing?? * Procedure Codes:? * Follow Up:?4 Weeks * * Sign off status: Completed true * Provider:?Alfonso Sierra MD Date:?1 12/15/2023 Generated for Kee rogel/Azeem/eTransmitting on:?11/30/2024 10:25 AM [...]
== END 2024-11-30 10:23 | disposition home or self-care (01) ==
PROVIDERS: PCP Internal Medicine; Visit Provider Internal Medicine Endocrinology, Diabetes & Metabolism
DX: M80.88XA Other osteoporosis with current pathological fracture, vertebra(e), initial encounter for fracture (principal)
CPT/HCPCS: 99213

== ENCOUNTER → 2024-11-30 09:49 | Outpatient (BNVA) | payer OTHER, SELFPAY | PROVIDERS: PCP Internal Medicine; Visit Provider Internal Medicine Endocrinology, Diabetes & Metabolism | DX: M80.88XA Other osteoporosis with current pathological fracture, vertebra(e), initial encounter for fracture (principal); X58.XXXA Exposure to other specified factors, initial encounter; Y93.9 Activity, unspecified; Y92.9 Unspecified place or not applicable; Y99.9 Unspecified external cause status | CPT/HCPCS: 99212 ==

== ENCOUNTER 2025-01-17 12:50 | Outpatient (AMB) | payer OTHER, SELFPAY ==
[2025-01-17 12:55] VITALS: BP 118/80; PULSE 75; RESP 16; O2SAT 98; BMI 22.0
--- NOTE | 2025-01-17 12:55 | MHC.OFFVIS ---
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 He has previously experienced a seizure in October, which prompted an MRI to evaluate an L2 vertebral fracture. This ongoing condition previously required him to undergo a bone density scan, with another ordered for April. His work activities continue to be restricted due to pain, limiting lifting to five pounds. He has also been wearing a back brace for support. The patient is currently treated with Keppra following the seizure occurrence, and he recently completed a 48-hour EEG test. He experiences no ongoing issues requiring surgical intervention for the vertebral fracture. His medical history includes Crohn's disease and liver cirrhosis, with subsequent tests and evaluations relating to these conditions. Pain Description - Onset and Timing: Chronic, related to an L2 vertebral fracture; recent follow-up after seizure in October. - Quality and Character: The pain is variable, feeling better at times but aggravated by lifting or physical tasks. - Primary Location: Low back. - Exacerbating Factors: Heavy lifting and activities exceeding current work limitations. - Relieving Factors: Wearing a back brace and avoiding heavy lifting. - Interference: Interferes with ability to perform regular work tasks; currently restricted to lifting no more than five pounds. - Current Management: Avoidance of aggravating activities; wearing a back brace primarily at work. Physical Exam Results - MRI: Evaluated L2 fracture healing, noted improvements. - Anticipated bone density scan in April. - EE-hour test completed for evaluating seizure. Pain Management - Affect: The patient appears compliant with management plans; no specific mood detriments noted from conversation. - Analgesia: Currently utilizing a back brace and restricted physical activity for managing low back pain. He is on Keppra for seizure prophylaxis. - Adverse Effects: No adverse medication effects were explicitly discussed. - Activities of Daily Living: Pain and prior vertebral fracture limit lifting capabilities to five pounds. - Aberrant Drug Related Behaviors: None reported or discussed. REPLACED BY [facility] Medical History Compression fx, lumbar spine Compression fracture of thoracic spine, non-traumatic Thoracic back pain Collapsed vertebra, not elsewhere classified, site unspecified, initial encounter for fracture Lumbar compression fracture Thoracic compression fracture Abdominal distension Bacteremia Ulcerative colitis Primary sclerosing cholangitis Surgical History History of hand surgery H/O right inguinal hernia repair H/O colonoscopy Family History Mother Breast cancer Lung cancer Osteoporosis Psoriatic arthritis Father No problems noted. Social History Household Members: Family Household Members Other:: Parents. Housing: House Do you presently have visiting nurse or other home services: No Patient Tobacco Use Status: Never used Tobacco Advance Directives Date on File: 04/07/24 Current occupational status: employed Gender identity: Male Physical Exam Vital Signs: Last Vital Signs Pulse 75 01/17/25 12:55 Resp 16 01/17/25 12:55 BP 118/80 01/17/25 12:55 Pulse Ox 98 01/17/25 12:55 Oxygen Delivery Method Room Air 01/17/25 12:55 BMI result Body Mass Index 22.0 Assessment & Plan Assessment & Plan (1) Osteoporotic compression fracture of vertebra: Code(s): M80.88XA - Other osteoporosis with current pathological fracture, vertebra(e), initial encounter for fracture Category: Medical (2) Osteoporosis: Code(s): M81.0 - Age-related osteoporosis without current pathological fracture Category: Medical Plan Plan The plan for the patient's low back pain, associated with an L2 vertebral fracture, includes maintaining activity restrictions and regular use of a back brace, reflecting progress in healing as per recent MRI findings. Awaiting further diagnostics such as the bone density scan scheduled for April will help refine the management strategy. The patient should continue taking Keppra for seizure control. EEG assessments will guide any further insights into the seizure risk. Current management of Crohn?s and liver cirrhosis per GI. Patient was informed and verbally consented to the use of an ambient scribe for clinic note documentation during this visit. Discussion Notes I discussed with the patient the current status of his low back pain and the positively progressing healing of his L2 vertebral fracture, with no surgery anticipated. We reviewed the continuation of Keppra to manage seizure risk, following the episode in October, and his recent 48-hour EEG test. An upcoming bone density scan is ordered for April to assess bone health further, and an exercise discussion with Dr. Tran will provide additional guidance. The patient is encouraged to manage activity levels to avoid exacerbation of pain. Patient Instructions - Continue to use the back brace as needed, especially during work. - Adhere to the restriction of lifting no heavier than five pounds. - Ensure to follow up with your primary care for the bone density scan in April. - Continue taking Keppra for seizure management. - Discuss any pain or lifting issues with Dr. Tran. - Report any adverse effects or new symptoms immediately. Coding Level of Care Code Est Pt Level 4 (40878) Diagnoses Osteoporotic compression fracture of vertebra M80.88XA Osteoporosis M81.0
== END 2025-01-17 13:11 | disposition home or self-care (01) ==
LOC: HO.PMC 12:50
PROVIDERS: PCP Internal Medicine; Visit Provider Internal Medicine
DX: M80.88XA Other osteoporosis with current pathological fracture, vertebra(e), initial encounter for fracture (principal)
CPT/HCPCS: 99214

== ENCOUNTER → 2025-01-17 12:50 | Outpatient (BNVA) | payer OTHER, SELFPAY | PROVIDERS: PCP Internal Medicine; Visit Provider Internal Medicine | DX: M80.88XA Other osteoporosis with current pathological fracture, vertebra(e), initial encounter for fracture (principal); M81.0 Age-related osteoporosis without current pathological fracture | CPT/HCPCS: 99212 ==

== ENCOUNTER 2025-03-10 09:46 | Outpatient (REF) | payer OTHER, SELFPAY ==
[2025-03-10 09:50] LABS: MANUAL DIFF FLAG NO
[2025-03-10 10:06] LABS: Basophils Absolute Auto 0.1 X10*3/uL (0.0-0.2); Basophils Percent Auto 1.5 % (0-2); Eosinophils Absolute Auto 0.3 X10*3/uL (0.0-0.4); Hematocrit 46.3 % (42.0-52.0); Hemoglobin 15.7 g/dl (14.0-18.0); Imm Gran Abs Auto 0.01 X10*3/uL (0.00-0.03); Imm Gran Pct Auto 0.2 % (0.0-0.4); Lymphocytes Absolute Auto 1.3 X10*3/uL (1.2-4.9); Lymphocytes Percent Auto 24.5 % (20-40); Mean Corpuscular HGB Conc 33.9 g/dl (31.0-36.0); Mean Corpuscular Hemoglobin 31.2 pg (27.0-33.0); Mean Platelet Volume 11.1 fL (9.4-12.4); Monocytes Absolute Auto 0.7 X10*3/uL (0.1-1.2); Monocytes Percent Auto 13.4 % (2-11); Neutrophils Absolute Auto 2.9 x10*3/uL (2.0-8.3); Neutrophils Percent Auto 54.4 % (45-73); Platelet Count 255 X10*3/uL (160-400); Red Blood Count 5.03 X10*6/uL (4.60-5.80); White Blood Count 5.3 X10*3/uL (4.8-10.8)
[2025-03-10 10:07] LABS: Appearance Urine Clear; Color Urine Dark Yellow; Glucose Urine UA Negative (Negative); Leukocyte Esterase Urine Trace (Negative); Nitrite Urine Negative (Negative); PH 5.5 (5.0-9.0); Specific Gravity - Urine >= 1.030 (1.005-1.025); UMIC TRIGGER UACC YES; Urine Blood Negative (Negative); Urine Ketones Trace mg/dL (Negative); Urine Protein Negative (Neg-Trace)
[2025-03-10 10:10] LABS: Bacteria Urine None Seen (None Seen); Hyaline Casts Urine 0-2 /LPF (0-2); RBC Urine 0-2 /HPF (0-2); Squamous Epithelial Cell Urine 0-2 /HPF (0-2); WBC Urine 0-5 /HPF (0-5)
[2025-03-10 10:18] LABS: Alanine Aminotransferase 231 U/L (0-40); Albumin Level 4.5 g/dL (3.5-5.0); Alkaline Phosphatase 294 U/L (39-117); Anion Gap 14 (12-20); Aspartate Amino Transferase 168 U/L (5-37); Blood Urea Nitrogen 16 mg/dL (9-16); Calcium 9.9 mg/dL (8.4-10.2); Carbon Dioxide 28 mmol/L (22-29); Chloride 101 mmol/L (96-108); Cholesterol 158 mg/dL (<200); Estimated Glomerular Filt Rate > 60; Glucose Fasting 87 mg/dL (60-99); HDL Cholesterol 34 mg/dL (>40); LDL Cholesterol Calculated 107 mg/dL (<100); Potassium 4.5 mmol/L (3.3-5.1); Sodium 138 mmol/L (135-145); Total Protein 8.2 g/dL (6.5-8.0); Triglycerides 86 mg/dL (<150)
--- OUTSIDE RECORDS SUMMARY | 2025-03-10 10:33 | XMS_ITS ---
Author Organization Alfonso Sierra MD Address [address] [place] [phone] Care Team Providers Care Aircraft Technician Name Role Phone Alfonso Sierra Primary Care [...] Date Provider Diagnosis Alfonso Sierra MD [address] [place], [place] [phone] 11/16/2024 Alfonso Sierra Acute saddle pulmonary embolism [...] 4 Weeks, Reason: Provider Name:Alfonso Avendano ier, 03/17/2025 11:00:00 AM, [address] [place] [address] Drive, [address], [place], [place], [phone], Progress Notes * Javi SMITH DDOB:1985 (39 yo M)Acc No.[id number]:11/16/2024 Progress Notes Patient:?Javi Smith Provider:?Alfonso Sierra MD :1985???Age:39 Y???Sex:Male Americo e:11/16/2024 Address:[address] [place] [address] [phone] Subjective: * Chief Complaints: * ???4 week [...] Provider:?Alfonso Sierra MD Date:?0 11/16/2024 Generated for Juan Ramoni juan f/Azeem/eTransmitting on:?03/10/2025 10:33 AM EDT History and Physical Notes * HPI [...]
--- OUTSIDE RECORDS SUMMARY | 2025-03-10 10:33 | XMS_ITS ---
Author Organization [facility] Address [address] [place] [address] Care Team Providers Care Obstetrics Gynecology Md Name Role Phone Alfonso Sierra MD Primary Care Provider Lacho Zhou Jr REASON FOR VISIT elevated ammonia level Encounters Encounter Location Date Provider Diagnosis [facility] [address] [facility] [address] [place] [phone] 04/29/2024 Lacho Eagle Jr Plan Of Treatment Next Appt Details Provider Name:Lacho funes Jr, 03/23/2025 09:40:00 AM, [address] [facility], [address], [place], [phone], Progress Notes * GEORGE PATINO DDOB:1985 (40 yo M)Acc No.[id number]:04/29/2024 Progress Notes Patient:?GEORGE PATINO Provider:?Lacho Eagle MD :1985???Age:39 Y???Sex:Male Americo e:04/29/2024 Address:[address] [place] [phone] Pcp:Alfonso Sierra MD Subjective: * Chief Complaints: * ???1. Elevated ammonia level . * Medical History:? Objective: * Vitals:? Assessment: Plan: * Treatment: * * The named appointment provid er may or may not be the originator of this progress note, and it is not deemed complete until electronically signed by the appointment provider. Sign off status: Pending * Provider:?Lacho Eagle MD Date:?0 04/29/2024 Generated for Kee rogel/Azeem/Lynette on:?03/10/2025 10:33 AM EDT
--- OUTSIDE RECORDS SUMMARY | 2025-03-10 10:34 | XMS_ITS ---
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 dr dean is following 12/14/2024 Compression fracture [...] DEXA 04/13/2025 Next Appt Details Provider Name:Alfonso Avendano ier, 03/17/2025 11:00:00 AM, [address] [place] [address], [address], [place], [place], [phone], Progress Notes * Javi SMITH DDOB:1985 (39 yo M)Acc No.[id number]:12/14/2024 Progress Notes Patient:?Javi SMITH Provider:?Alfonso Sierra MD :1985???Age:39 Y???Sex:Male Americo e:12/14/2024 Address:[address] [place] [phone] Subjective: * Chief Complaints: * ???1 month * HPI: ???Symptom(s):?patient is a 39 yo male here for one month follow up visit,? is seeing pain management. * ROS:?General/Constitutional:?Denies?Chills.?Denies?Fatigue.?Denies?Fever.?Denies?Headache.?ENT:?Patient denies?decreased sense of smell, any loss of taste, sore throat.?Denies?Sore throat.?Respiratory:?Denies?Cough.?Denies?Shortness of breath at rest.?Denies?Shortness [...] Allergies:?N.K.D.A.yes[Aller gies Verified] Objective: * Vitals:?Ht: 64, Wt: 134, BMI :23, BP:92/48, Wt-k.78. * Examination: ???General Examination: ?GENERAL APPEARANCE:?alert, well hydrated, in no distress.?HEAD:?normocephalic.?SKIN:?good turgor.?HEART:?no murmurs, rubs, gallops, regular rate and rhythm.?LUNGS:?no wheezes, rales, rhonchi, good air movement, clear to auscultation bilaterally.? Assessment: * Assessment: 1.?Primary sclerosing cholan gitis - K83.01 (Primary)???2.?Osteopetrosis - Q78.2???3.?Compression fracture of thoracic vertebra with routine healing, unspecified thoracic vertebral level, subsequent encounter - S22.000D??? Plan: * Treatment: 2.?Osteopetrosis? Notes: on forteo. dr dean is following?? 3.?Compression fracture of t horacic vertebra with routine healing, unspecified thoracic vertebral level, subsequent encounter?Imaging: BONE DENSITY DEXA (Ordered for 04/13/2025) Notes: doing better with a little pain?? Clinical Notes: BONE DENSITY ORDER PRINTED AND PUT INTO FUTURE FOLDER ?? * Procedure Codes:? * * Sign off status: Completed true * Provider:?Alfonso Sierra MD Date:?0 12/14/2024 Generated for Kee rogel/Azeem/eTransmitting on:?03/10/2025 10:34 AM EDT History and Physical Notes * [...]
--- OUTSIDE RECORDS SUMMARY | 2025-03-10 10:34 | XMS_ITS | Continuity of Care Document ---
Author Organization [facility] Address [address] [place] [address] Phone [phone] Social History Type Date Description Comments Sex Unknown Medical Devices Description No Information Available Encounters Description No Information Available Assessments Description No Information Available Plan of Treatment No Information Available Functional Status Description No Information Available Mental Status Description No Information Available Referrals Description No Information Available
--- OUTSIDE RECORDS SUMMARY | 2025-03-10 10:34 | XMS_ITS ---
Author Organization Alfonso Sierra MD Address [address] [place] [phone] Care Team Providers Care Acquisitions Editor Name Role Phone Alfonso Sierra Primary Care Provider Results Component Value Reference Range Notes Complete Blood Count Auto Di ff (Not yet reviewed by provider) Interpretation: Performing Lab:[facility], [address] [place] [phone] Notes/Report: White Blood Count 5.3 4.8-10.8 X10*3/uL [...] NRBC Abs Auto 0.000 0.0-0.012 X10*3/uL Comprehensive [place]. Panel Fa st (Not yet reviewed by provider) Interpretation: Performing Lab:[facility], [address] [place] [phone] Notes/Report: Sodium 138 135-145 mmol/L Potassium 4.5 [...] Alkaline Phosphatase 294 39-117 U/L Lipid Panel (Not yet reviewe d by provider) Interpretation: Performing Lab:[facility], [address] [place] [phone] Notes/Report: Triglycerides 86 <150 mg/dL Desirable Triglyceride: [...] liver disease. UA ClnCatch+Micro w/rflx Cul t (Not yet reviewed by provider) Interpretation: Performing Lab:[facility], [address] [place] [phone] Notes/Report: Urine, Clean Catch Color Urine Dark Yellow Appearance Urine Clear PH 5.5 5.0-9.0 Glucose Urine UA Negative Negative mg/dL Urine Blood Negative Negative Specific [place] - Urine >= 1.030 1.005-1.025 Urine Protein [...] Date Provider Diagnosis Alfonso Sierra MD [address] [place], [place] [phone] 03/10/2025 Alfonso Sierra Blood tests for routine general physical examination Z00.00 and 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 Assessments Encounter Date Diagnosis (ICD Code) Assessment Notes Treatment Notes Treatment Clinical Notes Section Notes 03/10/2025 Blood tests for routine general physical examination (ICD-10 - Z00.00) 03/10/2025 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) Plan Of Treatment Pending Test Test Name Order Date Complete Blood Count Auto Diff 5 Comprehensive [place]. Panel Fast 5 Lipid Panel 03/10/2025 UA ClnCatch+Micro w/rflx Cult 03/10/2025 Next Appt Details Provider Name:Alfonso Avendano ier, 03/17/2025 11:00:00 AM, [address], [address], [place], [place], [phone], Progress Notes * CAREY Javi DDOB:1985 (40 yo M)Acc No.[id number]:03/10/2025 Progress Note Patient:?Javi SMITH Provider:?Alfonso Sierra MD :1985???Age:40 Y???Sex:Male Americo e:03/10/2025 Address:[address] [place], [place] [phone] Subjective: * Chief Complaints: * ???1. FASTING LABS. * Medical History:? Objective: * Vitals:? Assessment: * Assessment: 1.?Blood tests for routine g eneral physical examination - Z00.00 (Primary)???2.?Primary sclerosing cholangitis - K83.01??? Plan: * Treatment: 2.?Primary sclerosing cholan gitis?LAB: Complete Blood Count Auto Diff (Collection Date & Time - 03/10/2025 07:45 AM) ?LAB: Comprehensive [place]. Panel Fast (Collection Date & Time - 03/10/2025 07:45 AM) ?LAB: Lipid Panel (Collection Date & Time - 03/10/2025 07:45 AM) ?LAB: UA ClnCatch+Micro w/rflx Cult (Collection Date & Time - 03/10/2025 07:45 AM) * Procedure Codes:?50508 VENIP UNCT, ROUTINE* * * The named appointment provid er may or may not be the originator of this progress note, and it is not deemed complete until electronically signed by the appointment provider. Sign off status: Pending * Provider:?Alfonso Sierra MD Date:?0 03/10/2025 Generated for Kee rogel/Azeem/Juanitting on:?03/10/2025 10:34 AM EDT
--- OUTSIDE RECORDS SUMMARY | 2025-03-10 10:34 | XMS_ITS | Patient Health Record ---
Author Organization [facility] Address [address] [place] [address] Care Team Providers Care Stores Assistant Name Role Phone Alfonso Sierra MD Primary Care Provider Lacho Zhou Jr Unavailable Allergies No Known Allergies Results Component Value Reference Range Notes Liver Fibrosis Pnl Reviewed date:05/21/2024 07:37:30 AM Interpretation: Performing Lab:[facility], [address] [place] [phone] Notes/Report: Liver Fibrosis Score 0.42 Liver Fibrosis [...] a>0.62 and a<=1.00 : A3 (severe activity) AGZ-Zwtyn-5-Macroglobuli n 171 106-279 mg/dL FIB-Haptoglobin 136 43-212 mg/dL FIB-Apolipoprotein A1 110 94-176 mg/dL FIB-Total Bilirubin 1.0 0.2-1.2 mg/dL FIB-GGT 130 3-90 U/L FIB-ALT 107 9-46 U/L Reference ID [id number] Footnote SEE NOTE The reliability of results is dependent on compliance with the preanalytical and analytical conditions recommended by [employer]. The tests have to be deferred for: [...] The performance characteristics have been determined by [employer], [employer]. It has not been cleared or approved by the U.S. Food and Drug Administration. Performance characteristics refer to the analytical performance of the test. [employer], the associated logo, Lema21 and all associated [email or web address] carson are the registered trademarks of [employer]. All third constitution party carson - (R) and (TM) - are the property of their respective owners. (C) 8628-5716 [employer]. All rights reserved. THIS TEST WAS PERFORMED AT: [employer] [address] [place] [address] RUBINA OWENS MD,PHD,LATANYA Liver Panel Reviewed date:05/13/2024 11:22:38 AM Interpretation: Performing Lab:[facility], [address] [place] [phone] Notes/Report: Bilirubin Total 1.1 0.0-1.0 mg/dL Bilirubin Direct 0.4 0.0-0.5 mg/dL Aspartate Amino Transferase 70 5-37 U/L Alanine Aminotransferase 126 0-40 U/L Total Protein 7.7 6.5-8.0 g/dL Albumin Level 4.3 3.5-5.0 g/dL Alkaline Phosphatase 366 39-117 U/L Ammonia Reviewed date:05/13/2024 11:22:59 AM Interpretation: Performing Lab:[facility], [address] [place] [phone] Notes/Report: Ammonia < 14 13-55 umol/L US abdomen complete Reviewed date:12/07/2024 02:40:22 PM Interpretation: Performing Lab: Notes/Report: [address] [address] Ultrasound Report Signed Patient: George Smith MR#: [id number] 8 : 1985 Acct:[id number] Age/Sex: 39 / M ADM Date: 10/26/24 Loc: HO.US Attending Dr: Alfonso Sierra MD Ordering Physician: Alfonso Sierra MD Date of Service: 10/26/24 Procedure(s): US abdomen complete Accession Number(s): [id number] cc: Alfonso Sierra MD; Lacho Eagle MD EXAMINATION: US ABDOMEN COMPLETE CLINICAL INFORMATION: Cholangitis. COMPARISON: CT abdomen and pelvis of 04/01/2024, ultrasound abdomen 03/28/2024 TECHNIQUE: Real-time imaging of the abdominal viscera. Limited visualization due to bowel gas. FINDINGS: PANCREAS: Limited visualization of pancreatic tail and head. Imaged portion of pancreatic body is unremarkable. ABDOMINAL AORTA: Limited visualization of the abdominal aorta. Imaged portions of the abdominal aorta are within normal limits in caliber. INFERIOR VENA CAVA: Limited visualization. LIVER: Redemonstration of echogenic portal triads which can be associated with primary sclerosing cholangitis. There appears to be some subtle nodularity to the hepatic contour. Hepatic echotexture is mildly heterogeneous. Limited visualization. GALLBLADDER: A 0.7 cm gallstone. Gallbladder wall thickness of 0.2 cm. Gallbladder appears moderately distended. COMMON BILE DUCT: Normal in caliber measuring 0.2 cm in diameter. RIGHT KIDNEY: No hydronephrosis. No renal calculi. Limited visualization. Limited visualization of the kidney with possible malrotation. The kidney measures 10.1 cm in maximum dimension. LEFT KIDNEY: No hydronephrosis. No renal calculi. Limited visualization. The kidney measures 10.4 cm in maximum dimension. SPLEEN: The spleen measures 11.3 cm in maximum dimension. FREE FLUID: None. US/US abdomen complete IMPRESSION: 1. Redemonstration of echogenic portal triads which can be associated with primary sclerosing cholangitis. There appears to be some subtle nodularity to the hepatic contour. Hepatic echotexture is mildly heterogeneous. Correlation with liver function tests and clinical exam recommended to determine further management. 2. A 0.7 cm gallstone. Gallbladder wall thickness of 0.2 cm. Gallbladder appears moderately distended. Electronically signed by: Gail Baca MD 12/07/2024 05:54 AM [facility] Dictated By: Gail Baca MD Signed By: <Electronically signed by Gail Baca MD in OV> 12/07/24 0554 DD/ TD/TT: 10/26/24 0932 Corrugator: [place] [address] Ultrasound Report Signed Patient: George Smith MR#: [id number] 8 : 1985 Acct:[id number] Age/Sex: 39 / M ADM Date: 10/26/24 Loc: HO.US Attending Dr: Alfonso Sierra MD Ordering Physician: Alfonso Sierra MD Date of Service: 10/26/24 Procedure(s): US abdomen complete Accession Number(s): [id number] cc: Alfonso Sierra MD; Lacho Eagle MD EXAMINATION: US ABDOMEN COMPLETE CLINICAL INFORMATION: Cholangitis. COMPARISON: CT abdomen and pelvi s of 04/01/2024, ultrasound abdomen 03/28/2024 TECHNIQUE: Real-time imaging of the abdominal viscera. Limited visualizatio n due to bowel gas. FINDINGS: PANCREAS: Limited visualization of pancreatic tail and head. Imaged portion of pancreati c body is unremarkable. ABDOMINAL AORTA: Limited visualization of the abdominal aorta. Imaged portions of the abdominal aorta are within normal limits in caliber. INFERIOR VENA CAVA: Limited visualization. LIVER: Redemonstrati on of echogenic portal triads which can be associated with prim yobany sclerosing cholangitis. There appears to be some subtle nodulari ty to the hepatic contour. Hepatic echotexture is mildly heterogeneous . Limited visualization. GALLBLADDER: A 0.7 c m gallstone. Gallbladder wall thickness of 0.2 cm. Gallbladder appears moderately distended. COMMON BILE DUCT: Normal in caliber measuring 0.2 cm in diameter. RIGHT KIDNEY: No hydronephrosis. No renal calculi. Limited visualization. Limited visualizatio n of the kidney with possible malrotation. The kidney measures 10.1 cm in maximum dimension. LEFT KIDNEY: No hydronephrosis. No renal calculi. Limited visualization. The kidney measures 10.4 cm in maximum dimension. SPLEEN: The spleen measures 11.3 cm in maximum dimension. FREE FLUID: None. US/US abdomen complete IMPRESSION: 1. Redemonstration o f echogenic portal triads which can be associated with primary scleros ing cholangitis. There appears to be some subtle nodularity to the hepatic contour. Hepatic echotexture is mildly heterogeneous. Correlation with liver function tests and clinical exam recommended to determine further management. 2. A 0.7 cm gallston e. Gallbladder wall thickness of 0.2 cm. Gallbladder appears moderately distended. Electronically camille d by: Gail Baca MD 12/07/2024 05:54 AM [facility] Dictated By: Gail Baca MD Signed By: <Electronically signed by Gail Baca MD in OV> 12/07/24 0554 DD/ 0918 TD/TT: 10/26/24 0932 Corrugator: Reason For Referral No Information Medications Medication SIG (Take, Route, Frequency, Duration) Notes [...] Gabapentin 100 MG TAKE 1 CAPSULE BY [facility] 3 TIMES A DAY Oral for 30 Active Immunizations Vaccine Route Administration Date Status Comme nts Influenza Unknown 01/07/2019 Refused Influenza Unknown 10/30/2022 Refused Influenza Unknown 03/22/2024 Refused Problems Problem Type SNOMED Code ICD Code Onset Dates Problem Status W/U Status Risk Notes Problem 882445285 Ulcerative pancolitis without complication (K51.00) Active confirmed Problem Ulcerative pancolitis (333757485) Ulcerative pancolitis (K51.00) Active confirmed Problem Ulcerative colitis (70278852) Ulcerative colitis, unspecified (K51.90) Active confirmed Problem 838673161 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 Problem 343126214 Sclerosing cholangitis (K83.09) Active confirmed Vital Signs Temperature 98.0 degrees Fahrenheit 05/10/2024 Blood pressure diastolic 00 mm Hg 05/10/2024 Height 65.50 in 05/10/2024 Blood pressure systolic 000 mm Hg 05/10/2024 Weight 125 lb 6 oz lbs 05/10/2024 BMI 20.54 kg/m2 05/10/2024 Encounters Encounter Location Date Provider Diagnosis [facility] [address] [place] [phone] 03/22/2024 Lacho Eagle Jr Ulcerative pancolitis K51.00 and Sclerosing cholangitis K83.09 [facility] [address] [place] [phone] 05/10/2024 Lacho Eagle Jr Sclerosing cholangitis K83.09 and Ulcerative pancolitis without complication K51.00 [facility] [address] [place] [phone] 03/30/2024 Lacho Eagle Jr Primary sclerosing cholangitis 576.1 and Unspecified ulcerative colitis 556.9 [facility] [address] [place] [phone] 04/28/2024 Lacho Eagle Jr [facility] [address] [place] [address] 05/21/2024 Lacho Eagle Jr Assessments Encounter Date Diagnosis (ICD Code) Assessment Notes Treatment Notes Treatment Clinical Notes Section Notes 03/22/2024 Ulcerative pancolitis (ICD-10 - K51.00) Currently he is doing well with respect to his GI issues. He is due for followup labs and ultrasound. These will be arranged. No changes are made to his medical treatment at this time. Followup will be in one year. 03/22/2024 Sclerosing cholangitis (ICD-10 - K83.09) Currently he is doing well with respect to his GI issues. He is due for followup labs and ultrasound. These will be arranged. No changes are made to his medical treatment at this time. Followup will be in one year. 05/10/2024 Ulcerative pancolitis without complication (ICD-10 - K51.00) He appears stabl e with respect to his sclerosing cholangitis and colitis. He will continue his present medical regimen. Followup laboratory testing will be arranged. He is up-to-date on imaging have CT scanning was done during his hospitalization which showed his liver to be normal. We reviewed this today. 05/10/2024 Sclerosing cholangitis (ICD-10 - K83.09) Liver disease - resources material was printed He appears stable with respect to his sclerosing cholangitis and colitis. He will continue his present medical regimen. Followup laboratory testing will be arranged. He is up-to-date on imaging have CT scanning was done during his hospitalization which showed his liver to be normal. We reviewed this today. 03/30/2024 Primary sclerosing cholangitis (ICD9-CM - 576.1) 03/30/2024 Unspecified ulcerative colitis (ICD9-CM - 556.9) Plan Of Treatment Pending Test Test Name Order Date LIVER PROFILE 09/10/2013 LIVER PROFILE 08/02/2015 LIVER PROFILE 10/30/2022 LIVER PROFILE 03/22/2024 LIVER PROFILE 05/10/2024 AMMONIA 05/10/2024 CBC w/o DIFF 10/30/2022 CBC w/o DIFF 03/22/2024 PROTHROMBIN TIME (PT, INR) 10/30/2022 PROTHROMBIN TIME (PT, INR) 03/22/2024 US ABD 10/30/2022 US ABD 03/22/2024 Liver Fibrosis Pnl 10/30/2022 Liver Fibrosis Pnl 03/22/2024 Future Test Test Name Order Date LIVER PROFILE 03/30/2012 CBC w DIFF 03/30/2012 PROTHROMBIN TIME (PT, INR) 03/30/2012 COLONOSCOPY 01/07/2019 COLONOSCOPY 10/30/2022 Next Appt Details Provider Name:Lachomelo funes Jr, 03/23/2025 09:40:00 AM, [address] [place] [address], [address], [place], [address], Insurance Providers Payer Name Payer Address Payer Phone Subscriber Number Group Number Insured Name Patient Relationship to Insured Coverage Start Date Coverage End Date [facility] [address] [address] [place], [place] [id number] GEORGE SMITH Self - patient is the insured [facility] [address] [employer], [place] [id number] GEORGE SMITH Self - patient is the insured Medical (General) History Medical History History ICD Code primary sclerosing cholangitis ulcerative colitis, diagnosi s 08/11, current treatment Lialda, colonoscopy 12/26, no active colitis on biopsies, three-year followup spinal fractures surgery february 04, 2023 Pulmonary embolus Surgical History Surgery Date(Month/Year) Right inguinal herniorrhaphy 04/2017 spinal fracures 02/2023
--- OUTSIDE RECORDS SUMMARY | 2025-03-10 10:34 | XMS_ITS ---
Author Organization [facility] Address [address] [place] [address] Care Team Providers Care Polyethylene Combiner Name Role Phone Alfonso Sierra MD Primary Care Provider Krystyna Eagle Jr, Lacho Dixon REASON FOR VISIT labs Encounters Encounter Location Date Provider Diagnosis [facility] [address] [place] [address] 05/21/2024 Lacho Eagle Jr Plan Of Treatment Next Appt Details Provider Name:Lacho funes Jr, 03/23/2025 09:40:00 AM, [address], [address], [place], [address], Progress Notes * GEORGE PATINO DDOB:1985 (39 yo M)Acc No.[id number]:05/21/2024 Patient:?GEORGE PATINO :1985???Age:39 Y???Sex:Male Address:[address] [place] [address] * true * Date:? Generated for Printi ng/Faxing/eTransmitting on:?03/10/2025 10:34 AM EDT
--- OUTSIDE RECORDS SUMMARY | 2025-03-10 10:34 | XMS_ITS | Patient Health Record ---
Author Organization Alfonso Sierra MD Address [address] [place], [place] [id number] Care Team Providers Care Shingle Trimmer Name Role Phone Alfonso Sierra Primary Care Provider Allergies No Known Allergies Results Component Value Reference Range Notes Complete Blood Count Auto Di ff (Not yet reviewed by provider) Interpretation: Performing Lab:[facility], [address] [place] [phone] Notes/Report: White Blood Count 5.3 4.8-10.8 X10*3/uL [...] 0.0 0.0-0.2 /100WBC Neutrophils Absolute Auto 2.9 2.0-8. 3 x10*3/uL Imm Gran Abs Auto 0.01 0.00-0.03 X10*3/uL Lymphocytes Absolute Auto 1.3 1.2-4. 9 X10*3/uL Monocytes Absolute Auto 0.7 0.1-1.2 X10*3/uL Eosinophils Absolute Auto 0.3 0.0-0. 4 X10*3/uL Basophils Absolute Auto 0.1 0.0-0.2 X10*3/uL NRBC Abs Auto 0.000 0.0-0.012 X10*3/uL Comprehensive [place]. Panel Fa st (Not yet reviewed by provider) Interpretation: Performing Lab:[facility], [address] [place] [phone] Notes/Report: Sodium 138 135-145 mmol/L Potassium 4.5 [...] yet reviewe d by provider) Interpretation: Performing Lab:[facility], [address] [place] [phone] Notes/Report: Triglycerides 86 <150 mg/dL Desirable Triglyceride: [...] (Not yet reviewed by provider) Interpretation: Performing Lab:[address] [phone] Notes/Report: Urine, Clean Catch Color Urine Dark Yellow Appearance Urine Clear PH 5.5 5.0-9.0 Glucose Urine UA Negative Negative mg/dL Urine Blood Negative Negative Specific [place] - Urine >= 1.030 1.005-1.025 Urine Protein Negative Neg-Trace mg/dL Urine Ketones Trace Negative mg/dL Nitrite Urine Negative Negative Leukocyte Esterase Urine Trace Negative RBC Urine 0-2 0-2 /HPF WBC Urine 0-5 0-5 /HPF Squamous Epithelial Cell Urine 0-2 0-2 /HPF Bacteria Urine None Seen None Seen Hyaline Casts Urine 0-2 0-2 /LPF PSA,Total (Free>4and<10) Reviewed date:03/12/2024 08:18:53 AM Interpretation: Performing Lab:[address] [phone] Notes/Report: PSA,Total (Free>4and<10) 0.99 0.00-4. 00 ng/mL A Free PSA was not performed: [...] Vega Alinity i Chemiluminescent Microparticle Immunoassay (CMIA) Hold Green Gel Reviewed date:03/11/2024 05:09:57 PM Interpretation: Performing Lab:[facility], [address] [place] [phone] Notes/Report: Hold Green Gel See Note Specimen held untested for 24 hours; Call to request Chemistry testing. Complete Blood Count Auto Di ff Reviewed date:03/30/2024 12:24:52 PM Interpretation: Performing Lab:[facility], [address] [place] [phone] Notes/Report: White Blood Count 15.1 4.8-10.8 X10*3/uL [...] 1.6 0.0-0.2 /100WBC Neutrophils Absolute Auto 12.0 2.0-8. 3 x10*3/uL Imm Gran Abs Auto 0.36 0.00-0.03 X10*3/uL Lymphocytes Absolute Auto 1.7 1.2-4. 9 X10*3/uL Monocytes Absolute Auto 0.8 0.1-1.2 X10*3/uL Eosinophils Absolute Auto 0.2 0.0-0. 4 X10*3/uL Basophils Absolute Auto 0.1 0.0-0.2 X10*3/uL NRBC Abs Auto 0.240 0.0-0.012 X10*3/uL Pathologist Review - CBC Reviewed date:03/30/2024 12:24:29 PM Interpretation: Performing Lab:[facility], [address] [place] [phone] Notes/Report: Pathologist Review - CBC SEE NOTE White blood cells are increased in number and consist mostly of mature granulocytes; rare left-shifted forms with toxic vacuoles are seen. - Alec Bryant M.D. Pathology Prothrombin Time INR Reviewed date:03/29/2024 01:42:16 PM Interpretation: Performing Lab:[facility], [address] [place] [phone] Notes/Report: Prothrombin Time 12.1 11.1-13.3 SEC INTERNATIONAL [...] Time Reviewed date:03/29/2024 01:45:49 PM Interpretation: Performing Lab:[facility], [address] [place] [phone] Notes/Report: Partial Thromboplastin Time 34.0 26.0-36.8 SEC For information regarding the monitoring of direct thrombin inhibitors, please refer to Pharmacy. Hold Lt Blue - Possible Coag Reviewed date:03/29/2024 01:32:57 PM Interpretation: Performing Lab:[facility], [address] [place] [phone] Notes/Report: Hold Lt Blue - Possible Coag SEE NOTE Specimen will be held untested for 4 hours. Call Hematology if testing is desired. Comprehensive Met. Panel Reviewed date:03/30/2024 08:40:41 AM Interpretation: Performing Lab:[facility], [address] [place] [phone] Notes/Report: Sodium 146 135-145 mmol/L Potassium 3.3 [...] Glomerular Filt Rate > 60 NOTE: For -Stateless individuals, multiply the result by 1.210. Chronic [...] Acid Reviewed date:03/29/2024 01:32:21 PM Interpretation: Performing Lab:[facility], [address] [place] [phone] Notes/Report: Lactic Acid 15.2 0.5-2.0 mmol/L Critical value for test LACTIC: Results called to and read back by: АННА Person calling: HARDIK Date: 03/28/24 Time: 1058 Magnesium Reviewed date:03/29/2024 01:38:27 PM Interpretation: Performing Lab:[facility], [address] [place] [phone] Notes/Report: Magnesium 2.3 1.6-2.6 mg/dL Ammonia Reviewed date:03/29/2024 01:30:42 PM Interpretation: Performing Lab:[facility], [address] [place] [phone] Notes/Report: Ammonia 175 13-55 umol/L Glucose, Whole Blood Reviewed date:03/29/2024 01:32:34 PM Interpretation: Performing Lab:[facility], [address] [place] [phone] Notes/Report: Glucose, Whole Blood 121 60-115 mg/dL METER # : [id number] Drug Screen Urine Reviewed date:03/29/2024 01:30:20 PM Interpretation: Performing Lab:[facility], [address] [place] [phone] Notes/Report: Opiate Screen Urine Not Detected Not [...] purposes. Methadone Screen, Urine Not Detected Not Dete ct ng/mL Methadone cut-off is 300 ng/mL. Positive results are unconfirmed and should not be used for non-medical purposes. Fentanyl, urine Not Detected Not Detect Fentanyl cut-off is 1 ng/mL. Positive results are unconfirmed and should not be used for non-medical purposes. Oxycodone Screen Urine Not Detected Not Detec t ng/mL Oxycodone cut-off is 100 ng/mL. Positive results are unconfirmed and should not be used for non-medical purposes. Buprenorphine Scr Not Detected Not Detect ng/mL Buprenorphine cut-off is 5 ng/mL. Positive results are unconfirmed and should not be used for non-medical purposes. Urine Culture Reviewed date:03/30/2024 12:25:06 PM Interpretation: Performing Lab:[address] [phone] Notes/Report: Urine Culture No growth. SARS-CoV2/FLU/RSV Reviewed date:03/29/2024 01:30:56 PM Interpretation: Performing Lab:[address] [phone] Notes/Report: Influenza A PCR NEGATIVE Negative Influenza [...] by authorized laboratories. Testing performed on the [employer] GeneXpert utilizing real-time RT-PCR. All SARS CoV2 and positive influenza A/B results are reported to [facility]. Blood Culture (First) Reviewed date:03/31/2024 04:43:32 PM Interpretation: Performing Lab:[address] [phone] Notes/Report: Blood Culture (First) BC Positive/Drawn Results [...] by JOE GOLDBERG RN on 03/29/24 at 08 by SATHYA. Blood Culture (Second) Reviewed date:03/31/2024 04:43:32 PM Interpretation: Performing Lab:[facility], [address] [place] [phone] Notes/Report: Blood Culture (Second) Results of Blood [...] (Second) Gram stain review ed by a Chemical Process Analyst Results of Blood Culture gram stain sent by a secure message and confirmed by AMENA/GLENIS on 03/30/24 at 0355 by DOMINIK. O:STRVID Streptococcus virida ns group Blood Culture (Second) Unlikely path Results [...] ONLY Reviewed date:03/29/2024 01:31:10 PM Interpretation: Performing Lab:[facility], [address] [place] [phone] Notes/Report: Lactic Acid-LAB USE ONLY 1.1 0.5-2.0 mmol/L UA ClnCatch+Micro w/rflx Cul t Reviewed date:03/30/2024 12:44:37 PM Interpretation: Performing Lab:[facility], [address] [place] [phone] Notes/Report: [id number] Urine, Catheterized Color Urine Dark Yellow Appearance Urine Clear PH 6.0 5.0-9.0 Glucose Urine UA Negative Negative mg/dL Urine Blood Negative Negative Specific [place] - Urine >= 1.030 1.005-1.025 Urine Protein [...] POC Reviewed date:03/29/2024 01:29:51 PM Interpretation: Performing Lab:[facility], [address] [place] [phone] Notes/Report: VBG pH 6.96 7.32-7.43 METER #: [id number] additional_comment: nabil meza ctrbb flemink VBG pCO2 64 METER #: [id number] additional_comment: nabil meza ctrbb flemink VBG pO2 60 METER #: [id number] additional_comment: nabil meza ctrbb flemink VBG Base Excess -18.2 METER #: [id number] additional_comment: nabil meza ctrbb flemink VBG HCO3 14 22-26 mmol/L METER #: [id number] additional_comment: nabil cazares VBG O2 % Saturation 72.0 METER #: [id number] additional_comment: nabil robbins fleminsaeed Hold Green Gel Reviewed date:03/29/2024 01:32:47 PM Interpretation: Performing Lab:[facility], [address] [place] [phone] Notes/Report: Hold Green Gel See Note Specimen held untested for 24 hours; Call to request Chemistry testing. CT thoracic spine w con Reviewed date:03/29/2024 01:35:31 PM Interpretation: Performing Lab: Notes/Report: [address] [place] [address] CT Scan Report Signed Patient: Javi Smith MR#: [id number] 8 : 1985 Acct:[id number] Age/Sex: 39 / M ADM Date: 03/28/24 Loc: HO.ED Attending Dr: Ordering Physician: Nita Garza Date of Service: 03/28/24 Procedure(s): CT thoracic spine w IV con Accession Number(s): [id number] cc: Alfonso Sierra MD; Nita Garza EXAMINATION: CT THORACIC SPINE WITH CONTRAST CT LUMBAR SPINE WITH CONTRAST CLINICAL INFORMATION: Recent surgery, altered mental status. COMPARISON: Plain films of the lumbar spine earlier. MRI scan of the lumbar and thoracic spines 01/10/2024. CT scan of the thoracic spine [facility] 12/27/2023. 03/28/2024 TECHNIQUE: Thoracic spine, which [...] in OV> 03/28/24 1437 DD/ 1153 TD/TT: Coppersmith Apprentice: MARLY [address] [address] [address] Scan Report Signed Patient: Javi Smith MR#: [id number] 8 : 1985 Acct:[id number] Age/Sex: 39 / M ADM Date: 03/28/24 Loc: HO.ED Attending Dr: Ordering Physician: Nita Garza Date of Service: 03/28/24 Procedure(s): CT tho racic spine w IV con Accession Number(s): [id number] cc: Alfonso Sierra MD; Nita Garza EXAMINATION: CT THORACIC SPINE WI TH CONTRAST CT LUMBAR SPINE WITH CONTRAST CLINICAL INFORMATION: Recent surgery, alte red mental status. COMPARISON: Plain films of the l umbar spine earlier. MRI scan of the lumbar and thoracic spines 01/10/2024. CT scan of the thoracic spine [facility] 12/27. 03/28/2024 TECHNIQUE: Thoracic spine, whic h was demonstrated on prior imaging. Overall, bone mineralization is ma rkedly decreased, consistent with osteopenia/osteoporosis. Postcontrast axial C T scans of the thoracic and lumbar spine were obtained following t he intravenous administration of 85 mL of Omnipaque 350. Coronal and sag ittal reformatted images were generated at the technologist workstation. This CT examination was performed using dose optimization techniques as appropriate, various ly including the following: *Automated exposure control *Adjustment of mA an d/or kV according to patient size (this includes techniques or standa rdized protocols for targeted exams where dose is matched to indication/reason for exam; i.e. extremities or head) *Use of iterative reconstruction technique DLP: 1511 mGy-cm. FINDINGS: CT THORACIC SPINE: VERTEBRAL BODIES AND PARASPINAL STRUCTURES: There is hyperkyphosis in the lower thoracic s pine at the level of T10-T11, demonstrated on prior imaging. There are n ow sequelae of kyphoplasties in the bodies of T10 and T11, demonstrate d on the concurrent plain films of the lumbar spine. There is loss of vertebral body height of T7 and T8 on the current study, not demonstrated on the prior MRI scan. There is invagination of disc into the superior endplates at multiple levels in the upper thoracic s pine. Bone mineralization is diffusely decreased consistent with oste openia or osteoporosis. There is good parenc hymal enhancement of the bilateral kidneys. There is bibasilar atelect asis, more extensive posteriorly on the left. SPINAL LEVELS: C7-T1 through T5-T6: Posterior vertebral body and disc contours are normal in is no cent ral stenosis or cord compression. The neural foramina appear patent. T6-T7: There is slig ht posterior protrusion of the superior body of T7 into the spinal cecy l, but there is no central stenosis and the neural foramina are patent bilaterally. T7-T8: There is post erior protrusion of the superior body of T8 into the spinal canal wit hout significant stenosis. The neural foramina are patent bilaterally. T10-T11: As describe d above there are kyphoplasties at these levels. There is posterior protrusion of the superior body of T11 into the spinal canal with approximately 20% central stenosis. The neural foramina appear patent. CT LUMBAR SPINE: FINDINGS: VERTEBRAL BODIES AND PARASPINAL STRUCTURES: There is overall anatomic alignment of the prerna tebral bodies. There are compression fractures of the bodies of L2, L4 and L5. There has been interval worsening of the compression fracture of the superior body of L4, with invagination of disc into the superi or endplate. There are superior compression fractures of the bod ies of L2 and L5 which are new compared to the prior MRI scan. Intervertebral disc heights are maintained. Bone mineralization is diffusely decreased consistent with osteopenia or osteoporosis. There is a 1.3 cm left renal cyst which does not need further imaging evaluation. There is mild free fluid in the pelvis. There are moderately prominent mesenteric vessels. SPINAL LEVELS: T12-L1: The facet incholas ints appear normal bilaterally. Disc contour is normal. There is no central stenosis or foraminal narrowing. L1-L2: The facet lucy nts appear normal. There is posterior protrusion of the superior body of L2 and the spinal canal with approximately 15-20% central stenosis. Th e neural foramina are patent bilaterally. L2-L3: The facet lucy nts appear normal bilaterally. Disc contour is normal. There is no central stenosis or foraminal narrowing. L3-L4: There is mini mal facet arthropathy bilaterally. There is posterior protrusion of the superior body of L4 into the spinal canal with approximately 3 0-40% central stenosis, not significantly changed compared to prior im aging. The neural foramina are patent bilaterally. L4-L5: The facet lucy nts appear normal bilaterally. There is mild posterior protrusion of the superior body of L5 into the the spinal canal with minimal c entral stenosis. The neural foramina are patent. L5-S1: The facet lucy nts appear normal bilaterally. Disc contour is normal. There is no central stenosis or foraminal narrowing. C T/CT thoracic spine w IV con IMPRESSION: Thoracic Spine: 1. There are now seq uelae of kyphoplasties in the bodies of T10 and T11. There is loss o f vertebral body height of T7 and T8 on the current study, not demonstra manny on the prior MRI scan. Bone mineralization is diffusely decreased consistent with osteopenia or osteoporosis. 2. There is hyperkyp hosis at the level of T10-T11. There are no acute subluxations. The paravertebral structures are unremarkable. Lumbar Spine: 1. There are josey sepideh fractures of the bodies of L2, L4 and L5. The fractures of L2 and L5 are new compared to the prior MRI scan, and there has been inter arvin worsening of the compression fracture of L4. 2. There are posteri or protrusions of the superior bodies of L2, L4 and L5 into the spinal c anal with central stenosis at these levels as described above. The re is posterior protrusion of the superior body of L4 into the spinal c anal at L3-L4 with approximately 30-40% central stenosis. The neural foramina appear patent. 3. There is diffuse osteopenia or osteoporosis. 4. There is mild avis e fluid in the pelvis. Dictated By: VICKIE REAGAN MD Signed By: <Hemant salter signed by AUTUMN REAGAN MD in OV> 03/28/24 1437 DD/ 1153 TD/TT: [employer] Vice President ist: RR CT lumbar spine w con Reviewed date:03/29/2024 01:25:55 PM Interpretation: Performing Lab: Notes/Report: [address] [address] [address] Scan Report Signed Patient: Javi Smith MR#: [id number] 8 : 1985 Acct:[id number] Age/Sex: 39 / M ADM Date: 03/28/24 Loc: HO.ED Attending Dr: Ordering Physician: Nita Garza Date of Service: 03/28/24 Procedure(s): CT lumbar spine w IV con Accession Number(s): [id number] cc: Alfonso Sierra MD; Nita Garza EXAMINATION: CT THORACIC SPINE WITH CONTRAST CT LUMBAR SPINE WITH CONTRAST CLINICAL INFORMATION: Recent surgery, altered mental status. COMPARISON: Plain films of the lumbar spine earlier. MRI scan of the lumbar and thoracic spines 01/10/2024. CT scan of the thoracic spine [facility] 12/27/2023. 03/28/2024 TECHNIQUE: Thoracic spine, which [...] in OV> 03/28/24 1437 DD/ 1153 TD/TT: Coppersmith Apprentice: [address] [address] [address] Scan Report Signed Patient: Javi Smith MR#: [id number] 8 : 1985 Acct:[id number] Age/Sex: 39 / M ADM Date: 03/28/24 Loc: HO.ED Attending Dr: Ordering Physician: Nita Garza Date of Service: 03/28/24 Procedure(s): CT lum bar spine w IV con Accession Number(s): [id number] cc: Alfonso Sierra MD; Nita Garza EXAMINATION: CT THORACIC SPINE WI TH CONTRAST CT LUMBAR SPINE WITH CONTRAST CLINICAL INFORMATION: Recent surgery, alte red mental status. COMPARISON: Plain films of the l umbar spine earlier. MRI scan of the lumbar and thoracic spines 01/10/2024. CT scan of the thoracic spine [facility] 12/27. 03/28/2024 TECHNIQUE: Thoracic spine, whic h was demonstrated on prior imaging. Overall, bone mineralization is ma rkedly decreased, consistent with osteopenia/osteoporosis. Postcontrast axial C T scans of the thoracic and lumbar spine were obtained following t he intravenous administration of 85 mL of Omnipaque 350. Coronal and sag ittal reformatted images were generated at the technologist workstation. This CT examination was performed using dose optimization techniques as appropriate, various ly including the following: *Automated exposure control *Adjustment of mA an d/or kV according to patient size (this includes techniques or standa rdized protocols for targeted exams where dose is matched to indication/reason for exam; i.e. extremities or head) *Use of iterative reconstruction technique DLP: 1511 mGy-cm. FINDINGS: CT THORACIC SPINE: VERTEBRAL BODIES AND PARASPINAL STRUCTURES: There is hyperkyphosis in the lower thoracic s pine at the level of T10-T11, demonstrated on prior imaging. There are n ow sequelae of kyphoplasties in the bodies of T10 and T11, demonstrate d on the concurrent plain films of the lumbar spine. There is loss of vertebral body height of T7 and T8 on the current study, not demonstrated on the prior MRI scan. There is invagination of disc into the superior endplates at multiple levels in the upper thoracic s pine. Bone mineralization is diffusely decreased consistent with oste openia or osteoporosis. There is good parenc hymal enhancement of the bilateral kidneys. There is bibasilar atelect asis, more extensive posteriorly on the left. SPINAL LEVELS: C7-T1 through T5-T6: Posterior vertebral body and disc contours are normal in is no cent ral stenosis or cord compression. The neural foramina appear patent. T6-T7: There is slig ht posterior protrusion of the superior body of T7 into the spinal cecy l, but there is no central stenosis and the neural foramina are patent bilaterally. T7-T8: There is post erior protrusion of the superior body of T8 into the spinal canal wit hout significant stenosis. The neural foramina are patent bilaterally. T10-T11: As describe d above there are kyphoplasties at these levels. There is posterior protrusion of the superior body of T11 into the spinal canal with approximately 20% central stenosis. The neural foramina appear patent. CT LUMBAR SPINE: FINDINGS: VERTEBRAL BODIES AND PARASPINAL STRUCTURES: There is overall anatomic alignment of the prerna tebral bodies. There are compression fractures of the bodies of L2, L4 and L5. There has been interval worsening of the compression fracture of the superior body of L4, with invagination of disc into the superi or endplate. There are superior compression fractures of the bod ies of L2 and L5 which are new compared to the prior MRI scan. Intervertebral disc heights are maintained. Bone mineralization is diffusely decreased consistent with osteopenia or osteoporosis. There is a 1.3 cm left renal cyst which does not need further imaging evaluation. There is mild free fluid in the pelvis. There are moderately prominent mesenteric vessels. SPINAL LEVELS: T12-L1: The facet nicholas ints appear normal bilaterally. Disc contour is normal. There is no central stenosis or foraminal narrowing. L1-L2: The facet lucy nts appear normal. There is posterior protrusion of the superior body of L2 and the spinal canal with approximately 15-20% central stenosis. Th e neural foramina are patent bilaterally. L2-L3: The facet lucy nts appear normal bilaterally. Disc contour is normal. There is no central stenosis or foraminal narrowing. L3-L4: There is mini mal facet arthropathy bilaterally. There is posterior protrusion of the superior body of L4 into the spinal canal with approximately 3 0-40% central stenosis, not significantly changed compared to prior im aging. The neural foramina are patent bilaterally. L4-L5: The facet lucy nts appear normal bilaterally. There is mild posterior protrusion of the superior body of L5 into the the spinal canal with minimal c entral stenosis. The neural foramina are patent. L5-S1: The facet lucy nts appear normal bilaterally. Disc contour is normal. There is no central stenosis or foraminal narrowing. C T/CT lumbar spine w IV con IMPRESSION: Thoracic Spine: 1. There are now seq uelae of kyphoplasties in the bodies of T10 and T11. There is loss o f vertebral body height of T7 and T8 on the current study, not demonstra manny on the prior MRI scan. Bone mineralization is diffusely decreased consistent with osteopenia or osteoporosis. 2. There is hyperkyp hosis at the level of T10-T11. There are no acute subluxations. The paravertebral structures are unremarkable. Lumbar Spine: 1. There are josey sepideh fractures of the bodies of L2, L4 and L5. The fractures of L2 and L5 are new compared to the prior MRI scan, and there has been inter arvin worsening of the compression fracture of L4. 2. There are posteri or protrusions of the superior bodies of L2, L4 and L5 into the spinal c anal with central stenosis at these levels as described above. The re is posterior protrusion of the superior body of L4 into the spinal c anal at L3-L4 with approximately 30-40% central stenosis. The neural foramina appear patent. 3. There is diffuse osteopenia or osteoporosis. 4. There is mild avis e fluid in the pelvis. Dictated By: VIKCIE REAGAN MD Signed By: <Hemant salter signed by AUTMUN REAGAN MD in OV> 03/28/24 1437 DD/ 1153 TD/TT: [employer] Vice President ist: RR CT cervical spine wo con Reviewed date:03/29/2024 01:34:23 PM Interpretation: Performing Lab: Notes/Report: [address] [address] [address] Scan Report Signed Patient: Javi Smith MR#: [id number] 8 : 1985 Acct:[id number] Age/Sex: 39 / M ADM Date: 03/28/24 Loc: HO.ED Attending Dr: Ordering Physician: Nita Garza Date of Service: 03/28/24 Procedure(s): CT cervical spine wo IV con Accession Number(s): [id number] cc: Alfonso Sierra MD; Nita Garza EXAMINATION: [...] in OV> 03/28/24 1218 DD/ 1153 TD/TT: Coppersmith Apprentice: [place] [address] CT Scan Report Signed Patient: Javi Smith MR#: [id number] 8 : 1985 Acct:[id number] Age/Sex: 39 / M ADM Date: 03/28/24 Loc: HO.ED Attending Dr: Ordering Physician: Nita Garza Date of Service: 03/28/24 Procedure(s): CT cer vical spine wo IV con Accession Number(s): [id number] cc: Alfonso Sierra MD; Nita Garza EXAMINATION: CT HEAD WITHOUT CONTRAST CLINICAL INFORMATION: Altered mental status COMPARISON: None TECHNIQUE: Contiguous axial sugar ging was performed from the skull base to vertex without intravenous administration of contrast. This CT examination was performed using dose optimization techniques as appropriate, various ly including the following: *Automated exposure control *Adjustment of mA an d/or kV according to patient size (this includes techniques or standa rdized protocols for targeted exams where dose is matched to indication/reason for exam; i.e. extremities or head) *Use of iterative reconstruction technique DLP: 866.7 mGy-cm FINDINGS: There is no evidence of acute intracranial hemorrhage or territorial infarction. No abnor mal mass effect or midline shift is seen. Yeager to white matter differentiation is well preserved. No extra-axial fluid collections are identified. The ventricles are n ormal in size. There is no abnormal attenuation within the brain parenchyma. The osseous structures and soft tissues are normal. Mucoperi osteal thickening of the bilateral maxillary and right frontal sinus. The mastoid air cells and visualized portions of the paranasal sinuse s are well aerated. C T/CT cervical spine wo IV con IMPRESSION: No acute intracrania l pathology. EXAMINATION: Noncont rast CT scan of the cervical spine. INDICATION: Altered mental status COMPARISON: None. TECHNIQUE: Helical, multidetector axial images were obtained from the occiput to the upper thorax. Coronal and sagittal reformats of the cervical spine were provided for interpretation. DLP: 349.7 mGy-cm FINDINGS: No acute fractures o r dislocations of the cervical spine are seen. Anatomic alignment a nd positioning of the vertebral bodies and posterior elements i s noted. The atlantoaxial joint and craniovertebral articulations are no rmal without evidence of subluxation. There is no prevertebral soft ti ssue swelling. The thyroid gland an d visualized portions of the lung apices and mediastinum are unremarkable. IMPRESSION: No acute visible fra cture or dislocation. Dictated By: Ramon Brewer MD Signed By: <Hemant salter signed by Ramon Brewer MD in OV> 03/28/24 1218 DD/ 1153 TD/TT: Coppersmith Apprentice: CT head/brain wo con Reviewed date:03/29/2024 01:34:51 PM Interpretation: Performing Lab: Notes/Report: [address] [address] [address] Scan Report Signed Patient: Javi Smith MR#: [id number] 8 : 1985 Acct:[id number] Age/Sex: 39 / M ADM Date: 03/28/24 Loc: HO.ED Attending Dr: Ordering Physician: Nita Garza Date of Service: 03/28/24 Procedure(s): CT head/brain wo IV con Accession Number(s): [id number] cc: Alfonso Sierra MD; Nita Garza EXAMINATION: [...] in OV> 03/28/24 1218 DD/ 1153 TD/TT: Coppersmith Apprentice: [address] [address] [address] Scan Report Signed Patient: Javi Smith MR#: [id number] 8 : 1985 Acct:[id number] Age/Sex: 39 / M ADM Date: 03/28/24 Loc: HO.ED Attending Dr: Ordering Physician: Nita Garza Date of Service: 03/28/24 Procedure(s): CT head/brain wo IV con Accession Number(s): [id number] cc: Alfonso Sierra MD; Nita Garza EXAMINATION: CT HEAD WITHOUT CONTRAST CLINICAL INFORMATION: Altered mental status COMPARISON: None TECHNIQUE: Contiguous axial sugar ging was performed from the skull base to vertex without intravenous administration of contrast. This CT examination was performed using dose optimization techniques as appropriate, various ly including the following: *Automated exposure control *Adjustment of mA an d/or kV according to patient size (this includes techniques or standa rdized protocols for targeted exams where dose is matched to indication/reason for exam; i.e. extremities or head) *Use of iterative reconstruction technique DLP: 866.7 mGy-cm FINDINGS: There is no evidence of acute intracranial hemorrhage or territorial infarction. No abnor mal mass effect or midline shift is seen. Yeager to white matter differentiation is well preserved. No extra-axial fluid collections are identified. The ventricles are n ormal in size. There is no abnormal attenuation within the brain parenchyma. The osseous structures and soft tissues are normal. Mucoperi osteal thickening of the bilateral maxillary and right frontal sinus. The mastoid air cells and visualized portions of the paranasal sinuse s are well aerated. C T/CT head/brain wo IV con IMPRESSION: No acute intracrania l pathology. EXAMINATION: Noncont rast CT scan of the cervical spine. INDICATION: Altered mental status COMPARISON: None. TECHNIQUE: Helical, multidetector axial images were obtained from the occiput to the upper thorax. Coronal and sagittal reformats of the cervical spine were provided for interpretation. DLP: 349.7 mGy-cm FINDINGS: No acute fractures o r dislocations of the cervical spine are seen. Anatomic alignment a nd positioning of the vertebral bodies and posterior elements i s noted. The atlantoaxial joint and craniovertebral articulations are no rmal without evidence of subluxation. There is no prevertebral soft ti ssue swelling. The thyroid gland an d visualized portions of the lung apices and mediastinum are unremarkable. IMPRESSION: No acute visible fra cture or dislocation. Dictated By: Ramon Brewer MD Signed By: <Electron ically signed by Ramon Brewer MD in OV> 03/28/24 1218 DD/ 1153 TD/TT: Coppersmith Apprentice: US abdomen limited Reviewed date:03/29/2024 01:36:52 PM Interpretation: Performing Lab: Notes/Report: [address] [address] Ultrasound Report Signed Patient: Javi Smith MR#: [id number] 8 : 1985 Acct:[id number] Age/Sex: 39 / M ADM Date: 03/28/24 Loc: HO.ED Attending Dr: Ordering Physician: Nita Garza Date of Service: 03/28/24 Procedure(s): US abdomen limited Accession Number(s): [id number] cc: Alfonso Sierra MD; Nita Garza EXAMINATION: [...] in OV> 03/28/24 1322 DD/ 1230 TD/TT: Coppersmith Apprentice: [place] [address] Ultrasound Report Signed Patient: Javi Smith MR#: [id number] 8 : 1985 Acct:[id number] Age/Sex: 39 / M ADM Date: 03/28/24 Loc: HO.ED Attending Dr: Ordering Physician: Nita Garza Date of Service: 03/28/24 Procedure(s): US abd omen limited Accession Number(s): [id number] cc: Alfonso Sierra MD; Nita Garza EXAMINATION: US ABDOMEN LIMITED CLINICAL INFORMATION: Elevated LFT. COMPARISON: Prior study November 2022 TECHNIQUE: Real-time imaging of the right upper quadrant abdominal viscera. FINDINGS: PANCREAS: The visual ized portion of the pancreas head and body are normal, portion of t he pancreatic body and tail, not visualized are obscured by bowel gas. 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 The liver is normal in s ize. The liver contour is normal. Parenchymal echogenicity is norm al. No focal hepatic lesion. There is no intrahepatic biliary duct dilatation seen. GALLBLADDER: Markedl y distended The gallbladder is physiologically distended without ev idence of stones, sludge, polyps, wall thickening or pericholecystic fluid. COMMON BILE DUCT: No rmal in caliber measuring 0.3 cm in diameter. RIGHT KIDNEY: Normal . No hydronephrosis. No renal calculi or focal parenchymal lesions. The kidney measures 10.4 cm in maximum dimension. FREE FLUID: None. U S/US abdomen limited IMPRESSION: 1. 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 2. No ultrasound agus dence of focal liver lesion. Dictated By: Rosana Ramirez MD Signed By: <Electron ically signed by Rosana Ramirez MD in OV> 03/28/24 1322 DD/ 1230 TD/TT: [employer] Consumer [employer] Vice President ist: HS XR chest 1V Reviewed date:03/29/2024 01:31:39 PM Interpretation: Performing Lab: Notes/Report: [address] [address] XRay Report Signed Patient: Javi Smith MR#: [id number] 8 : 1985 Acct:[id number] Age/Sex: 39 / M ADM Date: 03/28/24 Loc: .ED Attending Dr: Ordering Physician: Nita Garza Date of Service: 03/28/24 Procedure(s): XR chest 1V Accession Number(s): [id number] cc: Alfonso Sierra MD; Nita Garza EXAMINATION: [...] in OV> 03/28/24 1248 DD/ 1152 TD/TT: Coppersmith Apprentice: [address] [address] XRay Report Signed Patient: Javi Smith MR#: [id number] 8 : 1985 Acct:[id number] Age/Sex: 39 / M ADM Date: 03/28/24 Loc: HO.ED Attending Dr: Ordering Physician: Nita Garza Date of Service: 03/28/24 Procedure(s): XR chest 1V Accession Number(s): [id number] cc: Alfonso Sierra MD; Nita Garza EXAMINATION: XR chest 1V CLINICAL INFORMATION: Reason for Exam AMS COMPARISON: No prior chest x-ray available TECHNIQUE: Single po rtable frontal view. Tubes and lines: None Lungs and pleura: Diminished lung volume, Diffuse increased interstitial lung ma rking and peribronchial cuffing might be a small airway disease such as bronchiolitis or interstitial pneumonitis, versus interstitial lung disease versus interstitial edema. No dense focal consolidation pneumonia. Heart and mediastinu m: Heart and mediastinum are widened exaggerated by AP technique.. Bones/soft tissue: Skeletal structures included are normal for patient's age. X R/XR chest 1V IMPRESSION: 1. Diminished lung volume. 2. Diffuse increased interstitial lung marking and peribronchial cuffing might be a s mall airway disease such as bronchiolitis or interstitial pneumon itis, versus interstitial lung disease versus interstitial edema. No dense focal consolidation pneumonia. Dictated By: Rosana Ramirez MD Signed By: <Hemant salter signed by Rosana Ramirez MD in OV> 03/28/24 1248 DD/ 1152 TD/TT: [employer] Vice President ist: HS XR lumbar spine 2-3V Reviewed date:03/29/2024 01:41:09 PM Interpretation: Performing Lab: Notes/Report: [address] [address] XRay Report Signed Patient: Javi Smith MR#: [id number] 8 : 1985 Acct:[id number] Age/Sex: 39 / M ADM Date: 03/28/24 Loc: .ED Attending Dr: Ordering Physician: Generic ED Physician Date of Service: 03/28/24 Procedure(s): XR lumbar spine 2-3V Accession Number(s): [id number] cc: Alfonso Sierra MD; Generic ED Physician [...] in OV> 03/28/24 1019 DD/ 1000 TD/TT: Coppersmith Apprentice: [place] [address] XRay Report Signed Patient: Javi Smith MR#: [id number] 8 : 1985 Acct:[id number] Age/Sex: 39 / M ADM Date: 03/28/24 Loc: HO.ED Attending Dr: Ordering Physician: Generic ED Physician Date of Service: 03/28/24 Procedure(s): XR lum bar spine 2-3V Accession Number(s): [id number] cc: Alfonso Sierra MD; Generic ED Physician EXAMINATION: XR LUMBOSACRAL SPINE CLINICAL INFORMATION: Low back pain COMPARISON: Mild lumbar spine fr om 01/10/2024 TECHNIQUE: Three views of the lumbosacral spine. FINDINGS: 5 nonrib-bearing lumbar-type vertebral bodies. Status post vertebral augmentation of T10 and T11. Loss of height of the superior endplate of L5, chronicity indeterminate. Redemonstrated loss of height of superior endplate of L4. Vert ebral body heights and disc spaces are otherwise maintained. Posterio r elements are intact. Paraspinal soft tissues are unremarkable. Fecal loading of the colon. Hernia mesh right lower abdomen. X R/XR lumbar spine 2-3V IMPRESSION: 1. Status post verte bral augmentation of T10 and T11. 2. Loss of height of the superior endplate of L5, chronicity indeterminate. Corre lation with physical exam. 3. Redemonstrated lo ss of height of superior endplate of L4. Dictated By: Ramon Brewer MD Signed By: <Electron icallazeem signed by Ramon Brewer MD in OV> 03/28/24 1019 DD/ 1000 TD/TT: Coppersmith Apprentice: Complete Blood Count no Diff Reviewed date:03/30/2024 12:44:16 PM Interpretation: Performing Lab:[facility], [address] [place] [phone] Notes/Report: White Blood Count 13.0 4.8-10.8 X10*3/uL [...] Panel Reviewed date:03/29/2024 01:46:19 PM Interpretation: Performing Lab:[address] [address] Notes/Report: Sodium 140 135-145 mmol/L Potassium 4.2 [...] Glomerular Filt Rate > 60 NOTE: For -Stateless individuals, multiply the result by 1.210. Chronic [...] Ammonia Reviewed date:03/29/2024 01:28:35 PM Interpretation: Performing Lab:[facility], [address] [place] [phone] Notes/Report: Ammonia 50 13-55 umol/L Complete Blood Count no Diff Reviewed date:03/30/2024 09:06:07 AM Interpretation: Performing Lab:[facility], [address] [place] [phone] Notes/Report: White Blood Count 15.1 4.8-10.8 X10*3/uL [...] Panel Reviewed date:03/30/2024 08:39:40 AM Interpretation: Performing Lab:[facility], [address] [place] [phone] Notes/Report: Bilirubin Total 1.9 0.0-1.0 mg/dL Bilirubin Direct 0.7 0.0-0.5 mg/dL Aspartate Amino Transferase 51 5-37 U/L Alanine Aminotransferase 106 0-40 U/L Total Protein 8.5 6.5-8.0 g/dL Albumin Level 4.4 3.5-5.0 g/dL Alkaline Phosphatase 424 39-117 U/L Basic Metabolic Panel Fastin g Reviewed date:03/30/2024 12:41:10 PM Interpretation: Performing Lab:[address] [address] Notes/Report: Sodium 141 135-145 mmol/L Potassium 4.1 [...] Glomerular Filt Rate > 60 NOTE: For -Stateless individuals, multiply the result by 1.210. Chronic Kidney Disease: Estimated GFR < 60 mL/min/1.73m2 Severe Kidney Disease: Estimated GFR < 15 mL/min/1.73m2 Glucose Fasting 186 60-99 mg/dL A fasting glucose of 126 mg/dl or greater on more than one occasion is considered diagnostic of diabetes. Calcium 10.7 8.4-10.2 mg/dL Lactic Acid Reviewed date:03/30/2024 08:39:18 AM Interpretation: Performing Lab:[facility], [address] [place] [phone] Notes/Report: Lactic Acid 2.7 0.5-2.0 mmol/L Critical lactic sent by a secure message and confirmed by tay anthony 03/30/24 0823 Tech: natan Magnesium Reviewed date:03/30/2024 08:40:19 AM Interpretation: Performing Lab:[facility], [address] [place] [phone] Notes/Report: Magnesium 2.3 1.6-2.6 mg/dL Ammonia Reviewed date:03/30/2024 08:42:38 AM Interpretation: Performing Lab:[facility], [address] [place] [phone] Notes/Report: Ammonia 70 13-55 umol/L Lipase Reviewed date:03/30/2024 08:40:07 AM Interpretation: Performing Lab:[facility], [address] [place] [phone] Notes/Report: Lipase 11 8-78 U/L Blood Culture (First) Reviewed date:04/04/2024 06:08:26 PM Interpretation: Performing Lab:[facility], [address] [place] [phone] Notes/Report: Blood Culture (First) No growth after 5 days. Blood Culture (Second) Reviewed date:04/04/2024 06:08:26 PM Interpretation: Performing Lab:[facility], [address] [place] [phone] Notes/Report: Blood Culture (Second) No growth after 5 days. Lactic Acid-LAB USE ONLY Reviewed date:03/30/2024 12:20:53 PM Interpretation: Performing Lab:[facility], [address] [place] [phone] Notes/Report: Lactic Acid-LAB USE ONLY 2.9 0.5-2.0 mmol/L Critical lactic sent by a secure message and confirmed by Tay Anthony 1044 03/30/24 Tech: natan Cancel Lactic Acid Reviewed date:03/30/2024 12:12:11 PM Interpretation: Performing Lab:[facility], [address] [place] [phone] Notes/Report: Cancel Lactic Acid Canceled Gastric Occult Blood Test Reviewed date:03/30/2024 08:42:53 AM Interpretation: Performing Lab:[facility], [address] [place] [phone] Notes/Report: Occult Blood Gastric POSITIVE NEG CT abdomen pelvis w con Reviewed date:03/30/2024 12:14:13 PM Interpretation: Performing Lab: Notes/Report: [address] [place] [address] CT Scan Report Signed Patient: Javi Smith MR#: [id number] 8 : 1985 Acct:[id number] Age/Sex: 39 / M ADM Date: 03/28/24 Loc: [facility] 474-[address]: Tay Anthony MD Ordering Physician: Maritza Etienne MD Date of Service: 03/30/24 Procedure(s): CT abdomen pelvis w IV con Accession Number(s): [id number] cc: Alfonso Sierra MD; Maritza Etienne MD [...] well. Fleischner guidelines were followed. Dictated By: Manny Ortiz MD Signed By: <Electronically signed by Manny Ortiz MD in OV> 03/30/24 1052 DD/ 1014 TD/TT: Coppersmith Apprentice: [place] [address] CT Scan Report Signed Patient: Javi Smith MR#: [id number] 8 : 1985 Acct:[id number] Age/Sex: 39 / M ADM Date: 03/28/24 Loc: [facility] 474-[address]: Bang Anthony MD Ordering Physician: Maritza Etienne MD Date of Service: 03/30/24 Procedure(s): CT abd omen pelvis w IV con Accession Number(s): [id number] cc: Alfonso Sierra MD; Maritza Etienne MD EXAMINATION: CT ABDOMEN AND PELVI S WITH CONTRAST CLINICAL INFORMATION: Severe abdominal distention COMPARISON: Ultrasound abdomen d ated 03/28/2024 TECHNIQUE: Multidetector volume tric images were obtained from the superior aspect of the liver through the pubic symphysis following administration 85 mL of Omnipaque 350 intravenous contrast. Sagittal and coronal reformatted images were obtained on the technologist's workstation. Oral contrast: No This CT examination was performed using dose optimization techniques as appropriate, various ly including the following: *Automated exposure control *Adjustment of mA an d/or kV according to patient size (this includes techniques or standa rdized protocols for targeted exams where dose is matched to indication/reason for exam; i.e. extremities or head) *Use of iterative reconstruction technique DLP: 512 mGy-cm FINDINGS: LUNG BASES: Bibasila r infiltrates or consolidations and small bibasilar effusions. LIVER, GALLBLADDER, AND BILIARY TREE: Slight periportal edema. There is a history of scleros ing cholangitis in this patient. No suspicious mass or intrahepatic bili yobany dilatation. The gallbladder is unremarkable with no evidence of radiopaque gallstones, gallbladder wall thickening, or obvious perichole cystic inflammatory changes. PANCREAS: Unremarkable. SPLEEN: Unremarkable. ADRENAL GLANDS: Unremarkable. KIDNEYS AND URETERS: No suspicious mass or calcification, hydronephrosis, or perinephric collection. There is a small cyst upper right kidney at 6 mm , and a small cyst medial inferior left kidney at 9 mm. No further caesar p needed. BLADDER: Unremarkable. GASTROINTESTINAL TRA CT: Abnormal. There is extensive distention of the small bowel loops wh ich are fluid-filled. There is a large volume of stool within the col on. The colon is diffusely distended as well. Is the patient on pain medication? There may be trace fluid surrounding the cecum. I do not see any drainable collections or obstructing masses or causes of an acut e obstruction other than the large volume of stool within the rectum. T he appendix is not identified. ABDOMINAL WALL: No significant ventral hernia noted. There are surgical sutures overlying th e right inguinal region. No evidence for recurrent inguinal hernia alth ough some bowel loops extending towards the left inguinal region. LYMPH NODES: Normal. VASCULAR: Unremarkable. PELVIC VISCERA: Unremarkable. OSSEOUS STRUCTURES: There are moderate compression deformities observed, L2, L4, L5 and post vertebral plasty changes observed T10, and T11. C T/CT abdomen pelvis w IV con IMPRESSION: Severe diffuse enter ic distention without a focal area of obstruction. Prominence to the po rtal triads possibly reflective of edema was noted on a recent ultrasou nd as well. Fleischner guideline s were followed. Dictated By: Manny Ortiz MD Signed By: <Electron gaetano signed by Manny Ortiz MD in OV> 03/30/24 1052 DD/ 1014 TD/TT: Coppersmith Apprentice: XR chest 1V Reviewed date:03/31/2024 04:43:32 PM Interpretation: Performing Lab: Notes/Report: [address] [address] XRay Report Signed Patient: Javi Smith MR#: [id number] 8 : 1985 Acct:[id number] Age/Sex: 39 / M ADM Date: 03/28/24 Loc: [facility] 474-[address]: Tay Anthony MD Ordering Physician: Tay Anthony MD Date of Service: 03/30/24 Procedure(s): XR chest 1V Accession Number(s): [id number] cc: Alfonso Sierra MD; Tay Anthony MD [...] signed by Rosana Ramirez MD in OV> 03/30/24 2101 DD/ 1850 TD/TT: Coppersmith Apprentice: [address] [place] [address] XRay Report Signed Patient: Javi Smith MR#: [id number] 8 : 1985 Acct:[id number] Age/Sex: 39 / M ADM Date: 03/28/24 Loc: [facility] 474-[address]: Bang Anthony MD Ordering Physician: Tay Anthony MD Date of Service: 03/30/24 Procedure(s): XR chest 1V Accession Number(s): [id number] cc: Alfonso Sierra MD; Tay Anthony MD EXAMINATION: XR chest 1V CLINICAL INFORMATION: Reason for Exam hypoxia COMPARISON: 03/28/2024 TECHNIQUE: Single po rtable frontal view. Tubes and lines: None Lungs and pleura: Diminished lung volume, pulmonary vascular congestion and diffuse increase d interstitial opacification possibly interstitial edema. Blunting of costophrenic angle suggesting small subpulmonic pleural effusions. Heart and mediastinu m: Cardiac silhouette is enlarged cardiomegaly unchanged.. Bones/soft tissue: D ilated bowel loops under the diaphragm, this has been described on e CT abdomen same day. X R/XR chest 1V IMPRESSION: 1. Cardiomegaly, pul monary vascular congestion, diffuse increased interstitial opacifi cation possibly mild interstitial edema. 2. Small subpulmonic pleural effusions. Dictated By: Rosana Ramirez MD Signed By: <Electron ically signed by Rosana Ramirez MD in OV> 03/30/242100 DD/ 1850 TD/TT: [employer] Vice President ist: HS Complete Blood Count no Diff Reviewed date:03/31/2024 04:43:32 PM Interpretation: Performing Lab:[facility], [address] [place] [phone] Notes/Report: White Blood Count 15.1 4.8-10.8 X10*3/uL [...] ff Reviewed date:03/31/2024 04:43:32 PM Interpretation: Performing Lab:[facility], [address] [place] [phone] Notes/Report: White Blood Count 14.0 4.8-10.8 X10*3/uL [...] 0.0 0.0-0.2 /100WBC Neutrophils Absolute Auto 12.0 2.0-8. 3 x10*3/uL Imm Gran Abs Auto 0.06 0.00-0.03 X10*3/uL Lymphocytes Absolute Auto 0.9 1.2-4. 9 X10*3/uL Monocytes Absolute Auto 1.1 0.1-1.2 X10*3/uL Eosinophils Absolute Auto 0.0 0.0-0. 4 X10*3/uL Basophils Absolute Auto 0.0 0.0-0.2 X10*3/uL NRBC Abs Auto 0.000 0.0-0.012 X10*3/uL Comprehensive Met. Panel Reviewed date:03/31/2024 04:43:32 PM Interpretation: Performing Lab:[facility], [address] [place] [phone] Notes/Report: Sodium 141 135-145 mmol/L Potassium 4.3 [...] Glomerular Filt Rate > 60 NOTE: For -Stateless individuals, multiply the result by 1.210. Chronic [...] Panel Reviewed date:03/31/2024 04:43:32 PM Interpretation: Performing Lab:[facility], [address] [place] [phone] Notes/Report: Bilirubin Total 2.0 0.0-1.0 mg/dL Bilirubin Direct 0.7 0.0-0.5 mg/dL Aspartate Amino Transferase 63 5-37 U/L Alanine Aminotransferase 80 0-40 U/L Total Protein 8.1 6.5-8.0 g/dL Albumin Level 4.2 3.5-5.0 g/dL Alkaline Phosphatase 337 39-117 U/L Basic Metabolic Panel Reviewed date:03/31/2024 04:43:32 PM Interpretation: Performing Lab:[facility], [address] [place] [phone] Notes/Report: Sodium 143 135-145 mmol/L Potassium 4.4 [...] Glomerular Filt Rate > 60 NOTE: For -Stateless individuals, multiply the result by 1.210. Chronic Kidney Disease: Estimated GFR < 60 mL/min/1.73m2 Severe Kidney Disease: Estimated GFR < 15 mL/min/1.73m2 Glucose Random 129 60-115 mg/dL Calcium 10.5 8.4-10.2 mg/dL Basic Metabolic Panel Fastin g Reviewed date:03/31/2024 04:43:32 PM Interpretation: Performing Lab:[facility], [address] [place] [phone] Notes/Report: Sodium 141 135-145 mmol/L Potassium 4.5 [...] Glomerular Filt Rate > 60 NOTE: For -Stateless individuals, multiply the result by 1.210. Chronic Kidney Disease: Estimated GFR < 60 mL/min/1.73m2 Severe Kidney Disease: Estimated GFR < 15 mL/min/1.73m2 Glucose Fasting 147 60-99 mg/dL A fasting glucose of 126 mg/dl or greater on more than one occasion is considered diagnostic of diabetes. Calcium 10.7 8.4-10.2 mg/dL Lactic Acid Reviewed date:03/31/2024 04:43:32 PM Interpretation: Performing Lab:[facility], [address] [place] [phone] Notes/Report: Lactic Acid 2.7 0.5-2.0 mmol/L Critical [LACTA] sent by a secure message and confirmed by (ARACELI REYNOSO AND CORI REGAN [place] [id number] @[id number]) Tech:[email or web address] Phosphorus Reviewed date:03/31/2024 04:43:32 PM Interpretation: Performing Lab:[facility], [address] [place] [phone] Notes/Report: Phosphorus 4.1 2.7-4.5 mg/dL Magnesium Reviewed date:03/31/2024 04:43:32 PM Interpretation: Performing Lab:[facility], [address] [place] [phone] Notes/Report: Magnesium 2.4 1.6-2.6 mg/dL Ammonia Reviewed date:03/31/2024 04:43:32 PM Interpretation: Performing Lab:[facility], [address] [place] [phone] Notes/Report: Ammonia 82 13-55 umol/L Troponin-I High Sensitivity Reviewed date:03/31/2024 04:43:32 PM Interpretation: Performing Lab:[address] [phone] Notes/Report: Troponin-I High Sensitivity 59.9 <3.5-35.0 ng/L The Vega high sensitivity Troponin-I results should be used in conjunction with other diagnostic information such as ECG, clinical observations and information, and patient symptoms to aid in the diagnosis of [place]. B Type Natriuretic Peptide Reviewed date:03/31/2024 04:43:32 PM Interpretation: Performing Lab:[facility], [address] [place] [phone] Notes/Report: B Type Natriuretic Peptide 224 <100 pg/mL For those patients who are being treated with Natrecor (nesiritide, recombinant BNP), BNP testing should be performed at least two hours post treatment in order to ensure that only endogenous levels of BNP are detected. TSH reflex Free T4 Reviewed date:03/31/2024 04:43:32 PM Interpretation: Performing Lab:[facility], [address] [place] [phone] Notes/Report: TSH reflex Free T4 1.47 0.32-4.0 uIU/mL Vancomycin Random Reviewed date:03/31/2024 04:43:32 PM Interpretation: Performing Lab:[facility], [address] [place] [phone] Notes/Report: Vancomycin Random 15.9 15-20 mcg/mL Lactic Acid-LAB USE ONLY Reviewed date:03/31/2024 04:43:32 PM Interpretation: Performing Lab:[facility], [address] [place] [phone] Notes/Report: Lactic Acid-LAB USE ONLY 2.3 0.5-2.0 mmol/L Critical[LACTA] sent by a secure message and confirmed by (DR.JEISA BYNUM [facility] ON [id number] @ 794) Tech:VYASRID Venous Blood Gases - POC Reviewed date:03/31/2024 04:43:32 PM Interpretation: Performing Lab:[facility], [address] [place] [phone] Notes/Report: VBG pH 7.40 7.32-7.43 METER #: [id number] additional_comment: Nabil vital VBG pCO2 42 METER #: [id number] additional_comment: Nabil vital VBG pO2 46 METER #: [id number] additional_comment: Nabil vital G Base Excess 1.8 METER #: [id number] additional_comment: Nabil vital VBG HCO3 26 22-26 mmol/L METER #: [id number] additional_comment: Nabil vital G O2 % Saturation 76.0 METER #: [id number] additional_comment: Nabil vital Lactic Acid-LAB USE ONLY Reviewed date:03/31/2024 04:43:32 PM Interpretation: Performing Lab:[facility], [address] [place] [phone] Notes/Report: Lactic Acid-LAB USE ONLY 2.2 0.5-2.0 mmol/L Critical [LACTIC] sent by a secure message and confirmed by (Dr. Thomas, 03/31/24 0734) Tech: ZOHRAENSA Cancel Lactic Acid Reviewed date:03/31/2024 04:43:32 PM Interpretation: Performing Lab:[facility], [address] [place] [phone] Notes/Report: Cancel Lactic Acid Canceled XR KUB Reviewed date:03/31/2024 04:43:32 PM Interpretation: Performing Lab: Notes/Report: [address] [address] XRay Report Signed Patient: Javi Smith MR#: [id number] 8 : 1985 Acct:[id number] Age/Sex: 39 / M ADM Date: 03/28/24 Loc: [facility] 474-[address]: Jose Thomas MD Ordering Physician: Jose Thomas MD Date of Service: 03/31/24 Procedure(s): XR KUB Accession Number(s): [id number] cc: Jose Thomas MD; Alfonso Sierra MD EXAMINATION: XR ABDOMEN KUB CLINICAL INDICATION: Follow-up obstruction versus ileus COMPARISON: Wire Taper film from CT dated 03/30/2024 TECHNIQUE: AP [...] in OV> 03/31/24 1340 DD/ 1109 TD/TT: Coppersmith Apprentice: ADDISON [address] [place] [address] XRay Report Signed Patient: Javi Smith MR#: [id number] 8 : 1985 Acct:[id number] Age/Sex: 39 / M ADM Date: 03/28/24 Loc: [facility] 474-[address]: Jose Thomas MD Ordering Physician: Jose Thomas MD Date of Service: 03/31/24 Procedure(s): XR KUB Accession Number(s): [id number] cc: Lary Thomas MD; Alfonso Sierra MD EXAMINATION: XR ABDOMEN KUB CLINICAL INDICATION: Follow-up obstructio n versus ileus COMPARISON: Wire Taper film from CT d ated 03/30/2024 TECHNIQUE: AP view of the abdomen. FINDINGS: Continued bowel dilatation. This is not felt to be significantly changed from previou s. There is felt to be stool in the rectosigmoid. There is felt to be air outlining both small and large bowel. Bilateral basilar estefani ng opacities are also noted. X R/XR KUB IMPRESSION: Continued bowel distention. Not significantly changed from previous. Differential to incl ude ileus versus obstruction. Dictated By: Oswaldo Kwan MD Signed By: <Hemant salter signed by Oswaldo Kwan MD in OV> 03/31/24 1340 DD/ 1109 TD/TT: [employer] Vice President ist: ADDISON Magnesium Reviewed date:03/31/2024 04:43:32 PM Interpretation: Performing Lab:[facility], [address] [place] [phone] Notes/Report: Magnesium 2.5 1.6-2.6 mg/dL Complete Blood Count Auto Di ff Reviewed date:04/01/2024 07:12:33 PM Interpretation: Performing Lab:[facility], [address] [place] [phone] Notes/Report: White Blood Count 12.1 4.8-10.8 X10*3/uL [...] 0.0 0.0-0.2 /100WBC Neutrophils Absolute Auto 9.8 2.0-8. 3 x10*3/uL Imm Gran Abs Auto 0.02 0.00-0.03 X10*3/uL Lymphocytes Absolute Auto 1.0 1.2-4. 9 X10*3/uL Monocytes Absolute Auto 1.1 0.1-1.2 X10*3/uL Eosinophils Absolute Auto 0.0 0.0-0. 4 X10*3/uL Basophils Absolute Auto 0.0 0.0-0.2 X10*3/uL NRBC Abs Auto 0.000 0.0-0.012 X10*3/uL Comprehensive Met. Panel Reviewed date:04/01/2024 07:12:33 PM Interpretation: Performing Lab:[facility], [address] [place] [phone] Notes/Report: Sodium 146 135-145 mmol/L Potassium 3.9 [...] Glomerular Filt Rate > 60 NOTE: For -Stateless individuals, multiply the result by 1.210. Chronic [...] Magnesium Reviewed date:04/01/2024 04:52:53 PM Interpretation: Performing Lab:[facility], [address] [place] [phone] Notes/Report: Magnesium 2.3 1.6-2.6 mg/dL Complete Blood Count no Diff Reviewed date:04/01/2024 04:51:40 PM Interpretation: Performing Lab:[facility], [address] [place] [phone] Notes/Report: White Blood Count 10.4 4.8-10.8 X10*3/uL [...] gy Reviewed date:04/01/2024 12:31:19 PM Interpretation: Performing Lab:[facility], [address] [place] [phone] Notes/Report: Hold Lav - Possible Hematology SEE NOTE Specimen will be held untested for 8 hours. Call Hematology if testing is desired. Prothrombin Time INR Reviewed date:04/01/2024 07:12:33 PM Interpretation: Performing Lab:[facility], [address] [place] [phone] Notes/Report: Prothrombin Time 14.7 11.1-13.3 SEC INTERNATIONAL [...] Drip Reviewed date:04/01/2024 07:12:33 PM Interpretation: Performing Lab:[facility], [address] [place] [phone] Notes/Report: PTT Heparin Drip 29.5 53-77.9 SEC For information regarding the monitoring of heparin therapy, please refer to Pharmacy. Basic Metabolic Panel Reviewed date:04/01/2024 04:57:03 PM Interpretation: Performing Lab:[facility], [address] [place] [phone] Notes/Report: Sodium 146 135-145 mmol/L Potassium 3.8 [...] Glomerular Filt Rate > 60 NOTE: For -Stateless individuals, multiply the result by 1.210. Chronic Kidney Disease: Estimated GFR < 60 mL/min/1.73m2 Severe Kidney Disease: Estimated GFR < 15 mL/min/1.73m2 Glucose Random 133 60-115 mg/dL Calcium 9.5 8.4-10.2 mg/dL Creatinine Reviewed date:04/01/2024 04:50:56 PM Interpretation: Performing Lab:[facility], [address] [place] [phone] Notes/Report: Creatinine 0.86 0.5-1.4 mg/dL Creatinine Clr Calc Pharmacy 98.4 eGFR (calculated from the MDRD study equation) and eCrCl (calculated from the Cockcroft-Gault equation) are based on different parameters and may not yield comparable results. If eCrCl result is absurd, please check patient's height/weight. Estimated Glomerular Filt Rate > 60 NOTE: For -Stateless individuals, multiply the result by 1.210. Chronic Kidney Disease: Estimated GFR < 60 mL/min/1.73m2 Severe Kidney Disease: Estimated GFR < 15 mL/min/1.73m2 Troponin-I High Sensitivity Reviewed date:04/01/2024 07:12:33 PM Interpretation: Performing Lab:[address] [phone] Notes/Report: Troponin-I High Sensitivity 37.4 <3.5-35.0 ng/L The Vega high sensitivity Troponin-I results should be used in conjunction with other diagnostic information such as ECG, clinical observations and information, and patient symptoms to aid in the diagnosis of [place]. B Type Natriuretic Peptide Reviewed date:04/01/2024 07:12:33 PM Interpretation: Performing Lab:[facility], [address] [place] [phone] Notes/Report: B Type Natriuretic Peptide 83 <100 pg/mL For those patients who are being treated with Natrecor (nesiritide, recombinant BNP), BNP testing should be performed at least two hours post treatment in order to ensure that only endogenous levels of BNP are detected. Vancomycin Trough Reviewed date:04/01/2024 07:12:33 PM Interpretation: Performing Lab:[address] [phone] Notes/Report: Trough level should be drawn prior to dose number: 2hr before dose @2000 on 04/01 Vancomycin Trough 10.5 10.0-20.0 mcg/mL Arterial Blood Gases - POC Reviewed date:04/01/2024 01:48:15 PM Interpretation: Performing Lab:[facility], [address] [place] [phone] Notes/Report: ABG pH 7.46 7.35-7.45 METER #: [id number] additional_comment: Cbroncarr ctrbb abuhas ABG pCO2 35 32-45 mmHg METER #: [id number] additional_comment: Cbroncarr ctrbb abuhas ABG pO2 52 83-108 mmHg METER #: [id number] additional_comment: Cbroncarr ctrbb abuhas ABG Base Excess 2.7 METER #: [id number] additional_comment: Cbroncarr ctrbb abuhas ABG HCO3 26 22-26 mmol/L METER #: [id number] additional_comment: Cbroncarr ctrbb abuhas ABG O2 % Saturation 81.0 METER #: [id number] additional_comment: Cbroncarr ctrbb abuhas D Dimer High Sensitivity Reviewed date:04/01/2024 12:36:11 PM Interpretation: Performing Lab:[facility], [address] [place] [phone] Notes/Report: D Dimer High Sensitivity 73495 D-DIMER HS REFERENCE RANGE Note: Our assay reports D-Dimer Units (D-DU). The cut-off value for venous thromboembolic (VTE) disease is 230 ng/mL. This value has a very high negative predictive value when the patient has a low to moderate clinical probability of VTE. The upper limit of normal is 243 ng/mL. Hold Green Gel Reviewed date:04/01/2024 12:31:29 PM Interpretation: Performing Lab:[facility], [address] [place] [phone] Notes/Report: Hold Green Gel See Note Specimen held untested for 24 hours; Call to request Chemistry testing. CT angio chest PE protocol Reviewed date:04/02/2024 12:30:33 PM Interpretation: Performing Lab: Notes/Report: [address] [place] [address] CT Scan Report Signed with Addenda Patient: Javi Smith MR#: [id number] 8 : 1985 Acct:[id number] Age/Sex: 39 / M ADM Date: 03/28/24 Loc: [facility] 252-[address]: Delano Rhodes MD Ordering Physician: Delano Rhodes MD Date of Service: 04/01/24 Procedure(s): CT angio chest PE protocol Accession Number(s): [id number] cc: Alfonso Sierra MD; Delano Rhodes MD [...] in OV> 04/01/24 1547 DD/ 1315 TD/TT: Coppersmith Apprentice: [address] [address] [address] Scan Report Signed with Addenda Patient: Javi Smith MR#: [id number] 8 : 1985 Acct:[id number] Age/Sex: 39 / M ADM Date: 03/28/24 Loc: [facility] 252-[address]: Delano Rhodes MD Ordering Physician: Delano Rhodes MD Date of Service: 04/01/24 Procedure(s): CT ang io chest PE protocol Accession Number(s): [id number] cc: Alfonso Sierra MD; Delano Rhodes MD ADDENDUM Results Acknowledgement: KEARA Daniels (04/01/2024 04:55:00): Results communicated with Dr. Rhodes at 4:37 PM. Addendum Dictated By : Peggy Sun MD Addendum Signed By: <Electronically signed by Peggy Sun MD in OV> 04/02/24 0932 Addendum Cosigned By: DD/ TD/TT: / EXAMINATION: CT abdomen pelvis w IV con, CT angio chest PE protocol CLINICAL INFORMATION: Reason for Exam abdo piotr distension, ? Obstruction COMPARISON: No pertinent prior s tudies are available for comparison. TECHNIQUE: Prior to contrast administration, noncontrast localization images were obtained. Subsequent ly, multidetector volumetric imaging was performed from the thoracic in let to below the pubic symphysis following the administration of 80 mL Omnipaque 350 intravenous contrast. No contrast reaction reported Sagittal, coronal, a nd MIP oblique sagittal reformatted images were obtained on the CT workstation, uploaded to PACS, and reviewed. This CT examination was performed using dose optimization techniques as appropriate, various ly including the following: * Automated exposure control * Adjustment of mA a nd/or kV according to patient size (this includes techniques or standa rdized protocols for targeted exams where dose is matched to indication/reason for exam; i.e. extremities or head) Use of iterative reconstruction technique Total exam dose-lon th product 654 mGy-cm FINDINGS: QUALITY OF STUDY/CON TRAST BOLUS: Satisfactory. PULMONARY ARTERIES: There are multiple pulmonary emboli seen through the main right and l eft pulmonary arteries with partial occlusion of the right lower lobe pulmonary artery with saddle embolus THORACIC AORTA: No aneurysm or dissection. LUNG: There are bila teral consolidations more prominent in the dependent portion of the right and left lung. There is patchy, groundglass opacity airspace disease seen in the right lower lobe. Central airways are patent. PLEURA: There is ple ural thickening but no pleural effusions seen. MEDIASTINUM: Normal heart size. No pericardial effusion. No hilar or mediastinal lymphadenopathy. No evidence of septal bowing or right heart strain. CHEST WALL/AXILLA: N o axillary or internal mammary lymphadenopathy. ABDOMEN/PELVIS: LIVER, GALLBLADDER, BILIARY TREE: The liver is normal in size, shape, and attenuation. No focal hepatic lesion or biliary ductal dilatation is present. The gallbladder is unremarkable with no evidence of radiopaque gallstone s, gallbladder wall thickening, or pericholecystic inflammatory changes. PANCREAS: Normal; no mass or surrounding fluid. SPLEEN: Normal size. No focal lesion. ADRENAL GLANDS: Norm al; no mass. KIDNEYS AND URETERS: There are a few small bilateral renal cysts but no hydroureteronephrosi s or masses. BLADDER: No focal ma ss or wall thickening seen. No bladder calculi. PELVIC VISCERA: Unremarkable. GASTROINTESTINAL TRA CT: Loops of small bowel are diffusely dilated consistent with smal l bowel obstruction. There is a transition seen in the right lower quad rant, images 46-50 series 3. Loops of colon are distended by large amount of feces. The appendix is not identified. PERITONEAL SPACE: No free air or free fluid identified. ABDOMINAL WALL: Ther e are postsurgical changes with mesh markers are seen in the lower abdomen. LYMPHOVASCULAR STRUCTURES: Lymph nodes: Normal. Vascular: The aorta is normal in caliber. OSSEOUS STRUCTURES: There is diffuse osteopenia with compression deformities of L5-L4 L3 and status post kyphoplasty of T11 and T10 vertebral bodies. There is compression deformit y of T8 and 27. C T/CT angio chest PE protocol IMPRESSION: 1. Extensive bilater al pulmonary emboli with saddle embolus in the right and left main and lower lobe pulmonary artery. 2. Bilateral airspac e disease. 3. Small bowel obstr uction with transition in the right lower quadrant. 4. Constipation. 5. Multiple compress ion deformities in thoracic and lumbar spine VTE: positive. Dictated By: Leann Sun MD Signed By: <Electron icablanka signed by Peggy Sun MD in OV> 04/01/24 1547 DD/ 131 TD/TT: Coppersmith Apprentice: CT abdomen pelvis w con Reviewed date:04/02/2024 12:30:33 PM Interpretation: Performing Lab: Notes/Report: [address] [address] [address] Scan Report Signed with Addenda Patient: Javi Smith MR#: [id number] 8 : 1985 Acct:[id number] Age/Sex: 39 / M ADM Date: 03/28/24 Loc: [facility] 252-[address]: Delano Rhodes MD Ordering Physician: Delano Rhodes MD Date of Service: 04/01/24 Procedure(s): CT abdomen pelvis w IV con Accession Number(s): [id number] cc: Alfonso Sierra MD; Delano Rhodes MD [...] in OV> 04/01/24 1547 DD/ 1315 TD/TT: Coppersmith Apprentice: [address] [address] [address] Scan Report Signed with Addenda Patient: Javi Smith MR#: [id number] 8 : 1985 Acct:[id number] Age/Sex: 39 / M ADM Date: 03/28/24 Loc: [facility] 252-[address]: Delano Rhodes MD Ordering Physician: Delano Rhodes MD Date of Service: 04/01/24 Procedure(s): CT abd omen pelvis w IV con Accession Number(s): [id number] cc: Alfonso Sierra MD; Delano Rhodes MD ADDENDUM Results Acknowledgement: KEARA Daniels (04/01/2024 04:55:00): Results communicated with Dr. Rhodes at 4:37 PM. Addendum Dictated By : Peggy Sun MD Addendum Signed By: <Electronically signed by Peggy Sun MD in OV> 04/02/24 0932 Addendum Cosigned By: DD/ TD/TT: / EXAMINATION: CT abdomen pelvis w IV con, CT angio chest PE protocol CLINICAL INFORMATION: Reason for Exam abdo piotr distension, ? Obstruction COMPARISON: No pertinent prior s tudies are available for comparison. TECHNIQUE: Prior to contrast administration, noncontrast localization images were obtained. Subsequent ly, multidetector volumetric imaging was performed from the thoracic in let to below the pubic symphysis following the administration of 80 mL Omnipaque 350 intravenous contrast. No contrast reaction reported Sagittal, coronal, a nd MIP oblique sagittal reformatted images were obtained on the CT workstation, uploaded to PACS, and reviewed. This CT examination was performed using dose optimization techniques as appropriate, various ly including the following: * Automated exposure control * Adjustment of mA a nd/or kV according to patient size (this includes techniques or standa rdized protocols for targeted exams where dose is matched to indication/reason for exam; i.e. extremities or head) Use of iterative reconstruction technique Total exam dose-lon th product 654 mGy-cm FINDINGS: QUALITY OF STUDY/CON TRAST BOLUS: Satisfactory. PULMONARY ARTERIES: There are multiple pulmonary emboli seen through the main right and l eft pulmonary arteries with partial occlusion of the right lower lobe pulmonary artery with saddle embolus THORACIC AORTA: No aneurysm or dissection. LUNG: There are bila teral consolidations more prominent in the dependent portion of the right and left lung. There is patchy, groundglass opacity airspace disease seen in the right lower lobe. Central airways are patent. PLEURA: There is ple ural thickening but no pleural effusions seen. MEDIASTINUM: Normal heart size. No pericardial effusion. No hilar or mediastinal lymphadenopathy. No evidence of septal bowing or right heart strain. CHEST WALL/AXILLA: N o axillary or internal mammary lymphadenopathy. ABDOMEN/PELVIS: LIVER, GALLBLADDER, BILIARY TREE: The liver is normal in size, shape, and attenuation. No focal hepatic lesion or biliary ductal dilatation is present. The gallbladder is unremarkable with no evidence of radiopaque gallstone s, gallbladder wall thickening, or pericholecystic inflammatory changes. PANCREAS: Normal; no mass or surrounding fluid. SPLEEN: Normal size. No focal lesion. ADRENAL GLANDS: Norm al; no mass. KIDNEYS AND URETERS: There are a few small bilateral renal cysts but no hydroureteronephrosi s or masses. BLADDER: No focal ma ss or wall thickening seen. No bladder calculi. PELVIC VISCERA: Unremarkable. GASTROINTESTINAL TRA CT: Loops of small bowel are diffusely dilated consistent with smal l bowel obstruction. There is a transition seen in the right lower quad rant, images 46-50 series 3. Loops of colon are distended by large amount of feces. The appendix is not identified. PERITONEAL SPACE: No free air or free fluid identified. ABDOMINAL WALL: Ther e are postsurgical changes with mesh markers are seen in the lower abdomen. LYMPHOVASCULAR STRUCTURES: Lymph nodes: Normal. Vascular: The aorta is normal in caliber. OSSEOUS STRUCTURES: There is diffuse osteopenia with compression deformities of L5-L4 L3 and status post kyphoplasty of T11 and T10 vertebral bodies. There is compression deformit y of T8 and 27. C T/CT abdomen pelvis w IV con IMPRESSION: 1. Extensive bilater al pulmonary emboli with saddle embolus in the right and left main and lower lobe pulmonary artery. 2. Bilateral airspac e disease. 3. Small bowel obstr uction with transition in the right lower quadrant. 4. Constipation. 5. Multiple compress ion deformities in thoracic and lumbar spine VTE: positive. Dictated By: Leann Sun MD Signed By: <Electron icablanka signed by Peggy Sun MD in OV> 04/01/24 1547 DD/ 1315 TD/TT: Coppersmith Apprentice: US venous duplex LE BI Reviewed date:04/01/2024 07:12:33 PM Interpretation: Performing Lab: Notes/Report: [address] [address] Ultrasound Report Signed Patient: Javi Smith MR#: [id number] 8 : 1985 Acct:[id number] Age/Sex: 39 / M ADM Date: 03/28/24 Loc: [facility] 252-[address]: Delano Rhodes MD Ordering Physician: Delano Rhodes MD Date of Service: 04/01/24 Procedure(s): US venous duplex [facility] Accession Number(s): [id number] cc: Alfonso Sierra MD; Delano Rhodes MD [...] of direct communication. Dictated By: Marcus Salgado Jr DO Signed By: <Electronically signed by Marcus Salgado Jr, DO in OV> 04/01/24 1737 DD/ 1701 TD/TT: Coppersmith Apprentice: [place] [address] Ultrasound Report Signed Patient: Javi Smith MR#: [id number] 8 : 1985 Acct:[id number] Age/Sex: 39 / M ADM Date: 03/28/24 Loc: [facility] 252-[address]: Delano Rhodes MD Ordering Physician: Delano Rhodes MD Date of Service: 04/01/24 Procedure(s): US anton ous duplex LE BI Accession Number(s): [id number] cc: Alfonso Sierra MD; Delano Rhodes MD EXAMINATION: US VENOUS ULTRASOUND WITH DOPPLER LOWER EXTREMITY, BILATERAL CLINICAL INFORMATION: Pulmonary embolism. COMPARISON: CTA chest dated 04/01/2024. TECHNIQUE: Ultrasound of the de ep veins is performed from the hip to the calf with compression sonograp hy and color and pulse Doppler assessment. Spectral analysis with color- flow imaging is performed. FINDINGS: RIGHT: There is normal veno us compression and respiratory variation and augmented flow. The visualized common femoral vein, superficial femoral vein, profunda femor al vein, popliteal vein, and the trifurcation region shows no evid ence of deep venous thrombosis. There is no significant poplitea l fossa cyst. LEFT: Occlusive thrombus e xtends from the mid aspect of the left femoral vein to the proximal aspe ct of the posterior tibial vein, inclusive of the popliteal vein. Beny ining left lower extremity venous structures are normal in appearance . There is no significant popliteal fossa cyst. U S/US venous duplex LE BI IMPRESSION: No DVT demonstrated in the right lower extremity. Occlusive thrombus e xtends from the mid aspect of the left femoral vein to the proximal aspe ct of the posterior tibial vein, inclusive of the popliteal vein. This critical result was discussed with Dr Rhodes at 5:34 PM on 04/01/2024 and it wa s ascertained that the content and urgency of the report was understoo d at the time of direct communication. Dictated By: Eddy Salgado Jr, DO Signed By: <Electronically signed by Marcus Salgado Jr, DO in OV> 04/01/24 1735 DD/ 1701 TD/TT: [employer] Vice President ist: CB XR chest 1V Reviewed date:04/01/2024 12:34:53 PM Interpretation: Performing Lab: Notes/Report: [address] [address] XRay Report Signed Patient: Javi Smith MR#: [id number] 8 : 1985 Acct:[id number] Age/Sex: 39 / M ADM Date: 03/28/24 Loc: [facility] 252-[address]: Delano Rhodes MD Ordering Physician: Jose Thomas MD Date of Service: 04/01/24 Procedure(s): XR chest 1V Accession Number(s): [id number] cc: Jose Thomas MD; Alfonso Sierra MD [...] in OV> 04/01/24 1123 DD/ 0928 TD/TT: Coppersmith Apprentice: [address] [place] [address] XRay Report Signed Patient: Javi Smith MR#: [id number] 8 : 1985 Acct:[id number] Age/Sex: 39 / M ADM Date: 03/28/24 Loc: .ICU 252-[address]: Delano Rhodes MD Ordering Physician: Jose Thomas MD Date of Service: 04/01/24 Procedure(s): XR chest 1V Accession Number(s): [id number] cc: Lary Thomas MD; Alfonso Sierra MD EXAMINATION: XR CHEST CLINICAL INFORMATION: Hypoxia COMPARISON: 03/30/2024 TECHNIQUE: Frontal view of the chest was obtained. FINDINGS: There is low lung vo lume bilaterally unchanged since previous study with by basilar atelectasis and left lower lobe airspace disease with air bronchogram. Cardiomediastinal silhouette is unremarkable X R/XR chest 1V IMPRESSION: Bibasilar airspace disease. Low lung volume. Dictated By: Leann Sun MD Signed By: <Hemant salter signed by Peggy Sun MD in OV> 04/01/24 1123 DD/ 0928 TD/TT: Coppersmith Apprentice: PTT Heparin Drip Reviewed date:04/02/2024 12:30:33 PM Interpretation: Performing Lab:[facility], [address] [place] [address] Notes/Report: PTT Heparin Drip 39.4 53-77.9 SEC For information regarding the monitoring of heparin therapy, please refer to Pharmacy. Complete Blood Count Auto Di ff Reviewed date:04/02/2024 12:30:33 PM Interpretation: Performing Lab:[facility], [address] [place] [address] Notes/Report: White Blood Count 10.2 4.8-10.8 X10*3/uL [...] 0.0 0.0-0.2 /100WBC Neutrophils Absolute Auto 8.4 2.0-8. 3 x10*3/uL Imm Gran Abs Auto 0.04 0.00-0.03 X10*3/uL Lymphocytes Absolute Auto 0.7 1.2-4. 9 X10*3/uL Monocytes Absolute Auto 1.1 0.1-1.2 X10*3/uL Eosinophils Absolute Auto 0.0 0.0-0. 4 X10*3/uL Basophils Absolute Auto 0.0 0.0-0.2 X10*3/uL NRBC Abs Auto 0.000 0.0-0.012 X10*3/uL Prothrombin Time INR Reviewed date:04/02/2024 12:30:33 PM Interpretation: Performing Lab:[address] [address] Notes/Report: Prothrombin Time 17.1 11.1-13.3 SEC INTERNATIONAL [...] Drip Reviewed date:04/02/2024 12:30:33 PM Interpretation: Performing Lab:[address] [place] [address] Notes/Report: PTT Heparin Drip 42.5 53-77.9 SEC For information regarding the monitoring of heparin therapy, please refer to Pharmacy. Comprehensive Met. Panel Reviewed date:04/02/2024 12:30:33 PM Interpretation: Performing Lab:[facility], [address] [place] [phone] Notes/Report: Sodium 150 135-145 mmol/L Potassium 3.7 [...] Glomerular Filt Rate > 60 NOTE: For -Stateless individuals, multiply the result by 1.210. Chronic [...] Panel Reviewed date:04/04/2024 06:08:27 PM Interpretation: Performing Lab:[facility], [address] [place] [address] Notes/Report: Sodium 145 135-145 mmol/L Potassium 3.4 [...] Glomerular Filt Rate > 60 NOTE: For -Stateless individuals, multiply the result by 1.210. Chronic Kidney Disease: Estimated GFR < 60 mL/min/1.73m2 Severe Kidney Disease: Estimated GFR < 15 mL/min/1.73m2 Glucose Random 118 60-115 mg/dL Calcium 8.6 8.4-10.2 mg/dL Phosphorus Reviewed date:04/02/2024 12:30:33 PM Interpretation: Performing Lab:[address] [address] Notes/Report: Phosphorus 3.1 2.7-4.5 mg/dL Magnesium Reviewed date:04/02/2024 12:30:33 PM Interpretation: Performing Lab:[facility], [address] [place] [address] Notes/Report: Magnesium 2.2 1.6-2.6 mg/dL Ammonia Reviewed date:04/02/2024 12:30:33 PM Interpretation: Performing Lab:[address] [address] Notes/Report: Ammonia 47 13-55 umol/L Slight Hemolysi s Venous Blood Gases - POC Reviewed date:04/02/2024 12:30:33 PM Interpretation: Performing Lab:[address] [address] Notes/Report: VBG pH 7.50 7.32-7.43 METER #: [id number] additional_comment: Nabil felibertolancedinora ctrbb henric VBG pCO2 31 METER #: [id number] additional_comment: Nabil daoeckdinora ctrbb henric VBG pO2 88 METER #: [id number] additional_comment: Nabil felibertolancedinora ctrbb henric VBG Base Excess 2.3 METER #: [id number] additional_comment: Nabil daolancedinora ctrbb henric VBG HCO3 24 22-26 mmol/L METER #: [id number] additional_comment: Nabil GOOD O2 % Saturation 98.0 METER #: [id number] additional_comment: Nabil loaiza XR KUB Reviewed date:04/04/2024 06:08:27 PM Interpretation: Performing Lab: Notes/Report: [address] [address] XRay Report Signed Patient: Javi Smith MR#: [id number] 8 : 1985 Acct:[id number] Age/Sex: 39 / M ADM Date: 03/28/24 Loc: [facility] 477-[address]: Jose Thomas MD Ordering Physician: Casimiro Bradley MD Date of Service: 04/02/24 Procedure(s): XR KUB Accession Number(s): [id number] cc: Alfonso Sierra MD; Casimiro Bardley MD EXAMINATION: XR ABDOMEN KUB CLINICAL INDICATION: [...] in OV> 04/02/24 1515 DD/ 0738 TD/TT: Coppersmith Apprentice: RHIANNA [address] [address] XRay Report Signed Patient: Javi Smith MR#: [id number] 8 : 1985 Acct:[id number] Age/Sex: 39 / M ADM Date: 03/28/24 Loc: [facility] 477-[address]: Jose Thomas MD Ordering Physician: Casimiro Bradley MD Date of Service: 04/02/24 Procedure(s): XR KUB Accession Number(s): [id number] cc: Alfonso Sierra MD; Casimiro Bradley MD EXAMINATION: XR ABDOMEN KUB CLINICAL INDICATION: Abdominal distention COMPARISON: Abdomen radiograph M ay 2023. The scan abdomen pelvis April 01, 2024 TECHNIQUE: AP view of the abdomen. FINDINGS: There is still a lar ge volume of gas in the colon but the volume of gas has decreased since prior CAT scan April 01, 2024. Bowel pattern is nonobstructive. No significant formed stool now evident in the abdomen. Surgical coils right lung base X R/XR KUB IMPRESSION: Nonobstructive bowel pattern. Decreased volume of gas in the colon since prior CAT scan April 01, 2024. Dictated By: Isaak Degroot MD Signed By: <Hemant salter signed by Konstantin Degroot MD in OV> 04/02/24 1515 DD/ 0738 TD/TT: Global Consumer Sector Vice President ist: RHIANNA PTT Heparin Drip Reviewed date:04/02/2024 12:30:33 PM Interpretation: Performing Lab:[facility], [address] [place] [phone] Notes/Report: PTT Heparin Drip 54.6 53-77.9 SEC For information regarding the monitoring of heparin therapy, please refer to Pharmacy. PTT Heparin Drip Reviewed date:04/04/2024 06:08:27 PM Interpretation: Performing Lab:[facility], [address] [place] [phone] Notes/Report: Duplicate order. See CG28 PTT Heparin Drip 56.0 53-77.9 SEC For information regarding the monitoring of heparin therapy, please refer to Pharmacy. Complete Blood Count no Diff Reviewed date:04/04/2024 06:08:26 PM Interpretation: Performing Lab:[facility], [address] [place] [address] Notes/Report: White Blood Count 9.0 4.8-10.8 X10*3/uL [...] ff Reviewed date:04/04/2024 06:08:26 PM Interpretation: Performing Lab:[facility], [address] [place] [address] Notes/Report: White Blood Count 8.4 4.8-10.8 X10*3/uL [...] 0.0 0.0-0.2 /100WBC Neutrophils Absolute Auto 6.1 2.0-8. 3 x10*3/uL Imm Gran Abs Auto 0.03 0.00-0.03 X10*3/uL Lymphocytes Absolute Auto 1.3 1.2-4. 9 X10*3/uL Monocytes Absolute Auto 0.8 0.1-1.2 X10*3/uL Eosinophils Absolute Auto 0.2 0.0-0. 4 X10*3/uL Basophils Absolute Auto 0.0 0.0-0.2 X10*3/uL NRBC Abs Auto 0.000 0.0-0.012 X10*3/uL PTT Heparin Drip Reviewed date:04/04/2024 06:08:26 PM Interpretation: Performing Lab:[facility], [address] [place] [address] Notes/Report: PTT Heparin Drip 55.6 53-77.9 SEC For information regarding the monitoring of heparin therapy, please refer to Pharmacy. Comprehensive Met. Panel Reviewed date:04/04/2024 06:08:26 PM Interpretation: Performing Lab:[facility], [address] [place] [address] Notes/Report: Sodium 142 135-145 mmol/L Potassium 3.4 [...] Glomerular Filt Rate > 60 NOTE: For -Stateless individuals, multiply the result by 1.210. Chronic [...] Panel Reviewed date:04/04/2024 06:08:26 PM Interpretation: Performing Lab:[facility], [address] [place] [phone] Notes/Report: Sodium 141 135-145 mmol/L Potassium 3.1 [...] Glomerular Filt Rate > 60 NOTE: For -Stateless individuals, multiply the result by 1.210. Chronic Kidney Disease: Estimated GFR < 60 mL/min/1.73m2 Severe Kidney Disease: Estimated GFR < 15 mL/min/1.73m2 Glucose Random 102 60-115 mg/dL Calcium 9.0 8.4-10.2 mg/dL Phosphorus Reviewed date:04/04/2024 06:08:27 PM Interpretation: Performing Lab:[facility], [address] [place] [address] Notes/Report: Phosphorus 2.1 2.7-4.5 mg/dL Magnesium Reviewed date:04/04/2024 06:08:27 PM Interpretation: Performing Lab:[facility], [address] [place] [address] Notes/Report: Magnesium 2.0 1.6-2.6 mg/dL Venous Blood Gases - POC Reviewed date:04/04/2024 06:08:27 PM Interpretation: Performing Lab:[facility], [address] [place] [address] Notes/Report: VBG pH 7.48 7.32-7.43 METER #: [id number] additional_comment: CB RIVEMAR VBG pCO2 38 METER #: [id number] additional_comment: CB RIVEMAR VBG pO2 59 METER #: [id number] additional_comment: CB RIVEMAR VBG Base Excess 5.0 METER #: [id number] additional_comment: CB RIVEMAR VBG HCO3 28 22-26 mmol/L METER #: [id number] additional_comment: NABIL ROWLAND VBG O2 % Saturation 90.0 METER #: [id number] additional_comment: NABIL ROWLAND PTT Heparin Drip Reviewed date:04/04/2024 06:08:26 PM Interpretation: Performing Lab:[facility], [address] [place] [address] Notes/Report: PTT Heparin Drip 66.7 53-77.9 SEC For information regarding the monitoring of heparin therapy, please refer to Pharmacy. Complete Blood Count no Diff Reviewed date:04/05/2024 12:26:31 PM Interpretation: Performing Lab:[facility], [address] [place] [address] Notes/Report: White Blood Count 5.9 4.8-10.8 X10*3/uL [...] Drip Reviewed date:04/05/2024 10:43:20 AM Interpretation: Performing Lab:[facility], [address] [place] [address] Notes/Report: PTT Heparin Drip 70.0 53-77.9 SEC For information regarding the monitoring of heparin therapy, please refer to Pharmacy. Basic Metabolic Panel Reviewed date:04/05/2024 12:24:01 PM Interpretation: Performing Lab:[facility], [address] [place] [phone] Notes/Report: Sodium 139 135-145 mmol/L Potassium 3.5 [...] Glomerular Filt Rate > 60 NOTE: For -Stateless individuals, multiply the result by 1.210. Chronic Kidney Disease: Estimated GFR < 60 mL/min/1.73m2 Severe Kidney Disease: Estimated GFR < 15 mL/min/1.73m2 Glucose Random 99 60-115 mg/dL Calcium 9.1 8.4-10.2 mg/dL B Type Natriuretic Peptide Reviewed date:04/05/2024 10:49:37 AM Interpretation: Performing Lab:[address] [address] Notes/Report: B Type Natriuretic Peptide 115 <100 pg/mL For those patients who are being treated with Natrecor (nesiritide, recombinant BNP), BNP testing should be performed at least two hours post treatment in order to ensure that only endogenous levels of BNP are detected. Complete Blood Count no Diff Reviewed date:04/06/2024 12:02:17 PM Interpretation: Performing Lab:[address] [address] Notes/Report: White Blood Count 9.2 4.8-10.8 X10*3/uL [...] Panel Reviewed date:04/06/2024 12:01:45 PM Interpretation: Performing Lab:[facility], [address] [place] [address] Notes/Report: Sodium 140 135-145 mmol/L Potassium 3.9 [...] Glomerular Filt Rate > 60 NOTE: For -Stateless individuals, multiply the result by 1.210. Chronic Kidney Disease: Estimated GFR < 60 mL/min/1.73m2 Severe Kidney Disease: Estimated GFR < 15 mL/min/1.73m2 Glucose Random 102 60-115 mg/dL Calcium 9.2 8.4-10.2 mg/dL Complete Blood Count Auto Di ff Reviewed date:04/28/2024 07:56:49 PM Interpretation: Performing Lab:[facility], [address] [place] [address] Notes/Report: White Blood Count 12.5 4.8-10.8 X10*3/uL [...] 0.0 0.0-0.2 /100WBC Neutrophils Absolute Auto 10.5 2.0-8. 3 x10*3/uL Imm Gran Abs Auto 0.04 0.00-0.03 X10*3/uL Lymphocytes Absolute Auto 0.9 1.2-4. 9 X10*3/uL Monocytes Absolute Auto 1.0 0.1-1.2 X10*3/uL Eosinophils Absolute Auto 0.0 0.0-0. 4 X10*3/uL Basophils Absolute Auto 0.0 0.0-0.2 X10*3/uL NRBC Abs Auto 0.000 0.0-0.012 X10*3/uL Basic Metabolic Panel Reviewed date:04/28/2024 07:56:23 PM Interpretation: Performing Lab:[facility], [address] [place] [address] Notes/Report: Sodium 143 135-145 mmol/L Potassium 4.7 [...] Glomerular Filt Rate > 60 NOTE: For -Stateless individuals, multiply the result by 1.210. Chronic Kidney Disease: Estimated GFR < 60 mL/min/1.73m2 Severe Kidney Disease: Estimated GFR < 15 mL/min/1.73m2 Glucose Random 130 60-115 mg/dL Calcium 10.6 8.4-10.2 mg/dL Glucose, Whole Blood Reviewed date:04/28/2024 07:56:58 PM Interpretation: Performing Lab:[facility], [address] [place] [phone] Notes/Report: Glucose, Whole Blood 118 60-115 mg/dL METER # : [id number] XR chest 2V Reviewed date:04/29/2024 07:04:22 AM Interpretation: Performing Lab: Notes/Report: [address] [address] XRay Report Signed Patient: Javi Smith MR#: [id number] 8 : 1985 Acct:[id number] Age/Sex: 39 / M ADM Date: 04/28/24 Loc: .ED Attending Dr: Ordering Physician: Madhav Meade MD Date of Service: 04/28/24 Procedure(s): XR chest 2V Accession Number(s): [id number] cc: Alfonso Sierra MD; Madhav Meade MD [...] bibasilar infiltrates. Recommend short-term follow-up. Dictated By: Manny Ortiz MD Signed By: <Electronically signed by Manny Ortiz MD in OV> 04/28/24 1101 DD/ 1035 TD/TT: Coppersmith Apprentice: [address] [address] XRay Report Signed Patient: Javi Smith MR#: [id number] 8 : 1985 Acct:[id number] Age/Sex: 39 / M ADM Date: 04/28/24 Loc: HO.ED Attending Dr: Ordering Physician: Madhav Meade MD Date of Service: 04/28/24 Procedure(s): XR chest 2V Accession Number(s): [id number] cc: Alfonso Sierra MD; Madhav Meade MD EXAMINATION: XR CHEST CLINICAL INFORMATION: Back pain COMPARISON: 04/01/2024 TECHNIQUE: 2 views of the chest were obtained. FINDINGS: Poor inspiratory eff ort. There are minor infiltrates at the lung bases which could reflect a pneumonia or be secondary to this point perinephric. Follow- up therefore advised. Upper lungs are clear. Heart size normal wi th normal caliber pulmonary vessels. Post vertebroplasty changes seen in the mid to lower thoracic spine. X R/XR chest 2V IMPRESSION: Query early bibasila r infiltrates. Recommend short-term follow-up. Dictated By: Manny Ortiz MD Signed By: <Hemant salter signed by Manny Ortiz MD in OV> 04/28/24 1101 DD/ 1035 TD/TT: Coppersmith Apprentice: XR thoracic spine 2V Reviewed date:04/28/2024 08:00:24 PM Interpretation: Performing Lab: Notes/Report: [address] [address] XRay Report Signed Patient: Javi Smith MR#: [id number] 8 : 1985 Acct:[id number] Age/Sex: 39 / M ADM Date: 04/28/24 Loc: .ED Attending Dr: Ordering Physician: Madhav Meade MD Date of Service: 04/28/24 Procedure(s): XR thoracic spine 2V Accession Number(s): [id number] cc: Alfonso Sierra MD; Madhav Meade MD [...] signed by Fritz Redd MD in OV> 04/28/241128 DD/ 1035 TD/TT: Coppersmith Apprentice: JANICE [address] [address] XRay Report Signed Patient: Javi Smith MR#: [id number] 8 : 1985 Acct:[id number] Age/Sex: 39 / M ADM Date: 04/28/24 Loc: HO.ED Attending Dr: Ordering Physician: Madhav Meade MD Date of Service: 04/28/24 Procedure(s): XR tho racic spine 2V Accession Number(s): [id number] cc: Alfonso Sierra MD; Madhav Meade MD EXAMINATION: XR THORACOLUMBAR SPINE CLINICAL INFORMATION: Back pain COMPARISON: CT 03/28/2024 TECHNIQUE: AP and lateral radio graphs of the thoracic spine FINDINGS: Redemonstration of t he T10 and T11 kyphoplasty is which appears similar. There is approximately 30-40% loss of vertebral body height of T8 (and to a lesser extent the T7 vertebral body) which has slightly progressed since the prior study. X R/XR thoracic spine 2V IMPRESSION: Slight progression o f the compression deformity of T8 and to a lesser extent T7 since 03/28/2024. This could be better assessed with a thoracic spine CT or MRI. Dictated By: Fritz Redd MD Signed By: <Electron ically signed by Fritz Redd MD in OV> 04/28/24 1129 DD/ 1035 TD/TT: Transcriptio nist: JANICE XR lumbar spine 2-3V Reviewed date:04/28/2024 07:58:00 PM Interpretation: Performing Lab: Notes/Report: [address] [address] XRay Report Signed Patient: Javi Smith MR#: [id number] 8 : 1985 Acct:[id number] Age/Sex: 39 / M ADM Date: 04/28/24 Loc: HO.ED Attending Dr: Ordering Physician: Madhav Meade MD Date of Service: 04/28/24 Procedure(s): XR lumbar spine 2-3V Accession Number(s): [id number] cc: Alfonso Sierra MD; Madhav Meade MD [...] in OV> 04/28/24 1258 DD/ 1223 TD/TT: Coppersmith Apprentice: [address] [address] XRay Report Signed Patient: Javi Smith MR#: [id number] 8 : 1985 Acct:[id number] Age/Sex: 39 / M ADM Date: 04/28/24 Loc: HO.ED Attending Dr: Ordering Physician: Madhav Meade MD Date of Service: 04/28/24 Procedure(s): XR lum bar spine 2-3V Accession Number(s): [id number] cc: Alfonso Sierra MD; Madhav Meade MD EXAMINATION: XR LUMBOSACRAL SPINE CLINICAL INFORMATION: Lumbar pain. COMPARISON: 03/28/2024 CT and radiographs of the lumbar spine. TECHNIQUE: 3 views of the lumbo sacral spine. FINDINGS: Postsurgical changes redemonstrated from hernia mesh in the right lower quadrant. Prominent, nonspecific distended air-filled loops of bowel redemonstrated. Evidence of vertebra l augmentation in the partially imaged inferior aspect of the T11 vertebral body. Interval increased superior and inferior endplate concavities at the L2 vertebral body. Redemonstration of superior endplate concavity at the L4 vertebral body. Redemonstration of superior and inferior endplate concavities at the L5 vertebral body. 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 X R/XR lumbar spine 2-3V IMPRESSION: 1. Interval increase d superior and inferior endplate concavities at the L2 vertebral body. 2. Redemonstration o f superior endplate concavity at the L4 vertebral body. Redemonstratio n of superior and inferior endplate concavities at the L5 vertebral body. 3. Facet arthritis i n the lower lumbar spine. This study was prese nted today 04/28/2024 for interpretation. Stat results provided at this time as requested by referring provider. Dictated By: Gail Baca MD Signed By: <Hemant salter signed by Gail Baca MD in OV> 04/28/24 1258 DD/ 1223 TD/TT: Coppersmith Apprentice: XR shoulder LT min 2V Reviewed date:04/28/2024 07:58:30 PM Interpretation: Performing Lab: Notes/Report: [address] [address] XRay Report Signed Patient: Javi Smith MR#: [id number] 8 : 1985 Acct:[id number] Age/Sex: 39 / M ADM Date: 04/28/24 Loc: HO.ED Attending Dr: Ordering Physician: Madhav Meade MD Date of Service: 04/28/24 Procedure(s): XR shoulder LT min 2V Accession Number(s): [id number] cc: Alfonso Sierra MD; Madhav Meade MD [...] in OV> 04/28/24 1123 DD/ 1035 TD/TT: Coppersmith Apprentice: JANICE [place] [address] XRay Report Signed Patient: Javi Smith MR#: [id number] 8 : 1985 Acct:[id number] Age/Sex: 39 / M ADM Date: 04/28/24 Loc: .ED Attending Dr: Ordering Physician: Madhav Meade MD Date of Service: 04/28/24 Procedure(s): XR david agustin LT min 2V Accession Number(s): [id number] cc: Alfonso Sierra MD; Madhav Meade MD EXAMINATION: XR SHOULDER, LEFT CLINICAL INFORMATION: Pain. History of fracture. COMPARISON: CT 04/01/2024 TECHNIQUE: Three views of the l eft shoulder. FINDINGS: Incomplete healing o f the scapular body/neck fracture with posterior displacement and brigida raoul formation. The glenohumeral and acromioclavicular nicholas ints are unremarkable. X R/XR shoulder LT min 2V IMPRESSION: Incomplete healing o f the scapular body/neck fracture. Dictated By: Fritz Redd MD Signed By: <Electron ically signed by Fritz Redd MD in OV> 04/28/24 1123 DD/ 1035 TD/TT: Global Consumer Sector Vice President ist: DM Comprehensive Met. Panel Reviewed date:05/01/2024 06:25:16 PM Interpretation: Performing Lab:[facility], [address] [place] [address] Notes/Report: Sodium 142 135-145 mmol/L Potassium 3.7 3.3-5.1 mmol/L Chloride 103 96-108 mmol/L Carbon Dioxide 29 22-29 mmol/L Anion Gap 14 12-20 Blood Urea Nitrogen 13 9-16 mg/dL Creatinine 0.69 0.5-1.4 mg/dL Estimated Glomerular Filt Rate > 60 NOTE: For -Stateless individuals, multiply the result by 1.210. Chronic [...] Ionized Reviewed date:05/03/2024 12:34:14 PM Interpretation: Performing Lab:[facility], [address] [place] [address] Notes/Report: Calcium, Ionized 5.1 4.7-5.5 mg/dL THIS TEST WAS PERFORMED AT: [facility] [address] [address] RENETTA ARIAS MD Phosphorus Reviewed date:05/01/2024 06:23:06 PM Interpretation: Performing Lab:[facility], [address] [place] [address] Notes/Report: Phosphorus 3.7 2.7-4.5 mg/dL Vitamin D 25-OH Total Reviewed date:05/01/2024 06:24:24 PM Interpretation: Performing Lab:[facility], [address] [place] [phone] Notes/Report: Vitamin D 25-OH Total 38.7 >30 [...] T4 Reviewed date:05/01/2024 06:22:28 PM Interpretation: Performing Lab:[address] [phone] Notes/Report: TSH reflex Free T4 0.94 0.32-4.0 uIU/mL Parathyroid Hormone Intact Reviewed date:05/01/2024 06:24:55 PM Interpretation: Performing Lab:[facility], [address] [place] [phone] Notes/Report: Parathyroid Hormone Intact 26.3 8.7-77.1 pg/mL Calcium Reviewed date:05/04/2024 12:33:52 PM Interpretation: Performing Lab:[facility], [address] [place] [phone] Notes/Report: Calcium 10.3 8.4-10.2 mg/dL Albumin Level Reviewed date:05/04/2024 12:33:59 PM Interpretation: Performing Lab:[facility], [address] [place] [address] Notes/Report: Albumin Level 4.3 3.5-5.0 g/dL Testosterone, Free/Total Reviewed date:05/10/2024 12:24:45 PM Interpretation: Performing Lab:[facility], [address] [place] [address] Notes/Report: Testosterone, Total 819 [address]-5[address] ng/dL For additional information, please refer to http://education.[employer]/fa q/ TotalTestosteroneM [id number] (This link is being provided for informational/ educational purposes only.) This test was developed and its analytical performance characteristics have been determined by [employer] [place], [place]. It has not been cleared or approved by the U.S. Food and Drug Administration. This assay has been validated pursuant to the CLIA regulations and is used for clinical purposes. Testosterone, Free 57.3 35.0-155.0 pg/mL This test was developed and its analytical performance characteristics have been determined by [employer] [place], [place]. It has not been cleared or approved by the U.S. Food and Drug Administration. This assay has been validated pursuant to the CLIA regulations and is used for clinical purposes. THIS TEST WAS PERFORMED AT: [facility]/[facility] [address] DYAN TUCKER MD,PHD Alkaline Phosphatase Bone Reviewed date:05/10/2024 12:24:07 PM Interpretation: Performing Lab:[facility], [address] [place] [address] Notes/Report: Alkaline Phosphatase Bone 30.9 7.7-21.3 mcg/L THIS TEST WAS PERFORMED AT: [employer]/[facility] [address] DYAN TUCKER MD,PHD Collagen Crosslinks NTX Reviewed date:05/09/2024 02:16:17 PM Interpretation: Performing Lab:[facility], [address] [place] [address] Notes/Report: N-Telopeptide 144 9-60 Result Units: nM BCE/mM creat Units of Measure: nM BCE/mM creat NTXCreaRU 206 20-320 mg/dL THIS TEST WAS PERFORMED AT: [facility]/[facility] [address] DYAN TUCKER MD,PHD Collagen Type I C-Telopeptid e Reviewed date:05/10/2024 12:23:51 PM Interpretation: Performing Lab:[facility], [address] [place], [place] [phone] Notes/Report: Collagen Type I C-Telopeptide 958 70-780 pg/mL No reference range is provided for postmenopausal women because of the increased rate of bone turnover post-menopause. It is recommended that results for postmenopausal women be compared to the premenopausal reference range as this will give a better indication of their rate of bone loss. For additional information, please refer to https://Moximed.Flexcom/f [email or web address]/OWQ799 (This link is being provided for informational/ educational purposes only.) THIS TEST WAS PERFORMED AT: [facility]/[address] DYAN TUCKER MD,PHD XR chest 2V Reviewed date:06/03/2024 08:57:08 AM Interpretation: Performing Lab: Notes/Report: [address] [address] XRay Report Signed Patient: Javi Smith MR#: [id number] 8 : 1985 Acct:[id number] Age/Sex: 39 / M ADM Date: 05/11/24 Loc: HO.JAMAALAY Attending Dr: Alfonso Sierra MD Ordering Physician: Alfonso Sierra MD Date of Service: 05/11/24 Procedure(s): XR chest 2V Accession Number(s): [id number] cc: Alfonso Sierra MD EXAMINATION: XR CHEST CLINICAL INFORMATION: Back pain since December per patient. Back surgery in February per patient. COMPARISON: 04/28/2024. TECHNIQUE: 2 views of the chest were obtained. FINDINGS: There is no gross pneumothorax. Lung volumes are low. Heart size is normal. Redemonstration bibasilar opacities, predominantly left base. Redemonstration of vertebroplasty changes in the qrk-dg-ouiaj thoracic spine. Small left pleural effusion. Degenerative changes in the thoracic spine. XR/XR chest 2V IMPRESSION: 1. Redemonstration of bibasilar opacities, predominantly left base, with some interval improvement. Small left pleural effusion. 2. Recommend follow-up to resolution. Dictated By: Gail Baca MD Signed By: <Electronically signed by Gail Baca MD in OV> 06/02/24 0707 DD/ 0912 TD/TT: Coppersmith Apprentice: [address] [address] XRay Report Signed Patient: Javi Smith MR#: [id number] 8 : 1985 Acct:[id number] Age/Sex: 39 / M ADM Date: 05/11/24 Loc: LEEANNA Attending Dr: Alfonso Sierra MD Ordering Physician: Alfonso Sierra MD Date of Service: 05/11/24 Procedure(s): XR chest 2V Accession Number(s): [id number] cc: Alfonso Sierra MD EXAMINATION: XR CHEST CLINICAL INFORMATION: Back pain since per patient. Back surgery in February per patient. COMPARISON: 04/28/2024. TECHNIQUE: 2 views of the chest were obtained. FINDINGS: There is no gross pneumothorax. Lung volumes are low. Heart size is normal. Redemonstration biba silar opacities, predominantly left base. Redemonstration of vertebroplasty changes in the acq-hr-lweph thoracic spine. Small left pleural effusion. Degenerative changes in the thoracic spine. X R/XR chest 2V IMPRESSION: 1. Redemonstration o f bibasilar opacities, predominantly left base, with some interval improvement. Small left pleural effusion. 2. Recommend follow- up to resolution. Dictated By: Gail Baca MD Signed By: <Hemant salter signed by Gail Baca MD in OV> 06/02/24 0707 DD/ 0912 TD/TT: Coppersmith Apprentice: XR chest 2V Reviewed date:07/14/2024 08:39:43 AM Interpretation: Performing Lab: Notes/Report: [address] [address] XRay Report Signed Patient: Javi Smith MR#: [id number] 8 : 1985 Acct:[id number] Age/Sex: 39 / M ADM Date: 06/15/24 Loc: LEEANNA Attending Dr: Alfonso Sierra MD Ordering Physician: Alfonso Sierra MD Date of Service: 06/15/24 Procedure(s): XR chest 2V Accession Number(s): [id number] cc: Alfonso Sierra MD EXAMINATION: XR chest 2V CLINICAL INFORMATION: BACK PAIN COMPARISON: Chest radiograph 03/30/2024, 05/11/2024 TECHNIQUE: 2 views of the chest FINDINGS/ XR/XR chest 2V IMPRESSION: Clear lungs. No pneumothorax. No pleural effusion. Normal cardiomediastinal silhouette. Status post lower thoracic vertebral body kyphoplasty, similar to prior study. Electronically signed by: Pina Allison MD 07/13/2024 06:16 PM EDT RP Dictated By: Pina Allison MD Signed By: <Electronically signed by Pina Allison MD in OV> 07/13/24 181 DD/ 0745 TD/TT: 06/15/24 0753 Coppersmith Apprentice: [address] [address] XRay Report Signed Patient: Javi Smith MR#: [id number] 8 : 1985 Acct:[id number] Age/Sex: 39 / M ADM Date: 06/15/24 Loc: LEEANNA Attending Dr: Alfonso Sierra MD Ordering Physician: Alfonso Sierra MD Date of Service: 06/15/24 Procedure(s): XR chest 2V Accession Number(s): [id number] cc: Alfonso Sierra MD EXAMINATION: XR chest 2V CLINICAL INFORMATION: BACK PAIN COMPARISON: Chest radiograph 03/30/2024, 05/11/2024 TECHNIQUE: 2 views of the chest FINDINGS/ X R/XR chest 2V IMPRESSION: Clear lungs. No pneumothorax. No pleural effusion. Normal cardiomediast inal silhouette. Status post lower th oracic vertebral body kyphoplasty, similar to prior study. Electronically camille d by: Pina Allison MD 07/13/2024 06:16 PM EDT RP Dictated By: Pina Allison MD Signed By: <Electron gaetano signed by Pina Allison MD in OV> 07/13/24 1816 DD/ 0745 TD/TT: 06/15/24 0753 Coppersmith Apprentice: Complete Blood Count Auto Di ff Reviewed date:08/03/2024 12:14:32 PM Interpretation: Performing Lab:[facility], [address] [place] [address] Notes/Report: White Blood Count 9.5 4.8-10.8 X10*3/uL [...] 0.0 0.0-0.2 /100WBC Neutrophils Absolute Auto 8.1 2.0-8. 3 x10*3/uL Imm Gran Abs Auto 0.03 0.00-0.03 X10*3/uL Lymphocytes Absolute Auto 0.6 1.2-4. 9 X10*3/uL Monocytes Absolute Auto 0.6 0.1-1.2 X10*3/uL Eosinophils Absolute Auto 0.1 0.0-0. 4 X10*3/uL Basophils Absolute Auto 0.0 0.0-0.2 X10*3/uL NRBC Abs Auto 0.000 0.0-0.012 X10*3/uL Prothrombin Time INR Reviewed date:08/03/2024 12:25:49 PM Interpretation: Performing Lab:[facility], [address] [place] [phone] Notes/Report: Prothrombin Time 12.7 10.9-12.4 [employer] [...] Panel Reviewed date:08/03/2024 12:26:08 PM Interpretation: Performing Lab:[facility], [address] [place] [address] Notes/Report: Sodium 140 135-145 mmol/L Potassium 3.7 [...] Glomerular Filt Rate > 60 NOTE: For -Stateless individuals, multiply the result by 1.210. Chronic [...] Lipase Reviewed date:08/03/2024 12:13:19 PM Interpretation: Performing Lab:[facility], [address] [place] [address] Notes/Report: Lipase 38 8-78 U/L UA CC w/rflx Micro + Cult Reviewed date:08/05/2024 12:23:32 PM Interpretation: Performing Lab:[facility], [address] [place] [address] Notes/Report: [id number] Urine, Clean Catch Color Urine Dark Yellow Appearance Urine Clear PH 6.0 5.0-9.0 Glucose Urine UA Negative Negative mg/dL Urine Blood Negative Negative Specific [place] - Urine 1.025 1.005-1.025 Urine Protein Negative Neg-Trace mg/dL Urine Ketones Negative Negative mg/dL Nitrite Urine Negative Negative Leukocyte Esterase Urine Negative Negative XR lumbar spine 2-3V Reviewed date:08/05/2024 12:23:16 PM Interpretation: Performing Lab: Notes/Report: [address] [address] XRay Report Signed Patient: Javi Smith MR#: [id number] 8 : 1985 Acct:[id number] Age/Sex: 39 / M ADM Date: 08/03/24 Loc: HO.ED Attending Dr: Ordering Physician: Long Villagran Date of Service: 08/03/24 Procedure(s): XR lumbar spine 2-3V Accession Number(s): [id number] cc: Alfonso Sierra MD; Long Villagran EXAMINATION: [...] 08/03/24 1325 DD/ 1133 TD/TT: 08/03/24 1154 Coppersmith Apprentice: SARAH [address] [address] XRay Report Signed Patient: Javi Smith MR#: [id number] 8 : 1985 Acct:[id number] Age/Sex: 39 / M ADM Date: 08/03/24 Loc: HO.ED Attending Dr: Ordering Physician: Long Villagran Date of Service: 08/03/24 Procedure(s): XR lum bar spine 2-3V Accession Number(s): [id number] cc: Alfonso Sierra MD; Long Villagran EXAMINATION: XR LUMBOSACRAL SPINE CLINICAL INFORMATION: Ongoing back pain. COMPARISON: Lumbar spine 04/28/2024 TECHNIQUE: Three views of the lumbosacral spine. FINDINGS: Kyphoplasty changes are seen at T10 and T11. Prior right inguinal hernia surgery. Agai n noted are superior endplate compression fractures involving L2 and L5, unchanged when compared to prior. No new compression fracture s. There is mild disc space narrowing at L3-L4 and L4-L5. There has bee n no interval change when compared to the prior study. X R/XR lumbar spine 2-3V IMPRESSION: 1. Stable appearance of compression fractures involving L2 and L5. No new compression fractures. 2. Kyphoplasty up es at T10 and T11. Electronically camille d by: Madhav Bhat MD 08/03/2024 01:25 PM EDT Dictated By: Madhav Bhat MD Signed By: <Hemant salter signed by Madhav Bhat MD in OV> 08/03/24 1325 DD/ 1133 TD/TT: 08/03/24 1154 Coppersmith Apprentice: SARAH Complete Blood Count Auto Di ff Reviewed date:10/05/2024 12:46:36 PM Interpretation: Performing Lab:[facility], [address] [place] [phone] Notes/Report: White Blood Count 12.5 4.8-10.8 X10*3/uL [...] 0.0 0.0-0.2 /100WBC Neutrophils Absolute Auto 11.3 2.0-8. 3 x10*3/uL Imm Gran Abs Auto 0.06 0.00-0.03 X10*3/uL Lymphocytes Absolute Auto 0.5 1.2-4. 9 X10*3/uL Monocytes Absolute Auto 0.6 0.1-1.2 X10*3/uL Eosinophils Absolute Auto 0.1 0.0-0. 4 X10*3/uL Basophils Absolute Auto 0.0 0.0-0.2 X10*3/uL NRBC [...] 0.0 0.0-0.2 /100WBC Neutrophils Absolute Auto 11.3 2.0-8. 3 x10*3/uL Imm Gran Abs Auto 0.06 0.00-0.03 X10*3/uL Lymphocytes Absolute Auto 0.5 1.2-4. 9 X10*3/uL Monocytes Absolute Auto 0.6 0.1-1.2 X10*3/uL Eosinophils Absolute Auto 0.1 0.0-0. 4 X10*3/uL Basophils Absolute Auto 0.0 0.0-0.2 X10*3/uL NRBC Abs Auto 0.000 0.0-0.012 X10*3/uL RADHA ECTED REPORT RADHA ECTED REPORT Comprehensive Met. Panel Reviewed date:10/05/2024 12:43:21 PM Interpretation: Performing Lab:[facility], [address] [place] [address] Notes/Report: Sodium 139 135-145 mmol/L Potassium 4.2 [...] REVIEW Reviewed date:10/05/2024 12:41:54 PM Interpretation: Performing Lab:[facility], [address] [place] [address] Notes/Report: SLIDE REVIEW VERIFIED CT lumbar spine wo con Reviewed date:10/07/2024 03:28:04 PM Interpretation: Performing Lab: Notes/Report: [address] [address] [address] Scan Report Signed Patient: Javi Smith MR#: [id number] 8 : 1985 Acct:[id number] Age/Sex: 39 / M ADM Date: 10/05/24 Loc: HO.ED Attending Dr: Ordering Physician: Homer Larsen MD Date of Service: 10/05/24 Procedure(s): CT lumbar spine wo IV con Accession Number(s): [id number] cc: Alfonso Seirra MD; Homer Larsen MD EXAMINATION: CT LUMBAR [...] 10/05/24 1821 DD/ 1549 TD/TT: 10/05/24 1653 Coppersmith Apprentice: [address] [address] [address] Scan Report Signed Patient: Javi Smith MR#: [id number] 8 : 1985 Acct:[id number] Age/Sex: 39 / M ADM Date: 10/05/24 Loc: HO.ED Attending Dr: Ordering Physician: Homer Larsen MD Date of Service: 10/05/24 Procedure(s): CT lum bar spine wo IV con Accession Number(s): [id number] cc: Alfonso Sierra MD; Homer Larsen MD EXAMINATION: CT LUMBAR SPINE WITH OUT CONTRAST CLINICAL INFORMATION: Burst fracture of th e lumbar spine. COMPARISON: Lumbar spine radiogr aphs from 11/02/2024. TECHNIQUE: Multidetector helica l imaging of the lumbar spine was obtained without intravenous contrast . Multiple axial reformats and coronal/sagittal reconstructions were created the technologist workstation for review. This CT examination was performed using dose optimization techniques as appropriate, various ly including the following: *Automated exposure control. *Adjustment of mA an d/or kV according to patient size (this includes techniques or standa rdized protocols for targeted exams where dose is matched to indication/reason for exam; i.e. extremities or head). *Use of iterative reconstruction technique. DLP: 481 mGy-cm FINDINGS: Normal anatomic alig nment. No evidence of acute fracture or traumatic subluxation. 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 Chronic compression deformit ies of the L2, L4, and L5 vertebral bodies with moderate Schmorl's n odes in the superior endplates of each of these levels. There is 60% loss of L2 vertebral body height, 20% loss of L4 superior endplate he ight, and 60% loss of L5 vertebral body height. Mild chronic retropu lsion of the superior-posterior body wall of L2, L4, and L5. The beny ining vertebral body heights are maintained. Mild multilevel degenerat maricruz disc disease throughout the lumbar spine. No suspicious lytic or sclerotic osseous lesions. No significant abnormalities of the paraspinal musculature. Prominent expansion of the uri nary bladder. Otherwise, limited evaluation of the intra-abdominal stru ctures without significant abnormalities. The abdominal aorta is o f normal contour and caliber. AXIAL SPINAL LEVELS: L1-L2: Mild diffuse disc bulge with posterior osseous ridging. There is mild bilateral facet joint arthropathy. There is no neural foraminal stenosis. There is n o demonstrated spinal canal stenosis. L2-L3: Normal annula r contour. There is mild bilateral facet joint arthropathy. There i s no neural foraminal stenosis. There is no demonstrated spinal canal stenosis. L3-L4: Moderate diff use disc bulge with posterior osseous ridging. There is mild to mod erate bilateral facet joint arthropathy. There is mild bilateral neura l foraminal stenosis. There is no demonstrated spinal canal stenosis. L4-L5: Mild diffuse disc bulge with posterior osseous ridging. There is mild to moderate logan ateral facet joint arthropathy. There is mild bilateral neural for aminal stenosis. There is no demonstrated spinal canal stenosis. L5-S1: Shallow diffu se disc bulge. There is mild bilateral facet joint arthropathy. There i s mild bilateral neural foraminal stenosis. There is no demonstrated s juliette canal stenosis. C T/CT lumbar spine wo IV con IMPRESSION: 1. No evidence of ac misha fracture or traumatic subluxation of the lumbar spine. 2. Chronic compressi on deformities of the L2, L4, and L5 vertebral bodies. 3. Otherwise, mild multilevel degenerative spondyloarthropathy of the lumbar spine as desc ribed in detail above. Most notably on this limited exam without intrath ecal contrast, there appears to be mild neural foraminal stenoses f rom L3-S1. No demonstrated overt spinal canal stenosis. 4. Prominent expansi on of the urinary bladder. Electronically camille d by: Will Cabral DO 10/05/2024 06:21 PM [facility] Dictated By: Mic Cabral DO Signed By: <Electron ically signed by Dave Cabral DO in OV> 10/05/24 1821 DD/ 1549 TD/TT: 10/05/24 1653 Coppersmith Apprentice: GEOVANNA CT chest wo con Reviewed date:10/14/2024 12:09:34 PM Interpretation:appt 10-14-2024 Performing Lab: Notes/Report: [address] [address] [address] Scan Report Signed Patient: Javi Smith MR#: [id number] 8 : 1985 Acct:[id number] Age/Sex: 39 / M ADM Date: 10/05/24 Loc: HO.ED Attending Dr: Ordering Physician: Homer Larsen MD Date of Service: 10/05/24 Procedure(s): CT chest wo IV con Accession Number(s): [id number] cc: Alfonso Sierra MD; Homer Larsen MD [...] Jose Alfredo Garcia MD 10/05/2024 08:36 PM EST Dictated By: Jose Alfredo Garcia MD Signed By: <Electronically signed by Jose Alfredo Garcia MD in OV> 10/05/242035 DD/ 42 TD/TT: 10/05/241652 Coppersmith Apprentice: [place] [address] CT Scan Report Signed Patient: Javi Smith MR#: [id number] 8 : 1985 Acct:[id number] Age/Sex: 39 / M ADM Date: 10/05/24 Loc: HO.ED Attending Dr: Ordering Physician: Homer Larsen MD Date of Service: 10/05/24 Procedure(s): CT yue st wo IV con Accession Number(s): [id number] cc: Alfonso Sierra MD; Homer Larsen MD EXAMINATION: CT CHEST WITHOUT CONTRAST CLINICAL INFORMATION: Abnormal chest radiograph COMPARISON: CT lumbar spine Dece mb2023, chest radiograph October 05, 2024 TECHNIQUE: Multidetector volume tric CT imaging of the chest was done. Axial MIP volume rendering pro vided. Sagittal and coronal reformatted images were obtained. This CT examination was performed using dose optimization techniques as appropriate, various ly including the following: *Automated exposure control *Adjustment of mA an d/or kV according to patient size (this includes techniques or standa rdized protocols for targeted exams where dose is matched to indication/reason for exam; i.e. extremities or head) *Use of iterative reconstruction technique DLP: 761 mGy-cm FINDINGS: LUNGS: Dependent atelectasis bilaterally. No focal consolidation. No pleural effusion. MEDIASTINUM: The mediastinum is normal. CORONARY ARTERY CALCIFICATION: None visualized on this study. AXILLA: No lymphadenopathy. UPPER ABDOMEN: Parti ally visualized ascites posterior to the liver OSSEOUS STRUCTURES: Vertebral augmentation cement within the T10 and T11 vertebral bodies . Age indeterminate compression deformities of T7 and T8. C T/CT chest wo IV con IMPRESSION: 1. No acute pulmonar y findings. 2. Age indeterminate compression deformities of T7 and T8. 3. Partially visuali zed ascites posterior to the liver. Fleischner guideline s were followed. Electronically camille d by: Jose Alfredo Garcia MD 10/05/2024 08:36 PM [facility] Dictated By: Darron Garcia MD Signed By: <Electronically signed by Jose Alfredo Garcia MD in OV> 10/05/242035 DD/ 164 TD/TT: 10/05/24 165 Coppersmith Apprentice: CT head/brain wo con Reviewed date:10/05/2024 01:00:35 PM Interpretation: Performing Lab: Notes/Report: [address] [address] [address] Scan Report Signed Patient: Javi Smith MR#: [id number] 8 : 1985 Acct:[id number] Age/Sex: 39 / M ADM Date: 10/05/24 Loc: HO.ED Attending Dr: Ordering Physician: Homer Larsen MD Date of Service: 10/05/24 Procedure(s): CT head/brain wo IV con Accession Number(s): [id number] cc: Alfonso Sierra MD; Homer Larsen MD [...] Claude Casas MD 10/05/2024 12:44 PM EST Dictated By: Claude Brown MD Signed By: <Electronically signed by Claude Rowland MD in OV> 10/05/24 1244 DD/ 1154 TD/TT: 10/05/24 1159 Coppersmith Apprentice: [place] [address] CT Scan Report Signed Patient: Javi Smith MR#: [id number] 8 : 1985 Acct:[id number] Age/Sex: 39 / M ADM Date: 10/05/24 Loc: .ED Attending Dr: Ordering Physician: Homer Larsen MD Date of Service: 10/05/24 Procedure(s): CT head/brain wo IV con Accession Number(s): [id number] cc: Alfonso Sierra MD; Homer Larsen MD EXAMINATION: CT HEAD WITHOUT CONTRAST CLINICAL INFORMATION: seizure COMPARISON: CT dated March 28, 2024. TECHNIQUE: Contiguous axial sugar ging was performed from the skull base to vertex without intravenous administration of contrast. This CT examination was performed using dose optimization techniques as appropriate, various ly including the following: *Automated exposure control *Adjustment of mA an d/or kV according to patient size (this includes techniques or standa rdized protocols for targeted exams where dose is matched to indication/reason for exam; i.e. extremities or head) *Use of iterative reconstruction technique DLP: 780 mGy-cm FINDINGS: Limited by patient's motion artifact. Bony calvarium is intact. Skull base is intact. No acute intracrania l hemorrhage, mass effect, midline shift, hydrocephalus or herniation. Yeager-white matter differentiation is normal. Posterior cranial fo ssa contents demonstrated no acute intracranial hemorrhage or mass effect. Calcified plaques in the cavernous supracavernous segments both ICAs. Polyploid mucosal thickening in both maxillary sinuses. 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 Probable high riding internal jugular bulbs, bilaterally. Prominent internal auditory canals. C T/CT head/brain wo IV con IMPRESSION: No acute fracture, b jesse calvarium. No acute intracrania l hemorrhage. Stable appearance of the brain. Polypoid pattern par anasal sinus disease. Electronically camille d by: Claude Casas MD 10/05/2024 12:44 PM EST RP Dictated By: Claude Garcia MD Signed By: <Electron ically signed by Claude Rowland MD in OV> 10/05/24 1244 DD/ 1154 TD/TT: 10/05/24 1159 Coppersmith Apprentice: XR chest 2V Reviewed date:10/05/2024 04:45:14 PM Interpretation: Performing Lab: Notes/Report: [place] [address] XRay Report Signed Patient: Javi Smith MR#: [id number] 8 : 1985 Acct:[id number] Age/Sex: 39 / M ADM Date: 10/05/24 Loc: .ED Attending Dr: Ordering Physician: Homer Larsen MD Date of Service: 10/05/24 Procedure(s): XR chest 2V Accession Number(s): [id number] cc: Alfonso Sierra MD; Homer Larsen MD [...] 10/05/24 1429 DD/ 1320 TD/TT: 10/05/24 1330 Coppersmith Apprentice: [address] [address] XRay Report Signed Patient: Javi Smith MR#: [id number] 8 : 1985 Acct:[id number] Age/Sex: 39 / M ADM Date: 10/05/24 Loc: HO.ED Attending Dr: Ordering Physician: Homer Larsen MD Date of Service: 10/05/24 Procedure(s): XR chest 2V Accession Number(s): [id number] cc: Alfonso Sierra MD; Homer Larsen MD EXAMINATION: XR CHEST CLINICAL INFORMATION: cough COMPARISON: X-ray dated June 032023 TECHNIQUE: 2 views of the chest were obtained. FINDINGS: Prominence of the interstitial lung markings with indistinct margins in the perihilar region s and the lower hemithoraces. No gross pleural effusion. No pneumot horax. Low lung volume. Cardiac mediastinal silhouette appears unchanged. Status post kyphoplasty/vertebroplasty procedure at T10 and T11. X R/XR chest 2V IMPRESSION: Pulmonary edema in t he correct clinical settings. Electronically camille d by: Claude Casas MD 10/05/2024 02:29 PM [facility] Dictated By: Claude Garcia MD Signed By: <Electron ically signed by Claude Rowland MD in OV> 10/05/24 1429 DD/ 1320 TD/TT: 10/05/24 1330 Coppersmith Apprentice: XR lumbar spine 2-3V Reviewed date:10/05/2024 04:45:47 PM Interpretation: Performing Lab: Notes/Report: [address] [address] XRay Report Signed Patient: Javi Smith MR#: [id number] 8 : 1985 Acct:[id number] Age/Sex: 39 / M ADM Date: 10/05/24 Loc: HO.ED Attending Dr: Ordering Physician: Homer Larsen MD Date of Service: 10/05/24 Procedure(s): XR lumbar spine 2-3V Accession Number(s): [id number] cc: Alfonso Sierra MD; Homer Larsen MD [...] by: Claude Casas MD 10/05/2024 02:32 PM [facility] Dictated By: Claude Brown MD Signed By: <Electronically signed by Claude Rowland MD in OV> 10/05/24 1432 DD/ 1308 TD/TT: 10/05/24 1330 Coppersmith Apprentice: [place] [address] XRay Report Signed Patient: Javi Smith MR#: [id number] 8 : 1985 Acct:[id number] Age/Sex: 39 / M ADM Date: 10/05/24 Loc: HO.ED Attending Dr: Ordering Physician: Homer Larsen MD Date of Service: 10/05/24 Procedure(s): XR lum bar spine 2-3V Accession Number(s): [id number] cc: Alfonso Sierra MD; Homer Larsen MD EXAMINATION: XR LUMBOSACRAL SPINE CLINICAL INFORMATION: back pain COMPARISON: X-ray dated August 03, 2024 TECHNIQUE: Three views of the lumbosacral spine. FINDINGS: Burst fractures representing 50% volume loss at L2 and L5. Kyphoplasty/vertebro plasty procedure at T10 and T11. Osteopenia versus osteoporosis. No gross malalignment. Abundant stool in th e large intestine. Metallic coils overl apping the right lower pelvis/inguinal region. X R/XR lumbar spine 2-3V IMPRESSION: Subacute to old burs t fractures, L2 and L5. Osteopenia versus osteoporosis. Electronically camille d by: Claude Casas MD 10/05/2024 02:32 PM EST Dictated By: Claude Garcia MD Signed By: <Electron ically signed by Claude Rowland MD in OV> 10/05/24 1432 DD/ 1308 TD/TT: 10/05/24 1330 Coppersmith Apprentice: MR lumbar spine wo con Reviewed date:11/18/2024 05:48:20 PM Interpretation: Performing Lab: Notes/Report: [place] [address] Magnetic Resonance Report Signed Patient: Javi Smith MR#: [id number] 8 : 1985 Acct:[id number] Age/Sex: 39 / M ADM Date: 10/19/24 Loc: HO.MRI Attending Dr: Boo Foster MD Ordering Physician: Boo Foster MD Date of Service: 10/19/24 Procedure(s): MR lumbar spine wo con Accession Number(s): [id number] cc: Alfonso Sierra MD; Boo Foster MD EXAMINATION: MR LUMBAR SPINE WITHOUT CONTRAST CLINICAL INFORMATION: 39-year-old with osteoporosis and history of vertebral compression fracture and kyphoplasty, with low back pain. COMPARISON: 01/10/2024 MRI, 10/05/2024 CT. TECHNIQUE: MRI of the lumbar spine was obtained using routine sequences without contrast. FINDINGS: CORONAL ALIGNMENT: Partially imaged lower thoracic dextrocurvature suspected on the generator switchboard operator view on the current study, probably unchanged from prior CT. SAGITTAL ALIGNMENT: There is mild gibbus angulation at the T10-T11 Junction similar to the previous MRI. Otherwise, the lumbosacral spine is anatomically aligned. LUMBOSACRAL JUNCTION: Normal. There are 5 fjb-dbs-dnpxore lumbar-type vertebral bodies. VERTEBRAL BODIES: There is a stable moderate chronic, healed superior endplate compression fracture deformity of L5 with mild retropulsion of the superior endplate similar to the prior CT. There is a stable mild chronic superior endplate concave compression deformity which appears healed involving the superior endplate of L4 similar to the prior CT. There is a moderate, chronic, healed superior endplate concave compression fracture deformity of L2 with minimal retropulsion of the superior endplate similar to the prior CT. There is evidence of a previous kyphoplasty involving the T11 vertebral compression deformity with associated signal loss within the vertebral body consistent with this. Bone marrow signal intensity has normalized adjacent to the cement consistent with a healed chronic compression fracture deformity with a stable mild degree of retropulsion of the superior endplate without cord impingement. No new compression fractures are seen since the previous CT. There is partially imaged kyphoplasty changes involving T10. DISC SPACES AND ENDPLATES: Intradiscal degenerative signal changes primarily at L1-L2, L3-L4 and L4-L5. No significant spondylosis. Schmorl's nodes noted along the superior endplate of L5, L4 and L2 similar to the prior CT. SPINAL CANAL: No abnormal developmental findings. BONE MARROW: No suspicious marrow-replacing process or new bone marrow edema. CONUS MEDULLARIS: Terminates at L2. Morphology and signal is normal. INTRADURAL NERVE ROOTS: Within normal limits. L5-S1: Normal annular contour. Cutb-zw-bkgrwgfc facet joint arthropathy right more than left without significant canal or neural foraminal stenosis unchanged. L4-L5: Concentric disc osteophyte complex has developed since previous exam at this level with mild flattening of the ventral dural sac. Mild ligamentum flavum thickening has developed. There is mild facet joint arthropathy bilaterally stable in appearance without significant canal or neural foraminal stenosis. L3-L4: Focally retropulsed superior endplate of the compressed L4 vertebral body results in mild flattening of the ventral dural sac. No interval change. Underlying mild disc bulging slightly encroaches on the foramina bilaterally unchanged. No significant canal or neural foraminal stenosis. L2-L3: Normal annular contour. Mild facet joint hypertrophic changes bilaterally. No canal or foraminal stenosis. L1-L2: Mild retropulsion of the superior endplate of L2 with mild indentation of the ventral thecal sac since the previous MRI. No significant facet joint arthrosis, canal or neural foraminal stenosis. T12-L1: Normal annular contour. No facet joint arthrosis, canal or neural foraminal stenosis. T11-T12: Normal annular contour. No facet joint arthrosis, canal or neural foraminal stenosis. T10-T11: Retropulsed superior endplate of T11 with mild flattening of the ventral dural sac without cord impingement or canal stenosis. No significant foraminal stenosis. PARAVERTEBRAL AND INCLUDED EXTRASPINAL SOFT TISSUES: Mildly prominent tubular cystic-appearing structure in the aortocaval interval and retrocaval region at the L1-L2 level, not definitely seen on previous exam but could reflect a dilated venous structure. Otherwise the visualized paravertebral soft tissues are unremarkable. There are a few simple-appearing cortical cysts in the upper and lower poles of the left kidney and lateral cortex of the interpolar segment of the right kidney. Limited evaluation. No specific follow up recommended based on the current ACR Best Practice Guidelines. MR/MR lumbar spine wo con IMPRESSION: 1. Multiple chronic, healed compression fractures of the lumbar and lower thoracic spine as described above with no significant interval change from previous CT with no significant spinal canal or neural foraminal stenosis. 2. Multilevel bilateral facet joint arthropathy as described above, with disc bulging and disc osteophyte complex at L3-L4 and L4-L5 respectively without significant spinal canal or neural foraminal stenosis. 3. Discogenic degenerative changes primarily at L1-L2, L3-L4 and L4-L5 as discussed above without significant spinal canal or neural foraminal stenosis. 4. Status post vertebral augmentation at T10 and T11 with no definite recurrent marrow edema to suggest that these are not healed. Note that T10 is only partially visualized. There is mild retropulsion of the superior endplate of T11 without spinal cord impingement and there is mild gibbus angulation at T10-T11 similar to the previous MRI. 5. Probable dilated venous structure in the retroperitoneal region at the L1-L2 level which is a new finding since the previous exam, of indeterminate significance. Electronically signed by: Samir Melton MD 11/17/2024 02:16 PM [facility] Dictated By: SAMIR MELTON MD Signed By: <Electronically signed by SAMIR MELTON MD in OV> 11/17/24 1416 DD/ 0743 TD/TT: 10/19/24 0830 [employer] Apprentice: [address] [address] Magnetic Resonance Report Signed Patient: Javi Smith MR#: [id number] 8 : 1985 Acct:[id number] Age/Sex: 39 / M ADM Date: 10/19/24 Loc: HO.MRI Attending Dr: Boo Foster MD Ordering Physician: Boo Foster MD Date of Service: 10/19/24 Procedure(s): MR lum bar spine wo con Accession Number(s): [id number] cc: Alfonso Sierra MD; Boo Foster MD EXAMINATION: MR LUMBAR SPINE WITH OUT CONTRAST CLINICAL INFORMATION: 39-year-old with osteoporosis and history of vertebral compression fracture and kyphopl asty, with low back pain. COMPARISON: 01/10/2024 MRI, 01/2024 CT. TECHNIQUE: MRI of the lumbar sp ine was obtained using routine sequences without contrast. FINDINGS: CORONAL ALIGNMENT: Partially imaged lower thoracic dextrocurvature suspected on the sco ut view on the current study, probably unchanged from prior CT. SAGITTAL ALIGNMENT: There is mild gibbus angulation at the T10-T11 Junction similar to the previous MRI. Otherwise, the lumbosacral spine is anatomically aligned. LUMBOSACRAL JUNCTION : Normal. There are 5 yzo-ajb-jszwxlo lumbar-type vertebral bodies. VERTEBRAL BODIES: Th ere is a stable moderate chronic, healed superior endplate compression fracture deformity of L5 with mild retropulsion of the superior endplat e similar to the prior CT. There is a stable mild chronic superior end plate concave compression deformity which appears healed involving the superior endplate of L4 similar to the prior CT. There is a moderate, chronic, healed superior endplate concave compression fracture deformity of L2 with minimal retropulsion of the superior endplate si milar to the prior CT. There is evidence of a previous kyphoplasty involving the T11 vertebral compression deformity with associated sign al loss within the vertebral body consistent with this. Bone marrow si gnal intensity has normalized adjacent to the cement consistent wi th a healed chronic compression fracture deformity with a stable mild d egree of retropulsion of the superior endplate without cord impinge ment. No new compression fractures are seen since the previous CT. The re is partially imaged kyphoplasty changes involving T10. DISC SPACES AND ENDP LATES: Intradiscal degenerative signal changes primarily at L1-L2, L3-L4 and L4-L5. No significant spondylosis. Schmorl's nodes note d along the superior endplate of L5, L4 and L2 similar to the prior CT. SPINAL CANAL: No abn ormal developmental findings. BONE MARROW: No susp icious marrow-replacing process or new bone marrow edema. CONUS MEDULLARIS: Terminates at L2. Morphology and signal is normal. INTRADURAL NERVE SARAVANAN TS: Within normal limits. L5-S1: Normal annula r contour. Omxj-um-xmmndngq facet joint arthropathy right more than left without significant canal or neural foraminal stenosis unchanged. L4-L5: Concentric di sc osteophyte complex has developed since previous exam at this level w ith mild flattening of the ventral dural sac. Mild ligamentum flavum thickening has developed. There is mild facet joint arthropathy bilatera lly stable in appearance without significant canal or neural foraminal stenosis. L3-L4: Focally retro pulsed superior endplate of the compressed L4 vertebral body resul ts in mild flattening of the ventral dural sac. No interval change. Underlying mild disc bulging slightly encroaches on the foramina bilater ally unchanged. No significant canal or neural foraminal stenosis. L2-L3: Normal annula r contour. Mild facet joint hypertrophic changes bilaterally. No cecy l or foraminal stenosis. L1-L2: Mild retropul sepideh of the superior endplate of L2 with mild indentation of the v entral thecal sac since the previous MRI. No significant facet nicholas int arthrosis, canal or neural foraminal stenosis. T12-L1: Normal annul ar contour. No facet joint arthrosis, canal or neural foraminal stenosis. T11-T12: Normal erlin lar contour. No facet joint arthrosis, canal or neural foraminal stenosis. T10-T11: Retropulsed superior endplate of T11 with mild flattening of the ventral dural sa c without cord impingement or canal stenosis. No significant foramina l stenosis. PARAVERTEBRAL AND IN CLUDED EXTRASPINAL SOFT TISSUES: Mildly prominent tubular cystic-appea ring structure in the aortocaval interval and retrocaval region at the L1-L2 level, not definitely seen on previous exam but could refle ct a dilated venous structure. Otherwise the visualized paraverte bral soft tissues are unremarkable. There are a few simple-appearing cor tical cysts in the upper and lower poles of the left kidney and late ral cortex of the interpolar segment of the right kidney. Limited evaluation. No specific follow up recommended based on the current ACR Best Practice Guidelines. M R/MR lumbar spine wo con IMPRESSION: 1. Multiple chronic, healed compression fractures of the lumbar and lower thoracic spine as described above with no significant interval change from previous CT with no significant spinal canal or neural foraminal stenosis. 2. Multilevel bilate ral facet joint arthropathy as described above, with disc bulging an d disc osteophyte complex at L3-L4 and L4-L5 respectively without significant spinal canal or neural foraminal stenosis. 3. Discogenic degene rative changes primarily at L1-L2, L3-L4 and L4-L5 as discussed above w ithout significant spinal canal or neural foraminal stenosis. 4. Status post verte bral augmentation at T10 and T11 with no definite recurrent marrow eliza ma to suggest that these are not healed. Note that T10 is only partiall y visualized. There is mild retropulsion of the superior endplate of T11 without spinal cord impingement and there is mild gibbus angulati on at T10-T11 similar to the previous MRI. 5. Probable dilated venous structure in the retroperitoneal region at the L1-L2 level whic h is a new finding since the previous exam, of indeterminate significance. Electronically camille d by: Samir Melton MD 11/17/2024 02:16 PM [facility] Dictated By: WILLY MELTON MD Signed By: <Hemant salter signed by SAMIR MELTON MD in OV> 11/17/24 1416 DD/ 0743 TD/TT: 10/19/24 0830 Coppersmith Apprentice: US abdomen complete Reviewed date:12/07/2024 12:24:06 PM Interpretation: Performing Lab: Notes/Report: [address] [address] Ultrasound Report Signed Patient: Javi Smith MR#: [id number] 8 : 1985 Acct:[id number] Age/Sex: 39 / M ADM Date: 10/26/24 Loc: HO.US Attending Dr: Alfonso Sierra MD Ordering Physician: Alfonso Sierra MD Date of Service: 10/26/24 Procedure(s): US abdomen complete Accession Number(s): [id number] cc: Alfonso Sierra MD; Lacho Mendez MD EXAMINATION: US ABDOMEN COMPLETE CLINICAL INFORMATION: [...] by: Gail Baca MD 12/07/2024 05:54 AM EST Dictated By: Gail Baca MD Signed By: <Electronically signed by Gail Baca MD in OV> 12/07/24 0554 DD/ 7 TD/TT: 10/26/249[address] Co[employer] Apprentice: [place] [address] Ultrasound Report Signed Patient: Javi Smith MR#: [id number] 8 : 1985 Acct:[id number] Age/Sex: 39 / M ADM Date: 10/26/24 Loc: HO.US Attending Dr: Alfonso Sierra MD Ordering Physician: Alfonso Sierra MD Date of Service: 10/26/24 Procedure(s): US abd omen complete Accession Number(s): [id number] cc: Alfonso Sierra MD; Lacho Mendez MD EXAMINATION: US ABDOMEN COMPLETE CLINICAL INFORMATION: Cholangitis. COMPARISON: CT abdomen and pelvi s of 04/01/2024, ultrasound abdomen 03/28/2024 TECHNIQUE: Real-time imaging of the abdominal viscera. Limited visualizatio n due to bowel gas. FINDINGS: PANCREAS: Limited visualization of pancreatic tail and head. Imaged portion of pancreati c body is unremarkable. ABDOMINAL AORTA: Enriquez ited visualization of the abdominal aorta. Imaged portions of the abdo piotr aorta are within normal limits in caliber. [...] Gallbladder appears moderately distended. COMMON BILE DUCT: No rmal in caliber measuring 0.2 cm in diameter. RIGHT KIDNEY: No hydronephrosis. No renal calculi. Limited visualization. Limited visualizatio n of the kidney with possible malrotation. The kidney measures 10.1 cm in maximum dimension. LEFT KIDNEY: No hydronephrosis. No renal calculi. Limited visualization. The kidney measures 10.4 cm in maximum dimension. SPLEEN: The spleen measures 11.3 cm in maximum dimension. FREE FLUID: None. U S/US abdomen complete IMPRESSION: 1. Redemonstration o f echogenic portal triads which can be associated with primary scleros ing cholangitis. There appears to be some subtle nodularity to the he patic contour. Hepatic echotexture is mildly heterogeneous. Corre lation with liver function tests and clinical exam recommended to deter mine further management. 2. A 0.7 cm gallston e. Gallbladder wall thickness of 0.2 cm. Gallbladder appears moderately distended. Electronically camille d by: Gail Baca MD 12/07/2024 05:54 AM EST Dictated By: Gail Baca MD Signed By: <Electron ically signed by Gail Baca MD in OV> 12/07/24 0554 DD/ 7 TD/TT: 10/26/249[address] Coppersmith Apprentice: Complete Blood Count Man Dif Reviewed date:12/14/2024 12:40:12 PM Interpretation: Performing Lab:[facility], [address] [place] [phone] Notes/Report: White Blood Count 5.3 4.8-10.8 X10*3/uL Red Blood Count 5.22 4.60-5.80 X10*6/uL Hemoglobin 16.3 14.0-18.0 g/dl Hematocrit 47.0 42.0-52.0 % Mean Corpuscular Volume 90.0 80.0-98.0 fL Mean Corpuscular Hemoglobin 31.2 27.0-33.0 pg Mean Corpuscular HGB Conc 34.7 31.0-36.0 g/dl Red Cell Distribution Width 13.0 11.0-16.0 % Platelet Count 275 160-400 X10*3/uL Mean Platelet Volume 10.4 9.4-12.4 fL NRBC Pct Auto 0.0 0.0-0.2 /100WBC NRBC Abs Auto 0.000 0.0-0.012 X10*3/uL Neutrophils Percent Manual 67 45-73 % Band Neutrophils Percent 2 3-5 % Lymphocytes Percent Manual 17 20-40 % Monocytes Percent Manual 8 2-11 % Eosinophils Percent Manual 4 0-4 % Basophils Percent Manual 2 0-2 % Neutrophils Absolute Manual 3.7 2.0-8.3 X10*3/uL Lymphocytes Absolute Manual 0.9 1.2-4.9 X10*3/uL Monocytes Absolute Manual 0.4 0.1-1. 2 X10*3/uL Eosinophils Absolute Manual 0.2 0.0-0.4 X10*3/uL Basophils Abs Manual 0.1 0.0-0.2 X10*3/uL Platelet Estimate NORMAL NORMAL Platelet Morphology Comment NORMAL RBC Morphology NORMAL Prothrombin Time INR Reviewed date:12/13/2024 05:15:51 PM Interpretation: Performing Lab:[facility], [address] [place] [phone] Notes/Report: Prothrombin Time 11.2 10.9-12.4 SEC INTERNATIONAL NORM RATIO 1.0 0.9-1.1 INTERNATIONAL [...] 2.5 - 3.5 Partial Thromboplastin Time Reviewed date:12/13/2024 05:15:01 PM Interpretation: Performing Lab:[facility], [address] [place] [phone] Notes/Report: Partial Thromboplastin Time 38.5 26.0-36.8 SEC For information regarding the monitoring of direct thrombin inhibitors, please refer to Pharmacy. Protein C Activity Reflex Ag Reviewed date:12/30/2024 04:16:23 PM Interpretation: Performing Lab:[facility], [address] [place] [phone] Notes/Report: Protein C Activity 141 70-180 % normal THIS TEST WAS PERFORMED AT: [employer]/[address] [address] DYAN TUCKER MD,PHD Protein C Antigen Add TNP Protein C Antigen TNP Protein S Activity reflex Ag Reviewed date:12/30/2024 04:16:13 PM Interpretation: Performing Lab:[facility], [address] [place] [phone] Notes/Report: Protein S Activity rflx Tot Fr 84 70-150 % normal THIS TEST WAS PERFORMED AT: [employer]/[address] DYAN TUCKER MD,PHD Protein S Total (Antigenic) TNP Protein S Free Antigen TNP Anti-Thrombin III Antigen Reviewed date:12/30/2024 04:16:01 PM Interpretation: Performing Lab:[facility], [address] [place] [phone] Notes/Report: Anti-Thrombin III Antigen 125 80-120 % normal THIS TEST WAS PERFORMED AT: [employer]/[address] DYAN TUCKER MD,PHD Factor V Leiden Reviewed date:12/30/2024 04:15:48 PM Interpretation: Performing Lab:[facility], [address] [place] [phone] Notes/Report: Factor V Leiden NEGATIVE FACTOR V LEI DEN (R506Q) VARIANT NOT DETECTED Factor V Leiden Interpretation See Below INTERPRETATION: This individual is negative (normal) for the Factor V Leiden (R506Q) variant in the Factor V gene. Increased risk of thrombophilia can be caused by a variety of genetic and non-genetic factors not screened for by this assay. Laboratory testing supervised and results monitored by Temo Hernandez, Ph.D., [facility], [facility], [facility]. VARIANT ANALYSIS: The Factor V Leiden (R506Q) variant [NM_000130.2:c.1601G >A (p.R534Q)] in the Factor V gene is one of the most common causes of inherited thrombophilia. This variant causes resistance to degradation of activated Factor V protein by activated Protein C (APC). The Factor V Leiden (R506Q) variant is detected by amplification of the selected region of the Factor V gene by polymerase chain reaction (PCR) and fluorescent probe hybridization to the targeted region, followed by end-point analysis with a real time PCR system. Although rare, false positive or false negative results may occur. All results should be interpreted in context of clinical findings, relevant history, and other laboratory data. Health care providers, please contact your local [employer] genetic counselor or call [phone] ([phone]) for assistance with interpretation of these results. This test was developed and its analytical performance characteristics have been determined by [employer] [facility]. It has not been cleared or approved by the FDA. This assay has been validated pursuant to the CLIA regulations and is used for clinical purposes. THIS TEST WAS PERFORMED AT: [employer]/[facility] [address] [place] [address] RUBINA OWENS MD,PHD,LATANYA Prothrombin 87761N Reviewed date:12/30/2024 04:15:39 PM Interpretation: Performing Lab:[facility], [address] [place] [phone] Notes/Report: Prothrombin 28287N NEGATIVE RESULT: G [id number] VARIANT NOT DETECTED [id number] See Below INTERPRETATION: This individual is negative (normal) for the [id number] variant in the Prothrombin/Factor II gene. Increased risk of thrombophilia can be caused by a variety of genetic and non-genetic factors not screened for by this assay. Laboratory testing supervised and results monitored by Temo Hernandez, Ph.D., [facility], [facility], [facility]. The M72623V mutation [[id number]: g.18302H>A (c.*97G>A)] in the Prothrombin/Factor II gene is the second most common inherited risk factor for thrombosis occurring in approximately 2% of Caucasians. Presence of the mutation is associated with an elevation of prothrombin levels to about 30% above normal in heterozygotes and to 70% above normal in homozygotes. Prothrombin (A21483X) mutations are detected by amplification of their selected gene regions by polymerase chain reaction (PCR) and fluorescent probe hybridization to the targeted region, followed by melting curve analysis with a real time PCR system. Although rare, false positive or false negative results may occur. All results should be interpreted in context of clinical findings, relevant history, and other laboratory data. Health care providers, please contact your local [employer] genetic counselor or call [phone] ([phone]) for assistance with interpretation of these results. This test was developed and its analytical performance characteristics have been determined by [employer] [facility]. It has not been cleared or approved by the FDA. This assay has been validated pursuant to the CLIA regulations and is used for clinical purposes. THIS TEST WAS PERFORMED AT: [employer]/[facility] [address] [place] [address] RUBINA OWENS MD,PHD,LATANYA Lupus Anticoagulant Panel Reviewed date:12/30/2024 04:15:31 PM Interpretation: Performing Lab:[address] [address] Notes/Report: Lupus Interpretation see note A Lupus Anticoagulant is not detected. Reference Range: Not Detected For additional information, please refer to http://education.[employer]/fa q/RTX00b5 (This link is being provided for informational/ educational purposes only.) This interpretation is based on the following test results. PTT (LAC) Screen 35 <=40 sec DRVVT Screen 36 <=45 sec THIS TEST WAS PERFORMED AT: [employer] [address] DYAN TUCKER MD,PHD DRVVT Confirmation TNP DRVVT 1:1 Mix TNP DRVVT 1:1 Mix Interpretation TNP Hexagonal Phase Neutralization TNP Thrombin Clotting Time TNP Comprehensive Met. Panel Reviewed date:12/13/2024 05:12:10 PM Interpretation: Performing Lab:[facility], [address] [place] [phone] Notes/Report: Sodium 139 135-145 mmol/L Potassium 4.4 3.3-5.1 mmol/L Chloride 102 96-108 mmol/L Carbon Dioxide 26 22-29 mmol/L Anion Gap 15 12-20 Blood Urea Nitrogen 16 9-16 mg/dL Creatinine 0.64 0.5-1.4 mg/dL Creatinine [...] Estimated GFR < 15 mL/min/1.73m2 Glucose Random 79 60-115 mg/dL Calcium 10.0 8.4-10.2 mg/dL Bilirubin Total 1.2 0.0-1.0 mg/dL Aspartate Amino Transferase 87 5-37 U/L Alanine Aminotransferase 115 0-40 U/L Total Protein 9.2 6.5-8.0 g/dL Albumin Level 4.7 3.5-5.0 g/dL Alkaline Phosphatase 276 39-117 U/L D Dimer High Sensitivity Reviewed date:12/13/2024 05:13:25 PM Interpretation: Performing Lab:[facility], [address] [place] [phone] Notes/Report: D Dimer High Sensitivity 217 D-DIMER HS REFERENCE RANGE Note: Our assay reports D-Dimer Units (D-DU). The cut-off value for venous thromboembolic (VTE) disease is 230 ng/mL. This value has a very high negative predictive value when the patient has a low to moderate clinical probability of VTE. The upper limit of normal is 243 ng/mL. Factor V Leiden Reviewed date:12/30/2024 04:15:09 PM Interpretation: Performing Lab:[facility], [address] [place] [phone] Notes/Report: Factor V Leiden NEGATIVE FACTOR V LEI DEN (R506Q) VARIANT NOT DETECTED Factor V Leiden Interpretation See Below INTERPRETATION: This individual is negative (normal) for the Factor V Leiden (R506Q) variant in the Factor V gene. Increased risk of thrombophilia can be caused by a variety of genetic and non-genetic factors not screened for by this assay. Laboratory testing supervised and results monitored by Temo Hernandez, Ph.D., [facility], [facility], [facility]. VARIANT ANALYSIS: The Factor V Leiden (R506Q) variant [NM_000130.2:c.1601G >A (p.R534Q)] in the Factor V gene is one of the most common causes of inherited thrombophilia. This variant causes resistance to degradation of activated Factor V protein by activated Protein C (APC). The Factor V Leiden (R506Q) variant is detected by amplification of the selected region of the Factor V gene by polymerase chain reaction (PCR) and fluorescent probe hybridization to the targeted region, followed by end-point analysis with a real time PCR system. Although rare, false positive or false negative results may occur. All results should be interpreted in context of clinical findings, relevant history, and other laboratory data. Health care providers, please contact your local [employer] genetic counselor or call [employer] ([phone]) for assistance with interpretation of these results. This test was developed and its analytical performance characteristics have been determined by [employer] [facility]. It has not been cleared or approved by the FDA. This assay has been validated pursuant to the CLIA regulations and is used for clinical purposes. THIS TEST WAS PERFORMED AT: [employer] [facility] [address] [place] [address] RUBINA OWENS MD,PHD,LATANYA Reason For Referral Reason increased ammonia le alis Diagnosis 1 Increased ammonia le alis (R79.89) Referral Organization Alfonso Sierra MD Referring Provider First Name Alfonso Referring Provider Last Name Rigo Referring Provider Speciality Internal M edicine Referred Provider Lacho Mendez Referred Provider Specialty Gastroentero logy General Notes Oumou Hale 02:44:51 PM EDT > info faxedGeoffrey Annette 04/27/2024 03:06:54 PM EDT > patient is aware of appt Wilder Patti A 05/13/2024 02:28:38 PM EDT > OFFICE NOTES RECD Referral Priority Routine Referral Appointment Date 04/29/2024 Reason Seizures Abnormal EE G Diagnosis 1 Seizure disorder (G4 0.909) Referral Organization Alfonso Sierra MD Referring Provider First Name Alfonso Referring Provider Last Name Rigo Referring Provider Speciality Internal M edicine Referred Provider Julien Galo Referred Provider Specialty Neurology General Notes Oumou Hale 12:01:11 PM EDT > info faxed Geoffrey Annette 07/22/2024 01:16:13 PM EDT > called patient with info and mailed Wilder anderson Patti A 09/23/2024 10:08:15 AM EST > NOTTES RECD Referral Priority Routine Referral Appointment Date 09/21/2024 Reason acute saddle pulmona ry embolism without [...] Referral Priority Routine Referral Appointment Date 12/14/2024 Medications Medication SIG (Take, Route, Fr equency, [...] Lialda 1.2 GM as directed Orally Active Immunizations Vaccine Route Administration Date Status [...] Fluarix Quadrivalent - 150 Unknown 09/09/2024 Refused Social History Tobacco Use: Social History Observation Description Date Details (start date - stop date) Never Smoker NA - NA Tobacco Use/Smoking Question Answer Notes Patient is a nonsmoker Additional Findings: Tobacco Non-User Cu rrent non-smoker, currently using no form of tobacco Alcohol Screen Question Answer Notes Did you have a drink containing alcohol in the p ast year? No Points 0 Interpretation Negative Problems Problem Type SNOMED Code ICD Code Onset Dates Problem Status W/U Status Risk Notes Problem Osteopetrosis (2020519) Osteopetrosis (Q78.2) Active confirmed Problem Ascites (455777082) Other ascites (R18.8) Active confirmed Problem 214513335 Seizure disorder (G40.909) Active confirmed Problem Ulcerative proctocolitis (812721018) 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 Problem 550226263060154 Acute saddle pulmonary embolism without acute cor pulmonale (I26.92) Active confirmed Problem 1256023 Clubbing of nail (R68.3) Active confirmed Problem 587128046 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 Problem 114041184 Compression fracture of thoracic vertebra with routine healing, unspecified thoracic vertebral level, subsequent encounter (S22.000D) Active confirmed Vital Signs Blood pressure diastolic 48 mm Hg 12/14/2024 Height 64 in 12/14/2024 Blood pressure systolic 92 mm Hg 12/14/2024 Weight 134 lbs 12/14/2024 BMI 23 kg/m2 12/14/2024 Encounters Encounter Location Date Provider Diagnosis Alfonso Sierra MD [address] [place] [address] [id number] 03/10/2025 Alfonso Sierra Blood tests for routine general physical examination Z00.00 and 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 Alfonso Sierra MD [address] [place] [address] [address] [id number] 03/11/2024 Alfonso Sierra Rising PSA level R97.20 ; Annual physical exam Z00.00 ; Compression fracture of thoracic vertebra with routine healing, unspecified thoracic vertebral level, subsequent encounter S22.000D and Depression screening Z13.31 Alfonso Sierra MD [address] [place] [address] [id number] 04/22/2024 Alfonso Sierra Other acute pulmonar y embolism without acute cor pulmonale I26.99 ; Increased ammonia level R79.89 ; Osteopetrosis Q78.2 and Compression fracture of thoracic vertebra with routine healing, unspecified thoracic vertebral level, subsequent encounter S22.000D Alfonso Sierra MD [address] [place] [address] Drive [address] [place] [address] [id number] 05/04/2024 Alfonso Sierra History of pneumonia Z87.01 ; Seizure disorder G40.909 and Acute saddle pulmonary embolism without acute cor pulmonale I26.92 Alfonso Sierra MD [address] [place] [address] [id number] 05/20/2024 Alfonso Sierra Compression fracture of thoracic vertebra with routine healing, unspecified thoracic vertebral level, subsequent encounter S22.000D ; Osteopetrosis Q78.2 ; Acute saddle pulmonary embolism without acute cor pulmonale I26.92 and Seizure disorder G40.909 Alfonso Sierra MD [address] [place] [address] [id number] 06/24/2024 Alfonso Sierra Acute saddle pulmonary embolism without acute cor pulmonale I26.92 and Compression fracture of thoracic vertebra with routine healing, unspecified thoracic vertebral level, subsequent encounter S22.000D Alfonso Sierra MD [address] [place] [address] [id number] 09/09/2024 Alfonso Sierra Seizure disorder G40.909 Alfonso Sierra MD [address] [place] [address] [id number] 10/14/2024 Alfonso Sierra Seizure disorder G40.909 ; 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 and Other ascites R18.8 Alfonso Sierra MD [address] [place] [address] [id number] 11/16/2024 Alfonso Sierra Acute saddle pulmonary embolism without acute cor pulmonale I26.92 Alfonso Sierra MD [address] [place] [address] [id number] 12/14/2024 Alfonso Sierra 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 ; Osteopetrosis Q78.2 and Compression fracture of thoracic vertebra with routine healing, unspecified thoracic vertebral level, subsequent encounter S22.000D Alfonso Sierra MD [address] [place] [address] [id number] 04/06/2024 Alfonso Sierra MD [address] [place] [address] [id number] 04/29/2024 Alfonso Sierra Back pain M54.9 Alfonso Sierra MD [address] [place] [address] [id number] 04/29/2024 Alfonso Sierra MD [address] [place] [address] [id number] 04/29/2024 Alfonso Sierra MD [address] [place] [address] [id number] 05/17/2024 Alfonso Sierra Acute saddle pulmonary embolism without acute cor pulmonale I26.92 Alfonso Sierra MD [address] [place] [address] [id number] 06/03/2024 Alfonso Sierra Back pain M54.9 Alfonso Sierra MD [address] [place] [address] [id number] 08/17/2024 Alfonso Sierra MD [address] [place] [address] [id number] 09/14/2024 Alfonso Sierra Acute saddle pulmonary embolism without acute cor pulmonale I26.92 Alfonso Sierra MD [address] [place] [address] [id number] 10/07/2024 Alfonso Sierra MD [address] [place] [address] [id number] 10/11/2024 Alfonso Sierra MD [address] [place] [address] [id number] 10/15/2024 Alfonso Sierra 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 and Other ascites R18.8 Assessments Encounter Date Diagnosis (ICD Code) Assessment Notes Treatment Notes Treatment Clinical Notes Section Notes 03/10/2025 Blood tests for routine general physical examination (ICD-10 - Z00.00) 03/11/2024 Rising PSA level (ICD-10 - R97.20) pending additional labs 03/11/2024 Annual physical exam (ICD-10 - Z00.00) labs reviewed and discussed with patient 04/22/2024 Other acute pulmonary embolism without acute cor pulmonale (ICD-10 - I26.99) has recovered 04/22/2024 Increased ammonia level (ICD-10 - R79.89) was back to normal needs referral to dr mendez 05/04/2024 History of pneumonia (ICD-10 - Z87.01) is scheduled for repeat cxr 05/04/2024 Seizure disorder (ICD-10 - G40.909) pending diagnostic testing/ order faxed to [facility] de[facility] 05/20/2024 Compression fracture of thoracic vertebra with routine healing, unspecified thoracic vertebral level, subsequent encounter (ICD-10 - S22.000D) will allow him to go back to work without lifting 05/20/2024 Osteopetrosis (ICD-10 - Q78.2) 06/24/2024 Acute saddle pulmonary embolism without acute cor pulmonale (ICD-10 - I26.92) will keep anticoagulants for 6 montn 06/24/2024 Compression fracture of thoracic vertebra with routine healing, unspecified thoracic vertebral level, subsequent encounter (ICD-10 - S22.000D) going to start forteo 09/09/2024 Seizure disorder (ICD-10 - G40.909) patient had an abnormal eeg. is going to see neurology in 2 weeks. will probably need mri of brain. if neurology doesn't order i will do it 10/14/2024 Seizure disorder (ICD-10 - G40.909) just started keheather/ going to see dr chatman 10/14/2024 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) will goe us of abdomen to see if there is ascites, pending diagnostic testing 11/16/2024 Acute saddle pulmonary embolism without acute cor pulmonale (ICD-10 - I26.92) has been on eliquis for 7 months for a blood clot that was induced by bed rest. yojana get hematology consult before stopping the eliquis 12/14/2024 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) stable 05/17/2024 Acute saddle pulmonary embolism without acute cor pulmonale (ICD-10 - I26.92) 09/14/2024 Acute saddle pulmonary embolism without acute cor pulmonale (ICD-10 - I26.92) 03/10/2025 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) 03/11/2024 Compression fracture of thoracic vertebra with routine healing, unspecified thoracic vertebral level, subsequent encounter (ICD-10 - S22.000D) is doing well at present. no running 04/22/2024 Osteopetrosis (ICD-10 - Q78.2) to get to endocrine/ appt being worked on 05/04/2024 Acute saddle pulmonary embolism without acute cor pulmonale (ICD-10 - I26.92) if we had to stop the eliquis would need a filter 05/20/2024 Acute saddle pulmonary embolism without acute cor pulmonale (ICD-10 - I26.92) will need to stay of blood thinners for 6 months 12/14/2024 Osteopetrosis (ICD-10 - Q78.2) on forteo. dr dean is following 04/29/2024 Back pain (ICD-10 - M54.9) 06/03/2024 Back pain (ICD-10 - M54.9) order printed and to be picked up to be done before his 06-24-24 visit 10/15/2024 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) 03/11/2024 Depression screening (ICD-10 - Z13.31) negative screen 04/22/2024 Compression fracture of thoracic vertebra with routine healing, unspecified thoracic vertebral level, subsequent encounter (ICD-10 - S22.000D) will start meds 05/20/2024 Seizure disorder (ICD-10 - G40.909) awaiting diagnostic study 12/14/2024 Compression fracture of thoracic vertebra with routine healing, unspecified thoracic vertebral level, subsequent encounter (ICD-10 - S22.000D) doing better with a little pain BONE DENSITY ORDER PRINTED AND PUT INTO FUTURE FOLDER 10/15/2024 Other ascites (ICD-10 - R18.8) 10/14/2024 Other ascites (ICD-10 - R18.8) Plan Of Treatment Pending Test Test Name Order Date US ABD 10/14/2024 Complete Blood Count Auto Diff 5 Comprehensive [place]. Panel Fast 5 Lipid Panel 03/10/2025 US abdomen complete 10/15/2024 XR chest 2V 04/29/2024 XR chest 2V 06/03/2024 EEG awake and asleep 05/04/2024 UA [employer]+Micro w/rflx Cult 03/10/2025 Next Appt Details Provider Name:Alfonso martinez, 03/17/2025 11:00:00 AM, [address] [place] [address], [address], [place], [place], [id number], Insurance Providers Payer Name Payer Address Payer Phone Subscriber Number Group Number Insured Name Patient Relationship to Insured Coverage Start Date Coverage End Date [facility] [address] [address] [place] [address] [id number] Javi Smith Self - patient is the insured [facility] [place] [facility] OFFICE [address] [place] [address] [id number] Javi Smith Self - patient is the insured Medical (General) History Medical History History ICD Code 04/30/2019 - colonoscopy by Dr. Mendez : Clonoscopy 12/10/22 pending path daquan pierre
--- OUTSIDE RECORDS SUMMARY | 2025-03-10 10:35 | XMS_ITS ---
Author Organization [facility] Address [address] [place] [address] Care Team Providers Care Facilities Supervisor Name Role Phone Rigo CHUNG, Alfonso Primary Care Provider Lacho Zhou Jr Unavailable [phone] Allergies No Known Allergies Results Component Value Reference Range Notes Liver Fibrosis Pnl Reviewed date:05/21/2024 07:37:30 AM Interpretation: Performing Lab:[facility], [address] [place] [phone] Notes/Report: Liver Fibrosis Score 0.42 Liver Fibrosis [...] a>0.62 and a<=1.00 : A3 (severe activity) IKF-Oywjb-1-Macroglobulin 171 106-279 mg/dL FIB-Haptoglobin 136 43-212 mg/dL FIB-Apolipoprotein A1 110 94-176 mg/dL FIB-Total Bilirubin 1.0 0.2-1.2 mg/dL FIB-GGT 130 3-90 U/L FIB-ALT 107 9-46 U/L Reference ID [id number] Footnote SEE NOTE The reliability of results is dependent on compliance with the preanalytical and analytical conditions recommended by [employer]. The tests have to be deferred for: [...] The performance characteristics have been determined by [employer], [place]. It has not been cleared or approved by the U.S. Food and Drug Administration. Performance characteristics refer to the analytical performance of the test. [employer], the associated logo, Bday and all associated [employer] carson are the registered trademarks of [employer]. All third green party carson - (R) and (TM) - are the property of their respective owners. (C) 4279-1899 [employer]. All rights reserved. THIS TEST WAS PERFORMED AT: [employer] [facility] [address] [place] [address] RUBINA OWENS MD,PHD,LATANYA REASON FOR VISIT Patient presents today for a HOSPITAL F/U Medications Medication SIG (Take, Route, Frequency, Duration) [...] Gabapentin 100 MG TAKE 1 CAPSULE BY [facility] 3 TIMES A DAY Oral for 30 Active Vital Signs Temperature 98.0 degrees Fahrenheit 05/10/20 24 Blood pressure systolic 000 mm Hg 05/10/20 24 Blood pressure diastolic 00 mm Hg 024 Height 65.50 in 05/10/2024 Weight 125 lb 6 oz lbs 05/10/2024 BMI 20.54 kg/m2 05/10/2024 Encounters Encounter Location Date Provider Diagnosis [facility] [address] [place] [address] 05/10/2024 Lacho Eagle Jr Sclerosing cholangitis K83.09 and Ulcerative pancolitis without complication K51.00 Assessments Encounter Date Diagnosis (ICD Code) Assessment Notes Treatment Notes Treatment Clinical Notes Section Notes 05/10/2024 Sclerosing cholangitis (ICD-10 - K83.09) Liver disease - resources material was printed He appears stable with respect to his sclerosing cholangitis and colitis. He will continue his present medical regimen. Followup laboratory testing will be arranged. He is up-to-date on imaging have CT scanning was done during his hospitalization which showed his liver to be normal. We reviewed this today. 05/10/2024 Ulcerative pancolitis without complication (ICD-10 - K51.00) He appears stabl e with respect to his sclerosing cholangitis and colitis. He will continue his present medical regimen. Followup laboratory testing will be arranged. He is up-to-date on imaging have CT scanning was done during his hospitalization which showed his liver to be normal. We reviewed this today. Plan Of Treatment Treatment Notes Assessment Notes Sclerosing cholangitis Liver disease - r esources material was printed Pending Test Test Name Order Date LIVER PROFILE 05/10/2024 AMMONIA 05/10/2024 Next Appt Details Follow Up: 1 Year, Reason: Provider Name:Lacho Escudero shantel Francois, 03/23/2025 09:40:00 AM, [address], [address], [place], [address], Progress Notes * GEORGE PATINO DDOB:1985 (39 yo M)Acc No.[id number]:05/10/2024 Progress Notes Patient:?GEORGE PATINO Provider:?Lacho Eagle MD :1985???Age:39 Y???Sex:Male Americo e:05/10/2024 Address:[address] [place], [place] [id number] Pcp:Alfonso Sierra MD Subjective: * Chief Complaints: * ???1. Patient presents today for a HOSPITAL F/U. * HPI: ???New symptom(s):? George is a 39-year-old man seen today in followup. He was hospitalized earlier this year with back pain. He was found to have compression fractures and osteoporosis. During his hospitalization he was noted to have an elevated ammonia level of unclear etiology. This had normalized by his discharge. There was also a question of underlying seizures. ?He reports no symptoms relating to his colitis or sclerosing cholangitis. He has no jaundice, pruritus, or fatigue and reports bowel movements are normal. * Medical History:?Primary scl erosing cholangitis, ulcerative colitis, diagnosis 08/11, current treatment Lialda, colonoscopy 12/26, no active colitis on biopsies, three-year followup, Spinal fractures surgery february 04, 2023, Pulmonary embolus. * Surgical History:?Right ingu inal herniorrhaphy 04/2017, spinal fracures 02/2023. * Family History:?Father: dece ased.?Mother: alive.? no known hx of colon cancer polyps or liver ds. * Social History:?Tobacco Use:?Tobacco Use/Smoking?Are you a: nonsmoker.?Drugs/Alcohol:?Alcohol Screen?Points: 0, Interpretation: Negative.?Miscellaneous:?Marital status: single. Occupation: [employer] * Medications:?Taking Eliquis 5 MG Tablet 1 tablet Orally Twice a day, Taking Ursodiol 250 MG Tablet one tablet Orally 4 times a day, Taking Lialda 1.2 GM Tablet Delayed Release 2 tablets Orally Once a day, Taking Gabapentin 100 MG Capsule TAKE 1 CAPSULE BY MOUTH 3 TIMES A DAY Oral , Taking Alendronate Sodium 70 MG Tablet Oral , Medication List reviewed and reconciled with the patient * Allergies:?N.K.D.A. Objective: * Vitals:?Wt: 125 lb 6 oz, Ht: 65.50 in, BMI:20.54 Index, BP: 000/00 mm Hg, Temp: 98.0. * Examination: ???General Examination: ???Examination today, he appears well. Skin is anicteric. Lungs are clear. Heart shows a regular rate and rhythm. Abdomen is soft and nontender. He is wearing a back brace. Assessment: * Assessment: 1.?Sclerosing cholangitis - K83.09 (Primary)?2.?Ulcerative pancolitis without complication - K51.00? He appears stable with respe ct to his sclerosing cholangitis and colitis. He will continue his present medical regimen. Followup laboratory testing will be arranged. He is up-to-date on imaging have CT scanning was done during his hospitalization which showed his liver to be normal. We reviewed this today. Plan: * Treatment: * Procedure Codes:?G9903 Pt sc rn tbco id as non user, G9745 DOC RSN FOR NOT SCREEN/REC F/U HBP * Follow Up:?1 Year * * Sign off status: Completed true * Provider:?Lacho Eagle MD Date:?0 05/10/2024 Generated for Kee rogel/Azeem/Lynette on:?03/10/2025 10:34 AM EDT History and Physical Notes * HPI (History of Present Illness) Category Sub-Category Detail Notes Category Not es New symptom(s) George is a 39-year-old man seen today in followup. He was hospitalized earlier this year with back pain. He was found to have compression fractures and osteoporosis. During his hospitalization he was noted to have an elevated ammonia level of unclear etiology. This had normalized by his discharge. There was also a question of underlying seizures. He reports no symptoms relating to his colitis or sclerosing cholangitis. He has no jaundice, pruritus, or fatigue and reports bowel movements are normal. Examination Category Sub-Category Detail Notes Category Not es General Examination Examinat ion today, he appears well. Skin is anicteric. Lungs are clear. Heart shows a regular rate and rhythm. Abdomen is soft and nontender. He is wearing a back brace.
--- OUTSIDE RECORDS SUMMARY | 2025-03-10 10:35 | XMS_ITS | Clinical Summary ---
Author Organization [facility] Address [address] [place] [address] Phone Care Team Providers Care Help Desk Administrator Name Role Phone Physician, Pcp Unknown Primary Care Provider Magaly vailable Encounters Date Type Department Care Team Description 01/06/2025 10:50 AM EST - 01/06/2025 11:59 PM EST Hospital Encounter [facility] [address] [place] [phone] Discharge Disposition: Home or Self Care 01/05/2025 11:00 AM EST - 01/05/2025 11:59 PM EST Hospital Encounter [facility] [address] [place] [phone] Discharge Disposition: Home or Self Care 01/04/2025 9:52 AM EST - 01/04/2025 11:59 PM EST Hospital Encounter [facility] [address] [place] [phone] Discharge Disposition: Home or Self Care from Last 3 Months Social History Tobacco Use Types Packs/Day Years Used Date Smoking Tobacco: Never Assessed Sex and Gender Information Value Date Recorded Sex Assigned at Male 01/03/2025 9:19 AM EST Legal Sex Male 5:29 PM EST Gender Identity Male 01/03/2025 9:19 AM EST Sexual Orientation Straight 01/03/2025 9: 19 AM EST Plan of Treatment Health Maintenance Due Date Last Done Comments DTaP,Tdap,and Td Vaccines (1 - Tdap) 2006 Hepatitis A Vaccines (1 of 2 - Risk 2-dose series) 2006 Hepatitis B Vaccines (1 of 3 - 19+ 3-dose series) 2006 COVID-19 Vaccine (2023-2 5 season) 2024 11/20/2021, 03/29/2021, 03/01/2021 Cholesterol Screening (Lipid Panel) 10/11/2024 Depression Screening 10/11/2024 HIV Screening 10/11/2024 Hepatitis C Screening 10/11/2024 Social Influencers of Health Screening 10/11/2024 Influenza Vaccine (Season Ended) 2025 HIB Vaccines Aged Out No longer eligi [...] patient's age to complete this topic Meningococcal B Vaccine Aged Out No l onger eligible based on patient's age to complete this topic Pneumococcal Vaccine: Pediatrics (0 to 5 Years) and At-Risk Patients (6 to 64 Years) Aged Out No longer eligible b ased on patient's age to complete this topic RSV Immunization Patients Under 20 months Aged Out No longer eligible b ased on patient's age to complete this topic Varicella Vaccines Aged Out No longer eligible based on patient's age to complete this topic Procedures Procedure Name Priority Date/Time Associated Diagnosis Comments CONTINUOUS EEG Routine 01/06/2025 11:05 AM EST Epilepsy, unspecified, not intractable, without status epilepticus ([facility] V24, CMS/[facility] V28) CONTINUOUS EEG Routine 01/05/2025 11:36 AM EST Epilepsy, unspecified, not intractable, without status epilepticus (CMS/HCC V24, CMS/HCC V28) CONTINUOUS EEG Routine 01/04/2025 10:58 AM EST Epilepsy, unspecified, not intractable, without status epilepticus (CMS/HCC V24, CMS/HCC V28) from Last 3 Months Results * Continuous EEG (01/06/2025 11:05 AM EST) Narrative Julien Galo MD - 02/07/2025 2:55 PM EDT See report of 01/04/25 Julien Galo MD NEUROLOGY ORDERABLES Migdalia l Result * Continuous EEG (01/05/2025 11:36 AM EST) Narrative Julien Galo MD - 02/07/2025 2:55 PM EDT See report of 01/04/25 Julien Galo MD NEUROLOGY ORDERABLES Migdalia l Result * Continuous EEG (01/04/2025 10:58 AM EST) Narrative Julien Galo MD - 02/07/2025 2:54 PM EDT A digital EEG was performed using the standard international 10-20 electrode placement and single channel EKG lead. Montages: Standard 10-20 system montages Type of Study: 48 hour ambulatory EEG Video Recording: No Conditions of Recording: ??Awake - Drowsy - Sleep Description: This is a 48 hour ambulatory EEG. The waking background activity consists of a 10 Hz. well defined high voltage posterior alpha frequency intermixed anteriorly with low voltage fast frequencies. Drowsiness is characterized by diffuse theta slowing. During sleep symmetrical fronto-central sleep spindles, vertex sharp transients and K complexes develop. During stage IV of sleep there is generalized delta slowing. Arousals are unremarkable. Interpretation: This 48 hour ambulatory EEG is considered within normal limits. Julien Galo MD NEUROLOGY ORDERABLES Migdalia l Result from Last 3 Months Insurance [facility] Care Teams Help Desk Administrator Relationship Specialty Start Date End Date Physician, Pcp Unknown PCP - General 01/03/25
== END 2025-03-10 09:47 | disposition home or self-care (01) ==
LOC: HO.LNP 09:46
PROVIDERS: Visit Provider Internal Medicine
DX: Z00.00 Encounter for general adult medical examination without abnormal findings (principal); K83.01 Primary sclerosing cholangitis
CPT/HCPCS: 80053; 80061; 81001; 85025

== ENCOUNTER 2025-04-28 14:13 | Outpatient (REF) | payer OTHER, SELFPAY ==
--- NOTE | ~2025-04-28 | US_ITS ---
EXAMINATION: US TRIPLEX LOWER EXTREMITY, LEFT CLINICAL INFORMATION: Follow-up left lower extremity DVT COMPARISON: April 01, 2023 TECHNIQUE: Color-flow triplex imaging with spectral analysis and compression Doppler were performed on the left lower extremity. FINDINGS: Respiratory variation, normal compression and augmented flow are noted throughout the left lower extremity. The visualized common femoral vein, superficial femoral vein, profunda femoral vein, popliteal vein and midcalf peroneal and posterior tibial venous segments show no evidence of deep venous thrombosis. There is no Arias's cyst. US/US venous duplex LE LT IMPRESSION: No evidence of deep venous thrombosis involving the left lower extremity. Electronically signed by: Anton Dyson MD 04/28/2025 03:15 PM EDT
== END 2025-04-28 14:14 | disposition home or self-care (01) ==
LOC: HO.US 14:13
PROVIDERS: PCP Internal Medicine; Visit Provider Nurse Practitioner Family
DX: I82.402 Acute embolism and thrombosis of unspecified deep veins of left lower extremity (principal)
CPT/HCPCS: 93971

== ENCOUNTER → 2025-04-28 14:18 | Outpatient (BNV) | payer OTHER, SELFPAY | PROVIDERS: PCP Internal Medicine; Visit Provider Radiology Diagnostic Radiology | DX: I82.409 Acute embolism and thrombosis of unspecified deep veins of unspecified lower extremity (principal) | CPT/HCPCS: 93971 ==

== ENCOUNTER → 2025-06-07 10:44 | Outpatient (BNVA) | payer OTHER, SELFPAY | PROVIDERS: PCP Internal Medicine; Visit Provider Internal Medicine Endocrinology, Diabetes & Metabolism | DX: M80.88XA Other osteoporosis with current pathological fracture, vertebra(e), initial encounter for fracture (principal) | CPT/HCPCS: 99212 ==

== ENCOUNTER → 2025-06-07 10:44 | Outpatient (AMB) | payer OTHER, SELFPAY ==
--- OUTSIDE RECORDS SUMMARY | 2024-04-29 09:35 | XMS_ITS ---
Author Organization [facility] Address [address] [place] [address] Care Team Providers Care Senior Materials Scientist Name Role Phone Alfonso Sierra MD Primary Care Provider Lacho Zhou Jr [phone] REASON FOR VISIT elevated ammonia level Encounters Encounter Location Date Provider Diagnosis [facility] [address] [facility] [address] [place] [phone] 04/29/2024 Lacho Eagle Jr Plan Of Treatment Next Appt Details Provider Name:Lacho funes Jr, 06/30/2025 02:15:00 PM, [address] [facility], [address], [place], [address], Progress Notes * GEORGE PATINO DDOB:1985 (40 yo M)Acc No.[id number]:04/29/2024 Progress Notes Patient: GEORGE CHILDRESS Rubi Provider: Isaak Eagle MD :1985 A ge:39 Y S ex:Male Date:04/29/2024 Address:[address] [place] [address] Pcp:Alfonso Sierra MD Subjective: * Chief Complaints: [...] 0 04/29/2024 Generated for Kee rogel/Azeem/Lynette on: 0 06/07/2025 11:26 AM EDT
--- OUTSIDE RECORDS SUMMARY | 2025-03-24 07:42 | XMS_ITS ---
Author Organization Alfonso Sierra MD Address 10 [facility] [address] [place] [phone] Care Team Providers Care Auto Damage Insurance Appraiser Name Role Phone Alfonso Sierra Primary Care Provider REASON FOR VISIT Bone Density is due Encounters Encounter Location Date Provider Diagnosis Alfonso Sierra MD 10 [facility] [address] [place] [phone] 03/24/2025 Alfonso Sierra Plan Of Treatment Next Appt Details Provider Name:Alfonso martinez, 09/15/2025 10:45:00 AM, [address] [place] [address], [address], [phone], Provider Name:Alfonso martinez, 03/14/2026 07:30:00 AM, [address] [place] [address], [address], [phone], Provider Name:Alfonso martinez, 03/21/2026 10:30:00 AM, [address] [place] [address], [address], [phone], Progress Notes * Javi SMITH DDOB:1985 (40 yo M)Acc No.[id number]:03/24/2025 Patient: Josr GEORGEYAIMAJavi :1985 A ge:40 Y S ex:Male Address:[address] [place] [address] [place] [id number] * * Date:
--- NOTE | 2025-06-07 10:53 | MHC.OFFVIS ---
Vital Signs 06/07/25 10:54 Height 5 ft 1.97 in Weight 126 lb 8.725 oz BMI 23.2 BP 96/64 Blood Pressure Location Rt brachial Position Sitting Pulse 66 Pulse Source Pulse Oximeter Pulse Oximetry (%) 97 Oxygen Delivery Method Room Air Intake Visit Reasons: Osteoporosis Intake Note: Patient present today for Osteoporosis follow up. Dirt Bike Racer Required: No Accompanied by: Self / Same As Patient Allergies No Known Allergies Allergy (Verified 06/07/25 10:55) Medication List - Last Reconciled 06/07/25 by Marcial Tran MD apixaban (Eliquis) 5 mg PO BID Forteo (teriparatide) 20 mcg (0.08 mL) subcut DAILY NS levetiracetam (Keppra) 1,000 mg PO BID mesalamine (Lialda) 2.4 grams PO DAILY ursodiol 250 mg PO QID HPI Comments Details: 39 YO M is seen in consultation at the request of PCP for Osteoporosis. First diagnosed in vertebral fx in 12/2023 . Received treatment in the past with 1 dose , in March 2024 Tolerated treatment well without complication. history of pathologic fracture as above or ONJ. Has several servings of dietary calcium per day in the form of cheese, milk . Not Takes Calcium supplement . Not Takess of Vitamin D daily. Denies ever using PPI, + anticoagulant/has PE , antiepileptic /gabapentin but no glucocorticoid medication. Does weight bearing exercise 2 days per week in the form of physical therapy . Fracture history: As above Height loss: No Denies history of Kidney stones: Denies family history of Osteoporosis or hip fracture. UTD on dental cleanings and sees dentist every 6 months. No planned upcoming dental work or extractions. DXA dated : Performed at [facility] showed a T-score of -5.0 in the lumbar spine Labs: No loss of libido On Forteo 20 mcg q.d. since June 2024. No fractures since last visit. Tolerating Forteo. Prior MRI showed vertebral fracture was healing The patient is a 40-year-old male presenting with osteoporosis. The patient has been on Forteo for about a year, with no fractures reported since the last visit. The treatment plan includes continuing Forteo for another year to maintain bone density. The patient has a history of vertebral fractures, specifically at T10, T11, and L5, which are currently healing. No acute fractures were noted on the recent MRI, and the fractures are healing as expected. The patient has been advised to engage in light weightlifting and running as part of his exercise regimen. He is advised to avoid lifting heavy weights to prevent further fractures. - Forteo: Taken for osteoporosis management for about a year, with good tolerance and no adverse effects reported. - Calcium and Vitamin D: Taken as supplements to support bone health. - Forteo: Taken for osteoporosis management for about a year, with good tolerance and no adverse effects reported. - Calcium and Vitamin D: Taken as supplements to support bone health. [facility] Medical History Compression fx, lumbar spine Compression fracture of thoracic spine, non-traumatic Thoracic back pain Collapsed vertebra, not elsewhere classified, site unspecified, initial encounter for fracture Lumbar compression fracture Thoracic compression fracture Abdominal distension Bacteremia Ulcerative colitis Primary sclerosing cholangitis Surgical History History of hand surgery H/O right inguinal hernia repair H/O colonoscopy Family History Mother Breast cancer Lung cancer Osteoporosis Psoriatic arthritis Father No problems noted. Social History Household Members: Family Household Members Other:: Parents. Housing: House Do you presently have visiting nurse or other home services: No Patient Tobacco Use Status: Never used Tobacco Advance Directives Date on File: 04/07/24 Current occupational status: employed Gender identity: Male Physical Exam Vital Signs: Last Vital Signs Pulse 66 06/07/25 10:54 BP 96/64 06/07/25 10:54 Pulse Ox 97 06/07/25 10:54 Oxygen Delivery Method Room Air 06/07/25 10:54 BMI result Body Mass Index 23.2 Assessment & Plan Assessment & Plan (1) Osteoporotic compression fracture of vertebra: Code(s): M80.88XA - Other osteoporosis with current pathological fracture, vertebra(e), initial encounter for fracture Category: Medical Plan: This is a 39-year-old white male with a history of multiple vertebral compression fractures severe osteoporosis with secondary workup essentially negative. He is being treated with Forteo for the past 12 months Plan is to continue the Forteo for full 2 years. We will then transition the patient to anti resorptive therapy in 06/2026 1. Osteoporosis The patient will continue Forteo for another year to enhance bone density. A follow-up bone density scan is scheduled for January 2026 to assess the treatment's effectiveness. The patient is advised to maintain a regimen of light weightlifting and running to support bone health, while avoiding heavy lifting to prevent further fractures. I discussed with the patient the continuation of Forteo for another year to improve bone density and the importance of a follow-up bone density scan in January 2026. We also talked about the benefits of light weightlifting and running for bone health, and the need to avoid heavy lifting to prevent further fractures. - Continue taking Forteo as prescribed for osteoporosis. - Engage in light weightlifting and running to support bone health. - Avoid lifting heavy weights to prevent further fractures. - Follow up for a bone density scan in January 2026. The patient was counseled to achieve a target A1C of 7% (154 avg). Fasting blood sugars should be 90-130 in the morning and less than 180 two hours after meals. Reviewed the relationship between poor diabetic control and the development of complications. Check your feet daily looking for any signs of infection, drainage, redness, ulceration and seek medical attention if this occurs. Break in shoes gradually and do not wear open-toed shoes or walk stocking footed or barefooted. The patient had an opportunity to ask questions regarding treatment plan. The patient expressed understanding and agreement with the above treatment plan. Patient was informed and verbally consented to the use of an ambient scribe for clinic note documentation during this visit. Orders: Orders XR DEXA axial skeleton 7 Months M80.88XA - Other osteoporosis with current pathological fracture, vertebra(e), initial encounter for fracture Medications: Refilled Forteo (teriparatide) 20 mcg (0.08 mL) subcut DAILY 2.4 mL 11RF NS M81.0 - Age-related osteoporosis without current pathological fracture Coding Level of Care Code Est Pt Level 3 (64090) Diagnoses Osteoporotic compression fracture of vertebra M80.88XA
[2025-06-07 10:54] VITALS: BP 96/64; PULSE 66; O2SAT 97; BMI 23.2
--- OUTSIDE RECORDS SUMMARY | 2025-06-07 11:26 | XMS_ITS | Clinical Summary ---
Author Organization [facility] Address [address] [place] [phone] Phone Care Team Providers Care Auto Body Repairer Name Role Phone Alfonso Sierra MD Primary Care Provider Social History Tobacco Use Types Packs/Day Years Used Date Smoking Tobacco: Never Assessed Education Answer Date Recorded Are you interested in more education? Not on dashawn e 01/15/2024 Are you concerned about learning? Not on file 01/15/2024 No 01/15/2024 No 01/15/2024 Digital Access Answer Date Recorded No 01/15/2024 No 01/15/2024 Reliable internet access at home? Not on file 01/15/2024 Device with a working camera? Not on file Sex and Gender Information Value Date Recorded Sex Assigned at Male 06/09/2024 2:21 PM EDT Legal Sex Male 2:12 PM EDT Gender Identity Male 06/09/2024 2:21 PM EDT Sexual Orientation Straight 06/09/2024 2: 21 PM EDT Plan of Treatment Health Maintenance Due Date Last Done Comments Adult Td,Tdap Booster 1985 LIPID PANEL 1987 DEPRESSION SCREENING 1999 SMOKING Hx and SMOKELESS TOB ACCO SCREENING 01/23/2000 HEPATITIS C SCREENING 2005 HIV ONE-TIME SCREENING (18-6 5 YEARS) 2005 COVID-19 VACCINE (2023-2 5 season) 2024 HEPATITIS A VACCINES Aged Out No long er eligible based on patient's age to complete this topic HIB VACCINES Aged Out No longer eligi ble based on patient's age to complete this topic MENINGOCOCCAL VACCINES (ACWY) Aged Out No longer eligible based on patient's age to complete this topic MENINGOCOCCAL VACCINES (B) Aged Out N o longer eligible based on patient's age to complete this topic PNEUMOCOCCAL VACCINES (0-49 years) Aged Out No longer eligible based on patient's age to complete this topic Medical Devices Not on file Insurance [employer] [facility] Local [employer] [facility] [employer] Local [employer] [facility] Care Teams Auto Body Repairer Relationship Specialty Start Date End Date Alfonso Sierra MD [address] [place] [address] [place] [address] PCP - General 01/13/24 Additional Source Comments The information contained in this document represents components of the legal health record. It is not the complete legal health record.[facility]
--- OUTSIDE RECORDS SUMMARY | 2025-06-07 11:26 | XMS_ITS | Clinical Summary ---
Author Organization [facility] Address [address] [place] [phone] Phone Care Team Providers Care Animal Herder Name Role Phone Physician, Pcp Unknown Primary Care Provider Magaly vailable Social History Tobacco Use Types Packs/Day Years [...] Vaccine ( - 2023-2 5 season) 2024 11/20/2021, 03/29/2021, 03/01/2021 Cholesterol Screening (Lipid Panel) 10/11/2024 HIV Screening 10/11/2024 Hepatitis C Screening 10/11/2024 Social Influencers of Health Screening 10/11/2024 Depression Screening 11/03/2024 Influenza Vaccine (#1) 2025 HIB Vaccines Aged Out No longer [...] 5 Years) and At-Risk Patients (6 to 49 Years) Aged Out No longer eligible b ased on patient's age to complete this topic RSV Immunization Patients Under 20 months Aged Out No longer eligible b ased on patient's age to complete this topic Varicella Vaccines Aged Out No longer eligible based on patient's age to complete this topic Insurance [facility] Care Teams Animal Herder Relationship Specialty Start Date End Date Physician, Pcp Unknown PCP - General 01/03/25
== END ==
PROVIDERS: PCP Internal Medicine; Visit Provider Internal Medicine Endocrinology, Diabetes & Metabolism
DX: M80.88XA Other osteoporosis with current pathological fracture, vertebra(e), initial encounter for fracture (principal)
CPT/HCPCS: 99213

== ENCOUNTER 2025-08-19 14:19 | Outpatient (REF) | payer OTHER, SELFPAY ==
--- OUTSIDE RECORDS SUMMARY | 2024-04-29 09:35 | XMS_ITS ---
Author Organization [facility] Address [address] [place] [address] Care Team Providers Care Manager Safe Name Role Phone Alfonso Sierra MD Primary Care Provider Lacho Zhou Jr [phone] REASON FOR VISIT elevated ammonia level Encounters Encounter Location Date Provider Diagnosis [facility] [address] [facility] [address] [place] [phone] 04/29/2024 Lacho Eagle Jr Plan Of Treatment Next Appt Details Provider Name:Lacho funes Jr, 06/29/2026 02:35:00 PM, [address] [facility], [address], [place], [address], Progress Notes * GEORGE PATINO DDOB:1985 (40 yo M)Acc No.[id number]:04/29/2024 Progress Notes Patient: GEORGE CHILDRESS Rubi Provider: Isaak Eagle MD :1985 A ge:39 Y S ex:Male Date:04/29/2024 Address:[address] [place] [address] Pcp:Alfonso Sierra MD Subjective: * Chief Complaints: * 1 . Elevated ammonia level. * Medical History: Objective: * Vitals: Assessment: Plan: * Treatment: * * The named appointment provid er may or may not be the originator of this progress note, and it is not deemed complete until electronically signed by the appointment provider. Sign off status: Pending * Provider: Isaak Eagle MD Date: 0 04/29/2024 Generated for Kee rogel/Azeem/Lynette on: 1 04:51 PM EDT
--- OUTSIDE RECORDS SUMMARY | 2024-10-11 08:05 | XMS_ITS ---
Author Organization Alfonso Sierra MD Address [address] [place] [phone] Care Team Providers Care Service Rig Operator Name Role Phone Alfonso Sierra Primary Care Provider REASON FOR VISIT FYI CT chest Encounters Encounter Location Date Provider Diagnosis Alfonso Sierra MD [address] [facility] [address] [place] [phone] 10/11/2024 Alfonso Sierra Plan Of Treatment Next Appt Details Provider Name:Alfonso martinez, 09/15/2025 10:45:00 AM, [address] [place] [address], [address] [place] [address], [phone], Provider Name:Alfonso martinez, 03/14/2026 07:30:00 AM, [address] [place] [address], [address], [phone], Provider Name:Alfonso martinez, 03/21/2026 10:30:00 AM, [address] [place] [address], [address], [phone], Progress Notes * Javi SMITH DDOB:1985 (39 yo M)Acc No.[id number]:10/11/2024 Patient: Javi Cr :1985 A ge:39 Y S ex:Male Address:[address] [place] [phone] * true * Date: Generated for Kee rogel/Azeem/Juanitting on: 04:51 PM EDT
--- OUTSIDE RECORDS SUMMARY | 2024-10-14 07:30 | XMS_ITS ---
Author Organization Alfonso Sierra MD Address [address] [place] [phone] Care Team Providers Care Winder Contort Operator Name Role Phone Alfonso Sierra Primary Care Provider [phone] Allergies No Known Allergies REASON FOR VISIT [...] Status W/U Status Risk Notes Problem Ascites (734468057) Other ascites (R18.8) Active confirmed Vital Signs Blood pressure systolic 82 mm Hg 10/14/20 24 Blood pressure diastolic 58 mm Hg 024 Height 64 in 10/14/2024 Weight 127 lbs 10/14/2024 BMI 21.80 kg/m2 10/14/2024 Encounters Encounter Location Date Provider Diagnosis Alfonso Sierra MD [address] [place] [phone] 10/14/2024 Alfonso Sierra Seizure disorder G40.909 ; [...] Reason: Provider Name:Alfonso martinez, 09/15/2025 10:45:00 AM, [address] [place] [address], [address], [phone], Provider Name:Alfonso martinez, 03/14/2026 07:30:00 AM, [address] [place] [address], [phone], Provider Name:Alfonso martinez, 03/21/2026 10:30:00 AM, [address] [place] [address], [phone], Progress Notes * Javi SMITH DDOB:1985 (39 yo M)Acc No.[id number]:10/14/2024 Progress Notes Patient: Josr Javi talley Provider: Yoon Sierra MD :1985 A ge:39 Y S ex:Male Date:10/14/2024 Address:[address] [place] [address] [place], [phone] Subjective: * Chief Complaints: * F /U [...] true * Provider: Yoon Sierra MD Date: 1 12/15/2023 Generated for Kee rogel/Azeem/Juanitting on: 1 04:50 PM EDT History and Physical Notes * [...]
--- OUTSIDE RECORDS SUMMARY | 2024-10-15 08:53 | XMS_ITS ---
Author Organization Alfonso Sierra MD Address [address] [place] [phone] Care Team Providers Care Assistant Manager Bilingual Name Role Phone Alfonso Sierra Primary Care Provider REASON FOR VISIT Abd US orders Encounters Encounter Location Date Provider Diagnosis Alfonso Sierra MD [address] [facility] [address] [place] [phone] 10/15/2024 Alfonso Sierra 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 and Other ascites R18.8 Assessments Encounter Date Diagnosis (ICD Code) Assessment Notes Treatment Notes Treatment Clinical Notes Section Notes 10/15/2024 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) 10/15/2024 Other ascites (ICD-10 - R18.8) Plan Of Treatment Pending Test Test Name Order Date US abdomen complete 10/15/2024 Next Appt Details Provider Name:Alfonso martinez, 09/15/2025 10:45:00 AM, [address] [facility], Suite [facility], [place], [place], [phone], Provider Name:Alfonso martinez, 03/14/2026 07:30:00 AM, [address], [address], [place], [phone], Provider Name:Alfonso Avendano ier, 03/21/2026 10:30:00 AM, [address], [address], [place], [phone], Progress Notes * Javi SMITH DDOB:1985 (39 yo M)Acc No.[id number]:10/15/2024 Patient: Josr teresajeff Javi Venegas :1985 A ge:39 Y S ex:Male Address:[address] [place] [phone] Subjective: * Chief Complaints: * A bd US orders * Medical History: * Surgical History: * Hospitalization/Major Diagno stic Procedure: * Medications: Objective: Assessment: * Assessment: 1. P rimary sclerosing cholangitis - K83.01 2 . O ther ascites - R18.8 Plan: * Treatment: 2.?Other ascites?Imaging: US abdomen complete* [facility] * Procedure Codes: * true * Date: Generated for Kee rogel/Azeem/Westsmitting on: 04:52 PM EDT
--- OUTSIDE RECORDS SUMMARY | 2024-11-16 04:15 | XMS_ITS ---
Author Organization Alfonso Sierra MD Address [address] [place] [id number] Care Team Providers Care Railroad Engineer Name Role Phone Alfonso Sierra Primary Care Provider Allergies No Known Allergies Reason For Referral Reason acute saddle pulmona ry embolism without acute cor pulmonale Diagnosis 1 Acute saddle pulmona ry embolism without acute cor pulmonale (I26.92) Referral Organization Alfonso Sierra MD Referring Provider First Name Alfonso Referring Provider Last Name Rigo Referring Provider Speciality Internal M edicine Referred Provider Mariah Ivy Referred Provider Specialty Oncology General Notes Oumou Hale 0 11/16/2024 08:43:08 AM > info faxed, Oumou Hale 12/06/2024 07:27:57 AM > info mailed to patient Referral Priority Routine Referral Appointment Date 12/14/2024 REASON FOR VISIT 4 week Medications Medication SIG (Take, Route, Fr equency, Duration) Notes Start Date End Date Status Eliquis 5 MG 1 tablet Orally Twic e a day for 90 days Active Keppra 1000 MG 1 tablet Orally ever y 12 hrs for 30 day(s) Active Forteo 600 MCG/2.4ML as directed Subcutaneous Active Ursodiol 250 MG as directed Orally qid Active Lialda 1.2 GM as directed Orally Active Vital Signs Blood pressure systolic 92 mm Hg 11/16/19 25 Blood pressure diastolic 56 mm Hg 025 Height 64 in 11/16/2024 Weight 132 lbs 11/16/2024 BMI 22.66 kg/m2 11/16/2024 weight is up 5 pounds since 10-14-24 Encounters Encounter Location Date Provider Diagnosis Alfonso Sierra MD [address] [place] [address] [place] [id number] 11/16/2024 Alfonso Sierra Acute saddle pulmonary embolism without acute cor pulmonale I26.92 Assessments Encounter Date Diagnosis (ICD Code) Assessment Notes Treatment Notes Treatment Clinical Notes Section Notes 11/16/2024 Acute saddle pulmonary embolism without acute cor pulmonale (ICD-10 - I26.92) has been on eliquis for 7 months for a blood clot that was induced by bed rest. yojana get hematology consult before stopping the eliquis Plan Of Treatment Treatment Notes Assessment Notes Acute saddle pulmonary embol ism without acute cor pulmonale has been on eliquis for 7 months for a blood clot that was induced by bed rest. yojana get hematology consult before stopping the eliquis Referrals Referral Date Details 11/16/2024 11/16/2024, acute sa ddle pulmonary embolism without acute cor pulmonale, Mariah Ivy Next Appt Details Follow Up: 4 Weeks, Reason: Provider Name:Alfonso Avendano ier, 09/15/2025 10:45:00 AM, [address] [place] [address], [address] [place] [address], [phone], Provider Name:Alfonso Avendano ier, 03/14/2026 07:30:00 AM, [address] [place] [address], [address], [phone], Provider Name:Alfonso Avendano ieclari, 03/21/2026 10:30:00 AM, [address] [place] [address], [address], [phone], Progress Notes * Javi SMITH DDOB:1985 (39 yo M)Acc No.[id number]:11/16/2024 Progress Notes Patient: Javi Cr Provider: Yoon Sierra MD :1985 A ge:39 Y S ex:Male Date:11/16/2024 Address:[address] [place], [place] [phone] Subjective: * Chief Complaints: * 4 week * HPI: S ymptom(s): patient is a 39 yo male here for 4 week follow up visit, waiting for next surgery. hurts sometimes. can't run until osteoporosis is in check. * ROS: G eneral/Constitutional: Denies C hills. D enies F atigue. D enies F ever. D enies H eadache. E NT: Patient denies d ecreased sense of smell , any loss of taste , sore throat. D enies S ore throat. G astrointestinal: Denies D iarrhea. D enies [...] Verified] Objective: * Vitals: H t: 64, Wt:132, BMI:22.66, BP:92/56 weight is up 5 pounds since 10-14-24. * Examination: G eneral Examination: GENERAL APPEARANCE: a lert, well hydrated, in no distress.? HEAD: n ormocephalic. HEART: n o murmurs, rubs, gallops , regular rate and rhythm. LUNGS: n o wheezes, rales, rhonchi , good air movement , clear to auscultation bilaterally. Assessment: * Assessment: 1. A cute saddle pulmonary embolism without acute cor pulmonale - I26.92 Plan: * Treatment: * Procedure Codes: * Follow Up: 4 Weeks * * Sign off status: Completed true * Provider: Yoon Sierra MD Date: 0 11/16/2024 Generated for Kee rogel/Azeem/Juanitting on: 1 04:51 PM EDT History and Physical Notes * HPI (History of Present Illness) Category Sub-Category Detail Notes Category Not es Symptom(s) patient is a 39 yo male here for 4 week follow up visit, waiting for next surgery. hurts sometimes. can't run until osteoporosis is in check Examination Category Sub-Category Detail Notes Category Not es General Examination GENERAL APPEARANCE: alert, w ell hydrated, in no distress HEAD: normocephalic HEART: no murmurs, rubs, ga llops , regular rate and rhythm LUNGS: no wheezes, rales, r honchi , good air movement , clear to auscultation bilaterally Consultation Request Notes Referral Date Referring Provider Referred Provider Not es 11/16/2024 Alfonso Sierra Zubeena acute sa ddle pulmonary embolism without acute cor pulmonale
--- OUTSIDE RECORDS SUMMARY | 2024-12-14 04:45 | XMS_ITS ---
Author Organization Alfonso Sierra MD Address [address] [place] [phone] Care Team Providers Care Side Seam Envelope Machine Operator Name Role Phone Alfonso Sierra Primary Care Provider Allergies No Known Allergies REASON FOR VISIT 1 month Medications Medication SIG (Take, Route, Fr equency, [...] Signs Blood pressure systolic 92 mm Hg 12/14/19 25 Blood pressure diastolic 48 mm Hg 025 Height 64 in 12/14/2024 Weight 134 lbs 12/14/2024 BMI 23 kg/m2 12/14/2024 Encounters Encounter Location Date Provider Diagnosis Alfonso Sierra MD [address] [place] [phone] 12/14/2024 Alfonso Sierra 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 ; Osteopetrosis Q78.2 and Compression fracture of thoracic vertebra with routine healing, unspecified thoracic vertebral level, subsequent encounter S22.000D Assessments Encounter Date Diagnosis (ICD Code) Assessment Notes Treatment Notes Treatment Clinical Notes Section Notes 12/14/2024 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) stable 12/14/2024 Osteopetrosis (ICD-10 - Q78.2) [facility] following 12/14/2024 Compression fracture of thoracic vertebra with routine healing, unspecified thoracic vertebral level, subsequent encounter (ICD-10 - S22.000D) doing better with a little pain BONE DENSITY ORDER PRINTED AND PUT INTO FUTURE FOLDER Plan Of Treatment Treatment Notes Assessment Notes Primary sclerosing cholangitis stable Osteopetrosis on [facility]. dr dean is following Compression fracture of thor acic vertebra with routine healing, unspecified thoracic vertebral level, subsequent encounter doing better with a little pain Future Test Test Name Order Date BONE DENSITY DEXA 04/13/2025 Next Appt Details Provider Name:Alfonso martinez, 09/15/2025 10:45:00 AM, [address] [place] [address], [address], [phone], Provider Name:Alfonso martinez, 03/14/2026 07:30:00 AM, [address] [place] [address], [address], [phone], Provider Name:Alfonso martinez, 03/21/2026 10:30:00 AM, [address] [place] [address], [address], [phone], Progress Notes * Javi SMITH DDOB:1985 (39 yo M)Acc No.[id number]:12/14/2024 Progress Notes Patient: Javi CHILDRESS Provider: Yoon Sierra MD :1985 A ge:39 Y S ex:Male Date:12/14/2024 Address:[address] [place], [place] [phone] Subjective: * Chief Complaints: * 1 month * HPI: S ymptom(s): patient is a 39 yo male here for one month follow up visit, is seeing pain management. * ROS: G eneral/Constitutional: Denies C hills. D enies F atigue. D enies F ever. D enies H eadache. E NT: Patient denies d ecreased sense of smell, any loss of taste, sore throat. D enies S ore throat. [...] MG Tablet 1 tablet Orally every 12 hrs Forteo 600 MCG/2.4ML Solution Pen-injector as directed Subcutaneous Ursodiol 250 MG Tablet as directed Orally qid Lialda 1.2 GM Tablet Delayed Release as directed Orally Eliquis 5 MG Tablet 1 tablet Orally Twice a day Medication List reviewed and reconciled with the patientTaking Keppra 1000 MG Tablet 1 tablet Orally every 12 hrs Taking Forteo 600 MCG/2.4ML Solution Pen-injector as directed Subcutaneous Taking Ursodiol 250 MG Tablet as directed Orally qid Taking Lialda 1.2 GM Tablet Delayed Release as directed Orally Taking Eliquis 5 MG Tablet 1 tablet Orally Twice a day Medication List reviewed and reconciled with the patient * Allergies: N .K.D.A.yes[Allergies Verified] Objective: * Vitals: H t: 64, Wt: 134, BMI:23, BP:92/48, Wt-k.78. * Examination: G eneral Examination: GENERAL APPEARANCE: a lert, well hydrated, in no distress.? HEAD: n ormocephalic. SKIN: g ood turgor. HEART: n o murmurs, rubs, gallops, regular rate and rhythm.? LUNGS: n o wheezes, rales, rhonchi, good air movement, clear to auscultation bilaterally. Assessment: * Assessment: 1. P rimary sclerosing cholangitis - K83.01 (Primary) 2 . O steopetrosis - Q78.2 3 . C ompression fracture of thoracic vertebra with routine healing, unspecified thoracic vertebral level, subsequent encounter - S22.000D Plan: * Treatment: 2. O steopetrosis Notes: on [facility] dean is following 3. C ompression fracture of thoracic vertebra with routine healing, unspecified thoracic vertebral level, subsequent encounter I aide: BONE DENSITY DEXA (Ordered for 04/13/2025) Notes: doing better with a little pain Clinical Notes: BONE DENSITY ORDER PRINTED AND PUT INTO FUTURE FOLDER * Procedure Codes: * * Sign off status: Completed true * Provider: Yoon Sierra MD Date: 0 12/14/2024 Generated for Juan Ramoni juan f/Azeem/eTransmitting on: 1 04:52 PM EDT History and Physical Notes * HPI (History of Present Illness) Category Sub-Category Detail Notes Category Not es Symptom(s) patient is a 39 yo male here for one month follow up visit, is seeing pain management Examination Category Sub-Category Detail Notes Category Not es General Examination GENERAL APPEARANCE: alert, w ell hydrated, in no distress HEAD: normocephalic HEART: no murmurs, rubs, ga llops, regular rate and rhythm LUNGS: no wheezes, rales, r honchi, good air movement, clear to auscultation bilaterally SKIN: good turgor
--- OUTSIDE RECORDS SUMMARY | 2025-03-10 03:45 | XMS_ITS ---
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 Panel Fa st Reviewed date:03/10/2025 12:26:51 PM Interpretation: Performing Lab:[facility], [address] [place] [phone] Notes/Report: Sodium 138 135-145 mmol/L Potassium 4.5 [...] Panel Reviewed date:03/10/2025 12:28:40 PM Interpretation: Performing Lab:[facility], [address] [place] [phone] Notes/Report: Triglycerides 86 <150 mg/dL Desirable Triglyceride: [...] t Reviewed date:03/10/2025 12:37:42 PM Interpretation: Performing Lab:[facility], [address] [place] [phone] Notes/Report: Urine, Clean Catch Color Urine Dark Yellow Appearance Urine Clear PH 5.5 5.0-9.0 Glucose Urine UA Negative Negative mg/dL Urine Blood Negative Negative Specific [place] - Urine >= 1.030 1.005-1.025 Urine Protein [...] Date Provider Diagnosis Alfonso Sierra MD [address] [place] [address] Drive [address] [place], [place] [phone] 03/10/2025 Alfonso Sierra Blood tests for routine [...] 10:45:00 AM, [address], [address], [place], [place], [phone], Provider Name:Alfonso Avendano ier, 03/14/2026 07:30:00 AM, [address], [address], [place], [place], [phone], Provider Name:Alfonso Avendano ier, 03/21/2026 10:30:00 AM, [address], [address], [place], [place], [phone], Progress Notes * Javi SMITH DDOB:1985 (40 yo M)Acc No.[id number]:03/10/2025 Progress Note Patient: Javi CHILDRESS Rubi Provider: Yoon Sierra MD :1985 A ge:40 Y S ex:Male Date:03/10/2025 Address:[address] [place] [phone] Subjective: * Chief Complaints: * 1 . FASTING LABS. * Medical History: Objective: * Vitals: Assessment: * Assessment: 1. B lood tests for routine general physical examination - Z00.00 (Primary) 2 .?Primary sclerosing cholangitis - K83.01 Plan: * Treatment: 2. P rimary sclerosing cholangitis L AB: Complete Blood Count Auto Diff (Collection Date & Time - 03/10/2025 07:45 AM) L AB: Comprehensive [place]. Panel Fast (Collection Date & Time - [...] 03/10/2025 Generated for Kee rogel/Azeem/Lynette on: 1 04:51 PM EDT
--- OUTSIDE RECORDS SUMMARY | 2025-03-17 07:00 | XMS_ITS ---
Author Organization Alfonso Sierra MD Address [address] [place] [phone] Care Team Providers Care Continuity Clerk Name Role Phone Alfonso Sierra Primary Care Provider Allergies No Known Allergies REASON FOR VISIT ANNUAL EXAM Medications Medication SIG (Take, Route, Fr equency, Duration) Notes Start Date End Date Status Ursodiol 250 MG as directed Orally qid Active Lialda 1.2 GM as directed Orally Active Keppra 1000 MG 1 tablet Orally ever y 12 hrs for 30 day(s) Active Forteo 600 MCG/2.4ML as directed Subcutaneous Active Eliquis 5 MG 1 tablet Orally Twic e a day for 90 days Active Social History Tobacco Use: Social History Observation [...] ast year? No Points 0 Interpretation Negative Vital Signs Blood pressure systolic 80 mm Hg 03/17/20 25 Blood pressure diastolic 58 mm Hg 025 Height 64 in 03/17/2025 Weight 128 lbs 03/17/2025 BMI 21.97 kg/m2 03/17/2025 Encounters Encounter Location Date Provider Diagnosis Alfonso Sierra MD [address] [place] [address] [place] [phone] 03/17/2025 Alfonso Sierra Compression fracture of thoracic vertebra with routine healing, unspecified thoracic vertebral level, subsequent encounter S22.000D ; Annual physical exam Z00.00 ; Osteopetrosis Q78.2 ; Acute saddle pulmonary embolism without acute cor pulmonale I26.92 and Depression screening Z13.31 Assessments Encounter Date Diagnosis (ICD Code) Assessment Notes Treatment Notes Treatment Clinical Notes Section Notes 03/17/2025 Compression fracture of thoracic vertebra with routine healing, unspecified thoracic vertebral level, subsequent encounter (ICD-10 - S22.000D) has been doing well and not having any complaints 03/17/2025 Annual physical exam (ICD-10 - Z00.00) labs reviewed and discussed with patient 03/17/2025 Osteopetrosis (ICD-10 - Q78.2) followed by dr dean 03/17/2025 Acute saddle pulmonary embolism without acute cor pulmonale (ICD-10 - I26.92) saw hematology and they may be stopping the eliquis in 03/17/2025 Depression screening (ICD-10 - Z13.31) negative screen Plan Of Treatment Treatment Notes Assessment Notes Compression fracture of thor acic vertebra with routine healing, unspecified thoracic vertebral level, subsequent encounter has been doing well and not having any complaints Annual physical exam labs reviewed and d iscussed with patient Osteopetrosis followed by dr moose montague Acute saddle pulmonary embol ism without acute cor pulmonale saw hematology and they may be stopping the eliquis in april Depression screening negative screen Next Appt Details Follow Up: 6 Months, Reason: Provider Name:Alfonso martinez, 09/15/2025 10:45:00 AM, [address] [place] [address], [address] [place] [address], [phone], Provider Name:Alfonso martinez, 03/14/2026 07:30:00 AM, [address] [place] [address], Suite [facility], [place], [place], [phone], Provider Name:Alfonso Corina Avendano ier, 03/21/2026 10:30:00 AM, [address], [address], [place], [place], [phone], Progress Notes * Javi SMITH DDOB:1985 (40 yo M)Acc No.[id number]:03/17/2025 Progress Notes Patient: Javi CHILDRESS Provider: Yoon Sierra MD :1985 A ge:40 Y S ex:Male Date:03/17/2025 Address:[address] [place], [place] [phone] Subjective: * Chief Complaints: * A NNUAL EXAM * HPI: D epression Screening: PHQ-9 L ittle interest or pleasure in doing things N ot at all, F eeling down, depressed, or hopeless N ot at all, T rouble falling or staying asleep, or sleeping too much N ot at all, F eeling tired or having little energy N ot at all, P oor appetite or overeating N ot at all, F eeling bad about yourself or that you are a failure, or have let yourself or your family down N ot at all, T rouble concentrating on things, such as reading the newspaper or watching television N ot at all, M oving or speaking so slowly that other people could have noticed; or the opposite, being so fidgety or restless that you have been moving around a lot more than usual N ot at all, T houghts that you would be better off or of hurting yourself in some way N ot at all, T otal Score 0 . I nterpretation and Intervention D epression Screening Findings N egative, F ollow-Up for Depression : review of PHQ-9 found negative result, no follow-up needed. C ommunication Needs: Communication Needs D oes the patient have a hearing impairment N o, D oes the patient have a vision impairment? N o, D oes the patient have a cognition impairment? N o. S SHANITA Questions: SDOH Questions I n the past year have you been worried about losing housing? N o, I n the past year have you or any family members you live with been unable to get any of the following when it was really needed? Check all that apply: N one. S ymptom(s): patient is a 40 yo male here for annual visit with review of recent labs and follow up of chronic issues.. back is doing well. not running. * ROS: G eneral/Constitutional: Change in appetite d enies. C hills d enies. F ever d enies. O phthalmologic: Blurred vision d enies. D ischarge d enies. P ain d enies. E NT: Decreased hearing d enies. S ore throat d enies.?Swollen glands d enies. E ndocrine: Cold intolerance d enies. E xcessive thirst d enies. H eat intolerance d enies. W eight loss d enies. R espiratory: Cough d enies. S hortness of breath at rest d enies. S hortness of breath with exertion d enies. W heezing d enies. C ardiovascular: Chest pain at rest d enies. C hest pain with exertion?denies. I rregular heartbeat d enies. S hortness of breath d enies. ? G astrointestinal: Abdominal pain d enies. C hange in bowel habits d enies. D iarrhea d enies. N ausea d enies. R ectal bleeding d enies. V omiting d enies . G enitourinary: Blood in urine d enies. D ifficulty urinating d enies. F requent urination d enies. M usculoskeletal: Painful joints d enies. W eakness d enies. ? S kin: Dry skin d enies. I tching d enies. D enies?Mole(s), changes in moles, new moles or any lesions of concern. D enies P hotosensitivity. R darya d enies. N eurologic: Dizziness d enies. F ainting d enies. H eadache?denies. * Medical History: * Surgical History: * Hospitalization/Major Diagno stic Procedure: * Family History: F ather: 40 yrs. M other: alive 65 yrs. 1 brother(s) , 1 sister(s) . . Scuba diving accident Mother- healthy, No pertinent family medical history, Denies mental health/substance abuse family history, Denies mental health/substance abuse family history, Denies mental health/substance abuse family history, No pertinent family medical history. * Social History: T obacco Use: T obacco Use/Smoking P atient is a n onsmoker, A dditional Findings: Tobacco Non-User C urrent non-smoker, currently using no form of tobacco. D rugs/Alcohol: A lcohol Screen D id you have a drink containing alcohol in the past year? N o, P oints 0 , I nterpretation N egative. M iscellaneous: C affeine: yes, frequency:, 2-3 cups per day. Children: no. Community involvements: yes. Exercise: yes, walks 2 hours a day. Housing: living with relatives. Living with: family. Marital status: single. Occupation: works part-time at [employer]. Pets: none. Travel outside of the [place]: no. * Medications: T akingKeppra 1000 MG Tablet [...] Objective: * Vitals: H t: 64, Wt: 128, BMI:21.97, BP:80/58, Wt-k.06. * P ast Orders: L ab:UA ClnCatch+Micro w/rflx Cult (Order Date - 03/10/2025) (Collection Date & Time - 03/10/2025 07:45 AM) Value Reference Range Color Urine Dark Yellow - Appearance Urine Clear - PH 5.5 5.0-9.0 - Glucose Urine UA Negative Negative - mg/dL Urine Blood Negative Negative - Specific [place] - Urine >= 1.030 H 1.005-1.025 - Urine Protein Negative Neg-Trace - mg/dL Urine Ketones Trace Negative - mg/dL Nitrite Urine Negative Negative - Leukocyte Esterase Urine Trace A Negative - RBC Urine 0-2 0-2 - /HPF WBC Urine 0-5 0-5 - /HPF Squamous Epithelial Cell Urine 0-2 0-2 - /HP F Bacteria Urine None Seen None Seen - Hyaline Casts Urine 0-2 0-2 - /LPF L ab:Complete Blood Count Auto Diff (Order Date - 03/10/2025) (Collection Date & Time - 03/10/2025 07:45 AM) Value Reference Range White Blood Count 5.3 4.8-10.8 - X10*3/uL Red Blood Count 5.03 4.60-5.80 - X10*6/uL Hemoglobin 15.7 14.0-18.0 - g/dl Hematocrit 46.3 42.0-52.0 - % Mean Corpuscular Volume 92.0 80.0-98.0 - fL Mean Corpuscular Hemoglobin 31.2 27.0-33.0 - pg Mean Corpuscular HGB Conc 33.9 31.0-36.0 - g/ dl Red Cell Distribution Width 13.0 11.0-16.0 - % Platelet Count 255 160-400 - X10*3/uL Mean Platelet Volume 11.1 9.4-12.4 - fL Neutrophils Percent Auto 54.4 45-73 - % Imm Gran Pct Auto 0.2 0.0-0.4 - % Lymphocytes Percent Auto 24.5 20-40 - % Monocytes Percent Auto 13.4 H 2-11 - % Eosinophils Percent Auto 6.0 H 0-4 - % Basophils Percent Auto 1.5 0-2 - % NRBC Pct Auto 0.0 0.0-0.2 - /100WBC Neutrophils Absolute Auto 2.9 2.0-8.3 - x10* 3/uL Imm Gran Abs Auto 0.01 0.00-0.03 - X10*3/uL Lymphocytes Absolute Auto 1.3 1.2-4.9 - X10* 3/uL Monocytes Absolute Auto 0.7 0.1-1.2 - X10*3/ uL Eosinophils Absolute Auto 0.3 0.0-0.4 - X10* 3/uL Basophils Absolute Auto 0.1 0.0-0.2 - X10*3/ uL NRBC Abs Auto 0.000 0.0-0.012 - X10*3/uL L ab:Comprehensive [place]. Panel Fast (Order Date - 03/10/2025) (Collection Date & Time - 03/10/2025 07:45 AM) Value Reference Range Sodium 138 135-145 - mmol/L Bilirubin Total 2.0 H 0.0-1.0 - mg/dL Aspartate Amino Transferase 168 H 5-37 - U/L Alanine Aminotransferase 231 H 0-40 - U/L Total Protein 8.2 H 6.5-8.0 - g/dL Albumin Level 4.5 3.5-5.0 - g/dL Alkaline Phosphatase 294 H 39-117 - U/L Potassium 4.5 3.3-5.1 - mmol/L Chloride 101 96-108 - mmol/L Carbon Dioxide 28 22-29 - mmol/L Anion Gap 14 12-20 - Blood Urea Nitrogen 16 9-16 - mg/dL Creatinine 0.67 0.5-1.4 - mg/dL Estimated Glomerular Filt Rate > 60 - Glucose Fasting 87 60-99 - mg/dL Calcium 9.9 8.4-10.2 - mg/dL L ab:Lipid Panel (Order Date - 03/10/2025) (Collection Date & Time - 03/10/2025 07:45 AM) Value Reference Range Triglycerides 86 <150 - mg/dL Cholesterol 158 <200 - mg/dL LDL Cholesterol Calculated 107 H <100 - mg/dL HDL Cholesterol 34 L >40 - mg/dL * Examination: G eneral Examination: GENERAL APPEARANCE: w ell developed, well nourished, in no acute distress. HEAD: n ormocephalic, atraumatic. EYES: p upils equal, round, reactive to light and accommodation, sclera non-icteric. EARS: n ormal. ORAL CAVITY: m ucosa moist. THROAT: c lear. NECK/THYROID: n lance supple, full range of motion, no cervical lymphadenopathy, no bruits. SKIN: w arm and dry, no suspicious lesions. HEART: r egular rate and rhythm, S1, S2 normal, no murmurs.? LUNGS: c lear to auscultation bilaterally. ABDOMEN: s oft, nontender, nondistended, bowel sounds present, normal, no organomegaly , no masses palpable. RECTAL EXAM: d eclined. MALE GENITOURINARY: d eclined. EXTREMITIES: n o clubbing, cyanosis, or edema. NEUROLOGIC: n onfocal, motor strength normal upper and lower extremities, sensory exam intact. Assessment: * Assessment: 1. A nnual physical exam - Z00.00 (Primary) 2 . C ompression fracture of thoracic vertebra with routine healing, unspecified thoracic vertebral level, subsequent encounter - S22.000D 3 . O steopetrosis - Q78.2 4 . A cute saddle pulmonary embolism without acute cor pulmonale - I26.92 5 . D epression screening - Z13.31 Plan: * Treatment: 2. C ompression fracture of thoracic vertebra with routine healing, unspecified thoracic vertebral level, subsequent encounter Notes: has been doing well and not having any complaints 3. O steopetrosis Notes: followed by dr dean 4. A cute saddle pulmonary embolism without acute cor pulmonale Notes: saw hematology and they may be stopping the eliquis in april 5. D epression screening Notes: negative screen * Procedure Codes: * Follow Up: 6 Months * * Sign off status: Completed true * Provider: Yoon Sierra MD Date: 0 03/17/2025 Generated for Kee rogel/Azeem/Juanitting on: 1 04:52 PM EDT History and Physical Notes * HPI (History of Present Illness) Category Sub-Category Detail Notes Category Not es Symptom(s) patient is a 40 yo male here for annual visit with review of recent labs and follow up of chronic issues.. back is doing well. not running. Depression Screening PHQ-9 Little inte rest or pleasure in doing things: Not at all Feeling down, depressed, or hopeless: No t at all Trouble falling or staying asleep, or sl eeping too much: Not at all Feeling tired or having little energy: N ot at all Poor appetite or overeating: Not at all Feeling bad about yourself o r that you are a failure, or have let yourself or your family down: Not at all Trouble concentrating on thi ngs, such as reading the newspaper or watching television: Not at all Moving or speaking so slowly that other people could have noticed; or the opposite, being so fidgety or restless that you have been moving around a lot more than usual: Not at all Thoughts that you would be b wendy off or of hurting yourself in some way: Not at all Total Score: 0 Interpretation and Intervention Depression Jakob gomes Findings: Negative Follow-Up for Depression: : review of PH Q-9 found negative result, no follow-up needed SDOH Questions SDOH Questions In the past year have you been worried about losing housing?: No In the past year have you or any family members you live with been unable to get any of the following when it was really needed? Check all that apply:: None Communication Needs Communication Needs Does the patient have a hearing impairment: No Does the patient have a vision impairmen t?: No Does the patient have a cognition impair ment?: No Examination Category Sub-Category Detail Notes Category Not es General Examination GENERAL APPEARANCE: well dev eloped, well nourished, in no acute distress HEAD: normocephalic, atrau matic EYES: pupils equal, round, reactive to light and accommodation, sclera non-icteric EARS: normal THROAT: clear NECK/THYROID: neck supple, full ra nge of motion, no cervical lymphadenopathy, no bruits HEART: regular rate and rhy thm, S1, S2 normal, no murmurs LUNGS: clear to auscultatio n bilaterally ABDOMEN: soft, nontender, non distended, bowel sounds present, normal, no organomegaly , no masses palpable NEUROLOGIC: nonfocal, motor stre ngth normal upper and lower extremities, sensory exam intact SKIN: warm and dry, no chuy picious lesions EXTREMITIES: no clubbing, cyanosi s, or edema MALE GENITOURINARY: declined RECTAL EXAM: declined ORAL CAVITY: mucosa moist
--- OUTSIDE RECORDS SUMMARY | 2025-03-23 05:40 | XMS_ITS ---
Author Organization [facility] Address [address] [place] [address] Care Team Providers Care Global Engineering Manager Name Role Phone Alfonso Sierra MD Primary Care Provider Lacho Zhou Jr [phone] REASON FOR VISIT ulcerative colitis Encounters Encounter Location Date Provider Diagnosis [facility] [address] [facility] [address] [place] [phone] 03/23/2025 Lacho Eagle Jr Plan Of Treatment Next Appt Details Provider Name:Lacho funes Jr, 06/29/2026 02:35:00 PM, [address] [facility], [address], [place], [phone], Progress Notes * GEORGE PATINO DDOB:1985 (40 yo M)Acc No.[id number]:03/23/2025 Progress Notes Patient: GEORGE CHILDRESS Rubi Provider: Isaak Eagle MD :1985 A ge:40 Y S ex:Male Date:03/23/2025 Address:[address] [place] [address] Pcp:Alfonso Sierra MD Subjective: * Chief Complaints: [...] MD Date: 0 03/23/2025 Generated for Kee rogel/Azeem/Juanitting on: 1 04:52 PM EDT
--- OUTSIDE RECORDS SUMMARY | 2025-03-24 07:42 | XMS_ITS ---
Author Organization Alfonso Sierra MD Address 10 [facility] [address] [place] [phone] Care Team Providers Care Web Publisher Name Role Phone Alfonso Sierra Primary Care Provider REASON FOR VISIT Bone Density is due Encounters Encounter Location Date Provider Diagnosis Alfonso Sierra MD 10 [facility] [address] [place] [address] [phone] 03/24/2025 Alfonso Sierra Plan Of Treatment Next Appt Details Provider Name:Alfonso martinez, 09/15/2025 10:45:00 AM, [address] [place] [address], [address], [phone], Provider Name:Alfonso martinez, 03/14/2026 07:30:00 AM, [address] [place] [address], [address], [phone], Provider Name:Alfonso martinez, 03/21/2026 10:30:00 AM, [address] [place] [address], [address], [phone], Progress Notes * Javi SMITH DDOB:1985 (40 yo M)Acc No.[id number]:03/24/2025 Patient: Javi CHILDRESS :1985 A ge:40 Y S ex:Male Address:[address] [place] [address] [place] [phone] * true * Date: Generated for Kee rogel/Azeem/Westsmitting on: 04:50 PM EDT
--- OUTSIDE RECORDS SUMMARY | 2025-04-11 04:22 | XMS_ITS ---
Author Organization Alfonso Sierra MD Address [address] [place] [address] [phone] Care Team Providers Care Masonry Inspector Name Role Phone Alfonso Sierra Primary Care Provider [phone] REASON FOR VISIT bone density test Encounters Encounter Location Date Provider Diagnosis Alfonso Sierra MD 10 [facility] [address] [place] [address] [phone] 04/11/2025 Alfonso Sierra Plan Of Treatment Next Appt Details Provider Name:Alfonso martinez, 09/15/2025 10:45:00 AM, [address] [place] [address], [address] [place] [address], [phone], Provider Name:Alfonso martinez, 03/14/2026 07:30:00 AM, [address] [place] [address], [address], [phone], Provider Name:Alfonso martinez, 03/21/2026 10:30:00 AM, [address] [place] [address], [address], [phone], Progress Notes * Javi SMITH DDOB:1985 (40 yo M)Acc No.[id number]:04/11/2025 Patient: Javi CHILDRESS :1985 A ge:40 Y S ex:Male Address:[address] [place] [phone] * true * Date: Generated for Kee rogel/Azeem/Westsmitting on: 04:51 PM EDT
--- OUTSIDE RECORDS SUMMARY | 2025-07-07 11:15 | XMS_ITS ---
Author Organization Alfonso Sierra MD Address [address] [place] [phone] Care Team Providers Care Strainer Cleaner Name Role Phone Alfonso Sierra Primary Care Provider [phone] Allergies No Known Allergies REASON FOR [...] kg/m2 07/07/2025 weight is down 2 pounds [facility] e 03-17-25 Encounters Encounter Location Date Provider Diagnosis Alfonso Sierra MD [address] [place] [address] Drive [address] [place] [phone] 07/07/2025 Alfonso Sierra Hemangioma D18.00 and Hemangioma [...] Provider Name:Alfonso Avendano ier, 09/15/2025 10:45:00 AM, [address] [place] [address], Suite [facility], [place], [place], [phone], Provider Name:Alfonso Avendano ier, 03/14/2026 07:30:00 AM, [address] [place] [address], [address], [phone], Provider Name:Alfonso Avendano ier, 03/21/2026 10:30:00 AM, [address] [place] [address], [address] [place] [address], [phone], Progress Notes * Javi SMITH DDOB:1985 (40 yo M)Acc No.[id number]:07/07/2025 Progress Notes Patient: Javi CHILDRESS Provider: Yoon Sierra MD :1985 A ge:40 Y S ex:Male Date:07/07/2025 Address:[address] [place], [place] [phone] Subjective: * Chief Complaints: * f /u Urgent Care laceration 06-28-25 * HPI: S ymptom(s): patient is a 40 romanian male here for follow up recent laceration/ woke up and had bleeding above penis/ hefxhwro89 days ago. took all day to s[op [...] 07/07/2025 Generated for Kee rogel/Azeem/Lynette on: 1 04:53 PM EDT History and Physical Notes * HPI (History of Present Illness) Category Sub-Category Detail Notes Category Not es Symptom(s) patient is a 40 romanian male here for follow up recent laceration/ woke up and had bleeding above penis/ ouutlqui42 days ago. took all day to s[op bleeding Examination Category Sub-Category Detail Notes Category Not es General Examination GENERAL APPEARANCE: well developed , well nourished SKIN: small horne hemangi rakesh in pubic area.
--- NOTE | ~2025-08-19 | CT_ITS ---
EXAMINATION: CT CHEST ANGIOGRAPHY WITH IV CONTRAST INDICATION: history of PE, elevated D-dimer COMPARISON: Comparison is made with the prior examination dated 10/05/2024. TECHNIQUE: Helical CT scan of the chest was performed following administration of intravenous contrast (65 mL Omnipaque 350). The contrast bolus was timed to optimally opacify the pulmonary arteries. Thin sections were obtained through the pulmonary arteries. Coronal and sagittal reformatted images were generated. 3D/MIP reconstructed images are also obtained and reviewed. This CT exam was performed with one or more of the following dose reduction techniques: automated exposure control, adjustment of the mA and/or kV according to patient size, use of iterative reconstruction technique. DLP: 79 mGy-cm CHEST: THYROID: The thyroid gland is unremarkable. PULMONARY ARTERIES: No intraluminal filling defects are identified within the pulmonary arteries to suggest pulmonary emboli. LUNGS: There is airspace opacity in the left lower lobe consistent with atelectasis or pneumonia. Subsegmental atelectasis is noted at the right lung base. MEDIASTINUM: There is no mediastinal lymphadenopathy. MARBELLA: There is no hilar lymphadenopathy. CARDIOVASCULATURE: The heart is enlarged. There is a pericardial effusion measuring up to 1.7 cm in thickness. The thoracic aorta is normal in caliber. DEGREE OF CORONARY CALCIFICATION: not evaluable, due to dense contrast material in the coronary arteries. PLEURA: There is a small left pleural effusion. There is no right pleural effusion. No pneumothorax. MAIN AIRWAYS: The mainstem bronchi and proximal branches are patent. AXILLA: There is no axillary lymphadenopathy. UPPER ABDOMEN: The visualized portions of the liver, spleen, and adrenals are unremarkable. BONES AND SOFT TISSUES: There are multiple thoracic compression fractures. The patient is status post kyphoplasty at T10 and T11. CT/CT angio chest PE protocol IMPRESSION: 1. No evidence of pulmonary emboli. 2. Cardiomegaly and small to moderate pericardial effusion. 3. Left lower lobe atelectasis versus pneumonia. Small left pleural effusion. Electronically signed by: Marcial Wynn MD 08/19/2025 03:17 PM EDT
[2025-08-19] MEDS: iohexoL 350 MG/ML 100 ML INFUS..BTL IV (14:47)
--- OUTSIDE RECORDS SUMMARY | 2025-08-19 16:51 | XMS_ITS | Clinical Summary ---
Author Organization [facility] Address [address] [place] [phone] Phone Care Team Providers Care Purchase Price Analyst Name Role Phone Alfonso Sierra MD Primary [...] HIV ONE-TIME SCREENING (18-6 5 YEARS) 2005 INFLUENZA VACCINE (#1) 2025 COVID-19 VACCINE (2024-2 6 season) 2025 HEPATITIS A VACCINES Aged Out No long [...] topic Medical Devices Not on file Insurance [employer] [facility] [facility] Care Teams Purchase Price Analyst Relationship Specialty Start Date End Date Alfonso Sierra MD [address] [place] [address] [place] [address] PCP - General 01/13/24 Additional Source Comments The information contained in this document represents components of the legal health record. It is not the complete legal health record.[facility]
--- OUTSIDE RECORDS SUMMARY | 2025-08-19 16:51 | XMS_ITS | Patient Health Record ---
Author Organization Alfonso Sierra MD Address [address] [place], [place] [address] Care Team Providers Care Database Technician Name Role Phone Rigo Alfonso Primary Care Provider Allergies No Known Allergies Results Component Value Reference Range Notes Complete Blood Count Auto Di ff Reviewed date:03/10/2025 12:34:03 PM Interpretation: Performing Lab:[facility], [address] [place] [phone] Notes/Report: White Blood Count 5.3 4.8-10.8 X10*3/uL [...] NRBC Abs Auto 0.000 0.0-0.012 X10*3/uL Comprehensive [place]. Panel Fa st Reviewed date:03/10/2025 12:26:51 PM Interpretation: Performing Lab:[facility], [address] [place] [phone] Notes/Report: Sodium 138 135-145 mmol/L Potassium 4.5 [...] Panel Reviewed date:03/10/2025 12:28:40 PM Interpretation: Performing Lab:[facility], [address] [place] [phone] Notes/Report: Triglycerides 86 <150 mg/dL Desirable Triglyceride: [...] t Reviewed date:03/10/2025 12:37:42 PM Interpretation: Performing Lab:[facility], [address] [place] [phone] Notes/Report: Urine, Clean Catch Color Urine Dark Yellow Appearance Urine Clear PH 5.5 5.0-9.0 Glucose Urine UA Negative Negative mg/dL Urine Blood Negative Negative Specific [place] - Urine >= 1.030 1.005-1.025 Urine Protein Negative Neg-Trace mg/dL Urine Ketones Trace Negative mg/dL Nitrite Urine Negative Negative Leukocyte Esterase Urine Trace Negative RBC Urine 0-2 0-2 /HPF WBC Urine 0-5 0-5 /HPF Squamous Epithelial Cell Urine 0-2 0-2 /HPF Bacteria Urine None Seen None Seen Hyaline Casts Urine 0-2 0-2 /LPF Complete Blood Count Auto Di ff Reviewed date:10/05/2024 12:46:36 PM Interpretation: Performing Lab:[facility], [address] [place] [phone] Notes/Report: White Blood Count 12.5 4.8-10.8 X10*3/uL [...] X10*3/uL NRBC Abs Auto 0.000 0.0-0.012 X10*3/uL COR RECTED REPORT COR RECTED REPORT Comprehensive Met. Panel Reviewed date:10/05/2024 12:43:21 PM Interpretation: Performing Lab:[facility], [address] [place] [phone] Notes/Report: Sodium 139 135-145 mmol/L Potassium 4.2 [...] Reviewed date:10/05/2024 12:41:54 PM Interpretation: Performing Lab:[facility], [address] [place] [phone] Notes/Report: SLIDE REVIEW VERIFIED CT lumbar spine wo con Reviewed date:10/07/2024 03:28:04 PM Interpretation: Performing Lab: Notes/Report: [address] [address] [address] Scan Report Signed Patient: Javi Smith MR#: [id number] 8 : 1985 Acct:[id number] Age/Sex: 39 / M ADM Date: 10/05/24 Loc: HO.ED Attending Dr: Ordering Physician: Homer Larsen MD Date of Service: 10/05/24 Procedure(s): CT lumbar spine wo IV con Accession Number(s): [id number] cc: Alfonso Sierra MD; Homer Larsen MD [...] by: Will Cabral DO 10/05/2024 06:21 PM EST Dictated By: Dave Cabral DO Signed By: <Electronically signed by Dave Cabral DO in OV> 10/05/24 1821 DD/ 1549 TD/TT: 10/05/24 1653 Parts And Service Manager: GEOVANNA [place] [address] [address] Scan Report Signed Patient: Javi Smith MR#: [id number] 8 : 1985 Acct:[id number] Age/Sex: 39 / M ADM Date: 10/05/24 Loc: HO.ED Attending Dr: Ordering Physician: Homer Larsen MD Date of Service: 10/05/24 Procedure(s): CT lum bar spine wo IV con Accession Number(s): [id number] cc: Alfonso Sierra MD; Homer Larsen MD [...] con IMPRESSION: 1. No evidence of ac yurok fracture or traumatic subluxation of the lumbar [...] by: Will Cabral DO 10/05/2024 06:21 PM [facility] Dictated By: Mic Cabral DO Signed By: <Electronically signed by Dave Cabral DO in OV> 10/05/24 1821 DD/ 1549 TD/TT: 10/05/24 1653 Parts And Service Manager: GEOVANNA CT chest wo con Reviewed date:10/14/2024 12:09:34 PM Interpretation:appt 10-14-2024 Performing Lab: Notes/Report: [address] [address] [address] Scan Report Signed Patient: Javi Smith MR#: [id number] 8 : 1985 Acct:[id number] Age/Sex: 39 / M ADM Date: 10/05/24 Loc: HO.ED Attending Dr: Ordering Physician: Homer Larsen MD Date of Service: 10/05/24 Procedure(s): CT chest wo IV con Accession Number(s): [id number] cc: Alfonso Sierra MD; Homer Larsen MD [...] Jose Alfredo Garcia MD 10/05/2024 08:36 PM [facility] Dictated By: Jose Alfredo Garcia MD Signed By: <Electronically signed by Jose Alfredo Garcia MD in OV> 10/05/242035 DD/ 164 TD/TT: 10/05/24 165 Parts And Service Manager: [address] [address] [address] Scan Report Signed Patient: Javi Smith MR#: [id number] 8 : 1985 Acct:[id number] Age/Sex: 39 / M ADM Date: 10/05/24 Loc: HO.ED Attending Dr: Ordering Physician: Homer Larsen MD Date of Service: 10/05/24 Procedure(s): CT yue st wo IV con Accession Number(s): [id number] cc: Alfonso Sierra MD; Homer Larsen MD [...] Jose Alfredo Garcia MD 10/05/2024 08:36 PM [facility] Dictated By: Jose Alfredo Garcia MD Signed By: <Electronically signed by Jose Alfredo Garcia MD in OV> 10/05/242035 DD/ 42 TD/TT: 10/05/241652 Parts And Service Manager: CT head/brain wo con Reviewed date:10/05/2024 01:00:35 PM Interpretation: Performing Lab: Notes/Report: [address] [address] [address] Scan Report Signed Patient: Javi Smith MR#: [id number] 8 : 1985 Acct:[id number] Age/Sex: 39 / M ADM Date: 10/05/24 Loc: HO.ED Attending Dr: Ordering Physician: Homer Larsen MD Date of Service: 10/05/24 Procedure(s): CT head/brain wo IV con Accession Number(s): [id number] cc: Alfonso Sierra MD; Homer Larsen MD [...] 10/05/24 1244 DD/ 1154 TD/TT: 10/05/24 1159 Parts And Service Manager: [place] [address] [address] Scan Report Signed Patient: Javi Smith MR#: [id number] 8 : 1985 Acct:[id number] Age/Sex: 39 / M ADM Date: 10/05/24 Loc: HO.ED Attending Dr: Ordering Physician: Homer Larsen MD Date of Service: 10/05/24 Procedure(s): CT head/brain wo IV con Accession Number(s): [id number] cc: Alfonso Sierra MD; Homer Larsen MD [...] brain. Polypoid pattern paranasal sinus disease. Electronically camille d by: Claude Casas MD 10/05/2024 12:44 PM EST RP Dictated By: Claude Garcia MD Signed By: <Electronically signed by Claude Rowland MD in OV> 10/05/24 1244 DD/ 1154 TD/TT: 10/05/24 1159 Parts And Service Manager: XR chest 2V Reviewed date:10/05/2024 04:45:14 PM Interpretation: Performing Lab: Notes/Report: [address] [address] XRay Report Signed Patient: Javi Smith MR#: [id number] 8 : 1985 Acct:[id number] Age/Sex: 39 / M ADM Date: 10/05/24 Loc: HO.ED Attending Dr: Ordering Physician: Homer Larsen MD Date of Service: 10/05/24 Procedure(s): XR chest 2V Accession Number(s): [id number] cc: Alfonso Sierra MD; Homer Larsen MD [...] 10/05/24 1429 DD/ 1320 TD/TT: 10/05/24 1330 Parts And Service Manager: [address] [address] XRay Report Signed Patient: Javi Smith MR#: [id number] 8 : 1985 Acct:[id number] Age/Sex: 39 / M ADM Date: 10/05/24 Loc: HO.ED Attending Dr: Ordering Physician: Homer Larsen MD Date of Service: 10/05/24 Procedure(s): XR chest 2V Accession Number(s): [id number] cc: Alfonso Sierra MD; Homer Larsen MD EXAMINATION: XR CHEST CLINICAL INFORMATION: cough COMPARISON: X-ray dated June 032023 TECHNIQUE: 2 views of the chest were obtained. FINDINGS: Prominence of the interstitial lung markings with indistinct margins in the perihilar region s and the lower hemithoraces. No gross pleural effusion. No pneumothorax. Low lung volume. Cardiac mediastinal silhouette appears unchanged. Status post kyphoplasty/vertebroplast y procedure at T10 and T11. X R/XR chest 2V IMPRESSION: Pulmonary edema in t he correct clinical settings. Electronically camille d by: Claude Casas MD 10/05/2024 02:29 PM [facility] Dictated By: Claude Garcia MD Signed By: <Electronically signed by Claude Rowland MD in OV> 10/05/24 1429 DD/ 1320 TD/TT: 10/05/24 1330 Parts And Service Manager: XR lumbar spine 2-3V Reviewed date:10/05/2024 04:45:47 PM Interpretation: Performing Lab: Notes/Report: [address] [address] XRay Report Signed Patient: Javi Smith MR#: [id number] 8 : 1985 Acct:[id number] Age/Sex: 39 / M ADM Date: 10/05/24 Loc: .ED Attending Dr: Ordering Physician: Homer Larsen MD Date of Service: 10/05/24 Procedure(s): XR lumbar spine 2-3V Accession Number(s): [id number] cc: Alfonso Sierra MD; Homer Larsen MD [...] 10/05/2024 02:32 PM EST Dictated By: Claude Brown MD Signed By: <Electronically signed by Claude Rowland MD in OV> 10/05/24 1432 DD/ 1308 TD/TT: 10/05/24 1330 Parts And Service Manager: [place] [address] XRay Report Signed Patient: Javi Smith MR#: [id number] 8 : 1985 Acct:[id number] Age/Sex: 39 / M ADM Date: 10/05/24 Loc: .ED Attending Dr: Ordering Physician: Homer Larsen MD Date of Service: 10/05/24 Procedure(s): XR lum bar spine 2-3V Accession Number(s): [id number] cc: Alfonso Sierra MD; Homer Larsen MD EXAMINATION: XR LUMBOSACRAL SPINE CLINICAL INFORMATION: back pain COMPARISON: X-ray dated August 03, 2024 TECHNIQUE: Three views of the lumbosacral spine. FINDINGS: Burst fractures representing 50% volume loss at L2 and L5. Kyphoplasty/vertebro plast y procedure at T10 and T11. Osteopenia versus osteoporosis. No gross malalignment. Abundant stool in th e large intestine. Metallic coils overlapping the right lower pelvis/inguinal region. X R/XR lumbar spine 2-3V IMPRESSION: Subacute to old burs t fractures, L2 and L5. Osteopenia versus osteoporosis. Electronically camille d by: Claude Casas MD 10/05/2024 02:32 PM [facility] Dictated By: Claude Garcia MD Signed By: <Electronically signed by Claude Rowland MD in OV> 10/05/24 1432 DD/ 1308 TD/TT: 10/05/24 1330 Parts And Service Manager: MR lumbar spine wo con Reviewed date:11/18/2024 05:48:20 PM Interpretation: Performing Lab: Notes/Report: [address] [address] Magnetic Resonance Report Signed Patient: Javi Smith MR#: [id number] 8 : 1985 Acct:[id number] Age/Sex: 39 / M ADM Date: 10/19/24 Loc: HO.MRI Attending Dr: Boo Foster MD Ordering Physician: Boo Foster MD Date of Service: 10/19/24 Procedure(s): MR lumbar spine wo con Accession Number(s): [id number] cc: Alfonso Sirera MD; Boo Foster MD EXAMINATION: MR LUMBAR SPINE WITHOUT CONTRAST CLINICAL INFORMATION: 39-year-old with osteoporosis and history of vertebral compression fracture and kyphoplasty, with low back pain. COMPARISON: 01/10/2024 MRI, 10/05/2024 CT. TECHNIQUE: MRI of the lumbar spine was obtained using routine sequences without contrast. FINDINGS: CORONAL ALIGNMENT: Partially imaged lower thoracic dextrocurvature suspected on the lease administration supervisor view on the current study, probably unchanged from prior CT. SAGITTAL ALIGNMENT: There is mild gibbus angulation at the T10-T11 Junction similar to the previous MRI. Otherwise, the lumbosacral spine is anatomically aligned. LUMBOSACRAL JUNCTION: Normal. There are 5 zrh-cti-fouhnux lumbar-type vertebral bodies. VERTEBRAL BODIES: There is [...] Within normal limits. L5-S1: Normal annular contour. Pkql-yl-atrpuobf facet joint arthropathy right more than left [...] by: Samir Melton MD 11/17/2024 02:16 PM [facility] Dictated By: SAMIR MELTON MD Signed By: <Electronically signed by SAMIR MELTON MD in OV> 11/17/24 1416 DD/ 0743 TD/TT: 10/19/24 0830 Parts And Service Manager: [place] [address] Magnetic Resonance Report Signed Patient: Javi Simth MR#: [id number] 8 : 1985 Acct:[id number] Age/Sex: 39 / M ADM Date: 10/19/24 Loc: HO.MRI Attending Dr: Boo Foster MD Ordering Physician: Boo Foster MD Date of Service: 10/19/24 Procedure(s): MR lum bar spine wo con Accession Number(s): [id number] cc: Alfonso Sierra MD; Boo Foster MD EXAMINATION: MR LUMBAR SPINE WITH OUT CONTRAST CLINICAL INFORMATION: 39-year-old with osteoporosis and history of vertebral compression fracture and kyphopl asty, with low back pain. COMPARISON: 01/10/2024 MRI, 10/05/2024 CT. TECHNIQUE: MRI of the lumbar sp [...] LUMBOSACRAL JUNCTION : Normal. There are 5 bnn-vwe-sbenlbo lumbar-type vertebral bodies. VERTEBRAL BODIES: Th ere [...] abn ormal developmental findings. BONE MARROW: No suspicious marrow-replacing process or new bone marrow edema. CONUS MEDULLARIS: Terminates at L2. Morphology and signal is normal. INTRADURAL NERVE SARAVANAN TS: Within normal limits. L5-S1: Normal annula r contour. Mudd-jq-fsbheqcp facet joint arthropathy right more than left [...] No significant foramina l stenosis. PARAVERTEBRAL AND INCLUDED EXTRASPINAL SOFT TISSUES: Mildly prominent tubular cystic-appea [...] by: Samir Melton MD 11/17/2024 02:16 PM [facility] Dictated By: WILLY MELTON MD Signed By: <Electronically signed by SAMIR MELTON MD in OV> 11/17/24 1416 DD/ 0743 TD/TT: 10/19/24 0830 Parts And Service Manager: US abdomen complete Reviewed date:12/07/2024 12:24:06 PM Interpretation: Performing Lab: Notes/Report: [address] [address] Ultrasound Report Signed Patient: Javi Smith MR#: [id number] 8 : 1985 Acct:[id number] Age/Sex: 39 / M ADM Date: 10/26/24 Loc: HO.US Attending Dr: Alfonso Sierra MD Ordering Physician: Alfonso Sierra MD Date of Service: 10/26/24 Procedure(s): US abdomen complete Accession Number(s): [id number] cc: Alfonso Sierra MD; Lacho Eagle MD [...] OV> 12/07/24 0554 DD/ TD/TT: 10/26/24 0932 Parts And Service Manager: [address] [address] Ultrasound Report Signed Patient: Javi Smith MR#: [id number] 8 : 1985 Acct:[id number] Age/Sex: 39 / M ADM Date: 10/26/24 Loc: HO.US Attending Dr: Alfonso Sierra MD Ordering Physician: Alfonso Sierra MD Date of Service: 10/26/24 Procedure(s): US abd omen complete Accession Number(s): [id number] cc: Alfonso Sierra MD; Lacho Eagle MD [...] patic contour. Hepatic echotexture is mildly heterogeneous. Correlation with liver function tests and clinical exam recommended to deter mine further management. 2. A 0.7 cm gallston e. Gallbladder wall thickness of 0.2 cm. Gallbladder appears moderately distended. Electronically camille d by: Gail Baca MD 12/07/2024 05:54 AM [facility] Dictated By: Gail Baca MD Signed By: <Electronically signed by Gail Baca MD in OV> 12/07/24 0554 DD/ 7 TD/TT: 10/26/24931 Parts And Service Manager: Complete Blood Count Man Brit Reviewed date:12/14/2024 12:40:12 PM Interpretation: Performing Lab:[facility], [address] [place] [phone] Notes/Report: White Blood Count 5.3 4.8-10.8 X10*3/uL [...] INR Reviewed date:12/13/2024 05:15:51 PM Interpretation: Performing Lab:[facility], [address] [place] [phone] Notes/Report: Prothrombin Time 11.2 10.9-12.4 SEC INTERNATIONAL [...] Time Reviewed date:12/13/2024 05:15:01 PM Interpretation: Performing Lab:[facility], [address] [place] [phone] Notes/Report: Partial Thromboplastin Time 38.5 26.0-36.8 SEC For information regarding the monitoring of direct thrombin inhibitors, please refer to Pharmacy. Protein C Activity Reflex Ag Reviewed date:12/30/2024 04:16:23 PM Interpretation: Performing Lab:[facility], [address] [place] [phone] Notes/Report: Protein C Activity 141 70-180 % normal THIS TEST WAS PERFORMED AT: [employer] [address] [place] [address] DYAN TUCKER MD,PHD Protein C Antigen Add TNP Protein C Antigen TNP Protein S Activity reflex Ag Reviewed date:12/30/2024 04:16:13 PM Interpretation: Performing Lab:[facility], [address] [place] [phone] Notes/Report: Protein S Activity rflx Tot Fr 84 70-150 % normal THIS TEST WAS PERFORMED AT: [employer] [address] [place] [address] DYAN TUCKER MD,PHD Protein S Total (Antigenic) TNP Protein S Free Antigen TNP Anti-Thrombin III Antigen Reviewed date:12/30/2024 04:16:01 PM Interpretation: Performing Lab:[facility], [address] [place] [phone] Notes/Report: Anti-Thrombin III Antigen 125 80-120 % normal THIS TEST WAS PERFORMED AT: [employer]/[address] DYAN TUCKER MD,PHD Factor V Leiden Reviewed date:12/30/2024 04:15:48 PM Interpretation: Performing Lab:[facility], [address] [place] [phone] Notes/Report: Factor V Leiden NEGATIVE FACTOR V [...] and results monitored by Temo Hernandez, Ph.D., [facility], [facility], [facility]. VARIANT ANALYSIS: The Factor V Leiden (R506Q) [...] Health care providers, please contact your local [employer] genetic counselor or call [employer] ([phone]) for assistance with interpretation of these results. This test was developed and its analytical performance characteristics have been determined by [employer] [facility]. It has not been cleared or approved by the FDA. This assay has been validated pursuant to the CLIA regulations and is used for clinical purposes. THIS TEST WAS PERFORMED AT: [facility] [address] [place] [address] RUBINA OWENS MD,PHD,LATANYA Prothrombin 67074T Reviewed date:12/30/2024 04:15:39 PM Interpretation: Performing Lab:[facility], [address] [place] [phone] Notes/Report: Prothrombin 48160N NEGATIVE RESULT: G 77848H VARIANT NOT DETECTED [id number] See Below INTERPRETATION: This individual is negative (normal) for the I50039D variant in the Prothrombin/Factor II gene. Increased risk of thrombophilia can be caused by a variety of genetic and non-genetic factors not screened for by this assay. Laboratory testing supervised and results monitored by Temo Hernandez, Ph.D., [facility], [facility], [facility]. The Q57661H mutation [VG943985.1: g.78549J>A (c.*97G>A)] in the Prothrombin/Factor II gene is the second most common inherited risk factor for thrombosis occurring in approximately 2% of Caucasians. Presence of the mutation is associated with an elevation of prothrombin levels to about 30% above normal in heterozygotes and to 70% above normal in homozygotes. Prothrombin (W99595C) mutations are detected by amplification of their [...] Health care providers, please contact your local [employer]' genetic counselor or call [phone] ([phone]) for assistance with interpretation of these results. This test was developed and its analytical performance characteristics have been determined by [employer] [facility]. It has not been cleared or approved by the FDA. This assay has been validated pursuant to the CLIA regulations and is used for clinical purposes. THIS TEST WAS PERFORMED AT: [employer] [address] [place] [address] RUBINA OWENS MD,PHD,LATANYA Lupus Anticoagulant Panel Reviewed date:12/30/2024 04:15:31 PM Interpretation: Performing Lab:[facility], [address] [place] [phone] Notes/Report: Lupus Interpretation see note A Lupus Anticoagulant is not detected. Reference Range: Not Detected For additional information, please refer to http://[employer]/fa q/HWJ99u7 (This link is being provided for informational/ educational purposes only.) This interpretation is based on the following test results. PTT (LAC) Screen 35 <=40 sec DRVVT Screen 36 <=45 sec THIS TEST WAS PERFORMED AT: [employer]/[address] [address] DYAN TUCKER MD,PHD DRVVT Confirmation TNP DRVVT 1:1 Mix TNP DRVVT 1:1 Mix Interpretation TNP Hexagonal Phase Neutralization TNP Thrombin Clotting Time TNP Comprehensive Met. Panel Reviewed date:12/13/2024 05:12:10 PM Interpretation: Performing Lab:[facility], [address] [place] [phone] Notes/Report: Sodium 139 135-145 mmol/L Potassium 4.4 [...] Sensitivity Reviewed date:12/13/2024 05:13:25 PM Interpretation: Performing Lab:[facility], [address] [place] [phone] Notes/Report: D Dimer High Sensitivity 217 D-DIMER [...] Leiden Reviewed date:12/30/2024 04:15:09 PM Interpretation: Performing Lab:[facility], [address] [place] [phone] Notes/Report: Factor V Leiden NEGATIVE FACTOR V [...] and results monitored by Temo Hernandez, Ph.D., [facility], [facility], [facility]. VARIANT ANALYSIS: The Factor V Leiden (R506Q) [...] Health care providers, please contact your local [employer] genetic counselor or call [phone] ([phone]) for assistance with interpretation of these results. This test was developed and its analytical performance characteristics have been determined by [employer] [facility]. It has not been cleared or approved by the FDA. This assay has been validated pursuant to the CLIA regulations and is used for clinical purposes. THIS TEST WAS PERFORMED AT: [employer] [address] [place] [address] RUBINA OWENS MD,PHD,LATANYA Complete Blood Count Auto Di ff Reviewed date:04/28/2025 02:14:41 PM Interpretation: Performing Lab:[facility], [address] [place] [phone] Notes/Report: White Blood Count 5.1 4.8-10.8 X10*3/uL Red Blood Count 4.76 4.60-5.80 X10*6/uL Hemoglobin 14.9 14.0-18.0 g/dl Hematocrit 44.0 42.0-52.0 % Mean Corpuscular Volume 92.4 80.0-98.0 fL Mean Corpuscular Hemoglobin 31.3 27.0-33.0 pg Mean Corpuscular HGB Conc 33.9 31.0-36.0 g/dl Red Cell Distribution Width 12.8 11.0-16.0 % Platelet Count 239 160-400 X10*3/uL Mean Platelet Volume 10.6 9.4-12.4 fL Neutrophils Percent Auto 56.7 45-73 % Imm Gran Pct Auto 0.2 0.0-0.4 % Lymphocytes Percent Auto 22.6 20-40 % Monocytes Percent Auto 12.5 2-11 % Eosinophils Percent Auto 6.8 0-4 % Basophils Percent Auto 1.2 0-2 % NRBC Pct Auto 0.0 0.0-0.2 /100WBC Neutrophils Absolute Auto 2.9 2.0-8. 3 x10*3/uL Imm Gran Abs Auto 0.01 0.00-0.03 X10*3/uL Lymphocytes Absolute Auto 1.2 1.2-4. 9 X10*3/uL Monocytes Absolute Auto 0.6 0.1-1.2 X10*3/uL Eosinophils Absolute Auto 0.4 0.0-0. 4 X10*3/uL Basophils Absolute Auto 0.1 0.0-0.2 X10*3/uL NRBC Abs Auto 0.000 0.0-0.012 X10*3/uL Comprehensive Met. Panel Reviewed date:04/28/2025 01:50:20 PM Interpretation: Performing Lab:[facility], [address] [place] [phone] Notes/Report: Sodium 136 135-145 mmol/L Potassium 4.4 3.3-5.1 mmol/L Chloride 101 96-108 mmol/L Carbon Dioxide 29 22-29 mmol/L Anion Gap 10 12-20 Blood Urea Nitrogen 14 9-16 mg/dL Creatinine 0.56 0.5-1.4 mg/dL Creatinine Clr Calc Pharmacy 142.2 eGFR (calculated from the MDRD study equation) and eCrCl (calculated from the Cockcroft-Gault equation) are based on different parameters and may not yield comparable results. If eCrCl result is absurd, please check patient's height/weight. Estimated Glomerular Filt Rate > 60 Chronic Kidney Disease: Estimated GFR < 60 mL/min/1.73m2 Severe Kidney Disease: Estimated GFR < 15 mL/min/1.73m2 Glucose Random 89 60-115 mg/dL Calcium 10.2 8.4-10.2 mg/dL Bilirubin Total 1.7 0.0-1.0 mg/dL Aspartate Amino Transferase 84 5-37 U/L Alanine Aminotransferase 104 0-40 U/L Total Protein 7.8 6.5-8.0 g/dL Albumin Level 4.5 3.5-5.0 g/dL Alkaline Phosphatase 264 39-117 U/L D Dimer High Sensitivity Reviewed date:04/28/2025 01:50:26 PM Interpretation: Performing Lab:[facility], [address] [place] [phone] Notes/Report: D Dimer High Sensitivity 205 D-DIMER HS REFERENCE RANGE Note: Our assay reports D-Dimer Units (D-DU). The cut-off value for venous thromboembolic (VTE) disease is 230 ng/mL. This value has a very high negative predictive value when the patient has a low to moderate clinical probability of VTE. The upper limit of normal is 243 ng/mL. US venous duplex LE LT Reviewed date:04/29/2025 12:47:22 PM Interpretation: Performing Lab: Notes/Report: [address] [address] Ultrasound Report Signed Patient: Javi Smith MR#: [id number] 8 : 1985 Acct:[id number] Age/Sex: 40 / M ADM Date: 04/28/25 Loc: HO.US Attending Dr: Coreen Henson NP Ordering Physician: Coreen Henson NP Date of Service: 04/28/25 Procedure(s): US venous duplex LE LT Accession Number(s): [id number] cc: Alfonso Sierra MD; Mariah Ivy MD; Coreen Henson NP EXAMINATION: US TRIPLEX LOWER EXTREMITY, LEFT CLINICAL INFORMATION: Follow-up left lower extremity DVT COMPARISON: April 01, 2023 TECHNIQUE: Color-flow triplex imaging with spectral analysis and compression Doppler were performed on the left lower extremity. FINDINGS: Respiratory variation, normal compression and augmented flow are noted throughout the left lower extremity. The visualized common femoral vein, superficial femoral vein, profunda femoral vein, popliteal vein and midcalf peroneal and posterior tibial venous segments show no evidence of deep venous thrombosis. There is no Arias's cyst. US/US venous duplex LE LT IMPRESSION: No evidence of deep venous thrombosis involving the left lower extremity. Electronically signed by: Anton Dyson MD 04/28/2025 03:15 PM EDT Dictated By: Anton Dyson MD Signed By: <Electronically signed by Anton Dyson MD in OV> 04/28/25 1515 DD/ 1454 TD/TT: 04/28/25 1507 Parts And Service Manager: [address] [address] Ultrasound Report Signed Patient: Javi Smith MR#: [id number] 8 : 1985 Acct:[id number] Age/Sex: 40 / M ADM Date: 04/28/25 Loc: HO.US Attending Dr: Chantelle Henson NP Ordering Physician: Coreen Henson NP Date of Service: 04/28/25 Procedure(s): US anton ous duplex LE LT Accession Number(s): [id number] cc: Alfonso Sierra MD; Mariah Ivy MD; Coreen Henson NP EXAMINATION: US TRIPLEX LOWER EXTREMITY, LEFT CLINICAL INFORMATION: Follow-up left lower extremity DVT COMPARISON: April 01, 2023 TECHNIQUE: Color-flow triplex imaging with spectral analysis and compression Doppler were perform ed on the left lower extremity. FINDINGS: Respiratory variatio n, normal compression and augmented flow are noted throughout the left lower extremity. The visualized common femoral vein, superficial fe moral vein, profunda femoral vein, popliteal vein and midcalf peroneal and posterior tibial venous segments show no evidence of deep anton ous thrombosis. There is no Arias's cyst. U S/US venous duplex LE LT IMPRESSION: No evidence of deep venous thrombosis involving the left lower extremity. Electronically camille d by: Anton Dyson MD 04/28/2025 03:15 PM EDT RP Dictated By: Anton Dyson MD Signed By: <Electronically signed by Anton Dyson MD in OV> 04/28/25 1515 DD/ 1454 TD/TT: 04/28/25 1507 Parts And Service Manager: Complete Blood Count Auto Di ff Reviewed date:07/28/2025 12:15:05 PM Interpretation: Performing Lab:[facility], [address] [place] [phone] Notes/Report: White Blood Count 7.4 4.8-10.8 X10*3/uL Red Blood Count 4.24 4.60-5.80 X10*6/uL Hemoglobin 13.3 14.0-18.0 g/dl Hematocrit 39.3 42.0-52.0 % Mean Corpuscular Volume 92.7 80.0-98.0 fL Mean Corpuscular Hemoglobin 31.4 27.0-33.0 pg Mean Corpuscular HGB Conc 33.8 31.0-36.0 g/dl Red Cell Distribution Width 12.6 11.0-16.0 % Platelet Count 313 160-400 X10*3/uL Mean Platelet Volume 9.6 9.4-12.4 fL Neutrophils Percent Auto 73.1 45-73 % Imm Gran Pct Auto 0.3 0.0-0.4 % Lymphocytes Percent Auto 12.6 20-40 % Monocytes Percent Auto 10.7 2-11 % Eosinophils Percent Auto 2.6 0-4 % Basophils Percent Auto 0.7 0-2 % NRBC Pct Auto 0.0 0.0-0.2 /100WBC Neutrophils Absolute Auto 5.4 2.0-8. 3 x10*3/uL Imm Gran Abs Auto 0.02 0.00-0.03 X10*3/uL Lymphocytes Absolute Auto 0.9 1.2-4. 9 X10*3/uL Monocytes Absolute Auto 0.8 0.1-1.2 X10*3/uL Eosinophils Absolute Auto 0.2 0.0-0. 4 X10*3/uL Basophils Absolute Auto 0.1 0.0-0.2 X10*3/uL NRBC Abs Auto 0.000 0.0-0.012 X10*3/uL Comprehensive Met. Panel Reviewed date:07/28/2025 12:15:33 PM Interpretation: Performing Lab:[facility], [address] [place] [phone] Notes/Report: Sodium 137 135-145 mmol/L Potassium 4.4 3.3-5.1 mmol/L Chloride 100 96-108 mmol/L Carbon Dioxide 31 22-29 mmol/L Anion Gap 10 12-20 Blood Urea Nitrogen 14 9-16 mg/dL Creatinine 0.57 0.5-1.4 mg/dL Creatinine Clr Calc Pharmacy 134.4 [...] Estimated GFR < 15 mL/min/1.73m2 Glucose Random 101 60-115 mg/dL Calcium 9.4 8.4-10.2 mg/dL Bilirubin Total 2.7 0.0-1.0 mg/dL Aspartate Amino Transferase 77 5-37 U/L Alanine Aminotransferase 84 0-40 U/L Total Protein 7.4 6.5-8.0 g/dL Albumin Level 3.9 3.5-5.0 g/dL Alkaline Phosphatase 341 39-117 U/L Bilirubin Direct Reviewed date:07/28/2025 12:14:41 PM Interpretation: Performing Lab:[facility], [address] [place] [phone] Notes/Report: Bilirubin Direct 1.7 0.0-0.5 mg/dL Lactate Dehydrogenase Reviewed date:07/28/2025 12:14:09 PM Interpretation: Performing Lab:[facility], [address] [place] [phone] Notes/Report: Lactate Dehydrogenase 195 118-273 U/L D Dimer High Sensitivity Reviewed date:07/28/2025 12:14:23 PM Interpretation: Performing Lab:[facility], [address] [place] [phone] Notes/Report: D Dimer High Sensitivity 1314 Results of DDIMER called to JERRI on 07/28/25 at 1051 by INOCENCIO. D-DIMER HS REFERENCE RANGE Note: Our assay reports D-Dimer Units (D-DU). The cut-off value for venous thromboembolic (VTE) disease is 230 ng/mL. This value has a very high negative predictive value when the patient has a low to moderate clinical probability of VTE. The upper limit of normal is 243 ng/mL. Reason For Referral Reason acute saddle pulmona [...] y 12 hrs for 30 day(s) Active Immunizations Vaccine Route Administration Date Status [...] Status W/U Status Risk Notes Problem Osteopetrosis (2570436) Osteopetrosis (Q78.2) Active confirmed Problem Ascites (867733591) Other ascites (R18.8) Active confirmed Problem 972593555 Seizure disorder (G40.909) Active confirmed Problem Ulcerative proctocolitis (753580446) 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 Problem 612680256074259 Acute saddle pulmonary embolism without acute cor pulmonale (I26.92) Active confirmed Problem 4496224 Clubbing of nail (R68.3) Active confirmed Problem 619195348 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 Problem 173705346 Compression fracture of thoracic vertebra with routine healing, unspecified thoracic vertebral level, subsequent encounter (S22.000D) Active confirmed Vital Signs Blood pressure diastolic 50 mm Hg 07/07/2025 drake ght is down 2 pounds since 03-17-25 Height 64 in 07/07/2025 weight is down 2 pounds since 03-17-25 Blood pressure systolic 82 mm Hg 07/07/2025 weig ht is down 2 pounds since 03-17-25 Weight 126 lbs 07/07/2025 weight is down 2 pounds since 03-17-25 BMI 21.63 kg/m2 07/07/2025 weight is down 2 pounds since 03-17-25 Encounters Encounter Location Date Provider Diagnosis Alfonso Sierra MD [address] [place] [address] [id number] 03/10/2025 Alfonso Sierra Blood tests for routine general physical examination Z00.00 and 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 Alfonso Sierra MD [address] [place] [address] [id number] 09/09/2024 Alfonso Sierra Seizure disorder G40.909 Alfonso Sierra MD [address] [place] [address] [id number] 10/14/2024 Alfonso Sierra Seizure disorder G40.909 ; 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 and Other ascites R18.8 Alfonso Sierra MD [address] [place] [address] [id number] 11/16/2024 Alfonso Sierra Acute saddle pulmonary embolism without acute cor pulmonale I26.92 Alfonso Sierra MD [address] [place] [address] [id number] 12/14/2024 Alfonso Sierra 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 ; Osteopetrosis Q78.2 and Compression fracture of thoracic vertebra with routine healing, unspecified thoracic vertebral level, subsequent encounter S22.000D Alfonso Sierra MD [address] [place] [address] [id number] 03/17/2025 Alfonso Sierra Compression fracture of thoracic vertebra with routine healing, unspecified thoracic vertebral level, subsequent encounter S22.000D ; Annual physical exam Z00.00 ; Osteopetrosis Q78.2 ; Acute saddle pulmonary embolism without acute cor pulmonale I26.92 and Depression screening Z13.31 Alfonso Sierra MD [address] [place] [address] [id number] 07/07/2025 Alfonso Sierra Hemangioma D18.00 an d Hemangioma of skin D18.01 Alfonso Sierra MD [address] [place] [address] [id number] 09/14/2024 Alfonso Sierra Acute saddle pulmonary embolism without acute cor pulmonale I26.92 Alfonso Sierra MD [address] [place] [address] [id number] 10/07/2024 Alfonso Sierra MD [address] [place] [address] [id number] 10/11/2024 Alfonso Sierra MD [address] [place] [address] [id number] 10/15/2024 Alfonso Sierra 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 and Other ascites R18.8 Alfonso Sierra MD [address] [place] [address] [id number] 03/24/2025 Alfonso Sierra MD [address] [place] [address] [id number] 04/11/2025 Alfonso Sierra Assessments Encounter Date Diagnosis (ICD Code) Assessment Notes Treatment Notes Treatment Clinical Notes Section Notes 03/10/2025 Blood tests for routine general physical examination (ICD-10 - Z00.00) 09/09/2024 Seizure disorder (ICD-10 - G40.909) patient [...] 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) stable 03/17/2025 Compression fracture of thoracic vertebra with routine healing, unspecified thoracic vertebral level, subsequent encounter (ICD-10 - S22.000D) has been doing well and not having any complaints 03/17/2025 Annual physical exam (ICD-10 - Z00.00) labs reviewed and discussed with patient 07/07/2025 Hemangioma (ICD-10 - D18.00) 07/07/2025 Hemangioma of skin (ICD-10 - D18.01) advised nothing to do about it. just put pressure on it if it recurs 09/14/2024 Acute saddle pulmonary embolism without acute cor pulmonale (ICD-10 - I26.92) 03/10/2025 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) 12/14/2024 Osteopetrosis (ICD-10 - Q78.2) on forteo. dr dean is following 03/17/2025 Osteopetrosis (ICD-10 - Q78.2) followed by dr dean 10/15/2024 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) 12/14/2024 Compression fracture of thoracic vertebra with routine healing, unspecified thoracic vertebral level, subsequent encounter (ICD-10 - S22.000D) doing better with a little pain BONE DENSITY ORDER PRINTED AND PUT INTO FUTURE FOLDER 03/17/2025 Acute saddle pulmonary embolism without acute cor pulmonale (ICD-10 - I26.92) saw hematology and they may be stopping the eliquis in 10/15/2024 Other ascites (ICD-10 - R18.8) 10/14/2024 Other ascites (ICD-10 - R18.8) 03/17/2025 Depression screening (ICD-10 - Z13.31) negative screen Plan Of Treatment Pending Test Test Name Order Date US ABD 10/14/2024 US abdomen complete 10/15/2024 XR chest 2V 04/29/2024 XR chest 2V 06/03/2024 EEG awake and asleep 05/04/2024 Future Test Test Name Order Date BONE DENSITY DEXA 04/13/2025 Next Appt Details Provider Name:Alfonso martinez, 09/15/2025 10:45:00 AM, [address], [address], [place], [place], [phone], Provider Name:Alfonso Avendano michelle, 03/14/2026 07:30:00 AM, [address] [facility], [address], [place], [place], [phone], Provider Name:Alfonso Avendano ozzier, 03/21/2026 10:30:00 AM, [address] [place] [address], Suite [facility], [place], [place], [id number], Insurance Providers Payer Name Payer Address Payer Phone Subscriber Number Group Number Insured Name Patient Relationship to Insured Coverage Start Date Coverage End Date [facility] [address] [address] [place] [address] [phone] [id number] Javi Smith Self - patient is the insured [facility] [place] [facility] [address] [place] [address] [id number] Javi Smith Self - patient is the insured Medical (General) History Medical History History ICD Code 04/30/2019 - colonoscopy by Dr. Eagle : Clonoscopy 12/10/22 pending path daquan pierre
--- OUTSIDE RECORDS SUMMARY | 2025-08-19 16:51 | XMS_ITS | Clinical Summary ---
Author Organization [facility] Address [address] [place] [address] Phone Care Team Providers Care Servicer Name Role Phone Physician, Pcp Unknown Primary [...] of 3 - 19+ 3-dose series) 2006 HPV Vaccines (1 - 3-dose SCD M series) 2014 Cholesterol Screening (Lipid Panel) 10/11/2024 HIV Screening 10/11/2024 Hepatitis C Screening 10/11/2024 Social Influencers of Health Screening 10/11/2024 Depression Screening 11/03/2024 COVID-19 Vaccine (4 - 2024-2 6 season) 2025 11/20/2021, 03/29/2021, 03/01/2021 Influenza Vaccine (#1) 2025 RSV Immunization Adult Patients (1 - 1-dose 75+ series) 2062 HIB Vaccines Aged Out No longer eligi [...] patient's age to complete this topic Insurance [facility] Care Teams Servicer Relationship Specialty Start Date End Date Physician, Pcp Unknown PCP - General 01/03/25
--- OUTSIDE RECORDS SUMMARY | 2025-08-19 16:51 | XMS_ITS | Encounter Summary ---
Author Organization [facility] Address [address] [facility] [address] [place] [address] Phone Care Team Providers Care Tumbling Instructor Name Role Phone Alfonso Sierra MD Primary Care Provider Encounter Details Date Type Department Care Team (Latest Contact Info) Description 04/30/2024 Ancillary Orders Bone Density, [facility] - [address], [address] [place] [phone] Boo Foster MD [address] [place] [address] Age-related osteoporosis without current pathological fracture (Primary Dx) Social History Tobacco Use Types Packs/Day Years [...] Orientation Straight 06/09/2024 2: 21 PM EDT documented as of this encounter Plan of Treatment Not on file documented as of this encounter Results * BD DXA AXIAL (SPINE) WITH HIP (05/31/2024 9:24 AM EDT) Anatomical Region Laterality Modality Bone Density Bone Density 05/31/2024 9:13 AM EDT Impressions 05/31/2024 5:51 PM EDT Interpretation: Bone mineral density is below the expected range for age. Narrative 05/31/2024 5:51 PM EDT Referred By: BOO FOSTER Indications: Osteoporosis Scanner: [employer] W with serial# of [id number] located at [facility] Bone Density Scan (DXA) 05/31/24 Details of prior DXA scans are available by clicking View Image BMD T- Z- Skeletal Site gm/cm2 score score BMD Change Since Prior Scan ------ ----- ----- PA Spine (L1 L3 L4) 0.536 -5.00 -5.00 N/A Total Hip (Left) 0.791 -1.60 -1.40 N/A Femoral Neck (Left) 0.730 -1.50 -1.10 N/A ------ ----- ----- * Denotes significant change when >= 0.022 g/cm2 for the spine, 0.027 g/cm2 for the total hip, 0.029 g/cm2 for the femoral neck. Interpretation: Bone mineral density is below the expected range for age. Technical Quality: Imaging of all sites was of adequate quality.L2 FRACTURE FRAX: A FRAX(r) score was not calculated because the patient is under the age of 40. Additional Information: -World Health Organization criteria classify adults based on lowest T-score at PA spine, hip or forearm: Normal (T-score >= -1.0), Osteopenia (T-score between -1 and -2.5), or Osteoporosis (T-score <= -2.5). At [facility], T-scores are compared to peak bone density of a young white gender matched reference population. - For premenopausal women and men under the age of 50, Z-scores (comparison to age, gender, and ethnicity matched reference population) are used: Above expected range for age (Z-score >= 2.0), Within expected range of age (Z-score 1.9 to -1.9), or Below expected range for age (Z-score <= -2.0). - The Bone Health and Osteoporosis Foundation recommends that treatment be considered in men aged more than 50 years and in postmenopausal women with ANY of the following: Prior hip or vertebral fractures; T-score of <= -2.5 at the PA spine or hip; or 10 year fracture probability by FRAX of >= 3% for the hip or >= 20% for major osteoporotic fracture. - The FRAX algorithm (https://www.arlyn.ac.uk/FRAX/tool.aspx) is designed to predict 10-year fracture risk in treatment-naive adults between the ages of 40 and 90. It is not intended to be used in those receiving pharmacologic osteoporosis treatment. - Including race/ethnicity in the generation of T- or Z-scores or in the FRAX calculation is complicated, and currently undergoing active review to ensure that we can give patients the best information on their risk of fracture. -Click on View Full Report to see subsequent pages with images and prior bone density results. Reviewed By: Khang Paula MD on 05/31/2024 17:51:50 Procedure Note Khang Paula MD - 05/31/2024 Referred By: BOO FOSTER Indications: Osteoporosis Scanner: [email or web address] W with serial# of [id number] located at [facility] Bone Density Scan (DXA) 05/31/24 Details of prior DXA scans are available by clicking View Image BMD T- Z- Skeletal Site gm/cm2 score score BMD Change Since Prior Scan ------ ----- PA Spine (L1 L3 L4) 0.536 -5.00 -5.00 N/A Total Hip (Left) 0.791 -1.60 -1.40 N/A Femoral Neck (Left) 0.730 -1.50 -1.10 N/A ------ ----- * Denotes significant change when >= 0.022 g/cm2 for the spine, 0.027g/cm2 for the total hip, 0.029 g/cm2 for the femoral neck. Interpretation: Bone mineral density is below the expected range for age. Technical Quality: Imaging of all sites was of adequate quality.[id number] FRAX: A FRAX(r) score was not calculated because the patient is under the age of 40. Additional Information: -World Health Organization criteria classify adults based on lowestT-score at PA spine, hip or forearm: Normal (T-score >= -1.0), Osteopenia (T-score between -1 and -2.5), or Osteoporosis (T-score <= -2.5). At [facility], T-scores are compared to peak bone density of a young white gender matched reference population. - For premenopausal women and men under the age of 50, Z-scores(comparison to age, gender, and ethnicity matched reference population) are used:Above expected range for age (Z-score >= 2.0), Within expected range of age (Z-score 1.9 to -1.9), or Below expected range for age (Z-score <= -2.0). - The Bone Health and Osteoporosis Foundation recommends that treatment be considered in men aged more than 50 years and in postmenopausal women with ANY of the following: Prior hip or vertebral fractures; T-score of <= -2.5 at the PA spine or hip; or 10 year fracture probability by FRAX of >= 3%for the hip or >= 20% for major osteoporotic fracture. - The FRAX algorithm (https://www.arlyn.ac.uk/FRAX/tool.aspx) is designed to predict 10-year fracture risk in treatment-naive adultsbetween the ages of 40 and 90. It is not intended to be used in those receiving pharmacologic osteoporosis treatment. - Including race/ethnicity in the generation of T- or Z-scores or in the FRAX calculation is complicated, and currently undergoing active review to ensure that we can give patients the best information on their risk of fracture. -Click on View Full Report to see subsequent pages with images and prior bone density results. Reviewed By: Khang Paula MD on 05/31/2024 17:51:50 IMPRESSION: Interpretation: Bone mineral density is below the expected range for age. Boo Foster MD IMG BD BONE DENSITY DEXA Final Result documented in this encounter Visit Diagnoses Diagnosis Age-related osteoporosis without current pathological fracture- Primary Age-related osteoporosis without current pathological fracture documented in this encounter Care Teams Tumbling Instructor Relationship Specialty Start Date End Date Alfonso Sierra MD [address] [place] [address] [place] [address] PCP - General 01/13/24 documented as of this encounter Additional Source Comments The information contained in this document represents components of the legal health record. It is not the complete legal health record.[facility]
--- OUTSIDE RECORDS SUMMARY | 2025-08-19 16:52 | XMS_ITS | Patient Health Record ---
Author Organization [facility] Address [address] [place] [id number] Care Team Providers Care Vp Scientific Affairs Name Role Phone Alfonso Sierra MD Primary Care Provider Lacho Zhou Jr Unavailable [phone] Allergies No Known Allergies Results Component Value Reference Range Notes US abdomen complete Reviewed date:12/07/2024 02:40:22 PM Interpretation: Performing Lab: Notes/Report: [address] [address] Ultrasound Report Signed Patient: George Smith MR#: [id number] 8 : 1985 Acct:[id number] Age/Sex: 39 / M ADM Date: 10/26/24 Loc: HO.US Attending Dr: Alfonso Sierra MD Ordering Physician: Alfonso Sierra MD Date of Service: 10/26/24 Procedure(s): US abdomen complete Accession Number(s): [id number] cc: Alfonso Sierra MD; Lacho Eagle MD [...] by: Gail Baca MD 12/07/2024 05:54 AM [facility] Dictated By: Gail Baca MD Signed By: <Electronically signed by Gail Baca MD in OV> 12/07/24 0554 DD/ 7 TD/TT: 10/26/24 09 Retention Specialist: Reason For Referral No Information Medications Medication SIG (Take, Route, Fr equency, Duration) Notes Start Date End Date Status Mesalamine 1.2 GM TAKE 2 TABLETS BY MO UT EVERY DAY FOR 90 DAYS; Duration: 90 Ac tive Eliquis 5 MG 1 tablet Orally Twic e a day; Duration: 30 day(s) Active Forteo 560 MCG/2.24ML Subcutaneous; Dura tion: 30 Days Active levETIRAcetam 500 MG TAKE 1 TABLET BY MO UT EVERY 12 HOURS Oral; Duration: 30 Days Active Forteo 560 MCG/2.24ML Subcutaneous; Dura tion: 28 Days Active Ursodiol 250 MG TAKE 1 TABLET BY DICK FOUR TIMES A DAY FOR 90 DAYS; Duration: 90 Active Immunizations Vaccine Route Administration Date Status Comme nts Influenza Unknown 01/07/2019 Refused Influenza Unknown 10/30/2022 Refused Influenza Unknown 03/22/2024 Refused Problems Problem Type SNOMED Code ICD Code Onset Dates Problem Status W/U Status Risk Notes Problem Chronic ulcerative pancolitis (639853999) Ulcerative pancolitis without complication (K51.00) Active confirmed Problem Ulcerative pancolitis (455585064) Ulcerative pancolitis (K51.00) Active confirmed Problem Ulcerative colitis (67862657) Ulcerative colitis, unspecified (K51.90) Active confirmed Problem Primary sclerosing cholangitis (844710312) 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 Problem Sclerosing cholangitis (527946892) Sclerosing cholangitis (K83.09) Active confirmed Vital Signs Temperature 97.7 degrees Fahrenheit 06/30/2025 Blood pressure diastolic 01 mm Hg 06/30/2025 Height 65.50 in 06/30/2025 Blood pressure systolic 001 mm Hg 06/30/2025 Weight 123.6 lbs 06/30/2025 BMI 20.25 kg/m2 06/30/2025 Encounters Encounter Location Date Provider Diagnosis [facility] [address] [place] [phone] 06/30/2025 Lacho Eagle Jr 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 and Ulcerative pancolitis without complication K51.00 [facility] [address] [place] [phone] 03/17/2025 Lacho Eagle Jr [facility] [address] [place] [phone] 05/25/2025 Lacho Eagle Jr Assessments Encounter Date Diagnosis (ICD Code) Assessment Notes Treatment Notes Treatment Clinical Notes Section Notes 06/30/2025 Ulcerative pancolitis without complication (ICD-10 - K51.00) From a GI perspective, George is doing well. He will continue mesalamine and ursodiol. Laboratory studies have been stable. Follow-up will be in 1 year. Today's visit was 30 minutes including discussion of his current medical problems in detail. 06/30/2025 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) From a GI perspective, George is doing well. He will continue mesalamine and ursodiol. Laboratory studies have been stable. Follow-up will be in 1 year. Today's visit was 30 minutes including discussion of his current medical problems in detail. Plan Of Treatment Pending Test Test Name Order Date LIVER PROFILE 09/10/2013 LIVER PROFILE 08/02/2015 LIVER PROFILE 10/30/2022 LIVER PROFILE 03/22/2024 LIVER PROFILE 05/10/2024 AMMONIA 05/10/2024 CBC w/o DIFF 10/30/2022 CBC w/o DIFF 03/22/2024 PROTHROMBIN TIME (PT, INR) 03/22/2024 PROTHROMBIN TIME (PT, INR) 10/30/2022 US ABD 10/30/2022 US ABD 03/22/2024 Liver Fibrosis Pnl 10/30/2022 Liver Fibrosis Pnl 03/22/2024 Future Test Test Name Order Date LIVER PROFILE 03/30/2012 CBC w DIFF 03/30/2012 PROTHROMBIN TIME (PT, INR) 03/30/2012 COLONOSCOPY 01/07/2019 COLONOSCOPY 10/30/2022 Next Appt Details Provider Name:Lacho funes Jr, 06/29/2026 02:35:00 PM, [address] [place] [address], [address], [place], [address], Insurance Providers Payer Name Payer Address Payer Phone Subscriber Number Group Number Insured Name Patient Relationship to Insured Coverage Start Date Coverage End Date [facility] [address] [address] [place], [place] [id number] GEORGE SMITH Self - patient is the insured MEDICAID OF [facility] [address] [place] [address] [id number] GEORGE SMITH Self - patient is the insured Medical (General) History Medical History History ICD Code primary sclerosing cholangitis ulcerative colitis, diagnosi s 08/11, current treatment Lialda, colonoscopy 12/26, no active colitis on biopsies, three-year followup spinal fractures surgery february 04, 2023 Pulmonary embolus Surgical History Surgery Date(Month/Year) spinal fracures 02/2023 Right inguinal herniorrhaphy 04/2017
--- OUTSIDE RECORDS SUMMARY | 2025-08-19 16:52 | XMS_ITS | Continuity of Care Document ---
Author Organization [facility] Address [address] [place] [address] Phone [phone] Social History Type Date Description Comments Sex Male Sex Unknown Medical Devices Description No Information Available Encounters Description No Information Available Assessments Description No Information Available Plan of Treatment No Information Available Functional Status Description No Information Available Mental Status Description No Information Available Referrals Description No Information Available
== END 2025-08-19 14:20 | disposition home or self-care (01) ==
LOC: HO.CT 14:19
PROVIDERS: Visit Provider Nurse Practitioner Family
DX: R79.89 Other specified abnormal findings of blood chemistry (principal); I26.99 Other pulmonary embolism without acute cor pulmonale
CPT/HCPCS: 71275; Q9967

== ENCOUNTER → 2025-08-19 14:21 | Outpatient (BNV) | payer OTHER, SELFPAY | PROVIDERS: Visit Provider Radiology Diagnostic Radiology | DX: J90 Pleural effusion, not elsewhere classified (principal); I51.7 Cardiomegaly | CPT/HCPCS: 71275 ==

== ENCOUNTER 2025-08-30 14:00 | Outpatient (AMB) | payer OTHER, SELFPAY ==
--- OUTSIDE RECORDS SUMMARY | 2024-04-29 09:35 | XMS_ITS ---
Author Organization [facility] Address [address] [place] [address] Care Team Providers Care Rfid Developer Name Role Phone Alfonso Sierra MD Primary Care Provider Lacho Zhou Jr REASON FOR VISIT elevated ammonia level Encounters Encounter Location Date Provider Diagnosis [facility] [address] [facility] [address] [place] [phone] 04/29/2024 Lacho Eagle Jr Plan Of Treatment Next Appt Details Provider Name:Lacho funes Jr, 06/29/2026 02:35:00 PM, [address] [facility], [address], [place], [address], Progress Notes * GEORGE PATINO DDOB:1985 (40 yo M)Acc No.[id number]:04/29/2024 Progress Notes Patient: GEORGE CHILDRESS Rubi Provider: Isaak Eagle MD :1985 A ge:39 Y S ex:Male Date:04/29/2024 Address:[address] [place] [address] Pcp:Alfonso Sierra MD Subjective: * Chief Complaints: [...] 04/29/2024 Generated for Kee rogel/Azeem/Lynette on: 1 06:23 PM EDT
--- OUTSIDE RECORDS SUMMARY | 2024-10-11 08:05 | XMS_ITS ---
Author Organization Alfonso Sierra MD Address [address] [place] [address] [phone] Care Team Providers Care Machine Sneller Name Role Phone Alfonso Sierra Primary Care Provider [phone] [address] chest Encounters Encounter Location Date Provider Diagnosis Alfonso Sierra MD [address] [facility] [address] [place] [phone] 10/11/2024 Alfonso Sierra Plan Of Treatment Next Appt Details Provider Name:Alfonso martinez, 09/15/2025 10:45:00 AM, [address] [place] [address], [address] [place] [address], [phone], Provider Name:Alfonso martinez, 03/14/2026 07:30:00 AM, [address] [place] [address], [address], [phone], Provider Name:Alfonso martinez, 03/21/2026 10:30:00 AM, [address] [place] [address], [address], [phone], Progress Notes * Javi SMITH DDOB:1985 (39 yo M)Acc No.[id number]:10/11/2024 Patient: Javi Cr :1985 A ge:39 Y S ex:Male Address:[address] [place] [phone] * true * Date: Generated for Kee rogel/Azeem/Juanitting on: 06:23 PM EDT
--- OUTSIDE RECORDS SUMMARY | 2024-10-14 07:30 | XMS_ITS ---
Author Organization Alfonso Sierra MD Address [address] [place] [phone] Care Team Providers Care Parts Control Clerk Name Role Phone Alfonso Sierra Primary Care Provider Allergies No Known Allergies REASON FOR VISIT F/U ERV seizure new med Keppra, go over ct chest with patient, explain about ABD us, not booked yet Medications Medication SIG (Take, Route, Fr equency, Duration) Notes Start Date End Date Status Keppra 1000 MG 1 tablet Orally ever y 12 hrs for 30 day(s) Active Forteo 600 MCG/2.4ML as directed Subcutaneous Active Ursodiol 250 MG as directed Orally qid Active Lialda 1.2 GM as directed Orally Active Eliquis 5 MG 1 tablet Orally Twic e a day for 90 days Active Problems Problem Type SNOMED Code ICD Code Onset Dates Problem Status W/U Status Risk Notes Problem Ascites (777257624) Other ascites (R18.8) Active confirmed Vital Signs Blood pressure systolic 82 mm Hg 10/14/20 24 Blood pressure diastolic 58 mm Hg 024 Height 64 in 10/14/2024 Weight 127 lbs 10/14/2024 BMI 21.80 kg/m2 10/14/2024 Encounters Encounter Location Date Provider Diagnosis Alfonso Sierra MD [address] [place] [id number] 10/14/2024 Alfonso Sierra Seizure disorder G40.909 ; 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 and Other ascites R18.8 Assessments Encounter Date Diagnosis (ICD Code) Assessment Notes Treatment Notes Treatment Clinical Notes Section Notes 10/14/2024 Seizure disorder (ICD-10 - G40.909) just started keppra/ going to see dr chatman 10/14/2024 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) will goe us of abdomen to see if there is ascites, pending diagnostic testing 10/14/2024 Other ascites (ICD-10 - R18.8) Plan Of Treatment Treatment Notes Assessment Notes Seizure disorder just started keppra/ going to see dr chatman Primary sclerosing cholangitis will goe us of abdomen to see if there is ascites, pending diagnostic testing Pending Test Test Name Order Date US ABD 10/14/2024 Next Appt Details Follow Up: 4 Weeks, Reason: Provider Name:Alfonso martinez, 09/15/2025 10:45:00 AM, [address] [place] [address], [address], [phone], Provider Name:Alfonso martinez, 03/14/2026 07:30:00 AM, [address] [place] [address], [phone], Provider Name:Alfonso martinez, 03/21/2026 10:30:00 AM, [address] [place] [address], [phone], Progress Notes * Javi SMITH DDOB:1985 (39 yo M)Acc No.[id number]:10/14/2024 Progress Notes Patient: Josr Javi talley Provider: Yoon Sierra MD :1985 A ge:39 Y S ex:Male Date:10/14/2024 Address:[address] [place] [address] [place], [id number] Subjective: * Chief Complaints: * F /U ERV seizure new med Kesumanraginocencia over ct chest with patient, explain about ABD us, not booked yet * HPI: S ymptom(s): patient is a 39 yo male here for follow up recent ER visit for seizure. * ROS: G eneral/Constitutional: Denies C hills. D enies F atigue. D enies F ever. D enies H eadache. E NT: Patient denies d ecreased sense of smell , any loss of taste , sore throat. D enies S ore throat. R espiratory: Denies C ough. D enies S hortness of breath at rest. D enies S hortness of breath with exertion. G astrointestinal: Denies D iarrhea. D enies N ausea. M usculoskeletal: Patient denies m uscle aches. P eripheral Vascular: Patient denies r ed and blue toes. * Medical History: * Surgical History: * Hospitalization/Major Diagno stic Procedure: * Medications: T akingKeppra 1000 MG Tablet 1 tablet Orally every 12 hrsForteo 600 MCG/2.4ML Solution Pen-injector as directed Subcutaneous Ursodiol 250 MG Tablet as directed Orally qidLialda 1.2 GM Tablet Delayed Release as directed Orally Eliquis 5 MG Tablet 1 tablet Orally Twice a dayMedication List reviewed and reconciled with the patientTaking Keppra 1000 MG Tablet 1 tablet Orally every 12 hrsTaking Forteo 600 MCG/2.4ML Solution Pen-injector as directed Subcutaneous Taking Ursodiol 250 MG Tablet as directed Orally qidTaking Lialda 1.2 GM Tablet Delayed Release as directed Orally Taking Eliquis 5 MG Tablet 1 tablet Orally Twice a dayMedication List reviewed and reconciled with the patient * Allergies: N .K.D.A.yes[Allergies Verified] Objective: * Vitals: H t: 64, Wt:127, BMI:21.80, BP:82/58. * Examination: G eneral Examination: GENERAL APPEARANCE: w ell developed, well nourished. SKIN: g ood turgor. HEART: n o murmurs, rubs, gallops , regular rate and rhythm. LUNGS: n o wheezes, rales, rhonchi , good air movement , clear to auscultation bilaterally. Assessment: * Assessment: 1. S eizure disorder - G40.909 2 . P rimary sclerosing cholangitis - K83.01 3 .?Other ascites - R18.8 Plan: * Treatment: 2. P rimary sclerosing cholangitis I maging: US ABD Notes: will goe us of abdomen to see if there is ascites, pending diagnostic testing?? * Procedure Codes: * Follow Up: 4 Weeks * * Sign off status: Completed true * Provider: Yoon Sierra MD Date: 12/15/2023 Generated for Kee rogel/Azeem/Juanitting on: 06:23 PM EDT History and Physical Notes * HPI (History of Present Illness) Category Sub-Category Detail Notes Category Not es Symptom(s) patient is a 39 yo male here for follow up recent ER visit for seizure Examination Category Sub-Category Detail Notes Category Not es General Examination GENERAL APPEARANCE: well developed , well nourished HEART: no murmurs, rubs, ga llops , regular rate and rhythm LUNGS: no wheezes, rales, r honchi , good air movement , clear to auscultation bilaterally SKIN: good turgor
--- OUTSIDE RECORDS SUMMARY | 2024-10-15 08:53 | XMS_ITS ---
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 and Other ascites R18.8 Assessments Encounter Date Diagnosis (ICD Code) Assessment Notes Treatment Notes Treatment Clinical Notes Section Notes 10/15/2024 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) 10/15/2024 Other ascites (ICD-10 - R18.8) Plan Of Treatment Pending Test Test Name Order Date US abdomen complete 10/15/2024 Next Appt Details Provider Name:Alfonso martinez, 09/15/2025 10:45:00 AM, [facility], Suite [facility], [place], [place], [phone], Provider Name:Alfonso martinez, 03/14/2026 07:30:00 AM, [address], [address], [place], [phone], Provider Name:Alfonso Avendano ier, 03/21/2026 10:30:00 AM, [address], [address], [place], [phone], Progress Notes * Javi SMITH DDOB:1985 (39 yo M)Acc No.[id number]:10/15/2024 Patient: Josr teresajeff Javi Venegas :1985 A ge:39 Y S ex:Male Address:[address] [place] [phone] Subjective: * Chief Complaints: * A bd US orders * Medical History: * Surgical History: * Hospitalization/Major Diagno stic Procedure: * Medications: Objective: Assessment: * Assessment: 1. P rimary sclerosing cholangitis - K83.01 2 . O ther ascites - R18.8 Plan: * Treatment: 2.?Other ascites?Imaging: US abdomen complete* [facility] [place] * Procedure Codes: * true * Date: Generated for Kee rogel/Azeem/Westsmitting on: 06:24 PM EDT
--- OUTSIDE RECORDS SUMMARY | 2024-11-16 04:15 | XMS_ITS ---
Author Organization Alfonso Sierra MD Address [address] [place] [phone] Care Team Providers Care Glass Tube Bender Name Role Phone Alfonso Sierra Primary Care Provider [phone] Allergies No Known Allergies Reason For Referral [...] Location Date Provider Diagnosis Alfonso Sierra MD [address] [place] [address] [place] [phone] 11/16/2024 Alfonso Sierra Acute saddle pulmonary embolism [...] Provider Name:Alfonso Avendano ier, 09/15/2025 10:45:00 AM, [address] [place] [address], [address] [place] [address], [phone], Provider Name:Alfonso Avendano ier, 03/14/2026 07:30:00 AM, [address] [place] [address], [address], [phone], Provider Name:Alfonso Avendano ieclari, 03/21/2026 10:30:00 AM, [address] [place] [address], [address], [phone], Progress Notes * Javi SMITH DDOB:1985 (39 yo M)Acc No.[id number]:11/16/2024 Progress Notes Patient: Javi Cr Provider: Yoon Sierra MD :1985 A ge:39 Y S ex:Male Date:11/16/2024 Address:[address] [place], [place] [phone] Subjective: * Chief Complaints: * 4 week [...] 0 11/16/2024 Generated for Kee rogel/Azeem/Juanitting on: 06:23 PM [...]
--- OUTSIDE RECORDS SUMMARY | 2024-12-14 04:45 | XMS_ITS ---
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 12/14/2024 Compression fracture [...] Details Provider Name:Alfonso martinez, 09/15/2025 10:45:00 AM, [address] [place] [address], [address], [phone], Provider Name:Alfonso martinez, 03/14/2026 07:30:00 AM, [address] [place] [address], [address], [phone], Provider Name:Alfonso martinez, 03/21/2026 10:30:00 AM, [address] [place] [address], [address], [phone], Progress Notes * Javi SMITH DDOB:1985 (39 yo M)Acc No.[id number]:12/14/2024 Progress Notes Patient: Javi CHILDRESS Provider: Yoon Sierra MD :1985 A ge:39 Y S ex:Male Date:12/14/2024 Address:[address] [place], [place] [phone] Subjective: * Chief Complaints: * 1 month [...] for Juan Ramoni juan f/Azeem/eTransmitting on: 1 06:24 PM EDT History and Physical Notes * [...]
--- OUTSIDE RECORDS SUMMARY | 2025-03-10 03:45 | XMS_ITS ---
Author Organization Alfonso Sierra MD Address [address] [place] [phone] Care Team Providers Care Clinical Safety Specialist Name Role Phone Alfonso Sierra Primary Care Provider Results Component Value Reference Range Notes Complete Blood Count Auto Di ff Reviewed date:03/10/2025 12:34:03 PM Interpretation: Performing Lab:[facility], [address] [place] [phone] Notes/Report: White Blood Count 5.3 4.8-10.8 X10*3/uL Red Blood Count 5.03 4.60-5.80 X10*6/uL Hemoglobin 15.7 14.0-18.0 g/dl Hematocrit 46.3 42.0-52.0 % Mean Corpuscular Volume 92.0 80.0-98.0 fL Mean Corpuscular Hemoglobin 31.2 27.0-33.0 pg Mean Corpuscular HGB Conc 33.9 31.0-36.0 g/dl Red Cell Distribution Width 13.0 11.0-16.0 % Platelet Count 255 160-400 X10*3/uL Mean Platelet Volume 11.1 9.4-12.4 fL Neutrophils Percent Auto 54.4 45-73 % Imm Gran Pct Auto 0.2 0.0-0.4 % Lymphocytes Percent Auto 24.5 20-40 % Monocytes Percent Auto 13.4 2-11 % Eosinophils Percent Auto 6.0 0-4 % Basophils Percent Auto 1.5 0-2 % NRBC Pct Auto 0.0 0.0-0.2 /100WBC Neutrophils Absolute Auto 2.9 2.0-8.3 x10*3/u L Imm Gran Abs Auto 0.01 0.00-0.03 X10*3/uL Lymphocytes Absolute Auto 1.3 1.2-4.9 X10*3/u L Monocytes Absolute Auto 0.7 0.1-1.2 X10*3/uL Eosinophils Absolute Auto 0.3 0.0-0.4 X10*3/u L Basophils Absolute Auto 0.1 0.0-0.2 X10*3/uL NRBC Abs Auto 0.000 0.0-0.012 X10*3/uL Comprehensive Tell. Panel Fa st Reviewed date:03/10/2025 12:26:51 PM Interpretation: Performing Lab:[facility], [address] [place] [phone] Notes/Report: Sodium 138 135-145 mmol/L Potassium 4.5 3.3-5.1 mmol/L Chloride 101 96-108 mmol/L Carbon Dioxide 28 22-29 mmol/L Anion Gap 14 12-20 Blood Urea Nitrogen 16 9-16 mg/dL Creatinine 0.67 0.5-1.4 mg/dL Estimated Glomerular Filt Rate > 60 Chronic Kidney Disease: Estimated GFR < 60 mL/min/1.73m2 Severe Kidney Disease: Estimated GFR < 15 mL/min/1.73m2 Glucose Fasting 87 60-99 mg/dL Calcium 9.9 8.4-10.2 mg/dL Bilirubin Total 2.0 0.0-1.0 mg/dL Aspartate Amino Transferase 168 5-37 U/L Alanine Aminotransferase 231 0-40 U/L Total Protein 8.2 6.5-8.0 g/dL Albumin Level 4.5 3.5-5.0 g/dL Alkaline Phosphatase 294 39-117 U/L Lipid Panel Reviewed date:03/10/2025 12:28:40 PM Interpretation: Performing Lab:[facility], [address] [place] [phone] Notes/Report: Triglycerides 86 <150 mg/dL Desirable Triglyceride: less than 150 mg/dL Borderline High Triglyceride 150-199 mg/dL High Triglyceride: 200-499 mg/dL Very High Triglyceride: greater than or equal to 5OO mg/dL Cholesterol 158 <200 mg/dL Desirable Cholesterol: less than 200 mg/dL Borderline High Cholesterol: 200-239 mg/dL High Cholesterol: greater than 239 mg/dL LDL Cholesterol Calculated 107 <100 mg/dL Desirable LDL: less than 100 mg/dL Near Optimal/Above Optimal LDL: 110-129 mg/dL Borderline High LDL: 130-159 mg/dL High LDL: 160-189 mg/dL Very High LDL: greater than or equal to 190 mg/dL HDL Cholesterol 34 >40 mg/dL Desirable HDL: greater than 40 mg/dL Note: This HDL assay may give artificially low results in patients with liver disease. UA ClnCatch+Micro w/rflx Cul t Reviewed date:03/10/2025 12:37:42 PM Interpretation: Performing Lab:[facility], [address] [place] [phone] Notes/Report: Urine, Clean Catch Color Urine Dark Yellow Appearance Urine Clear PH 5.5 5.0-9.0 Glucose Urine UA Negative Negative mg/dL Urine Blood Negative Negative Specific Whick - Urine >= 1.030 1.005-1.025 Urine Protein Negative Neg-Trace mg/dL Urine Ketones Trace Negative mg/dL Nitrite Urine Negative Negative Leukocyte Esterase Urine Trace Negative RBC Urine 0-2 0-2 /HPF WBC Urine 0-5 0-5 /HPF Squamous Epithelial Cell Urine 0-2 0-2 /HPF Bacteria Urine None Seen None Seen Hyaline Casts Urine 0-2 0-2 /LPF REASON FOR VISIT FASTING LABS Encounters Encounter Location Date Provider Diagnosis Alfonso Sierra MD [address] [place] [address] Drive [address] [place], [place] [phone] 03/10/2025 Alfonso Sierra Blood tests for routine general physical examination Z00.00 and 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 Assessments Encounter Date Diagnosis (ICD Code) Assessment Notes Treatment Notes Treatment Clinical Notes Section Notes 03/10/2025 Blood tests for routine general physical examination (ICD-10 - Z00.00) 03/10/2025 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) Plan Of Treatment Next Appt Details Provider Name:Alfonso Avendano ier, 09/15/2025 10:45:00 AM, [address], [address], [place], [place], [phone], Provider Name:Alfonso Avendano ier, 03/14/2026 07:30:00 AM, [address], [address], [place], [place], [phone], Provider Name:Alfonso Avendano ier, 03/21/2026 10:30:00 AM, [address], [address], [place], [place], [phone], Progress Notes * Javi SMITH DDOB:1985 (40 yo M)Acc No.[id number]:03/10/2025 Progress Note Patient: Javi CHILDRESS Rubi Provider: Yoon Sierra MD :1985 A ge:40 Y S ex:Male Date:03/10/2025 Address:[address] [place] [phone] Subjective: * Chief Complaints: * 1 . FASTING LABS. * Medical History: Objective: * Vitals: Assessment: * Assessment: 1. B lood tests for routine general physical examination - Z00.00 (Primary) 2 .?Primary sclerosing cholangitis - K83.01 Plan: * Treatment: 2. P rimary sclerosing cholangitis L AB: Complete Blood Count Auto Diff (Collection Date & Time - 03/10/2025 07:45 AM) L AB: Comprehensive Tell. Panel Fast (Collection Date & Time - 03/10/2025 07:45 AM) L AB: Lipid Panel (Collection Date & Time - 03/10/2025 07:45 AM) L AB: UA ClnCatch+Micro w/rflx Cult (Collection Date & Time - 03/10/2025 07:45 AM) * Procedure Codes: 3 6415 VENIPUNCT, ROUTINE* * * The named appointment provid er may or may not be the originator of this progress note, and it is not deemed complete until electronically signed by the appointment provider. Sign off status: Pending * Provider: Yoon Sierra MD Date: 0 03/10/2025 Generated for Kee rogel/Azeem/Lynette on: 1 06:23 PM EDT
--- OUTSIDE RECORDS SUMMARY | 2025-03-17 07:00 | XMS_ITS ---
Author Organization Alfonso Sierra MD Address [address] [place] [phone] Care Team Providers Care Cnc Milling Machine Operator Name Role Phone Alfonso Sierra [...] Location Date Provider Diagnosis Alfonso Sierra MD [address] [place] [address] [place] [phone] 03/17/2025 Alfonso Sierra Compression fracture of thoracic [...] Reason: Provider Name:Alfonso martinez, 09/15/2025 10:45:00 AM, [address] [place] [address], [address] [place] [address], [phone], Provider Name:Alfonso martinez, 03/14/2026 07:30:00 AM, [address] [place] [address], Suite [facility], [place], [place], [phone], Provider Name:Alfonso Corina Avendano ier, 03/21/2026 10:30:00 AM, [address], [address], [place], [place], [phone], Progress Notes * Javi SMITH DDOB:1985 (40 yo M)Acc No.[id number]:03/17/2025 Progress Notes Patient: Javi CHILDRESS Provider: Yoon Sierra MD :1985 A ge:40 Y S ex:Male Date:03/17/2025 Address:[address] [place], [place] [phone] Subjective: * Chief Complaints: * A NNUAL [...] Marital status: single. Occupation: works part-time at [employer]. Pets: none. Travel outside of the [place] [...] mg/dL Urine Blood Negative Negative - Specific [place] - Urine >= 1.030 H 1.005-1.025 - [...] Auto 0.000 0.0-0.012 - X10*3/uL L ab:Comprehensive [place]. Panel Fast (Order Date - 03/10/2025) (Collection [...] 0 03/17/2025 Generated for Kee rogel/Azeem/Juanitting on: 06:24 PM EDT History and Physical Notes [...]
--- OUTSIDE RECORDS SUMMARY | 2025-03-23 05:40 | XMS_ITS ---
Author Organization [facility] Address [address] [place] [address] Care Team Providers Care Certified Nurse Practitioner Name Role Phone Alfonso Sierra MD Primary Care Provider Lacho Zhou Jr REASON FOR VISIT ulcerative colitis Encounters Encounter Location Date Provider Diagnosis [facility] [address] [facility] [address] [place] [phone] 03/23/2025 Lacho Eagle Jr Plan Of Treatment Next Appt Details Provider Name:Lacho funes Jr, 06/29/2026 02:35:00 PM, [address] [facility], [address], [place], [phone], Progress Notes * GEORGE PATINO DDOB:1985 (40 yo M)Acc No.[id number]:03/23/2025 Progress Notes Patient: GEORGE CHILDRESS Rubi Provider: Isaak Eagle MD :1985 A ge:40 Y S ex:Male Date:03/23/2025 Address:[address] [place] [address] Pcp:Alfonso Sierra MD Subjective: * Chief Complaints: * 1 . Ulcerative colitis. * Medical History: Objective: * Vitals: Assessment: Plan: * Treatment: * * The named appointment provid er may or may not be the originator of this progress note, and it is not deemed complete until electronically signed by the appointment provider. Sign off status: Pending * Provider: Isaak Eagle MD Date: 0 03/23/2025 Generated for Kee rogel/Azeem/Lynette on: 1 06:24 PM EDT
--- OUTSIDE RECORDS SUMMARY | 2025-03-24 07:42 | XMS_ITS ---
Author Organization Alfonso Sierra MD Address 10 [facility] [address] [place] [phone] Care Team Providers Care Sanitation Officer Name Role Phone Alfonso Sierra Primary Care Provider REASON FOR VISIT Bone Density is due Encounters Encounter Location Date Provider Diagnosis Alfonso Sierra MD 10 [facility] [address] [place] [phone] 03/24/2025 Alfonso Sierra Plan Of Treatment Next Appt Details Provider Name:Alfonso martinez, 09/15/2025 10:45:00 AM, [address] [place] [address], [address], [phone], Provider Name:Alfonso martinez, 03/14/2026 07:30:00 AM, [address] [place] [address], [address], [phone], Provider Name:Alfonso martinez, 03/21/2026 10:30:00 AM, [address] [place] [address], [address], [phone], Progress Notes * Javi SMITH DDOB:1985 (40 yo M)Acc No.[id number]:03/24/2025 Patient: Javi CHILDRESS :1985 A ge:40 Y S ex:Male Address:[address] [place] [address] [place] [phone] * true * Date: Generated for Kee rogel/Azeem/Westsmitting on: 06:22 PM EDT
--- OUTSIDE RECORDS SUMMARY | 2025-04-11 04:22 | XMS_ITS ---
Author Organization Alfonso Sierra MD Address [address] [place] [phone] Care Team Providers Care Warping Machine Operator Name Role Phone Alfonso Sierra Primary Care Provider REASON FOR VISIT bone density test Encounters Encounter Location Date Provider Diagnosis Alfonso Sierra MD 10 [facility] [address] [place] [phone] 04/11/2025 Alfonso Sierra Plan Of Treatment Next Appt Details Provider Name:Alfonso martinez, 09/15/2025 10:45:00 AM, [address] [place] [address], [address] [place] [address], [phone], Provider Name:Alfonso martinez, 03/14/2026 07:30:00 AM, [address] [place] [address], [address], [phone], Provider Name:Alfonso martinez, 03/21/2026 10:30:00 AM, [address] [place] [address], [address], [phone], Progress Notes * Javi SMITH DDOB:1985 (40 yo M)Acc No.[id number]:04/11/2025 Patient: Javi CHILDRESS :1985 A ge:40 Y S ex:Male Address:[address] [place] [phone] * true * Date: Generated for Kee rogel/Azeem/Juanitting on: 06:23 PM EDT
--- OUTSIDE RECORDS SUMMARY | 2025-07-07 11:15 | XMS_ITS ---
Author Organization Alfonos Sierra MD Address [address] [place] [address] [phone] Care Team Providers Care Double End Tenoner Operator Name Role Phone Alfonso Sierra Primary Care Provider Allergies No Known Allergies REASON FOR VISIT f/u Urgent Care laceration 06-28-25 Medications Medication SIG (Take, Route, Fr equency, Duration) Notes Start Date End Date Status Forteo 600 MCG/2.4ML as directed Subcutaneous Active Ursodiol 250 MG as directed Orally qid Active Lialda 1.2 GM as directed Orally Active Eliquis 5 MG 1 tablet Orally Twic e a day for 90 days Active Keppra 1000 MG 1 tablet Orally ever y 12 hrs for 30 day(s) Active Vital Signs Blood pressure systolic 82 mm Hg 07/07/20 25 Blood pressure diastolic 50 mm Hg 025 Height 64 in 07/07/2025 Weight 126 lbs 07/07/2025 BMI 21.63 kg/m2 07/07/2025 weight is down 2 pounds [facility] 03-17-25 Encounters Encounter Location Date Provider Diagnosis Alfonso Sierra MD [address] [place] [address] Drive [address] [place] [address] [phone] 07/07/2025 Alfonso Sierra Hemangioma D18.00 and Hemangioma of skin D18.01 Assessments Encounter Date Diagnosis (ICD Code) Assessment Notes Treatment Notes Treatment Clinical Notes Section Notes 07/07/2025 Hemangioma (ICD-10 - D18.00) 07/07/2025 Hemangioma of skin (ICD-10 - D18.01) advised nothing to do about it. just put pressure on it if it recurs Plan Of Treatment Treatment Notes Assessment Notes Hemangioma of skin advised nothing to d o about it. just put pressure on it if it recurs Next Appt Details Provider Name:Alfonso Avendano ier, 09/15/2025 10:45:00 AM, [address] [place] [address], Suite [facility], [place], [place], [phone], Provider Name:Alfonso Avendano ier, 03/14/2026 07:30:00 AM, [address] [place] [address], [address], [phone], Provider Name:Alfonso Avendano ier, 03/21/2026 10:30:00 AM, [address] [place] [address], [address] [place] [address], [phone], Progress Notes * Javi SMITH DDOB:1985 (40 yo M)Acc No.[id number]:07/07/2025 Progress Notes Patient: Javi CHILDRESS Provider: Yoon Sierra MD :1985 A ge:40 Y S ex:Male Date:07/07/2025 Address:[address] [place], [place] [phone] Subjective: * Chief Complaints: * f /u Urgent Care laceration 06-28-25 * HPI: S ymptom(s): patient is a 40 kinyarwanda male here for follow up recent laceration/ woke up and had bleeding above penis/ rodxtgjq81 days ago. took all day to s[op bleeding. * ROS: G eneral/Constitutional: Denies C hills. D enies F atigue. D enies F ever. D enies H eadache. E NT: Denies S ore throat. R espiratory: Denies C ough. D enies S hortness of breath at rest. D enies S hortness of breath with exertion. G astrointestinal: Denies D iarrhea. D enies N ausea. * Medical History: * Surgical History: * [...] Objective: * Vitals: H t: 64, Wt: 126, BMI:21.63, BP:82/50, Wt-k.15. weight is down 2 pounds since 03-17-25. * Examination: G eneral Examination: GENERAL APPEARANCE: w ell developed, well nourished. SKIN: s mall horne hemangioma in pubic area.. ? Assessment: * Assessment: 1. H emangioma - D18.00 (Primary) 2 . H emangioma of skin - D18.01 ? Plan: * Treatment: * Procedure Codes: * * Sign off status: Completed true * Provider: Yoon Sierra MD Date: 0 07/07/2025 Generated for Kee rogel/Azeem/Lynette on: 1 06:24 PM EDT History and Physical Notes * HPI (History of Present Illness) Category Sub-Category Detail Notes Category Not es Symptom(s) patient is a 40 kinyarwanda male here for follow up recent laceration/ woke up and had bleeding above penis/ bzeflcrc67 days ago. took all day to s[op bleeding Examination Category Sub-Category Detail Notes Category Not es General Examination GENERAL APPEARANCE: well developed , well nourished SKIN: small horne hemangi rakesh in pubic area.
--- NOTE | 2025-08-30 14:03 | A.OFFVIS_ITS ---
Intake Visit Reasons: 6m Allergies No Known Allergies Allergy (Verified 08/30/25 14:07) Medication List - Last Reconciled 08/30/25 by Gloria Castañeda CNP apixaban (Eliquis) 5 mg PO BID Forteo (teriparatide) 20 mcg (0.08 mL) subcut DAILY NS levetiracetam 500 mg PO Q12H mesalamine (Lialda) 2.4 grams PO DAILY ursodiol 250 mg PO QID HPI Comments Details: He was doing okay. He was taking levetiracetam 500mg twice a day. No medication side effects. No seizures. Sleep was okay. Last seizure 10/04/24 when he probably had a seizure in his sleep as his tongue was bitten quite badly and his pillow was bloody. He was seen in the ER and was started on Keppra 500mg bid. On 03/28/24 he had a generalized seizure in [facility] ER. His CAT scan was unremarkable. EEG was normal. A subsequent EEG on the 07/20/24 showed minimal abnormality of 2 with 3 sharp transients at T5. There is some concern that he could be having some seizures during sleep because he has had some compression fractures without falls or injuries and has osteoporosis. He had one febrile seizure at age 4 years, no seizures after that. Milestones and growth was normal. Uncomplicated delivery. No FH of seizures. [facility] Medical History Compression fx, lumbar spine Compression fracture of thoracic spine, non-traumatic Thoracic back pain Collapsed vertebra, not elsewhere classified, site unspecified, initial encounter for fracture Lumbar compression fracture Thoracic compression fracture Abdominal distension Bacteremia Ulcerative colitis Primary sclerosing cholangitis Surgical History History of hand surgery H/O right inguinal hernia repair H/O colonoscopy Family History Mother Breast cancer Lung cancer Osteoporosis Psoriatic arthritis Father No problems noted. Social History Household Members: Family Household Members Other:: Parents. Housing: House Do you presently have visiting nurse or other home services: No Patient Tobacco Use Status: Never used Tobacco Advance Directives Date on File: 04/07/24 Current occupational status: employed Gender identity: Male Review of Systems Const Denies chills, Denies daytime sleepiness, Denies difficulty sleeping, Denies fatigue, Denies fever(s), Denies frequent falls, Denies headache(s), Denies increased appetite, Denies poor appetite, Denies snoring, Denies weakness, Denies weight gain and Denies weight loss Eyes Denies loss of vision ENT Denies vertigo, Denies dizziness, Denies headache(s) and Denies neck pain Card Denies chest pain at rest, Denies chest pain with activity, Denies syncope, Denies leg edema, Denies palpitations, Denies dyspnea and Denies dyspnea on ex ertion Resp Denies cough, Denies dyspnea, Denies dyspnea on exertion and Denies snoring GI Denies abdominal pain, Denies constipation, Denies heartburn, Denies diarrhea and Denies nausea Denies urinary frequency, Denies urinary incontinence and Denies urinary urgency Musc Denies abnormal gait, Reports back pain, Denies myalgias, Denies arthralgias, Denies neck pain, Denies numbness and Denies tingling Neuro Denies abnormal gait, Denies vertigo, Denies dizziness, Denies syncope, Denies frequent falls, Denies headache(s), Denies lack of coordination, Denies loss of vision, Denies memory loss, Denies numbness, Denies Other visual disturbances, Denies restless legs, Denies seizure-like activity, Denies tingling, Denies paresthesias, Denies tremor(s) and Denies weakness Psych Denies anxiety, Denies depression, Denies auditory hallucinations, Denies memory loss and Denies visual hallucinations Endo Denies fatigue and Denies palpitations Physical Exam Const Other: General Appearance:? normal, in no acute distress. Heart:? S1, S2 normal, no murmurs. Lungs:? clear anteriorly and posteriorly. Musculoskeletal:? normal. Extremities:? no edema. Psych:? alert, oriented, cognitive function intact, cooperative with exam. Neuro Other: Abnormal Neurological Findings:?none.? Mental Status: alert and oriented X 3. Normal attention, orientation, memory, and affect. Cranial Nerves: Pupils are equal, round, and reactive to light. External ocular muscles are intact. Visual shaikh are full, no ptosis. Face is symmetrical, no facial weakness or droop. Facial sensations are normal. Tongue protrudes in midline. Palate elevates symmetrically. Shoulder shrugging is normal Motor Examination: Normal muscle tone, bulk and strength. No atrophy or fasciculations. No drift of the extended upper extremities. DTR 2+. Plantars are flexor. Sensory Exam: Normal light touch, temperature, pinprick, vibration, and joint- position sensations. Rhomberg sign is absent. Coordination: No ataxia. No titubation. Gait Exam: Within normal limits. Cerebellar Signs: [id number] is okay. Extrapyramidal System: No tremor, rigidity with normal facial expressions. No bradykinesia. No bradyphrenia. Normal arm swing and posture. No propulsion or retropulsion. Speech: Normal. Results Reviewed Results Reviewed: 01/2025 48 hr ambulatory EEG: normal. Assessment & Plan Assessment & Plan (1) Seizure disorder: Code(s): G40.909 - Epilepsy, unspecified, not intractable, without status epilepticus Category: Medical Plan: Continue levetiracetam 500mg 1 tablet twice a day. Coding Level of Care Code Est Pt Level 4 (24142) Diagnoses Seizure disorder G40.909
--- OUTSIDE RECORDS SUMMARY | 2025-08-30 18:23 | XMS_ITS | Patient Health Record ---
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 Panel Fa st Reviewed date:03/10/2025 12:26:51 PM Interpretation: Performing Lab:[facility], [address] [place] [phone] Notes/Report: Sodium 138 135-145 mmol/L Potassium 4.5 [...] Panel Reviewed date:03/10/2025 12:28:40 PM Interpretation: Performing Lab:[facility], [address] [place] [phone] Notes/Report: Triglycerides 86 <150 mg/dL Desirable Triglyceride: [...] t Reviewed date:03/10/2025 12:37:42 PM Interpretation: Performing Lab:[facility], [address] [place] [phone] Notes/Report: Urine, Clean Catch Color Urine Dark Yellow Appearance Urine Clear PH 5.5 5.0-9.0 Glucose Urine UA Negative Negative mg/dL Urine Blood Negative Negative Specific [place] - Urine >= 1.030 1.005-1.025 Urine Protein [...] ff Reviewed date:10/05/2024 12:46:36 PM Interpretation: Performing Lab:[facility], [address] [place] [phone] Notes/Report: White Blood Count 12.5 4.8-10.8 X10*3/uL [...] Panel Reviewed date:10/05/2024 12:43:21 PM Interpretation: Performing Lab:[facility], [address] [place] [phone] Notes/Report: Sodium 139 135-145 mmol/L Potassium 4.2 [...] REVIEW Reviewed date:10/05/2024 12:41:54 PM Interpretation: Performing Lab:[facility], [address] [place] [phone] Notes/Report: SLIDE REVIEW VERIFIED CT lumbar spine wo con Reviewed date:10/07/2024 03:28:04 PM Interpretation: Performing Lab: Notes/Report: [address] [address] [address] Scan Report Signed Patient: Javi Smith MR#: [id number] 8 : 1985 Acct:[id number] Age/Sex: 39 / M ADM Date: 10/05/24 Loc: HO.ED Attending Dr: Ordering Physician: Homer Larsen MD Date of Service: 10/05/24 Procedure(s): CT lumbar spine wo IV con Accession Number(s): [id number] cc: Alfonso Sierra MD; Homer Larsen MD [...] 10/05/24 1821 DD/ 1549 TD/TT: 10/05/24 1653 Plant Technician: GEOVANNA [place] [address] [address] Scan Report Signed Patient: Javi Smith MR#: [id number] 8 : 1985 Acct:[id number] Age/Sex: 39 / M ADM Date: 10/05/24 Loc: HO.ED Attending Dr: Ordering Physician: Homer Larsen MD Date of Service: 10/05/24 Procedure(s): CT lum bar spine wo IV con Accession Number(s): [id number] cc: Alfonso Sierra MD; Homer Larsen MD [...] con IMPRESSION: 1. No evidence of ac yocha dehe fracture or traumatic subluxation of the lumbar [...] [facility] Dictated By: Mic Cabral DO Signed By: <Electronically signed by Dave Cabral DO in OV> 10/05/24 1821 DD/ 1549 TD/TT: 10/05/24 1653 Plant Technician: GEOVANNA CT chest wo con Reviewed date:10/14/2024 12:09:34 PM Interpretation:appt 10-14-2024 Performing Lab: Notes/Report: [address] [address] [address] Scan Report Signed Patient: Javi Smith MR#: [id number] 8 : 1985 Acct:[id number] Age/Sex: 39 / M ADM Date: 10/05/24 Loc: HO.ED Attending Dr: Ordering Physician: Homer Larsen MD Date of Service: 10/05/24 Procedure(s): CT chest wo IV con Accession Number(s): [id number] cc: Alfonso Sierra MD; Homer Larsen MD [...] OV> 10/05/242035 DD/ 164 TD/TT: 10/05/24 165 Plant Technician: [address] [address] [address] Scan Report Signed Patient: Javi Smith MR#: [id number] 8 : 1985 Acct:[id number] Age/Sex: 39 / M ADM Date: 10/05/24 Loc: HO.ED Attending Dr: Ordering Physician: Homer Larsen MD Date of Service: 10/05/24 Procedure(s): CT yue st wo IV con Accession Number(s): [id number] cc: Alfonso Sierra MD; Homer Larsen MD [...] in OV> 10/05/242035 DD/ 42 TD/TT: 10/05/241652 Plant Technician: CT head/brain wo con Reviewed date:10/05/2024 01:00:35 PM Interpretation: Performing Lab: Notes/Report: [address] [address] [address] Scan Report Signed Patient: Javi Smith MR#: [id number] 8 : 1985 Acct:[id number] Age/Sex: 39 / M ADM Date: 10/05/24 Loc: HO.ED Attending Dr: Ordering Physician: Homer Larsen MD Date of Service: 10/05/24 Procedure(s): CT head/brain wo IV con Accession Number(s): [id number] cc: Alfonso Sierra MD; Homer Larsen MD [...] 10/05/24 1244 DD/ 1154 TD/TT: 10/05/24 1159 Plant Technician: [place] [address] [address] Scan Report Signed Patient: Javi Smith MR#: [id number] 8 : 1985 Acct:[id number] Age/Sex: 39 / M ADM Date: 10/05/24 Loc: HO.ED Attending Dr: Ordering Physician: Homer Larsen MD Date of Service: 10/05/24 Procedure(s): CT head/brain wo IV con Accession Number(s): [id number] cc: Alfonso Sierra MD; Homer Larsen MD [...] 10/05/24 1244 DD/ 1154 TD/TT: 10/05/24 1159 Plant Technician: XR chest 2V Reviewed date:10/05/2024 04:45:14 PM Interpretation: Performing Lab: Notes/Report: [address] [address] XRay Report Signed Patient: Javi Smith MR#: [id number] 8 : 1985 Acct:[id number] Age/Sex: 39 / M ADM Date: 10/05/24 Loc: HO.ED Attending Dr: Ordering Physician: Homer Larsen MD Date of Service: 10/05/24 Procedure(s): XR chest 2V Accession Number(s): [id number] cc: Alfonso Sierra MD; Homer Larsen MD [...] 10/05/24 1429 DD/ 1320 TD/TT: 10/05/24 1330 Plant Technician: [address] [address] XRay Report Signed Patient: Javi Smith MR#: [id number] 8 : 1985 Acct:[id number] Age/Sex: 39 / M ADM Date: 10/05/24 Loc: HO.ED Attending Dr: Ordering Physician: Homer Larsen MD Date of Service: 10/05/24 Procedure(s): XR chest 2V Accession Number(s): [id number] cc: Alfonso Sierra MD; Homer Larsen MD [...] by: Claude Casas MD 10/05/2024 02:29 PM [facility] Dictated By: Claude Garcia MD Signed By: <Electronically signed by Claude Rowland MD in OV> 10/05/24 1429 DD/ 1320 TD/TT: 10/05/24 1330 Plant Technician: XR lumbar spine 2-3V Reviewed date:10/05/2024 04:45:47 PM Interpretation: Performing Lab: Notes/Report: [address] [address] XRay Report Signed Patient: Javi Smith MR#: [id number] 8 : 1985 Acct:[id number] Age/Sex: 39 / M ADM Date: 10/05/24 Loc: .ED Attending Dr: Ordering Physician: Homer Larsen MD Date of Service: 10/05/24 Procedure(s): XR lumbar spine 2-3V Accession Number(s): [id number] cc: Alfonso Sierra MD; Homer Larsen MD [...] 10/05/24 1432 DD/ 1308 TD/TT: 10/05/24 1330 Plant Technician: [place] [address] XRay Report Signed Patient: Javi Smith MR#: [id number] 8 : 1985 Acct:[id number] Age/Sex: 39 / M ADM Date: 10/05/24 Loc: .ED Attending Dr: Ordering Physician: Homer Larsen MD Date of Service: 10/05/24 Procedure(s): XR lum bar spine 2-3V Accession Number(s): [id number] cc: Alfonso Sierra MD; Homer Larsen MD [...] by: Claude Casas MD 10/05/2024 02:32 PM [facility] Dictated By: Claude Garcia MD Signed By: <Electronically signed by Claude Rowland MD in OV> 10/05/24 1432 DD/ 1308 TD/TT: 10/05/24 1330 Plant Technician: MR lumbar spine wo con Reviewed date:11/18/2024 05:48:20 PM Interpretation: Performing Lab: Notes/Report: [address] [address] Magnetic Resonance Report Signed Patient: Javi Smith MR#: [id number] 8 : 1985 Acct:[id number] Age/Sex: 39 / M ADM Date: 10/19/24 Loc: HO.MRI Attending Dr: Boo Foster MD Ordering Physician: Boo Foster MD Date of Service: 10/19/24 Procedure(s): MR lumbar spine wo con Accession Number(s): [id number] cc: Alfonso Sierra MD; Boo Foster MD EXAMINATION: MR LUMBAR SPINE WITHOUT CONTRAST CLINICAL INFORMATION: 39-year-old with osteoporosis and history of vertebral compression fracture and kyphoplasty, with low back pain. COMPARISON: 01/10/2024 MRI, 10/05/2024 CT. TECHNIQUE: MRI of the lumbar spine was obtained using routine sequences without contrast. FINDINGS: CORONAL ALIGNMENT: Partially imaged lower thoracic dextrocurvature suspected on the land title examiner view on the current study, probably unchanged from prior CT. SAGITTAL ALIGNMENT: There is mild gibbus angulation at the T10-T11 Junction similar to the previous MRI. Otherwise, the lumbosacral spine is anatomically aligned. LUMBOSACRAL JUNCTION: Normal. There are 5 bsq-adi-cgymszn lumbar-type vertebral bodies. VERTEBRAL BODIES: There is [...] Within normal limits. L5-S1: Normal annular contour. Iode-ga-espksdxm facet joint arthropathy right more than left [...] by: Samir Melton MD 11/17/2024 02:16 PM [facility] Dictated By: SAMIR MELTON MD Signed By: <Electronically signed by SAMIR MELTON MD in OV> 11/17/24 1416 DD/ 0743 TD/TT: 10/19/24 0830 Plant Technician: [place] [address] Magnetic Resonance Report Signed Patient: Javi Smith MR#: [id number] 8 : 1985 Acct:[id number] Age/Sex: 39 / M ADM Date: 10/19/24 Loc: HO.MRI Attending Dr: Boo Foster MD Ordering Physician: Boo Foster MD Date of Service: 10/19/24 Procedure(s): MR lum bar spine wo con Accession Number(s): [id number] cc: Alfonso Sierra MD; Boo Foster MD [...] LUMBOSACRAL JUNCTION : Normal. There are 5 iib-krs-wripvji lumbar-type vertebral bodies. VERTEBRAL BODIES: Th ere [...] normal limits. L5-S1: Normal annula r contour. Kwos-ha-fwurbemk facet joint arthropathy right more than left [...] by: Samir Melton MD 11/17/2024 02:16 PM [facility] Dictated By: WILLY MELTON MD Signed By: <Electronically signed by SAMIR MELTON MD in OV> 11/17/24 1416 DD/ 0743 TD/TT: 10/19/24 0830 Plant Technician: US abdomen complete Reviewed date:12/07/2024 12:24:06 PM Interpretation: Performing Lab: Notes/Report: [address] [address] Ultrasound Report Signed Patient: Javi Smith MR#: [id number] 8 : 1985 Acct:[id number] Age/Sex: 39 / M ADM Date: 10/26/24 Loc: HO.US Attending Dr: Alfonso Sierra MD Ordering Physician: Alfonso Sierra MD Date of Service: 10/26/24 Procedure(s): US abdomen complete Accession Number(s): [id number] cc: Alfonso Sierra MD; Lacho Eagle MD [...] OV> 12/07/24 0554 DD/ TD/TT: 10/26/24 0932 Plant Technician: [address] [address] Ultrasound Report Signed Patient: Javi Smith MR#: [id number] 8 : 1985 Acct:[id number] Age/Sex: 39 / M ADM Date: 10/26/24 Loc: HO.US Attending Dr: Alfonso Sierra MD Ordering Physician: Alfonso Sierra MD Date of Service: 10/26/24 Procedure(s): US abd omen complete Accession Number(s): [id number] cc: Alfonso Sierra MD; Lacho Eagle MD [...] by: Gail Baca MD 12/07/2024 05:54 AM [facility] Dictated By: Gail Baca MD Signed By: <Electronically signed by Gail Baca MD in OV> 12/07/24 0554 DD/ 7 TD/TT: 10/26/24931 Plant Technician: Complete Blood Count Man Brit Reviewed date:12/14/2024 12:40:12 PM Interpretation: Performing Lab:[facility], [address] [place] [phone] Notes/Report: White Blood Count 5.3 4.8-10.8 X10*3/uL [...] INR Reviewed date:12/13/2024 05:15:51 PM Interpretation: Performing Lab:[facility], [address] [place] [phone] Notes/Report: Prothrombin Time 11.2 10.9-12.4 SEC INTERNATIONAL [...] Time Reviewed date:12/13/2024 05:15:01 PM Interpretation: Performing Lab:[facility], [address] [place] [phone] Notes/Report: Partial Thromboplastin Time 38.5 26.0-36.8 SEC For information regarding the monitoring of direct thrombin inhibitors, please refer to Pharmacy. Protein C Activity Reflex Ag Reviewed date:12/30/2024 04:16:23 PM Interpretation: Performing Lab:[facility], [address] [place] [phone] Notes/Report: Protein C Activity 141 70-180 % normal THIS TEST WAS PERFORMED AT: [facility] [address] [place] [address] DYAN TUCKER MD,PHD Protein C Antigen Add TNP Protein C Antigen TNP Protein S Activity reflex Ag Reviewed date:12/30/2024 04:16:13 PM Interpretation: Performing Lab:[facility], [address] [place] [phone] Notes/Report: Protein S Activity rflx Tot Fr 84 70-150 % normal THIS TEST WAS PERFORMED AT: [facility] [id number] [place] [address] DYAN TUCKER MD,PHD Protein S Total (Antigenic) TNP Protein S Free Antigen TNP Anti-Thrombin III Antigen Reviewed date:12/30/2024 04:16:01 PM Interpretation: Performing Lab:[facility], [address] [place] [phone] Notes/Report: Anti-Thrombin III Antigen 125 80-120 % normal THIS TEST WAS PERFORMED AT: [facility]/[address] DYAN TUCKER MD,PHD Factor V Leiden Reviewed date:12/30/2024 04:15:48 PM Interpretation: Performing Lab:[facility], [address] [place] [phone] Notes/Report: Factor V Leiden NEGATIVE FACTOR V [...] by Temo Hernandez, Ph.D., [facility], [facility]. VARIANT ANALYSIS: The Factor V Leiden [...] Health care providers, please contact your local [facility] genetic counselor or call [employer] ([phone]) for assistance with interpretation of these results. This test was developed and its analytical performance characteristics have been determined by [facility]. It has not been cleared or approved by the FDA. This assay has been validated pursuant to the CLIA regulations and is used for clinical purposes. THIS TEST WAS PERFORMED AT: [facility] [address] [place] [address] RUBINA OWENS MD,PHD,LATANYA Prothrombin 42529P Reviewed date:12/30/2024 04:15:39 PM Interpretation: Performing Lab:[facility], [address] [place] [phone] Notes/Report: Prothrombin 07697R NEGATIVE RESULT: G 85615R VARIANT NOT DETECTED BV10040A-Fmyyyqelnmvyes See Below INTERPRETATION: This individual is negative (normal) for the M82794W variant in the Prothrombin/Factor II gene. Increased risk of thrombophilia can be caused by a variety of genetic and non-genetic factors not screened for by this assay. Laboratory testing supervised and results monitored by Temo Hernandez, Ph.D., [facility], [facility]. The F16171V mutation [BD868937.1: g.85585H>A (c.*97G>A)] in the Prothrombin/Factor II gene is the second most common inherited risk factor for thrombosis occurring in approximately 2% of Caucasians. Presence of the mutation is associated with an elevation of prothrombin levels to about 30% above normal in heterozygotes and to 70% above normal in homozygotes. Prothrombin (X59686X) mutations are detected by amplification of their [...] Health care providers, please contact your local [facility] genetic counselor or call [phone] ([phone]) for assistance with interpretation of these results. This test was developed and its analytical performance characteristics have been determined by [facility]. It has not been cleared or approved by the FDA. This assay has been validated pursuant to the CLIA regulations and is used for clinical purposes. THIS TEST WAS PERFORMED AT: [facility] [address] [place] [address] RUBINA OWENS MD,PHD,LATANYA Lupus Anticoagulant Panel Reviewed date:12/30/2024 04:15:31 PM Interpretation: Performing Lab:[facility], [address] [place] [phone] Notes/Report: Lupus Interpretation see note A Lupus Anticoagulant is not detected. Reference Range: Not Detected For additional information, please refer to http://[employer].Bizily/fa q/CDY88w3 (This link is being provided for informational/ educational purposes only.) This interpretation is based on the following test results. PTT (LAC) Screen 35 <=40 sec DRVVT Screen 36 <=45 sec THIS TEST WAS PERFORMED AT: [facility]/[address] [address] DYAN TUCKER MD,PHD DRVVT Confirmation TNP DRVVT 1:1 Mix TNP DRVVT 1:1 Mix Interpretation TNP Hexagonal Phase Neutralization TNP Thrombin Clotting Time TNP Comprehensive Met. Panel Reviewed date:12/13/2024 05:12:10 PM Interpretation: Performing Lab:[facility], [address] [place] [phone] Notes/Report: Sodium 139 135-145 mmol/L Potassium 4.4 [...] Sensitivity Reviewed date:12/13/2024 05:13:25 PM Interpretation: Performing Lab:[facility], [address] [place] [phone] Notes/Report: D Dimer High Sensitivity 217 D-DIMER [...] Leiden Reviewed date:12/30/2024 04:15:09 PM Interpretation: Performing Lab:[facility], [address] [place] [phone] Notes/Report: Factor V Leiden NEGATIVE FACTOR V [...] by Temo Hernandez, Ph.D., [facility], [facility]. VARIANT ANALYSIS: The Factor V Leiden [...] Health care providers, please contact your local [facility] genetic counselor or call [phone] ([phone]) for assistance with interpretation of these results. This test was developed and its analytical performance characteristics have been determined by [facility]. It has not been cleared or approved by the FDA. This assay has been validated pursuant to the CLIA regulations and is used for clinical purposes. THIS TEST WAS PERFORMED AT: [facility] [address] [place] [address] RUBINA OWENS MD,PHD,LATANYA Complete Blood Count Auto Di ff Reviewed date:04/28/2025 02:14:41 PM Interpretation: Performing Lab:[facility], [address] [place] [phone] Notes/Report: White Blood Count 5.1 4.8-10.8 X10*3/uL [...] Panel Reviewed date:04/28/2025 01:50:20 PM Interpretation: Performing Lab:[facility], [address] [place] [phone] Notes/Report: Sodium 136 135-145 mmol/L Potassium 4.4 [...] Sensitivity Reviewed date:04/28/2025 01:50:26 PM Interpretation: Performing Lab:[facility], [address] [place] [phone] Notes/Report: D Dimer High Sensitivity 205 D-DIMER [...] date:04/29/2025 12:47:22 PM Interpretation: Performing Lab: Notes/Report: [address] [address] Ultrasound Report Signed Patient: Javi Smith MR#: [id number] 8 : 1985 Acct:[id number] Age/Sex: 40 / M ADM Date: 04/28/25 Loc: HO.US Attending Dr: Coreen Henson NP Ordering Physician: Coreen Henson NP Date of Service: 04/28/25 Procedure(s): US venous duplex LE LT Accession Number(s): [id number] cc: Alfonso Sierra MD; Mariah Ivy MD; [...] 04/28/25 1515 DD/ 1454 TD/TT: 04/28/25 1507 Plant Technician: [address] [address] Ultrasound Report Signed Patient: Javi Smith MR#: [id number] 8 : 1985 Acct:[id number] Age/Sex: 40 / M ADM Date: 04/28/25 Loc: HO.US Attending Dr: Chantelle Henson NP Ordering Physician: Coreen Henson NP Date of Service: 04/28/25 Procedure(s): US anton ous duplex LE LT Accession Number(s): [id number] cc: Alfonso Sierra MD; Mariah Ivy MD; [...] 04/28/25 1515 DD/ 1454 TD/TT: 04/28/25 1507 Plant Technician: Complete Blood Count Auto Di ff Reviewed date:07/28/2025 12:15:05 PM Interpretation: Performing Lab:[facility], [address] [place] [phone] Notes/Report: White Blood Count 7.4 4.8-10.8 X10*3/uL [...] Panel Reviewed date:07/28/2025 12:15:33 PM Interpretation: Performing Lab:[facility], [address] [place] [phone] Notes/Report: Sodium 137 135-145 mmol/L Potassium 4.4 [...] Direct Reviewed date:07/28/2025 12:14:41 PM Interpretation: Performing Lab:[facility], [address] [place] [phone] Notes/Report: Bilirubin Direct 1.7 0.0-0.5 mg/dL Lactate Dehydrogenase Reviewed date:07/28/2025 12:14:09 PM Interpretation: Performing Lab:[facility], [address] [place] [phone] Notes/Report: Lactate Dehydrogenase 195 118-273 U/L D [place]imer High Sensitivity Reviewed date:07/28/2025 12:14:23 PM Interpretation: Performing Lab:[facility], [address] [place] [phone] Notes/Report: D Dimer High Sensitivity 1314 Results [...] Status W/U Status Risk Notes Problem Osteopetrosis (8334366) Osteopetrosis (Q78.2) Active confirmed Problem Ascites (263579835) Other ascites (R18.8) Active confirmed Problem 666125866 Seizure disorder (G40.909) Active confirmed Problem Ulcerative proctocolitis (315877277) 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 Problem 626536976159020 Acute saddle pulmonary embolism without acute cor pulmonale (I26.92) Active confirmed Problem 7605596 Clubbing of nail (R68.3) Active confirmed Problem 423101359 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 Problem 552882331 Compression fracture of thoracic vertebra with routine [...] Alfonso Sierra MD [address] [place] [id number] 03/10/2025 Alfonso Sierra Blood tests for routine general physical examination Z00.00 and 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 Alfonso Sierra MD [address] [place] [id number] 09/09/2024 Alfonso Sierra Seizure disorder G40.909 Alfonso Sierra MD [address] [place] [id number] 10/14/2024 Alfonso Sierra Seizure disorder G40.909 ; 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 and Other ascites R18.8 Alfonos Sierra MD [address] [place] [id number] 11/16/2024 Alfonso Sierra Acute saddle pulmonary embolism without acute cor pulmonale I26.92 Alfonso Sierra MD [address] [place] [id number] 12/14/2024 Alfonso Sierra 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 ; Osteopetrosis Q78.2 and Compression fracture of thoracic vertebra with routine healing, unspecified thoracic vertebral level, subsequent encounter S22.000D Alfonso Sierra MD [address] [place] [id number] 03/17/2025 Alfonso Sierra Compression fracture of thoracic vertebra with routine healing, unspecified thoracic vertebral level, subsequent encounter S22.000D ; Annual physical exam Z00.00 ; Osteopetrosis Q78.2 ; Acute saddle pulmonary embolism without acute cor pulmonale I26.92 and Depression screening Z13.31 Alfonso Sierra MD [address] [place] [id number] 07/07/2025 Alfonso Sierra Hemangioma D18.00 an d Hemangioma of skin D18.01 Alfonso Sierra MD [address] [place] [id number] 09/14/2024 Alfonso Sierra Acute saddle pulmonary embolism without acute cor pulmonale I26.92 Alfonso Sierra MD [address] [place] [id number] 10/07/2024 Alfonso Sierra MD [address] [place] [address] [id number] 10/11/2024 Alfonso Sierra MD [address] [place] [id number] 10/15/2024 Alfonso Sierra 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 and Other ascites R18.8 Alfonso Sierra MD [address] [place] [id number] 03/24/2025 Alfonso Sierra MD [address] [place] [id number] 04/11/2025 Alfonso Sierra Assessments Encounter Date Diagnosis [...] 10:45:00 AM, [address], [address], [place], [place], [id number], Provider Name:Alfonso Avendano michelle, 03/14/2026 07:30:00 AM, [address] [facility], [address], [place], [place], [phone], Provider Name:Alfonso Avendano ozzier, 03/21/2026 10:30:00 AM, [address] [place] [address], Suite [facility], [place], [place], [phone], Insurance Providers Payer Name Payer Address Payer Phone Subscriber Number Group Number Insured Name Patient Relationship to Insured Coverage Start Date Coverage End Date [facility] [address] [address] [place] [address] [phone] [id number] Javi Smith Self - patient is the insured [facility] [place] [facility] [address] [place] [address] [id number] Javi Smith Self - patient is the insured Medical (General) History Medical History History ICD Code 04/30/2019 - colonoscopy by Dr. Eagle : Clonoscopy 12/10/22 pending path daquan pierre
--- OUTSIDE RECORDS SUMMARY | 2025-08-30 18:24 | XMS_ITS | Continuity of Care Document ---
Author Organization [facility] Address [address] [place] [address] Phone [phone] Social History Type Date Description Comments Sex Male Sex Unknown Medical Devices Description No Information Available Encounters Description No Information Available Assessments Description No Information Available Plan of Treatment No Information Available Functional Status Description No Information Available Mental Status Description No Information Available Referrals Description No Information Available
--- OUTSIDE RECORDS SUMMARY | 2025-08-30 18:24 | XMS_ITS | Patient Health Record ---
Author Organization [facility] Address [address] [place] [address] Care Team Providers Care Commutator Inspector Name Role Phone Alfonso Sierra MD Primary Care Provider Lacho Zhou Jr Unavailable [phone] Allergies No Known Allergies Results Component Value Reference Range Notes US abdomen complete Reviewed date:12/07/2024 02:40:22 PM Interpretation: Performing Lab: Notes/Report: [address] [address] Ultrasound Report Signed Patient: George Smith MR#: [id number] 8 : 1985 Acct:[id number] Age/Sex: 39 / M ADM Date: 10/26/24 Loc: HO.US Attending Dr: Alfonso Sierra MD Ordering Physician: Alfonso Sierra MD Date of Service: 10/26/24 Procedure(s): US abdomen complete Accession Number(s): [id number] cc: Alfonso Sierra MD; Lacho Eagle MD [...] by: Gail Baca MD 12/07/2024 05:54 AM [facility] [place] Dictated By: Gail Baca MD Signed By: <Electronically signed by Gail Baca MD in OV> 12/07/24 0554 DD/ 7 TD/TT: 10/26/24 09 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: Reason For Referral No Information Medications Medication [...] Status Risk Notes Problem Chronic ulcerative pancolitis (714373927) Ulcerative pancolitis without complication (K51.00) Active confirmed Problem Ulcerative pancolitis (119296987) Ulcerative pancolitis (K51.00) Active confirmed Problem Ulcerative colitis (89488089) Ulcerative colitis, unspecified (K51.90) Active confirmed Problem 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 Problem Sclerosing cholangitis (829605061) Sclerosing cholangitis (K83.09) Active confirmed Vital Signs Temperature 97.7 degrees Fahrenheit 06/30/2025 Blood pressure diastolic 01 mm Hg 06/30/2025 Height 65.50 in 06/30/2025 Blood pressure systolic 001 mm Hg 06/30/2025 Weight 123.6 lbs 06/30/2025 BMI 20.25 kg/m2 06/30/2025 Encounters Encounter Location Date Provider Diagnosis [facility] [address] [place] [phone] 06/30/2025 Lacho Eagle Jr 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 and Ulcerative pancolitis without complication K51.00 [facility] [address] [place] [phone] 03/17/2025 Lacho Eagle Jr [facility] [address] [place] [phone] 05/25/2025 Lacho Eagle Jr Assessments Encounter Date [...] Provider Name:Lacho funes Jr, 06/29/2026 02:35:00 PM, [address] [place] [address], [address], [place], [address], Insurance Providers Payer Name Payer Address Payer Phone Subscriber Number Group Number Insured Name Patient Relationship to Insured Coverage Start Date Coverage End Date [facility] [address] [address] [place], [place] [id number] GEORGE SMITH Self - patient is the insured MEDICAID OF [facility] [address] [place] [address] [id number] GEORGE SMITH Self - patient is the insured Medical (General) History Medical History History ICD Code primary sclerosing cholangitis ulcerative colitis, diagnosi s 08/11, current treatment Lialda, colonoscopy 12/26, no active colitis on biopsies, three-year followup spinal fractures surgery february 04, 2023 Pulmonary embolus Surgical History Surgery Date(Month/Year) spinal fracures 02/2023 Right inguinal herniorrhaphy 04/2017
--- OUTSIDE RECORDS SUMMARY | 2025-08-30 18:24 | XMS_ITS | Encounter Summary ---
Author Organization [facility] Address [address] [place] [address] Phone Care Team Providers Care Substation Manager Name Role Phone Alfonso Sierra MD Primary Care Provider Encounter Details Date Type Department Care Team (Latest Contact Info) Description 04/30/2024 Ancillary Orders Bone Density, [facility] - [address], [address] [place] [id number] Boo Foster MD [address] [place] [address] Age-related osteoporosis without current pathological fracture (Primary [...] Referred By: BOO FOSTER Indications: Osteoporosis Scanner: ELENZA W with serial# of [id number] located at [facility] Bone Density Scan (DXA) 05/31/24 Details of [...] -2.5), or Osteoporosis (T-score <= -2.5). At [facility], T-scores are compared to peak bone density [...] Referred By: BOO FOSTER Indications: Osteoporosis Scanner: HoloStypi W with serial# of [id number] located at [facility] Bone Density Scan (DXA) 05/31/24 Details of [...] Imaging of all sites was of adequate quality.[id number] FRAX: A FRAX(r) score was not calculated because the patient is under the age of 40. Additional Information: -World Health Organization criteria classify adults based on lowestT-score at [place] spine, hip or forearm: Normal (T-score >= -1.0), Osteopenia (T-score between -1 and -2.5), or Osteoporosis (T-score <= -2.5). At [facility], T-scores are compared to peak bone density [...] fracture documented in this encounter Care Teams Substation Manager Relationship Specialty Start Date End Date Alfonso Sierra MD [address] [place] [address] [place] [address] PCP - General 01/13/24 documented as of this encounter Additional Source Comments The information contained in this document represents components of the legal health record. It is not the complete legal health record.[facility]
--- OUTSIDE RECORDS SUMMARY | 2025-08-30 18:24 | XMS_ITS | Clinical Summary ---
Author Organization [facility] Address [address] [place] [address] Phone Care Team Providers Care Plugger Man Name Role Phone Physician, Pcp Unknown Primary [...] patient's age to complete this topic Insurance [facility] Care Teams Plugger Man Relationship Specialty Start Date End Date Physician, Pcp Unknown PCP - General 01/03/25
--- OUTSIDE RECORDS SUMMARY | 2025-08-30 18:24 | XMS_ITS | Clinical Summary ---
Author Organization [facility] Address [address] [place] [phone] Phone Care Team Providers Care Commercial Carpenter Name Role Phone Alfonso Sierra MD Primary [...] topic Medical Devices Not on file Insurance [employer] [facility] Care Teams Commercial Carpenter Relationship Specialty Start Date End Date Alfonso Sierra MD [address] [place] [address] [place] [id number] PCP - General 01/13/24 Additional Source Comments The information contained in this document represents components of the legal health record. It is not the complete legal health record.[facility]
== END 2025-08-30 14:11 | disposition home or self-care (01) ==
LOC: HO.HSM 14:01
PROVIDERS: PCP Internal Medicine; Referring Provider Internal Medicine; Visit Provider Registered Nurse
DX: G40.909 Epilepsy, unspecified, not intractable, without status epilepticus (principal)
CPT/HCPCS: 99214

== ENCOUNTER → 2025-08-30 14:00 | Outpatient (BNVA) | payer OTHER, SELFPAY | PROVIDERS: PCP Internal Medicine; Referring Provider Internal Medicine; Visit Provider Registered Nurse | DX: G40.909 Epilepsy, unspecified, not intractable, without status epilepticus (principal); Z79.899 Other long term (current) drug therapy | CPT/HCPCS: 99212 ==